=== PATIENT | female | born 1940 | race Caucasian/White ===

== ENCOUNTER → 2016-09-25 | Outpatient (CLI) | payer OTHER ==
[~2016-09-25] MED LIST: ACET-1256 PO; AMT50 PO; ASCO100061 PO; ASPEC81 PO; ATOR-24 PO; CHOL2000 PO; CPXI SC; CYAN10005 PO; GABA800T2 PO; HYDR-3983 PO; LINA1CAP PO; LISI-461 PO; MECL1TAB42 PO; NRN100 PO; PANT40TA PO; TERA5CAP PO
--- NOTE | 2016-09-25 17:03 | DIAGNOSTIC IMAGING REPORT ---
Venous Doppler left leg LEFT VENOUS DOPP LOWER EXT UNILAT CLINICAL HISTORY: M79.89 Leg swelling pain. Edema. TECHNIQUE: Venous Doppler COMPARISON STUDY: None FINDINGS: Normal study IMPRESSION: Normal study Electronically signed by: Richie Barcenas M.D. 09/25/2016 5:01 PM Dictated Date/Time: 09/25/2016 5:01 PM
--- NOTE | 2016-10-02 09:08 | CODING QUERY MEDICAL NECESSITY ---
SUPPORTING DIAGNOSIS NEEDED A supporting diagnosis is required for the test/procedure performed on this patient in order for us to be reimbursed by the patient's insurance. Please provide a supporting diagnosis for the following test/procedure listed below next to the test name along with your signature. *If there is no additional diagnosis for this patient that would support the following test/procedure please document that below next to the test/procedure. Test(s)/Procedure(s) that require a supporting diagnosis: * VENOUS DOPPLER LOWER EXTREMITY DIAGNOSIS: * DOS: 09/25/16 Provider Signature: Date: Thank you Gracie Gandhi Health Information Management Once completed, please kindly fax back to [phone] For questions please call [phone]
== END | disposition home or self-care (01) ==
LOC: C.ULTR 16:33
PROVIDERS: ATTEND Internal Medicine
DX: M79.89 Other specified soft tissue disorders (principal); R60.0 Localized edema

== ENCOUNTER → 2016-11-29 | Outpatient (CLI) | payer OTHER ==
[~2016-11-29] MED LIST changes: +ASPI-435 PO; +CLB/200 PO; +GABA1CAP4 PO; +LISI20TA3 PO
[2016-11-29 13:20] LABS: HEMATOCRIT 43.5 % (37-47); MEAN CELL VOLUME 96.5 fL (80-100); MEAN CORPUSCULAR HEMOGLOBIN 30.2 pg (25-34); MEAN CORPUSCULAR HGB CONC 31.3 g/dl (32-36); MEAN PLATELET VOLUME 10.7 fL (7.4-10.4); PLATELET COUNT 253 K/uL (130-400); RED BLOOD COUNT 4.51 M/uL (4.2-5.4); WHITE BLOOD COUNT 7.68 K/uL (4.8-10.8)
[2016-11-29 13:44] LABS: ESTIMATED AVERAGE GLUCOSE 120 mg/dl; HA1C FLAG Normal (Normal)
[2016-11-29 13:45] LABS: ALT/SGPT 21 U/L (12-78); AST/SGOT 18 U/L (15-37); BLOOD UREA NITROGEN 22 mg/dl (7-18); BUN/CREATININE RATIO 16.9 (10-20); CALCIUM 9.4 mg/dl (8.5-10.1); CARBON DIOXIDE 33 mmol/L (21-32); CHLORIDE 104 mmol/L (98-107); GLUCOSE 87 mg/dl (70-99); SODIUM 141 mmol/L (136-145)
[2016-11-29 13:56] LABS: ALKALINE PHOSPHATASE 158 U/L (45-117)
== END | disposition home or self-care (01) ==
LOC: C.LAB1850 12:22
PROVIDERS: ATTEND Internal Medicine
DX: R73.01 Impaired fasting glucose (principal); I10 Essential (primary) hypertension

== ENCOUNTER 2017-05-17 07:41 | Emergency (ER) | payer OTHER ==
[~2017-05-17] VITALS: Ht 175.3 cm; Wt 110.2 kg
[~2017-05-17 07:41] MED LIST changes: -ASPI-435 PO; -CLB/200 PO; -GABA1CAP4 PO; -LISI20TA3 PO
[2017-05-17 07:44] VITALS: TEMP 36.8; Ht 175.3 cm; Wt 110.2 kg
[2017-05-17] MEDS ORDERED: GABA1CAP4 PO (08:08)
[2017-05-17] MEDS ORDERED: CLB/200 PO (08:08)
[2017-05-17] MEDS ORDERED: ASPI-435 PO (08:08)
[2017-05-17] MEDS ORDERED: LISI20TA3 PO (08:08)
--- NOTE | 2017-05-17 08:17 | EMERGENCY ROOM VISIT NOTE ---
History Report prepared by Adry: Leana Daugherty Under the Supervision of: Dr. Jose Magana M.D. First contact with patient: 07:51 Chief Complaint: LACERATION/CUT (SUT/DERMABOND) Stated Complaint: FALL/LACERATION Nursing Triage Summary: pt has hx of MS and leg weakness, this am in [place] pt states " i just took a tumble" hit back of head on the wall" normally uses a walker. no loc History of Present Illness The patient is a 76 year old female who presents to the Emergency Room with complaints of an episode of a fall occurring this morning. The patient was in her bedroom. She typically ambulates with a walker due to her MS. This morning her legs felt weak which she states is typical of her MS. This caused her to fall. She denies LOC. She did hit her head and has a small laceration to the back of her head. The patient denies headache, changes in vision, changes in hearing, and neck pain. Her tetanus is up to date. She was brought to the ED by ambulance. Source of History: patient Onset: [employer] Position: other (global) Quality: other (fall) Timing: other (episode) Associated Symptoms: + weakness (legs) Note: Pt has small laceration to head Review of Systems All systems have been listed, reviewed, and are negative other than those previously mentioned. Please see Additional Medical History Sheet. 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 (15) Trigeminal neuralgia (16) Trigeminal neuralgia of left side of face (17) UTI, MS, weakness (18) UTI, MS, weakness Surgical Problems: (1) Hysterectomy Family History FH: HTN (hypertension) FH: cancer FH: diabetes mellitus FH: heart disease Social History Smoking Status: Former Smoker Alcohol Use: none Drug Use: none Marital Status: Housing Status: lives alone Occupation Status: retired Current/Historical Medications Scheduled Amitriptyline Hcl (Elavil), 50 MG PO HS Ascorbic Acid (Ascorbic Acid), 1,000 MG PO BID Aspirin (Aspirin 81), 81 MG PO DAILY Atorvastatin (Lipitor), 40 MG PO HS Celecoxib (CeleBREX), 200 MG PO BID Cholecalciferol (Vitamin D3), 2,000 INTER.UNIT PO DAILY Cyanocobalamin (Vitamin B-12), 1,000 MCG PO DAILY Gabapentin (Neurontin), 1,600 MG PO TID Gabapentin (Gabapentin), 300 MG PO TID Glatiramer Acetate (Copaxone), 20 MG SC DAILY Lisinopril (Prinivil), 20 MG PO DAILY Pantoprazole Sodium (Protonix), 40 MG PO DAILY Terazosin (Hytrin), 5 MG PO HS Scheduled PRN Acetaminophen (Tylenol), 500 MG PO for Pain Allergies Coded Allergies: No Known Allergies (Unverified , 12/18/15) Physical Exam Vital Signs Date Time Temp Pulse Resp B/P (MAP) Pulse Ox O2 Delivery O2 Flow Rate FiO2 05/17/17 08:53 80 18 108/51 93 Room Air 05/17/17 07:44 36.8 75 19 116/53 92 Room Air Physical Exam GENERAL: Patient awake, alert, oriented x 3. Patient follows commands. Patient does not appear toxic. Patient is adequately hydrated and well- nourished. SKIN: No erythema, pallor, cyanosis or rash HEENT: Normal head, 1.5 cm gaping laceration to the mid-occiput. Pupils equal, reactive to light and accommodation. Ears normal. Oral cavity and posterior pharynx appear normal. Neck: Without adenopathy, no neck vein distention. LUNGS: Clear to auscultation. No wheezes, no rales, no rhonchi. HEART: No murmurs. No gallops. No rubs NEUROLOGIC: Cranial nerves II-XII within normal limits. No gross motor sensory function deficits. Medical Decision & Procedures Procedure Location: Scalp Total length: 1.5 cm Complexity: Simple Copious irrigation was performed using NSS. The hair was cleared from the wound. Debridement was not performed. The wound edges were approximated using 2 surgical jeffrey in the standard fashion. Hemostasis and excellent approximation was achieved. Detailed wound care instructions and signs and symptoms of infection reviewed with the patient. No complications and the patient tolerated the procedure well. ED Course 0751: Past medical records reviewed. The patient was evaluated in room A3. A complete history and physical examination was performed. 0754: At this time I performed a laceration repair. Please see procedure note above for further details. 0800: I discussed the results and treatment plan with the patient. I answered all pertaining questions that she had. She expressed understanding and verbalized agreement. The patient will be discharged home. Medical Decision Nurses notes reviewed. Medical history sheet reviewed. Differential diagnosis includes but is not limited to: fall, scalp laceration, closed head injury, neck injury. 76-year-old female fell this morning which she attributes to her MS. The patient's had falls like this in the past there is no preceding syncope or dizziness. The patient has a small laceration over her occiput. She has no headache change in vision or hearing. The patient has no neck pain. The laceration was stapled.. I do not believe the patient requires any imaging or lab tests. The patient is safe to return home. Jeffrey should be removed in approximately one week. Medication Reconcilliation Current Medication List: was personally reviewed by me Blood Pressure Screening Patient's blood pressure: Normal blood pressure Impression Primary Impression: Laceration of scalp Additional Impression: Fall Scribe Attestation The scribe's documentation has been prepared under my direction and personally reviewed by me in its entirety. I confirm that the note above accurately reflects all work, treatment, procedures, and medical decision making performed by me. Departure Information Dispostion Home / Self-Care Referrals Naun Alvarez M.D. (PCP) Forms HOME CARE DOCUMENTATION FORM, IMPORTANT VISIT INFORMATION Patient Instructions ED Wound Care, [facility] Additional Instructions Watch for any signs of infection: Redness, swelling, pus. If you note any signs of infection return here immediately. Otherwise, return here for staple removal in approximately one week. Problem Qualifiers Primary Impression: Laceration of scalp Encounter type: initial encounter Qualified Codes: S01.01XA - Laceration without foreign body of scalp, initial encounter Additional Impression: Fall Encounter type: initial encounter Qualified Codes: W19.XXXA - Unspecified fall, initial encounter
[2017-05-17 08:53] VITALS: BP 108/51; PULSE 80; O2SAT 93
== END 2017-05-17 08:54 | disposition home or self-care (01) ==
LOC: EDBD 07:41 → C.EDA 07:42
DX: S01.01XA Laceration without foreign body of scalp, initial encounter (principal); W19.XXXA Unspecified fall, initial encounter; I10 Essential (primary) hypertension; E21.3 Hyperparathyroidism, unspecified; G35 Multiple sclerosis; N31.9 Neuromuscular dysfunction of bladder, unspecified; Z91.81 History of falling; Z87.11 Personal history of peptic ulcer disease; Z87.19 Personal history of other diseases of the digestive system; Z87.440 Personal history of urinary (tract) infections; Z87.891 Personal history of nicotine dependence; Z79.82 Long term (current) use of aspirin; Z79.899 Other long term (current) drug therapy; Z82.49 Family history of ischemic heart disease and other diseases of the circulatory system; Z80.9 Family history of malignant neoplasm, unspecified; Z83.3 Family history of diabetes mellitus

== ENCOUNTER → 2017-12-04 | Outpatient (CLI) | payer OTHER ==
[~2017-12-04] MED LIST changes: -ASPEC81 PO; +ASPI-435 PO; +CLB/200 PO; +GABA-1219 PO; -HYDR-3983 PO; -LINA1CAP PO; -LISI-461 PO; +LISI20TA3 PO; -MECL1TAB42 PO; -NRN100 PO
[2017-12-04 12:31] LABS: BASO % 0.5 %; BASO ABS # 0.04 K/uL (0-0.2); EOS % 5.4 %; EOS ABS # 0.44 K/uL (0-0.5); HEMATOCRIT 42.5 % (37-47); HEMOGLOBIN 13.5 g/dL (12.0-16.0); IG# 0.03 K/uL (0.00-0.02); LYMPH % 23.7 %; LYMPH ABS # 1.94 K/uL (1.2-3.4); MEAN CELL VOLUME 95.9 fL (80-100); MEAN CORPUSCULAR HEMOGLOBIN 30.5 pg (25-34); MEAN CORPUSCULAR HGB CONC 31.8 g/dl (32-36); MEAN PLATELET VOLUME 10.7 fL (7.4-10.4); MONO % 6.7 %; MONO ABS # 0.55 K/uL (0.11-0.59); NEUT % 63.3 %; NEUT ABS # 5.18 K/uL (1.4-6.5); PLATELET COUNT 277 K/uL (130-400); RED CELL DISTRIBUTION WIDTH CV 13.2 % (11.5-14.5); RED CELL DISTRIBUTION WIDTH SD 45.7 fL (36.4-46.3); WHITE BLOOD COUNT 8.18 K/uL (4.8-10.8)
[2017-12-04 13:00] LABS: HEMOGLOBIN A1C 5.7 % (4.5-5.6)
[2017-12-04 13:14] LABS: ALBUMIN 3.5 gm/dl (3.4-5.0); ALT/SGPT 17 U/L (12-78); AST/SGOT 18 U/L (15-37); BLOOD UREA NITROGEN 15 mg/dl (7-18); CALCIUM 9.2 mg/dl (8.5-10.1); CARBON DIOXIDE 30 mmol/L (21-32); CREATININE 0.83 mg/dl (0.60-1.20); GLUCOSE 97 mg/dl (70-99); SODIUM 141 mmol/L (136-145)
[2017-12-04 13:17] LABS: ALKALINE PHOSPHATASE 174 U/L (45-117); CHOLESTEROL 109 mg/dl (0-200); LDL CHOLESTEROL CALCULATED 32 mg/dl; TOTAL PROTEIN 7.3 gm/dl (6.4-8.2)
== END | disposition home or self-care (01) ==
LOC: C.LABBFT 11:00
PROVIDERS: ATTEND Internal Medicine
DX: R73.01 Impaired fasting glucose (principal); E78.5 Hyperlipidemia, unspecified; I10 Essential (primary) hypertension

== ENCOUNTER → 2017-12-12 | Outpatient (CLI) | payer OTHER | END | disposition home or self-care (01) | LOC: C.LABBFT 10:22 | PROVIDERS: ATTEND Internal Medicine | DX: Z00.00 Encounter for general adult medical examination without abnormal findings (principal) ==

== ENCOUNTER 2018-12-10 13:37 | Inpatient (IN) ==
[2018-12-10] MEDS ORDERED: FAMOTIDINE 20MG/5ML IV PUSH IV STA (14:37)
[2018-12-10 15:06] LABS: Basophils # (auto) 0.04 K/uL (0-0.2); Basophils % (auto) 0.3 %; Eosinophils # (auto) 0.19 K/uL (0-0.5); Eosinophils % (auto) 1.2 %; Hematocrit (blood only) 36.5 % (37-47); Hemoglobin 12.7 g/dL (12.0-16.0); Immature Granulocytes # (auto) 0.06 K/uL (0.00-0.02); Immature Granulocytes % (auto) 0.4 %; Lymphocytes # (auto) 1.38 K/uL (1.2-3.4); Mean Corpuscular Hgb Conc 34.8 g/dL (32-36); Mean Corpuscular Volume 91.5 fL (80-100); Mean Platelet Volume 9.5 fL (7.4-10.4); Monocytes # (auto) 1.06 K/uL (0.11-0.59); Monocytes % (auto) 6.9 %; Neutrophils # (auto) 12.67 K/uL (1.4-6.5); Neutrophils % (auto) 82.2 %; Platelet Count 368 K/uL (130-400); RDW Standard Deviation 43.9 fL (36.4-46.3); Red Blood Count 3.99 M/uL (4.2-5.4)
[2018-12-10 15:20] LABS: Partial Thromboplastin Ratio 0.9; Prothrombin Time 10.2 Seconds (9.0-12.0)
[2018-12-10 15:28] LABS: Alanine Aminotransferase 15 U/L (12-78); Albumin Level 3.3 gm/dl (3.4-5.0); Aspartate Aminotransferase 17 U/L (15-37); BUN Creatinine Ratio 20.5 (10-20); Blood Urea Nitrogen 20 mg/dl (7-18); Calcium 9.9 mg/dl (8.5-10.1); Carbon Dioxide 34 mmol/L (21-32); Chloride 96 mmol/L (98-107); Creatinine Clr Calc Pharmacy 56.4 ml/min; Est GFR (African American) 62.4; Est GFR (Non-African American) 53.8; Glucose 104 mg/dl (70-99); Potassium 5.1 mmol/L (3.5-5.1); Sodium 132 mmol/L (136-145)
[2018-12-10 15:33] LABS: Albumin Globulin Ratio 0.7 (0.9-2); Alkaline Phosphatase 121 U/L (45-117); Bilirubin,Total 0.3 mg/dl (0.2-1); Globulin 4.5 gm/dl (2.5-4.0); Total Protein 7.8 gm/dl (6.4-8.2); Troponin I < 0.015 ng/ml (0-0.045)
--- NOTE | 2018-12-10 15:50 | CT Scan Report ---
CT abd pelvis wo con CLINICAL HISTORY: 78 years-old Female presenting with upper abd pain, vomiting. TECHNIQUE: Multidetector CT of the abdomen and pelvis was performed without the use of intravenous co ntrast. IV contrast: None. One or more dose lowering techniques were used consistent with the princip les of ALARA (as low as reasonably achievable), including automatic exposure control, mA or kV adjust ment to individual patient size, and/or use of iterative reconstruction. COMPARISON: 05/27/2018. CT DOSE (mGy.cm): The estimated cumulative dose is 1580.18 mGy.cm. FINDINGS: [employer] topogram: Unremarkable. Lung bases: Top normal heart size. Coronary artery calcification. No pericardial or pleural effusion. Extensive bandlike opacities at the lung bases likely atelectasis or scarring. Mosaic attenuation ma y suggest small airways disease. Liver: Normal morphology. No liver lesion. Patent hepatic vasculature. Biliary: No gross biliary ductal dilatation allowing for noncontrast technique. Normal gallbladder. Pancreas: Moderate parenchymal atrophy. Spleen: Normal noncontrast appearance. Adrenal glands: Normal. Kidneys and ureters: Parenchymal atrophy suggested. Exophytic cyst likely present at the upper pole o f the left kidney. No hydronephrosis. No nephrolithiasis. Ureters nondistended. Bladder: A Gamboa catheter decompresses the urinary bladder. Pelvic organs: Uterus surgically absent. Left ovary may still be present unchanged in appearance from prior exam. The right ovary is not visualized. Bowel: Infiltration of the mesorectal fat in the presacral region is new from prior. No significant w all thickening of the rectum. Diverticulosis of the proximal to mid sigmoid colon. No wall thickening or pericolonic inflammatory change. A limited portion of the abdomen is nonocclusive within the fiel d-of-view on the far left lateral aspect due to the configuration of the pannus and patient positioni ng. Peritoneal cavity: No free fluid or intraperitoneal gas. Lymph nodes: No gross lymphadenopathy allowing for noncontrast technique. Vasculature: Atherosclerosis of the normal caliber abdominal aorta. Abdominal wall: Pannus not fully included within the [id number]. Low density subcutaneous nodule i ntimately associated with the overlying cutis measuring 2 cm in the precordial/epigastric region, lik clare epidermal inclusion cyst. Musculoskeletal: Degenerative changes of the spine. Osteopenia. Old left lateral ninth rib fractures suggested. Moderate compression fracture of L1 as on prior exam. IMPRESSION: 1. Allowing for noncontrast technique, no acute intra-abdominal pathology in the upper abdomen. Singh warren, new infiltrative change in the mesorectal fat along the posterior rectum without accompanying ch anges of the rectum. This is not specific and proctitis is not favored as the etiology for this findi ng. Consider rectal exam if appropriate. 2. Diverticulosis coli. No evidence of diverticulitis. 3. Chronic compression fracture of L1. Electronically signed by: Sanjeev Miller M.D. 12/10/2018 3:49 PM
--- NOTE | 2018-12-10 16:14 | XRay Report ---
XR chest 1V portable CLINICAL HISTORY: 78 years-old Female presenting with Chest Pain, weakness. TECHNIQUE: Portable upright AP view of the chest was obtained. COMPARISON: . FINDINGS: Atherosclerosis of the aortic arch. Cardiac silhouette borderline enlarged. Slight interval improved aeration of the lung bases with decrease in bibasilar vague opacity. No new focal opacity. No large e ffusion or pneumothorax. Degenerative changes of the thoracic spine. Upper abdomen normal. IMPRESSION: 1. Improved aeration of the lung bases since the prior exam. Minimal bibasilar atelectasis suspected . 2. Borderline cardiomegaly. Electronically signed by: Sanjeev Miller M.D. 12/10/2018 4:12 PM
[2018-12-10] MEDS ORDERED: PANTOprazole 80 MG in DEXTROSE 5% 100 ML IV ONE (16:30)
--- NOTE | 2018-12-10 17:24 | Emergency Department Note ---
ED Visit Note I, Gabi Mueller, PGY-2, saw and assisted in the care of this patient with Dr. Chiu. . Resident Activity Tracking Resident Involvement: Resident Care Provided Care Provided: Adult ED : Chest pain Qualifiers: Chest pain type: unspecified Qualified Code(s): R07.9 - Chest pain, unspecified
--- NOTE | 2018-12-10 17:57 | Emergency Department Note ---
Entered by Chuyita Toro acting as a scribe for ED Provider Note CHIEF COMPLAINT: Chest Pain HISTORY OF PRESENT ILLNESS: The patient is an 78 year old female who presents to the Emergency Room with complaints of chest pain occurring at 0300 this morning. She states that she woke up with heart burn from her throat to her chest. She states that she takes a daily Protonix. The patient states that she mixed baking soda and water that took away her symptoms completely. She did report that she vomited twice and states that her vomit looked like "coffee grounds." She states that she had a similar episode in 2011 when she had ulcerative esophagitis. The patient states that she takes a daily aspirin but is not on other blood thinners. She reports that she was placed on Prednisone on the . She also reports a history of MS, hysterectomy, and urinary retention. She states that she is a prior smoker and that she smoked from age [age]. She denies recent alcohol or drug use. Pt denies LOC, headache, fevers, chills, diaphoresis, visual changes, neck pain, breathing difficulties, abdominal pain, back pain, melena, hematochezia, urinary symptoms, numbness, weakness, lymphadenopathy, rash, or other complaints. REVIEW OF SYSTEMS: See HPI for pertinent positives and negatives. A total of ten systems were reviewed and were otherwise negative. PMHx/PSHx: SVT, HLD, HTN, UTI SOCIAL HISTORY: Patient lives at home. PHYSICAL EXAM: GENERAL: Awake, alert, uncomfortable-appearing, in no distress HENT: Normocephalic, atraumatic. Oropharynx unremarkable. EYES: PERRL. Normal conjunctiva. Sclera non-icteric. NECK: Inspection normal. Non-tender. Supple. No nuchal rigidity. FROM. No masses. RESPIRATORY: Clear to auscultation. No wheezes. No rales. Normal respiratory effort. CARDIAC: Normal rate. Normal rhythm. No murmurs. No rubs. Extremities warm and well perfused. Pulses equal. No JVD. GI: Soft, non-distended. Epigastric tenderness to palpation. No rebound or guarding. No masses. RECTAL: Deferred. MUSCULOSKELETAL: Atraumatic. Chest examination reveals no tenderness. The back is symmetrical on inspection without obvious abnormality. There is no CVA tenderness to palpation. No joint edema. LOWER EXTREMITIES: Calves are equal size bilaterally and non-tender. 2+ lower extremity edema. No discoloration. Paralysis to the lower extremities. NEURO: Normal sensorium. No sensory or motor deficits noted. SKIN: No rash or jaundice noted. EMERGENCY DEPARTMENT COURSE: 1402: The patient was evaluated by Dr. Mueller-Resident. 1501: Past medical records reviewed. The patient was evaluated in room C11B, and a complete history and physical examination were performed. 1528: The patient's hemoccult was negative. 1626: Dr. Mueller discussed the patient's case with Dr. Jeremy Simon who will evaluate the patient for further management. MEDICAL DECISION MAKING: Prior records/ancillary studies reviewed. Triage Nursing notes reviewed and agree them. Additional history obtained from the family. The patient's history was concerning for chest pain and vomiting. Differential diagnosis: Etiologies such as cardiac ischemia, aortic dissection, pulmonary embolism, pneumonia, pneumothorax, musculoskeletal, infections, pericarditis, myocarditis, esophageal rupture, gastrointestinal, as well as others were entertained. Physical examination: As above. Patient had epigastric tenderness. ER treatment provided: The patient was given IV Pepcid and IV Protonix Diagnostic interpretation by me: The electrocardiogram was negative for pathologic change. The labs revealed a mild leukocytosis on CBC. Chemistry panel cardiac markers negative. Hemoccult negative. Imaging studies: CT scan of the and pelvis revealed no findings to explain her upper abdominal tenderness or vomiting. She had no lower abdominal or pelvic complaints. Chest x-ray negative. Consultation: A consultation was placed with the hospitalist. The case was discussed and diagnostics were reviewed. The patient was evaluated in the ER for further treatment. The patient was seen and examined with , resident physician. We discussed the case and treatments ordered, reviewed the results, and determine the disposition. I have been directly involved with the management and disposition as well as independently evaluated the patient as documented in this note. I gave my usual and customary discussion regarding this issue. IMPRESSION: Upper GI bleed, chest pain PLAN: Being evaluated by hospitalist The scribe's documentation has been prepared under my direction and personally reviewed by me in its entirety. I confirm that the note above accurately reflects all work, treatment, procedures, and medical decision making performed by me. Impression & Plan Upper GI bleed, Chest pain Past Med/Surg History Medical History Urinary retention Constipation Fever Abnormal urinalysis SVT (supraventricular tachycardia) Paraplegia Lymphedema of left leg (Chronic) History of multiple sclerosis (Chronic) Multiple sclerosis Trigeminal neuralgia of left side of face (Resolved) Left-sided weakness (Acute) Family History Other Family history non-contributory Social History Preferred Language: Somali Communication Ability: Effective Beliefs That Will Affect Care: None Current Living Situation: Alone Current Living Situation Comment: Home Health Feels Safe at Home: Yes Smoking Status: Former smoker Second Hand Exposure: No Hx Alcohol Use: No Hx Substance Use: No Results & Data Vital Signs Vital Signs - 24 hr 12/10/18 13:57 12/10/18 14:37 12/10/18 15:27 Temperature 37.2 C Temperature Source Oral Sepsis Recent Fever Within 48 Hours No Sepsis New/Unexplained Change in Mental Status No Sepsis Action Taken by Nursing No Action Required Pulse Rate 88 Pulse Rate [Right Finger] 85 Respiratory Rate 20 20 Respiratory Effort / Characteristics Non-Labored Spontaneous Non-Labored Spontaneous Respiratory Depth Normal Normal Respiratory Pattern Regular Regular Blood Pressure 150/68 H Blood Pressure [Right Arm] 130/59 L Blood Pressure Mean 95 Blood Pressure Mean [Right Arm] 82 Blood Pressure Position Lying Blood Pressure Position [Right Arm] Lying Pulse Oximetry 97 95 96 Oxygen Delivery Method Room Air Room Air Room Air Home Medications Current Medication List: was personally reviewed by me Laboratory Data Attestation: I reviewed the patient's lab results. Result diagrams: 12/10/18 14:49 12/10/18 14:49 Lab Results 12/10/18 12/10/18 12/10/18 Range/Units 14:49 14:49 14:49 WBC 15.40 H (4.8-10.8) K/uL RBC 3.99 L (4.2-5.4) M/uL Hgb 12.7 (12.0-16.0) g/dL Hct 36.5 L (37-47) % MCV 91.5 (80-100) fL MCH 31.8 (25-34) pg MCHC 34.8 (32-36) g/dL RDW Std Deviation 43.9 (36.4-46.3) fL RDW Coeff of Aparna 13.0 (11.5-14.5) % Plt Count 368 (130-400) K/uL MPV 9.5 (7.4-10.4) fL Immature Gran % (Auto) 0.4 % Neut % (Auto) 82.2 % Lymph % (Auto) 9.0 % [place] % (Auto) 6.9 % Eos % (Auto) 1.2 % Baso % (Auto) 0.3 % Immature Gran # (Auto) 0.06 H (0.00-0.02) K/uL Neut # (Auto) 12.67 H (1.4-6.5) K/uL Lymph # (Auto) 1.38 (1.2-3.4) K/uL [place] # (Auto) 1.06 H (0.11-0.59) K/uL Eos # (Auto) 0.19 (0-0.5) K/uL Baso # (Auto) 0.04 (0-0.2) K/uL PT 10.2 (9.0-12.0) Seconds INR 1.0 (0.9-1.1) APTT 25.0 (21.0-31.0) Seconds PTT Ratio 0.9 Sodium 132 L (136-145) mmol/L Potassium 5.1 (3.5-5.1) mmol/L Chloride 96 L (98-107) mmol/L Carbon Dioxide 34 H (21-32) mmol/L Anion Gap 2.0 L (3-11) BUN 20 H (7-18) mg/dl Creatinine 0.99 (0.6-1.2) mg/dl Est Cr Clr Drug Dosing 56.4 ml/min Est GFR ( Amer) 62.4 Est GFR (Non-Af Amer) 53.8 BUN/Creatinine Ratio 20.5 H (10-20) Glucose 104 H (70-99) mg/dl Calcium 9.9 (8.5-10.1) mg/dl Total Bilirubin 0.3 (0.2-1) mg/dl AST 17 (15-37) U/L ALT 15 (12-78) U/L Alkaline Phosphatase 121 H (45-117) U/L Troponin I < 0.015 (0-0.045) ng/ml Total Protein 7.8 (6.4-8.2) gm/dl Albumin 3.3 L (3.4-5.0) gm/dl Globulin 4.5 H (2.5-4.0) gm/dl Albumin/Globulin Ratio 0.7 L (0.9-2) Lipase 186 (73-393) U/L Blood Type Antibody Screen 12/10/18 Range/Units 14:49 WBC (4.8-10.8) K/uL RBC (4.2-5.4) M/uL Hgb (12.0-16.0) g/dL Hct (37-47) % MCV (80-100) fL MCH (25-34) pg MCHC (32-36) g/dL RDW Std Deviation (36.4-46.3) fL RDW Coeff of Aparna (11.5-14.5) % Plt Count (130-400) K/uL MPV (7.4-10.4) fL Immature Gran % (Auto) % Neut % (Auto) % Lymph % (Auto) % [place] % (Auto) % Eos % (Auto) % Baso % (Auto) % Immature Gran # (Auto) (0.00-0.02) K/uL Neut # (Auto) (1.4-6.5) K/uL Lymph # (Auto) (1.2-3.4) K/uL [place] # (Auto) (0.11-0.59) K/uL Eos # (Auto) (0-0.5) K/uL Baso # (Auto) (0-0.2) K/uL PT (9.0-12.0) Seconds INR (0.9-1.1) APTT (21.0-31.0) Seconds PTT Ratio Sodium (136-145) mmol/L Potassium (3.5-5.1) mmol/L Chloride (98-107) mmol/L Carbon Dioxide (21-32) mmol/L Anion Gap (3-11) BUN (7-18) mg/dl Creatinine (0.6-1.2) mg/dl Est Cr Clr Drug Dosing ml/min Est GFR ( Amer) Est GFR (Non-Af Amer) BUN/Creatinine Ratio (10-20) Glucose (70-99) mg/dl Calcium (8.5-10.1) mg/dl Total Bilirubin (0.2-1) mg/dl AST (15-37) U/L ALT (12-78) U/L Alkaline Phosphatase (45-117) U/L Troponin I (0-0.045) ng/ml Total Protein (6.4-8.2) gm/dl Albumin (3.4-5.0) gm/dl Globulin (2.5-4.0) gm/dl Albumin/Globulin Ratio (0.9-2) Lipase (73-393) U/L Blood Type O Positive Antibody Screen NEGATIVE Administered Medications Discontinued Medications Famotidine (Pepcid 20mg Iv Push) 20 mg IV ONE STA Stop: 12/10/18 14:38 Last Admin: 12/10/18 15:09 Dose: 20 mg Documented by: [id number] Pantoprazole Sodium 80 mg/ (Dextrose) 120 mls @ 480 mls/hr IV NOW ONE Stop: 12/10/18 16:44 Last Infusion: 12/10/18 17:12 Dose: 0 mls/hr Documented by: [id number] Admin: 12/10/18 16:40 Dose: 480 mls/hr Documented by: [id number] Imaging Data Radiologist's Impression: Radiology results as stated below per my review and the radiologist's interpretation: CT abd pelvis wo con CLINICAL HISTORY: 78 years-old Female presenting with upper abd pain, vomiting. TECHNIQUE: Multidetector CT of the abdomen and pelvis was performed without the use of intravenous contrast. IV contrast: None. One or more dose lowering techniques were used consistent with the principles of ALARA (as low as re asonably achievable), including automatic exposure control, mA or kV adjustment to individual patient size, and/or use of iterative reconstruction. COMPARISON: 05/27/2018. CT DOSE (mGy.cm): The estimated cumulative dose is 1580.18 mGy.cm. FINDINGS: Roof Panel Hanger topogram: Unremarkable. Lung bases: Top normal heart size. Coronary artery calcification. No pericardial or pleural effusion. Extensive bandlike opacities at the lung bases likely atelectasis or scarring. Mosaic attenuation may suggest small airways disease. Liver: Normal morphology. No liver lesion. Patent hepatic vasculature. Biliary: No gross biliary ductal dilatation allowing for noncontrast technique. Normal gallbladder. Pancreas: Moderate parenchymal atrophy. Spleen: Normal noncontrast appearance. Adrenal glands: Normal. Kidneys and ureters: Parenchymal atrophy suggested. Exophytic cyst likely present at the upper pole of the left kidney. No hydronephrosis. No nephrolithiasis. Ureters nondistended. Bladder: A [place] catheter decompresses the urinary bladder. Pelvic organs: Uterus surgically absent. Left ovary may still be present unchanged in appearance from prior exam. The right ovary is not visualized. Bowel: Infiltration of the mesorectal fat in the presacral region is new from prior. No significant wall thickening of the rectum. Diverticulosis of the proximal to mid sigmoid colon. No wall thickening or pericolonic inflammatory change. A limited portion of the abdomen is nonocclusive within the field-of-v iew on the far left lateral aspect due to the configuration of the pannus and patient positioning. Peritoneal cavity: No free fluid or intraperitoneal gas. Lymph nodes: No gross lymphadenopathy allowing for noncontrast technique. Vasculature: Atherosclerosis of the normal caliber abdominal aorta. Abdominal wall: Pannus not fully included within the [id number]. Low density subcutaneous nodule intimately associated with the overlying cutis measuring 2 cm in the precordial/epigastric region, likely epidermal inclusion cyst. Musculoskeletal: Degenerative changes of the spine. Osteopenia. Old left lateral ninth rib fractures suggested. Moderate compression fracture of L1 as on prior exam. IMPRESSION: 1. Allowing for noncontrast technique, no acute intra-abdominal pathology in the upper abdomen. However, new infiltrative change in the mesorectal fat along the posterior rectum without accompanying changes of the rectum. This is not specific and proctitis is not favored as the etiology for this finding. Consider rectal exam if appropriate. 2. Diverticulosis coli. No evidence of diverticulitis. 3. Chronic compression fracture of L1. Electronically signed by: Sanjeev Miller M.D. 12/10/2018 3:49 PM XR chest 1V portable CLINICAL HISTORY: 78 years-old Female presenting with Chest Pain, weakness. TECHNIQUE: Portable upright AP view of the chest was obtained. COMPARISON: . FINDINGS: Atherosclerosis of the aortic arch. Cardiac silhouette borderline enlarged. Slight interval improved aeration of the lung bases with decrease in bibasilar vague opacity. No new focal opacity. No large effusion or pneumothorax. Dege nerative changes of the thoracic spine. Upper abdomen normal. IMPRESSION: 1. Improved aeration of the lung bases since the prior exam. Minimal bibasilar atelectasis suspected. 2. Borderline cardiomegaly. Electronically signed by: Sanjeev Miller M.D. 12/10/2018 4:12 PM ECG Data Attestation: I personally reviewed and interpreted this ECG as follows: Indication: chest pain Rate (beats per minute): 87 Rhythm: sinus rhythm (with bigemini) Findings: + other (poor R wave progression anteriorly ), + nonspecific-ST abn and + PAC Blood Pressure Blood Pressure Findings: Low blood pressure Blood Pressure Disposition: further management by hospitalist Discharge Plan Visit Data Chief Complaint: Illness ED Provider: Braden Chiu ED Midlevel Provider: Gabi Mueller Discharge Problem: Upper GI bleed, Chest pain Forms Stand Alone Forms: My [facility] Prescriptions Prescriptions: No Action ibuprofen [Advil] 200 mg Tablet 400 mg PO QID PRN (Reason: Pain) RF: 0 amitriptyline 50 mg Tablet 50 mg PO HS RF: 0 ascorbic acid (vitamin C) 1,000 mg Tablet Extended Release 1,000 mg PO BID RF: 0 aspirin 81 mg Tablet,Delayed Release (Dr/Ec) 81 mg PO QAM RF: 0 atorvastatin 40 mg Tablet 40 mg PO HS RF: 0 cholecalciferol (vitamin D3) [Vitamin D3] 2,000 unit Tablet 2,000 unit PO QAM RF: 0 cyanocobalamin (vitamin B-12) [Vitamin B-12] 1,000 mcg Tablet 1,000 mcg PO QAM RF: 0 gabapentin 600 mg Tablet Extended Release 24 Hr 1,900 mg PO BID RF: 0 glatiramer [Copaxone] 20 mg/mL Syringe 20 mg SUBCUT QAM RF: 0 lisinopril 20 mg Tablet 20 mg PO QAM RF: 0 pantoprazole 40 mg Tablet,Delayed Release (Dr/Ec) 40 mg PO QAM RF: 0 prednisone 20 mg tablet 20 mg PO UD RF: 0 Discharge Problem: Chest pain Qualifiers: Chest pain type: unspecified Qualified Code(s): R07.9 - Chest pain, unspecified The scribe's documentation has been prepared under my direction and personally reviewed by me in its entirety. I confirm that the note above accurately reflects all work, treatment, procedures, and medical decision making performed by me.
[2018-12-10] MEDS ORDERED: ONDANSETRON INJ 2 MG/ML 2 ML VIAL IV PRN (19:53)
[2018-12-10 20:43] LABS: Magnesium 2.2 mg/dl (1.8-2.4); Phosphorus 3.6 mg/dl (2.5-4.9)
--- NOTE | 2018-12-10 20:53 | History & Physical Report ---
Date of Service December 10, 2018 Assessment & Plan (1) Upper GI bleed: Patient with history of erosive esophagitis, has been taking ASA/Prednisone/NSAIDS. Acute worsening of reflux symptoms with possible coffee ground emesis. Patient hemodynamically stable, no nausea, exam benign, H/H stable near baseline values -Admit to medical floor -Place 2 PIVs -CBC q 12 hours, transfuse for active bleeding, symptomatic anemia or Hg < 7 -IV Protonix BID - discussed with Pharmacy -Hold ASA and antihypertensives -Advise against routine NSAID use -GI consultation - appreciate assistance with this case. Patient seen by Dr. Null in the past -NPO Present on Admission?: Yes (2) Chest pain: Patient describes substernal chest burning associated with bitter fluid in her mouth consistent with prior episodes of reflux. Troponin negative, EKG with some ST changes. Presently no chest discomfort -Continue to monitor for CP (3) HTN (hypertension): Blood pressure well controlled at present -Hold Lisinopril for now in setting of possible bleed -Continue to monitor Present on Admission?: Yes (4) HLD (hyperlipidemia): Chronic. Stable -Continue Atorvastatin Present on Admission?: Yes (5) Multiple sclerosis: Chronic. Stable -Continue Elavil -Continue Copaxone -Continue Gabapentin -Holding Prednisone for now, consider resuming after possible scope F/E/N - Heplock. Monitor electrolytes and replete as needed. NPO Ppx - low risk for DVT. IV protonix as above Code - DNR per discussion with patient Dispo - Admit to medical floor Present on Admission?: Yes History of Present Illness Chief Complaint: Reflux, CGE Primary Care Provider: Naun Alvarez MD Joan Mckenzie is a pleasant 78yo C female with history of MS, urinary retention with indwelling [place], ulcerative esophagitis presenting with re flux/nausea/vomiting/?coffee ground emesis. Patient states that this AM at 03:00 she woke with severe substernal burning and bitter tasting fluid in her mouth. She subsequently developed severe nausea with two episodes of vomiting dark brown liquid, possibly coffee ground material. She took Rolaids and Tums with minimal relief then drank some baking soda which resolved the symptoms. On arrival to the ER patient afebrile, hemodynamically stable, NAD. Heme negative stools. Symptoms have resolved. She feels well with no additional complaints. She takes ASA 81mg po daily, Prednisone 20mg po daily and occasional Advil - reports taking 3-4 doses of advil in the last few days. Does not drink EtOH. Overall, reflux symptoms have been well managed since the addition of Protonix ER Course: Pepcid IV, Protonix 80mg IV Allergies Allergy/AdvReac Type Severity Reaction Status Date / Time levofloxacin [From Levaquin] Allergy Unknown Unknown Unverified 12/10/18 14:03 Home Medications Home Medications Medication Instructions Recorded Confirmed Type amitriptyline 50 mg PO HS 06/14/18 12/10/18 History ascorbic acid (vitamin C) 1,000 mg PO BID 06/14/18 12/10/18 History aspirin 81 mg PO QAM 06/14/18 12/10/18 History atorvastatin 40 mg PO HS 06/14/18 12/10/18 History cholecalciferol (vitamin D3) 2,000 unit PO QAM 06/14/18 12/10/18 History [Vitamin D3] cyanocobalamin (vitamin B-12) 1,000 mcg PO QAM 06/14/18 12/10/18 History [Vitamin B-12] gabapentin 1,900 mg PO BID 06/14/18 12/10/18 History glatiramer [Copaxone] 20 mg SUBCUT QAM 06/14/18 12/10/18 History lisinopril 20 mg PO QAM 06/14/18 12/10/18 History pantoprazole 40 mg PO QAM 06/14/18 12/10/18 History ibuprofen [Advil] 400 mg PO QID PRN 07/01/18 12/10/18 History prednisone 20 mg PO UD 12/10/18 12/10/18 History Past Med/Surg History Medical History Urinary retention Constipation Fever Abnormal urinalysis SVT (supraventricular tachycardia) Paraplegia Lymphedema of left leg (Chronic) History of multiple sclerosis (Chronic) Multiple sclerosis Trigeminal neuralgia of left side of face (Resolved) Left-sided weakness (Acute) Family History Other Family history non-contributory Social History Preferred Language: Pashto Communication Ability: Effective Plate Preparer Required: No Beliefs That Will Affect Care: None Current Living Situation: Alone Current Living Situation Comment: Home Health Other Information That Helps Us Care for You: No Feels Safe at Home: Yes Safety Concerns: Feels Safe At This Time Smoking Status: Former smoker Smoking End Date: 2002 Second Hand Exposure: No Hx Alcohol Use: No Hx Substance Use: No Review of Systems Review of Systems: All systems reviewed & are unremarkable except as noted in HPI & below Physical Exam Physical Exam: General: patient resting comfortably, NAD, non-toxic in appearance, AA&O x 4 Skin: warm, dry, intact, no rashes or lesions HEENT: NC/AT, PERRL, EOMI, anicteric sclera, conjunctiva without injection, external ear normal to inspection and nontender, nares patent, moist mucus membranes, dentures in place, no oropharyngeal lesions, neck supple, trachea midline, no LAD, no thyromegaly, no JVD Heart: +S1/S2, regularly irregular with grouped beats, no m/r/g Lungs: equal air entry bilaterally, no rales/rhonchi/wheezes Abd: +BS, soft, NT/ND, no masses/organomegaly/ascites, no epigastric tenderness Ext: warm, 2+ pulses in UE/LE bilaterally, no clubbing/cyanosis, edema of le Results & Data Vital Signs (Past 12 Hours) Vital Signs Temp Pulse Pulse Resp BP BP Pulse Ox 12/10/18 19:18 80 18 117/62 95 12/10/18 17:56 80 22 119/54 L 95 12/10/18 15:27 85 20 130/59 L 96 12/10/18 14:37 95 12/10/18 13:57 37.2 C 88 20 150/68 H 97 Laboratory Results Lab Results 12/10/18 12/10/18 12/10/18 Range/Units 14:49 14:49 14:49 WBC 15.40 H (4.8-10.8) K/uL RBC 3.99 L (4.2-5.4) M/uL Hgb 12.7 (12.0-16.0) g/dL Hct 36.5 L (37-47) % MCV 91.5 (80-100) fL MCH 31.8 (25-34) pg MCHC 34.8 (32-36) g/dL RDW Std Deviation 43.9 (36.4-46.3) fL RDW Coeff of Aparna 13.0 (11.5-14.5) % Plt Count 368 (130-400) K/uL MPV 9.5 (7.4-10.4) fL Immature Gran % (Auto) 0.4 % Neut % (Auto) 82.2 % Lymph % (Auto) 9.0 % [place] % (Auto) 6.9 % Eos % (Auto) 1.2 % Baso % (Auto) 0.3 % Immature Gran # (Auto) 0.06 H (0.00-0.02) K/uL Neut # (Auto) 12.67 H (1.4-6.5) K/uL Lymph # (Auto) 1.38 (1.2-3.4) K/uL [place] # (Auto) 1.06 H (0.11-0.59) K/uL Eos # (Auto) 0.19 (0-0.5) K/uL Baso # (Auto) 0.04 (0-0.2) K/uL PT 10.2 (9.0-12.0) Seconds INR 1.0 (0.9-1.1) APTT 25.0 (21.0-31.0) Seconds PTT Ratio 0.9 Sodium 132 L (136-145) mmol/L Potassium 5.1 (3.5-5.1) mmol/L Chloride 96 L (98-107) mmol/L Carbon Dioxide 34 H (21-32) mmol/L Anion Gap 2.0 L (3-11) BUN 20 H (7-18) mg/dl Creatinine 0.99 (0.6-1.2) mg/dl Est Cr Clr Drug Dosing 56.4 ml/min Est GFR ( Amer) 62.4 Est GFR (Non-Af Amer) 53.8 BUN/Creatinine Ratio 20.5 H (10-20) Glucose 104 H (70-99) mg/dl Calcium 9.9 (8.5-10.1) mg/dl Total Bilirubin 0.3 (0.2-1) mg/dl AST 17 (15-37) U/L ALT 15 (12-78) U/L Alkaline Phosphatase 121 H (45-117) U/L Troponin I < 0.015 (0-0.045) ng/ml Total Protein 7.8 (6.4-8.2) gm/dl Albumin 3.3 L (3.4-5.0) gm/dl Globulin 4.5 H (2.5-4.0) gm/dl Albumin/Globulin Ratio 0.7 L (0.9-2) Lipase 186 (73-393) U/L Blood Type Antibody Screen 12/10/18 Range/Units 14:49 WBC (4.8-10.8) K/uL RBC (4.2-5.4) M/uL Hgb (12.0-16.0) g/dL Hct (37-47) % MCV (80-100) fL MCH (25-34) pg MCHC (32-36) g/dL RDW Std Deviation (36.4-46.3) fL RDW Coeff of Aparna (11.5-14.5) % Plt Count (130-400) K/uL MPV (7.4-10.4) fL Immature Gran % (Auto) % Neut % (Auto) % Lymph % (Auto) % [place] % (Auto) % Eos % (Auto) % Baso % (Auto) % Immature Gran # (Auto) (0.00-0.02) K/uL Neut # (Auto) (1.4-6.5) K/uL Lymph # (Auto) (1.2-3.4) K/uL [place] # (Auto) (0.11-0.59) K/uL Eos # (Auto) (0-0.5) K/uL Baso # (Auto) (0-0.2) K/uL PT (9.0-12.0) Seconds INR (0.9-1.1) APTT (21.0-31.0) Seconds PTT Ratio Sodium (136-145) mmol/L Potassium (3.5-5.1) mmol/L Chloride (98-107) mmol/L Carbon Dioxide (21-32) mmol/L Anion Gap (3-11) BUN (7-18) mg/dl Creatinine (0.6-1.2) mg/dl Est Cr Clr Drug Dosing ml/min Est GFR ( Amer) Est GFR (Non-Af Amer) BUN/Creatinine Ratio (10-20) Glucose (70-99) mg/dl Calcium (8.5-10.1) mg/dl Total Bilirubin (0.2-1) mg/dl AST (15-37) U/L ALT (12-78) U/L Alkaline Phosphatase (45-117) U/L Troponin I (0-0.045) ng/ml Total Protein (6.4-8.2) gm/dl Albumin (3.4-5.0) gm/dl Globulin (2.5-4.0) gm/dl Albumin/Globulin Ratio (0.9-2) Lipase (73-393) U/L Blood Type O Positive Antibody Screen NEGATIVE Diagnostic Findings XR chest 1V portable CLINICAL HISTORY: 78 years-old Female presenting with Chest Pain, weakness. TECHNIQUE: Portable upright AP view of the chest was obtained. COMPARISON: . FINDINGS: Atherosclerosis of the aortic arch. Cardiac silhouette borderline enlarged. Slight interval improved aeration of the lung bases with decrease in bibasilar vague opacity. No new focal opacity. No large effusion or pneumothorax. Degenerative changes of the thoracic spine. Upper abdomen normal. IMPRESSION: 1. Improved aeration of the lung bases since the prior exam. Minimal bibasilar atelectasis suspected. 2. Borderline cardiomegaly. Electronically signed by: Sanjeev Miller M.D. 12/10/2018 4:12 PM Dictated: 12/10/18 1611 Transcribed: 12/10/18 1611 --------- CT abd pelvis wo con CLINICAL HISTORY: 78 years-old Female presenting with upper abd pain, vomiting. TECHNIQUE: Multidetector CT of the abdomen and pelvis was performed without the use of intravenous contrast. IV contrast: None. One or more dose lowering techniques were used consistent with the principles of ALARA (as low as reasonably achievable), including automatic exposure control, mA or kV adjustment to individual patient size, and/or use of iterative reconstruction. COMPARISON: 05/27/2018. CT DOSE (mGy.cm): The estimated cumulative dose is 1580.18 mGy.cm. FINDINGS: Receiver Stocker topogram: Unremarkable. Lung bases: Top normal heart size. Coronary artery calcification. No pericardial or pleural effusion. Extensive bandlike opacities at the lung bases likely atelectasis or scarring. Mosaic attenuation may suggest small airways disease. Liver: Normal morphology. No liver lesion. Patent hepatic vasculature. Biliary: No gross biliary ductal dilatation allowing for noncontrast technique. Normal gallbladder. Pancreas: Moderate parenchymal atrophy. Spleen: Normal noncontrast appearance. Adrenal glands: Normal. Kidneys and ureters: Parenchymal atrophy suggested. Exophytic cyst likely present at the upper pole of the left kidney. No hydronephrosis. No nephrolithiasis. Ureters nondistended. Bladder: A [place] catheter decompresses the urinary bladder. Pelvic organs: Uterus surgically absent. Left ovary may still be present unchanged in appearance from prior exam. The right ovary is not visualized. Bowel: Infiltration of the mesorectal fat in the presacral region is new from prior. No significant wall thickening of the rectum. Diverticulosis of the proximal to mid sigmoid colon. No wall thickening or pericolonic inflammatory change. A limited portion of the abdomen is nonocclusive within the [id number] on the far left lateral aspect due to the configuration of the pannus and patient positioning. Peritoneal cavity: No free fluid or intraperitoneal gas. Lymph nodes: No gross lymphadenopathy allowing for noncontrast technique. Vasculature: Atherosclerosis of the normal caliber abdominal aorta. Abdominal wall: Pannus not fully included within the [id number]. Low density subcutaneous nodule intimately associated with the overlying cutis measuring 2 cm in the precordial/epigastric region, likely epidermal inclusion cyst. Musculoskeletal: Degenerative changes of the spine. Osteopenia. Old left lateral ninth rib fractures suggested. Moderate compression fracture of L1 as on prior exam. IMPRESSION: 1. Allowing for noncontrast technique, no acute intra-abdominal pathology in the upper abdomen. However, new infiltrative change in the mesorectal fat along the posterior rectum without accompanying changes of the rectum. This is not specific and proctitis is not favored as the etiology for this finding. Consider rectal exam if appropriate. 2. Diverticulosis coli. No evidence of diverticulitis. 3. Chronic compression fracture of L1. Electronically signed by: Sanjeev Miller M.D. 12/10/2018 3:49 PM Dictated: 12/10/18 1541 Transcribed: 12/10/18 1541 ECG Additional Comments: SR with PACs, rate=87, left axis Code Status & VTE Plan Code Status DNR (1) Chest pain Chest pain type: unspecified Qualified Code(s): R07.9 - Chest pain, unspecified (2) HTN (hypertension) Hypertension type: essential hypertension Qualified Code(s): I10 - Essential (primary) hypertension (3) HLD (hyperlipidemia) Hyperlipidemia type: unspecified Qualified Code(s): E78.5 - Hyperlipidemia, unspecified
[2018-12-10] MEDS: ATORVASTATIN 40 MG TAB PO SCH (21:03)
[2018-12-10] MEDS: AMITRIPTYLINE HCL 50 MG TAB PO SCH (21:03)
[2018-12-10] MEDS: GABAPENTIN 300 MG CAP PO SCH (21:47)
[2018-12-10] MEDS: GABAPENTIN 800 MG TAB PO SCH (21:47)
[2018-12-11 05:47] LABS: Basophils # (auto) 0.03 K/uL (0-0.2); Basophils % (auto) 0.3 %; Eosinophils # (auto) 0.03 K/uL (0-0.5); Eosinophils % (auto) 0.3 %; Hematocrit (blood only) 36.3 % (37-47); Hemoglobin 12.3 g/dL (12.0-16.0); Immature Granulocytes # (auto) 0.05 K/uL (0.00-0.02); Immature Granulocytes % (auto) 0.4 %; Lymphocytes # (auto) 1.51 K/uL (1.2-3.4); Lymphocytes % (auto) 13.5 %; Mean Corpuscular Hgb Conc 33.9 g/dL (32-36); Mean Corpuscular Volume 92.1 fL (80-100); Mean Platelet Volume 9.2 fL (7.4-10.4); Monocytes # (auto) 0.57 K/uL (0.11-0.59); Monocytes % (auto) 5.1 %; Neutrophils # (auto) 8.97 K/uL (1.4-6.5); Neutrophils % (auto) 80.4 %; Platelet Count 338 K/uL (130-400); RDW Coefficient of Variation 13.2 % (11.5-14.5); RDW Standard Deviation 44.7 fL (36.4-46.3); Red Blood Count 3.94 M/uL (4.2-5.4); White Blood Count 11.16 K/uL (4.8-10.8)
[2018-12-11 06:22] LABS: BUN Creatinine Ratio 22.3 (10-20); Calcium 9.9 mg/dl (8.5-10.1); Creatinine Clr Calc Pharmacy 54.3 ml/min; Est GFR (African American) 58.1; Est GFR (Non-African American) 50.1; Potassium 5.2 mmol/L (3.5-5.1)
[2018-12-11] MEDS: GABAPENTIN 800 MG TAB PO SCH ×2 (09:44→21:33)
[2018-12-11] MEDS: GABAPENTIN 300 MG CAP PO SCH ×2 (09:44→21:33)
[2018-12-11] MEDS: PANTOprazole 40 MG in SYRINGE 0 ML IV SCH ×2 (09:44→21:33)
--- NOTE | 2018-12-11 09:59 | Anesthesiology Consultation ---
Date of Service December 11, 2018 Assessment & Plan (1) Encounter for pre-operative examination: Chart Review Chart Review: Acceptable Risk for Surgery and Patient NOT seen in Pre Admission Testing Consults Requested none ASA ASA4 Proposed Anesthesia Anesthesia Type: MAC Risk / Benefits Reviewed With: PT / POA / Parent / Guardian, Accepts Plan and Informed Consent Obtained History Surgery Operation Date: 12/11/18 10:30 Proposed Procedures p Esophagogastroduodenoscopy Dr Null - Luis Cooley Case, DO Height/Weight Height: 5 ft 9 in Weight: 102.1 kg Allergies Allergy/AdvReac Type Severity Reaction Status Date / Time levofloxacin [From Levaquin] Allergy Unknown Unknown Unverified 12/10/18 14:03 Medications Home Medications Medication Instructions Recorded Confirmed Last Taken amitriptyline 50 mg PO HS 06/14/18 12/10/18 12/09/18 ascorbic acid (vitamin C) 1,000 mg PO BID 06/14/18 12/10/18 12/10/18 aspirin 81 mg PO QAM 06/14/18 12/10/18 12/10/18 atorvastatin 40 mg PO HS 06/14/18 12/10/18 12/09/18 cholecalciferol (vitamin D3) 2,000 unit PO QAM 06/14/18 12/10/18 12/10/18 [Vitamin D3] cyanocobalamin (vitamin B-12) 1,000 mcg PO QAM 06/14/18 12/10/18 12/10/18 [Vitamin B-12] gabapentin 1,900 mg PO BID 06/14/18 12/10/18 12/10/18 glatiramer [Copaxone] 20 mg SUBCUT QAM 06/14/18 12/10/18 12/09/18 lisinopril 20 mg PO QAM 06/14/18 12/10/18 12/10/18 pantoprazole 40 mg PO QAM 06/14/18 12/10/18 12/10/18 ibuprofen [Advil] 400 mg PO QID PRN 07/01/18 12/10/18 06/30/18 19:00 prednisone 20 mg PO UD 12/10/18 12/10/18 Unknown Active Medications Generic Name Dose Route Start Last Admin Trade Name Freq PRN Reason Stop Dose Admin Amitriptyline HCl 50 mg 12/10/18 21:00 12/10/18 21:03 Elavil PO 01/09/19 20:59 50 mg HS JAVID Administration Atorvastatin Calcium 40 mg 12/10/18 21:00 12/10/18 21:03 Lipitor PO 01/09/19 20:59 40 mg HS JAVID Administration Gabapentin 1,600 mg 12/10/18 21:00 12/11/18 09:44 Neurontin PO 01/09/19 20:59 1,600 mg BID JAVID Administration Gabapentin 300 mg 12/10/18 21:00 12/11/18 09:44 Neurontin PO 01/09/19 20:59 300 mg BID JAVID Administration Pantoprazole Sodium 40 mg/ 10 mls @ 5 mls/min 12/11/18 09:00 12/11/18 09:44 Syringe IV 01/10/19 08:59 5 mls/min BID@0900,2100 JAVID Administration Miscellaneous 1 ea 12/11/18 00:00 12/11/18 09:44 Order Awaiting Action N/A 01/10/19 00:00 Not Given QS JAVID Protocol Multi-Ingredient Cream 1 appln 12/11/18 09:00 12/11/18 12:19 Hydrocerin EXT 01/10/19 08:59 1 appln BID JAVID Administration Mupirocin 1 appln 12/11/18 14:00 12/11/18 15:09 Bactroban 2% EXT 01/10/19 13:59 1 appln TID JAVID Administration NPO Date Last Intake of Fluids: 12/11/18 Time Last Intake of Fluids: 08:00 Last Intake of Fluids Comment: Sip with meds Date Last Intake of Solids: 12/09/18 Time Last Intake of Solids: 15:00 Past Medical History Medical History Urinary retention Constipation Fever Abnormal urinalysis SVT (supraventricular tachycardia) Paraplegia Lymphedema of left leg (Chronic) History of multiple sclerosis (Chronic) Multiple sclerosis Trigeminal neuralgia of left side of face (Resolved) Left-sided weakness (Acute) Exercise / Class Metabolic Activity IV < 2 Limit ADL/Bedbound (Due to ms) Past Family History Family History Other Family history non-contributory Past Anesthesia History No Hx of Anesthesia Complications History of PONV No Hx of PONV and No Hx of Motion Sickness Social History Smoking Status: Former smoker Smoking End Date: 2002 Hx Alcohol Use: No Hx Substance Use: No Physical Exam Vital Signs Last Vital Signs Temp 37.1 C 12/11/18 15:35 Pulse 96 H 12/11/18 15:35 Resp 18 12/11/18 15:35 BP 116/53 L 12/11/18 15:35 Pulse Ox 96 12/11/18 15:35 Constitutional + obese ENMT Mouth: + edentulous; no TMJ abnormality and oral opening not small Thyromental Distance: > or= 3.5 Finger Breadths Mallampati Class: III Neck normal visual inspection, + short neck and + thick neck; neck extension not limited Respiratory normal respiratory effort Auscultation: lungs clear to auscultation bilaterally Cardiovascular Rate/Rhythm: regular rate and regular rhythm Heart Sounds: no murmur Neurologic + does not move all extremities (Cant move left leg, weak left arm - very little movement in right leg) Motor/Sensory: + sensory deficit Psychiatric Orientation: alert and oriented x 3 Testing Laboratory Results 12/11/18 05:35 12/11/18 05:35 12/10/18 12/10/18 14:49 14:49 PT 10.2 INR 1.0 APTT 25.0 Blood Type O Positive Antibody Screen NEGATIVE Electrocardiogram Date: 12/10/18 Findings: + NSR @ (87) Sinus rhythm with Premature atrial complexes in a pattern of bigeminy, Poor R wave progression, consider anterior NJ vs. lead placement vs. LVH, Abnormal ECG, When compared with ECG of 16-JUN-2018 07:03, Premature atrial complexes are now Present, AR interval has increased, Vent. rate has decreased BY 45 BPM, Nonspecific T wave abnormality no longer evident in Inferior leads Echocardiogram Date: 06/18/18 EF: 55-60% LV Function: normal Other Findings: + LVH (mild concentric) and + diastolic dysfunction (grade 1) mild right ventricular hypertrophy, RVSP elevated at 40-50 mmHg, inferior vena cava is mildy dilated, right ventricle is mildly dilated
--- NOTE | 2018-12-11 11:20 | Gastrointestinal Consultation ---
Date of Consultation December 11, 2018 Assessment & Plan (1) Coffee ground emesis: Patient is an 78 yo female with hematemesis. H/H is within normal limits. Patient has been using NSAIDs. 1) Continue IV Protonix 40 mg BID. 2) Keep NPO for EGD today. 3) Continue to monitor H/H. 4) Avoid NSAIDs. 5) Supportive care per primary team. Thank you for allowing us to participate in the care of this patient. If you should have any further questions, do not hesitate to contact us at [phone] or [phone]. Present on Admission?: Yes Supervising Physician Co-Signing Physician Notes Agree with BRANDON Denise as above Abd: Soft, NT, ND, +BS Continue current therapy Proceed with EGD today. History of Present Illness Reason for Consultation: Coffee ground emesis Attending Physician: Nay Ng DO History of Present Illness Patient is an 78 yo female with a PMH of esophagitis, HTN, HLD, constipation, SVT, & trigeminal neuralgia who is hospitalized for coffee-ground emesis. She r eports that 2 days ago, she developed epigastric abdominal pain that was a burning sensation. She likens it to heartburn and reflux. She reports that she took 1/2 roll of Tums and 1/2 roll of Rolaids. She denies relief from that. She takes a PPI daily due to a distant history of esophagitis in 2011. She reports that she has been taking NSAID therapies. She reports that she has had no further symptoms since her hospitalization. Her H/H is within normal limits. She denies melena. She denies diarrhea or constipation. She is presently on IV PPI therapy. She offers no further complaints. Allergies Allergy/AdvReac Type Severity Reaction Status Date / Time levofloxacin [From Levaquin] Allergy Unknown Unknown Unverified 12/10/18 14:03 Home Medications Home Medications Medication Instructions Recorded Confirmed Type amitriptyline 50 mg PO HS 06/14/18 12/10/18 History ascorbic acid (vitamin C) 1,000 mg PO BID 06/14/18 12/10/18 History aspirin 81 mg PO QAM 06/14/18 12/10/18 History atorvastatin 40 mg PO HS 06/14/18 12/10/18 History cholecalciferol (vitamin D3) 2,000 unit PO QAM 06/14/18 12/10/18 History [Vitamin D3] cyanocobalamin (vitamin B-12) 1,000 mcg PO QAM 06/14/18 12/10/18 History [Vitamin B-12] gabapentin 1,900 mg PO BID 06/14/18 12/10/18 History glatiramer [Copaxone] 20 mg SUBCUT QAM 06/14/18 12/10/18 History lisinopril 20 mg PO QAM 06/14/18 12/10/18 History pantoprazole 40 mg PO QAM 06/14/18 12/10/18 History ibuprofen [Advil] 400 mg PO QID PRN 07/01/18 12/10/18 History prednisone 20 mg PO UD 12/10/18 12/10/18 History Patient History Medical History Urinary retention Constipation Fever Abnormal urinalysis SVT (supraventricular tachycardia) Paraplegia Lymphedema of left leg (Chronic) History of multiple sclerosis (Chronic) Multiple sclerosis Trigeminal neuralgia of left side of face (Resolved) Left-sided weakness (Acute) Family History Other Family history non-contributory Social History Preferred Language: [place]an Communication Ability: Effective Social Work Specialist Required: No Beliefs That Will Affect Care: None Current Living Situation: Alone Current Living Situation Comment: Home Health Other Information That Helps Us Care for You: No Feels Safe at Home: Yes Safety Concerns: Feels Safe At This Time Smoking Status: Former smoker Smoking End Date: 2002 Second Hand Exposure: No Hx Alcohol Use: No Hx Substance Use: No Review of Systems Constitutional: no fever, no chills and no fatigue Eyes: no acute issues Ear, Nose, Mouth, Throat: no acute complaints Respiratory: no cough and no dyspnea Cardiovascular: no chest pain Gastrointestinal: + hematemesis; no abdominal pain, no bloating, no heartburn, no nausea and no vomiting Musculoskeletal: no acute complaints Integumentary: no rash Neurologic: no acute issues Psychiatric: no acute issues Endocrine: no fatigue Hematologic / Lymphatic: no easy bleeding Physical Exam Constitutional: WD/WN, vitals as above Eyes: PERRL, conjunctivae normal, anicteric sclerae ENMT: external ear and nose normal, oropharynx normal Neck: normal visual inspection Respiratory: normal respiratory effort, lungs clear to auscultation Cardiovascular: Rate/Rhythm: regular rate and regular rhythm Gastrointestinal (Abdomen): normal bowel sounds, soft, nontender, no hepatosplenomegaly Musculoskeletal: Head/Neck/Chest: normocephalic and head atraumatic Skin: no rashes, warm and dry Psychiatric: A+Ox3, euthymic affect Results & Data Vital Signs (Past 12 Hours) Vital Signs Temp Pulse Resp BP Pulse Ox 12/11/18 07:50 36.4 C L 53 L 18 117/66 97
[2018-12-11] MEDS: EUCERIN CR 120 GM JAR EXT SCH ×2 (12:19→21:33)
[2018-12-11] MEDS: MUPIROCIN 2% OINT 22 GM TUBE EXT SCH ×2 (15:09→21:33)
[2018-12-11] MEDS ORDERED: LIDOCAINE HCL 2% 2 ML VIAL/AMP(20MG/ML) INFIL ONE (16:28)
[2018-12-11] MEDS ORDERED: PROPOFOL IV EMULSION 10 MG/ML 20 ML VIAL IV ONE (16:28)
--- NOTE | 2018-12-11 16:59 | GI REPORT ---
Patient Name: Joan Mckenzie Procedure Date: 12/11/2018 4:36 PM Date of : 1940 Admit Type: Inpatient Age: 78 Gender: Female Attending MD: Luis Null DO Procedure: Upper GI endoscopy Providers: Luis Null DO Referring MD: Roni Daugherty Indications: Hematemesis Medicines: Monitored Anesthesia Care Complications: No immediate complications. Estimated Blood Loss: Estimated blood loss: none. Procedure: Pre-Anesthesia Assessment: - Prior to the procedure, a History and Physical was performed, and patient medications and allergies were reviewed. The patient's tolerance of previous anesthesia was also reviewed. The risks and benefits of the procedure and the sedation options and risks were discussed with the patient. All questions were answered, and informed consent was obtained. Prior Anticoagulants: The patient has taken aspirin, last dose was 1 day prior to procedure. ASA Grade Assessment: IV - A patient with severe systemic disease that is a constant threat to life. After reviewing the risks and benefits, the patient was deemed in satisfactory condition to undergo the procedure. After obtaining informed consent, the endoscope was passed under direct vision. Throughout the procedure, the patient's blood pressure, pulse, and oxygen saturations were monitored continuously. The Scope was introduced through the mouth, and advanced to the second part of duodenum. The upper GI endoscopy was accomplished without difficulty. The patient tolerated the procedure well. Findings: LA Grade C (one or more mucosal breaks continuous between tops of 2 or more mucosal folds, less than 75% circumference) esophagitis with no bleeding was found 38 cm from the incisors. A small hiatal hernia was present. The examined duodenum was normal. Impression: - LA Grade C reflux esophagitis. - Small hiatal hernia. - Normal examined duodenum. - No specimens collected. Recommendation: - Return patient to [facility] for [facility] care. - Advance diet as tolerated. - Use Protonix (pantoprazole) 40 mg PO BID. Luis Null DO 12/11/2018 4:59:12 PM This report has been signed electronically. Note Initiated On: 12/11/2018 4:36 PM Number of Addenda: 0 I attest to the content of the Intraoperative Record and orders documented therein, exceptions below {[id number]}
--- NOTE | 2018-12-11 17:27 | Anesthesiology Progress Note ---
Date of Service December 11, 2018 Anesthesia Post Procedure Vital Signs Vital Signs: Temp Pulse Pulse Resp BP BP BP 12/11/18 17:25 81 18 123/76 12/11/18 17:10 78 18 140/77 12/11/18 16:55 79 18 138/70 12/11/18 15:35 37.1 C 96 H 18 116/53 L 12/11/18 15:14 36.7 C 111 H 18 111/65 12/11/18 07:50 36.4 C L 53 L 18 117/66 12/10/18 22:46 36.6 C 75 18 134/86 12/10/18 19:18 80 18 117/62 12/10/18 17:56 80 22 119/54 L Pulse Ox 12/11/18 17:25 95 12/11/18 17:10 96 12/11/18 16:55 97 12/11/18 15:35 96 12/11/18 15:14 91 12/11/18 07:50 97 12/10/18 22:46 98 12/10/18 19:18 95 12/10/18 17:56 95 Transfer of Care Handoff Completed per policy Notes Mental Status: alert / awake / arousable Patient Amnestic to Procedure: Yes Nausea / Vomiting: adequately controlled Pain: adequately controlled Airway Patency, RR, SpO2: stable & adequate BP & HR: stable & adequate Hydration State: stable & adequate Anesthetic Complications: no major complications apparent
[2018-12-11 18:39] LABS: Basophils # (auto) 0.04 K/uL (0-0.2); Basophils % (auto) 0.4 %; Eosinophils # (auto) 0.31 K/uL (0-0.5); Eosinophils % (auto) 3.3 %; Hematocrit (blood only) 35.4 % (37-47); Hemoglobin 11.4 g/dL (12.0-16.0); Immature Granulocytes # (auto) 0.04 K/uL (0.00-0.02); Immature Granulocytes % (auto) 0.4 %; Lymphocytes # (auto) 2.41 K/uL (1.2-3.4); Lymphocytes % (auto) 25.5 %; Mean Corpuscular Hgb Conc 32.2 g/dL (32-36); Mean Corpuscular Volume 93.7 fL (80-100); Mean Platelet Volume 9.2 fL (7.4-10.4); Monocytes # (auto) 0.75 K/uL (0.11-0.59); Monocytes % (auto) 7.9 %; Neutrophils # (auto) 5.91 K/uL (1.4-6.5); Neutrophils % (auto) 62.5 %; Platelet Count 331 K/uL (130-400); RDW Coefficient of Variation 13.4 % (11.5-14.5); RDW Standard Deviation 45.8 fL (36.4-46.3); Red Blood Count 3.78 M/uL (4.2-5.4); White Blood Count 9.46 K/uL (4.8-10.8)
--- NOTE | 2018-12-11 19:46 | Hospitalist Progress Note ---
Date of Service December 11, 2018 Assessment & Plan (1) Esophagitis: as seen on EGD today. likely due to GERD and NSAID use. stop asa. stop motrin. increase protonix to 40mg BID. diet as tolerated. H/H stable. cbc in am. (2) Upper GI bleed: 2nd to esophagitis as seen on EGD today. H/H stable. CBC in am. Protonix BID now and at d/c. Stop NSAIDs and asa. (3) Chest pain: Likely due to esophagitis. Doubt cardiac. (4) HTN (hypertension): BPs acceptable at this time. (5) HLD (hyperlipidemia): continue Atorvastatin (6) Multiple sclerosis: Chronic. Stable. with resulting acquired paraplegia -Continue Elavil -Continue Copaxone -Continue Gabapentin (7) Paraplegia: due to MS PT,OT to ensure at baseline function (8) DVT prophylaxis: SCDs son updated by phone today d/c tomorrow if stable h/h Subjective saw the patient pre-EGD no further hematemesis no abd pain feeling good she is paraplegic due to MS has not walked in 6+ months has caregivers 12 hours/day Review of Systems Constitutional: no fever Respiratory: no cough and no dyspnea Cardiovascular: no chest pain Gastrointestinal: no abdominal pain, no belching, no heartburn, no nausea, no vomiting and no coffee ground emesis Physical Exam Constitutional: well developed and well nourished; no acute distress and not ill appearing ENMT: external ear and nose normal, oropharynx normal Respiratory: normal respiratory effort, lungs clear to auscultation Cardiovascular: Rate/Rhythm: regular rate and regular rhythm Heart Sounds: normal S1 and normal S2 Vessels: posterior tibial pulses present and dorsalis pedis pulses present; no JVD Gastrointestinal (Abdomen): normal bowel sounds, soft, nontender, no hepatosplenomegaly Psychiatric: A+Ox3, euthymic affect Results & Data Vital Signs (Past 12 Hours) Vital Signs Temp Pulse Resp BP BP Pulse Ox 12/11/18 17:39 36.6 C 79 18 146/61 H 92 12/11/18 17:25 81 18 123/76 95 12/11/18 17:10 78 18 140/77 96 12/11/18 16:55 79 18 138/70 97 12/11/18 15:35 37.1 C 96 H 18 116/53 L 96 12/11/18 15:14 36.7 C 111 H 18 111/65 91 12/11/18 07:50 36.4 C L 53 L 18 117/66 97 Laboratory Results Laboratory Results - last 24 hr 12/10/18 12/11/18 12/11/18 14:49 05:35 05:35 WBC 11.16 H RBC 3.94 L Hgb 12.3 Hct 36.3 L MCV 92.1 MCH 31.2 MCHC 33.9 RDW Std Deviation 44.7 RDW Coeff of Aparna 13.2 Plt Count 338 MPV 9.2 Immature Gran % (Auto) 0.4 Neut % (Auto) 80.4 Lymph % (Auto) 13.5 [place] % (Auto) 5.1 Eos % (Auto) 0.3 Baso % (Auto) 0.3 Immature Gran # (Auto) 0.05 H Neut # (Auto) 8.97 H Lymph # (Auto) 1.51 [place] # (Auto) 0.57 Eos # (Auto) 0.03 Baso # (Auto) 0.03 Sodium 133 L Potassium 5.2 H Chloride 100 Carbon Dioxide 27 Anion Gap 6.0 BUN 23 H Creatinine 1.05 Est Cr Clr Drug Dosing 54.3 Est GFR ( Amer) 58.1 Est GFR (Non-Af Amer) 50.1 BUN/Creatinine Ratio 22.3 H Glucose 116 H Calcium 9.9 Phosphorus 3.6 Magnesium 2.2 12/11/18 18:25 WBC 9.46 RBC 3.78 L Hgb 11.4 L Hct 35.4 L MCV 93.7 MCH 30.2 MCHC 32.2 RDW Std Deviation 45.8 RDW Coeff of Aparna 13.4 Plt Count 331 MPV 9.2 Immature Gran % (Auto) 0.4 Neut % (Auto) 62.5 Lymph % (Auto) 25.5 [place] % (Auto) 7.9 Eos % (Auto) 3.3 Baso % (Auto) 0.4 Immature Gran # (Auto) 0.04 H Neut # (Auto) 5.91 Lymph # (Auto) 2.41 [place] # (Auto) 0.75 H Eos # (Auto) 0.31 Baso # (Auto) 0.04 Sodium Potassium Chloride Carbon Dioxide Anion Gap BUN Creatinine Est Cr Clr Drug Dosing Est GFR ( Amer) Est GFR (Non-Af Amer) BUN/Creatinine Ratio Glucose Calcium Phosphorus Magnesium (1) HLD (hyperlipidemia) Hyperlipidemia type: unspecified Qualified Code(s): E78.5 - Hyperlipidemia, unspecified (2) Chest pain Chest pain type: unspecified Qualified Code(s): R07.9 - Chest pain, unspecified (3) HTN (hypertension) Hypertension type: essential hypertension Qualified Code(s): I10 - Essential (primary) hypertension
[2018-12-11] MEDS: ATORVASTATIN 40 MG TAB PO SCH (21:33)
[2018-12-11] MEDS: AMITRIPTYLINE HCL 50 MG TAB PO SCH (21:33)
[2018-12-12 08:12] LABS: Hematocrit (blood only) 34.3 % (37-47); Mean Corpuscular Hgb Conc 32.1 g/dL (32-36); Mean Corpuscular Volume 94.8 fL (80-100); Mean Platelet Volume 9.5 fL (7.4-10.4); Platelet Count 320 K/uL (130-400); RDW Coefficient of Variation 13.5 % (11.5-14.5); RDW Standard Deviation 46.8 fL (36.4-46.3); Red Blood Count 3.62 M/uL (4.2-5.4); White Blood Count 8.49 K/uL (4.8-10.8)
[2018-12-12 08:57] LABS: BUN Creatinine Ratio 23.5 (10-20); Calcium 10.2 mg/dl (8.5-10.1); Creatinine Clr Calc Pharmacy 52.8 ml/min; Est GFR (African American) 56.1; Est GFR (Non-African American) 48.4; Potassium 4.4 mmol/L (3.5-5.1)
[2018-12-12] MEDS: EUCERIN CR 120 GM JAR EXT SCH (09:36)
[2018-12-12] MEDS: MUPIROCIN 2% OINT 22 GM TUBE EXT SCH ×2 (09:36→13:00)
[2018-12-12] MEDS: PANTOprazole 40 MG in SYRINGE 0 ML IV SCH (09:36)
[2018-12-12] MEDS: GABAPENTIN 300 MG CAP PO SCH (09:37)
[2018-12-12] MEDS: GABAPENTIN 800 MG TAB PO SCH (09:37)
--- NOTE | 2018-12-12 09:51 | Gastroenterology Progress Note ---
Date of Service December 12, 2018 Assessment & Plan (1) Esophagitis: Patient is an 78 yo female with hematemesis found to have esophagitis on EGD on 12/11/2018. 1) Continue Protonix 40 mg BID. Okay to transition to po. 2) Avoid NSAIDs. 3) Supportive care per primary team. Thank you for allowing us to participate in the care of this patient. If you should have any further questions or concerns, do not hesitate to contact us at [phone] or [phone]. Present on Admission?: Yes Supervising Physician Co-Signing Physician Notes Agree with BRANDON Denise as above Continue current therapy Followup in our office as an outpatient if needed. Subjective Patient is an 78 yo female with hematemesis. She underwent an EGD on 12/11/2018 that indicated esophagitis. The patient denies further episodes of hematemesis. She denies epigastric pain, reflux, nausea, or vomiting. Her H/H is 11/34.3. Review of Systems Constitutional: no fever and no chills Respiratory: no cough and no dyspnea Cardiovascular: no chest pain Gastrointestinal: no abdominal pain, no heartburn, no coffee ground emesis and no dysphagia Physical Exam Constitutional: WD/WN, vitals as above Eyes: PERRL, conjunctivae normal, anicteric sclerae Respiratory: normal respiratory effort, lungs clear to auscultation Cardiovascular: Rate/Rhythm: regular rate Gastrointestinal (Abdomen): normal bowel sounds, soft, nontender, no hepatosplenomegaly Results & Data Vital Signs (Past 12 Hours) Vital Signs Temp Pulse Resp BP Pulse Ox 12/12/18 06:00 36.6 C 74 18 113/67 92 12/11/18 22:47 36.5 C 67 18 111/55 L 93
--- NOTE | 2018-12-12 15:52 | Ultrasound Report ---
US venous doppler LE LT CLINICAL HISTORY: lymphedema Left leg; eval DVT PAIN. EDEMA. COMPARISON STUDY: 06/14/2018 FINDINGS: Real-time and color flow Doppler imaging were performed. Flow was seen within the femoral, popliteal and calf veins with no intraluminal thrombus demonstrated. The saphenous vein is patent. IMPRESSION: No evidence of deep venous thrombosis. The above report was generated using voice recognition software. It may contain grammatical, syntax or spelling errors. Electronically signed by: Richie Barcenas M.D. 12/12/2018 3:50 PM
[2018-12-12] MEDS ORDERED: PANTOprazole 40 MG TAB PO STA (16:14)
--- NOTE | 2018-12-21 21:40 | Discharge Summary ---
Date of Service date of admission - December 10, 2018 date of discharge - December 12, 2018 Admission HPI Per Admitting Provider Joan Mckenzie is a pleasant 78yo C female with history of MS, urinary retention with indwelling [place], prior episode of esophagitis, and acquired paraplegia from her MS presenting with reflux/nausea/vomiting/?coffee ground emesis. Patient states that this AM at 03:00 she woke with severe substernal burning and bitter tasting fluid in her mouth. She subsequently developed severe nausea with two episodes of vomiting dark brown liquid, possibly coffee ground material. She took Rolaids and Tums with minimal relief then drank some baking soda which resolved the symptoms. On arrival to the ER patient afebrile, hemodynamically stable, NAD. Heme negative stools. Symptoms have resolved. She feels well with no additional complaints. She takes ASA 81mg po daily, Prednisone 20mg po daily and occasional Advil - reports taking 3-4 doses of advil in the last few days. Does not drink EtOH. Overall, reflux symptoms have been well managed since the addition of Protonix ER Course: Pepcid IV, Protonix 80mg IV Principal Diagnosis esophagitis Discharge Exam Constitutional well developed and well nourished; no acute distress and not ill appearing ENMT external ear and nose normal, oropharynx normal Respiratory normal respiratory effort, lungs clear to auscultation Cardiovascular Rate/Rhythm: regular rate and regular rhythm Heart Sounds: normal S1 and normal S2 Vessels: posterior tibial pulses present and dorsalis pedis pulses present; no JVD Extremities: + edema (left leg) Gastrointestinal (Abdomen) normal bowel sounds, soft, nontender, no hepatosplenomegaly Skin right great toe - distal tuft - minimal erythema Neurologic paraplegia b/l LEs Psychiatric A+Ox3, euthymic affect Discharge Data Allergies Allergy/AdvReac Type Severity Reaction Status Date / Time levofloxacin [From Levaquin] Allergy Unknown Unknown Unverified 12/10/18 14:03 Consultations gastroenterology - Luis Null DO PT, OT Procedures Performed Operation Date: 12/11/18 10:30 Actual Procedures Esophagogastroduodenoscopy - Luis Cooley Case, DO Impression: - LA Grade C reflux esophagitis. - Small hiatal hernia. - Normal examined duodenum. - No specimens collected. Ordered Studies 1 CT abd pelvis - IMPRESSION: 1. Allowing for noncontrast technique, no acute intra-abdominal pathology in the upper abdomen. However, new infiltrative change in the mesorectal fat along the posterior rectum without accompanying changes of the rectum. This is not specific and proctitis is not favored as the etiology for this finding. Consider rectal exam if appropriate. 2. Diverticulosis coli. No evidence of diverticulitis. 3. Chronic compression fracture of L1. 2. US venous doppler left leg - no DVT. Hospital Course (1) Esophagitis: as seen on EGD. Likely the cause of her coffee-ground emesis. Etiology likely due to GERD and NSAID use. stop asa. stop motrin. increased protonix to 40mg BID. diet as tolerated. H/H stable during the stay with discharge hemoglobin of 11. new prescription for 40mg of BID protonix given. (2) Upper GI bleed: 2nd to esophagitis as seen on EGD. H/H stable. Protonix BID. Stop NSAIDs and asa. Limit alcohol or abstain completely. Limit caffeine. Limit spicy foods, fried foods, etc. (3) Chest pain: Likely due to esophagitis. Doubt cardiac etiology. (4) HTN (hypertension): BPs acceptable during the stay. (5) HLD (hyperlipidemia): continue Atorvastatin (6) Multiple sclerosis: Chronic. Stable. with resulting acquired paraplegia. -Continue Elavil -Continue Copaxone -Continue Gabapentin -Continue prednisone (7) Paraplegia: due to MS PT, OT consults done -- patient at baseline while here Total Time Total Time Spent Total Time Spent (In Minutes): 40 Discharge Plan Discharge Items Patient Disposition: Home - Home Health Services Reason For Visit: COFFEE GROUND EMESIS (vomiting) Discharge Diagnosis: coffee ground vomiting due to severe esophagitis Discharge Goals: Diagnostic testing and Therapeutic intervention Activity: Resume your previous activity Non-emergency contact: Primary Care Provider Call non-emergency contact if: you have any medication questions, your symptoms worsen and your temperature is above 100.5 Follow-up/Referrals: Naun Alvarez III, MD [Primary Care Provider] - 12/16/18 2:15 pm (Please, follow up at Dr. Alvarez's office with Taya Campos on SaturdayDecember 16 at 2:15 pm. *If you need to change this appointment, call the office at [phone].) Diet: Regular Addtl Provider Instructions: From Roni Daugherty - hospitalist: You were admitted for "coffee-ground" vomiting. This is when you vomit dark material which is old blood. Fortunately your blood counts remained stable while hospitalized despite the bleeding. Dr Null performed an upper endoscopy (EGD) and found esophagitis. This is when your esophagus is irritated and inflamed. Common causes of this include severe heartburn/reflux disease, aspirin use, ibuprofen use, etc. At this time we recommend - 1. INCREASE your protonix (pantoprazole) to 40mg twice a day. New prescription sent to [facility] for you. 2. STOP your aspirin for now. 3. DO NOT TAKE any [id number] or prescription ibuprofen, motrin, alleve, naprosyn, etc. 4. Avoid large amounts of caffeinated beverages (coffee, tea, soda) and alcohol. 5. Avoid spicy foods, fried foods, fast foods. 6. Avoid orange juice, red sauces, tomatoes, grapefruit, etc for several weeks. 7. I would stop your vitamin C since it is acidic -- at least for a couple of weeks. Follow-up - see separate section. Please have Dr Alvarez repeat a CBC and BMP at the time of your follow-up visit. Return to [facility] if -- * you have recurrent "coffee-ground" vomiting * you have severe abdominal pain * you have bright red blood in your stools * any other concerns Prescriptions: New mupirocin 2 % Ointment 1 applic EXT BID Qty: 1 RF: 0 Continued amitriptyline 50 mg Tablet 50 mg PO HS RF: 0 atorvastatin 40 mg Tablet 40 mg PO HS RF: 0 cholecalciferol (vitamin D3) [Vitamin D3] 2,000 unit Tablet 2,000 unit PO QAM RF: 0 cyanocobalamin (vitamin B-12) [Vitamin B-12] 1,000 mcg Tablet 1,000 mcg PO QAM RF: 0 gabapentin 600 mg Tablet Extended Release 24 Hr 1,900 mg PO BID RF: 0 glatiramer [Copaxone] 20 mg/mL Syringe 20 mg SUBCUT QAM RF: 0 lisinopril 20 mg Tablet 20 mg PO QAM RF: 0 prednisone 20 mg tablet 20 mg PO UD RF: 0 Changed pantoprazole 40 mg Tablet,Delayed Release (Dr/Ec) 40 mg PO BID Qty: 60 RF: 2 Discontinued ibuprofen [Advil] 200 mg Tablet 400 mg PO QID PRN (Reason: Pain) RF: 0 ascorbic acid (vitamin C) 1,000 mg Tablet Extended Release 1,000 mg PO BID RF: 0 aspirin 81 mg Tablet,Delayed Release (Dr/Ec) 81 mg PO QAM RF: 0 Stand-Alone Forms: [facility] Discharge Orders: Discharge Order (Routine); Ordered 12/12/18 Ordered By: Roni Daugherty Admission Data Admit Date/Time: 12/10/18 17:47 Attending Provider: Roni Daugherty Admit Provider: Nay Ng Primary Care Provider: Naun Alvarez III Other Providers: Luis Null Service: Medical Other Interventions: Discharge Summary Assessment (RN) Last Done: 12/12/18 16:54 Pending Studies at Discharge: No DC Date/Time DO NOT enter until pt leaves facility: 12/12/18 19:24
== END 2018-12-12 19:24 | disposition home health service (06) | DRG 377 ==
LOC: ED 13:37 → SUATTDRO 17:47 → 4W 17:47
DX: L89.313 Pressure ulcer of right buttock, stage 3; R60.0 Localized edema; I10 Essential (primary) hypertension; R33.9 Retention of urine, unspecified; Z79.82 Long term (current) use of aspirin; Z66 Do not resuscitate; K92.2 Gastrointestinal hemorrhage, unspecified; Z79.52 Long term (current) use of systemic steroids; Z79.899 Other long term (current) drug therapy; E78.5 Hyperlipidemia, unspecified; G35 Multiple sclerosis; K21.0 Gastro-esophageal reflux disease with esophagitis

== ENCOUNTER 2018-12-31 03:03 | Inpatient (IN) ==
[2018-12-31] MEDS ORDERED: SODIUM CHLORIDE 0.9% 500 ML IV SCH (03:30)
[2018-12-31] MEDS ORDERED: SODIUM CHLORIDE 0.9% 1000ML 1,000 ML IV SCH (03:45)
--- NOTE | 2018-12-31 04:00 | Emergency Department Note ---
Entered by Tami Cueva acting as a scribe for Niesha Nevarez MD History of Present Illness General Chief complaint: Sore Throat Source: patient History of Present Illness Provider complaint: burningin throat Onset (ago): hour(s) less than 1 Location: head Pain Consistency: + intermittent Maximum Pain Intensity: 5 Quality: + burning Relieved By: + none Exacerbated By: + none Associated symptoms: + denies other symptoms; no nausea/vomiting The patient is an 78 y/o female who presents to the emergency department for evaluation of intermittent burning pain in her throat that began this evening prior to arrival. The patient states that she has had this pain in the past for which she had an upper endoscopy last week. The patient states that she has chronically low blood pressure as well. She notes she lives at home and has care givers during the day, but is alone at night despite being bed ridden due to her MS. The patient does have a Gamboa catheter in place as well. The patient states she has been eating and drinking normally. She denies any chest burning, vomiting, and any other symptoms. Home Medications Home Medications Medication Instructions Recorded Confirmed Type amitriptyline 50 mg PO HS 06/14/18 12/31/18 History atorvastatin 40 mg PO HS 06/14/18 12/31/18 History cholecalciferol (vitamin D3) 2,000 unit PO QAM 06/14/18 12/31/18 History [Vitamin D3] cyanocobalamin (vitamin B-12) 1,000 mcg PO QAM 06/14/18 12/31/18 History [Vitamin B-12] gabapentin 1,900 mg PO BID 06/14/18 12/31/18 History glatiramer [Copaxone] 20 mg SUBCUT QAM 06/14/18 12/31/18 History lisinopril 20 mg PO QAM 06/14/18 12/31/18 History pantoprazole 40 mg PO BID #60 tab 12/12/18 12/31/18 Rx tramadol 50 mg tablet 50 mg PO Q6H #30 tab 12/25/18 12/31/18 Rx Allergies Allergy/AdvReac Type Severity Reaction Status Date / Time levofloxacin [From Levaquin] Allergy Unknown Unknown Unverified 12/31/18 03:29 Past Med/Surg History Medical History Urinary retention Constipation Fever Abnormal urinalysis SVT (supraventricular tachycardia) Paraplegia Lymphedema of left leg (Chronic) History of multiple sclerosis (Chronic) Multiple sclerosis Trigeminal neuralgia of left side of face (Resolved) Left-sided weakness (Acute) Family History Other Family history non-contributory Social History Preferred Language: [place] Communication Ability: Effective Retrieval Specialist Required: No Beliefs That Will Affect Care: None Current Living Situation: Alone Current Living Situation Comment: Home Health Other Information That Helps Us Care for You: No Feels Safe at Home: Yes Safety Concerns: Feels Safe At This Time Smoking Status: Unknown if ever smoked Hx Alcohol Use: No Hx Substance Use: No Review of Systems See HPI for pertinent positives & negatives. and A total of 10 systems reviewed and were otherwise negative Physical Exam Vital Signs Vital Signs - 24 hr 12/31/18 03:08 12/31/18 03:11 12/31/18 03:14 Temperature 37.1 C Temperature Source Oral Sepsis Recent Fever Within 48 Hours No Sepsis New/Unexplained Change in Mental Status No Sepsis Action Taken by Nursing No Action Required Pulse Rate 134 H 100 H 91 H Pulse Rate from SpO2 Sensor 92 H 91 H Pulse Rhythm Regular Pulse Strength Normal Respiratory Rate 25 H 29 H 18 Respiratory Effort / Characteristics Non-Labored Respiratory Depth Normal Respiratory Pattern Regular Blood Pressure 81/36 L 81/36 L Blood Pressure Mean 51 51 Blood Pressure Position Sitting Pulse Oximetry 94 92 95 Oxygen Delivery Method Room Air 12/31/18 03:30 12/31/18 03:32 12/31/18 03:33 Temperature Temperature Source Sepsis Recent Fever Within 48 Hours Sepsis New/Unexplained Change in Mental Status Sepsis Action Taken by Nursing Pulse Rate 89 88 86 Pulse Rate from SpO2 Sensor Pulse Rhythm Pulse Strength Respiratory Rate 20 18 20 Respiratory Effort / Characteristics Respiratory Depth Respiratory Pattern Blood Pressure 87/57 L Blood Pressure Mean 101 67 Blood Pressure Position Pulse Oximetry Oxygen Delivery Method 12/31/18 04:00 12/31/18 04:02 12/31/18 04:23 Temperature Temperature Source Sepsis Recent Fever Within 48 Hours Sepsis New/Unexplained Change in Mental Status Sepsis Action Taken by Nursing Pulse Rate 106 H 93 H 90 Pulse Rate from SpO2 Sensor Pulse Rhythm Regular Pulse Strength Respiratory Rate 20 20 18 Respiratory Effort / Characteristics Respiratory Depth Respiratory Pattern Blood Pressure 93/30 L Blood Pressure Mean 51 Blood Pressure Position Pulse Oximetry 95 Oxygen Delivery Method Room Air 12/31/18 04:30 Temperature Temperature Source Sepsis Recent Fever Within 48 Hours Sepsis New/Unexplained Change in Mental Status Sepsis Action Taken by Nursing Pulse Rate 92 H Pulse Rate from SpO2 Sensor 92 H Pulse Rhythm Pulse Strength Respiratory Rate 12 Respiratory Effort / Characteristics Respiratory Depth Respiratory Pattern Blood Pressure Blood Pressure Mean Blood Pressure Position Pulse Oximetry 97 Oxygen Delivery Method Vital signs reviewed. General: Chronically ill appearing. Obese, in no distress. Known to be hypotensive HEENT: No scleral icterus, PERRLA, neck supple. Atraumatic. Moist mucous membrane, posterior oropharynx is clear. Cardiovascular: Regular rate and rhythm, no extra sounds. Pulmonary: Clear to auscultation bilaterally, normal work of breathing. Abdomen: Soft, nontender, nondistended, positive bowel sounds. Musculoskeletal: Atraumatic, no peripheral edema. Neurologic: Patient awake alert and answering questions appropriately. Equal movement of the bilateral upper extremities with paraplegia. Lower extremity: Chronic atrophy of bilateral lower extremity, with ecchymotic changes of the first and second toe on the left foot. Skin: Warm, dry, no rash Course 0329: The patient was evaluated in room A11B. A complete history and physical exam was performed. 0426: the patient is hypotensive and has a lactate of 3.4. 0429: I checked on the patient, she is resting. 0446: I spoke with Dr. Contreras- [facility] [place] [facility]. He will evaluate for further management. Administered Medications Discontinued Medications Ranitidine HCl 50 mg/ Dextrose 102 mls @ 200 mls/hr IV NOW STA Stop: 12/31/18 04:03 Last Infusion: 12/31/18 04:33 Dose: 0 mls/hr Documented by: [id number] Admin: 12/31/18 03:55 Dose: 200 mls/hr Documented by: [id number] Sodium Chloride (Nss) 500 mls @ 999 mls/hr IV .Q31M JAVID Stop: 12/31/18 04:00 Last Infusion: 12/31/18 04:32 Dose: 0 mls/hr Documented by: [id number] Admin: 12/31/18 03:55 Dose: 999 mls/hr Documented by: [id number] Sodium Chloride (Nss 1000ml) 1,000 mls @ 150 mls/hr IV .Q6H40M JAVID Stop: 01/30/19 03:44 Last Admin: 12/31/18 05:13 Dose: 150 mls/hr Documented by: [id number] Sodium Chloride (Nss 1000ml) 500 mls @ 999 mls/hr IV .Q31M ONE Stop: 12/31/18 04:56 Last Infusion: 12/31/18 05:04 Dose: 0 mls/hr Documented by: [id number] Admin: 12/31/18 04:32 Dose: 999 mls/hr Documented by: [id number] Piperacillin Sod/Tazobactam Sod (Zosyn) 4.5 gm in 120 mls @ 240 mls/hr IV NOW ONE Stop: 12/31/18 04:57 Last Infusion: 12/31/18 05:23 Dose: 0 mls/hr Documented by: [id number] Admin: 12/31/18 04:51 Dose: 240 mls/hr Documented by: [id number] Medical Decision Making Differential Diagnosis Differential diagnosis of this patient's presentation includes viral pharyngitis, GERD, tonsillitis, retropharyngeal abscess, allergic postnasal drip, strep pharyngitis. Medical Records Attestation: I reviewed the patient's medical records. Home Medications Current Medication List: was personally reviewed by me Laboratory Data Attestation: I reviewed the patient's lab results. Result diagrams: 12/31/18 03:51 12/31/18 03:51 Lab Results 12/31/18 12/31/18 12/31/18 Range/Units 03:51 03:51 03:51 WBC 15.23 H (4.8-10.8) K/uL RBC 4.26 (4.2-5.4) M/uL Hgb 13.1 (12.0-16.0) g/dL Hct 39.9 (37-47) % MCV 93.7 (80-100) fL MCH 30.8 (25-34) pg MCHC 32.8 (32-36) g/dL RDW Std Deviation 44.8 (36.4-46.3) fL RDW Coeff of Aparna 13.1 (11.5-14.5) % Plt Count 311 (130-400) K/uL MPV 9.9 (7.4-10.4) fL Immature Gran % (Auto) 0.4 % Neut % (Auto) 79.9 % Lymph % (Auto) 11.6 % [place] % (Auto) 4.8 % Eos % (Auto) 3.0 % Baso % (Auto) 0.3 % Immature Gran # (Auto) 0.06 H (0.00-0.02) K/uL Neut # (Auto) 12.17 H (1.4-6.5) K/uL Lymph # (Auto) 1.77 (1.2-3.4) K/uL [place] # (Auto) 0.73 H (0.11-0.59) K/uL Eos # (Auto) 0.46 (0-0.5) K/uL Baso # (Auto) 0.04 (0-0.2) K/uL Sodium 132 L (136-145) mmol/L Potassium 4.6 (3.5-5.1) mmol/L Chloride 96 L (98-107) mmol/L Carbon Dioxide 27 (21-32) mmol/L Anion Gap 9.0 (3-11) BUN 33 H (7-18) mg/dl Creatinine 1.44 H (0.6-1.2) mg/dl Est Cr Clr Drug Dosing 40.0 ml/min Est GFR ( Amer) 39.7 Est GFR (Non-Af Amer) 34.2 BUN/Creatinine Ratio 22.7 H (10-20) Glucose 158 H (70-99) mg/dl Lactate 3.4 H* (0.4-2.0) mmol/L Calcium 10.0 (8.5-10.1) mg/dl Magnesium 2.2 (1.8-2.4) mg/dl Total Bilirubin 0.3 (0.2-1) mg/dl AST 20 (15-37) U/L ALT 23 (12-78) U/L Alkaline Phosphatase 119 H (45-117) U/L Troponin I < 0.015 (0-0.045) ng/ml Total Protein 7.8 (6.4-8.2) gm/dl Albumin 3.7 (3.4-5.0) gm/dl Globulin 4.1 H (2.5-4.0) gm/dl Albumin/Globulin Ratio 0.9 (0.9-2) TSH 2.070 (0.300-4.500) uIu/ml Imaging Data Attestation: I personally reviewed and interpreted this imaging study as follows: My Impression: Chest x-ray showed a likely hiatal hernia, no focal lung consolidation and no lung failure. Blood Pressure Blood Pressure Findings: Low blood pressure Blood Pressure Disposition: further management by hospitalist MDM Narrative This patient was evaluated and appeared to be in no significant distress. IV access was obtained and laboratory work was drawn. Patient was placed on the satellite project site monitor found to be in a normal sinus rhythm. Patient is found to be hypotensive. Blood cultures and lactate were ordered. IV hydration 500 mL normal saline solution bolus x2 was administered. Patient was then continued at 150 mL's per hour. Patient's WBC is elevated as well as the lactate at 3.4. Patient has a chronic indwelling Gamboa catheter and a UA was sent. Based on previous urine culture results, IV Zosyn was administered. Patient's blood pressure has responded somewhat to the IV hydration. She has no complaints at this time. She was discussed with Dr. Serrano of the hospitalist service will evaluate the patient for further management. Patient is aware of the plan and agrees. Impression & Plan Sepsis, History of multiple sclerosis, UTI (urinary tract infection) Discharge Plan Visit Data *Final* Discharge Date/Time: 12/31/18 05:46 Chief Complaint: Sore Throat ED Provider: Niesha Nevarez Discharge Problem: Sepsis, History of multiple sclerosis, UTI (urinary tract infection) Patient Disposition: Admitted As Inpatient Discharge Instructions Interventions: ED Discharge Assessment Last Done: 12/31/18 05:46 The scribe's documentation has been prepared under my direction and personally reviewed by me in its entirety. I confirm that the note above accurately reflects all work, treatment, procedures, and medical decision making performed by me.
[2018-12-31 04:01] LABS: Basophils # (auto) 0.04 K/uL (0-0.2); Basophils % (auto) 0.3 %; Eosinophils # (auto) 0.46 K/uL (0-0.5); Hematocrit (blood only) 39.9 % (37-47); Hemoglobin 13.1 g/dL (12.0-16.0); Immature Granulocytes # (auto) 0.06 K/uL (0.00-0.02); Immature Granulocytes % (auto) 0.4 %; Lymphocytes # (auto) 1.77 K/uL (1.2-3.4); Lymphocytes % (auto) 11.6 %; Mean Corpuscular Hgb Conc 32.8 g/dL (32-36); Mean Corpuscular Volume 93.7 fL (80-100); Mean Platelet Volume 9.9 fL (7.4-10.4); Monocytes # (auto) 0.73 K/uL (0.11-0.59); Monocytes % (auto) 4.8 %; Neutrophils # (auto) 12.17 K/uL (1.4-6.5); Neutrophils % (auto) 79.9 %; Platelet Count 311 K/uL (130-400); RDW Coefficient of Variation 13.1 % (11.5-14.5); RDW Standard Deviation 44.8 fL (36.4-46.3); Red Blood Count 4.26 M/uL (4.2-5.4); White Blood Count 15.23 K/uL (4.8-10.8)
[2018-12-31 04:19] LABS: Alanine Aminotransferase 23 U/L (12-78); Albumin Level 3.7 gm/dl (3.4-5.0); Aspartate Aminotransferase 20 U/L (15-37); BUN Creatinine Ratio 22.7 (10-20); Blood Urea Nitrogen 33 mg/dl (7-18); Carbon Dioxide 27 mmol/L (21-32); Chloride 96 mmol/L (98-107); Est GFR (African American) 39.7; Est GFR (Non-African American) 34.2; Glucose 158 mg/dl (70-99); Magnesium 2.2 mg/dl (1.8-2.4); Potassium 4.6 mmol/L (3.5-5.1); Sodium 132 mmol/L (136-145)
[2018-12-31] MEDS ORDERED: SODIUM CHLORIDE 0.9% 1000ML 500 ML IV ONE (04:26)
[2018-12-31] MEDS ORDERED: PIPERACILL/TAZOBAC CONSULT ACTIVE PRN (04:28)
[2018-12-31] MEDS ORDERED: PIPERACILLIN/TAZOBACTAM 4.5 GM/120 ML BAG IV ONE (04:28)
[2018-12-31 04:30] LABS: Albumin Globulin Ratio 0.9 (0.9-2); Alkaline Phosphatase 119 U/L (45-117); Bilirubin,Total 0.3 mg/dl (0.2-1); Globulin 4.1 gm/dl (2.5-4.0); Total Protein 7.8 gm/dl (6.4-8.2); Troponin I < 0.015 ng/ml (0-0.045)
[2018-12-31] MEDS ORDERED: PANTOprazole 40 MG in SYRINGE 0 ML IV STA (05:33)
[2018-12-31] MEDS ORDERED: PANTOprazole 80 MG in DEXTROSE 5% 100 ML IV STA (05:36)
[2018-12-31 05:42] LABS: Appearance Urine Cloudy (Clear); Bacteria Urine Automated 4+ (Negative); Bilirubin Urine Negative (Negative); Blood Urine 2+ (Negative); Color Urine Yellow; Glucose Urine UA Negative (Negative); Ketones Urine Negative (Negative); Leukocyte Esterase Urine 3+ (Negative); Nitrite Urine Positive (Negative); RBC Urine Automated >30 /hpf (0-4); Specific Gravity Urine 1.015 (1.000-1.030); Urobilinogen Urine Negative (Negative); WBC Urine Automated >30 /hpf (0-5)
--- NOTE | 2018-12-31 05:45 | History & Physical Report ---
Date of Service December 31, 2018 Assessment & Plan (1) Hypotension: Blood pressure upon presentation was 81/36. She is responding somewhat to a fluid bolus, with increased to 87/57, then 93/30. Admits to the telemetry unit for close blood pressure monitoring. Continue with IV fluid rehydration. Hold antihypertensives. Follow H&H serially for potential development of anemia. Present on Admission?: Yes (2) [place] grade C esophagitis: Recurrent symptoms of severe midepigastric and substernal burning- NPO Receiving 1 L of normal saline in ED. Continue NSS at 150 mils per hour. Serial H&H's. Begin pantoprazole 40 mg IV in the ED, and continue daily. Famotidine 20 mg IV every 12 hours. Consult her farmer tree fruit and nut crops Dr. Null Present on Admission?: Yes (3) Multiple sclerosis: Multiple sclerosis/paraplegia- Continue Copaxone 20 mg subcu every morning Present on Admission?: Yes (4) Paraplegia: MS/paraplegia- Continue Copaxone 20 mg subcu every morning. Present on Admission?: Yes (5) HTN (hypertension): Hold lisinopril 20 mg every morning due to hypotension. Present on Admission?: Yes (6) HLD (hyperlipidemia): Hold atorvastatin n.p.o. state Present on Admission?: Yes (7) Vitamin B12 deficiency: Hold oral B12 supplement for now. Present on Admission?: Yes History of Present Illness Chief Complaint: The patient presents to the emergency department with complaint of the sudden onset of severe esophageal pain last evening, similar to her presentation when she was admitted from 12/10-12/13/2018. Primary Care Provider: Naun Alvarez MD The patient is a 78-year-old female most recently admitted from 12/10-12/13 for severe esophageal pain, and was diagnosed with grade C esophagitis secondary to NSAID use. NSAIDs were discontinued, and patient was discharged on pantoprazole 40 mg p.o. twice daily. She was also advised to limit alcohol, caffeine, spicy foods and fried foods. She reports that she has been compliant with taking her medications and diet, and has been doing well since her discharge on 12/13, until last evening, when her symptoms recurred similarly to before. Allergies Allergy/AdvReac Type Severity Reaction Status Date / Time levofloxacin [From Levaquin] Allergy Unknown Unknown Unverified 12/31/18 03:29 Home Medications Home Medications Medication Instructions Recorded Confirmed Type amitriptyline 50 mg PO HS 06/14/18 12/31/18 History atorvastatin 40 mg PO HS 06/14/18 12/31/18 History cholecalciferol (vitamin D3) 2,000 unit PO QAM 06/14/18 12/31/18 History [Vitamin D3] cyanocobalamin (vitamin B-12) 1,000 mcg PO QAM 06/14/18 12/31/18 History [Vitamin B-12] gabapentin 1,900 mg PO BID 06/14/18 12/31/18 History glatiramer [Copaxone] 20 mg SUBCUT QAM 06/14/18 12/31/18 History lisinopril 20 mg PO QAM 06/14/18 12/31/18 History pantoprazole 40 mg PO BID #60 tab 12/12/18 12/31/18 Rx tramadol 50 mg tablet 50 mg PO Q6H #30 tab 12/25/18 12/31/18 Rx Past Med/Surg History Medical History Urinary retention Constipation Fever Abnormal urinalysis SVT (supraventricular tachycardia) Paraplegia Lymphedema of left leg (Chronic) History of multiple sclerosis (Chronic) Multiple sclerosis Trigeminal neuralgia of left side of face (Resolved) Left-sided weakness (Acute) Family History Other Family history non-contributory Social History Preferred Language: Dutch Communication Ability: Effective Beliefs That Will Affect Care: None Current Living Situation: Alone Current Living Situation Comment: Home Health Feels Safe at Home: Yes Smoking Status: Unknown if ever smoked Hx Alcohol Use: No Hx Substance Use: No Review of Systems Review of Systems: The patient denies chest pain, palpitations, shortness of breath, dyspnea on exertion, cough, lower extremity swelling, sore throat, fevers, chills, sweats, weight change, vomiting, diarrhea , constipation, pelvic pain, blood in urine or stool, dysuria, urinary frequency or urgency, lightheadedness, dizziness, headache, memory loss, loss of consciousness, rash, imbalance, focal or generalized weakness, numbness or tingling in arms or legs, generalized arthralgias or myalgias, back or neck pain, or night sweats. The review of systems is otherwise negative other than for that already noted above, and at least 10 systems have been reviewed. Physical Exam Physical Exam: The patient is awake, alert and oriented 3, well developed and well nourished, normocephalic and atraumatic, lying in bed and in no acute distress. HEENT--PERRL, EOMI, mucous membranes and oropharynx normal. Neck--supple. No JVD. No bruits. Thyroid normal, trachea midline, no adenopathy. Heart--normal S1 and S2. No murmurs, rubs or gallops. Lungs--clear bilaterally, no respiratory distress, no accessory muscle use. Abdomen--normal bowel sounds and soft. Nontender. Nondistended. Obese. Extremities--no cyanosis or clubbing. No edema. There are good distal pulses b/l. Dermatologic--normal skin turgor, normal color, no abnormal lymph nodes, no rash. Neurologic--cranial nerves II through XII grossly intact. Rheumatologic--normal range of motion. Psychiatric--normal affect. Results & Data Vital Signs (Past 12 Hours) Vital Signs Temp Pulse Resp BP Pulse Ox 12/31/18 04:30 92 H 12 97 12/31/18 04:23 90 18 95 12/31/18 04:02 93 H 20 93/30 L 12/31/18 04:00 106 H 20 12/31/18 03:33 86 20 12/31/18 03:32 88 18 87/57 L 12/31/18 03:30 89 20 12/31/18 03:14 98.8 F 91 H 18 81/36 L 95 12/31/18 03:11 100 H 29 H 92 12/31/18 03:08 134 H 25 H 81/36 L 94 Laboratory Results Laboratory Results WBC 15.23 K/uL (4.8-10.8) H 12/31/18 03:51 RBC 4.26 M/uL (4.2-5.4) 12/31/18 03:51 Hgb 13.1 g/dL (12.0-16.0) 12/31/18 03:51 Hct 39.9 % (37-47) 12/31/18 03:51 MCV 93.7 fL (80-100) 12/31/18 03:51 MCH 30.8 pg (25-34) 12/31/18 03:51 MCHC 32.8 g/dL (32-36) 12/31/18 03:51 RDW Std Deviation 44.8 fL (36.4-46.3) 12/31/18 03:51 RDW Coeff of Aparna 13.1 % (11.5-14.5) 12/31/18 03:51 Plt Count 311 K/uL (130-400) 12/31/18 03:51 MPV 9.9 fL (7.4-10.4) 12/31/18 03:51 Immature Gran % (Auto) 0.4 % 12/31/18 03:51 Neut % (Auto) 79.9 % 12/31/18 03:51 Lymph % (Auto) 11.6 % 12/31/18 03:51 [place] % (Auto) 4.8 % 12/31/18 03:51 Eos % (Auto) 3.0 % 12/31/18 03:51 Baso % (Auto) 0.3 % 12/31/18 03:51 Immature Gran # (Auto) 0.06 K/uL (0.00-0.02) H 12/31/18 03:51 Neut # (Auto) 12.17 K/uL (1.4-6.5) H 12/31/18 03:51 Lymph # (Auto) 1.77 K/uL (1.2-3.4) 12/31/18 03:51 [place] # (Auto) 0.73 K/uL (0.11-0.59) H 12/31/18 03:51 Eos # (Auto) 0.46 K/uL (0-0.5) 12/31/18 03:51 Baso # (Auto) 0.04 K/uL (0-0.2) 12/31/18 03:51 Sodium 132 mmol/L (136-145) L 12/31/18 03:51 Potassium 4.6 mmol/L (3.5-5.1) 12/31/18 03:51 Chloride 96 mmol/L (98-107) L 12/31/18 03:51 Carbon Dioxide 27 mmol/L (21-32) 12/31/18 03:51 Anion Gap 9.0 (3-11) 12/31/18 03:51 BUN 33 mg/dl (7-18) H 12/31/18 03:51 Creatinine 1.44 mg/dl (0.6-1.2) H 12/31/18 03:51 Est Cr Clr Drug Dosing 40.0 ml/min 12/31/18 03:51 Est GFR ( Amer) 39.7 12/31/18 03:51 Est GFR (Non-Af Amer) 34.2 12/31/18 03:51 BUN/Creatinine Ratio 22.7 (10-20) H 12/31/18 03:51 Glucose 158 mg/dl (70-99) H 12/31/18 03:51 Lactate 3.4 mmol/L (0.4-2.0) H* 12/31/18 03:51 Calcium 10.0 mg/dl (8.5-10.1) 12/31/18 03:51 Magnesium 2.2 mg/dl (1.8-2.4) 12/31/18 03:51 Total Bilirubin 0.3 mg/dl (0.2-1) 12/31/18 03:51 AST 20 U/L (15-37) 12/31/18 03:51 ALT 23 U/L (12-78) 12/31/18 03:51 Alkaline Phosphatase 119 U/L (45-117) H 12/31/18 03:51 Troponin I < 0.015 ng/ml (0-0.045) 12/31/18 03:51 Total Protein 7.8 gm/dl (6.4-8.2) 12/31/18 03:51 Albumin 3.7 gm/dl (3.4-5.0) 12/31/18 03:51 Globulin 4.1 gm/dl (2.5-4.0) H 12/31/18 03:51 Albumin/Globulin Ratio 0.9 (0.9-2) 12/31/18 03:51 TSH 2.070 uIu/ml (0.300-4.500) 12/31/18 03:51 Code Status & VTE Plan Code Status Full code VTE Prophylaxis Plan VTE Prophylaxis will be ordered: Yes (1) HTN (hypertension) Hypertension type: essential hypertension Qualified Code(s): I10 - Essential (primary) hypertension (2) HLD (hyperlipidemia) Hyperlipidemia type: unspecified Qualified Code(s): E78.5 - Hyperlipidemia, unspecified
[2018-12-31 06:21] LABS: Protein Urine 1+ (Negative)
[2018-12-31] MEDS ORDERED: cefTRIAXone SODIUM 1,000 MG/50 ML BAG IV STA (06:21)
[2018-12-31] MEDS ORDERED: FAMOTIDINE 20 MG in SYRINGE 3 ML IV SCH (06:21)
[2018-12-31 06:43] LABS: Hematocrit (blood only) 36.7 % (37-47); Hemoglobin 12.1 g/dL (12.0-16.0)
--- NOTE | 2018-12-31 07:11 | XRay Report ---
XR chest 1V portable CLINICAL HISTORY: Weakness. COMPARISON STUDY: Chest radiograph December 10, 2018. FINDINGS: Patient is rotated. Cardiomediastinal silhouette is stable. Mild left basilar opacity favor s atelectasis. There is no pneumothorax or pleural effusion. There is no evidence for pulmonary edema . Mild cardiomegaly is unchanged. IMPRESSION: 1. No acute cardiopulmonary findings. 2. Low lung volumes. Mild left basilar opacity which favors atelectasis. Electronically signed by: Naga Genao M.D. 12/31/2018 7:09 AM
[2018-12-31] MEDS: cefTRIAXone SODIUM 2,000 MG in DEXTROSE 5% 50 ML IV SCH (07:48)
[2018-12-31] MEDS: FAMOTIDINE 20 MG in SYRINGE 3 ML IV SCH ×2 (07:48→17:44)
[2018-12-31] MEDS: SODIUM CHLORIDE 0.9% 1000ML 1,000 ML IV SCH ×3 (07:48→23:40)
[2018-12-31] MEDS: PANTOprazole 40 MG in DEXTROSE 5% 100 ML IV SCH ×4 (08:09→20:28)
--- NOTE | 2018-12-31 08:27 | Hospitalist Progress Note ---
Date of Service December 31, 2018 Assessment & Plan (1) Hypotension: sepsis on presentation responded to volume resusitation, suspect griffiths cath associated uti poa was given zosyn but continues on ceftriaxone, previous ESBL and enterococcus Hold antihypertensives. Follow H&H serially for potential development of anemia. (2) [place] grade C esophagitis: Recurrent symptoms of severe midepigastric and substernal burning- NPO Receiving 1 L of normal saline in ED. Continue NSS at 150 mils per hour. Serial H&H's. Begin pantoprazole 40 mg IV in the ED, and continue daily. Famotidine 20 mg IV every 12 hours. Consult her top stop attacher Dr. Null (3) Multiple sclerosis: Multiple sclerosis/paraplegia- Continue Copaxone 20 mg subcu every morning (4) Paraplegia: MS/paraplegia- Continue Copaxone 20 mg subcu every morning. (5) HTN (hypertension): Hold lisinopril 20 mg every morning due to hypotension. (6) HLD (hyperlipidemia): Hold atorvastatin n.p.o. state (7) Vitamin B12 deficiency: Hold oral B12 supplement for now. Subjective Is deftly feeling better when she presented. She had sepsis from urinary tract infection present on admission but some vomiting but gastrology feels we should stay the course and continue to treat her as prescribed with a PPI and H2 michelle and Carafate Review of Systems Review of Systems: ROS: Patient is chronically ill and weak and tired No double vision blurry vision No problems with speech or swallowing No palpitations, chest pain or pressure No Wheezing or breathing issues No abdominal pain nausea vomiting diarrhea only mild reflux symptoms Patient is a chronic indwelling Griffiths and she states her aids said the quality of her ureter changed last week No focal joint pain or muscle pain No skin rashes or oral lesions No unusual bruising or bleeding No focused back pain she is persistent loss of strength to her multiple sclerosis No changes in memory or confusion Physical Exam Physical Exam: The patient appeared chronically ill Vital signs as documented. Head exam is unremarkable. normocephalic, atraumatic Neck is without jugular venous distension, thyromegaly, or lymphademopathy Lungs are clear but diminished at the bases Cardiac exam reveals Rhythm is regular. Stock ejection murmurs present Abdominal exam reveals normal bowel sounds, no masses, no organomegaly Extremities are nonedematous and both pedal pulses are present Neurologic exam is A&Ox3, persistent deficits of weakness are seen bilaterally Psychologically seems depressed Results & Data Vital Signs (Past 12 Hours) Vital Signs Temp Pulse Pulse Resp BP BP Pulse Ox 12/31/18 07:32 36.8 C 84 18 113/74 95 12/31/18 06:22 37 C 81 18 98/65 L 95 12/31/18 05:46 85 18 157/77 H 96 12/31/18 04:30 92 H 12 97 12/31/18 04:23 90 18 95 12/31/18 04:02 93 H 20 93/30 L 12/31/18 04:00 106 H 20 12/31/18 03:33 86 20 12/31/18 03:32 88 18 87/57 L 12/31/18 03:30 89 20 12/31/18 03:14 37.1 C 91 H 18 81/36 L 95 12/31/18 03:11 100 H 29 H 92 12/31/18 03:08 134 H 25 H 81/36 L 94 (1) HLD (hyperlipidemia) Hyperlipidemia type: unspecified Qualified Code(s): E78.5 - Hyperlipidemia, unspecified (2) HTN (hypertension) Hypertension type: essential hypertension Qualified Code(s): I10 - Essential (primary) hypertension
--- NOTE | 2018-12-31 09:25 | Gastrointestinal Consultation ---
Date of Consultation December 31, 2018 Assessment & Plan (1) Esophagitis: Patient is an 78 yo female with UTI sepsis. GI has been consulted for [place] grade C esophagitis identified on recent EGD on 12/11. Symptoms of epigastric/esophageal burning returned after an episode of nausea & vomiting yesterday. 1) Protonix 40 mg BID. Take 30 minutes prior to breakfast and dinner. 2) Continue Famotidine 20 mg IV q 12. 3) Carafate 1 gm four times daily before meals and at bedtime x 10 days. 4) Avoid NSAIDs. 5) No indication for repeat endoscopic intervention at present. 6) Advance diet as tolerated. 7) Repeat lactic acid as this was elevated upon admission. 8) Supportive care and treatment of UTI sepsis per primary team. Supervising Physician Co-Signing Physician Notes Agree with BRANDON Denise as above Abd: Soft, NT, ND, +BS Continue current therapy (Twice daily PPI and H2RA) No plans for invasive testing at this time. Advance diet as tolerated History of Present Illness Attending Physician: John Dover MD History of Present Illness Patient is an 78 yo female with a past medical history of hypertension, MS, paraplegia, HLD, & vitamin B12 deficiency who presented to the hospital with hypotension & sepsis 2/2 UTI. She was recently admitted on 12/10-12/13 during which time she had an EGD that indicated [place] grade C esophagitis felt to be due to NSAID use. She was discharged on Protonix 40 mg BID. She reports compliance with her PPI since discharge. She reports she was feeling well until yesterday when she developed dizziness, nausea, & vomiting. After the vomiting, she noted that she had epigastric pain. Upon presentation to the ER her BP was noted to be 81/36. Her UA was grossly abnormal. Lactic acid was 3.4. Troponin was within normal limits. CXR indicated atelectasis. Blood & urine cultures are pending. BUN/Cr 33/1.44. H/H was within normal limits at 13.1/39.9. EKG indicated non- specific T wave abnormalities. She reports improvement of her symptoms since admission. For her esophagitis, she is currently taking Protonix 40 mg BID & Famotidine 20 mg IV BID. She denies hematemesis, melena, or other associated symptoms. Allergies Allergy/AdvReac Type Severity Reaction Status Date / Time levofloxacin [From Levaquin] Allergy Unknown Unknown Unverified 12/31/18 03:29 Home Medications Home Medications Medication Instructions Recorded Confirmed Type amitriptyline 50 mg PO HS 06/14/18 12/31/18 History atorvastatin 40 mg PO HS 06/14/18 12/31/18 History cholecalciferol (vitamin D3) 2,000 unit PO QAM 06/14/18 12/31/18 History [Vitamin D3] cyanocobalamin (vitamin B-12) 1,000 mcg PO QAM 06/14/18 12/31/18 History [Vitamin B-12] gabapentin 1,900 mg PO BID 06/14/18 12/31/18 History glatiramer [Copaxone] 20 mg SUBCUT QAM 06/14/18 12/31/18 History lisinopril 20 mg PO QAM 06/14/18 12/31/18 History pantoprazole 40 mg PO BID #60 tab 12/12/18 12/31/18 Rx tramadol 50 mg tablet 50 mg PO Q6H #30 tab 12/25/18 12/31/18 Rx Patient History Medical History Urinary retention Constipation Fever Abnormal urinalysis SVT (supraventricular tachycardia) Paraplegia Lymphedema of left leg (Chronic) History of multiple sclerosis (Chronic) Multiple sclerosis Trigeminal neuralgia of left side of face (Resolved) Left-sided weakness (Acute) Family History Other Family history non-contributory Social History Preferred Language: Nigerien Communication Ability: Effective Senior Energy Market Coordinator Required: No Beliefs That Will Affect Care: None Current Living Situation: Alone Current Living Situation Comment: Home Health Other Information That Helps Us Care for You: No Feels Safe at Home: Yes Safety Concerns: Feels Safe At This Time Smoking Status: Unknown if ever smoked Hx Alcohol Use: No Hx Substance Use: No Review of Systems Constitutional: no fever Eyes: no acute complaints Respiratory: no cough and no dyspnea Cardiovascular: no chest pain Gastrointestinal: no abdominal pain no further n/v Musculoskeletal: no back pain Integumentary: no rash Neurologic: paraplegia Psychiatric: no acute complaints Endocrine: + fatigue Physical Exam Constitutional: well developed and well nourished; no acute distress Eyes: PERRL, conjunctivae normal, anicteric sclerae ENMT: external ear and nose normal, oropharynx normal Neck: normal visual inspection Respiratory: normal respiratory effort, lungs clear to auscultation Cardiovascular: Rate/Rhythm: regular rate and regular rhythm Gastrointestinal (Abdomen): normal bowel sounds, soft, nontender, no hepatosplenomegaly Musculoskeletal: Extremities: + limited ROM of extremities Skin: no rashes, warm and dry Neurologic: + does not move all extremities Psychiatric: A+Ox3, euthymic affect Results & Data Vital Signs (Past 12 Hours) Vital Signs Temp Pulse Pulse Resp BP BP Pulse Ox 12/31/18 08:00 87 12/31/18 07:32 36.8 C 84 18 113/74 95 12/31/18 06:22 37 C 81 18 98/65 L 95 12/31/18 05:46 85 18 157/77 H 96 12/31/18 04:30 92 H 12 97 12/31/18 04:23 90 18 95 12/31/18 04:02 93 H 20 93/30 L 12/31/18 04:00 106 H 20 12/31/18 03:33 86 20 12/31/18 03:32 88 18 87/57 L 12/31/18 03:30 89 20 12/31/18 03:14 37.1 C 91 H 18 81/36 L 95 12/31/18 03:11 100 H 29 H 92 12/31/18 03:08 134 H 25 H 81/36 L 94
[2018-12-31] MEDS: NYSTATIN POWDER 15GM BTL EXT PRN (10:59)
[2018-12-31 12:37] LABS: Hematocrit (blood only) 34.4 % (37-47); Hemoglobin 11.4 g/dL (12.0-16.0)
[2018-12-31] MEDS ORDERED: SUCRALFATE 1 GM/10 ML UDC PO SCH (13:00)
[2018-12-31] MEDS: SUCRALFATE 1 GM/10 ML UDC PO SCH ×2 (16:31→20:28)
[2018-12-31] MEDS: TRAMADOL HCL 50 MG TABLET PO SCH ×2 (17:42→23:40)
[2018-12-31 18:45] LABS: Hematocrit (blood only) 33.7 % (37-47); Hemoglobin 11.1 g/dL (12.0-16.0)
[2018-12-31] MEDS: GABAPENTIN 600 MG TAB PO SCH (20:30)
[2018-12-31] MEDS: ATORVASTATIN 40 MG TAB PO SCH (21:28)
[2018-12-31] MEDS: AMITRIPTYLINE HCL 50 MG TAB PO SCH (23:39)
[2019-01-01 00:29] LABS: Hematocrit (blood only) 32.3 % (37-47); Hemoglobin 10.6 g/dL (12.0-16.0)
[2019-01-01 05:44] LABS: Basophils # (auto) 0.02 K/uL (0-0.2); Basophils % (auto) 0.3 %; Eosinophils # (auto) 0.45 K/uL (0-0.5); Eosinophils % (auto) 6.3 %; Hematocrit (blood only) 32.4 % (37-47); Hemoglobin 10.6 g/dL (12.0-16.0); Immature Granulocytes # (auto) 0.03 K/uL (0.00-0.02); Immature Granulocytes % (auto) 0.4 %; Lymphocytes # (auto) 1.93 K/uL (1.2-3.4); Lymphocytes % (auto) 26.9 %; Mean Corpuscular Hgb Conc 32.7 g/dL (32-36); Mean Corpuscular Volume 93.9 fL (80-100); Mean Platelet Volume 9.1 fL (7.4-10.4); Monocytes # (auto) 0.62 K/uL (0.11-0.59); Monocytes % (auto) 8.6 %; Neutrophils # (auto) 4.13 K/uL (1.4-6.5); Neutrophils % (auto) 57.5 %; Platelet Count 232 K/uL (130-400); RDW Coefficient of Variation 13.3 % (11.5-14.5); RDW Standard Deviation 45.4 fL (36.4-46.3); Red Blood Count 3.45 M/uL (4.2-5.4); White Blood Count 7.18 K/uL (4.8-10.8)
[2019-01-01] MEDS: TRAMADOL HCL 50 MG TABLET PO SCH ×4 (05:55→23:29)
[2019-01-01] MEDS: FAMOTIDINE 20 MG in SYRINGE 3 ML IV SCH ×2 (05:56→18:13)
[2019-01-01] MEDS: SUCRALFATE 1 GM/10 ML UDC PO SCH ×4 (05:57→20:01)
[2019-01-01 06:02] LABS: Partial Thromboplastin Ratio 0.9; Partial Thromboplastin Time 24.5 Seconds (21.0-31.0)
[2019-01-01 06:13] LABS: Albumin Level 2.8 gm/dl (3.4-5.0); BUN Creatinine Ratio 22.8 (10-20); Calcium 8.8 mg/dl (8.5-10.1); Creatinine Clr Calc Pharmacy 59.6 ml/min; Est GFR (African American) 63.9; Est GFR (Non-African American) 55.2; Potassium 4.4 mmol/L (3.5-5.1)
[2019-01-01 06:17] LABS: Albumin Globulin Ratio 0.8 (0.9-2); Bilirubin,Total 0.3 mg/dl (0.2-1); Globulin 3.4 gm/dl (2.5-4.0); Total Protein 6.2 gm/dl (6.4-8.2)
[2019-01-01] MEDS: PANTOprazole 40 MG in SYRINGE 0 ML IV SCH ×2 (08:09→20:02)
[2019-01-01] MEDS: SODIUM CHLORIDE 0.9% 1000ML 1,000 ML IV SCH ×2 (08:09→18:14)
[2019-01-01] MEDS: cefTRIAXone SODIUM 2,000 MG in DEXTROSE 5% 50 ML IV SCH (08:09)
[2019-01-01] MEDS: GABAPENTIN 600 MG TAB PO SCH ×2 (08:09→20:02)
[2019-01-01] MEDS: LISINOPRIL 20 MG TAB PO SCH (08:41)
--- NOTE | 2019-01-01 17:44 | Hospitalist Progress Note ---
Date of Service January 01, 2019 Assessment & Plan (1) Hypotension: sepsis on presentation responded to volume resuscitation, suspect [place] cath associated uti poa was given zosyn but continues on ceftriaxone, previous ESBL and enterococcus preliminary cultures show gram-negative bacteria Resume antihypertensives. Follow H&H serially for potential development of anemia. (2) [place] grade C esophagitis: Recurrent symptoms of severe midepigastric and substernal burning- NPO Receiving 1 L of normal saline in ED. Continue NSS at 150 mils per hour. Serial H&H's. Begin pantoprazole 40 mg IV in the ED, and continue daily. Famotidine 20 mg IV every 12 hours. Consult her technical services coordinator Dr. Null he feels no intervention is needed continuing on acid suppressive therapy (3) Multiple sclerosis: Multiple sclerosis/paraplegia- Continue Copaxone 20 mg subcu every morning (4) Paraplegia: MS/paraplegia-seems to be at her baseline Continue Copaxone 20 mg subcu every morning. (5) HTN (hypertension): Resume lisinopril (6) HLD (hyperlipidemia): atorvastatin n.p.o. state (7) Vitamin B12 deficiency: Hold oral B12 supplement for now. Subjective Patient feels much much better she is less dyspepsia and dysphasia her strength is improving Review of Systems Review of Systems: ROS: well nourished well developed she is baseline weakness from her multiple sclerosis. No double vision blurry vision No problems with speech or swallowing No palpitations, chest pain or pressure No Wheezing or breathing issues No abdominal pain nausea vomiting diarrhea changes in appetite or weight Chronic catheter with cloudy urine No focal joint pain or muscle pain No skin rashes or oral lesions No unusual bruising or bleeding No focused back pain or baseline weakness of strength due to her multiple sclerosis No changes in memory or confusion Physical Exam Physical Exam: The patient appeared well nourished and normally developed. Vital signs as documented. Head exam is unremarkable. normocephalic, atraumatic Neck is without jugular venous distension, thyromegaly, or lymphademopathy Lungs are clear but decreased at the bases Cardiac exam reveals Rhythm is regular. First and second heart sounds normal. Abdominal exam reveals normal bowel sounds, no masses, no organomegaly Extremities are nonedematous and both pedal pulses are present Neurologic exam is A&Ox3, lower extremity weakness 4/5 bilaterally sensation intact Psychologically seems neither anxious or depressed Skin is warm Dry Results & Data Vital Signs (Past 12 Hours) Vital Signs Temp Pulse Resp BP Pulse Ox 01/01/19 15:13 36.7 C 76 20 118/51 L 93 01/01/19 11:25 37 C 76 18 119/72 93 01/01/19 08:44 125/74 01/01/19 07:09 36.4 C L 67 18 112/66 96 PG Care Time/CCT Total # of Minutes Spent Total Time Spent with Patient: Total time spent is greater than 50% in coordination of care (as documented) at patient's floor/unit and/or counseling patient: (1) HLD (hyperlipidemia) Hyperlipidemia type: unspecified Qualified Code(s): E78.5 - Hyperlipidemia, unspecified (2) HTN (hypertension) Hypertension type: essential hypertension Qualified Code(s): I10 - Essential (primary) hypertension
[2019-01-01] MEDS: HEPARIN SOD 5,000 UNIT/0.5 ML VIAL SQ SCH (20:02)
[2019-01-01] MEDS: ATORVASTATIN 40 MG TAB PO SCH (20:02)
[2019-01-01] MEDS: AMITRIPTYLINE HCL 50 MG TAB PO SCH (20:02)
[2019-01-02] MEDS: SODIUM CHLORIDE 0.9% 1000ML 1,000 ML IV SCH ×2 (04:02→14:19)
[2019-01-02] MEDS: TRAMADOL HCL 50 MG TABLET PO SCH ×3 (05:01→18:16)
[2019-01-02 06:00] LABS: Basophils # (auto) 0.02 K/uL (0-0.2); Basophils % (auto) 0.3 %; Eosinophils # (auto) 0.44 K/uL (0-0.5); Eosinophils % (auto) 6.6 %; Hematocrit (blood only) 33.7 % (37-47); Hemoglobin 10.7 g/dL (12.0-16.0); Immature Granulocytes # (auto) 0.02 K/uL (0.00-0.02); Immature Granulocytes % (auto) 0.3 %; Lymphocytes # (auto) 1.81 K/uL (1.2-3.4); Lymphocytes % (auto) 27.1 %; Mean Corpuscular Hgb Conc 31.8 g/dL (32-36); Mean Platelet Volume 9.3 fL (7.4-10.4); Monocytes # (auto) 0.61 K/uL (0.11-0.59); Monocytes % (auto) 9.1 %; Neutrophils # (auto) 3.79 K/uL (1.4-6.5); Neutrophils % (auto) 56.6 %; Platelet Count 231 K/uL (130-400); RDW Coefficient of Variation 13.3 % (11.5-14.5); RDW Standard Deviation 46.4 fL (36.4-46.3); Red Blood Count 3.51 M/uL (4.2-5.4); White Blood Count 6.69 K/uL (4.8-10.8)
[2019-01-02] MEDS: SUCRALFATE 1 GM/10 ML UDC PO SCH ×4 (06:02→20:30)
[2019-01-02] MEDS: FAMOTIDINE 20 MG in SYRINGE 3 ML IV SCH (06:02)
[2019-01-02 06:42] LABS: Albumin Globulin Ratio 0.9 (0.9-2); Albumin Level 2.9 gm/dl (3.4-5.0); BUN Creatinine Ratio 15.5 (10-20); Bilirubin,Total 0.4 mg/dl (0.2-1); Est GFR (African American) 68.2; Est GFR (Non-African American) 58.8; Globulin 3.4 gm/dl (2.5-4.0); Magnesium 1.8 mg/dl (1.8-2.4); Potassium 4.3 mmol/L (3.5-5.1); Total Protein 6.3 gm/dl (6.4-8.2)
[2019-01-02] MEDS: LISINOPRIL 20 MG TAB PO SCH (07:23)
[2019-01-02] MEDS: HEPARIN SOD 5,000 UNIT/0.5 ML VIAL SQ SCH ×2 (07:23→20:30)
[2019-01-02] MEDS: GABAPENTIN 600 MG TAB PO SCH ×2 (07:24→20:31)
[2019-01-02] MEDS: PANTOprazole 40 MG in SYRINGE 0 ML IV SCH (07:28)
[2019-01-02] MEDS ORDERED: FUROSEMIDE 20 MG in SYRINGE 0 ML IV ONE (09:53)
[2019-01-02] MEDS: cefTRIAXone SODIUM 2,000 MG in DEXTROSE 5% 50 ML IV SCH (10:55)
[2019-01-02] MEDS: ACETAMINOPHEN 1000 MG/100 ML IV IV PRN (13:59)
--- NOTE | 2019-01-02 14:18 | Ultrasound Report ---
US venous doppler LE LT HISTORY: 78 years-old Female swelling acute pain and swelling of the left lower extremity COMPARISON: Duplex venous Doppler study 12/12/2018 TECHNIQUE: Multiple real-time sonographic images of the left lower extremity deep venous structures w ere obtained assessing grayscale appearance, color and spectral flow FINDINGS: Limited exam secondary to patient body habitus and subcutaneous edema. Linear nonocclusive thrombus a bout the common femoral and profunda femoris veins. And remaining the venous structures of the left l ower extremity. Unremarkable. Normal flow, compressibility, phasicity and augmentation. IMPRESSION: 1. Nonocclusive thrombus of the common femoral and profunda femoris veins, new from 12/12/2018. 2. No occlusive deep venous thrombi identified. The above report was generated using voice recognition software. It may contain grammatical, syntax o r spelling errors. Electronically signed by: Bird López M.D. 01/02/2019 2:17 PM
--- NOTE | 2019-01-02 14:52 | Hospitalist Progress Note ---
Date of Service January 02, 2019 Assessment & Plan (1) Hypotension: sepsis on presentation responded to volume resuscitation, suspect [place] cath associated uti poa, ESBL was given zosyn but continues on ceftriaxone, With ESBL will need at least 1 week of IV antibiotics. Patient lives home alone without caregivers her sister attempting to look into insurance coverage for home administration Resume antihypertensives. Anemia of chronic disease remains stable. (2) [place] grade C esophagitis: Recurrent symptoms of severe midepigastric and substernal burning-these have now resolved Resume diet Receiving 1 L of normal saline in ED. Continue NSS at 150 mils per hour. Serial H&H's. Begin pantoprazole 40 mg IV in the ED, and continue daily. Famotidine 20 mg IV every 12 hours. Consult her parts administrator Dr. Null he feels no intervention is needed continuing on acid suppressive therapy (3) Multiple sclerosis: Multiple sclerosis/paraplegia- Continue Copaxone 20 mg subcu every morning (4) Paraplegia: MS/paraplegia-seems to be at her baseline Continue Copaxone 20 mg subcu every morning. (5) HTN (hypertension): Controlled with lisinopril (6) HLD (hyperlipidemia): Remains on atorvastatin (7) Vitamin B12 deficiency: Hold oral B12 supplement for now. Subjective Patient seems to be markedly improved she is concerned about her left leg being slightly swollen more than baseline she says she typically takes a diuretic for this Review of Systems Review of Systems: ROS: well nourished well developed. No double vision blurry vision No problems with speech or swallowing No palpitations, chest pain or pressure No Wheezing or breathing issues No abdominal pain nausea vomiting diarrhea changes in appetite or weight She is a chronic catheter No focal joint pain increased left leg swelling No skin rashes or oral lesions No unusual bruising or bleeding No focused back pain no new numbness or loss of strength but baseline has weakness and loss of sensation or lower extremities No changes in memory or confusion Physical Exam Physical Exam: The patient appeared chronically ill but improving Vital signs as documented. Head exam is unremarkable. normocephalic, atraumatic Neck is without jugular venous distension, thyromegaly, or lymphademopathy Lungs are clear to auscultation but diminished at the bases Cardiac exam reveals Rhythm is regular. Slight systolic ejection murmur is pre sent Abdominal exam reveals normal bowel sounds, no masses, no organomegaly Extremities are left leg is more edematous than right both are mild to moderate and both pedal pulses are present Neurologic exam is A&Ox3, no focal loss but weakness and nonambulatory to her lower legs Psychologically seems neither anxious or depressed Skin is warm Dry Results & Data Vital Signs (Past 12 Hours) Vital Signs Temp Pulse Resp BP BP Pulse Ox 01/02/19 11:47 36.3 C L 90 18 148/69 H 93 01/02/19 07:19 36.7 C 70 18 143/78 H 92 01/02/19 03:24 36.7 C 78 20 129/73 94 PG Care Time/CCT Total # of Minutes Spent Total Time Spent with Patient: Total time spent is greater than 50% in coordination of care (as documented) at patient's floor/unit and/or counseling patient: (1) HLD (hyperlipidemia) Hyperlipidemia type: unspecified Qualified Code(s): E78.5 - Hyperlipidemia, unspecified (2) HTN (hypertension) Hypertension type: essential hypertension Qualified Code(s): I10 - Essential (primary) hypertension
[2019-01-02] MEDS: FAMOTIDINE 20 MG TAB PO SCH (18:16)
[2019-01-02] MEDS: ATORVASTATIN 40 MG TAB PO SCH (20:31)
[2019-01-02] MEDS: PANTOprazole 40 MG TAB PO SCH (20:31)
[2019-01-02] MEDS: AMITRIPTYLINE HCL 50 MG TAB PO SCH (20:31)
[2019-01-03] MEDS: TRAMADOL HCL 50 MG TABLET PO SCH ×5 (00:02→23:46)
[2019-01-03] MEDS: SODIUM CHLORIDE 0.9% 1000ML 1,000 ML IV SCH ×3 (00:11→21:13)
[2019-01-03] MEDS: FAMOTIDINE 20 MG TAB PO SCH ×2 (04:49→17:42)
[2019-01-03 06:06] LABS: Basophils # (auto) 0.02 K/uL (0-0.2); Basophils % (auto) 0.3 %; Eosinophils # (auto) 0.48 K/uL (0-0.5); Eosinophils % (auto) 8.4 %; Hematocrit (blood only) 32.1 % (37-47); Hemoglobin 10.4 g/dL (12.0-16.0); Immature Granulocytes # (auto) 0.02 K/uL (0.00-0.02); Immature Granulocytes % (auto) 0.3 %; Lymphocytes # (auto) 1.54 K/uL (1.2-3.4); Lymphocytes % (auto) 26.9 %; Mean Corpuscular Hgb Conc 32.4 g/dL (32-36); Mean Corpuscular Volume 94.4 fL (80-100); Mean Platelet Volume 9.4 fL (7.4-10.4); Monocytes # (auto) 0.42 K/uL (0.11-0.59); Monocytes % (auto) 7.3 %; Neutrophils # (auto) 3.24 K/uL (1.4-6.5); Neutrophils % (auto) 56.8 %; Platelet Count 244 K/uL (130-400); RDW Coefficient of Variation 13.1 % (11.5-14.5); RDW Standard Deviation 44.9 fL (36.4-46.3); White Blood Count 5.72 K/uL (4.8-10.8)
[2019-01-03 06:19] LABS: Prothrombin Time 10.2 Seconds (9.0-12.0)
[2019-01-03 06:41] LABS: Albumin Level 2.8 gm/dl (3.4-5.0); BUN Creatinine Ratio 12.8 (10-20); Creatinine Clr Calc Pharmacy 74.3 ml/min; Est GFR (African American) 83.2; Est GFR (Non-African American) 71.8; Magnesium 1.6 mg/dl (1.8-2.4); Potassium 3.9 mmol/L (3.5-5.1)
[2019-01-03 06:44] LABS: Albumin Globulin Ratio 0.9 (0.9-2); Bilirubin,Total 0.4 mg/dl (0.2-1); Globulin 3.2 gm/dl (2.5-4.0)
[2019-01-03] MEDS: SUCRALFATE 1 GM/10 ML UDC PO SCH ×4 (07:50→20:29)
[2019-01-03] MEDS: GABAPENTIN 600 MG TAB PO SCH ×2 (07:50→21:33)
[2019-01-03] MEDS: HEPARIN SOD 5,000 UNIT/0.5 ML VIAL SQ SCH (07:50)
[2019-01-03] MEDS: PANTOprazole 40 MG TAB PO SCH ×2 (07:50→21:33)
[2019-01-03] MEDS: LISINOPRIL 20 MG TAB PO SCH (07:51)
[2019-01-03] MEDS: cefTRIAXone SODIUM 2,000 MG in DEXTROSE 5% 50 ML IV SCH (07:52)
[2019-01-03] MEDS ORDERED: cefTRIAXone SODIUM 2,000 MG in DEXTROSE 5% 50 ML IV SCH (09:00)
--- NOTE | 2019-01-03 13:41 | Hospitalist Progress Note ---
Date of Service January 03, 2019 Assessment & Plan (1) Hypotension: sepsis on presentation responded to volume resuscitation, suspect [place] cath associated uti poa, ESBL was given zosyn but continues on ceftriaxone, With ESBL will need at least 1 week of IV antibiotics. Patient lives home alone without caregivers her sister attempting to look into insurance coverage for home administration Anemia of chronic disease remains stable. (2) [place] grade C esophagitis: Recurrent symptoms of severe midepigastric and substernal burning-these have now resolved Resume diet Receiving 1 L of normal saline in ED. Continue NSS at 150 mils per hour. Serial H&H's. Begin pantoprazole 40 mg IV in the ED, and continue daily. Famotidine 20 mg IV every 12 hours. Consult her supervisor loading Dr. Null he feels no intervention is needed continuing on acid suppressive therapy (3) Multiple sclerosis: Multiple sclerosis/paraplegia- Continue Copaxone 20 mg subcu every morning (4) Paraplegia: MS/paraplegia-seems to be at her baseline Continue Copaxone 20 mg subcu every morning. (5) HTN (hypertension): Controlled with lisinopril (6) HLD (hyperlipidemia): Remains on atorvastatin (7) Vitamin B12 deficiency: Hold oral B12 supplement for now. (8) DVT (deep venous thrombosis): Given the patient's nonocclusive thrombus of the common femoral profunda femoral veins new from 12/12/2018 starting subcutaneous Lovenox at full dose cautiously given her history of recent esophagitis Subjective this pt is doing well, she is almost at her baseline, still looking for a good way to complete iv antibiotics Review of Systems Review of Systems: ROS: pt states she is near her baseline No double vision blurry vision No problems with speech or swallowing No palpitations, chest pain or pressure No Wheezing or breathing issues No abdominal pain nausea vomiting diarrhea changes in appetite or weight No burning urine has chronic indwelling griffiths No focal joint pain or muscle pain No skin rashes or oral lesions No unusual bruising or bleeding No focused back pain has baseline numbness and weakness No changes in memory or confusion Physical Exam Physical Exam: The patient appeared chronically ill but in stable condition Vital signs as documented. Head exam is unremarkable. normocephalic, atraumatic Neck is without jugular venous distension, thyromegaly, or lymphademopathy Lungs are clear but decreased at the bases Cardiac exam reveals Rhythm is regular. Abdominal exam reveals normal bowel sounds, no masses, no organomegaly soft and nontender Extremities are mildly edematous and both pedal pulses are present Neurologic exam is A&Ox3, persistent lower extremity weakness Psychologically seems neither anxious or depressed Skin is warm Dry without bruises or lesions Results & Data Vital Signs (Past 12 Hours) Vital Signs Temp Pulse Pulse Resp BP Pulse Ox 01/03/19 10:57 36.7 C 91 H 18 139/75 93 01/03/19 08:00 80 01/03/19 07:02 36.7 C 77 18 158/77 H 92 01/03/19 02:59 36.5 C 88 18 153/85 H 93 PG Care Time/CCT Total # of Minutes Spent Total Time Spent with Patient: Total time spent is greater than 50% in coordination of care (as documented) at patient's floor/unit and/or counseling patient: (1) HTN (hypertension) Hypertension type: essential hypertension Qualified Code(s): I10 - Essential (primary) hypertension (2) HLD (hyperlipidemia) Hyperlipidemia type: unspecified Qualified Code(s): E78.5 - Hyperlipidemia, unspecified
[2019-01-03] MEDS: ENOXAPARIN 100 MG/1ML SYR SQ SCH (21:32)
[2019-01-03] MEDS: AMITRIPTYLINE HCL 50 MG TAB PO SCH (21:33)
[2019-01-03] MEDS: ATORVASTATIN 40 MG TAB PO SCH (21:33)
[2019-01-04] MEDS: FAMOTIDINE 20 MG TAB PO SCH ×2 (06:07→18:23)
[2019-01-04] MEDS: TRAMADOL HCL 50 MG TABLET PO SCH ×4 (06:08→23:16)
[2019-01-04] MEDS: SUCRALFATE 1 GM/10 ML UDC PO SCH ×4 (06:33→20:04)
[2019-01-04] MEDS: SODIUM CHLORIDE 0.9% 1000ML 1,000 ML IV SCH ×2 (07:16→18:24)
[2019-01-04] MEDS: ENOXAPARIN 100 MG/1ML SYR SQ SCH ×2 (09:08→18:24)
[2019-01-04] MEDS: MAGNESIUM SULFATE / D5W 1 GM/100 ML BAG IV SCH ×2 (09:12→11:08)
[2019-01-04] MEDS: GABAPENTIN 600 MG TAB PO SCH ×2 (09:16→21:05)
[2019-01-04] MEDS: PANTOprazole 40 MG TAB PO SCH ×2 (09:17→21:04)
[2019-01-04] MEDS: LISINOPRIL 20 MG TAB PO SCH (09:18)
[2019-01-04] MEDS: cefTRIAXone SODIUM 2,000 MG in DEXTROSE 5% 50 ML IV SCH (10:31)
[2019-01-04] MEDS: ACETAMINOPHEN 1000 MG/100 ML IV IV PRN (15:37)
--- NOTE | 2019-01-04 15:55 | Hospitalist Progress Note ---
Date of Service January 04, 2019 Assessment & Plan (1) Hypotension: sepsis on presentation resolved after it responded to volume resuscitation, suspect [place] cath associated uti poa, ESBL With ESBL will need at least 1 week of IV Rocephin antibiotics. Less that should be somewhere in and around January 07, patient lives home alone without caregivers Anemia of chronic disease remains stable. (2) [place] grade C esophagitis: Recurrent symptoms of severe midepigastric and substernal burning-these have now resolved Resume diet Symptoms have resolved H&H is been stable Begin pantoprazole 40 mg IV in the ED, and continue daily. Famotidine 20 mg IV every 12 hours. Consult her type inspector Dr. Null he feels no intervention is needed continuing on acid suppressive therapy (3) Multiple sclerosis: Multiple sclerosis/paraplegia- Continue Copaxone 20 mg subcu every morning (4) Paraplegia: MS/paraplegia-seems to be at her baseline Continue Copaxone 20 mg subcu every morning. (5) HTN (hypertension): Controlled with lisinopril (6) HLD (hyperlipidemia): Remains on atorvastatin (7) Vitamin B12 deficiency: Hold oral B12 supplement for now. (8) DVT (deep venous thrombosis): Given the patient's nonocclusive thrombus of the common femoral profunda femoral veins new from 12/12/2018 starting subcutaneous Lovenox at full dose cautiously given her history of recent esophagitis issues no reduction in her hemoglobin consideration of transition to attending inhibiting agent on discharge could be undertaken Subjective Has no new complaints or problems her left leg remains continually swollen she has no shortness of breath at this Pepcid Review of Systems Review of Systems: ROS: No significant distress No double vision blurry vision No problems with speech or swallowing No palpitations, chest pain or pressure No Wheezing or breathing issues No abdominal pain nausea vomiting diarrhea changes in appetite or weight No burning urine urine frequency or changes in color No focal joint pain or muscle pain No skin rashes or oral lesions No unusual bruising or bleeding No focused back pain persistent weakness and some swelling to LE No changes in memory or confusion Physical Exam Physical Exam: The patient appeared well nourished and normally developed. Vital signs as documented. Head exam is unremarkable. normocephalic, atraumatic Neck is without jugular venous distension, thyromegaly, or lymphademopathy Lungs are clear to auscultation and percussion. Cardiac exam reveals Rhythm is regular. First and second heart sounds normal. Abdominal exam reveals normal bowel sounds, no masses, no organomegaly Extremities are mildly edematous left greater than right Neurologically she is awake alert appropriate, she has persistent lower extrem ity weakness which is her chronic condition no focal deficits Psychologically seems neither anxious or depressed Skin is warm Dry without bruises or lesions Results & Data Vital Signs (Past 12 Hours) Vital Signs Temp Pulse Resp BP Pulse Ox 01/04/19 15:26 36.8 C 92 H 21 170/86 H 90 01/04/19 07:27 36.5 C 66 16 158/83 H 95 PG Care Time/CCT Total # of Minutes Spent Total Time Spent with Patient: Total time spent is greater than 50% in coordination of care (as documented) at patient's floor/unit and/or counseling patient: (1) HTN (hypertension) Hypertension type: essential hypertension Qualified Code(s): I10 - Essential (primary) hypertension (2) HLD (hyperlipidemia) Hyperlipidemia type: unspecified Qualified Code(s): E78.5 - Hyperlipidemia, unspecified
[2019-01-04] MEDS: AMITRIPTYLINE HCL 50 MG TAB PO SCH (21:05)
[2019-01-04] MEDS: ATORVASTATIN 40 MG TAB PO SCH (21:06)
[2019-01-05] MEDS: SODIUM CHLORIDE 0.9% 1000ML 1,000 ML IV SCH ×2 (03:35→17:02)
[2019-01-05] MEDS: TRAMADOL HCL 50 MG TABLET PO SCH ×4 (06:07→22:50)
[2019-01-05] MEDS: FAMOTIDINE 20 MG TAB PO SCH ×2 (06:09→17:04)
[2019-01-05] MEDS: SUCRALFATE 1 GM/10 ML UDC PO SCH ×4 (06:10→20:08)
[2019-01-05] MEDS: ENOXAPARIN 100 MG/1ML SYR SQ SCH ×2 (06:10→20:05)
[2019-01-05] MEDS: ACETAMINOPHEN 1000 MG/100 ML IV IV PRN (08:43)
[2019-01-05] MEDS: cefTRIAXone SODIUM 2,000 MG in DEXTROSE 5% 50 ML IV SCH (08:46)
[2019-01-05] MEDS: PANTOprazole 40 MG TAB PO SCH ×2 (08:46→20:09)
[2019-01-05] MEDS: GABAPENTIN 600 MG TAB PO SCH ×2 (08:46→20:09)
[2019-01-05] MEDS: LISINOPRIL 20 MG TAB PO SCH (08:46)
[2019-01-05] MEDS: NYSTATIN POWDER 15GM BTL EXT PRN (19:54)
[2019-01-05] MEDS: AMITRIPTYLINE HCL 50 MG TAB PO SCH (20:09)
[2019-01-05] MEDS: ATORVASTATIN 40 MG TAB PO SCH (20:09)
--- NOTE | 2019-01-05 22:56 | Hospitalist Progress Note ---
Date of Service January 05, 2019 Assessment & Plan (1) Hypotension: sepsis on presentation resolved after it responded to volume resuscitation, suspect [place] cath associated uti poa, ESBL With ESBL will need at least 1 week of IV Rocephin antibiotics. Less that should be somewhere in and around January 07, patient lives home alone without caregivers Anemia of chronic disease remains stable. (2) [place] grade C esophagitis: Recurrent symptoms of severe midepigastric and substernal burning-these have now resolved Resume diet Symptoms have resolved H&H is been stable Begin pantoprazole 40 mg IV in the ED, and continue daily. Famotidine 20 mg IV every 12 hours. Consult her electronics supervisor Dr. Null he feels no intervention is needed continuing on acid suppressive therapy (3) Multiple sclerosis: Multiple sclerosis/paraplegia- Continue Copaxone 20 mg subcu every morning (4) Paraplegia: MS/paraplegia-seems to be at her baseline Continue Copaxone 20 mg subcu every morning. (5) HTN (hypertension): Controlled with lisinopril (6) HLD (hyperlipidemia): Remains on atorvastatin (7) Vitamin B12 deficiency: Hold oral B12 supplement for now. (8) DVT (deep venous thrombosis): Given the patient's nonocclusive thrombus of the common femoral profunda femoral veins new from 12/12/2018 starting subcutaneous Lovenox at full dose cautiously given her history of recent esophagitis issues no reduction in her hemoglobin consideration of transition to attending inhibiting agent on discharge could be undertaken Will consider starting a NOAC given that her hemoglobin has been stable. Spent 36 minutes in management of patient. Subjective Patient has no new symptoms. Review of Systems Review of Systems: All systems reviewed & are unremarkable except as noted in HPI & below Physical Exam Physical Exam: The patient appeared well nourished and normally developed. Vital signs as documented. Head exam is unremarkable. normocephalic, atraumatic Neck is without jugular venous distension, thyromegaly, or lymphademopathy Lungs are clear to auscultation and percussion. Cardiac exam reveals Rhythm is regular. First and second heart sounds normal. Abdominal exam reveals normal bowel sounds, no masses, no organomegaly Extremities are mildly edematous left greater than right Neurologically she is awake alert appropriate, she has persistent lower extremity weakness which is her chronic condition no focal deficits Psychologically seems neither anxious or depressed Skin is warm Dry without bruises or lesions Results & Data Vital Signs (Past 12 Hours) Vital Signs Temp Pulse Resp BP Pulse Ox 01/05/19 15:38 36.6 C 71 20 157/91 H 95 PG Care Time/CCT Total # of Minutes Spent Total Time Spent with Patient: Total time spent is greater than 50% in coordination of care (as documented) at patient's floor/unit and/or counseling patient: (1) HLD (hyperlipidemia) Hyperlipidemia type: unspecified Qualified Code(s): E78.5 - Hyperlipidemia, unspecified (2) HTN (hypertension) Hypertension type: essential hypertension Qualified Code(s): I10 - Essential (primary) hypertension
[2019-01-06] MEDS: SODIUM CHLORIDE 0.9% 1000ML 1,000 ML IV SCH ×3 (02:56→22:41)
[2019-01-06] MEDS: TRAMADOL HCL 50 MG TABLET PO SCH ×4 (05:59→22:39)
[2019-01-06] MEDS: FAMOTIDINE 20 MG TAB PO SCH ×2 (06:00→17:13)
[2019-01-06] MEDS: SUCRALFATE 1 GM/10 ML UDC PO SCH ×4 (06:00→20:58)
[2019-01-06] MEDS: ENOXAPARIN 100 MG/1ML SYR SQ SCH ×2 (06:00→19:04)
[2019-01-06 07:51] LABS: Hematocrit (blood only) 32.2 % (37-47); Hemoglobin 10.4 g/dL (12.0-16.0); Mean Corpuscular Hgb Conc 32.3 g/dL (32-36); Mean Corpuscular Volume 94.4 fL (80-100); Mean Platelet Volume 9.6 fL (7.4-10.4); Platelet Count 245 K/uL (130-400); RDW Coefficient of Variation 13.3 % (11.5-14.5); RDW Standard Deviation 45.9 fL (36.4-46.3); Red Blood Count 3.41 M/uL (4.2-5.4); White Blood Count 5.53 K/uL (4.8-10.8)
[2019-01-06] MEDS: GABAPENTIN 600 MG TAB PO SCH ×2 (08:06→20:59)
[2019-01-06] MEDS: LISINOPRIL 20 MG TAB PO SCH (08:06)
[2019-01-06] MEDS: PANTOprazole 40 MG TAB PO SCH ×2 (08:07→21:00)
[2019-01-06] MEDS: cefTRIAXone SODIUM 2,000 MG in DEXTROSE 5% 50 ML IV SCH (08:07)
[2019-01-06 08:24] LABS: BUN Creatinine Ratio 8.2 (10-20); Calcium 8.9 mg/dl (8.5-10.1); Creatinine Clr Calc Pharmacy 90.6 ml/min; Est GFR (African American) 97.7; Est GFR (Non-African American) 84.3; Potassium 3.6 mmol/L (3.5-5.1)
[2019-01-06] MEDS: AMITRIPTYLINE HCL 50 MG TAB PO SCH (20:58)
[2019-01-06] MEDS: ATORVASTATIN 40 MG TAB PO SCH (20:59)
--- NOTE | 2019-01-06 22:59 | Hospitalist Progress Note ---
Date of Service January 06, 2019 Assessment & Plan (1) Hypotension: sepsis on presentation resolved after it responded to volume resuscitation, suspect [place] cath associated uti poa, ESBL With ESBL will need at least 1 week of IV Rocephin antibiotics. Less that should be somewhere in and around January 07, patient lives home alone without caregivers Anemia of chronic disease remains stable. Anticipate finishing antibiotics on 01/07. Patient may be able to go home. (2) Rosebud grade C esophagitis: Recurrent symptoms of severe midepigastric and substernal burning-these have now resolved Resume diet Symptoms have resolved H&H is been stable Begin pantoprazole 40 mg IV in the ED, and continue daily. Famotidine 20 mg IV every 12 hours. Consult her detective investigator Dr. Null he feels no intervention is needed continuing on acid suppressive therapy Medications have been switched to PO, will continue. (3) Multiple sclerosis: Multiple sclerosis/paraplegia- Continue Copaxone 20 mg subcu every morning (4) Paraplegia: MS/paraplegia-seems to be at her baseline Continue Copaxone 20 mg subcu every morning. (5) HTN (hypertension): Controlled with lisinopril (6) HLD (hyperlipidemia): Remains on atorvastatin (7) Vitamin B12 deficiency: Hold oral B12 supplement for now. (8) DVT (deep venous thrombosis): Given the patient's nonocclusive thrombus of the common femoral profunda femoral veins new from 12/12/2018 starting subcutaneous Lovenox at full dose cautiously given her history of recent esophagitis issues no reduction in her hemoglobin consideration of transition to attending inhibiting agent on discharge could be undertaken Will consider starting a NOAC given that her hemoglobin has been stable. As noted earlier, will conitnue lovenox. Patient will likely be discharged on eliquis. Spent 26 minutes in management of patient. Subjective 78 yo female reports feeling well. She anticipates being discharged tomorrow. Patient has no new complaints. Review of Systems Review of Systems: ROS: No significant distress No double vision blurry vision No problems with speech or swallowing No palpitations, chest pain or pressure No Wheezing or breathing issues No abdominal pain nausea vomiting diarrhea changes in appetite or weight No burning urine urine frequency or changes in color No focal joint pain or muscle pain No skin rashes or oral lesions No unusual bruising or bleeding No focused back pain persistent weakness and some swelling to LE No changes in memory or confusion Physical Exam Physical Exam: The patient appeared well nourished and normally developed. Vital signs as documented. Head exam is unremarkable. normocephalic, atraumatic Neck is without jugular venous distension, thyromegaly, or lymphademopathy Lungs are clear to auscultation and percussion. Cardiac exam reveals Rhythm is regular. First and second heart sounds normal. Abdominal exam reveals normal bowel sounds, no masses, no organomegaly Extremities are mildly edematous left greater than right Neurologically she is awake alert appropriate, she has persistent lower extremity weakness which is her chronic condition no focal deficits Psychologically seems neither anxious or depressed Skin is warm Dry without bruises or lesions PG Care Time/CCT Total # of Minutes Spent Total Time Spent with Patient: Total time spent is greater than 50% in coordination of care (as documented) at patient's floor/unit and/or counseling patient: (1) HLD (hyperlipidemia) Hyperlipidemia type: unspecified Qualified Code(s): E78.5 - Hyperlipidemia, unspecified (2) HTN (hypertension) Hypertension type: essential hypertension Qualified Code(s): I10 - Essential (primary) hypertension
[2019-01-07] MEDS ORDERED: LORazepam 0.5 MG/1 ML VIAL IV STA (00:09)
--- NOTE | 2019-01-07 05:18 | Progress Note ---
Date of Service January 07, 2019 Subjective HR elevated to 139 around midnight nurse called Pt was resting and comfortable EKG obtained rate 139 sinus tach with short MI - however concern for SVT based on my reading, pt also has noted hx of SVT Vagal maneuvers - ice not successful Pt transferred to PCU for treatment and cardiac monitoring Upon arrival to PCU pt's HR had improved to 80s without need for intervention No further calls received Results & Data Vital Signs (Past 12 Hours) Vital Signs Temp Pulse Pulse Resp BP BP Pulse Ox 01/07/19 04:13 36.5 C 83 18 131/77 93 01/07/19 02:00 37.2 C 86 18 149/88 H 93 01/07/19 01:45 73 01/07/19 00:30 138 H 138/83 01/06/19 23:00 36.7 C 139 H 18 139/81 91 PG Care Time/CCT Total # of Minutes Spent Total Time Spent with Patient: Total time spent is greater than 50% in coordination of care (as documented) at patient's floor/unit and/or counseling patient:
[2019-01-07] MEDS: SUCRALFATE 1 GM/10 ML UDC PO SCH ×4 (06:37→20:00)
[2019-01-07] MEDS: ENOXAPARIN 100 MG/1ML SYR SQ SCH ×2 (06:37→20:00)
[2019-01-07] MEDS: TRAMADOL HCL 50 MG TABLET PO SCH ×4 (06:41→23:28)
[2019-01-07 07:36] LABS: Basophils # (auto) 0.02 K/uL (0-0.2); Basophils % (auto) 0.4 %; Eosinophils # (auto) 0.47 K/uL (0-0.5); Eosinophils % (auto) 8.7 %; Hemoglobin 10.6 g/dL (12.0-16.0); Immature Granulocytes # (auto) 0.01 K/uL (0.00-0.02); Immature Granulocytes % (auto) 0.2 %; Lymphocytes % (auto) 29.6 %; Mean Corpuscular Hgb Conc 32.1 g/dL (32-36); Mean Corpuscular Volume 94.6 fL (80-100); Mean Platelet Volume 9.1 fL (7.4-10.4); Monocytes % (auto) 11.1 %; Platelet Count 230 K/uL (130-400); RDW Coefficient of Variation 13.5 % (11.5-14.5); RDW Standard Deviation 46.4 fL (36.4-46.3); Red Blood Count 3.49 M/uL (4.2-5.4)
[2019-01-07] MEDS: PANTOprazole 40 MG TAB PO SCH ×2 (07:44→20:12)
[2019-01-07] MEDS: GABAPENTIN 600 MG TAB PO SCH ×2 (07:44→20:12)
[2019-01-07] MEDS: FAMOTIDINE 20 MG TAB PO SCH ×2 (07:44→18:02)
[2019-01-07] MEDS: LISINOPRIL 20 MG TAB PO SCH ×2 (07:44→08:01)
[2019-01-07 07:52] LABS: BUN Creatinine Ratio 5.4 (10-20); Calcium 8.9 mg/dl (8.5-10.1); Creatinine Clr Calc Pharmacy 85.2 ml/min; Est GFR (African American) 95.8; Est GFR (Non-African American) 82.6; Magnesium 1.6 mg/dl (1.8-2.4); Potassium 3.6 mmol/L (3.5-5.1)
[2019-01-07] MEDS: cefTRIAXone SODIUM 2,000 MG in DEXTROSE 5% 50 ML IV SCH (08:01)
[2019-01-07] MEDS: SODIUM CHLORIDE 0.9% 1000ML 1,000 ML IV SCH ×2 (08:01→18:04)
[2019-01-07] MEDS ORDERED: METOPROLOL TARTRATE 1 MG/ML VIAL IV STA (08:12)
--- NOTE | 2019-01-07 16:42 | Cardiology Consultation ---
Date of Consultation January 07, 2019 Assessment & Plan (1) SVT (supraventricular tachycardia): The patient has history of SVT having been evaluated in May of 2018. Last night she had another episode of the identical rhythm. She was not symptomatic from the arrhythmia. She did have elevated heart rates. Given her comorbidities I think we can treat this conservatively. I would advocate initiation of metoprolol 25 milligrams twice daily to see if this reduces some of the episodes or heart rates. We will need to monitor blood pressure in any symptoms associated with addition of this medication. Additionally, the exact mechanism of her SVT cannot be known based on the EKGs. There is some concern that this represents an atrial flutter. She is known to have some right-sided heart disease which would predispose her to atrial flutter. Alternatively, this could be a simple reentrant SVT such as AVNRT. The main concern would be her risk for stroke with atrial flutter. She would benefit from systemic anticoagulation we felt this represented atrial flutter. It seems that she will be anticoagulated in any event for an actual DVT and I would advocate continued anticoagulation afterward. If there is some concern regarding continued anticoagulation more invasive studies could be performed in order to exclude supraventricular tachycardia. However, given the patient's comorbidities and absence of symptoms I think conservative approach would be best option. Present on Admission?: No History of Present Illness Reason for Consultation: Tachycardia Requesting Physician: Tracy Attending Physician: Michael Molina History of Present Illness The patient is an 78-year-old woman with a history of supraventricular tachycardia who overnight had some supraventricular tachycardia. Cardiology was consulted to evaluate her for supraventricular tachycardia. Patient was admitted for esophageal 80s. She recently been discharged after treatment of severe esophagitis but returned with similar symptoms. She is felt to have an improving clinical course and was tolerating a regular diet. It seems that last evening she was noted to have an elevated heart rate by the nursing staff. She was not on telemetry at that time. An EKG was obtained which suggested supraventricular tachycardia. The patient was asymptomatic. She is unaware of any palpitations. She has not report dizziness or lightheadedness. She has no symptoms of chest discomfort. She was transferred to the telemetry leach and was in a normal rhythm upon arrival. Over the course of the evening, however, she did develop another episode of SVT which appear to last for a couple of hours. Heart rate was fairly constant during that time. Again she was asymptomatic and unaware of any arrhythmia. In May of 2018 the patient had a similar evaluation. She was noted to have episodes of supraventricular tachycardia that were not symptomatic. The episodes were very brief in nature and conservative therapy was advised given her overall severe comorbidities. Allergies Allergy/AdvReac Type Severity Reaction Status Date / Time levofloxacin [From Levaquin] Allergy Unknown Unknown Unverified 12/31/18 03:29 Home Medications Home Medications Medication Instructions Recorded Confirmed Type amitriptyline 50 mg PO HS 06/14/18 12/31/18 History atorvastatin 40 mg PO HS 06/14/18 12/31/18 History cholecalciferol (vitamin D3) 2,000 unit PO QAM 06/14/18 12/31/18 History [Vitamin D3] cyanocobalamin (vitamin B-12) 1,000 mcg PO QAM 06/14/18 12/31/18 History [Vitamin B-12] gabapentin 1,900 mg PO BID 06/14/18 12/31/18 History glatiramer [Copaxone] 20 mg SUBCUT QAM 06/14/18 12/31/18 History lisinopril 20 mg PO QAM 06/14/18 12/31/18 History pantoprazole 40 mg PO BID #60 tab 12/12/18 12/31/18 Rx tramadol 50 mg tablet 50 mg PO Q6H #30 tab 12/25/18 12/31/18 Rx Patient History Medical History Urinary retention Constipation Fever Abnormal urinalysis SVT (supraventricular tachycardia) Paraplegia Lymphedema of left leg (Chronic) History of multiple sclerosis (Chronic) Multiple sclerosis Trigeminal neuralgia of left side of face (Resolved) Left-sided weakness (Acute) Family History Other Family history non-contributory Social History Preferred Language: Estonian Communication Ability: Effective Beliefs That Will Affect Care: None Current Living Situation: Alone Current Living Situation Comment: Home Health Feels Safe at Home: Yes Smoking Status: Unknown if ever smoked Hx Alcohol Use: No Hx Substance Use: No Review of Systems Review of Systems: All systems reviewed & are unremarkable except as noted in HPI & below She reports feeling well this morning. She has not been ambulatory for some time but occasion will set up in a chair at home. She has no pain currently. She is not experiencing shortness of breath. She denies any sense of palpitations. Her swelling is much improved. Physical Exam Physical Exam: She is alert and oriented x3. Mood affect appear normal. She answered all questions appropriately. HEENT: Sclerae are anicteric. Pupils are equal and reactive to light and accommodation. Extraocular movements were intact. Neuro: Cranial nerves intact Neck: Examination of the submandibular region did not reveal any significant lymphadenopathy. Carotids are palpable bilaterally and free of bruits on auscultation. There was no evidence of jugular venous distention. The thyroid was not enlarged. Lungs: Lungs are clear to auscultation bilaterally. There are no rales wheezes or rhonchi. She has normal respiratory effort without use of accessory muscles. There is normal pulmonary excursion. Cardiac: The rhythm was regular. S1 and S2 were normal. There are no murmurs on examination. The PMI was not markedly displaced on palpation. Abdomen: The abdomen was soft and nontender. Extremities: Patient has bilateral radial pulses that are equal in intensity. There is no evidence cyanosis or clubbing. She had significant edema in the left foot and leg which she reports is chronic. There is edema in the right leg as well Skin: There are no rashes noted on examination today. Results & Data Vital Signs (Past 12 Hours) Vital Signs Temp Pulse Pulse Resp BP BP Pulse Ox 01/07/19 16:00 74 01/07/19 15:50 36.7 C 89 20 150/85 H 97 01/07/19 10:52 36.6 C 67 20 139/80 98 01/07/19 08:25 145 H 110/82 01/07/19 08:00 67 01/07/19 07:37 37.1 C 138 H 20 156/103 H 94 Laboratory Results Abnormal Lab Results 01/07/19 01/07/19 01/07/19 07:21 07:21 07:22 WBC 5.40 RBC 3.49 L Hgb 10.6 L Hct 33.0 L MCV 94.6 MCH 30.4 MCHC 32.1 RDW Std Deviation 46.4 H RDW Coeff of Aparna 13.5 Plt Count 230 MPV 9.1 Immature Gran % (Auto) 0.2 Neut % (Auto) 50.0 Lymph % (Auto) 29.6 [place] % (Auto) 11.1 Eos % (Auto) 8.7 Baso % (Auto) 0.4 Immature Gran # (Auto) 0.01 Neut # (Auto) 2.70 Lymph # (Auto) 1.60 [place] # (Auto) 0.60 H Eos # (Auto) 0.47 Baso # (Auto) 0.02 Sodium Cancelled 145 Potassium Cancelled 3.6 Chloride Cancelled 114 H Carbon Dioxide Cancelled 25 Anion Gap Cancelled 6.0 BUN Cancelled 4 L Creatinine Cancelled 0.68 Est Cr Clr Drug Dosing Cancelled 85.2 Est GFR ( Amer) Cancelled 95.8 Est GFR (Non-Af Amer) Cancelled 82.6 BUN/Creatinine Ratio Cancelled 5.4 L Glucose Cancelled 95 Calcium Cancelled 8.9 Magnesium 1.6 L Troponin I 01/07/19 07:22 WBC RBC Hgb Hct MCV MCH MCHC RDW Std Deviation RDW Coeff of Aparna Plt Count MPV Immature Gran % (Auto) Neut % (Auto) Lymph % (Auto) [place] % (Auto) Eos % (Auto) Baso % (Auto) Immature Gran # (Auto) Neut # (Auto) Lymph # (Auto) [place] # (Auto) Eos # (Auto) Baso # (Auto) Sodium Potassium Chloride Carbon Dioxide Anion Gap BUN Creatinine Est Cr Clr Drug Dosing Est GFR ( Amer) Est GFR (Non-Af Amer) BUN/Creatinine Ratio Glucose Calcium Magnesium Troponin I 0.018 Diagnostic Findings Echocardiogram obtained in 05/2018 revealed mild LVH with preserved LV systolic function. She had mild RVH as well as some elevated pulmonary pressures. ECG Additional Comments: Baseline EKG demonstrates normal sinus rhythm and is essentially normal. EKG during tachycardia demonstrates SVT with nonspecific ST and T-wave changes.
[2019-01-07] MEDS: AMITRIPTYLINE HCL 50 MG TAB PO SCH (20:00)
[2019-01-07] MEDS: ATORVASTATIN 40 MG TAB PO SCH (20:11)
[2019-01-07] MEDS ORDERED: METOPROLOL TARTRATE 25 MG TAB PO SCH (21:00)
--- NOTE | 2019-01-07 22:27 | Hospitalist Progress Note ---
Date of Service January 07, 2019 Assessment & Plan (1) SVT (supraventricular tachycardia): Patient is having a new problem. Patient had been going in an out of SVT Will place on betablocker and will continue to monitor heart rate. consulted cardio. (2) Hypotension: sepsis on presentation resolved after it responded to volume resuscitation, suspect [place] cath associated uti poa, ESBL With ESBL will need at least 1 week of IV Rocephin antibiotics. Less that should be somewhere in and around January 07, patient lives home alone without caregivers Anemia of chronic disease remains stable. As patient remains in hospital, will continue antibiotics for a total of 10 days. (3) [place] grade C esophagitis: Recurrent symptoms of severe midepigastric and substernal burning-these have now resolved Resume diet Symptoms have resolved H&H is been stable Begin pantoprazole 40 mg IV in the ED, and continue daily. Famotidine 20 mg IV every 12 hours. Consult her cst Dr. Null he feels no intervention is needed continuing on acid suppressive therapy Medications have been switched to PO, will continue. (4) Multiple sclerosis: Multiple sclerosis/paraplegia- Continue Copaxone 20 mg subcu every morning (5) Paraplegia: MS/paraplegia-seems to be at her baseline Continue Copaxone 20 mg subcu every morning. (6) HTN (hypertension): Controlled with lisinopril (7) HLD (hyperlipidemia): Remains on atorvastatin (8) Vitamin B12 deficiency: Hold oral B12 supplement for now. (9) DVT (deep venous thrombosis): Given the patient's nonocclusive thrombus of the common femoral profunda femoral veins new from 12/12/2018 starting subcutaneous Lovenox at full dose cautiously given her history of recent esophagitis issues no reduction in her hemoglobin consideration of transition to attending inhibiting agent on discharge could be undertaken will continue lovenox. Spent 35 minutes in management of patient. Subjective Informed by nurse patient has been having intermittent SVT. Patient though denies any symptoms. Review of Systems Review of Systems: All systems reviewed & are unremarkable except as noted in HPI & below Physical Exam Physical Exam: The patient appeared well nourished and normally developed. Vital signs as documented. Head exam is unremarkable. normocephalic, atraumatic Neck is without jugular venous distension, thyromegaly, or lymphademopathy Lungs are clear to auscultation and percussion. Cardiac exam reveals Rhythm is regular. First and second heart sounds normal. Abdominal exam reveals normal bowel sounds, no masses, no organomegaly Extremities are mildly edematous left greater than right Neurologically she is awake alert appropriate, she has persistent lower extremity weakness which is her chronic condition no focal deficits Psychologically seems neither anxious or depressed Skin is warm Dry without bruises or lesions Results & Data Vital Signs (Past 12 Hours) Vital Signs Temp Pulse Pulse Resp BP Pulse Ox 01/07/19 19:10 36.7 C 94 H 16 162/84 H 95 01/07/19 16:00 74 01/07/19 15:50 36.7 C 89 20 150/85 H 97 01/07/19 10:52 36.6 C 67 20 139/80 98 PG Care Time/CCT Total # of Minutes Spent Total Time Spent with Patient: Total time spent is greater than 50% in coordination of care (as documented) at patient's floor/unit and/or counseling patient: (1) HLD (hyperlipidemia) Hyperlipidemia type: unspecified Qualified Code(s): E78.5 - Hyperlipidemia, unspecified (2) HTN (hypertension) Hypertension type: essential hypertension Qualified Code(s): I10 - Essential (primary) hypertension
[2019-01-08] MEDS: TRAMADOL HCL 50 MG TABLET PO SCH ×5 (01:18→23:36)
[2019-01-08] MEDS: SODIUM CHLORIDE 0.9% 1000ML 1,000 ML IV SCH ×2 (03:40→14:02)
[2019-01-08] MEDS: FAMOTIDINE 20 MG TAB PO SCH ×2 (05:18→17:51)
[2019-01-08] MEDS ORDERED: METOPROLOL TARTRATE 1 MG/ML VIAL IV STA (05:48)
[2019-01-08] MEDS ORDERED: METOPROLOL TARTRATE 1 MG/ML VIAL IV ONE (05:54)
[2019-01-08] MEDS: SUCRALFATE 1 GM/10 ML UDC PO SCH ×4 (07:58→20:54)
[2019-01-08] MEDS: ENOXAPARIN 100 MG/1ML SYR SQ SCH ×2 (07:58→20:55)
[2019-01-08] MEDS: PANTOprazole 40 MG TAB PO SCH ×2 (08:00→20:55)
[2019-01-08] MEDS: GABAPENTIN 600 MG TAB PO SCH ×2 (08:00→20:56)
[2019-01-08 08:02] LABS: Hematocrit (blood only) 32.2 % (37-47); Hemoglobin 10.3 g/dL (12.0-16.0); Mean Corpuscular Volume 93.9 fL (80-100); Platelet Count 242 K/uL (130-400); RDW Coefficient of Variation 13.6 % (11.5-14.5); RDW Standard Deviation 46.9 fL (36.4-46.3); Red Blood Count 3.43 M/uL (4.2-5.4); White Blood Count 5.07 K/uL (4.8-10.8)
[2019-01-08] MEDS: cefTRIAXone SODIUM 2,000 MG in DEXTROSE 5% 50 ML IV SCH (08:03)
[2019-01-08 08:33] LABS: BUN Creatinine Ratio 5.7 (10-20); Calcium 8.9 mg/dl (8.5-10.1); Creatinine Clr Calc Pharmacy 89.6 ml/min; Est GFR (African American) 96.7; Est GFR (Non-African American) 83.4; Potassium 3.4 mmol/L (3.5-5.1)
[2019-01-08] MEDS ORDERED: METOPROLOL TARTRATE 25 MG TAB PO SCH (09:00)
--- NOTE | 2019-01-08 17:01 | Cardiology Progress Note ---
Date of Service January 08, 2019 Assessment & Plan (1) SVT (supraventricular tachycardia): She continues to have episodes of asymptomatic SVT. She if cycles in and out of the SVT fairly rapidly. Again, the mechanism of this SVT is unknown. EKG would suggest more likely it is a flutter although it acts more like a micro reentrant SVT. I did discuss the option of adenosine with the patient today. I also discussed the option of catheter based therapy if we felt this was easily curable with ablation. However, she is skeptical as she has no notable symptoms and wished to defer any additional evaluation or treatment at this time. She wishes to Dr. her sons about options. I do believe she has been having these episodes at home. She was known to have this several months ago in the hospital and likely has episodes that are not documented when she has at home. This has not caused her any specific trouble. She is certainly not symptomatic. One could argue that no particular intervention is required in this situation although there may be a very small risk of tachycardia mediated cardiomyopathy or even thromboembolic events if this is atrial flutter. She had an element of bradycardia on metoprolol although again asymptomatic. I think we could try some diltiazem to see if this has a less profound effect on her resting heart rate. Subjective This afternoon the patient claims to be feeling well. She denies any sense of palpitations or tachycardia. She has not report any symptoms of dizziness or lightheadedness. No chest pain or breathing difficulty. Review of Systems Review of Systems: Per HPI Physical Exam Physical Exam: She is alert and oriented x3. Mood affect appear normal. She answered all questions appropriately. HEENT: Sclerae are anicteric. Pupils are equal and reactive to light and accommodation. Extraocular movements were intact. Neuro: Cranial nerves intact Lungs: Lungs are clear to auscultation bilaterally. There are no rales wheezes or rhonchi. She has normal respiratory effort without use of accessory muscles. There is normal pulmonary excursion. Cardiac: The rhythm was regular but rapid. S1 and S2 were normal. Skin: There are no rashes noted on examination today. Results & Data Vital Signs (Past 12 Hours) Vital Signs Temp Pulse Pulse Resp BP BP Pulse Ox 01/08/19 15:04 36.6 C 138 H 17 158/100 H 93 01/08/19 11:21 36.3 C L 65 20 149/79 H 94 01/08/19 08:00 36.6 C 72 18 150/81 H 97 01/08/19 07:40 121 H 01/08/19 05:59 128 H 145/89 H 01/08/19 05:58 128 H 145/89 H 01/08/19 05:26 127 H 139/92 Laboratory Results Abnormal Lab Results 01/08/19 01/08/19 07:13 07:13 WBC 5.07 RBC 3.43 L Hgb 10.3 L Hct 32.2 L MCV 93.9 MCH 30.0 MCHC 32.0 RDW Std Deviation 46.9 H RDW Coeff of Aparna 13.6 Plt Count 242 MPV 10.0 Sodium 146 H Potassium 3.4 L Chloride 115 H Carbon Dioxide 25 Anion Gap 6.0 BUN 4 L Creatinine 0.66 Est Cr Clr Drug Dosing 89.6 Est GFR ( Amer) 96.7 Est GFR (Non-Af Amer) 83.4 BUN/Creatinine Ratio 5.7 L Glucose 86 Calcium 8.9
[2019-01-08] MEDS: dilTIAZem HCL 30 MG TAB PO SCH ×2 (17:46→20:54)
[2019-01-08] MEDS: AMITRIPTYLINE HCL 50 MG TAB PO SCH (20:55)
[2019-01-08] MEDS: ATORVASTATIN 40 MG TAB PO SCH (20:56)
[2019-01-09] MEDS: TRAMADOL HCL 50 MG TABLET PO SCH ×4 (05:38→22:35)
[2019-01-09] MEDS: FAMOTIDINE 20 MG TAB PO SCH ×2 (05:39→16:35)
[2019-01-09 06:36] LABS: Basophils # (auto) 0.01 K/uL (0-0.2); Basophils % (auto) 0.2 %; Eosinophils # (auto) 0.51 K/uL (0-0.5); Eosinophils % (auto) 9.1 %; Hematocrit (blood only) 34.9 % (37-47); Hemoglobin 11.1 g/dL (12.0-16.0); Immature Granulocytes # (auto) 0.03 K/uL (0.00-0.02); Immature Granulocytes % (auto) 0.5 %; Lymphocytes # (auto) 1.73 K/uL (1.2-3.4); Mean Corpuscular Hgb Conc 31.8 g/dL (32-36); Mean Corpuscular Volume 94.8 fL (80-100); Mean Platelet Volume 9.7 fL (7.4-10.4); Monocytes % (auto) 10.8 %; Neutrophils % (auto) 48.4 %; Platelet Count 258 K/uL (130-400); RDW Coefficient of Variation 13.9 % (11.5-14.5); RDW Standard Deviation 48.1 fL (36.4-46.3); Red Blood Count 3.68 M/uL (4.2-5.4); White Blood Count 5.58 K/uL (4.8-10.8)
[2019-01-09 07:04] LABS: Est GFR (African American) 84.5; Est GFR (Non-African American) 72.9; Potassium 3.5 mmol/L (3.5-5.1)
[2019-01-09 07:05] LABS: BUN Creatinine Ratio 6.5 (10-20); Calcium 9.4 mg/dl (8.5-10.1); Creatinine Clr Calc Pharmacy 77.1 ml/min; Magnesium 1.7 mg/dl (1.8-2.4)
[2019-01-09] MEDS: ENOXAPARIN 100 MG/1ML SYR SQ SCH (08:16)
[2019-01-09] MEDS: SUCRALFATE 1 GM/10 ML UDC PO SCH ×4 (08:16→20:07)
[2019-01-09] MEDS: PANTOprazole 40 MG TAB PO SCH ×2 (08:18→20:05)
[2019-01-09] MEDS: LISINOPRIL 20 MG TAB PO SCH (08:18)
[2019-01-09] MEDS: dilTIAZem HCL 30 MG TAB PO SCH ×3 (08:18→16:33)
[2019-01-09] MEDS: GABAPENTIN 600 MG TAB PO SCH ×2 (08:19→20:06)
[2019-01-09] MEDS: cefTRIAXone SODIUM 2,000 MG in DEXTROSE 5% 50 ML IV SCH (08:30)
[2019-01-09] MEDS: MAGNESIUM SULFATE / D5W 1 GM/100 ML BAG IV SCH ×2 (11:13→12:52)
[2019-01-09] MEDS ORDERED: POTASSIUM CHLORIDE 10 MEQ TABCR PO ONE (11:15)
--- NOTE | 2019-01-09 17:58 | Cardiology Progress Note ---
Date of Service January 09, 2019 Assessment & Plan (1) SVT (supraventricular tachycardia): She did not have any episodes of her SVT during the course of today. She had some late last evening. She is not appear to have had any adverse effects from the diltiazem. I think we can increase the dose and monitor her pressures and heart rate. I did discuss other options with the patient regarding both diagnostic and therapeutic interventions. She seems relatively opposed to any aggressive treatment a problem which she does not appreciate or feel. I would recommend initiating her oral anticoagulation and continue her oral anticoagulation at discharge I would continue her diltiazem and switch her to a long-acting preparation at the time of discharge Will be away from the hospital for the next 2 days. If there are questions concerning this patient's care please contact the on-call bowling alley refinisher. Thank you Subjective Patient was feeling well today. She did not verbalize any specific complaints. No symptoms of dizziness, lightheadedness or palpitations. Review of Systems Review of Systems: Per HPI Physical Exam Physical Exam: She is alert and oriented x3. Mood affect appear normal. She answered all questions appropriately. HEENT: Sclerae are anicteric. Pupils are equal and reactive to light and accommodation. Extraocular movements were intact. Neuro: Cranial nerves intact Lungs: Lungs are clear to auscultation bilaterally. There are no rales wheezes or rhonchi. She has normal respiratory effort without use of accessory muscles. There is normal pulmonary excursion. Cardiac: The rhythm was regular. S1 and S2 were normal. There are no murmurs on examination. Results & Data Vital Signs (Past 12 Hours) Vital Signs Temp Pulse Pulse Resp BP Pulse Ox 01/09/19 15:21 36.7 C 80 17 153/82 H 92 01/09/19 11:58 36.5 C 62 18 158/74 H 92 01/09/19 09:00 81 01/09/19 07:00 36.6 C 74 18 157/75 H 94 Laboratory Results Abnormal Lab Results 01/09/19 01/09/19 06:07 06:07 WBC 5.58 RBC 3.68 L Hgb 11.1 L Hct 34.9 L MCV 94.8 MCH 30.2 MCHC 31.8 L RDW Std Deviation 48.1 H RDW Coeff of Aparna 13.9 Plt Count 258 MPV 9.7 Immature Gran % (Auto) 0.5 Neut % (Auto) 48.4 Lymph % (Auto) 31.0 [place] % (Auto) 10.8 Eos % (Auto) 9.1 Baso % (Auto) 0.2 Immature Gran # (Auto) 0.03 H Neut # (Auto) 2.70 Lymph # (Auto) 1.73 [place] # (Auto) 0.60 H Eos # (Auto) 0.51 H Baso # (Auto) 0.01 Sodium 146 H Potassium 3.5 Chloride 112 H Carbon Dioxide 27 Anion Gap 7.0 BUN 5 L Creatinine 0.77 Est Cr Clr Drug Dosing 77.1 Est GFR ( Amer) 84.5 Est GFR (Non-Af Amer) 72.9 BUN/Creatinine Ratio 6.5 L Glucose 92 Calcium 9.4 Magnesium 1.7 L ECG Additional Comments: Telemetry revealed only sinus rhythm today. SVT last evening for few hours.
[2019-01-09] MEDS: ACETAMINOPHEN 1000 MG/100 ML IV IV PRN (19:36)
[2019-01-09] MEDS: dilTIAZem HCl 60 MG TAB PO SCH (20:05)
[2019-01-09] MEDS: ATORVASTATIN 40 MG TAB PO SCH (20:07)
[2019-01-09] MEDS: AMITRIPTYLINE HCL 50 MG TAB PO SCH (20:07)
[2019-01-09] MEDS: APIXABAN 5 MG TABLET PO SCH (20:26)
--- NOTE | 2019-01-09 22:59 | Hospitalist Progress Note ---
Date of Service January 09, 2019 Assessment & Plan (1) SVT (supraventricular tachycardia): Patient is having a new problem. Patient had been going in an out of SVT Diltiazem will be increased to 60 mg PO TID Patient will be on Eliquis 10 mg PO BID for a week. First dose is tonight. Monitor has not shown continued SVT since 01/08 (2) Hypotension: sepsis on presentation resolved after it responded to volume resuscitation, suspect [place] cath associated uti poa, ESBL With ESBL will need at least 1 week of IV Rocephin antibiotics. Less that should be somewhere in and around January 07, patient lives home alone without caregivers Anemia of chronic disease remains stable. As patient remains in hospital, will continue antibiotics for a total of 10 days. (3) [place] grade C esophagitis: Recurrent symptoms of severe midepigastric and substernal burning-these have now resolved Resume diet Symptoms have resolved H&H is been stable Begin pantoprazole 40 mg IV in the ED, and continue daily. Famotidine 20 mg IV every 12 hours. Consult her continuous loft operator Dr. Null he feels no intervention is needed continuing on acid suppressive therapy Medications have been switched to PO, will continue. (4) Multiple sclerosis: Multiple sclerosis/paraplegia- Continue Copaxone 20 mg subcu every morning (5) Paraplegia: MS/paraplegia-seems to be at her baseline Continue Copaxone 20 mg subcu every morning. (6) HTN (hypertension): Controlled with lisinopril (7) HLD (hyperlipidemia): Remains on atorvastatin (8) Vitamin B12 deficiency: Hold oral B12 supplement for now. (9) DVT (deep venous thrombosis): Given the patient's nonocclusive thrombus of the common femoral profunda femoral veins new from 12/12/2018 starting subcutaneous Lovenox at full dose cautiously given her history of recent esophagitis issues no reduction in her hemoglobin consideration of transition to attending inhibiting agent on discharge could be undertaken Started eliquis. Spent 30 minutes in management of patient. Subjective Patient reports feeling well. Patient has no new complaints. Patient today is open to rehab. Review of Systems Review of Systems: All systems reviewed & are unremarkable except as noted in HPI & below Physical Exam Physical Exam: The patient appeared well nourished and normally developed. Vital signs as documented. Head exam is unremarkable. normocephalic, atraumatic Neck is without jugular venous distension, thyromegaly, or lymphademopathy Lungs are clear to auscultation and percussion. Cardiac exam reveals Rhythm is regular. First and second heart sounds normal. Abdominal exam reveals normal bowel sounds, no masses, no organomegaly Extremities are mildly edematous left greater than right Neurologically she is awake alert appropriate, she has persistent lower extremity weakness which is her chronic condition no focal deficits Psychologically seems neither anxious or depressed Skin is warm Dry without bruises or lesions Results & Data Vital Signs (Past 12 Hours) Vital Signs Temp Pulse Resp BP Pulse Ox 01/09/19 18:57 36.6 C 90 20 138/78 94 01/09/19 15:21 36.7 C 80 17 153/82 H 92 01/09/19 11:58 36.5 C 62 18 158/74 H 92 PG Care Time/CCT Total # of Minutes Spent Total Time Spent with Patient: Total time spent is greater than 50% in coordination of care (as documented) at patient's floor/unit and/or counseling patient: (1) HTN (hypertension) Hypertension type: essential hypertension Qualified Code(s): I10 - Essential (primary) hypertension (2) HLD (hyperlipidemia) Hyperlipidemia type: unspecified Qualified Code(s): E78.5 - Hyperlipidemia, unspecified
--- NOTE | 2019-01-09 22:59 | Hospitalist Progress Note ---
Date of Service January 08, 2019 Assessment & Plan (1) SVT (supraventricular tachycardia): Patient is having a new problem. Patient had been going in an out of SVT Diltiazem will be started at 30 mg PO TID to replace Beta blockerl as patient has been having episodes of bradycardia. Even in these episodes of bradycardia, patient has been asymptomatic. Monitor has not shown continued SVT since 01/08 (2) Hypotension: sepsis on presentation resolved after it responded to volume resuscitation, suspect [place] cath associated uti poa, ESBL With ESBL will need at least 1 week of IV Rocephin antibiotics. Less that should be somewhere in and around January 07, patient lives home alone without caregivers Anemia of chronic disease remains stable. As patient remains in hospital, will continue antibiotics for a total of 10 days. (3) [place] grade C esophagitis: Recurrent symptoms of severe midepigastric and substernal burning-these have now resolved Resume diet Symptoms have resolved H&H is been stable Begin pantoprazole 40 mg IV in the ED, and continue daily. Famotidine 20 mg IV every 12 hours. Consult her neuropathologist Dr. Null he feels no intervention is needed continuing on acid suppressive therapy Medications have been switched to PO, will continue. (4) Multiple sclerosis: Multiple sclerosis/paraplegia- Continue Copaxone 20 mg subcu every morning (5) Paraplegia: MS/paraplegia-seems to be at her baseline Continue Copaxone 20 mg subcu every morning. (6) HTN (hypertension): Controlled with lisinopril (7) HLD (hyperlipidemia): Remains on atorvastatin (8) Vitamin B12 deficiency: Hold oral B12 supplement for now. (9) DVT (deep venous thrombosis): Given the patient's nonocclusive thrombus of the common femoral profunda femoral veins new from 12/12/2018 starting subcutaneous Lovenox at full dose cautiously given her history of recent esophagitis issues no reduction in her hemoglobin consideration of transition to attending inhibiting agent on discharge could be undertaken will continue lovenox. Spent 35 minutes in management of patient. Subjective Despite having SVT shown on moniotr, patient is asymptomatic. Patient has no new complaints Review of Systems Review of Systems: All systems reviewed & are unremarkable except as noted in HPI & below Physical Exam Physical Exam: The patient appeared well nourished and normally developed. Vital signs as documented. Head exam is unremarkable. normocephalic, atraumatic Neck is without jugular venous distension, thyromegaly, or lymphademopathy Lungs are clear to auscultation and percussion. Cardiac exam reveals Rhythm is regular. First and second heart sounds normal. Abdominal exam reveals normal bowel sounds, no masses, no organomegaly Extremities are mildly edematous left greater than right Neurologically she is awake alert appropriate, she has persistent lower extremity weakness which is her chronic condition no focal deficits Psychologically seems neither anxious or depressed Skin is warm Dry without bruises or lesions Results & Data Vital Signs (Past 12 Hours) Vital Signs Temp Pulse Resp BP Pulse Ox 01/09/19 18:57 36.6 C 90 20 138/78 94 01/09/19 15:21 36.7 C 80 17 153/82 H 92 01/09/19 11:58 36.5 C 62 18 158/74 H 92 PG Care Time/CCT Total # of Minutes Spent Total Time Spent with Patient: Total time spent is greater than 50% in coordin ation of care (as documented) at patient's floor/unit and/or counseling patient: (1) HTN (hypertension) Hypertension type: essential hypertension Qualified Code(s): I10 - Essential (primary) hypertension (2) HLD (hyperlipidemia) Hyperlipidemia type: unspecified Qualified Code(s): E78.5 - Hyperlipidemia, unspecified
[2019-01-10] MEDS: TRAMADOL HCL 50 MG TABLET PO SCH ×4 (06:18→23:16)
[2019-01-10] MEDS: FAMOTIDINE 20 MG TAB PO SCH ×2 (06:33→16:31)
[2019-01-10] MEDS: GABAPENTIN 600 MG TAB PO SCH ×2 (07:18→20:13)
[2019-01-10] MEDS: LISINOPRIL 20 MG TAB PO SCH (07:19)
[2019-01-10] MEDS: APIXABAN 5 MG TABLET PO SCH ×2 (07:19→20:14)
[2019-01-10] MEDS: PANTOprazole 40 MG TAB PO SCH ×2 (07:19→20:14)
[2019-01-10] MEDS: dilTIAZem HCl 60 MG TAB PO SCH ×3 (07:20→20:15)
[2019-01-10] MEDS: SUCRALFATE 1 GM/10 ML UDC PO SCH ×4 (07:20→20:12)
[2019-01-10] MEDS: cefTRIAXone SODIUM 2,000 MG in DEXTROSE 5% 50 ML IV SCH (07:45)
[2019-01-10 08:13] LABS: Hematocrit (blood only) 35.3 % (37-47); Hemoglobin 11.2 g/dL (12.0-16.0); Mean Corpuscular Hgb Conc 31.7 g/dL (32-36); Mean Corpuscular Volume 94.9 fL (80-100); Mean Platelet Volume 9.8 fL (7.4-10.4); Platelet Count 262 K/uL (130-400); RDW Coefficient of Variation 13.9 % (11.5-14.5); RDW Standard Deviation 47.8 fL (36.4-46.3); Red Blood Count 3.72 M/uL (4.2-5.4); White Blood Count 6.33 K/uL (4.8-10.8)
[2019-01-10 08:39] LABS: BUN Creatinine Ratio 6.3 (10-20); Calcium 9.6 mg/dl (8.5-10.1); Creatinine Clr Calc Pharmacy 83.9 ml/min; Est GFR (African American) 93.2; Est GFR (Non-African American) 80.4; Potassium 3.6 mmol/L (3.5-5.1)
[2019-01-10] MEDS: AMITRIPTYLINE HCL 50 MG TAB PO SCH (20:12)
[2019-01-10] MEDS: ATORVASTATIN 40 MG TAB PO SCH (20:13)
--- NOTE | 2019-01-10 23:57 | Hospitalist Progress Note ---
Date of Service January 10, 2019 Assessment & Plan (1) SVT (supraventricular tachycardia): Patient is having a new problem. Patient had been going in an out of SVT Yesterday, diltiazem was increased to 60 mg PO TID will conitnue dose. Patient has been started on Eliquis 10 mg PO BID. Monitor has not shown continued SVT since 01/08 (2) Hypotension: sepsis on presentation resolved after it responded to volume resuscitation, suspect [place] cath associated uti poa, ESBL With ESBL will need at least 1 week of IV Rocephin antibiotics. Less that should be somewhere in and around January 07, patient lives home alone without caregivers Anemia of chronic disease remains stable. As patient remains in hospital, will continue antibiotics for a total of 10 days. (3) [place] grade C esophagitis: Recurrent symptoms of severe midepigastric and substernal burning-these have now resolved Resume diet Symptoms have resolved H&H is been stable Begin pantoprazole 40 mg IV in the ED, and continue daily. Famotidine 20 mg IV every 12 hours. Consult her kitchen food server Dr. Null he feels no intervention is needed continuing on acid suppressive therapy Medications have been switched to PO, will continue. (4) Multiple sclerosis: Multiple sclerosis/paraplegia- Continue Copaxone 20 mg subcu every morning (5) Paraplegia: MS/paraplegia-seems to be at her baseline Continue Copaxone 20 mg subcu every morning. (6) HTN (hypertension): Controlled with lisinopril (7) HLD (hyperlipidemia): Remains on atorvastatin (8) Vitamin B12 deficiency: Hold oral B12 supplement for now. (9) DVT (deep venous thrombosis): Given the patient's nonocclusive thrombus of the common femoral profunda femoral veins new from 12/12/2018 starting subcutaneous Lovenox at full dose cautiously given her history of recent esophagitis issues no reduction in her hemoglobin consideration of transition to attending inhibiting agent on discharge could be undertaken Started eliquis. Spent 26 minutes in management of patient. Subjective Patient reports feeling well. Patient has no new complaints today. Review of Systems Review of Systems: All systems reviewed & are unremarkable except as noted in HPI & below Physical Exam Physical Exam: The patient appeared well nourished and normally developed. Vital signs as documented. Head exam is unremarkable. normocephalic, atraumatic Neck is without jugular venous distension, thyromegaly, or lymphademopathy Lungs are clear to auscultation and percussion. Cardiac exam reveals Rhythm is regular. First and second heart sounds normal. Abdominal exam reveals normal bowel sounds, no masses, no organomegaly Extremities are mildly edematous left greater than right Neurologically she is awake alert appropriate, she has persistent lower extrem ity weakness which is her chronic condition no focal deficits Psychologically seems neither anxious or depressed Skin is warm Dry without bruises or lesions Results & Data Vital Signs (Past 12 Hours) Vital Signs Temp Pulse Resp BP Pulse Ox 01/10/19 18:42 36.7 C 88 18 121/82 93 01/10/19 15:52 77 133/77 01/10/19 15:07 36.8 C 88 18 171/77 H 93 PG Care Time/CCT Total # of Minutes Spent Total Time Spent with Patient: Total time spent is greater than 50% in coordination of care (as documented) at patient's floor/unit and/or counseling patient: (1) HLD (hyperlipidemia) Hyperlipidemia type: unspecified Qualified Code(s): E78.5 - Hyperlipidemia, unspecified (2) HTN (hypertension) Hypertension type: essential hypertension Qualified Code(s): I10 - Essential (primary) hypertension
[2019-01-11] MEDS: TRAMADOL HCL 50 MG TABLET PO SCH ×4 (05:44→19:32)
[2019-01-11] MEDS: FAMOTIDINE 20 MG TAB PO SCH ×2 (06:21→16:48)
[2019-01-11] MEDS: SUCRALFATE 1 GM/10 ML UDC PO SCH ×4 (08:01→19:32)
[2019-01-11] MEDS: dilTIAZem HCl 60 MG TAB PO SCH ×3 (08:03→21:02)
[2019-01-11] MEDS: APIXABAN 5 MG TABLET PO SCH ×2 (08:04→21:03)
[2019-01-11] MEDS: LISINOPRIL 20 MG TAB PO SCH (08:04)
[2019-01-11] MEDS: GABAPENTIN 600 MG TAB PO SCH ×2 (08:04→21:04)
[2019-01-11] MEDS: PANTOprazole 40 MG TAB PO SCH ×2 (08:05→21:04)
[2019-01-11] MEDS: cefTRIAXone SODIUM 2,000 MG in DEXTROSE 5% 50 ML IV SCH (08:08)
[2019-01-11] MEDS: ACETAMINOPHEN 1000 MG/100 ML IV IV PRN (09:05)
[2019-01-11] MEDS ORDERED: GABAPENTIN 300 MG CAP PO ONE (17:30)
[2019-01-11] MEDS ORDERED: GABAPENTIN 300 MG CAP PO SCH (21:00)
[2019-01-11] MEDS: ATORVASTATIN 40 MG TAB PO SCH (21:03)
[2019-01-11] MEDS: AMITRIPTYLINE HCL 50 MG TAB PO SCH (21:03)
--- NOTE | 2019-01-11 23:54 | Hospitalist Progress Note ---
Date of Service January 11, 2019 Assessment & Plan (1) SVT (supraventricular tachycardia): Patient is having a new problem. Patient had been going in an out of SVT Initally placed on beta michelle, but switched to diltiazem due to bradycardia. Patient is having short episodes of bradycardia on higher dose of diltiazem, but has not had any episodes of SVT. consulted cardio. Await further input on Saturday. (2) Hypotension: sepsis on presentation resolved after it responded to volume resuscitation, suspect [place] cath associated uti poa, ESBL With ESBL will need at least 1 week of IV Rocephin antibiotics. Less that should be somewhere in and around January 07, patient lives home alone without caregivers Anemia of chronic disease remains stable. As patient remains in hospital, will continue antibiotics for a total of 10 days. Complete on 01/11 (3) [place] grade C esophagitis: Recurrent symptoms of severe midepigastric and substernal burning-these have now resolved Resume diet Symptoms have resolved H&H is been stable Begin pantoprazole 40 mg IV in the ED, and continue daily. Famotidine 20 mg IV every 12 hours. Consult her fretted instrument maker hand Dr. Null he feels no intervention is needed continuing on acid suppressive therapy Medications have been switched to PO, will continue. (4) Multiple sclerosis: Multiple sclerosis/paraplegia- Continue Copaxone 20 mg subcu every morning (5) Paraplegia: MS/paraplegia-seems to be at her baseline Continue Copaxone 20 mg subcu every morning. (6) HTN (hypertension): Controlled with lisinopril (7) HLD (hyperlipidemia): Remains on atorvastatin (8) Vitamin B12 deficiency: Hold oral B12 supplement for now. (9) Trigeminal neuralgia of left side of face: will add additional dose of neurontin 300 mg PO TID to her 1200 mg po BID. Her lower in house dose is likely explaining her flair up. Anticipate this to improve in next 12 hours. (10) DVT (deep venous thrombosis): Given the patient's nonocclusive thrombus of the common femoral profunda femoral veins new from 12/12/2018 starting subcutaneous Lovenox at full dose cautiously given her history of recent esophagitis issues no reduction in her hemoglobin consideration of transition to attending inhibiting agent on discharge could be undertaken will continue lovenox. Spent 35 minutes in management of patient. Anticipate discharge Saturday or Saturday to rehab. Subjective Initially patient reports no new symptoms. On heart monitor, patient has had episodes of bradycardia. HR in high 40s and 50s. When this has occurred, patient has been asymptomatic however. At around 1700, patient began complaining of trigeminal neuralgia (sharp) pain on her left face. This is documented in her outpatient records: (takes higher dose of neurontin as outpatient) Review of Systems Review of Systems: ROS: No significant distress No double vision blurry vision No problems with speech or swallowing No palpitations, chest pain or pressure No Wheezing or breathing issues No abdominal pain nausea vomiting diarrhea changes in appetite or weight No burning urine urine frequency or changes in color No focal joint pain or muscle pain No skin rashes or oral lesions No unusual bruising or bleeding No focused back pain persistent weakness and some swelling to LE No changes in memory or confusion Physical Exam Physical Exam: The patient appeared well nourished and normally developed. Vital signs as documented. Head exam is unremarkable. normocephalic, atraumatic Neck is without jugular venous distension, thyromegaly, or lymphademopathy Lungs are clear to auscultation and percussion. Cardiac exam reveals Rhythm is regular. First and second heart sounds normal. Abdominal exam reveals normal bowel sounds, no masses, no organomegaly Extremities are mildly edematous left greater than right Neurologically she is awake alert appropriate, she has persistent lower extremity weakness which is her chronic condition no focal deficits Psychologically seems neither anxious or depressed Skin is warm Dry without bruises or lesions Results & Data Vital Signs (Past 12 Hours) Vital Signs Temp Pulse Resp BP Pulse Ox 01/11/19 23:00 36.9 C 72 17 127/72 91 01/11/19 18:37 36.7 C 77 18 165/83 H 93 01/11/19 15:00 36.5 C 74 18 138/62 95 PG Care Time/CCT Total # of Minutes Spent Total Time Spent with Patient: Total time spent is greater than 50% in coordination of care (as documented) at patient's floor/unit and/or counseling patient: (1) HLD (hyperlipidemia) Hyperlipidemia type: unspecified Qualified Code(s): E78.5 - Hyperlipidemia, unspecified (2) HTN (hypertension) Hypertension type: essential hypertension Qualified Code(s): I10 - Essential (primary) hypertension
[2019-01-12] MEDS: TRAMADOL HCL 50 MG TABLET PO SCH ×4 (05:49→23:26)
[2019-01-12] MEDS: FAMOTIDINE 20 MG TAB PO SCH ×2 (05:49→16:30)
[2019-01-12] MEDS: SUCRALFATE 1 GM/10 ML UDC PO SCH ×4 (05:50→20:22)
[2019-01-12] MEDS: dilTIAZem HCl 60 MG TAB PO SCH ×4 (08:06→20:22)
[2019-01-12] MEDS: cefTRIAXone SODIUM 2,000 MG in DEXTROSE 5% 50 ML IV SCH (08:06)
[2019-01-12] MEDS: GABAPENTIN 300 MG CAP PO SCH ×3 (08:07→20:23)
[2019-01-12] MEDS: LISINOPRIL 20 MG TAB PO SCH (08:07)
[2019-01-12] MEDS: APIXABAN 5 MG TABLET PO SCH ×2 (08:07→20:23)
[2019-01-12] MEDS: GABAPENTIN 600 MG TAB PO SCH ×2 (08:07→20:23)
[2019-01-12] MEDS: PANTOprazole 40 MG TAB PO SCH ×2 (08:08→20:23)
--- NOTE | 2019-01-12 13:48 | Hospitalist Progress Note ---
Date of Service January 12, 2019 Assessment & Plan (1) Confusion: On 01/12, she had some delusions (believing people were standing behind the bathroom door) and confusion (AAOx1-2). Per prior provider, this was new for her. - Ddx includes hospital delirium, infection, medications. - Will not retest urine unless we have fever, leukocytosis, or other signs of sepsis as she just finished antibiotics and her chronic [place] will always show colonization. - Will discuss with neurology re: glatiramer - Has not been on it since admission. Last seen by Dr. Reese in 2017. (2) SVT (supraventricular tachycardia): On 01/07, patient had episode of SVT. Then went into and out of it over the course of several days. - Initially placed on beta michelle, but switched to diltiazem due to bradycardia. - By 01/12, HR was stable in the 60-60 range. - Continue diltiazem 60mg PO TID - Will convert to diltiazem long-acting tomorrow AM (3) Hypotension: Due to sepsis on presentation which resolved after volume resuscitation. - Likely due to catheter-associated UTI. - Urine cx on 12/31 growing E. coli; finished course of ceftriaxone on 01/12 - Monitor BP (4) [place] grade C esophagitis: On presentation, she had recurrent symptoms of severe midepigastric and substernal burning. This has resolved while in the hospital. - Consulted her fisher weir Dr. Null he feels no intervention is needed continuing on acid suppressive therapy. - On PPI and H2 michelle PO; continue (5) Multiple sclerosis: Long-standing - Is on copaxone 20 mg subcu every morning; however, she has not been on it since admission as it is non-formulary and no one has brought it in. - Will discuss with neurology re: possible effects of missing her medication. (6) Paraplegia: Due to MS. Seems to be at her baseline. - See above (7) HTN (hypertension): BP has been high-normal while inpatient with BP up to 170/80. - Continue lisinopril - Monitor BP (8) HLD (hyperlipidemia): - Remains on atorvastatin (9) Vitamin B12 deficiency: No B12 levels that I can find in or outpatient. - Check B12 - B12 held on admission for unclear reason - Hold for now until level back. (10) Trigeminal neuralgia of left side of face: Per outpatient neurology notes from 2017, it reports she had gamma knife for her trigeminal neuralgia and hadn't had any issues since. - Had a flare in the hospital and additional dose of gabapentin 300 mg PO TID was adde to her home 1200 mg BID dosing. - By 01/12, did not report further neuralgia pain (11) DVT (deep venous thrombosis): LE Doppler on 01/02 showed non-occlusive DVTs in the left leg. Initially started on Lovenox; transitioned to apixaban on 01/09. - Continue apixaban at 10mg PO BID; transition to 5mg PO BID on 01/16 - Monitor hemoglobin Subjective Patient is somewhat confused and reports that she is being laughed at by people in the bathroom. She otherwise has no complaints. Review of Systems Review of Systems: All systems reviewed & are unremarkable except as noted in HPI & below Physical Exam Constitutional: WD/WN, vitals as above Eyes: EOM intact bilaterally; no conjunctival abnormality ENMT: external ear and nose normal, oropharynx normal Neck: trachea midline, no thyromegaly normal visual inspection Respiratory: normal respiratory effort, lungs clear to auscultation no respiratory distress Cardiovascular: RRR, no murmur, no edema Gastrointestinal (Abdomen): Inspection/Auscultation: abdomen normal to inspection; abdomen not distended Musculoskeletal: no cyanosis or clubbing, extremities motor strength 5/5 Skin: no rashes, warm and dry Neurologic: moves all extremities and awake Psychiatric: Orientation: alert, oriented to person and cooperative Affect: + irritable affect Mood: + irritable mood Results & Data Vital Signs (Past 12 Hours) Vital Signs Temp Pulse Resp BP Pulse Ox 01/12/19 11:28 36.7 C 66 19 165/78 H 90 01/12/19 07:40 36.7 C 84 20 151/84 H 91 01/12/19 04:00 36.6 C 72 20 150/79 H 99 PG Care Time/CCT Total # of Minutes Spent Total Time Spent with Patient: Total time spent is greater than 50% in coordinat ion of care (as documented) at patient's floor/unit and/or counseling patient: (1) HTN (hypertension) Hypertension type: essential hypertension Qualified Code(s): I10 - Essential (primary) hypertension (2) HLD (hyperlipidemia) Hyperlipidemia type: unspecified Qualified Code(s): E78.5 - Hyperlipidemia, unspecified
[2019-01-12 14:39] LABS: Basophils # (auto) 0.02 K/uL (0-0.2); Basophils % (auto) 0.3 %; Eosinophils # (auto) 0.41 K/uL (0-0.5); Eosinophils % (auto) 6.2 %; Hemoglobin 11.4 g/dL (12.0-16.0); Immature Granulocytes # (auto) 0.02 K/uL (0.00-0.02); Immature Granulocytes % (auto) 0.3 %; Lymphocytes # (auto) 1.97 K/uL (1.2-3.4); Lymphocytes % (auto) 29.8 %; Mean Corpuscular Hgb Conc 31.7 g/dL (32-36); Mean Corpuscular Volume 96.3 fL (80-100); Mean Platelet Volume 9.3 fL (7.4-10.4); Monocytes # (auto) 0.84 K/uL (0.11-0.59); Monocytes % (auto) 12.7 %; Neutrophils # (auto) 3.36 K/uL (1.4-6.5); Neutrophils % (auto) 50.7 %; Platelet Count 276 K/uL (130-400); RDW Coefficient of Variation 14.3 % (11.5-14.5); RDW Standard Deviation 49.8 fL (36.4-46.3); Red Blood Count 3.74 M/uL (4.2-5.4); White Blood Count 6.62 K/uL (4.8-10.8)
[2019-01-12 14:58] LABS: Albumin Level 2.9 gm/dl (3.4-5.0); BUN Creatinine Ratio 7.1 (10-20); Calcium 9.1 mg/dl (8.5-10.1); Creatinine Clr Calc Pharmacy 75.6 ml/min; Est GFR (African American) 81.9; Est GFR (Non-African American) 70.7; Magnesium 1.8 mg/dl (1.8-2.4); Potassium 3.3 mmol/L (3.5-5.1)
[2019-01-12 15:01] LABS: Albumin Globulin Ratio 0.8 (0.9-2); Bilirubin,Total 0.2 mg/dl (0.2-1); Globulin 3.6 gm/dl (2.5-4.0); Phosphorus 2.5 mg/dl (2.5-4.9); Total Protein 6.5 gm/dl (6.4-8.2)
--- NOTE | 2019-01-12 15:10 | XRay Report ---
XR chest 1V portable CLINICAL HISTORY: 78 years-old Female presenting with Low O2. TECHNIQUE: Portable upright AP view of the chest was obtained. COMPARISON: 12/31/2018. FINDINGS: Atherosclerosis of the aortic arch. Cardiac silhouette enlarged. Perihilar opacities in the right mid to lower lung. Elevation of the left hemidiaphragm. Asymmetric radiolucency of the left lung. This m ay in part relate to slight rotation of the patient. No large effusion or pneumothorax. Degenerative changes of the spine. External leads project over the left upper quadrant. IMPRESSION: 1. Vague opacity in the perihilar regions of the right mid to lower lung may represent vascular prom inence or a focal infiltrate, atelectasis not excluded. 2. Cardiac megaly. 3. Apparent asymmetric radiolucency of the left lung may relate to differing overlying soft tissues. The appearance is similar to prior. Electronically signed by: Sanjeev Miller M.D. 01/12/2019 3:08 PM
[2019-01-12] MEDS ORDERED: POTASSIUM CHLORIDE PWD 20 MEQ PACK PO STA (15:50)
[2019-01-12] MEDS: AMITRIPTYLINE HCL 50 MG TAB PO SCH (20:23)
[2019-01-12] MEDS: ATORVASTATIN 40 MG TAB PO SCH (20:23)
[2019-01-13] MEDS: FAMOTIDINE 20 MG TAB PO SCH (05:55)
[2019-01-13] MEDS: TRAMADOL HCL 50 MG TABLET PO SCH ×2 (05:55→09:59)
[2019-01-13] MEDS: SUCRALFATE 1 GM/10 ML UDC PO SCH ×2 (09:57→11:52)
[2019-01-13] MEDS: GABAPENTIN 600 MG TAB PO SCH (09:57)
[2019-01-13] MEDS: LISINOPRIL 20 MG TAB PO SCH (09:58)
[2019-01-13] MEDS: GABAPENTIN 300 MG CAP PO SCH ×2 (09:58→13:53)
[2019-01-13] MEDS: APIXABAN 5 MG TABLET PO SCH (09:58)
[2019-01-13] MEDS: dilTIAZem HCl 60 MG TAB PO SCH ×2 (09:59→13:17)
[2019-01-13] MEDS: PANTOprazole 40 MG TAB PO SCH (10:00)
[2019-01-13] MEDS ORDERED: dilTIAZem HCL 180 MG CAPCR PO STA (13:22)
--- NOTE | 2019-01-13 17:05 | Discharge Summary ---
Date of Service January 13, 2019 Admission HPI Per Admitting Provider The patient is a 78-year-old female most recently admitted from 12/10-12/13 for severe esophageal pain, and was diagnosed with grade C esophagitis secondary to NSAID use. NSAIDs were discontinued, and patient was discharged on pantoprazole 40 mg p.o. twice daily. She was also advised to limit alcohol, caffeine, spicy foods and fried foods. She reports that she has been compliant with taking her medications and diet, and has been doing well since her discharge on 12/13, until last evening, when her symptoms recurred similarly to before. Principal Diagnosis UTI Discharge Exam Constitutional WD/WN, vitals as above Eyes EOM intact bilaterally; no conjunctival abnormality ENMT external ear and nose normal, oropharynx normal Neck trachea midline, no thyromegaly normal visual inspection Respiratory normal respiratory effort, lungs clear to auscultation no respiratory distress Cardiovascular RRR, no murmur, no edema Gastrointestinal (Abdomen) Inspection/Auscultation: abdomen normal to inspection; abdomen not distended Musculoskeletal no cyanosis or clubbing, extremities motor strength 5/5 Skin no rashes, warm and dry Neurologic moves all extremities and awake Psychiatric Orientation: alert, oriented to person and cooperative Affect: + irritable affect Mood: + irritable mood Discharge Data Allergies Allergy/AdvReac Type Severity Reaction Status Date / Time levofloxacin [From Levaquin] Allergy Unknown Unknown Unverified 12/31/18 03:29 Consultations 12/31/18 06:21 Consult Gastroenterology Stat 01/07/19 08:16 Consult Cardiology Routine Ordered Studies 01/02/19 09:56 US venous doppler LE Routine Hospital Course (1) Confusion: On 01/12, she had some delusions (believing people were standing behind the bathroom door) and confusion (AAOx1-2). Per prior provider, this was new for her. - Ddx included hospital delirium, infection, medications. - All infectious work-up was negative (CXR, labs), labs normal. By 01/13, her mental status was much improved. Discharged with close follow up with her PCP at [facility]. (2) SVT (supraventricular tachycardia): On 01/07, patient had episode of SVT. Then went into and out of it over the course of several days. - Initially placed on beta michelle, but switched to diltiazem due to bradycardia. - By 01/12, HR was stable in the 60-80 range. - Converted to diltiazem CD 180mg on discharge (3) Hypotension: Due to sepsis on presentation which resolved after volume resuscitation. - Likely due to catheter-associated UTI. - Urine cx on 12/31 growing E. coli; finished course of ceftriaxone on 01/12 - Monitor BP - Stable on discharge. (4) [place] grade C esophagitis: On presentation, she had recurrent symptoms of severe midepigastric and substernal burning. This has resolved while in the hospital. 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 - On PPI and H2 michelle PO; continued on discharge. (5) Multiple sclerosis: Long-standing - Is on copaxone 20 mg subcu every morning; however, she has not been on it since admission as it is non-formulary and no one has brought it in. - Discussed with neurology re: possible effects of missing her medication -> No major side effects of stopping, but should restart as soon as able. (6) Paraplegia: Due to MS. Seems to be at her baseline. - See above (7) HTN (hypertension): BP has been high-normal while inpatient with BP up to 170/80. - Continue lisinopril - Monitor BP (8) HLD (hyperlipidemia): - Remains on atorvastatin (9) Vitamin B12 deficiency: No B12 levels that I can find in or outpatient. - B12 held on admission for unclear reason - Restarted on discharge. (10) Trigeminal neuralgia of left side of face: Per outpatient neurology notes from 2017, it reports she had gamma knife for her trigeminal neuralgia and hadn't had any issues since. - Had a flare in the hospital and additional dose of gabapentin 300 mg PO TID was adde to her home 1200 mg BID dosing. - By 01/12, did not report further neuralgia pain -> Discharged on normal dosing. (11) DVT (deep venous thrombosis): LE Doppler on 01/02 showed non-occlusive DVTs in the left leg. Initially started on Lovenox; transitioned to apixaban on 01/09. - Continue apixaban at 10mg PO BID; transition to 5mg PO BID on 01/16 - Monitor hemoglobin Total Time Total Time Spent Total Time Spent (In Minutes): 35 Discharge Plan Discharge Items Patient Disposition: Transfer [facility] Reason For Visit: GRADE C ESOPHAGITIS, HYPOTENSION Discharge Diagnosis: Catheter-associated UTI Discharge Goals: Diagnostic testing and Improve disease control Activity: Resume your previous activity Non-emergency contact: Primary Care Provider and Neurologist Call non-emergency contact if: your symptoms worsen and your pain is not controlled Follow-up/Referrals: Luis Null, [Physician] - (Please see Dr. Null in 2-4 weeks for follow up of your esophagitis.) Naun Alvarez III, MD [Primary Care Provider] - 01/20/19 11:00 am (There are no appointments available with Dr. Alvarez at this time. A follow up appointment was made with Taya Jiménez NP, in the same office, on SaturdayJanuary 20 at 11:00am. If you have any questions or need to rechedule, please call the office at [phone].) Sue Reese MD [Physician] - (Please see Dr. Reese for your MS follow up.) Diet: Regular Addtl Provider Instructions: Please continue the glatiramer for your MS. You should take your apixaban at 10mg until 01/16, then switch to 5mg PO BID. Prescriptions: New sucralfate 100 mg/mL Suspension 10 ml PO 0700,1100,1600,2000 Qty: 1 RF: 0 famotidine 20 mg Tablet 20 mg PO BID@0600,1800 Qty: 1 RF: 0 Eliquis 5 mg Tablet 10 mg PO BID Qty: 1 RF: 0 diltiazem HCl [DILT-XR] 180 mg capsule,ext.rel 24h degradable 180 mg PO DAILY Qty: 1 RF: 0 Continued tramadol 50 mg tablet 50 mg PO Q6H Qty: 30 RF: 0 amitriptyline 50 mg Tablet 50 mg PO HS RF: 0 atorvastatin 40 mg Tablet 40 mg PO HS RF: 0 cholecalciferol (vitamin D3) [Vitamin D3] 2,000 unit Tablet 2,000 unit PO QAM RF: 0 cyanocobalamin (vitamin B-12) [Vitamin B-12] 1,000 mcg Tablet 1,000 mcg PO QAM RF: 0 glatiramer [Copaxone] 20 mg/mL Syringe 20 mg SUBCUT QAM RF: 0 lisinopril 20 mg Tablet 20 mg PO QAM RF: 0 pantoprazole 40 mg Tablet,Delayed Release (Dr/Ec) 40 mg PO BID Qty: 60 RF: 2 Changed gabapentin 600 mg Tablet Extended Release 24 Hr 1,200 mg PO BID Qty: 0 RF: 0 Stand-Alone Forms: [facility] Discharge Orders: Discharge Order (Routine); Ordered 01/13/19 Ordered By: [facility] March Skilled Items Patient informed of condition?: Yes DNR: No Discharge Level of Care: Skilled Communicable Disease: No Discharge Prognosis: Stable Admission Data Admit Date/Time: 12/31/18 05:23 Attending Provider: [facility] Admit Provider: Stevo Macario Primary Care Provider: Naun Alvarez III Other Providers: Luis Null ; Jasvir Carvajal ; [facility] Service: Telemetry Other Interventions: Discharge Summary Assessment (RN) Last Done: 01/13/19 13:38 DC Date/Time DO NOT enter until pt leaves facility: 01/13/19 14:30
--- NOTE | 2019-01-13 17:21 | Hospitalist Progress Note ---
Date of Service this is billing note for 01/03/2019 January 13, 2019 Results & Data Vital Signs (Past 12 Hours) Vital Signs Temp Pulse Resp BP Pulse Ox 01/13/19 13:38 36.7 C 81 19 134/74 91 01/13/19 10:46 36.7 C 81 19 134/74 91 01/13/19 07:01 36.7 C 70 18 146/67 H 90 PG Care Time/CCT Total # of Minutes Spent Total Time Spent with Patient: Total time spent is greater than 50% in coordination of care (as documented) at patient's floor/unit and/or counseling patient:
[2019-01-16] MEDS ORDERED: APIXABAN 5 MG TABLET PO SCH (21:00)
== END 2019-01-13 14:30 | DRG 698 ==
LOC: ED 03:03 → SUATTDRO 05:23 → 2S 05:23 → 4E 01-03 10:54 → 2S 01-07 01:42
DX: G35 Multiple sclerosis; Z79.899 Other long term (current) drug therapy; A41.9 Sepsis, unspecified organism; R41.0 Disorientation, unspecified; E53.8 Deficiency of other specified B group vitamins; Y73.1 Therapeutic (nonsurgical) and rehabilitative gastroenterology and urology devices associated with adverse incidents; D63.8 Anemia in other chronic diseases classified elsewhere; G82.20 Paraplegia, unspecified; I47.1 Supraventricular tachycardia; I82.412 Acute embolism and thrombosis of left femoral vein; G50.0 Trigeminal neuralgia; K20.8 Other esophagitis; E78.5 Hyperlipidemia, unspecified; T83.511A Infection and inflammatory reaction due to indwelling urethral catheter, initial encounter; I10 Essential (primary) hypertension; Y84.6 Urinary catheterization as the cause of abnormal reaction of the patient, or of later complication, without mention of misadventure at the time of the procedure

== ENCOUNTER 2020-05-04 04:48 | Inpatient (IN) ==
[2020-05-04] MEDS ORDERED: PANTOprazole 80 MG in DEXTROSE 5% 100 ML IV STA (04:57)
--- NOTE | 2020-05-04 05:03 | Emergency Department Note ---
Impression & Plan Hematemesis, Altered mental status, Atrial flutter with rapid ventricular response, Complicated urinary tract infection ED Provider Note Name: CJ KEITA Age: 79 Sex: F Arrives Via: Ambulance Informant: EMS, Nursing notes ED Provider: Ryan Caputo MD Chief Complaint: Vomiting blood Impression: Hematemesis Altered Mental Status Atrial Flutter with Rapid Ventricular Response Complicated Urinary Tract Infection Medical Decision Makin yr old female with extensive PMH on anticoagulation, indwelling griffiths amongst host of other medical issues arrives for worsening mental status in setting of vomiting up coffee ground emesis. Mild hypoxia though lung exam with just some mild crackles, hypoxia may be mental status related as opposed to aspiration event. She has soft non-tender abdomen thus no emergent need for imaging indicated. Labs without significant anemia and otherwise stable for her with just mild wbc elevation. She was given IV protonix on arrival along with 500ml IV fluids. After about 2 hours in department patient developed tachycardia. EKG consistent with Flutter. Given 500mL IV fluid and 5mg IV lopressor and patient reverted to NSR. With upper gi bleed obvious no indication for further anticoagulation and she is already on eliquis. Will get cultures for possible sepsis causing tachyarrhythmia. Will treat with Cefepime for presumed urinary source of infection as indwelling griffiths with most recent UTI being Ecoli susceptible to cefepime. No reported covid exposure thus will defer testing. Prior Medical Record and Triage/Nursing Notes reviewed by Me Additional history obtained from chart Differentials:Infection, dehydration, metabolic abnormality, hypo/hyperglycemia, electrolyte disturbance, anemia, hypoxia, cardiac sources, intracerebral event, toxicologic, neurologic, as well as other pathologies. Vital Signs: reviewed and remarkable for HTN Interventions: saline lock, nss bolus 500ml x 2, lopressor 5mg IV, cefepime 2gm IV, protonix 80mg IV Labs:Reviewed and remarkable for mild wbc elevation from baseline Imaging:X ray results are stated below per my interpretation: Chest: 1 view: No infiltrate, no effusion, normal cardiac border. Poor inspiratory effort. EKG:Per My Interpretation: Indication AMS: NSR 70 bpm, qtc 447. No Ectopy. No Ischemia. Compared to EKG 01/08/19, no significant changes though poor baseline today. EKG #2: Per My Interpretation: Indication Rhythm change: Aflutter 135 bpm, qtc 573, acute change from ekg earlier in stay. Cardiac/Tele Monitoring: Cardiac Monitoring: An Order was placed for continuous cardiac monitoring. The monitor shows a rate of 60 with a normal sinus rhythm. Consults:Dr John ENGEL Hospitalist Plan: Disposition:Hospitalization. Referred to: PCP Condition: Fair Prescriptions:none PDMP: n/a History of Present Illness:79 yr old female with extensive PMH living at local retirement arrives for evaluation of upper GI bleed. 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 This occured several times. Associated with mildly worsening confusion, though apparently she is always somewhat confused. EMS was called and noted she was mildly hypoxic on RA 87-93%. Patient has had no reported falls nor injuries. She has history of UGI Bleed in past as well as she is on Eliquis for a DVT. Further information unavailable given patient's mental status/confusion ROS: Unable to obtain secondary to confusion/dementia of patient Past Medical History:See Below Past Surgical History:Unknown due to dementia Family History:Unknown due to dementia Social History:Lives in retirement, DNR per EMS report Home Medications:See Below Allergies:Levaquin Vitals:Blood Pressure: 160/72, Pulse 60, RR 18, T 37.7C, O2 100% on RA Physical Exam: GENERAL: Patient is chronically unwell appearing and in no distress. EYES: No scleral icterus, unremarkable pupils. ENT: Mucous membranes dry, no nasal congestion. Dried/coffee ground emesis in mouth NECK: No masses appreciated, nomeningismus, trachea is midline. RESPIRATORY: No dyspnea. Mild crackles thought, no wheeze CARDIOVASCULAR: Regular rate and rhythm.No murmurs, rubs, gallops appreciated. GASTROINTESTINAL: Abdomen soft, non-tender, no peritonitis.Bowel sounds positive.No masses appreciated. BACK: No midline tenderness, no CVA tenderness EXTREMITIES: Weak movement extremities, mild edema all 4, no cyanosis. NEUROLOGIC: Obtunded, responds weakly to loud stimuli SKIN: No rash, no jaundice, no diaphoresis. PSYCH: Appropriate GCS: 9 ED Course: Times/Reassessments: stable until developed aflutter with mild HTN, which res olved with IV fluids/lopressor. Still essentially obtunded Ryan Caputo MD Past Med/Surg History Medical History (Updated 05/04/20 @ 07:19 by Ryan Caputo MD) Abnormal urinalysis Constipation Fever History of multiple sclerosis Left-sided weakness Lymphedema of left leg Multiple sclerosis Paraplegia SVT (supraventricular tachycardia) Trigeminal neuralgia of left side of face Urinary retention Family History Other Family history non-contributory Social History Smoking Status: Unknown if ever smoked Second Hand Exposure: No; Hx Alcohol Use: No Hx Substance Use: No Preferred Language: Amharic Communication Ability: Effective Seaman Officer Required: No Beliefs That Will Affect Care: None Current Living Situation: Alone Current Living Situation Comment: Home Health Feels Safe at Home: Yes Assistive Devices: Glasses Allergies Allergies Allergy/AdvReac Type Severity Reaction Status Date / Time levofloxacin [From Levaquin] Allergy Unknown Unknown Unverified 12/01/19 14:37 Home Meds Home Medications Medication Instructions Recorded Confirmed cholecalciferol (vitamin D3) 2,000 unit PO QAM 06/14/18 12/01/19 [Vitamin D3] cyanocobalamin (vitamin B-12) 1,000 mcg PO QAM 06/14/18 12/01/19 [Vitamin B-12] glatiramer [Copaxone] 20 mg SUBCUT QAM 06/14/18 12/01/19 apixaban [Eliquis] 5 mg PO BID 12/01/19 12/01/19 citalopram 10 mg PO DAILY 12/01/19 12/01/19 diltiazem HCl 120 mg PO DAILY 12/01/19 12/01/19 famotidine 20 mg PO BID 12/01/19 12/01/19 gabapentin 1,200 mg PO BID 12/01/19 12/01/19 lidocaine 1 patch TOPICAL QAM 12/01/19 12/01/19 multivitamin with minerals 1 tab PO DAILY 12/01/19 12/01/19 potassium chloride [Klor-Con M10] 20 meq PO DAILY 12/01/19 12/01/19 sucralfate 10 ml PO QID 12/01/19 12/01/19 Previous Rx's Medication Instructions Recorded tramadol 50 mg tablet 50 mg PO Q6H #30 tab 12/25/18 Results & Data (ED) Vital Signs Vital Signs - 24 hr 05/04/20 04:58 05/04/20 05:39 05/04/20 06:59 Temperature 37.7 C H Temperature Source Oral Pulse Rate 77 137 H Pulse Rate [Right Finger] 68 Respiratory Rate 18 18 Respiratory Depth Normal Normal Blood Pressure 141/80 H Blood Pressure [Right Arm] 160/72 H Blood Pressure Mean 100 Blood Pressure Mean [Right Arm] 101 Blood Pressure Position Lying Blood Pressure Position [Right Arm] Lying Pulse Oximetry 93 100 Oxygen Delivery Method Room Air Room Air Sepsis Recent Fever Within 48 Hours Yes Sepsis New/Unexplained Change in Mental Status Yes Sepsis Action Taken by Nursing No Action Required Laboratory Data Result diagrams: 05/04/20 05:13 05/04/20 05:13 Lab Results 05/04/20 05/04/20 05/04/20 Range/Units 05:13 05:13 05:13 WBC 12.92 H (4.8-10.8) K/uL RBC 4.63 (4.2-5.4) M/uL Hgb 13.3 (12.0-16.0) g/dL Hct 42.8 (37-47) % MCV 92.4 (80-100) fL MCH 28.7 (25-34) pg MCHC 31.1 L (32-36) g/dL RDW Std Deviation 50.2 H (36.4-46.3) fL RDW Coeff of Aparna 14.8 H (11.5-14.5) % Plt Count 526 H (130-400) K/uL MPV 10.0 (7.4-10.4) fL Immature Gran % (Auto) 0.2 % Neut % (Auto) 84.1 % Lymph % (Auto) 11.5 % [place] % (Auto) 4.0 % Eos % (Auto) 0.0 % Baso % (Auto) 0.2 % Neut # (Auto) 10.88 H (1.4-6.5) K/uL Lymph # (Auto) 1.48 (1.2-3.4) K/uL [place] # (Auto) 0.52 (0.11-0.59) K/uL Eos # (Auto) 0.00 (0-0.5) K/uL Baso # (Auto) 0.02 (0-0.2) K/uL Immature Gran # (Auto) 0.02 (0.00-0.02) K/uL PT 10.9 (9.0-12.0) Seconds INR 1.0 (0.9-1.1) APTT 29.1 (21.0-31.0) Seconds PTT Ratio 1.0 Sodium (136-145) mmol/L Potassium (3.5-5.1) mmol/L Chloride (98-107) mmol/L Carbon Dioxide (21-32) mmol/L Anion Gap (3-11) BUN (7-18) mg/dl Creatinine (0.6-1.2) mg/dl Est Cr Clr Drug Dosing ml/min Est GFR ( Amer) Est GFR (Non-Af Amer) BUN/Creatinine Ratio (10-20) Glucose (70-99) mg/dl Calcium (8.5-10.1) mg/dl Magnesium (1.8-2.4) mg/dl Total Bilirubin (0.2-1) mg/dl Direct Bilirubin (0-0.2) mg/dl AST (15-37) U/L ALT (12-78) U/L Alkaline Phosphatase (45-117) U/L Troponin I (0-0.045) ng/ml Total Protein (6.4-8.2) gm/dl Albumin (3.4-5.0) gm/dl Lipase (73-393) U/L Blood Type O Positive Antibody Screen NEGATIVE 05/04/20 Range/Units 05:13 WBC (4.8-10.8) K/uL RBC (4.2-5.4) M/uL Hgb (12.0-16.0) g/dL Hct (37-47) % MCV (80-100) fL MCH (25-34) pg MCHC (32-36) g/dL RDW Std Deviation (36.4-46.3) fL RDW Coeff of Aparna (11.5-14.5) % Plt Count (130-400) K/uL MPV (7.4-10.4) fL Immature Gran % (Auto) % Neut % (Auto) % Lymph % (Auto) % [place] % (Auto) % Eos % (Auto) % Baso % (Auto) % Neut # (Auto) (1.4-6.5) K/uL Lymph # (Auto) (1.2-3.4) K/uL [place] # (Auto) (0.11-0.59) K/uL Eos # (Auto) (0-0.5) K/uL Baso # (Auto) (0-0.2) K/uL Immature Gran # (Auto) (0.00-0.02) K/uL PT (9.0-12.0) Seconds INR (0.9-1.1) APTT (21.0-31.0) Seconds PTT Ratio Sodium 140 (136-145) mmol/L Potassium 4.1 (3.5-5.1) mmol/L Chloride 103 (98-107) mmol/L Carbon Dioxide 33 H (21-32) mmol/L Anion Gap 4.0 (3-11) BUN 22 H (7-18) mg/dl Creatinine 1.14 (0.6-1.2) mg/dl Est Cr Clr Drug Dosing 41.5 ml/min Est GFR ( Amer) 52.2 Est GFR (Non-Af Amer) 45.1 BUN/Creatinine Ratio 18.9 (10-20) Glucose 150 H (70-99) mg/dl Calcium 9.5 (8.5-10.1) mg/dl Magnesium 2.4 (1.8-2.4) mg/dl Total Bilirubin 0.4 (0.2-1) mg/dl Direct Bilirubin < 0.1 (0-0.2) mg/dl AST 15 (15-37) U/L ALT 12 (12-78) U/L Alkaline Phosphatase 130 H (45-117) U/L Troponin I < 0.015 (0-0.045) ng/ml Total Protein 7.6 (6.4-8.2) gm/dl Albumin 3.1 L (3.4-5.0) gm/dl Lipase 77 (73-393) U/L Blood Type Antibody Screen Administered Medications Sodium Chloride (Nss 1000ml) 500 mls @ 999 mls/hr IV .Q31M ONE Stop: 05/04/20 07:14 Last Admin: 05/04/20 07:05 Dose: 999 mls/hr Documented by: [id number] Discontinued Medications Pantoprazole Sodium 80 mg/ (Dextrose) 100 mls @ 400 mls/hr IV ONE STA Stop: 05/04/20 05:11 Last Admin: 05/04/20 05:42 Dose: 400 mls/hr Documented by: [id number] Sodium Chloride (Nss 1000ml) 500 mls @ 999 mls/hr IV .Q31M ONE Stop: 05/04/20 06:00 Last Admin: 05/04/20 05:42 Dose: 999 mls/hr Documented by: [id number] Metoprolol Tartrate (Metoprolol Tartrate 1 Mg/Ml Vial) 5 mg IV NOW STA Stop: 05/04/20 06:50 Last Admin: 05/04/20 06:59 Dose: 5 mg Documented by: [id number] Discharge Plan Visit Data Chief Complaint: GI Bleed Stated Complaint: GI BLEED/ALTERED MENTAL STATUS ED Provider: Ryan Caputo Discharge Problem: Hematemesis, Altered mental status, Atrial flutter with rapid ventricular response, Complicated urinary tract infection Forms Stand Alone Forms: [facility] Prescriptions Prescriptions: No Action tramadol 50 mg tablet 50 mg PO Q6H Qty: 30 RF: 0 cholecalciferol (vitamin D3) [Vitamin D3] 2,000 unit Tablet 2,000 unit PO QAM RF: 0 cyanocobalamin (vitamin B-12) [Vitamin B-12] 1,000 mcg Tablet 1,000 mcg PO QAM RF: 0 glatiramer [Copaxone] 20 mg/mL Syringe 20 mg SUBCUT QAM RF: 0 gabapentin 600 mg Tablet 1,200 mg PO BID RF: 0 citalopram 10 mg Tablet 10 mg PO DAILY RF: 0 diltiazem HCl 120 mg Capsule,Extended Release 24 Hr 120 mg PO DAILY RF: 0 lidocaine 5 % Adhesive Patch,Medicated 1 patch TOPICAL QAM RF: 0 multivitamin with minerals Tablet 1 tab PO DAILY RF: 0 potassium chloride [Klor-Con M10] 10 mEq Tablet,Er Particles/Crystals 20 meq PO DAILY RF: 0 sucralfate 100 mg/mL suspension 10 ml PO QID RF: 0 famotidine 20 mg tablet 20 mg PO BID RF: 0 Eliquis 5 mg tablet 5 mg PO BID RF: 0 Discharge Problem: Hematemesis Qualifiers: Nausea presence: unspecified Qualified Code(s): K92.0 - Hematemesis Altered mental status Qualifiers: Altered mental status type: somnolence Qualified Code(s): R40.0 - Somnolence
[2020-05-04] MEDS ORDERED: SODIUM CHLORIDE 0.9% 1000ML 500 ML IV ONE ×2 (05:30→06:44)
[2020-05-04 05:36] LABS: Basophils # (auto) 0.02 K/uL (0-0.2); Basophils % (auto) 0.2 %; Hematocrit (blood only) 42.8 % (37-47); Hemoglobin 13.3 g/dL (12.0-16.0); Immature Granulocytes # (auto) 0.02 K/uL (0.00-0.02); Immature Granulocytes % (auto) 0.2 %; Lymphocytes # (auto) 1.48 K/uL (1.2-3.4); Lymphocytes % (auto) 11.5 %; Mean Corpuscular Hemoglobin 28.7 pg (25-34); Mean Corpuscular Hgb Conc 31.1 g/dL (32-36); Mean Corpuscular Volume 92.4 fL (80-100); Monocytes # (auto) 0.52 K/uL (0.11-0.59); Neutrophils # (auto) 10.88 K/uL (1.4-6.5); Neutrophils % (auto) 84.1 %; Platelet Count 526 K/uL (130-400); RDW Coefficient of Variation 14.8 % (11.5-14.5); RDW Standard Deviation 50.2 fL (36.4-46.3); Red Blood Count 4.63 M/uL (4.2-5.4); White Blood Count 12.92 K/uL (4.8-10.8)
[2020-05-04 05:46] LABS: Partial Thromboplastin Time 29.1 Seconds (21.0-31.0); Prothrombin Time 10.9 Seconds (9.0-12.0)
[2020-05-04 06:09] LABS: Alanine Aminotransferase 12 U/L (12-78); Albumin Level 3.1 gm/dl (3.4-5.0); Aspartate Aminotransferase 15 U/L (15-37); BUN Creatinine Ratio 18.9 (10-20); Bilirubin Direct < 0.1 mg/dl (0-0.2); Blood Urea Nitrogen 22 mg/dl (7-18); Calcium 9.5 mg/dl (8.5-10.1); Carbon Dioxide 33 mmol/L (21-32); Chloride 103 mmol/L (98-107); Creatinine Clr Calc Pharmacy 41.5 ml/min; Est GFR (African American) 52.2; Est GFR (Non-African American) 45.1; Glucose 150 mg/dl (70-99); Lipase 77 U/L (73-393); Magnesium 2.4 mg/dl (1.8-2.4); Potassium 4.1 mmol/L (3.5-5.1); Sodium 140 mmol/L (136-145)
[2020-05-04 06:14] LABS: Alkaline Phosphatase 130 U/L (45-117); Bilirubin,Total 0.4 mg/dl (0.2-1); Total Protein 7.6 gm/dl (6.4-8.2); Troponin I < 0.015 ng/ml (0-0.045)
[2020-05-04] MEDS ORDERED: METOPROLOL TARTRATE 1 MG/ML VIAL IV STA ×2 (06:49→14:05)
[2020-05-04] MEDS ORDERED: CEFEPIME 2,000 MG/20 ML VIAL IV STA (07:09)
--- NOTE | 2020-05-04 07:10 | XRay Report ---
SINGLE VIEW CHEST CLINICAL HISTORY: Change in mental status. Vomiting. FINDINGS: An AP, portable, upright chest radiograph is compared to study dated 01/12/2019. Correlation is made with chest CT dated 04/13/2012. The examination is degraded by portable technique and patient rotation. The heart is top normal for projection noting atherosclerotic calcification of the thorac ic aorta. The pulmonary vasculature is noncongested. Emphysema and chronic interstitial thickening ar e similar to previous. There is bibasilar scarring/atelectasis. No airspace consolidation or large pl eural effusion is identified. No pneumothorax is seen. The skeletal structures are osteopenic. The [facility] thorax is grossly intact. IMPRESSION: Emphysematous change with no acute cardiopulmonary abnormality. ACT 112: Negative or not required by law. Electronically signed by: Issac Rebolledo M.D. 05/04/2020 7:09 AM
[2020-05-04 07:18] LABS: Appearance Urine Turbid (Clear); Bacteria Urine Automated 4+ (Negative); Bilirubin Urine Negative (Negative); Blood Urine Trace (Negative); Color Urine Yellow; Glucose Urine UA Negative (Negative); Ketones Urine Negative (Negative); Leukocyte Esterase Urine 2+ (Negative); Nitrite Urine Negative (Negative); Specific Gravity Urine 1.022 (1.000-1.030); Urobilinogen Urine Negative (Negative); WBC Urine Automated >30 /hpf (0-5); pH Urine 7.5 (4.5-7.5)
--- NOTE | 2020-05-04 07:21 | CT Scan Report ---
CT SCAN OF THE BRAIN WITHOUT IV CONTRAST CLINICAL HISTORY: Change in mental status. COMPARISON STUDY: CT of the brain dated 12/01/2019. TECHNIQUE: Unenhanced axial CT scan of the brain is performed from the vertex to the skull base. A do se lowering technique was utilized adhering to the principles of ALARA. CT DOSE: 614.27 mGy.cm FINDINGS: Brain parenchyma: There are age-related involutional changes noting moderate confluent subcortical a nd periventricular microangiopathic change. There is no hemorrhage, mass effect, or evidence of acute territorial ischemia by CT criteria. Light-white matter differentiation is preserved. No extra-axial fluid collection is seen. Ventricles, sulci, cisterns: Prominent secondary to involutional change. Intracranial vasculature: There is atherosclerotic calcification of the cavernous carotid and vertebr al arteries. Calvarium: There is postoperative change from left occiput craniotomy. No destructive calvarial lesio n is identified. Sinuses and mastoids: Trace mucosal thickening is noted in the sphenoid sinuses with frothy secretion s on the left. The remaining visualized paranasal sinuses are clear. The mastoid air cells are well p neumatized. Orbits: The bony orbits are grossly intact. There are bilateral ocular lens implants. IMPRESSION: There is no hemorrhage, mass effect, or evidence of acute territorial ischemia by CT nany noriega. ACT 112: Negative or not required by law. Electronically signed by: Issac Rebolledo M.D. 05/04/2020 7:19 AM
[2020-05-04 07:29] LABS: Protein Urine Negative (Negative); Sulfosalicylic Acid Urine Negative (Negative)
[2020-05-04 07:31] LABS: Triple Phosphate Crystal Urine Present (None Prsent)
--- NOTE | 2020-05-04 08:51 | History & Physical Report ---
Date of Service May 04, 2020 Assessment & Plan (1) Sepsis: likely due to catheter associated UTI Lactic acid 3.4, will repeat in less than 6 hours BP stable, no signs of shock, NSS at 100cc/hr h/o E coli ESBL, will order Ertapenem 1000mg IV daily, follow up urine and blood cultures admit to PCU/tele (2) Catheter-associated urinary tract infection: history of such, past cultures grew out E coli, E coli that was ESBL, proteus will cover with Ertapenem follow up cultures exchange griffiths catheter today (3) Hematemesis: reported coffee ground emesis, unsure if this was accurate h/o esophagitis but no ulcers will keep NPO, Protonix 40mg IV BID consult [facility] gastro[facility]ology, they have seen her before repeat H/H at noon (4) [place] grade C esophagitis: as above, history of this use Protonix 40mg IV BID (5) DVT (deep venous thrombosis): h/o this diagnosis, hold anticoagulation with possible GI bleed SCD for DVT prophylaxis (6) Paraplegia: chronic issue, due to MS, resides at SNF (7) HTN (hypertension): BP stable, hold diltiazem due to sepsis (8) SVT (supraventricular tachycardia): h/o paroxysmal SVT went into SVT in the ED with HR in the 130's resolved with fluid bolus and Lopressor 5mg IV monitor on tele History of Present Illness Chief Complaint: I was throwing up Primary Care Provider: [facility] 79 yo female with history of MS, she is bedbound at a SNF with chronic griffiths catheter and a history of UTI, ESBL E coli in the past, also a history of esophagitis with admissions for possible bleeding and anemia, she presents with vomiting at her SNF. Per report it looked like coffee grounds but the patient cannot confirm this. She has not vomited in the ED so we have not tested the emesis for blood. She c/o some nausea at this time, no abdominal pain, no diarrhea or constipation, she says these symptoms started abruptly last evening into this morning. She admits to a fever and some sweats. No chest pain, no dyspnea, no cough. She denies any severe pain. Reviewed prior admissions this year for catheter associated UTI and sepsis as well as vomiting and epigastric pain attributed to esophagitis treated with PPI and Carafate. In the ED she was given Protonix IV. She had a temperature of 37.7 and romeo herron went into SVT with HR in the 130's. Of note, she has a history of paroxysmal SVT, this resolved with a dose of Lopressor 5mg IV in the ED as well as a fluid bolus. Lactic acid was mildly elevated at 3.4. Cr stable, mild leukocytosis, Hb noted to be 13. We are asked to admit for the possible coffee ground emesis and catheter associated UTI with signs of sepsis. discussed code status directly with patient at the time of admission. She quickly stated that she would not want heroic measures if her heart would stop, she would not want intubated. Allergies Allergy/AdvReac Type Severity Reaction Status Date / Time levofloxacin [From Levaquin] Allergy Unknown Unknown Unverified 05/04/20 07:57 Home Medications Home Medications Medication Instructions Recorded Confirmed Type cholecalciferol (vitamin D3) 2,000 unit PO QAM 06/14/18 05/04/20 History [Vitamin D3] cyanocobalamin (vitamin B-12) 1,000 mcg PO QAM 06/14/18 05/04/20 History [Vitamin B-12] glatiramer [Copaxone] 20 mg SUBCUT QAM 06/14/18 05/04/20 History tramadol 50 mg tablet 50 mg PO Q6H #30 tab 12/25/18 05/04/20 Rx apixaban [Eliquis] 5 mg PO BID 12/01/19 05/04/20 History citalopram 10 mg PO DAILY 12/01/19 05/04/20 History diltiazem HCl 120 mg PO DAILY 12/01/19 05/04/20 History famotidine 20 mg PO BID 12/01/19 05/04/20 History gabapentin 1,200 mg PO BID 12/01/19 05/04/20 History lidocaine 1 patch TOPICAL QAM 12/01/19 05/04/20 History multivitamin with minerals 1 tab PO DAILY 12/01/19 05/04/20 History potassium chloride [Klor-Con M10] 20 meq PO DAILY 12/01/19 05/04/20 History sucralfate 10 ml PO QID 12/01/19 05/04/20 History acetaminophen 325 mg PO QID PRN 05/04/20 05/04/20 History atorvastatin 40 mg PO HS 05/04/20 05/04/20 History loperamide [Imodium] 2 mg PO Q6H PRN 05/04/20 05/04/20 History Past Med/Surg History Medical History Abnormal urinalysis Constipation Fever History of multiple sclerosis Left-sided weakness Lymphedema of left leg Multiple sclerosis Paraplegia SVT (supraventricular tachycardia) Trigeminal neuralgia of left side of face Urinary retention Family History Other Family history non-contributory Social History Smoking Status: Former smoker Second Hand Exposure: No; Hx Alcohol Use: No Hx Substance Use: No Preferred Language: Faroese Communication Ability: Effective Bundles Hanger Required: No Beliefs That Will Affect Care: None Current Living Situation: Jail Current Living Situation Comment: Home Health Other Information That Helps Us Care for You: No Feels Safe at Home: Yes Safety Concerns: Feels Safe At This Time Assistive Devices: Denture - Upper and Glasses Review of Systems Review of Systems: All systems reviewed & are unremarkable except as noted in Subjective Constitutional: + fever, + sweats, + fatigue and + weakness; no chills and no weight loss Respiratory: no cough, no dyspnea and no wheezing Cardiovascular: no chest pain, no palpitations, no syncope and no edema Gastrointestinal: + nausea, + vomiting and + hematemesis (possible, patient could not confirm); no abdominal pain, no constipation and no diarrhea/loose stools Genitourinary: chronic griffiths catheter Musculoskeletal: + muscle weakness (generalized, chronic condition with MS) Physical Exam Constitutional: well developed, + ill appearing and + diaphoretic; no acute distress Eyes: PERRL, conjunctivae normal, anicteric sclerae ENMT: external ear and nose normal, oropharynx normal Neck: trachea midline, no thyromegaly Respiratory: normal respiratory effort, lungs clear to auscultation Auscultation: + diminished lung sounds (bases) Cardiovascular: Rate/Rhythm: regular rate and regular rhythm Heart Sounds: normal S1 and normal S2; no murmur Vessels: no JVD Extremities: normal capillary refill; no edema Gastrointestinal (Abdomen): normal bowel sounds, soft, nontender, no hepatosplenomegaly Musculoskeletal: Head/Neck/Chest: normocephalic, head atraumatic and neck supple Extremities: extremities normal to inspection and + abnormal strength (weakness of lower extremities bilaterally) Skin: no rashes, warm and dry Neurologic: patellar DTR's 2+ bilat, sensation intact and PERRL, EOMI, accommodation nl, no face palsy, no dysarthria Psychiatric: A+Ox3, euthymic affect Lymphatic: no cervical or axillary lymphadenopathy Results & Data Results & Data ([facility]) Vital Signs (Past 12 Hours) Vital Signs Temp Pulse Pulse Resp BP BP Pulse Ox 05/04/20 07:47 67 20 139/68 98 05/04/20 06:59 137 H 05/04/20 05:39 68 18 160/72 H 100 05/04/20 04:58 37.7 C H 77 18 141/80 H 93 Laboratory Results Laboratory Results - last 24 hr 05/04/20 05/04/20 05/04/20 05:13 05:13 05:13 WBC 12.92 H RBC 4.63 Hgb 13.3 Hct 42.8 MCV 92.4 MCH 28.7 MCHC 31.1 L RDW Std Deviation 50.2 H RDW Coeff of Aparna 14.8 H Plt Count 526 H MPV 10.0 Immature Gran % (Auto) 0.2 Neut % (Auto) 84.1 Lymph % (Auto) 11.5 [place] % (Auto) 4.0 Eos % (Auto) 0.0 Baso % (Auto) 0.2 Neut # (Auto) 10.88 H Lymph # (Auto) 1.48 [place] # (Auto) 0.52 Eos # (Auto) 0.00 Baso # (Auto) 0.02 Immature Gran # (Auto) 0.02 PT 10.9 INR 1.0 APTT 29.1 PTT Ratio 1.0 Sodium Potassium Chloride Carbon Dioxide Anion Gap BUN Creatinine Est Cr Clr Drug Dosing Est GFR ( Amer) Est GFR (Non-Af Amer) BUN/Creatinine Ratio Glucose Lactate Calcium Magnesium Total Bilirubin Direct Bilirubin AST ALT Alkaline Phosphatase Troponin I Total Protein Albumin Lipase Urine Color Urine Appearance Urine pH Ur Specific [place] Urine Protein Urine Glucose (UA) Urine Ketones Urine Blood Urine Nitrite Urine Bilirubin Urine Urobilinogen Ur Leukocyte Esterase Urine WBC (Auto) Urine RBC (Auto) U Hyaline Cast (Auto) U Epithel Cells (Auto) Urine Bacteria (Auto) Triple Phos Crystals Urine Yeast Blood Type O Positive Antibody Screen NEGATIVE 05/04/20 05/04/20 05/04/20 05:13 07:00 07:08 WBC RBC Hgb Hct MCV MCH MCHC RDW Std Deviation RDW Coeff of Aparna Plt Count MPV Immature Gran % (Auto) Neut % (Auto) Lymph % (Auto) [place] % (Auto) Eos % (Auto) Baso % (Auto) Neut # (Auto) Lymph # (Auto) [place] # (Auto) Eos # (Auto) Baso # (Auto) Immature Gran # (Auto) PT INR APTT PTT Ratio Sodium 140 Potassium 4.1 Chloride 103 Carbon Dioxide 33 H Anion Gap 4.0 BUN 22 H Creatinine 1.14 Est Cr Clr Drug Dosing 41.5 Est GFR ( Amer) 52.2 Est GFR (Non-Af Amer) 45.1 BUN/Creatinine Ratio 18.9 Glucose 150 H Lactate 3.6 H* Calcium 9.5 Magnesium 2.4 Total Bilirubin 0.4 Direct Bilirubin < 0.1 AST 15 ALT 12 Alkaline Phosphatase 130 H Troponin I < 0.015 Total Protein 7.6 Albumin 3.1 L Lipase 77 Urine Color Yellow Urine Appearance Turbid A Urine pH 7.5 Ur Specific [place] 1.022 Urine Protein Negative Urine Glucose (UA) Negative Urine Ketones Negative Urine Blood Trace H Urine Nitrite Negative Urine Bilirubin Negative Urine Urobilinogen Negative Ur Leukocyte Esterase 2+ H Urine WBC (Auto) >30 H Urine RBC (Auto) 5-10 H U Hyaline Cast (Auto) 10-30 H U Epithel Cells (Auto) 5-10 H Urine Bacteria (Auto) 4+ H Triple Phos Crystals Present A Urine Yeast Not Reportable Blood Type Antibody Screen 05/04/20 07:08 WBC RBC Hgb 12.4 Hct MCV MCH MCHC RDW Std Deviation RDW Coeff of Aparna Plt Count MPV Immature Gran % (Auto) Neut % (Auto) Lymph % (Auto) [place] % (Auto) Eos % (Auto) Baso % (Auto) Neut # (Auto) Lymph # (Auto) [place] # (Auto) Eos # (Auto) Baso # (Auto) Immature Gran # (Auto) PT INR APTT PTT Ratio Sodium Potassium Chloride Carbon Dioxide Anion Gap BUN Creatinine Est Cr Clr Drug Dosing Est GFR ( Amer) Est GFR (Non-Af Amer) BUN/Creatinine Ratio Glucose Lactate Calcium Magnesium Total Bilirubin Direct Bilirubin AST ALT Alkaline Phosphatase Troponin I Total Protein Albumin Lipase Urine Color Urine Appearance Urine pH Ur Specific [place] Urine Protein Urine Glucose (UA) Urine Ketones Urine Blood Urine Nitrite Urine Bilirubin Urine Urobilinogen Ur Leukocyte Esterase Urine WBC (Auto) Urine RBC (Auto) U Hyaline Cast (Auto) U Epithel Cells (Auto) Urine Bacteria (Auto) Triple Phos Crystals Urine Yeast Blood Type Antibody Screen Diagnostic Findings SINGLE VIEW CHEST IMPRESSION: Emphysematous change with no acute cardiopulmonary abnormality. CT head: negative for acute changes Code Status & VTE Plan Code Status DNR - discussed with patient VTE Prophylaxis Plan VTE Prophylaxis will be ordered: Yes PG Care Time/CCT Total # of Minutes Spent Total Time Spent with Patient: Total time spent is greater than 50% in coordination of care (as documented) at patient's floor/unit and/or counseling patient: Coding Level of Care Code 96011 Initial Inpt Care Lvl 3 Diagnoses Sepsis A41.9 Catheter-associated urinary tract infection T83.511A; N39.0 Hematemesis K92.0 Nausea presence: unspecified [place] grade C esophagitis K20.8 DVT (deep venous thrombosis) I82.409 Paraplegia G82.20 HTN (hypertension) I10 Hypertension type: essential hypertension SVT (supraventricular tachycardia) I47.1 (1) Hematemesis Nausea presence: unspecified Qualified Code(s): K92.0 - Hematemesis (2) HTN (hypertension) Hypertension type: essential hypertension Qualified Code(s): I10 - Essential (primary) hypertension
[2020-05-04] MEDS ORDERED: ONDANSETRON INJ 2 MG/ML 2 ML VIAL IV PRN (12:43)
[2020-05-04 13:02] LABS: Hematocrit (blood only) 39.5 % (37-47); Hemoglobin 12.2 g/dL (12.0-16.0)
--- NOTE | 2020-05-04 13:16 | Electrocardiogram Report ---
Test Reason : Blood Pressure : / mmHG Vent. Rate : 070 BPM Atrial Rate : 070 BPM P-R Int : 152 ms QRS Dur : 074 ms QT Int : 414 ms P-R-T Axes : 024 097 -37 degrees QTc Int : 447 ms Poor data quality, interpretation may be adversely affected Normal sinus rhythm Rightward axis Possible Anterior infarct (cited on or before 08-JAN-2019) Abnormal ECG When compared with ECG of 08-JAN-2019 06:38, Vent. rate has decreased BY 52 BPM QRS axis Shifted right Inverted T waves have replaced nonspecific T wave abnormality in Inferior leads Confirmed by David Espinosa ([id number]) on 05/04/2020 1:16:01 PM Referred By: [facility] Confirmed By:David Espinosa
--- NOTE | 2020-05-04 13:17 | Electrocardiogram Report ---
Test Reason : Blood Pressure : / mmHG Vent. Rate : 135 BPM Atrial Rate : 270 BPM P-R Int : 000 ms QRS Dur : 070 ms QT Int : 382 ms P-R-T Axes : -68 -45 240 degrees QTc Int : 573 ms Atrial flutter with 2:1 A-V conduction Left axis deviation T wave abnormality, consider inferior ischemia T wave abnormality, consider anterolateral ischemia Abnormal ECG When compared with ECG of 04-MAY-2020 05:25, (unconfirmed) Significant changes have occurred Confirmed by David Espinosa ([id number]) on 05/04/2020 1:17:18 PM Referred By: [facility] Confirmed By:David Espinosa
[2020-05-04] MEDS: ERTAPENEM SODIUM 1,000 MG in SODIUM CHLORIDE 0.9% 50 ML IV SCH (13:18)
[2020-05-04] MEDS: PANTOprazole 40 MG in SYRINGE 0 ML IV SCH ×2 (13:18→21:54)
[2020-05-04] MEDS: SODIUM CHLORIDE 0.9% 1000ML 1,000 ML IV SCH ×2 (13:19→23:31)
--- NOTE | 2020-05-04 15:48 | Gastrointestinal Consultation ---
Date of Consultation May 04, 2020 Assessment & Plan (1) Hematemesis: (2) Esophagitis: likely 2/2 esophagitis; currently stable with normal hgb. Recs: --start protonix 40 mg IV BID while hospitalized, then PO BID as outpatient --trend H/H, transfuse prn hgb <7 --if further episodes/symptoms or worsening anemia will consider repeat EGD, for now will monitor --clear liquid diet for now rest as per primary team Thank you for allowing me to participate in the care of this patient History of Present Illness Attending Physician: Ted Lopez, DO 79 yo female with hx MS, bedbound at SNF with chronic griffiths catheter, hx UTI and esophagitis here with coffee ground emesis. Facility reported patient had episode of coffee ground emesis today, no further vomiting here in the hospital. Noted to have some nausea, fevers, and sweats, but otherwise no significant issues. She had prior EGD in 2019 which showed [place] grade C esophagitis. Hgb currently normal at 12.2., VSS. BUN is elevated at 22. labs reviewed. Allergies Allergy/AdvReac Type Severity Reaction Status Date / Time levofloxacin [From Levaquin] Allergy Unknown Unknown Unverified 05/04/20 07:57 Home Medications Home Medications Medication Instructions Recorded Confirmed Type cholecalciferol (vitamin D3) 2,000 unit PO QAM 06/14/18 05/04/20 History [Vitamin D3] cyanocobalamin (vitamin B-12) 1,000 mcg PO QAM 06/14/18 05/04/20 History [Vitamin B-12] glatiramer [Copaxone] 20 mg SUBCUT QAM 06/14/18 05/04/20 History tramadol 50 mg tablet 50 mg PO Q6H #30 tab 12/25/18 05/04/20 Rx apixaban [Eliquis] 5 mg PO BID 12/01/19 05/04/20 History citalopram 10 mg PO DAILY 12/01/19 05/04/20 History diltiazem HCl 120 mg PO DAILY 12/01/19 05/04/20 History famotidine 20 mg PO BID 12/01/19 05/04/20 History gabapentin 1,200 mg PO BID 12/01/19 05/04/20 History lidocaine 1 patch TOPICAL QAM 12/01/19 05/04/20 History multivitamin with minerals 1 tab PO DAILY 12/01/19 05/04/20 History potassium chloride [Klor-Con M10] 20 meq PO DAILY 12/01/19 05/04/20 History sucralfate 10 ml PO QID 12/01/19 05/04/20 History acetaminophen 325 mg PO QID PRN 05/04/20 05/04/20 History atorvastatin 40 mg PO HS 05/04/20 05/04/20 History loperamide [Imodium] 2 mg PO Q6H PRN 05/04/20 05/04/20 History Patient History Medical History Abnormal urinalysis Constipation Fever History of multiple sclerosis Left-sided weakness Lymphedema of left leg Multiple sclerosis Paraplegia SVT (supraventricular tachycardia) Trigeminal neuralgia of left side of face Urinary retention Family History Other Family history non-contributory Social History Smoking Status: Former smoker Second Hand Exposure: No; Hx Alcohol Use: No Hx Substance Use: No Preferred Language: Colombian Communication Ability: Effective Therapist Phys Required: No Beliefs That Will Affect Care: None Current Living Situation: Longterm Current Living Situation Comment: Home Health Feels Safe at Home: Yes Assistive Devices: Denture - Upper and Glasses Review of Systems Constitutional: no fever, no chills and no weight loss Eyes: as per Subjective / HPI Ear, Nose, Mouth, Throat: as per Subjective / HPI Respiratory: no dyspnea and no dyspnea on exertion Cardiovascular: no chest pain and no palpitations Gastrointestinal: as per Subjective / HPI Musculoskeletal: no joint pain and no swelling Integumentary: no rash and no lesions Neurologic: no numbness and no paresthesia Psychiatric: no depression and no anxiety Endocrine: no fatigue Hematologic / Lymphatic: no easy bleeding and no easy bruising Physical Exam Constitutional: WD/WN, vitals as above Eyes: EOM intact bilaterally Neck: normal visual inspection Respiratory: normal respiratory effort, lungs clear to auscultation Cardiovascular: RRR, no murmur, no edema Gastrointestinal (Abdomen): Inspection/Auscultation: abdomen normal to inspection; abdomen not distended Percussion/Palpation: abdomen soft; abdomen nontender and no hepatosplenomegaly Musculoskeletal: Extremities: no cyanosis Gait: normal gait Skin: no rashes, warm and dry Neurologic: moves all extremities Psychiatric: A+Ox3, euthymic affect Results & Data ([facility]) Vital Signs (Past 12 Hours) Vital Signs Temp Pulse Pulse Resp BP BP Pulse Ox 05/04/20 15:05 36.9 C 66 20 122/71 98 05/04/20 14:11 139 H 161/83 H 05/04/20 12:43 37.7 C H 76 20 161/83 H 91 05/04/20 11:40 72 20 158/72 H 99 05/04/20 11:00 61 20 160/68 H 99 05/04/20 09:00 67 20 132/79 98 05/04/20 07:47 67 20 139/68 98 05/04/20 06:59 137 H 05/04/20 05:39 68 18 160/72 H 100 05/04/20 04:58 37.7 C H 77 18 141/80 H 93 PG Care Time/CCT Total # of Minutes Spent Total Time Spent with Patient: Total time spent is greater than 50% in coordination of care (as documented) at patient's floor/unit and/or counseling patient: Coding Level of Care Code 81067 Initial Inpt Care Lvl 3 Diagnoses Hematemesis K92.0 Nausea presence: unspecified Esophagitis K20.9 (1) Hematemesis Nausea presence: unspecified Qualified Code(s): K92.0 - Hematemesis
[2020-05-04] MEDS ORDERED: METOPROLOL TARTRATE 1 MG/ML VIAL IV PRN (16:35)
--- NOTE | 2020-05-05 05:43 | Communication Note ---
Date of Service: May 05, 2020 Joan Mckenzie is an 79 year old woman with a history of MS who is here for sepsis who had an acute change in mental status per nursing staff. She says that she is slurring her words and talking some nonsense in a "Word salad" manner. When I got to see patient and she is acutely altered oriented to person only. Though her speech is clear. Probably due to delirium from her infection but given nursing's concern for acute change and my lack on knowledge of patient's baseline I will get a head CT to assess for acute process. CN II-XII intact. Patient with left sided unequal to right but per nursing this is chronic.
[2020-05-05 06:23] LABS: Basophils # (auto) 0.04 K/uL (0-0.2); Basophils % (auto) 0.4 %; Eosinophils # (auto) 0.44 K/uL (0-0.5); Eosinophils % (auto) 4.5 %; Hematocrit (blood only) 35.4 % (37-47); Hemoglobin 10.5 g/dL (12.0-16.0); Immature Granulocytes # (auto) 0.03 K/uL (0.00-0.02); Immature Granulocytes % (auto) 0.3 %; Lymphocytes # (auto) 2.84 K/uL (1.2-3.4); Lymphocytes % (auto) 28.9 %; Mean Corpuscular Hemoglobin 27.8 pg (25-34); Mean Corpuscular Hgb Conc 29.7 g/dL (32-36); Mean Corpuscular Volume 93.7 fL (80-100); Mean Platelet Volume 10.1 fL (7.4-10.4); Monocytes # (auto) 1.06 K/uL (0.11-0.59); Monocytes % (auto) 10.8 %; Neutrophils # (auto) 5.43 K/uL (1.4-6.5); Neutrophils % (auto) 55.1 %; Platelet Count 464 K/uL (130-400); RDW Coefficient of Variation 15.2 % (11.5-14.5); RDW Standard Deviation 51.5 fL (36.4-46.3); Red Blood Count 3.78 M/uL (4.2-5.4); White Blood Count 9.84 K/uL (4.8-10.8)
--- NOTE | 2020-05-05 06:41 | CT Scan Report ---
CT OF THE HEAD WITHOUT CONTRAST CLINICAL HISTORY: Acute change in mental status. COMPARISON STUDY: Head CT May 04, 2020 and December 01, 2019. CT DOSE: 614.27 mGy.cm TECHNIQUE: Helical axial images of the head were obtained without IV contrast. Automated exposure con trol was utilized for the study. A dose lowering technique was utilized adhering to the principles o f ALARA. FINDINGS: No acute intracranial hemorrhage, midline shift or mass effect is present. The ventricular system is stable. White matter hypodensity suggests small vessel disease. The basilar cisterns are pa tent. No extra-axial collections are present. There are no findings to suggest acute dural sinus thro mbosis or acute territorial infarct. No significant calvarial abnormalities are present. There are mi ld secretions within the sphenoid sinus. A left occipital craniotomy is noted. IMPRESSION: No acute intracranial findings. No change in appearance of the brain. ACT 112: Negative or not required by law. Electronically signed by: Naga Genao M.D. 05/05/2020 6:39 AM
[2020-05-05 06:52] LABS: BUN Creatinine Ratio 26.7 (10-20); Calcium 9.5 mg/dl (8.5-10.1); Creatinine Clr Calc Pharmacy 52.7 ml/min; Est GFR (African American) 69.5; Potassium 3.2 mmol/L (3.5-5.1)
[2020-05-05] MEDS: PANTOprazole 40 MG in SYRINGE 0 ML IV SCH ×2 (08:42→19:55)
[2020-05-05] MEDS: SODIUM CHLORIDE 0.9% 1000ML 1,000 ML IV SCH ×2 (08:46→10:04)
--- NOTE | 2020-05-05 09:09 | Hospitalist Progress Note ---
Date of Service May 05, 2020 Assessment & Plan (1) Sepsis: likely due to catheter associated UTI Lactic acid 3.4, trended up to 3.8 but BP stable BP stable, no signs of shock, NSS at 100cc/hr initially, will decrease to 70cc/hr and give liquid diet h/o E coli ESBL, continue Ertapenem 1000mg IV daily, follow up urine and blood cultures, no growth thus far no fever, WBC normal (2) Catheter-associated urinary tract infection: history of such, past cultures grew out E coli, E coli that was ESBL, proteus will cover with Ertapenem follow up cultures, no growth thus far exchange griffiths catheter while here (3) Hematemesis: reported coffee ground emesis, unsure if this was accurate h/o esophagitis but no ulcers full liquid diet, Protonix 40mg IV BID, add Carafate consult [facility] gastroenterology, they have seen her before no plans for EGD, no evidence of acute bleeding repeat H/H today is 10.2 but this is her baseline value suspect she had some hemoconcentration on admission (4) Streator grade C esophagitis: as above, history of this use Protonix 40mg IV BID Carafate QID (5) DVT (deep venous thrombosis): h/o this diagnosis, hold anticoagulation with possible GI bleed SCD for DVT prophylaxis if Hb stable tomorrow will add back Apixaban (6) Paraplegia: (7) HTN (hypertension): BP elevated today, resume Diltiazem 120mg qAM this morning (8) SVT (supraventricular tachycardia): h/o paroxysmal SVT, today in afib with RVR, rates 130-140's resume Diltiazem 120mg qAM Lopressor 5mg IV q4 for HR > 130 (9) Hypokalemia: low at 3.2 Potassium 20mg BID Admission and Anticipated Discharge Date Admission Date: May 04, 2020 Subjective patient is alert and conversive this morning she is oriented to person, does not remember coming to the hospital she remembers that her son came to visit last night, she knows the names of her sons HR 130-140's this morning, afib on monitor, h/o paroxysmal SVT, now that she is conversive and awake will give her liquid diet, needs to take Diltiazem PO reviewed labs, Hb down to 10 but actually that is her baseline, likely some hemoconcentration on admission Cr is stable, K a little low discussed with Dr. Jackson, no plans for EGD unless she has clear evidence of bleeding, there is none at this time Review of Systems Review of Systems: All systems reviewed & are unremarkable except as noted in Subjective Constitutional: + fatigue and + weakness; no fever Respiratory: no cough and no dyspnea Cardiovascular: no chest pain Gastrointestinal: no abdominal pain, no nausea, no vomiting, no constipation and no diarrhea/loose stools Physical Exam Constitutional: well developed, cooperative and comfortable; no acute distress Eyes: PERRL, conjunctivae normal, anicteric sclerae ENMT: external ear and nose normal, oropharynx normal Neck: trachea midline, no thyromegaly Respiratory: normal respiratory effort, lungs clear to auscultation Auscultation: + diminished lung sounds (bases) Cardiovascular: Rate/Rhythm: + tachycardic and + irregularly irregular Heart Sounds: normal S1 and normal S2; no murmur Vessels: no JVD Extremities: normal capillary refill; no edema Gastrointestinal (Abdomen): normal bowel sounds, soft, nontender, no hepatosplenomegaly Musculoskeletal: Head/Neck/Chest: normocephalic, head atraumatic and neck supple Extremities: extremities normal to inspection and + abnormal strength (weakness of lower extremities bilaterally) Skin: no rashes, warm and dry Neurologic: patellar DTR's 2+ bilat, sensation intact and PERRL, EOMI, accommodation nl, no face palsy, no dysarthria Psychiatric: A+Ox3, euthymic affect Lymphatic: no cervical or axillary lymphadenopathy Results & Data [facility] Vital Signs (Past 12 Hours) Vital Signs Temp Pulse Pulse Resp BP Pulse Ox 05/05/20 08:35 143 H 05/05/20 08:06 36.9 C 67 18 152/79 H 91 05/05/20 04:04 36.6 C 66 18 136/69 99 05/05/20 00:00 62 05/04/20 23:36 36.5 C 68 18 125/69 93 Laboratory Results Laboratory Results - last 24 hr 05/04/20 05/04/20 05/04/20 09:13 12:49 12:49 WBC RBC Hgb 12.2 Hct 39.5 MCV MCH MCHC RDW Std Deviation RDW Coeff of Aparna Plt Count MPV Immature Gran % (Auto) Neut % (Auto) Lymph % (Auto) [place] % (Auto) Eos % (Auto) Baso % (Auto) Neut # (Auto) Lymph # (Auto) [place] # (Auto) Eos # (Auto) Baso # (Auto) Immature Gran # (Auto) Sodium Potassium Chloride Carbon Dioxide Anion Gap BUN Creatinine Est Cr Clr Drug Dosing Est GFR ( Amer) Est GFR (Non-Af Amer) BUN/Creatinine Ratio Glucose POC Glucose Lactate 3.9 H* 3.8 H* Calcium 05/05/20 05/05/20 05/05/20 05:34 05:34 07:58 WBC 9.84 RBC 3.78 L Hgb 10.5 L Hct 35.4 L MCV 93.7 MCH 27.8 MCHC 29.7 L RDW Std Deviation 51.5 H RDW Coeff of Aparna 15.2 H Plt Count 464 H MPV 10.1 Immature Gran % (Auto) 0.3 Neut % (Auto) 55.1 Lymph % (Auto) 28.9 [place] % (Auto) 10.8 Eos % (Auto) 4.5 Baso % (Auto) 0.4 Neut # (Auto) 5.43 Lymph # (Auto) 2.84 [place] # (Auto) 1.06 H Eos # (Auto) 0.44 Baso # (Auto) 0.04 Immature Gran # (Auto) 0.03 H Sodium 144 Potassium 3.2 L D Chloride 110 H Carbon Dioxide 30 Anion Gap 4.0 BUN 24 H Creatinine 0.90 Est Cr Clr Drug Dosing 52.7 Est GFR ( Amer) 69.5 Est GFR (Non-Af Amer) 60.0 BUN/Creatinine Ratio 26.7 H Glucose 97 POC Glucose 89 Lactate Calcium 9.5 Medications Administered Current Inpatient Medications Atorvastatin Calcium (Atorvastatin 40 Mg Tab) 40 mg PO HS JAVID Stop: 06/04/20 20:59 Diltiazem HCl (Diltiazem Er 120 Mg Capcr) 120 mg PO DAILY JAVID Stop: 06/04/20 08:59 Gabapentin (Gabapentin 600 Mg Tab) 1,200 mg PO BID JAVID Stop: 06/04/20 08:59 Sodium Chloride (Nss 1000ml) 1,000 mls @ 70 mls/hr IV .[id number] JAVID Stop: 06/03/20 12:42 Last Admin: 05/05/20 08:46 Dose: 100 mls/hr Documented by: Pantoprazole Sodium 40 mg/ (Syringe) 10 mls @ 5 mls/min IV BID JAVID Stop: 06/03/20 12:59 Last Admin: 05/05/20 08:42 Dose: 5 mls/min Documented by: Ertapenem 1,000 mg/ Sodium (Chloride) 60 mls @ 100 mls/hr IV Q24H [facility]; Protocol Stop: 05/14/20 12:59 Last Infusion: 05/04/20 13:51 Dose: Infused Documented by: Metoprolol Tartrate (Metoprolol Tartrate 1 Mg/Ml Vial) 5 mg IV Q4H PRN PRN Reason: tachycardia Stop: 06/03/20 16:34 Last Admin: 05/05/20 08:35 Dose: 5 mg Documented by: Miscellaneous (Glatiramer [Copaxone] 20 Mg - Order Awaiting Action) 1 ea N/A QS JAVID Stop: 06/03/20 15:59 Last Admin: 05/05/20 01:04 Dose: Not Given Documented by: Non-Formulary Medication (Citalopram) 10 mg PO DAILY [facility] Stop: 06/04/20 08:59 Ondansetron HCl (Ondansetron Inj 2 Mg/Ml 2 Ml Vial) 4 mg IV Q6H PRN PRN Reason: Nausea Stop: 06/03/20 12:42 Potassium Chloride (Potassium Chloride 20 Meq Tabcr) 20 meq PO BID [facility] Stop: 06/04/20 08:59 Sucralfate (Sucralfate 1 Gm/10 Ml Udc) gm PO QID [facility] Stop: 06/04/20 08:59 PG Care Time/CCT Total # of Minutes Spent Total Time Spent with Patient: Total time spent is greater than 50% in coordination of care (as documented) at patient's floor/unit and/or counseling patient: Coding Level of Care Code 07074 Subseq Hosp Care Lvl 3 Diagnoses Sepsis A41.9 Catheter-associated urinary tract infection T83.511A; N39.0 Hematemesis K92.0 Nausea presence: unspecified Streator grade C esophagitis K20.8 DVT (deep venous thrombosis) I82.409 Paraplegia G82.20 HTN (hypertension) I10 Hypertension type: essential hypertension SVT (supraventricular tachycardia) I47.1 Hypokalemia E87.6 (1) Hematemesis Nausea presence: unspecified Qualified Code(s): K92.0 - Hematemesis (2) HTN (hypertension) Hypertension type: essential hypertension Qualified Code(s): I10 - Essential (primary) hypertension
[2020-05-05] MEDS: dilTIAZem ER 120 MG CAPCR PO SCH (10:02)
[2020-05-05] MEDS: GABAPENTIN 600 MG TAB PO SCH ×2 (10:03→19:56)
--- NOTE | 2020-05-05 10:18 | Gastroenterology Progress Note ---
Date of Service May 05, 2020 Assessment & Plan (1) Hematemesis: (2) Esophagitis: 1. Continue Protonix 40 mg BID. 2. Clear liquid diet with advancement as tolerated. 3. Continue supportive care. 4. No plan for invasive GI work up at this time. Admission and Anticipated Discharge Date Admission Date: May 04, 2020 Supervising Physician Co-Signing Physician Notes I personally evaluated the patient and agree with the findings as documented by QING Felix Exam: abd: soft, nt, nd continue PPI, emesis likely from esophagitis. diet as tolerated. Subjective Patient reports no further vomiting or hematemesis. Tolerating a clear liquid diet. Remains on PPI therapy due to known history of esophagitis. Review of Systems Constitutional: no problem reported Gastrointestinal: as per Subjective / HPI Physical Exam Constitutional: WD/WN, vitals as above well developed and well nourished Eyes: EOM intact bilaterally Neck: normal visual inspection Gastrointestinal (Abdomen): normal bowel sounds, soft, nontender, no hepatosplenomegaly Psychiatric: A+Ox3, euthymic affect Results & Data Results & Data ([facility]) Vital Signs (Past 12 Hours) Vital Signs Temp Pulse Pulse Resp BP Pulse Ox 05/05/20 08:35 143 H 05/05/20 08:06 36.9 C 67 18 152/79 H 91 05/05/20 04:04 36.6 C 66 18 136/69 99 05/05/20 00:00 62 05/04/20 23:36 36.5 C 68 18 125/69 93 Laboratory Results Abnormal lab results 05/04/20 05/05/20 05/05/20 Range/Units 12:49 05:34 05:34 RBC 3.78 L (4.2-5.4) M/uL Hgb 10.5 L (12.0-16.0) g/dL Hct 35.4 L (37-47) % MCHC 29.7 L (32-36) g/dL RDW Std Deviation 51.5 H (36.4-46.3) fL RDW Coeff of Aparna 15.2 H (11.5-14.5) % Plt Count 464 H (130-400) K/uL [place] # (Auto) 1.06 H (0.11-0.59) K/uL Immature Gran # (Auto) 0.03 H (0.00-0.02) K/uL Potassium 3.2 L D (3.5-5.1) mmol/L Chloride 110 H (98-107) mmol/L BUN 24 H (7-18) mg/dl BUN/Creatinine Ratio 26.7 H (10-20) Lactate 3.8 H* (0.4-2.0) mmol/L PG Care Time/CCT Total # of Minutes Spent Total Time Spent with Patient: Total time spent is greater than 50% in coordination of care (as documented) at patient's floor/unit and/or counseling patient: Coding Level of Care Code 49303 Subseq Hosp Care Lvl 3 Diagnoses Hematemesis K92.0 Nausea presence: unspecified Esophagitis K20.9 (1) Hematemesis Nausea presence: unspecified Qualified Code(s): K92.0 - Hematemesis
[2020-05-05] MEDS: POTASSIUM CHLORIDE CRTAB 20 MEQ TABCR PO SCH ×2 (10:21→19:56)
[2020-05-05] MEDS: SUCRALFATE 1 GM/10 ML UDC PO SCH ×4 (10:22→19:56)
[2020-05-05] MEDS: ERTAPENEM SODIUM 1,000 MG in SODIUM CHLORIDE 0.9% 50 ML IV SCH ×2 (14:39→14:44)
[2020-05-05] MEDS: ATORVASTATIN 40 MG TAB PO SCH (19:56)
[2020-05-06 07:23] LABS: Basophils # (auto) 0.02 K/uL (0-0.2); Basophils % (auto) 0.2 %; Eosinophils # (auto) 0.64 K/uL (0-0.5); Eosinophils % (auto) 7.1 %; Hemoglobin 10.2 g/dL (12.0-16.0); Immature Granulocytes # (auto) 0.03 K/uL (0.00-0.02); Immature Granulocytes % (auto) 0.3 %; Lymphocytes # (auto) 2.25 K/uL (1.2-3.4); Lymphocytes % (auto) 24.9 %; Mean Corpuscular Hemoglobin 28.7 pg (25-34); Mean Corpuscular Hgb Conc 30.9 g/dL (32-36); Mean Platelet Volume 9.6 fL (7.4-10.4); Monocytes # (auto) 0.73 K/uL (0.11-0.59); Monocytes % (auto) 8.1 %; Neutrophils # (auto) 5.35 K/uL (1.4-6.5); Neutrophils % (auto) 59.4 %; Platelet Count 419 K/uL (130-400); RDW Coefficient of Variation 15.1 % (11.5-14.5); RDW Standard Deviation 51.3 fL (36.4-46.3); Red Blood Count 3.55 M/uL (4.2-5.4); White Blood Count 9.02 K/uL (4.8-10.8)
[2020-05-06 07:46] LABS: BUN Creatinine Ratio 22.8 (10-20); Calcium 9.1 mg/dl (8.5-10.1); Creatinine Clr Calc Pharmacy 60.6 ml/min; Est GFR (African American) 82.6; Est GFR (Non-African American) 71.3; Potassium 3.4 mmol/L (3.5-5.1)
[2020-05-06] MEDS: CITALOPRAM 20 MG TAB PO SCH (08:25)
[2020-05-06] MEDS: POTASSIUM CHLORIDE CRTAB 20 MEQ TABCR PO SCH ×2 (08:25→20:34)
[2020-05-06] MEDS: SUCRALFATE 1 GM/10 ML UDC PO SCH ×4 (08:25→20:34)
[2020-05-06] MEDS: GABAPENTIN 600 MG TAB PO SCH ×2 (08:25→20:34)
[2020-05-06] MEDS: dilTIAZem ER 120 MG CAPCR PO SCH (08:26)
[2020-05-06] MEDS: cefTRIAXone SODIUM 2,000 MG in DEXTROSE 5% 50 ML IV SCH (08:26)
--- NOTE | 2020-05-06 09:41 | Hospitalist Progress Note ---
Date of Service May 06, 2020 Assessment & Plan (1) Sepsis: likely due to catheter associated UTI Lactic acid 3.4, trended up to 3.8 but BP stable BP stable, no signs of shock, stop fluids today h/o E coli ESBL, initially on Ertapenem 1000mg IV daily urine culture with E coli and Proteus, sensitive, change to Rocephin 2gm IV daily and then change to PO on discharge (2) Catheter-associated urinary tract infection: history of such, past cultures grew out E coli, E coli that was ESBL, proteus covered with Ertapenem initially change to Rocephin no growth on blood cultures (3) Hematemesis: reported coffee ground emesis, unsure if this was accurate h/o esophagitis but no ulcers full liquid diet, Protonix 40mg IV BID, add Carafate consult [facility] gastroenterology, they have seen her before no plans for EGD, no evidence of acute bleeding repeat H/H today is still 10.2 advance diet today (4) [place] grade C esophagitis: as above, history of this use Protonix 40mg IV BID Carafate QID (5) DVT (deep venous thrombosis): h/o this diagnosis, hold anticoagulation with possible GI bleed SCD for DVT prophylaxis resume Apixaban today (6) Paraplegia: chronic issue, due to MS, resides at SNF (7) HTN (hypertension): BP elevated today, resume Diltiazem 120mg qAM this morning (8) SVT (supraventricular tachycardia): h/o paroxysmal SVT, today in afib with RVR, rates 130-140's resume Diltiazem 120mg qAM no SVT since Diltiazem resumed, downgrade to medical floor (9) Hypokalemia: low at 3.4 Potassium 20mg BID Admission and Anticipated Discharge Date Admission Date: May 04, 2020 Subjective patient is calm now but she was yelling most of the night urine culture with E coli and Proteus, no evidence of ESBL change to Rocephin no SVT on monitor now that she is back on her Diltiazem PO since yesterday tolerating liquid diet, will advance to regular will downgrade to medical floor Review of Systems Review of Systems: All systems reviewed & are unremarkable except as noted in Subjective Musculoskeletal: + muscle weakness Neurologic: + confusion Physical Exam Constitutional: well developed, cooperative and comfortable; no acute distress Eyes: PERRL, conjunctivae normal, anicteric sclerae ENMT: external ear and nose normal, oropharynx normal Neck: trachea midline, no thyromegaly Respiratory: normal respiratory effort, lungs clear to auscultation Auscultation: + diminished lung sounds (bases) Cardiovascular: Rate/Rhythm: + tachycardic and + irregularly irregular Heart Sounds: normal S1 and normal S2; no murmur Vessels: no JVD Extremities: normal capillary refill; no edema Gastrointestinal (Abdomen): normal bowel sounds, soft, nontender, no hepatosplenomegaly Musculoskeletal: Head/Neck/Chest: normocephalic, head atraumatic and neck supple Extremities: extremities normal to inspection and + abnormal strength (weakness of lower extremities bilaterally) Skin: no rashes, warm and dry Neurologic: patellar DTR's 2+ bilat, sensation intact and PERRL, EOMI, accommodation nl, no face palsy, no dysarthria Psychiatric: Orientation: alert and oriented to person; + not oriented to place and + not oriented to time Lymphatic: no cervical or axillary lymphadenopathy Results & Data Results & Data ([facility]) Vital Signs (Past 12 Hours) Vital Signs Temp Pulse Resp BP Pulse Ox 05/06/20 08:07 36.8 C 66 20 144/78 H 92 05/06/20 03:19 36.8 C 73 17 144/71 H 93 05/05/20 23:37 37.0 C 61 19 129/70 93 Laboratory Results Laboratory Results - last 24 hr 05/06/20 05/06/20 06:51 06:51 WBC 9.02 RBC 3.55 L Hgb 10.2 L Hct 33.0 L MCV 93.0 MCH 28.7 MCHC 30.9 L RDW Std Deviation 51.3 H RDW Coeff of Aparna 15.1 H Plt Count 419 H MPV 9.6 Immature Gran % (Auto) 0.3 Neut % (Auto) 59.4 Lymph % (Auto) 24.9 [place] % (Auto) 8.1 Eos % (Auto) 7.1 Baso % (Auto) 0.2 Neut # (Auto) 5.35 Lymph # (Auto) 2.25 [place] # (Auto) 0.73 H Eos # (Auto) 0.64 H Baso # (Auto) 0.02 Immature Gran # (Auto) 0.03 H Sodium 145 Potassium 3.4 L Chloride 113 H Carbon Dioxide 29 Anion Gap 3.0 BUN 18 Creatinine 0.78 Est Cr Clr Drug Dosing 60.6 Est GFR ( Amer) 82.6 Est GFR (Non-Af Amer) 71.3 BUN/Creatinine Ratio 22.8 H Glucose 93 Calcium 9.1 Medications Administered Current Inpatient Medications Atorvastatin Calcium (Atorvastatin 40 Mg Tab) 40 mg PO HS JAVID Stop: 06/04/20 20:59 Last Admin: 05/05/20 19:56 Dose: 40 mg Documented by: Citalopram Hydrobromide (Citalopram 20 Mg Tab) 10 mg PO DAILY JAVID Stop: 06/05/20 08:59 Last Admin: 05/06/20 08:25 Dose: 10 mg Documented by: Diltiazem HCl (Diltiazem Er 120 Mg Capcr) 120 mg PO DAILY J[facility]ID Stop: 06/04/20 08:59 Last Admin: 05/06/20 08:26 Dose: 120 mg Documented by: Gabapentin (Gabapentin 600 Mg Tab) 1,200 mg PO BID JAVID Stop: 06/04/20 08:59 Last Admin: 05/06/20 08:25 Dose: 1,200 mg Documented by: Glatiramer Acetate (Glatiramer Acetate 20 Mg) 1 ea SQ TODAY@1000 [facility] Stop: 05/06/20 10:01 Sodium Chloride (Nss 1000ml) 1,000 mls @ 70 mls/hr IV .[id number] JAVID Stop: 06/03/20 12:42 Last Infusion: 05/05/20 22:18 Dose: Infused Documented by: Pantoprazole Sodium 40 mg/ (Syringe) 10 mls @ 5 mls/min IV BID JAVID Stop: 06/03/20 12:59 Last Admin: 05/05/20 19:55 Dose: 5 mls/min Documented by: Ceftriaxone Sodium 2,000 mg/ (Dextrose) 70 mls @ 100 mls/hr IV DAILY [facility]; Protocol Stop: 05/14/20 08:59 Last Admin: 05/06/20 08:26 Dose: 100 mls/hr Documented by: Metoprolol Tartrate (Metoprolol Tartrate 1 Mg/Ml Vial) 5 mg IV Q4H PRN PRN Reason: tachycardia Stop: 06/03/20 16:34 Last Admin: 05/05/20 08:35 Dose: 5 mg Documented by: Miscellaneous (Glatiramer [Copaxone] 20 Mg - Order Awaiting Action) 1 ea N/A QS [facility] Stop: 06/03/20 15:59 Last Admin: 05/06/20 08:23 Dose: Not Given Documented by: Ondansetron HCl (Ondansetron Inj 2 Mg/Ml 2 Ml Vial) 4 mg IV Q6H PRN PRN Reason: Nausea Stop: 06/03/20 12:42 Potassium Chloride (Potassium Chloride 20 Meq Tabcr) 20 meq PO BID [facility] Stop: 06/04/20 08:59 Last Admin: 05/06/20 08:25 Dose: 20 meq Documented by: Sucralfate (Sucralfate 1 Gm/10 Ml Udc) 1 gm PO QID [facility] Stop: 06/04/20 08:59 Last Admin: 05/06/20 08:25 Dose: 1 gm Documented by: PG Care Time/CCT Total # of Minutes Spent Total Time Spent with Patient: Total time spent is greater than 50% in coordination of care (as documented) at patient's floor/unit and/or counseling patient: Coding Level of Care Code 34115 Subseq Hosp Care Lvl 3 Diagnoses Sepsis A41.9 Catheter-associated urinary tract infection T83.511A; N39.0 Hematemesis K92.0 Nausea presence: unspecified [place] grade C esophagitis K20.8 DVT (deep venous thrombosis) I82.409 Paraplegia G82.20 HTN (hypertension) I10 Hypertension type: essential hypertension SVT (supraventricular tachycardia) I47.1 Hypokalemia E87.6 (1) Hematemesis Nausea presence: unspecified Qualified Code(s): K92.0 - Hematemesis (2) HTN (hypertension) Hypertension type: essential hypertension Qualified Code(s): I10 - Essential (primary) hypertension
[2020-05-06] MEDS ORDERED: GLATIRAMER ACETATE 20 MG SQ SCH (10:00)
[2020-05-06] MEDS: PANTOprazole 40 MG in SYRINGE 0 ML IV SCH ×2 (10:29→20:34)
[2020-05-06] MEDS: SODIUM CHLORIDE 0.9% 1000ML 1,000 ML IV SCH (10:43)
[2020-05-06] MEDS ORDERED: METOPROLOL TARTRATE 25 MG TAB PO ONE (11:30)
[2020-05-06] MEDS: APIXABAN 5 MG TABLET PO SCH ×2 (12:01→20:34)
[2020-05-06] MEDS: ATORVASTATIN 40 MG TAB PO SCH (20:34)
[2020-05-07 07:29] LABS: Basophils # (auto) 0.03 K/uL (0-0.2); Basophils % (auto) 0.3 %; Eosinophils # (auto) 0.47 K/uL (0-0.5); Eosinophils % (auto) 5.4 %; Hemoglobin 11.1 g/dL (12.0-16.0); Immature Granulocytes # (auto) 0.02 K/uL (0.00-0.02); Immature Granulocytes % (auto) 0.2 %; Lymphocytes # (auto) 2.34 K/uL (1.2-3.4); Mean Corpuscular Hemoglobin 28.4 pg (25-34); Mean Corpuscular Hgb Conc 30.8 g/dL (32-36); Mean Corpuscular Volume 92.1 fL (80-100); Mean Platelet Volume 10.1 fL (7.4-10.4); Monocytes # (auto) 0.69 K/uL (0.11-0.59); Neutrophils # (auto) 5.11 K/uL (1.4-6.5); Neutrophils % (auto) 59.1 %; Platelet Count 461 K/uL (130-400); RDW Coefficient of Variation 15.2 % (11.5-14.5); RDW Standard Deviation 51.1 fL (36.4-46.3); Red Blood Count 3.91 M/uL (4.2-5.4); White Blood Count 8.66 K/uL (4.8-10.8)
[2020-05-07 08:11] LABS: BUN Creatinine Ratio 16.8 (10-20); Calcium 9.9 mg/dl (8.5-10.1); Creatinine Clr Calc Pharmacy 62.1 ml/min; Est GFR (African American) 82.6; Est GFR (Non-African American) 71.3; Potassium 3.6 mmol/L (3.5-5.1)
--- NOTE | 2020-05-07 09:11 | Hospitalist Progress Note ---
Date of Service May 07, 2020 Assessment & Plan (1) Sepsis: likely due to catheter associated UTI Lactic acid 3.4, trended up to 3.8 but BP stable BP stable, no signs of shock, stop fluids 05/05 h/o E coli ESBL, initially on Ertapenem 1000mg IV daily urine culture with E coli and Proteus, sensitive, change to Rocephin 2gm IV daily and then change to PO on discharge, likely Saturday (2) Catheter-associated urinary tract infection: history of such, past cultures grew out E coli, E coli that was ESBL, proteus covered with Ertapenem initially changed to Rocephin 05/06 no growth on blood cultures thus far (3) Hematemesis: reported coffee ground emesis, unsure if this was accurate h/o esophagitis but no ulcers Protonix 40mg IV BID, add Carafate consult [facility] gastroenterology, they have seen her before no plans for EGD, no evidence of acute bleeding repeat H/H today is stable advance diet 05/06 (4) Slaughters grade C esophagitis: as above, history of this use Protonix 40mg IV BID Carafate QID (5) DVT (deep venous thrombosis): h/o this diagnosis, hold anticoagulation with possible GI bleed SCD for DVT prophylaxis resume Apixaban 05/06 (6) Paraplegia: chronic issue, due to MS, resides at SNF (7) HTN (hypertension): BP elevated today, resume Diltiazem 120mg qAM this morning (8) SVT (supraventricular tachycardia): h/o paroxysmal SVT, today in afib with RVR, rates 130-140's resume Diltiazem 120mg qAM no SVT since Diltiazem resumed, downgrade to medical floor has SVT yesterday, resolved with Lopressor 25mg PO x 1 (9) Hypokalemia: improved to 3.6 continue Potassium 20mg BID Admission and Anticipated Discharge Date Admission Date: May 04, 2020 Subjective patient pleasantly confused her vitals are stable, encourage her to eat Hb is stable, no vomiting WBC normal, Cr normal, K is 3.6 continue Rocephin over the weekend likely to [place] Saturday Review of Systems Review of Systems: Unobtainable due to cognitive status Physical Exam Constitutional: well developed, cooperative and comfortable; no acute distress Neck: trachea midline, no thyromegaly Respiratory: normal respiratory effort, lungs clear to auscultation Auscultation: + diminished lung sounds (bases) Cardiovascular: Rate/Rhythm: regular rate and regular rhythm Heart Sounds: normal S1 and normal S2; no murmur Vessels: no JVD Extremities: normal capillary refill; no edema Gastrointestinal (Abdomen): normal bowel sounds, soft, nontender, no hepatosplenomegaly Musculoskeletal: Head/Neck/Chest: normocephalic, head atraumatic and neck supple Extremities: extremities normal to inspection and + abnormal strength (weakness of lower extremities bilaterally) Skin: no rashes, warm and dry Neurologic: patellar DTR's 2+ bilat, sensation intact and PERRL, EOMI, accommodation nl, no face palsy, no dysarthria Psychiatric: Orientation: alert and oriented to person; + not oriented to place and + not oriented to time Lymphatic: no cervical or axillary lymphadenopathy Results & Data Results & Data ([facility]) Vital Signs (Past 12 Hours) Vital Signs Temp Pulse Resp BP Pulse Ox 05/07/20 06:19 36.4 C L 68 17 138/80 96 05/07/20 03:59 69 93 05/07/20 00:17 36.8 C 63 14 136/68 95 Laboratory Results Laboratory Results - last 24 hr 05/07/20 05/07/20 05/07/20 05:15 06:36 06:36 WBC 8.66 RBC 3.91 L Hgb 11.1 L Hct 36.0 L MCV 92.1 MCH 28.4 MCHC 30.8 L RDW Std Deviation 51.1 H RDW Coeff of Aparna 15.2 H Plt Count 461 H MPV 10.1 Immature Gran % (Auto) 0.2 Neut % (Auto) 59.1 Lymph % (Auto) 27.0 [place] % (Auto) 8.0 Eos % (Auto) 5.4 Baso % (Auto) 0.3 Neut # (Auto) 5.11 Lymph # (Auto) 2.34 [place] # (Auto) 0.69 H Eos # (Auto) 0.47 Baso # (Auto) 0.03 Immature Gran # (Auto) 0.02 Sodium 145 Potassium 3.6 Chloride 110 H Carbon Dioxide 30 Anion Gap 4.0 BUN 13 Creatinine 0.78 Est Cr Clr Drug Dosing 62.1 Est GFR ( Amer) 82.6 Est GFR (Non-Af Amer) 71.3 BUN/Creatinine Ratio 16.8 Glucose 93 Calcium 9.9 Specimen Hemolysis Nasal Screen MRSA (PCR) Negative Medications Administered Current Inpatient Medications Apixaban (Apixaban 5 Mg Tablet) 5 mg PO BID [facility] Stop: 06/05/20 10:59 Last Admin: 05/06/20 20:34 Dose: 5 mg Documented by: Atorvastatin Calcium (Atorvastatin 40 Mg Tab) 40 mg PO HS JAVID Stop: 06/04/20 20:59 Last Admin: 05/06/20 20:34 Dose: 40 mg Documented by: Citalopram Hydrobromide (Citalopram 20 Mg Tab) 10 mg PO DAILY [facility] Stop: 06/05/20 08:59 Last Admin: 05/06/20 08:25 Dose: 10 mg Documented by: Diltiazem HCl (Diltiazem Er 120 Mg Capcr) 120 mg PO DAILY [facility] Stop: 06/04/20 08:59 Last Admin: 05/06/20 08:26 Dose: 120 mg Documented by: Gabapentin (Gabapentin 600 Mg Tab) 1,200 mg PO BID [facility] Stop: 06/04/20 08:59 Last Admin: 05/06/20 20:34 Dose: 1,200 mg Documented by: Glatiramer Acetate (Glatiramer Acetate 20 Mg) 1 ea SQ DAILY [facility] Stop: 06/06/20 08:59 Pantoprazole Sodium 40 mg/ (Syringe) 10 mls @ 5 mls/min IV BID [facility]ID Stop: 06/03/20 12:59 Last Admin: 05/06/20 20:34 Dose: 5 mls/min Documented by: Ceftriaxone Sodium 2,000 mg/ (Dextrose) 70 mls @ 100 mls/hr IV DAILY [facility]; Protocol Stop: 05/14/20 08:59 Last Infusion: 05/06/20 10:30 Dose: Infused Documented by: Ondansetron HCl (Ondansetron Inj 2 Mg/Ml 2 Ml Vial) 4 mg IV Q6H PRN PRN Reason: Nausea Stop: 06/03/20 12:42 Potassium Chloride (Potassium Chloride 20 Meq Tabcr) 20 meq PO BID [facility] Stop: 06/04/20 08:59 Last Admin: 05/06/20 20:34 Dose: 20 meq Documented by: Sucralfate (Sucralfate 1 Gm/10 Ml Udc) 1 gm PO QID [facility] Stop: 06/04/20 08:59 Last Admin: 05/06/20 20:34 Dose: 1 gm Documented by: PG Care Time/CCT Total # of Minutes Spent Total Time Spent with Patient: Total time spent is greater than 50% in coordination of care (as documented) at patient's floor/unit and/or counseling patient: Coding Level of Care Code 85156 Subseq Hosp Care Lvl 3 Diagnoses Sepsis A41.9 Catheter-associated urinary tract infection T83.511A; N39.0 Hematemesis K92.0 Nausea presence: unspecified [place]aughters grade C esophagitis K20.8 DVT (deep venous thrombosis) I82.409 Paraplegia G82.20 HTN (hypertension) I10 Hypertension type: essential hypertension SVT (supraventricular tachycardia) I47.1 Hypokalemia E87.6 (1) Hematemesis Nausea presence: unspecified Qualified Code(s): K92.0 - Hematemesis (2) HTN (hypertension) Hypertension type: essential hypertension Qualified Code(s): I10 - Essential (primary) hypertension
[2020-05-07] MEDS: SUCRALFATE 1 GM/10 ML UDC PO SCH ×4 (09:44→20:31)
[2020-05-07] MEDS: CITALOPRAM 20 MG TAB PO SCH (09:45)
[2020-05-07] MEDS: APIXABAN 5 MG TABLET PO SCH ×2 (09:45→20:31)
[2020-05-07] MEDS: GABAPENTIN 600 MG TAB PO SCH ×2 (09:46→20:33)
[2020-05-07] MEDS: dilTIAZem ER 120 MG CAPCR PO SCH (09:46)
[2020-05-07] MEDS: PANTOprazole 40 MG in SYRINGE 0 ML IV SCH ×2 (09:47→20:33)
[2020-05-07] MEDS: GLATIRAMER ACETATE 20 MG SQ SCH (09:47)
[2020-05-07] MEDS: POTASSIUM CHLORIDE CRTAB 20 MEQ TABCR PO SCH ×2 (09:47→20:32)
[2020-05-07] MEDS: cefTRIAXone SODIUM 2,000 MG in DEXTROSE 5% 50 ML IV SCH (11:19)
[2020-05-07] MEDS: ATORVASTATIN 40 MG TAB PO SCH (20:32)
[2020-05-08] MEDS: SUCRALFATE 1 GM/10 ML UDC PO SCH ×2 (07:11→13:19)
[2020-05-08] MEDS: CITALOPRAM 20 MG TAB PO SCH (07:12)
[2020-05-08] MEDS: dilTIAZem ER 120 MG CAPCR PO SCH (07:13)
[2020-05-08] MEDS: POTASSIUM CHLORIDE CRTAB 20 MEQ TABCR PO SCH (07:14)
[2020-05-08] MEDS: GABAPENTIN 600 MG TAB PO SCH (07:14)
[2020-05-08] MEDS: APIXABAN 5 MG TABLET PO SCH (07:16)
[2020-05-08] MEDS: PANTOprazole 40 MG in SYRINGE 0 ML IV SCH (07:34)
[2020-05-08] MEDS: cefTRIAXone SODIUM 2,000 MG in DEXTROSE 5% 50 ML IV SCH (07:34)
[2020-05-08] MEDS: GLATIRAMER ACETATE 20 MG SQ SCH (07:35)
--- NOTE | 2020-05-08 11:57 | Discharge Summary ---
Date of Service May 08, 2020 Admission HPI Per Admitting Provider 79 yo female with history of MS, she is bedbound at a SNF with chronic griffiths catheter and a history of UTI, ESBL E coli in the past, also a history of esophagitis with admissions for possible bleeding and anemia, she presents with vomiting at her SNF. Per report it looked like coffee grounds but the patient cannot confirm this. She has not vomited in the ED so we have not tested the emesis for blood. She c/o some nausea at this time, no abdominal pain, no diarrhea or constipation, she says these symptoms started abruptly last evening into this morning. She admits to a fever and some sweats. No chest pain, no dyspnea, no cough. She denies any severe pain. Reviewed prior admissions this year for catheter associated UTI and sepsis as well as vomiting and epigastric pain attributed to esophagitis treated with PPI and Carafate. In the ED she was given Protonix IV. She had a temperature of 37.7 and momentarily went into SVT with HR in the 130's. Of note, she has a history of paroxysmal SVT, this resolved with a dose of Lopressor 5mg IV in the ED as well as a fluid bolus. Lactic acid was mildly elevated at 3.4. Cr stable, mild leukocytosis, Hb noted to be 13. We are asked to admit for the possible coffee ground emesis and catheter associated UTI with signs of sepsis. discussed code status directly with patient at the time of admission. She quickly stated that she would not want heroic measures if her heart would stop, she would not want intubated. Principal Diagnosis Catheter associated UTI, E coli and Proteus, causing sepsis Discharge Exam Constitutional well developed, cooperative and comfortable; no acute distress Neck trachea midline, no thyromegaly Respiratory normal respiratory effort, lungs clear to auscultation Auscultation: + diminished lung sounds (bases) Cardiovascular Rate/Rhythm: regular rate and regular rhythm Heart Sounds: normal S1 and normal S2; no murmur Vessels: no JVD Extremities: normal capillary refill; no edema Gastrointestinal (Abdomen) normal bowel sounds, soft, nontender, no hepatosplenomegaly Musculoskeletal Head/Neck/Chest: normocephalic, head atraumatic and neck supple Extremities: extremities normal to inspection and + abnormal strength (weakness of lower extremities bilaterally) Skin no rashes, warm and dry Neurologic patellar DTR's 2+ bilat, sensation intact and PERRL, EOMI, accommodation nl, no face palsy, no dysarthria Psychiatric Orientation: alert, oriented to person and oriented to place; + not oriented to time Lymphatic no cervical or axillary lymphadenopathy Discharge Data Allergies Allergy/AdvReac Type Severity Reaction Status Date / Time levofloxacin [From Levaquin] Allergy Unknown Unknown Unverified 05/04/20 07:57 Consultations 05/04/20 07:20 ED Decision to Admit Stat 05/04/20 12:43 Consult Case Management - Discharge Planning Routine Consult Gastroenterology Routine Ordered Studies 05/04/20 04:57 CT head/brain wo con Urgent 05/05/20 05:34 CT head/brain wo con Urgent Hospital Course (1) Sepsis: due to catheter associated UTI BP stable, no signs of shock, stop fluids 05/05 h/o E coli ESBL, initially on Ertapenem 1000mg IV daily urine culture with E coli and Proteus, sensitive, changed to Rocephin 2gm IV daily doing great, awake and oriented, baseline mental status discharge on Keflex 500mg BID x 7 more days of note, the griffiths was exchanged this admission (2) Catheter-associated urinary tract infection: history of such, past cultures grew out E coli, E coli that was ESBL, proteus covered with Ertapenem initially changed to Rocephin 05/06 no growth on blood cultures discharge on keflex (3) Hematemesis: reported coffee ground emesis, unsure if this was accurate h/o esophagitis but no ulcers Protonix 40mg IV BID, add Carafate consult [facility] gastroenterology, they have seen her before no plans for EGD, no evidence of acute bleeding repeat hemoglobin counts have remained stable advance diet 05/06, tolerated well continue Protonix PO on discharge (4) [place] grade C esophagitis: as above, history of this used Protonix 40mg IV BID Carafate QID (5) DVT (deep venous thrombosis): h/o this diagnosis, hold anticoagulation with possible GI bleed SCD for DVT prophylaxis resume Apixaban 05/06 (6) Paraplegia: chronic issue, due to MS, resides at SNF (7) HTN (hypertension): BP elevated today, resume Diltiazem 120mg qAM this morning (8) SVT (supraventricular tachycardia): h/o paroxysmal SVT, had a few episodes while admitted continue Diltiazem 120mg qAM no SVT since Diltiazem resumed, downgrade to medical floor (9) Hypokalemia: improved to 3.6 continue Potassium 20mg BID Total Time Total Time Spent Total Time Spent (In Minutes): 33 minutes Total Time Includes: Examination of the Patient, Discharge Planning, Medication Reconciliation and Other (spoke with both of her sons over the phone) Discharge Plan Discharge Items Patient Disposition: Transfer [facility] Reason For Visit: UTI,SEPSIS,VOMITING Discharge Diagnosis: Catheter associated UTI, Proteus and E coli Sepsis Nausea/vomiting, history of esphagitis Condition on Discharge: Good Activity: Resume your previous activity Non-emergency contact: Primary Care Provider Call non-emergency contact if: you have any medication questions and your symptoms worsen Follow-up/Referrals: [facility] [Primary Care Provider] - (this week) Diet: Regular Addtl Attending Provider Instructions: Medications: prior medications can continue - KEFLEX: 500mg twice a day for 7 more days, received 5 days of IV antibiotics - PROTONIX: 40mg daily for esophagitis Sepsis due to catheter associated UTI urine culture grew out E coli and Proteus initially treated with Ertapenem due to ESBL history but these strains are not ESBL so changed to Rocephin no fever, WBC normal, mental status at baseline will transfer to [facility], complete course of Keflex of note, her catheter was exchanged on 05/05 Vomiting on admission, possible hematemesis per report never vomited again, Hb stable for days, no melena no clinical reason to suspect GI bleed, no EGD performed treated with Protonix IV continue Protonix 40mg PO daily, Pepcid, Carafate Pending Studies at Discharge: No Stand-Alone Forms: [facility] Skilled Items Patient informed of condition?: Yes DNR: Yes Discharge Level of Care: Skilled Communicable Disease: No Discharge Prognosis: Stable Lines: None Urinary Catheter: Yes (chronic, was exchanged on 05/05) Medications and DC Order Prescriptions: New pantoprazole 40 mg Tablet,Delayed Release (Dr/Ec) 40 mg PO DAILY 30 Days Qty: 30 RF: 0 cephalexin [Keflex] 500 mg capsule 500 mg PO BID 7 Days Qty: 14 RF: 0 Continued tramadol 50 mg tablet 50 mg PO Q6H Qty: 30 RF: 0 cholecalciferol (vitamin D3) [Vitamin D3] 2,000 unit Tablet 2,000 unit PO QAM RF: 0 cyanocobalamin (vitamin B-12) [Vitamin B-12] 1,000 mcg Tablet 1,000 mcg PO QAM RF: 0 glatiramer [Copaxone] 20 mg/mL Syringe 20 mg SUBCUT QAM RF: 0 gabapentin 600 mg Tablet 1,200 mg PO BID RF: 0 citalopram 10 mg Tablet 10 mg PO DAILY RF: 0 diltiazem HCl 120 mg Capsule,Extended Release 24 Hr 120 mg PO DAILY RF: 0 lidocaine 5 % Adhesive Patch,Medicated 1 patch TOPICAL QAM RF: 0 multivitamin with minerals Tablet 1 tab PO DAILY RF: 0 potassium chloride [Klor-Con M10] 10 mEq Tablet,Er Particles/Crystals 20 meq PO DAILY RF: 0 sucralfate 100 mg/mL suspension 10 ml PO QID RF: 0 famotidine 20 mg tablet 20 mg PO BID RF: 0 Eliquis 5 mg tablet 5 mg PO BID RF: 0 atorvastatin 40 mg Tablet 40 mg PO HS RF: 0 acetaminophen 325 mg Tablet 325 mg PO QID PRN (Reason: Pain) RF: 0 loperamide 2 mg Capsule 2 mg PO Q6H PRN (Reason: Diarrhea) RF: 0 Discharge Orders: Discharge Order (Routine); Ordered 05/08/20 Ordered By: Ted Lopez Admission Data Admit Date/Time: 05/04/20 07:15 Attending Provider: Ted Lopez Admit Provider: Ted Lopez Primary Care Provider: Connie Cuenca Other Providers: Ted Lopez ; Luis Null Other Interventions: Discharge Summary Assessment (RN) Last Done: 05/08/20 13:33 Coding Level of Care Code D/C Day Management >30 mins Diagnoses Sepsis A41.9 Catheter-associated urinary tract infection T83.511A; N39.0 Hematemesis K92.0 Nausea presence: unspecified [place] grade C esophagitis K20.8 DVT (deep venous thrombosis) I82.409 Paraplegia G82.20 HTN (hypertension) I10 Hypertension type: essential hypertension SVT (supraventricular tachycardia) I47.1 Hypokalemia E87.6
[2020-05-08] MEDS ORDERED: PANTOprazole 40 MG TAB PO SCH (21:00)
== END 2020-05-08 14:16 | DRG 698 ==
LOC: ED 04:48 → 2S 07:15 → 3N 05-06 09:34

== ENCOUNTER 2022-01-17 11:43 | Inpatient (IN) ==
[2022-01-17] MEDS ORDERED: MEROPENEM 1,000 MG in SYRINGE 0 ML IV STA (12:11)
[2022-01-17] MEDS ORDERED: ACETAMINOPHEN 1,000 MG/100 ML VIAL IV STA (12:11)
[2022-01-17 12:12] LABS: Basophils # (auto) 0.03 K/uL (0-0.2); Basophils % (auto) 0.1 %; Eosinophils # (auto) 0.04 K/uL (0-0.5); Eosinophils % (auto) 0.2 %; Hematocrit (blood only) 35.3 % (37-47); Hemoglobin 11.1 g/dL (12.0-16.0); Immature Granulocytes # (auto) 0.06 K/uL (0.00-0.02); Immature Granulocytes % (auto) 0.3 %; Lymphocytes # (auto) 1.31 K/uL (1.2-3.4); Lymphocytes % (auto) 6.5 %; Mean Corpuscular Hemoglobin 28.4 pg (25-34); Mean Corpuscular Hgb Conc 31.4 g/dL (32-36); Mean Corpuscular Volume 90.3 fL (80-100); Mean Platelet Volume 9.8 fL (7.4-10.4); Monocytes # (auto) 1.12 K/uL (0.11-0.59); Monocytes % (auto) 5.5 %; Neutrophils # (auto) 17.74 K/uL (1.4-6.5); Neutrophils % (auto) 87.4 %; Platelet Count 414 K/uL (130-400); RDW Coefficient of Variation 15.3 % (11.5-14.5); RDW Standard Deviation 50.7 fL (36.4-46.3); Red Blood Count 3.91 M/uL (4.2-5.4)
[2022-01-17] MEDS ORDERED: SODIUM CHLORIDE 0.9% 1000ML 2,000 ML IV ONE (12:15)
[2022-01-17] MEDS ORDERED: VANCOMYCIN HCL 2,500 MG in SODIUM CHLORIDE 0.9% 500 ML IV ONE (12:15)
[2022-01-17] MEDS ORDERED: VANCOMYCIN CONSULT ACTIVE PRN (12:15)
--- NOTE | 2022-01-17 12:23 | Emergency Department Note ---
Impression & Plan Sepsis, Abscess or cellulitis of chest wall, History of multiple sclerosis, Leukocytosis ED Provider Note NAME: CJ KEITA AGE: 81 SEX: F ARRIVES VIA: Ambulance INFORMANT: Patient, EMS ED PROVIDER(S): Nicola Tracey MD CHIEF COMPLAINT: Abscess, fever, referred PLAN: Disposition: Admit MEDICAL DECISION MAKING: The patient is a pleasant 80-year-old woman with a past medical history of MS, ESBL E. coli UTI, paraplegia as emerged department from her intermediate facility at [facility] for evaluation of a "cyst" that was noticed today and was draining pus with patient having fevers. Blood work was performed this morning and demonstrated a leukocytosis of 17K. The patient is a poor historian. The patient is acute on chronically ill-appearing, febrile to 38.2 with heart rate in the 100s and vital signs otherwise stable. She has large area of induration, erythema warmth and tenderness underneath the left breast that extends to the midline where there is an area of fluctuance with a punctate wound that is actively draining purulent discharge that is foul-smelling. This was cultured. No crepitus. This provider expressed significant amounts of purulent drainage decompressing the area of fluctuance underneath the punctate wound. Treatment for sepsis initiated. Given the patient has a history of ESBL E. coli UTI which has at times been intermediate to Zosyn treatment was initiated with meropenem with the addition of vancomycin. EKG without overt acute ischemia. Chest x-ray with question of aspiration pneumonitis however may be related to patient rotation. WBC 20K with neutrophil predominant increased from this morning. H/H similar to prior range of values. Platelets 414K similar to prior. Chemistry without m etabolic acidosis. Lactic acid 1.6, within normal limits. LFTs are unremarkable. Procalcitonin is 0.4, not significantly elevated. UA from the patient's [place] catheter is positive for nitrates and leukoesterase. CT of the chest and abdomen pelvis was performed and demonstrates extensive cellulitis of the left chest wall and breast with subcutaneous emphysema which may represent associated fasciitis. No fluid collection to suggest abscess however given that the indurated/fluctuant areas were expressed and decompressed prior to CT imaging this likely explains absence of fluid collection. N onspecific findings of the sigmoid noted however the unrelated to patient's presentation. Case was d/w Dr. Jolley [facility] [place] who will evaluate the patient for admission. Case was additionally discussed with Lauren Villaseñor, general surgery PAC with Dr. Mcknight general surgery on-call. Triage Nursing notes reviewed and agree them. Prior medical records reviewed Vital Signs: reviewed and remarkable for fever, tachycardia. Differential diagnosis: Sepsis, UTI, pneumonia, metabolic, electrolyte abnormalities, cardiac sources, intracerebral event, toxicologic, neurologic, as well as other pathologies. ER treatment provided: See below. Diagnostics interpreted by me: ECG: Normal sinus rhythm, 72 bpm, PACs, no overt ST elevation or depression, QTC 435, QRS 76. Cardiac Monitoring: An order for continuous cardiac monitoring was placed and demonstrated normal sinus rhythm, 72 bpm, PACs. Laboratory studies: See below Imaging studies: See below Consultation(s): Case was d/w Dr. Jolley [facility] hospitalist who will evaluate the patient for admission. Case was additionally discussed with Lauren Villaseñor, general surgery PAC with Dr. Mcknight general surgery on-call. HPI: The patient is a pleasant 80-year-old woman with a past medical history of MS, ESBL E. coli UTI, paraplegia as emerged department from her intermediate facility at [facility] for evaluation of a "cyst" that was noticed today and was draining pus with patient having fevers. Blood work was performed this morning and demonstrated a leukocytosis of 17K. The patient is a poor historian. ROS: See above HPI for pertinent positives & negatives. A total of 10 systems reviewed and were otherwise negative. VITALS:See Below PHYSICAL EXAMINATION: GENERAL: Awake, alert, acute on chronically ill-appearing, in no distress, Morbidly obese HENT: Normocephalic, atraumatic. Oropharynx with dry mucous membranes and otherwise unremarkable. EYES: Normal conjunctiva. Sclera non-icteric. NECK: Supple. No nuchal rigidity. FROM. No JVD. RESPIRATORY: Clear to auscultation. CARDIAC: Regular rate, normal rhythm. Extremities warm and well perfused. Pulses equal. ABDOMEN: Soft, non-distended. No tenderness to palpation. No rebound or guarding. No masses. RECTAL: Deferred. MUSCULOSKELETAL: The back is symmetrical on inspection without obvious abnormality. There is no CVA tenderness to palpation. No joint edema. LOWER EXTREMITIES: Calves are equal size bilaterally and non-tender. No edema. No discoloration. NEURO: Alert to self. Pleasantly confused. At baseline paraplegia. SKIN: Large area of induration, erythema warmth and tenderness underneath the left breast that extends to the midline where there is an area of fluctuance with a punctate wound that is actively draining purulent discharge that is foul- smelling. This was cultured. Copious amounts of purulent drainage was additionally expressed. No crepitus. No jaundice noted. ED COURSE: Critical Care: I have personally spent greater than 95 minutes of critical care time in the di rect management of this patient. This includes bedside care, interpretation of diagnostic studies, and testing, discussion with consultants, patient, and family members, and other required patient management activities. This 95 minutes is in excess of all separately billable procedures. Nicola Tracey MD Past Med/Surg History Medical History (Updated 01/17/22 @ 23:17 by Nicola Tracey MD) Abnormal urinalysis Altered mental status Atrial flutter with rapid ventricular response Constipation Fever History of multiple sclerosis Left-sided weakness Lymphedema of left leg Multiple sclerosis Paraplegia SVT (supraventricular tachycardia) Trigeminal neuralgia of left side of face Urinary retention Family History Other Family history non-contributory Social History Smoking Status: Unknown if ever smoked Years Smoked: 52; Second Hand Exposure: No; Do You Dip or Chew Tobacco: No; Hx Alcohol Use: No Hx Substance Use: No Preferred Language: Northern Irish Communication Ability: Effective Careers Counsellor Required: No Beliefs That Will Affect Care: None Current Living Situation: Detention Current Living Situation Comment: Home Health Other Information That Helps Us Care for You: No Feels Safe at Home: Declines to Answer Assistive Devices: Oxygen - Continuous Allergies Allergies Allergy/AdvReac Type Severity Reaction Status Date / Time levofloxacin [From Levaquin] Allergy Unknown Unknown Unverified 01/17/22 13:00 Home Meds Home Medications Medication Instructions Recorded Confirmed cholecalciferol (vitamin D3) 50 2,000 unit PO QAM 06/14/18 01/17/22 mcg (2,000 unit) tablet (Vitamin D3) cyanocobalamin (vitamin B-12) 1,000 mcg PO QAM 06/14/18 01/17/22 1,000 mcg tablet (Vitamin B-12) glatiramer 20 mg/mL subcutaneous 20 mg SUBCUT QAM 06/14/18 01/17/22 syringe (Copaxone) citalopram 10 mg tablet 10 mg PO DAILY 12/01/19 01/17/22 gabapentin 600 mg tablet 1,200 mg PO BID 12/01/19 01/17/22 multivitamin with minerals 1 tab PO DAILY 12/01/19 01/17/22 potassium chloride 10 mEq 20 meq PO DAILY 12/01/19 01/17/22 tablet,extended release(part/cryst) (Klor-Con M) acetaminophen 325 mg tablet 650 mg PO Q6 PRN 05/04/20 01/17/22 loperamide 2 mg capsule 2 mg PO Q6H PRN 05/04/20 01/17/22 Saccharomyces boulardii 250 mg 10,000 mmu cells PO BID 01/17/22 01/17/22 capsule (Florastor) ascorbic acid (vitamin C) 1,000 mg 1 g PO BID 01/17/22 01/17/22 tablet (Vitamin C) cephalexin 500 mg capsule 500 mg PO TID 01/17/22 01/17/22 dextran 70-hypromellose eye drops 2 drp OPHTHALMIC (EYE) Q8 PRN 01/17/22 01/17/22 in a dropperette (Artificial Tears (PF)) diltiazem HCl 120 mg 120 mg PO DAILY 01/17/22 01/17/22 capsule,extended release 24 hr, controlled (DILT-XR) food supplemt, lactose-reduced 1 ea PO .EVERY AFTERNOON 01/17/22 01/17/22 (Protein Nutritional Shake) lip protective (padimate o) 1 ea TOPICAL QPM 01/17/22 01/17/22 methenamine hippurate 1 gram tablet 1 g PO BID 01/17/22 01/17/22 pantoprazole 40 mg tablet,delayed 40 mg PO BID 01/17/22 01/17/22 release sulfamethoxazole 800 1 tab PO Q12 01/17/22 01/17/22 mg-trimethoprim 160 mg tablet tramadol 50 mg tablet 100 mg PO TID 01/17/22 01/17/22 warfarin 5 mg tablet 5 mg PO HS 01/17/22 01/17/22 Results & Data (ED) Vital Signs Vital Signs - 24 hr 01/17/22 11:33 01/17/22 11:53 01/17/22 13:00 Temperature 38.2 C H Temperature Source Oral Pulse Rate 81 81 75 Pulse Rate [Apical] Pulse Rate from SpO2 Sensor Pulse Rhythm Regular Regular Pulse Rhythm [Apical] Pulse Strength Normal Pulse Strength [Apical] Respiratory Rate 20 20 17 Respiratory Effort / Characteristics Non-Labored Non-Labored Respiratory Depth Normal Respiratory Pattern Regular Blood Pressure 119/57 L 107/48 L Blood Pressure [Left Arm] Blood Pressure Mean 77 67 Blood Pressure Mean [Left Arm] Blood Pressure Position Lying Blood Pressure Position [Left Arm] Pulse Oximetry 99 99 99 Oxygen Delivery Method Nasal Cannula Nasal Cannula Oxygen Flow Rate 4 4 Sepsis Recent Fever Within 48 Hours Yes Sepsis New/Unexplained Change in Mental Status No Sepsis Action Taken by Nursing No Action Required 01/17/22 13:10 01/17/22 13:20 01/17/22 13:43 Temperature Temperature Source Pulse Rate 73 68 Pulse Rate [Apical] Pulse Rate from SpO2 Sensor 73 68 76 Pulse Rhythm Pulse Rhythm [Apical] Pulse Strength Pulse Strength [Apical] Respiratory Rate 20 22 Respiratory Effort / Characteristics Respiratory Depth Respiratory Pattern Blood Pressure Blood Pressure [Left Arm] Blood Pressure Mean Blood Pressure Mean [Left Arm] Blood Pressure Position Blood Pressure Position [Left Arm] Pulse Oximetry 99 99 98 Oxygen Delivery Method Oxygen Flow Rate Sepsis Recent Fever Within 48 Hours Sepsis New/Unexplained Change in Mental Status Sepsis Action Taken by Nursing 01/17/22 13:50 01/17/22 14:00 01/17/22 14:10 Temperature Temperature Source Pulse Rate Pulse Rate [Apical] Pulse Rate from SpO2 Sensor 64 66 68 Pulse Rhythm Pulse Rhythm [Apical] Pulse Strength Pulse Strength [Apical] Respiratory Rate Respiratory Effort / Characteristics Respiratory Depth Respiratory Pattern Blood Pressure 115/44 L Blood Pressure [Left Arm] Blood Pressure Mean 67 Blood Pressure Mean [Left Arm] Blood Pressure Position Blood Pressure Position [Left Arm] Pulse Oximetry 98 98 99 Oxygen Delivery Method Oxygen Flow Rate Sepsis Recent Fever Within 48 Hours Sepsis New/Unexplained Change in Mental Status Sepsis Action Taken by Nursing 01/17/22 14:20 01/17/22 14:30 01/17/22 14:40 Temperature Temperature Source Pulse Rate Pulse Rate [Apical] 63 Pulse Rate from SpO2 Sensor 61 61 Pulse Rhythm Pulse Rhythm [Apical] Regular Pulse Strength Pulse Strength [Apical] Normal Respiratory Rate 18 Respiratory Effort / Characteristics Non-Labored Respiratory Depth Normal Respiratory Pattern Regular Blood Pressure 101/37 L Blood Pressure [Left Arm] 98/52 L Blood Pressure Mean 58 Blood Pressure Mean [Left Arm] 67 Blood Pressure Position Blood Pressure Position [Left Arm] Lying Pulse Oximetry 100 99 99 Oxygen Delivery Method Nasal Cannula Nasal Cannula Oxygen Flow Rate 4 4 Sepsis Recent Fever Within 48 Hours Sepsis New/Unexplained Change in Mental Status Sepsis Action Taken by Nursing 01/17/22 15:00 Temperature Temperature Source Pulse Rate Pulse Rate [Apical] Pulse Rate from SpO2 Sensor 62 Pulse Rhythm Pulse Rhythm [Apical] Pulse Strength Pulse Strength [Apical] Respiratory Rate Respiratory Effort / Characteristics Respiratory Depth Respiratory Pattern Blood Pressure 104/43 L Blood Pressure [Left Arm] Blood Pressure Mean 63 Blood Pressure Mean [Left Arm] Blood Pressure Position Blood Pressure Position [Left Arm] Pulse Oximetry 99 Oxygen Delivery Method Nasal Cannula Oxygen Flow Rate 4 Sepsis Recent Fever Within 48 Hours Sepsis New/Unexplained Change in Mental Status Sepsis Action Taken by Nursing Laboratory Data Attestation: I reviewed the patient's lab results. Result diagrams: 01/17/22 21:56 01/17/22 21:56 Lab Results 01/17/22 01/17/22 01/17/22 Range/Units 11:55 11:55 11:55 WBC 20.30 H (4.8-10.8) K/uL RBC 3.91 L (4.2-5.4) M/uL Hgb 11.1 L (12.0-16.0) g/dL Hct 35.3 L (37-47) % MCV 90.3 (80-100) fL MCH 28.4 (25-34) pg MCHC 31.4 L (32-36) g/dL RDW Std Deviation 50.7 H (36.4-46.3) fL RDW Coeff of Aparna 15.3 H (11.5-14.5) % Plt Count 414 H (130-400) K/uL MPV 9.8 (7.4-10.4) fL Immature Gran % (Auto) 0.3 % Neut % (Auto) 87.4 % Lymph % (Auto) 6.5 % [place] % (Auto) 5.5 % Eos % (Auto) 0.2 % Baso % (Auto) 0.1 % Neut # (Auto) 17.74 H (1.4-6.5) K/uL Lymph # (Auto) 1.31 (1.2-3.4) K/uL [place] # (Auto) 1.12 H (0.11-0.59) K/uL Eos # (Auto) 0.04 (0-0.5) K/uL Baso # (Auto) 0.03 (0-0.2) K/uL Immature Gran # (Auto) 0.06 H (0.00-0.02) K/uL PT Cancelled INR Cancelled APTT Cancelled PTT Ratio Cancelled Fibrinogen (184-400) mg/dl Sodium 136 (136-145) mmol/L Potassium 3.9 (3.5-5.1) mmol/L Chloride 101 (98-107) mmol/L Carbon Dioxide 28 (21-32) mmol/L Anion Gap 7 (3-11) BUN 21 (6-23) mg/dl Creatinine 0.88 (0.6-1.2) mg/dl Est Cr Clr Drug Dosing 55.7 ml/min Est GFR ( Amer) 70.4 ml/min Est GFR (Non-Af Amer) 60.8 ml/min BUN/Creatinine Ratio 23.9 H (10-20) Glucose 126 H (70-99(Fasting)) mg/dl Lactate (0.4-2.0) mmol/L Calcium 8.9 (8.5-10.1) mg/dl Phosphorus 2.7 (2.5-4.9) mg/dl Magnesium 2.0 (1.7-2.4) mg/dl Total Bilirubin 0.3 (0.2-1.0) mg/dl AST 16 (13-39) U/L ALT 13 (7-52) U/L Alkaline Phosphatase 100 (34-104) U/L Total Creatine Kinase (26-192) U/L C-Reactive Protein (0-0.5) mg/dl Total Protein 6.8 (6.0-8.3) gm/dl Albumin 3.1 L (3.4-5.0) gm/dl Globulin 3.7 (2.5-4.0) gm/dl Albumin/Globulin Ratio 0.8 L (0.9-2) Procalcitonin Urine Color Urine Appearance (Clear) Urine pH (4.5-7.5) Ur Specific [place] (1.000-1.030) Urine Protein (Negative) Urine Glucose (UA) (Negative) Urine Ketones (Negative) Urine Blood (Negative) Urine Nitrite (Negative) Urine Bilirubin (Negative) Urine Urobilinogen (Negative) Ur Leukocyte Esterase (Negative) Urine RBC (0-4) /hpf Urine WBC (0-5) /hpf Ur Epithelial Cells (0-5) /lpf Urine Bacteria (Negative) SARS-CoV-2 (PCR) (Negative) Influenza Type A (PCR) (Neg) Influenza Type B (PCR) (Neg) RSV (RT-PCR) (Neg) 01/17/22 01/17/22 01/17/22 Range/Units 11:55 11:55 12:52 WBC (4.8-10.8) K/uL RBC (4.2-5.4) M/uL Hgb (12.0-16.0) g/dL Hct (37-47) % MCV (80-100) fL MCH (25-34) pg MCHC (32-36) g/dL RDW Std Deviation (36.4-46.3) fL RDW Coeff of Aparna (11.5-14.5) % Plt Count (130-400) K/uL MPV (7.4-10.4) fL Immature Gran % (Auto) % Neut % (Auto) % Lymph % (Auto) % [place] % (Auto) % Eos % (Auto) % Baso % (Auto) % Neut # (Auto) (1.4-6.5) K/uL Lymph # (Auto) (1.2-3.4) K/uL [place] # (Auto) (0.11-0.59) K/uL Eos # (Auto) (0-0.5) K/uL Baso # (Auto) (0-0.2) K/uL Immature Gran # (Auto) (0.00-0.02) K/uL PT INR APTT PTT Ratio Fibrinogen (184-400) mg/dl Sodium (136-145) mmol/L Potassium (3.5-5.1) mmol/L Chloride (98-107) mmol/L Carbon Dioxide (21-32) mmol/L Anion Gap (3-11) BUN (6-23) mg/dl Creatinine (0.6-1.2) mg/dl Est Cr Clr Drug Dosing ml/min Est GFR ( Amer) ml/min Est GFR (Non-Af Amer) ml/min BUN/Creatinine Ratio (10-20) Glucose (70-99(Fasting)) mg/dl Lactate 1.6 (0.4-2.0) mmol/L Calcium (8.5-10.1) mg/dl Phosphorus (2.5-4.9) mg/dl Magnesium (1.7-2.4) mg/dl Total Bilirubin (0.2-1.0) mg/dl AST (13-39) U/L ALT (7-52) U/L Alkaline Phosphatase (34-104) U/L Total Creatine Kinase (26-192) U/L C-Reactive Protein (0-0.5) mg/dl Total Protein (6.0-8.3) gm/dl Albumin (3.4-5.0) gm/dl Globulin (2.5-4.0) gm/dl Albumin/Globulin Ratio (0.9-2) Procalcitonin Cancelled 0.40 Urine Color Urine Appearance (Clear) Urine pH (4.5-7.5) Ur Specific [place] (1.000-1.030) Urine Protein (Negative) Urine Glucose (UA) (Negative) Urine Ketones (Negative) Urine Blood (Negative) Urine Nitrite (Negative) Urine Bilirubin (Negative) Urine Urobilinogen (Negative) Ur Leukocyte Esterase (Negative) Urine RBC (0-4) /hpf Urine WBC (0-5) /hpf Ur Epithelial Cells (0-5) /lpf Urine Bacteria (Negative) SARS-CoV-2 (PCR) (Negative) Influenza Type A (PCR) (Neg) Influenza Type B (PCR) (Neg) RSV (RT-PCR) (Neg) 01/17/22 01/17/22 01/17/22 Range/Units 12:52 12:58 12:58 WBC (4.8-10.8) K/uL RBC (4.2-5.4) M/uL Hgb (12.0-16.0) g/dL Hct (37-47) % MCV (80-100) fL MCH (25-34) pg MCHC (32-36) g/dL RDW Std Deviation (36.4-46.3) fL RDW Coeff of Aparna (11.5-14.5) % Plt Count (130-400) K/uL MPV (7.4-10.4) fL Immature Gran % (Auto) % Neut % (Auto) % Lymph % (Auto) % [place] % (Auto) % Eos % (Auto) % Baso % (Auto) % Neut # (Auto) (1.4-6.5) K/uL Lymph # (Auto) (1.2-3.4) K/uL [place] # (Auto) (0.11-0.59) K/uL Eos # (Auto) (0-0.5) K/uL Baso # (Auto) (0-0.2) K/uL Immature Gran # (Auto) (0.00-0.02) K/uL PT 31.6 H INR 3.2 H APTT 50.7 H* PTT Ratio 1.8 Fibrinogen (184-400) mg/dl Sodium (136-145) mmol/L Potassium (3.5-5.1) mmol/L Chloride (98-107) mmol/L Carbon Dioxide (21-32) mmol/L Anion Gap (3-11) BUN (6-23) mg/dl Creatinine (0.6-1.2) mg/dl Est Cr Clr Drug Dosing ml/min Est GFR ( Amer) ml/min Est GFR (Non-Af Amer) ml/min BUN/Creatinine Ratio (10-20) Glucose (70-99(Fasting)) mg/dl Lactate (0.4-2.0) mmol/L Calcium (8.5-10.1) mg/dl Phosphorus (2.5-4.9) mg/dl Magnesium (1.7-2.4) mg/dl Total Bilirubin (0.2-1.0) mg/dl AST (13-39) U/L ALT (7-52) U/L Alkaline Phosphatase (34-104) U/L Total Creatine Kinase (26-192) U/L C-Reactive Protein (0-0.5) mg/dl Total Protein (6.0-8.3) gm/dl Albumin (3.4-5.0) gm/dl Globulin (2.5-4.0) gm/dl Albumin/Globulin Ratio (0.9-2) Procalcitonin Urine Color Yellow Urine Appearance Slightly Cloudy (Clear) Urine pH 6.0 (4.5-7.5) Ur Specific [place] >= 1.030 (1.000-1.030) Urine Protein 1+ H (Negative) Urine Glucose (UA) Negative (Negative) Urine Ketones Negative (Negative) Urine Blood Trace-intact H (Negative) Urine Nitrite Positive A (Negative) Urine Bilirubin Negative (Negative) Urine Urobilinogen Negative (Negative) Ur Leukocyte Esterase 1+ H (Negative) Urine RBC 5-10 H (0-4) /hpf Urine WBC >30 H (0-5) /hpf Ur Epithelial Cells 5-10 H (0-5) /lpf Urine Bacteria 3+ H (Negative) SARS-CoV-2 (PCR) NEGATIVE (Negative) Influenza Type A (PCR) Negative (Neg) Influenza Type B (PCR) Negative (Neg) RSV (RT-PCR) Negative (Neg) 01/17/22 01/17/22 Range/Units 14:56 14:56 WBC (4.8-10.8) K/uL RBC (4.2-5.4) M/uL Hgb (12.0-16.0) g/dL Hct (37-47) % MCV (80-100) fL MCH (25-34) pg MCHC (32-36) g/dL RDW Std Deviation (36.4-46.3) fL RDW Coeff of Aparna (11.5-14.5) % Plt Count (130-400) K/uL MPV (7.4-10.4) fL Immature Gran % (Auto) % Neut % (Auto) % Lymph % (Auto) % [place] % (Auto) % Eos % (Auto) % Baso % (Auto) % Neut # (Auto) (1.4-6.5) K/uL Lymph # (Auto) (1.2-3.4) K/uL [place] # (Auto) (0.11-0.59) K/uL Eos # (Auto) (0-0.5) K/uL Baso # (Auto) (0-0.2) K/uL Immature Gran # (Auto) (0.00-0.02) K/uL PT INR APTT PTT Ratio Fibrinogen 640 H (184-400) mg/dl Sodium (136-145) mmol/L Potassium (3.5-5.1) mmol/L Chloride (98-107) mmol/L Carbon Dioxide (21-32) mmol/L Anion Gap (3-11) BUN (6-23) mg/dl Creatinine (0.6-1.2) mg/dl Est Cr Clr Drug Dosing ml/min Est GFR ( Amer) ml/min Est GFR (Non-Af Amer) ml/min BUN/Creatinine Ratio (10-20) Glucose (70-99(Fasting)) mg/dl Lactate (0.4-2.0) mmol/L Calcium (8.5-10.1) mg/dl Phosphorus (2.5-4.9) mg/dl Magnesium (1.7-2.4) mg/dl Total Bilirubin (0.2-1.0) mg/dl AST (13-39) U/L ALT (7-52) U/L Alkaline Phosphatase (34-104) U/L Total Creatine Kinase 14 L (26-192) U/L C-Reactive Protein 19.02 H (0-0.5) mg/dl Total Protein (6.0-8.3) gm/dl Albumin (3.4-5.0) gm/dl Globulin (2.5-4.0) gm/dl Albumin/Globulin Ratio (0.9-2) Procalcitonin Urine Color Urine Appearance (Clear) Urine pH (4.5-7.5) Ur Specific [place] (1.000-1.030) Urine Protein (Negative) Urine Glucose (UA) (Negative) Urine Ketones (Negative) Urine Blood (Negative) Urine Nitrite (Negative) Urine Bilirubin (Negative) Urine Urobilinogen (Negative) Ur Leukocyte Esterase (Negative) Urine RBC (0-4) /hpf Urine WBC (0-5) /hpf Ur Epithelial Cells (0-5) /lpf Urine Bacteria (Negative) SARS-CoV-2 (PCR) (Negative) Influenza Type A (PCR) (Neg) Influenza Type B (PCR) (Neg) RSV (RT-PCR) (Neg) Administered Medications Lactated Ringer's (Lr) 1,000 mls @ 110 mls/hr IV .Q9H6M COUNT INCLUDES THE [facility] Stop: 02/16/22 16:35 Last Admin: 01/17/22 17:11 Dose: 110 mls/hr Documented by: [id number] Acetaminophen (Ofirmev) 1,000 mg in 100 mls @ 400 mls/hr IV Q8H JAVID Stop: 01/20/22 21:59 Last Infusion: 01/17/22 21:25 Dose: 0 mls/hr Documented by: [id number] Admin: 01/17/22 21:10 Dose: 400 mls/hr Documented by: [id number] Famotidine 20 mg/ Syringe 5 mls @ 2.5 mls/min IV BID JAVID Stop: 02/16/22 20:59 Last Admin: 01/17/22 21:10 Dose: 2.5 mls/min Documented by: [id number] Fentanyl Citrate (Fentanyl Citrate) 2,500 mcg in 250 mls @ 2.5 mls/hr IV .Q96H COUNT INCLUDES THE [facility]; Protocol Stop: 01/31/22 20:59 Last Admin: 01/17/22 21:11 Dose: 25 mcg/hr, 2.5 mls/hr Documented by: [id number] Cosigned by: [id number] Propofol (Diprivan) 1,000 mg in 100 mls @ 12.42 mls/hr IV .Q8H4M JAVID; Protocol Stop: 01/20/22 20:59 Last Admin: 01/17/22 21:12 Dose: 20 mcg/kg/min, 12.4 mls/hr Documented by: [id number] Cosigned by: [id number] Propofol (Propofol Bolus From Bag) 20 mg IV Q5M PRN PRN Reason: Sedation Stop: 01/20/22 20:50 Last Admin: 01/17/22 21:13 Dose: 20 mg Documented by: [id number] Cosigned by: [id number] Discontinued Medications Fentanyl Citrate (Fentanyl Citrate 2,500 Mcg/250 Ml Bag) Confirm Administered Dose 2,500 mcg IV .STK-MED ONE Stop: 01/17/22 20:57 Last Admin: 01/17/22 21:11 Dose: Not Given Documented by: [id number] Acetaminophen (Ofirmev) 1,000 mg in 100 mls @ 400 mls/hr IV NOW STA Stop: 01/17/22 12:25 Last Infusion: 01/17/22 13:08 Dose: 0 mls/hr Documented by: [id number] Admin: 01/17/22 12:53 Dose: 400 mls/hr Documented by: [id number] Meropenem 1,000 mg/ Syringe 20 mls @ 2 mls/min IV NOW STA; Protocol Stop: 01/17/22 12:20 Last Admin: 01/17/22 13:11 Dose: 2 mls/min Documented by: [id number] Vancomycin HCl 2,500 mg/ (Sodium Chloride) 550 mls @ 200 mls/hr IV NOW ONE Stop: 01/17/22 14:59 Last Infusion: 01/17/22 17:39 Dose: 0 mls/hr Documented by: [id number] Admin: 01/17/22 13:12 Dose: 200 mls/hr Documented by: [id number] Sodium Chloride (Nss 1000ml) 2,000 mls @ 999 mls/hr IV .Q2H1M ONE Stop: 01/17/22 14:15 Last Infusion: 01/17/22 15:31 Dose: 0 mls/hr Documented by: [id number] Admin: 01/17/22 12:51 Dose: 999 mls/hr Documented by: [id number] Phytonadione 10 mg/ Dextrose 51 mls @ 102 mls/hr IV ONE ONE Stop: 01/17/22 15:59 Last Infusion: 01/17/22 17:26 Dose: 0 mls/hr Documented by: [id number] Admin: 01/17/22 17:00 Dose: 102 mls/hr Documented by: [id number] Linezolid (Zyvox) 600 mg in 300 mls @ 300 mls/hr IV ONE STA Stop: 01/17/22 16:30 Last Infusion: 01/17/22 18:36 Dose: 0 mls/hr Documented by: [id number] Admin: 01/17/22 17:36 Dose: 300 mls/hr Documented by: [id number] Clindamycin Phosphate (Cleocin/D5w) 900 mg in 50 mls @ 100 mls/hr IV NOW STA Stop: 01/17/22 15:57 Last Infusion: 01/17/22 17:26 Dose: 0 mls/hr Documented by: [id number] Admin: 01/17/22 17:00 Dose: 100 mls/hr Documented by: [id number] Piperacillin Sod/Tazobactam (Sod 3.375 gm/ Dextrose) 115 mls @ 230 mls/hr IV NOW ONE; Protocol Stop: 06/29/22 17:29 Last Infusion: 01/17/22 18:06 Dose: 0 mls/hr Documented by: [id number] Admin: 01/17/22 17:36 Dose: 230 mls/hr Documented by: [id number] Prothrombin Complex Concent ( (Human) 2,500 units/ Syringe) 100 mls @ 10 mls/min IV TODAY@1715 COUNT INCLUDES THE [facility]; Protocol Stop: 01/17/22 18:15 Last Admin: 01/17/22 17:40 Dose: 10 mls/min Documented by: [id number] Ioversol (Optiray 320 100ml) 95 ml IV ONCE ONE Stop: 01/17/22 13:46 Last Admin: 01/17/22 13:36 Dose: 95 ml Documented by: [id number] Propofol (Propofol Iv Emulsion 10 Mg/Ml 100 Ml Vial) Confirm Administered Dose 1,000 mg IV .STK-MED ONE Stop: 01/17/22 20:53 Last Admin: 01/17/22 21:11 Dose: Not Given Documented by: [id number] Imaging Data Radiologist's Impression: Chest X-Ray 01/17/22 11:53 XR chest 1V portable CLINICAL HISTORY: SEPSIS TECHNIQUE: Single frontal radiograph of the chest was obtained. Comparison: Comparison is made to chest radiograph 05/04/2020 FINDINGS: Exam is limited by patient rotation. The cardiomediastinal silhouette is normal. Airspace opacity is seen in the right lower lung, new from prior exam. Prominence of the pulmonary vasculature is seen. No evidence of pleural effusion or pneumothorax. IMPRESSION: 1. Right lower lung airspace opacity which may represent atelectasis, pneumonia, and/or aspiration. 2. Mild pulmonary edema is seen. ACT 112: Negative or not required by law. Electronically signed by: Ted Armstrong M.D. 01/17/2022 12:[address] 01/17/22 12:18 CT CHEST WITH IV CONTRAST; ABDOMEN AND PELVIS CT WITH IV CONTRAST HISTORY: Acute left chest wall soft tissue infection sepsis, chest wall abscess/cellulitis TECHNIQUE: Multiaxial CT images of the chest, abdomen and pelvis were performed following the IV administration of 95 cc of Optiray, A dose lowering technique was utilized adhering to the principles of ALARA. COMPARISON STUDY: Chest radiograph of same day, CT abdomen and pelvis 12/10/2018 FINDINGS: CT CHEST: There are a few subcentimeter hypodensities of the left thyroid lobe measuring up to 4 mm. There is no lymphadenopathy. Left axillary chain lymph nodes measure up to 9 mm are likely reactive. Moderate cardiomegaly with extensive coronary artery calcifications. Atherosclerosis of the thoracic aorta without aneurysm or dissection. The opacified pulmonary artery appears unremarkable. Left hemidiaphragmatic elevation. There is suggestion of mild pulmonary emphysema. No pneumothorax, large pleural effusion or overt pulmonary edema. Linear subsegmental left greater than right bibasilar opacities suggest atelectasis versus scarring. There is a subsegmental cluster of solid nodules in the anterior left upper lobe measuring up to 3 mm which are likely infectious or inflammatory. There is minimal left basilar mucous plugging. There is moderate subcutaneous edema with skin thickening and subcutaneous emphysema of the left chest wall/left breast. The left breast is partially outside the [id number]. There is no drainable fluid collection. Degenerative changes of the shoulders and spine. There is no acute fracture or destructive bone lesion identified. Mild wedge deformities of the upper thoracic spine are age-indeterminate however are favored to be chronic. Chronic moderate L1 compression deformity, stable from 2019. Mild inflammatory changes involve the anterior costochondral junctions of the left fourth through sixth ribs. CT ABDOMEN/PELVIS: No pneumatosis or pneumoperitoneum. Limited exam secondary to positioning and respiratory motion artifact. Unremarkable spleen, moderately atrophic pancreas and adrenal glands. Distended gallbladder without CT evidence of acute cholecystitis. Unremarkable liver. There is patency of the hepatic and portal veins. Cortical thinning of the bilateral kidneys. Exophytic 2.3 cm cyst of the superior pole left kidney. Additional subcentimeter hypodensities of the kidneys are too small to characterize. Decompressed urinary bladder with Gamboa catheter in place. Hysterectomy. Atherosclerosis of the aorta and branch vessels without aneurysm. There is no lymphadenopathy identified. Tiny hiatal hernia. There is no small bowel obstruction. Hyperdense stool is noted within the rectum. There is wall thickening of the distal sigmoid and rectum with mild perirectal inflammatory stranding and luminal narrowing. There is upstream gaseous distention of the sigmoid measuring up to 6.3 cm. Colonic diverticulosis. Moderate fecal retention. Noninflamed appendix. Degenerative changes of the spine, pelvis and hips severe right and moderate left degeneration of the hips. Lumbar levoscoliosis. Chronic L1 compression deformity. IMPRESSION: 1. Extensive cellulitis of the left chest wall and breast with subcutaneous emphysema which may represent associated fasciitis. No fluid collection to suggest abscess. 2. Associated inflammatory changes are noted surrounding the anterior costochondral junctions of the left fourth through sixth ribs. No cortical destruction to suggest osteomyelitis at this time. 3. Luminal narrowing with circumferential wall thickening of the distal sigmoid and rectum is noted with mild perirectal inflammatory stranding. Additionally, there is mild upstream gaseous distention of the proximal to mid sigmoid colon. Findings may secondary to partial distention, however a stricture or less likely a mucosal lesion could appear similarly. Correlation with colonoscopy recommende d. 4. No bowel obstruction. 5. Additional findings as above. ACT 112: Negative or not required by law. The above report was generated using voice recognition software. It may contain grammatical, syntax or spelling errors. Electronically signed by: Devaughn López M.D. 01/17/2022 2:20 PM Abdomen/Pelvis CT 01/17/22 12:32 CT CHEST WITH IV CONTRAST; ABDOMEN AND PELVIS CT WITH IV CONTRAST HISTORY: Acute left chest wall soft tissue infection sepsis, chest wall abscess/cellulitis TECHNIQUE: Multiaxial CT images of the chest, abdomen and pelvis were performed following the IV administration of 95 cc of Optiray, A dose lowering technique was utilized adhering to the principles of ALARA. COMPARISON STUDY: Chest radiograph of same day, CT abdomen and pelvis 12/10/2018 FINDINGS: CT CHEST: There are a few subcentimeter hypodensities of the left thyroid lobe measuring up to 4 mm. There is no lymphadenopathy. Left axillary chain lymph nodes measure up to 9 mm are likely reactive. Moderate cardiomegaly with extensive coronary artery calcifications. Atherosclerosis of the thoracic aorta without aneurysm or dissection. The opacified pulmonary artery appears unremarkable. Left hemidiaphragmatic elevation. There is suggestion of mild pulmonary emphysema. No pneumothorax, large pleural effusion or overt pulmonary edema. Linear subsegmental left greater than right bibasilar opacities suggest atelectasis versus scarring. There is a subsegmental cluster of solid nodules in the anterior left upper lobe measuring up to 3 mm which are likely infectious or inflammatory. There is minimal left basilar mucous plugging. There is moderate subcutaneous edema with skin thickening and subcutaneous emphysema of the left chest wall/left breast. The left breast is partially outside the [id number]. There is no drainable fluid collection. Degenerative changes of the shoulders and spine. There is no acute fracture or destructive bone lesion identified. Mild wedge deformities of the upper thoracic spine are age-indeterminate however are favored to be chronic. Chronic moderate L1 compression deformity, stable from 2019. Mild inflammatory changes involve the anterior costochondral junctions of the left fourth through sixth ribs. CT ABDOMEN/PELVIS: No pneumatosis or pneumoperitoneum. Limited exam secondary to positioning and respiratory motion artifact. Unremarkable spleen, moderately atrophic pancreas and adrenal glands. Distended gallbladder without CT evidence of acute cholecystitis. Unremarkable liver. There is patency of the hepatic and portal veins. Cortical thinning of the bilateral kidneys. Exophytic 2.3 cm cyst of the superior pole left kidney. Additional subcentimeter hypodensities of the kidneys are too small to characterize. Decompressed urinary bladder with Gamboa catheter in place. Hysterectomy. Atherosclerosis of the aorta and branch vessels without aneurysm. There is no lymphadenopathy identified. Tiny hiatal hernia. There is no small bowel obstruction. Hyperdense stool is noted within the rectum. There is wall thickening of the distal sigmoid and rectum with mild perirectal inflammatory stranding and luminal narrowing. There is upstream gaseous distention of the sigmoid measuring up to 6.3 cm. Colonic diverticulosis. Moderate fecal retention. Noninflamed appendix. Degenerative changes of the spine, pelvis and hips severe right and moderate left degeneration of the hips. Lumbar levoscoliosis. Chronic L1 compression deformi ty. IMPRESSION: 1. Extensive cellulitis of the left chest wall and breast with subcutaneous emphysema which may represent associated fasciitis. No fluid collection to suggest abscess. 2. Associated inflammatory changes are noted surrounding the anterior costochondral junctions of the left fourth through sixth ribs. No cortical destruction to suggest osteomyelitis at this time. 3. Luminal narrowing with circumferential wall thickening of the distal sigmoid and rectum is noted with mild perirectal inflammatory stranding. Additionally, there is mild upstream gaseous distention of the proximal to mid sigmoid colon. Findings may secondary to partial distention, however a stricture or less likely a mucosal lesion could appear similarly. Correlation with colonoscopy recommended. 4. No bowel obstruction. 5. Additional findings as above. ACT 112: Negative or not required by law. The above report was generated using voice recognition software. It may contain grammatical, syntax or spelling errors. Electronically signed by: Devaughn López M.D. 01/17/2022 2:20 PM Discharge Plan Visit Data Chief Complaint: Infection, Wound Stated Complaint: CYST ON L CHEST ED Provider: Nicola Tracey Discharge Problem: Sepsis, Abscess or cellulitis of chest wall, History of multiple sclerosis, Leukocytosis Patient Disposition: Admitted As Inpatient Discharge Instructions Interventions: ED Discharge Assessment Last Done: 01/17/22 16:00 Discharge Problem: Sepsis Qualifiers: Sepsis type: sepsis due to unspecified organism Sepsis acute organ dysfunction status: unspecified Qualified Code(s): A41.9 - Sepsis, unspecified organism Leukocytosis Qualifiers: Leukocytosis type: unspecified Qualified Code(s): D72.829 - Elevated white b lood cell count, unspecified
--- NOTE | 2022-01-17 12:34 | XRay Report ---
XR chest 1V portable CLINICAL HISTORY: SEPSIS TECHNIQUE: Single frontal radiograph of the chest was obtained. Comparison: Comparison is made to chest radiograph 05/04/2020 FINDINGS: Exam is limited by patient rotation. The cardiomediastinal silhouette is normal. Airspace opacity is seen in the right lower lung, new from prior exam. Prominence of the pulmonary vasculature is seen. N o evidence of pleural effusion or pneumothorax. IMPRESSION: 1. Right lower lung airspace opacity which may represent atelectasis, pneumonia, and/or aspiration. 2. Mild pulmonary edema is seen. ACT 112: Negative or not required by law. Electronically signed by: Ted Armstrong M.D. 01/17/2022 12:33 PM
[2022-01-17 12:35] LABS: Albumin Globulin Ratio 0.8 (0.9-2); Albumin Level 3.1 gm/dl (3.4-5.0); BUN Creatinine Ratio 23.9 (10-20); Bilirubin,Total 0.3 mg/dl (0.2-1.0); Calcium 8.9 mg/dl (8.5-10.1); Creatinine Clr Calc Pharmacy 55.7 ml/min; Est GFR (African American) 70.4 ml/min; Est GFR (Non-African American) 60.8 ml/min; Globulin 3.7 gm/dl (2.5-4.0); Phosphorus 2.7 mg/dl (2.5-4.9); Potassium 3.9 mmol/L (3.5-5.1); Total Protein 6.8 gm/dl (6.0-8.3)
[2022-01-17 13:44] LABS: Appearance Urine Slightly Cloudy (Clear); Bilirubin Urine Negative (Negative); Blood Urine Trace-intact (Negative); Color Urine Yellow; Glucose Urine UA Negative (Negative); Ketones Urine Negative (Negative); Leukocyte Esterase Urine 1+ (Negative); Nitrite Urine Positive (Negative); Protein Urine 1+ (Negative); Specific Gravity Urine >= 1.030 (1.000-1.030); Urobilinogen Urine Negative (Negative)
[2022-01-17] MEDS ORDERED: OPTIRAY 320 100ml IV ONE (13:45)
[2022-01-17 13:47] LABS: INR 3.2 (0.9-1.1); Partial Thromboplastin Ratio 1.8; Prothrombin Time 31.6 Seconds (9.0-12.0)
[2022-01-17 13:50] LABS: Partial Thromboplastin Time 50.7 Seconds (21.0-31.0)
[2022-01-17 13:55] LABS: Bacteria Urine 3+ (Negative); WBC Urine >30 /hpf (0-5)
[2022-01-17 14:04] LABS: Influenza A virus by PCR Negative (Neg); Influenza B virus by PCR Negative (Neg); RSV by PCR Negative (Neg); SARS CoV2 RNA(COVID-19) InHosp NEGATIVE (Negative)
--- NOTE | 2022-01-17 14:21 | CT Scan Report ---
CT CHEST WITH IV CONTRAST; ABDOMEN AND PELVIS CT WITH IV CONTRAST HISTORY: Acute left chest wall soft tissue infection sepsis, chest wall abscess/cellulitis TECHNIQUE: Multiaxial CT images of the chest, abdomen and pelvis were performed following the IV admi nistration of 95 cc of Optiray, A dose lowering technique was utilized adhering to the principles of ALARA. COMPARISON STUDY: Chest radiograph of same day, CT abdomen and pelvis 12/10/2018 FINDINGS: CT CHEST: There are a few subcentimeter hypodensities of the left thyroid lobe measuring up to 4 mm. There is no lymphadenopathy. Left axillary chain lymph nodes measure up to 9 mm are likely reactive. Moderate cardiomegaly with extensive coronary artery calcifications. Atherosclerosis of the thoracic aorta wit hout aneurysm or dissection. The opacified pulmonary artery appears unremarkable. Left hemidiaphragmatic elevation. There is suggestion of mild pulmonary emphysema. No pneumothorax, l arge pleural effusion or overt pulmonary edema. Linear subsegmental left greater than right bibasilar opacities suggest atelectasis versus scarring. There is a subsegmental cluster of solid nodules in t he anterior left upper lobe measuring up to 3 mm which are likely infectious or inflammatory. There i s minimal left basilar mucous plugging. There is moderate subcutaneous edema with skin thickening and subcutaneous emphysema of the left ches t wall/left breast. The left breast is partially outside the [id number]. There is no drainable flu id collection. Degenerative changes of the shoulders and spine. There is no acute fracture or destruc tive bone lesion identified. Mild wedge deformities of the upper thoracic spine are age-indeterminate however are favored to be chronic. Chronic moderate L1 compression deformity, stable from 2019. Mild inflammatory changes involve the anterior costochondral junctions of the left fourth through sixth r ibs. CT ABDOMEN/PELVIS: No pneumatosis or pneumoperitoneum. Limited exam secondary to positioning and respiratory motion jamel fact. Unremarkable spleen, moderately atrophic pancreas and adrenal glands. Distended gallbladder wit hout CT evidence of acute cholecystitis. Unremarkable liver. There is patency of the hepatic and port al veins. Cortical thinning of the bilateral kidneys. Exophytic 2.3 cm cyst of the superior pole left kidney. A dditional subcentimeter hypodensities of the kidneys are too small to characterize. Decompressed urin victor m bladder with Gamboa catheter in place. Hysterectomy. Atherosclerosis of the aorta and branch vesse ls without aneurysm. There is no lymphadenopathy identified. Tiny hiatal hernia. There is no small bowel obstruction. Hyperdense stool is noted within the rectum. There is wall thickening of the distal sigmoid and rectum with mild perirectal inflammatory strandin g and luminal narrowing. There is upstream gaseous distention of the sigmoid measuring up to 6.3 cm. Colonic diverticulosis. Moderate fecal retention. Noninflamed appendix. Degenerative changes of the s pine, pelvis and hips severe right and moderate left degeneration of the hips. Lumbar levoscoliosis. Chronic L1 compression deformity. IMPRESSION: 1. Extensive cellulitis of the left chest wall and breast with subcutaneous emphysema which may repre sent associated fasciitis. No fluid collection to suggest abscess. 2. Associated inflammatory changes are noted surrounding the anterior costochondral junctions of the left fourth through sixth ribs. No cortical destruction to suggest osteomyelitis at this time. 3. Luminal narrowing with circumferential wall thickening of the distal sigmoid and rectum is noted w ith mild perirectal inflammatory stranding. Additionally, there is mild upstream gaseous distention o f the proximal to mid sigmoid colon. Findings may secondary to partial distention, however a strictur e or less likely a mucosal lesion could appear similarly. Correlation with colonoscopy recommended. 4. No bowel obstruction. 5. Additional findings as above. ACT 112: Negative or not required by law. The above report was generated using voice recognition software. It may contain grammatical, syntax o r spelling errors. Electronically signed by: Devaughn López M.D. 01/17/2022 2:20 PM
--- NOTE | 2022-01-17 14:37 | Electrocardiogram Report ---
Test Reason : Blood Pressure : / mmHG Vent. Rate : 072 BPM Atrial Rate : 072 BPM P-R Int : 168 ms QRS Dur : 076 ms QT Int : 398 ms P-R-T Axes : 048 -27 028 degrees QTc Int : 435 ms Poor data quality, interpretation may be adversely affected Normal sinus rhythm with occasional Premature atrial complexes Normal ECG When compared with ECG of 04-MAY-2020 06:46, Sinus rhythm has replaced Atrial flutter Vent. rate has decreased BY 63 BPM Nonspecific T wave abnormality no longer present Confirmed by Cj Paredes ([id number]) on 01/17/2022 2:37:10 PM Referred By: Confirmed By:Cj Paredes
--- NOTE | 2022-01-17 14:38 | Surgery Consultation ---
Date of Consultation January 17, 2022 Assessment & Plan (1) Abscess or cellulitis of chest wall: INR 3.2, will need correction prior to I&D will plan for OR tomorrow Supervising Physician Co-Signing Physician Notes Patient seen and examined, labs and imaging reviewed, agree with above except as differs below. 81-year-old female with a history of MS on amino modulator therapy presents with left chest wall cellulitis. Started his what was thought to be an infected hair 2 days ago and is rapidly progressed. She presented with fever to 38 Celsius, other vital signs stable. On Coumadin for history of DVT. On exam she is not oriented to place or person. Somewhat combative. On her left chest wall there is extensive erythema with some crepitus with a pinhole opening medially. This extends along the inferior portion of the breast and lower chest wall laterally to the axilla. There is some crepitus on exam and she has dirty dishwater appearing fluid expressible. WBC 20. CT scan was performed and showed subcu emphysema with no drainable fluid collection and concern for NSTI. Left chest wall cellulitis with concern for abscess versus necrotizing soft tissue infection. I had a lengthy discussion with her son Victoriano that she is unable to make informed decision at this time. She is currently DNR/DNI, they are willing to have her undergo a surgical procedure with the understanding that she may requ faiza short-term postoperative ventilation and possible pressor support. They do not want CPR per her wishes. If prolonged intubation becomes an issue, they would elect to move to comfort measures. They understand that if this is a necrotizing soft tissue infection she will have a prolonged hospital stay, likely prolonged ICU stay, and prolonged wound healing along with possibility for multiple debridements. Victoriano Mckenzie gave his verbal consent. Plan for incision and drainage, debridement chest wall infection Risk discussed to include but not limited to bleeding, infection, prolonged wound healing, ICU stay, need for future surgery Kcentra to be given preoperatively ICU postop Broad-spectrum antibiotic therapy This case was discussed with the hospitalist team [facility]. History of Present Illness History of Present Illness 81 y/o female resident of [facility] was noted to have fevers and drainage from left chest today and brought to ED. She is somnolent, does not offer any history. On coumadin for h/o DVT and also h/o of MS related paraplegia. Allergies Allergy/AdvReac Type Severity Reaction Status Date / Time levofloxacin [From Levaquin] Allergy Unknown Unknown Unverified 01/17/22 13:00 Home Medications Medication Instructions Recorded Confirmed Type cholecalciferol (vitamin D3) 50 2,000 unit PO QAM 06/14/18 01/17/22 History mcg (2,000 unit) tablet (Vitamin D3) cyanocobalamin (vitamin B-12) 1,000 mcg PO QAM 06/14/18 01/17/22 History 1,000 mcg tablet (Vitamin B-12) glatiramer 20 mg/mL subcutaneous 20 mg SUBCUT QAM 06/14/18 01/17/22 History syringe (Copaxone) citalopram 10 mg tablet 10 mg PO DAILY 12/01/19 01/17/22 History gabapentin 600 mg tablet 1,200 mg PO BID 12/01/19 01/17/22 History multivitamin with minerals 1 tab PO DAILY 12/01/19 01/17/22 History potassium chloride 10 mEq 20 meq PO DAILY 12/01/19 01/17/22 History tablet,extended release(part/cryst) (Klor-Con M) acetaminophen 325 mg tablet 650 mg PO Q6 PRN 05/04/20 01/17/22 History loperamide 2 mg capsule 2 mg PO Q6H PRN 05/04/20 01/17/22 History Saccharomyces boulardii 250 mg 10,000 mmu cells PO BID 01/17/22 01/17/22 History capsule (Florastor) ascorbic acid (vitamin C) 1,000 mg 1 g PO BID 01/17/22 01/17/22 History tablet (Vitamin C) cephalexin 500 mg capsule 500 mg PO TID 01/17/22 01/17/22 History dextran 70-hypromellose eye drops 2 drp OPHTHALMIC (EYE) Q8 PRN 01/17/22 01/17/22 History in a dropperette (Artificial Tears (PF)) diltiazem HCl 120 mg 120 mg PO DAILY 01/17/22 01/17/22 History capsule,extended release 24 hr, controlled (DILT-XR) food supplemt, lactose-reduced 1 ea PO .EVERY AFTERNOON 01/17/22 01/17/22 History (Protein Nutritional Shake) lip protective (padimate o) 1 ea TOPICAL QPM 01/17/22 01/17/22 History methenamine hippurate 1 gram tablet 1 g PO BID 01/17/22 01/17/22 History pantoprazole 40 mg tablet,delayed 40 mg PO BID 01/17/22 01/17/22 History release sulfamethoxazole 800 1 tab PO Q12 01/17/22 01/17/22 History mg-trimethoprim 160 mg tablet tramadol 50 mg tablet 100 mg PO TID 01/17/22 01/17/22 History warfarin 5 mg tablet 5 mg PO HS 01/17/22 01/17/22 History Patient History Medical History (Updated 01/17/22 @ 17:17 by Leandro Durham DO) Abnormal urinalysis Altered mental status Atrial flutter with rapid ventricular response Constipation Fever History of multiple sclerosis Left-sided weakness Lymphedema of left leg Multiple sclerosis Paraplegia SVT (supraventricular tachycardia) Trigeminal neuralgia of left side of face Urinary retention Family History Other Family history non-contributory Social History Smoking Status: Unknown if ever smoked Years Smoked: 52; Second Hand Exposure: No; Do You Dip or Chew Tobacco: No; Hx Alcohol Use: No Hx Substance Use: No Preferred Language: Turkish Communication Ability: Effective 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 Beliefs That Will Affect Care: None Current Living Situation: Intermediate Current Living Situation Comment: Home Health Other Information That Helps Us Care for You: No Feels Safe at Home: Declines to Answer Assistive Devices: Oxygen - Continuous Review of Systems Review of Systems: Unobtainable due to cognitive status Physical Exam Constitutional: WD/WN, vitals as above + obese Respiratory: normal respiratory effort, lungs clear to auscultation Cardiovascular: Rate/Rhythm: regular rate Chest (Breasts): Additional Comments: erythema, induration of lower left breast and chest with pinpoint opening at left sternal margin draining pus Results & Data ([facility]) Vital Signs (Past 12 Hours) Vital Signs Temp Pulse Resp BP Pulse Ox 01/17/22 11:53 81 20 99 01/17/22 11:33 38.2 C H 81 20 119/57 L 99 PG Care Time/CCT Total # of Minutes Spent Total Time Spent with Patient: Total time spent is greater than 50% in coordination of care (as documented) at patient's floor/unit and/or counseling patient: Coding Level of Care Code 98196 Initial Inpt Care Lvl 1 Diagnoses Abscess or cellulitis of chest wall
[2022-01-17 15:27] LABS: Fibrinogen 640 mg/dl (184-400)
[2022-01-17] MEDS ORDERED: CLINDAMYCIN/D5W 900 MG/50 ML BAG IV STA (15:28)
[2022-01-17] MEDS ORDERED: PHYTONADIONE 10 MG in DEXTROSE 5% 50 ML IV ONE ×2 (15:30→16:36)
[2022-01-17] MEDS ORDERED: LINEZOLID 600 MG/300 ML BAG IV STA (15:31)
[2022-01-17 15:47] LABS: C Reactive Protein 19.02 mg/dl (0-0.5)
--- NOTE | 2022-01-17 16:01 | History & Physical Report ---
Date of Service January 17, 2022 Assessment & Plan (1) Abscess or cellulitis of chest wall: Plan: Cellulitis of epigastrium with extension to the left breast and chest wall - rapid progression with reported infected hair 2 days ago - Concern for NEC FASC- Surgical evaluation appreciated and completed - Clindamycin, Linezolid, Zosyn for coverage - Blood culture, urine culture, wound culture are pending - Will reverse her INR with Vitamin K 10mg IV now- - If emergent plan to OR tonight consider 4 factor PCC - NPO after midnight - no further evidence of organ dysfunction - CRP elevated, CK 14, Fibrinogen 640 - LRINEC score 5 Patient's son updated over phone. Patient is DNR/DNI but would want supportive care in the form of Vasopressors or lines associated with hemodynamic monitoring or infusion if this would help stabilize her. (2) Necrotizing fasciitis: (3) Sepsis: Plan: Sepsis from chest wall soft tissue infection and urine source with possible GI - WBC 20, T>38, source, CRP 19 - PCT 0.4, lactate 1.6 - Source control debridement per surgical services - ABX therapy as above - pending cultures - Maintain MAPS >65 - UO <30 (4) Catheter-associated urinary tract infection: Plan: Catheter change out - in past grew E. Coli ESBL sensavite to Zosyn- as above transition to Zosyn - ABX as above (5) Esophagitis: Plan: Chronic continue PPI - NPO (6) Paraplegia: Plan: Chronic condition from her MS as per HPI resident of [facility] for this reason (7) HLD (hyperlipidemia): Plan: Continue statin when able (8) HTN (hypertension): Plan: Hold Diltiazem at this time until hemodynamics proven stable (9) Multiple sclerosis: Plan: Hold Copaxone - not on formulary History of Present Illness Primary Care Provider: [facility] 81 YOF with medical history of: MS ([facility] resident), UTI chronic, DVT (2/ on Warfarin), SVT, Esophagitis, HLD, Depression. Patient was transferred from [facility] today for complaints of chest wall abscess with extension to left breast. This apparently started two days ago, she was placed on Keflex and Bactrim at that time. Her son reports that it possibly started as an infected hair. In the EMD the patient had routine labs performed to include blood and urine culture, wound culture. CBC, INR, BMP. Lactate was negative. The wound is located at epigastrium that was expressed at bedside by [facility] Physician. She had a CT scan of the chest completed to evaluate the extension of this fluctuance and cellulitis. CT of chest was noted with subcutaneous emphysema without fluid collection. CT scan of abdomen and pelvis was done as well which revealed luminal narrowing and thickening of the distal sigmoid and partial stricture. General Surgery was consulted for surgical evaluation for source control and impression of Nec Fasc. Patient was originally placed on Meropenem and Vancomycin in [facility]. She was given 2Liters of Crystalloid infusion. Her WBC count is 20.3, INR 3.2 and UA is 3+ bacteria. Patient will be admitted to PCU, will place patient on Linezolid, Clindamycin, and Zosyn. Continue with Crystalloids. She is DNR/DNI. If she would decompensate from sepsis, would transfer to ICU for vasopressor support if needed. IV ABX as above, Vitamin K 10mg IV now, INR in AM. NPO after midnight. COVID test on admission is: NEGATIVE Allergies Allergy/AdvReac Type Severity Reaction Status Date / Time levofloxacin [From Levaquin] Allergy Unknown Unknown Unverified 01/17/22 13:00 Home Medications Medication Instructions Recorded Confirmed Type cholecalciferol (vitamin D3) 50 2,000 unit PO QAM 06/14/18 01/17/22 History mcg (2,000 unit) tablet (Vitamin D3) cyanocobalamin (vitamin B-12) 1,000 mcg PO QAM 06/14/18 01/17/22 History 1,000 mcg tablet (Vitamin B-12) glatiramer 20 mg/mL subcutaneous 20 mg SUBCUT QAM 06/14/18 01/17/22 History syringe (Copaxone) citalopram 10 mg tablet 10 mg PO DAILY 12/01/19 01/17/22 History gabapentin 600 mg tablet 1,200 mg PO BID 12/01/19 01/17/22 History multivitamin with minerals 1 tab PO DAILY 12/01/19 01/17/22 History potassium chloride 10 mEq 20 meq PO DAILY 12/01/19 01/17/22 History tablet,extended release(part/cryst) (Klor-Con M) acetaminophen 325 mg tablet 650 mg PO Q6 PRN 05/04/20 01/17/22 History loperamide 2 mg capsule 2 mg PO Q6H PRN 05/04/20 01/17/22 History Saccharomyces boulardii 250 mg 10,000 mmu cells PO BID 01/17/22 01/17/22 History capsule (Florastor) ascorbic acid (vitamin C) 1,000 mg 1 g PO BID 01/17/22 01/17/22 History tablet (Vitamin C) cephalexin 500 mg capsule 500 mg PO TID 01/17/22 01/17/22 History dextran 70-hypromellose eye drops 2 drp OPHTHALMIC (EYE) Q8 PRN 01/17/22 01/17/22 History in a dropperette (Artificial Tears (PF)) diltiazem HCl 120 mg 120 mg PO DAILY 01/17/22 01/17/22 History capsule,extended release 24 hr, controlled (DILT-XR) food supplemt, lactose-reduced 1 ea PO .EVERY AFTERNOON 01/17/22 01/17/22 History (Protein Nutritional Shake) lip protective (padimate o) 1 ea TOPICAL QPM 01/17/22 01/17/22 History methenamine hippurate 1 gram tablet 1 g PO BID 01/17/22 01/17/22 History pantoprazole 40 mg tablet,delayed 40 mg PO BID 01/17/22 01/17/22 History release sulfamethoxazole 800 1 tab PO Q12 01/17/22 01/17/22 History mg-trimethoprim 160 mg tablet tramadol 50 mg tablet 100 mg PO TID 01/17/22 01/17/22 History warfarin 5 mg tablet 5 mg PO HS 01/17/22 01/17/22 History Past Med/Surg History Medical History (Updated 01/18/22 @ 07:08 by Roni Jolley MD) Abnormal urinalysis Altered mental status Atrial flutter with rapid ventricular response Constipation Fever History of multiple sclerosis Left-sided weakness Lymphedema of left leg Multiple sclerosis Paraplegia SVT (supraventricular tachycardia) Trigeminal neuralgia of left side of face Urinary retention Family History Other Family history non-contributory Social History Smoking Status: Unknown if ever smoked Years Smoked: 52; Second Hand Exposure: No; Do You Dip or Chew Tobacco: No; Hx Alcohol Use: No Hx Substance Use: No Preferred Language: Serbian Communication Ability: Effective Academic Advisor Required: No Beliefs That Will Affect Care: None Current Living Situation: Senior Living Current Living Situation Comment: Home Health Other Information That Helps Us Care for You: No Feels Safe at Home: Declines to Answer Assistive Devices: Oxygen - Continuous Review of Systems Review of Systems: REVIEW OF SYSTEMS: Patient is baseline somnolent but arousable and able to communicate most times Currently she is able to say her chest and breast hurt, and "why wouldn't they" Physical Exam Physical Exam: PHYSICAL EXAM: General: awakens to stimulus, oriented to person only Head: Normocephalic, atraumatic ENT: PERRLA, EOMI, no pharyngeal exudate, mucous membranes dry Neuro: AAO x 1, speech clear but in-appropriate, strength intact bilaterally 5/5, sensation intact and equal all extremities and dermatomes, no pronator drift Chest: equal rise and fall of the chest, no accessory muscle use, decreased in the bases Cardiac: Regular rate and rhythm, telemetry reviewed- NSR, skin warm dry, cap refill <3 seconds, peripheral pulses +2 no JVD, no murmur, no edema GI: NABS x 4 quadrants, soft, nontender to palpation, no rebound, guarding or tenderness : Gamboa exchanged, draining amanda color urine Extremities: Normal inspection, no peripheral edema or erythema, calfs nontender to palpation\\ Skin: epigastric site with punctate area that is open and draining brown, foul smelling drainage- continues to express with pressure to site. Errythema extends on all sides- to the right stop at clavicle, left extends under and around to the left breast and chest wall. Some subq air is felt tracking to the left. Results & Data Results & Data ([facility]) Vital Signs (Past 12 Hours) Vital Signs Temp Pulse Pulse Resp BP BP Pulse Ox 01/17/22 14:40 63 18 98/52 L 99 01/17/22 14:30 101/37 L 99 01/17/22 14:20 100 01/17/22 14:10 99 01/17/22 14:00 115/44 L 98 01/17/22 13:50 98 01/17/22 13:43 98 01/17/22 13:20 68 22 99 01/17/22 13:10 73 20 99 01/17/22 13:00 75 17 107/48 L 99 01/17/22 11:53 81 20 99 01/17/22 11:33 38.2 C H 81 20 119/57 L 99 Laboratory Results Abnormal lab results 01/17/22 01/17/22 01/17/22 Range/Units 11:55 11:55 12:52 WBC 20.30 H (4.8-10.8) K/uL RBC 3.91 L (4.2-5.4) M/uL Hgb 11.1 L (12.0-16.0) g/dL Hct 35.3 L (37-47) % MCHC 31.4 L (32-36) g/dL RDW Std Deviation 50.7 H (36.4-46.3) fL RDW Coeff of Aparna 15.3 H (11.5-14.5) % Plt Count 414 H (130-400) K/uL Neut # (Auto) 17.74 H (1.4-6.5) K/uL [place] # (Auto) 1.12 H (0.11-0.59) K/uL Immature Gran # (Auto) 0.06 H (0.00-0.02) K/uL PT 31.6 H (9.0-12.0) Seconds INR 3.2 H (0.9-1.1) APTT 50.7 H* (21.0-31.0) Seconds Fibrinogen (184-400) mg/dl BUN/Creatinine Ratio 23.9 H (10-20) Glucose 126 H (70-99(Fasting)) mg/dl Albumin 3.1 L (3.4-5.0) gm/dl Albumin/Globulin Ratio 0.8 L (0.9-2) Urine Protein (Negative) Urine Blood (Negative) Urine Nitrite (Negative) Ur Leukocyte Esterase (Negative) Urine RBC (0-4) /hpf Urine WBC (0-5) /hpf Ur Epithelial Cells (0-5) /lpf Urine Bacteria (Negative) 01/17/22 01/17/22 Range/Units 12:58 14:56 WBC (4.8-10.8) K/uL RBC (4.2-5.4) M/uL Hgb (12.0-16.0) g/dL Hct (37-47) % MCHC (32-36) g/dL RDW Std Deviation (36.4-46.3) fL RDW Coeff of Aparna (11.5-14.5) % Plt Count (130-400) K/uL Neut # (Auto) (1.4-6.5) K/uL [place] # (Auto) (0.11-0.59) K/uL Immature Gran # (Auto) (0.00-0.02) K/uL PT (9.0-12.0) Seconds INR (0.9-1.1) APTT (21.0-31.0) Seconds Fibrinogen 640 H (184-400) mg/dl BUN/Creatinine Ratio (10-20) Glucose (70-99(Fasting)) mg/dl Albumin (3.4-5.0) gm/dl Albumin/Globulin Ratio (0.9-2) Urine Protein 1+ H (Negative) Urine Blood Trace-intact H (Negative) Urine Nitrite Positive A (Negative) Ur Leukocyte Esterase 1+ H (Negative) Urine RBC 5-10 H (0-4) /hpf Urine WBC >30 H (0-5) /hpf Ur Epithelial Cells 5-10 H (0-5) /lpf Urine Bacteria 3+ H (Negative) Diagnostic Findings Chest X-Ray 01/17/22 11:53 XR chest 1V portable CLINICAL HISTORY: SEPSIS TECHNIQUE: Single frontal radiograph of the chest was obtained. Comparison: Comparison is made to chest radiograph 05/04/2020 FINDINGS: Exam is limited by patient rotation. The cardiomediastinal silhouette is normal. Airspace opacity is seen in the right lower lung, new from prior exam. Prominence of the pulmonary vasculature is seen. No evidence of pleural effusion or pneumothorax. IMPRESSION: 1. Right lower lung airspace opacity which may represent atelectasis, pneumonia, and/or aspiration. 2. Mild pulmonary edema is seen. ACT 112: Negative or not required by law. Electronically signed by: Ted Armstrong M.D. 01/17/2022 12:[address] 01/17/22 12:18 CT CHEST WITH IV CONTRAST; ABDOMEN AND PELVIS CT WITH IV CONTRAST HISTORY: Acute left chest wall soft tissue infection sepsis, chest wall abscess/cellulitis TECHNIQUE: Multiaxial CT images of the chest, abdomen and pelvis were performed following the IV administration of 95 cc of Optiray, A dose lowering technique was utilized adhering to the principles of ALARA. COMPARISON STUDY: Chest radiograph of same day, CT abdomen and pelvis 12/10/2018 FINDINGS: CT CHEST: There are a few subcentimeter hypodensities of the left thyroid lobe measuring up to 4 mm. There is no lymphadenopathy. Left axillary chain lymph nodes measure up to 9 mm are likely reactive. Moderate cardiomegaly with extensive coronary artery calcifications. Atherosclerosis of the thoracic aorta without aneurysm or dissection. The opacified pulmonary artery appears unremarkable. Left hemidiaphragmatic elevation. There is suggestion of mild pulmonary emphysema. No pneumothorax, large pleural effusion or overt pulmonary edema. Linear subsegmental left greater than right bibasilar opacities suggest atelectasis versus scarring. There is a subsegmental cluster of solid nodules in the anterior left upper lobe measuring up to 3 mm which are likely infectious or inflammatory. There is minimal left basilar mucous plugging. There is moderate subcutaneous edema with skin thickening and subcutaneous emphysema of the left chest wall/left breast. The left breast is partially outside the [id number]. There is no drainable fluid collection. Degenerative changes of the shoulders and spine. There is no acute fracture or destructive bone lesion identified. Mild wedge deformities of the upper thoracic spine are age-indeterminate however are favored to be chronic. Chronic moderate L1 compression deformity, stable from 2019. Mild inflammatory changes involve the anterior costochondral junctions of the left fourth through sixth ribs. CT ABDOMEN/PELVIS: No pneumatosis or pneumoperitoneum. Limited exam secondary to positioning and respiratory motion artifact. Unremarkable spleen, moderately atrophic pancreas and adrenal glands. Distended gallbladder without CT evidence of acute cholecystitis. Unremarkable liver. There is patency of the hepatic and portal veins. Cortical thinning of the bilateral kidneys. Exophytic 2.3 cm cyst of the superior pole left kidney. Additional subcentimeter hypodensities of the kidneys are too small to characterize. Decompressed urinary bladder with Gamboa catheter in place. Hysterectomy. Atherosclerosis of the aorta and branch vessels without aneurysm. There is no lymphadenopathy identified. Tiny hiatal hernia. There is no small bowel obstruction. Hyperdense stool is noted within the rectum. There is wall thickening of the distal sigmoid and rectum with mild perirectal inflammatory stranding and luminal narrowing. There is upstream gaseous distention of the sigmoid measuring up to 6.3 cm. Colonic diverticulosis. Moderate fecal retention. Noninflamed appendix. Degenerative changes of the spine, pelvis and hips severe right and moderate left degeneration of the hips. Lumbar levoscoliosis. Chronic L1 compression deformity. IMPRESSION: 1. Extensive cellulitis of the left chest wall and breast with subcutaneous emphysema which may represent associated fasciitis. No fluid collection to suggest abscess. 2. Associated inflammatory changes are noted surrounding the anterior costochondral junctions of the left fourth through sixth ribs. No cortical destruction to suggest osteomyelitis at this time. 3. Luminal narrowing with circumferential wall thickening of the distal sigmoid and rectum is noted with mild perirectal inflammatory stranding. Additionally, there is mild upstream gaseous distention of the proximal to mid sigmoid colon. Findings may secondary to partial distention, however a stricture or less likely a mucosal lesion could appear similarly. Correlation with colonoscopy recommended. 4. No bowel obstruction. 5. Additional findings as above. ACT 112: Negative or not required by law. The above report was generated using voice recognition software. It may contain grammatical, syntax or spelling errors. Electronically signed by: Devaughn López M.D. 01/17/2022 2:20 PM Abdomen/Pelvis CT 01/17/22 12:32 CT CHEST WITH IV CONTRAST; ABDOMEN AND PELVIS CT WITH IV CONTRAST HISTORY: Acute left chest wall soft tissue infection sepsis, chest wall abscess/cellulitis TECHNIQUE: Multiaxial CT images of the chest, abdomen and pelvis were performed following the IV administration of 95 cc of Optiray, A dose lowering technique was utilized adhering to the principles of ALARA. COMPARISON STUDY: Chest radiograph of same day, CT abdomen and pelvis 12/10/2018 FINDINGS: CT CHEST: There are a few subcentimeter hypodensities of the left thyroid lobe measuring up to 4 mm. There is no lymphadenopathy. Left axillary chain lymph nodes measure up to 9 mm are likely reactive. Moderate cardiomegaly with extensive coronary artery calcifications. Atherosclerosis of the thoracic aorta without aneurysm or dissection. The opacified pulmonary artery appears unremarkable. Left hemidiaphragmatic elevation. There is suggestion of mild pulmonary emphysema. No pneumothorax, large pleural effusion or overt pulmonary edema. Linear subsegmental left greater than right bibasilar opacities suggest atelectasis versus scarring. There is a subsegmental cluster of solid nodules in the anterior left upper lobe measuring up to 3 mm which are likely infectious or inflammatory. There is minimal left basilar mucous plugging. There is moderate subcutaneous edema with skin thickening and subcutaneous emphysema of the left chest wall/left breast. The left breast is partially outside the [id number]. There is no drainable fluid collection. Degenerative changes of the shoulders and spine. There is no acute fracture or destructive bone lesion identified. Mild wedge deformities of the upper thoracic spine are age-indeterminate however are favored to be chronic. Chronic moderate L1 compression deformity, stable from 2019. Mild inflammatory changes involve the anterior costochondral junctions of the left fourth through sixth ribs. CT ABDOMEN/PELVIS: No pneumatosis or pneumoperitoneum. Limited exam secondary to positioning and respiratory motion artifact. Unremarkable spleen, moderately atrophic pancreas and adrenal glands. Distended gallbladder without CT evidence of acute cholecystitis. Unremarkable liver. There is patency of the hepatic and portal veins. Cortical thinning of the bilateral kidneys. Exophytic 2.3 cm cyst of the superior pole left kidney. Additional subcentimeter hypodensities of the kidneys are too small to characterize. Decompressed urinary bladder with Gamboa catheter in place. Hysterectomy. Atherosclerosis of the aorta and branch vessels without aneurysm. There is no lymphadenopathy identified. Tiny hiatal hernia. There is no small bowel obstruction. Hyperdense stool is noted within the rectum. There is wall thickening of the distal sigmoid and rectum with mild perirectal inflammatory stranding and luminal narrowing. There is upstream gaseous distention of the sigmoid measuring up to 6.3 cm. Colonic diverticulosis. Moderate fecal retention. Noninflamed appendix. Degenerative changes of the spine, pelvis and hips severe right and moderate left degeneration of the hips. Lumbar levoscoliosis. Chronic L1 compression d eformity. IMPRESSION: 1. Extensive cellulitis of the left chest wall and breast with subcutaneous emphysema which may represent associated fasciitis. No fluid collection to suggest abscess. 2. Associated inflammatory changes are noted surrounding the anterior costochondral junctions of the left fourth through sixth ribs. No cortical destruction to suggest osteomyelitis at this time. 3. Luminal narrowing with circumferential wall thickening of the distal sigmoid and rectum is noted with mild perirectal inflammatory stranding. Additionally, there is mild upstream gaseous distention of the proximal to mid sigmoid colon. Findings may secondary to partial distention, however a stricture or less likely a mucosal lesion could appear similarly. Correlation with colonoscopy recommended. 4. No bowel obstruction. 5. Additional findings as above. ACT 112: Negative or not required by law. The above report was generated using voice recognition software. It may contain grammatical, syntax or spelling errors. Electronically signed by: Devaughn López M.D. 01/17/2022 2:20 PM Medications Administered Home Medications cholecalciferol (vitamin D3) 50 mcg (2,000 unit) tablet (Vitamin D3) 2,000 unit PO QAM 06/14/18 [History Confirmed 01/17/22] cyanocobalamin (vitamin B-12) 1,000 mcg tablet (Vitamin B-12) 1,000 mcg PO QAM 06/14/18 [History Confirmed 01/17/22] glatiramer 20 mg/mL subcutaneous syringe (Copaxone) 20 mg SUBCUT QAM 06/14/18 [History Confirmed 01/17/22] citalopram 10 mg tablet 10 mg PO DAILY 12/01/19 [History Confirmed 01/17/22] gabapentin 600 mg tablet 1,200 mg PO BID 12/01/19 [History Confirmed 01/17/22] multivitamin with minerals 1 tab PO DAILY 12/01/19 [History Confirmed 01/17/22] potassium chloride 10 mEq tablet,extended release(part/cryst) (Klor-Con M) 20 meq PO DAILY 12/01/19 [History Confirmed 01/17/22] acetaminophen 325 mg tablet 650 mg PO Q6 PRN 05/04/20 [History Confirmed 01/17/22] loperamide 2 mg capsule 2 mg PO Q6H PRN 05/04/20 [History Confirmed 01/17/22] Saccharomyces boulardii 250 mg capsule (Florastor) 10,000 mmu cells PO BID 01/17/22 [History Confirmed 01/17/22] ascorbic acid (vitamin C) 1,000 mg tablet (Vitamin C) 1 g PO BID 01/17/22 [History Confirmed 01/17/22] cephalexin 500 mg capsule 500 mg PO TID 01/17/22 [History Confirmed 01/17/22] dextran 70-hypromellose eye drops in a dropperette (Artificial Tears (PF)) 2 drp OPHTHALMIC (EYE) Q8 PRN 01/17/22 [History Confirmed 01/17/22] diltiazem HCl 120 mg capsule,extended release 24 hr, controlled (DILT-XR) 120 mg PO DAILY 01/17/22 [History Confirmed 01/17/22] food supplemt, lactose-reduced (Protein Nutritional Shake) 1 ea PO .EVERY AFTERNOON 01/17/22 [History Confirmed 01/17/22] lip protective (padimate o) 1 ea TOPICAL QPM 01/17/22 [History Confirmed 01/17/22] methenamine hippurate 1 gram tablet 1 g PO BID 01/17/22 [History Confirmed 01/17/22] pantoprazole 40 mg tablet,delayed release 40 mg PO BID 01/17/22 [History Confirmed 01/17/22] sulfamethoxazole 800 mg-trimethoprim 160 mg tablet 1 tab PO Q12 01/17/22 [History Confirmed 01/17/22] tramadol 50 mg tablet 100 mg PO TID 01/17/22 [History Confirmed 01/17/22] warfarin 5 mg tablet 5 mg PO HS 01/17/22 [History Confirmed 01/17/22] Active Medications Phytonadione 10 mg/ Dextrose 51 mls @ 102 mls/hr IV ONE ONE Stop: 01/17/22 15:59 Linezolid (Zyvox) 600 mg in 300 mls @ 300 mls/hr IV ONE STA Stop: 01/17/22 16:30 Clindamycin Phosphate (Cleocin/D5w) 900 mg in 50 mls @ 100 mls/hr IV NOW STA Stop: 01/17/22 15:57 Miscellaneous Information (Vancomycin Consult Active) 1 ea N/A UD PRN PRN Reason: Consult Stop: 02/16/22 12:14 Discontinued Medications Acetaminophen (Ofirmev) 1,000 mg in 100 mls @ 400 mls/hr IV NOW STA Stop: 01/17/22 12:25 Last Infusion: 01/17/22 13:08 Dose: 0 mls/hr Documented by: [id number] Admin: 01/17/22 12:53 Dose: 400 mls/hr Documented by: [id number] Meropenem 1,000 mg/ Syringe 20 mls @ 2 mls/min IV NOW STA; Protocol Stop: 01/17/22 12:20 Last Admin: 01/17/22 13:11 Dose: 2 mls/min Documented by: [id number] Vancomycin HCl 2,500 mg/ (Sodium Chloride) 550 mls @ 200 mls/hr IV NOW ONE Stop: 01/17/22 14:59 Last Admin: 01/17/22 13:12 Dose: 200 mls/hr Documented by: [id number] Sodium Chloride (Nss 1000ml) 2,000 mls @ 999 mls/hr IV .Q2H1M ONE Stop: 01/17/22 14:15 Last Infusion: 01/17/22 15:31 Dose: 0 mls/hr Documented by: [id number] Admin: 01/17/22 12:51 Dose: 999 mls/hr Documented by: [id number] Ioversol (Optiray 320 100ml) 95 ml IV ONCE ONE Stop: 01/17/22 13:46 Last Admin: 01/17/22 13:36 Dose: 95 ml Documented by: [id number] ECG Additional Comments: Vent. Rate : 072 BPM Atrial Rate : 072 BPM P-R Int : 168 ms QRS Dur : 076 ms QT Int : 398 ms P-R-T Axes : 048 -27 028 degrees QTc Int : 435 ms Poor data quality, interpretation may be adversely affected Normal sinus rhythm with occasional Premature atrial complexes Normal ECG When compared with ECG of 04-MAY-2020 06:46, Sinus rhythm has replaced Atrial flutter Vent. rate has decreased BY 63 BPM Nonspecific T wave abnormality no longer present Code Status & VTE Plan Code Status CODE: DNR/DNI VTE: SCDS, chemoprophylaxis following surgical debridement VTE Prophylaxis Plan VTE Prophylaxis will be ordered: Yes Supervising Physician Co-Signing Physician Notes I personally saw and examined the patient. 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 Febrile in the ER. Discussed with [facility] and patient is bed bound with samantha lift for transfers at baseline, drowsy most of the day normally, follows commands but orientated to self only. Son (Victoriano) is her decision and care was discussed with him by QING. O/E Patient is somnolent but wakes easily when breast is touched. Asks what I am doing but is otherwise non verbal, complete left breast is erythematous radiating to left axilla with pus from anterior chest wall, subcutaneous surgical emphysema felt up to superior breast tissue A/P This is clinically necrotizing fasciitis with subcutaneous surgical emphysema significantly separate from abscess. Discussed with surgical team Lauren Villaseñor as I feel this patient needed surgical debridement tonight rather than waiting for INR to decrease. 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 Antibiotics with Linezolid and clindamycin to help with toxin effect and Zosyn for more typical coverage. 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 PG Care Time/CCT Total # of Minutes Spent Total Time Spent with Patient: Total time spent is greater than 50% in coordination of care (as documented) at patient's floor/unit and/or counseling patient: Coding Level of Care Code 00609 Initial Inpt Care Lvl 3 Diagnoses Sepsis A41.9 Sepsis acute organ dysfunction status: unspecified Sepsis type: sepsis due to unspecified organism Abscess or cellulitis of chest wall Catheter-associated urinary tract infection T83.511A; N39.0 Esophagitis K20.9 Paraplegia G82.20 HLD (hyperlipidemia) E78.5 Hyperlipidemia type: unspecified HTN (hypertension) I10 Hypertension type: essential hypertension Multiple sclerosis G35 Necrotizing fasciitis M72.6 (1) HLD (hyperlipidemia) Hyperlipidemia type: unspecified Qualified Code(s): E78.5 - Hyperlipidemia, unspecified (2) Sepsis Sepsis acute organ dysfunction status: unspecified Sepsis type: sepsis due to unspecified organism Qualified Code(s): A41.9 - Sepsis, unspecified organism (3) HTN (hypertension) Hypertension type: essential hypertension Qualified Code(s): I10 - Essential (primary) hypertension
[2022-01-17] MEDS ORDERED: GLUCAGON FOR INJ 1 MG VIAL SQ PRN (16:36)
[2022-01-17] MEDS ORDERED: ACETAMINOPHEN 325 MG TAB PO PRN ×2 (16:36)
[2022-01-17] MEDS ORDERED: GLUCOSE 40% GEL 15 GM TUBE PO PRN (16:36)
[2022-01-17] MEDS ORDERED: CARBOHYDRATES FOR HYPOGLYCEMIA PO PRN (16:36)
[2022-01-17] MEDS ORDERED: GLUCOSE 10 TAB/TUBE PO PRN (16:36)
[2022-01-17] MEDS ORDERED: PIPERACILLIN/TAZOBACTAM 3.375 GM in DEXTROSE 5% 100 ML IV ONE (17:00)
[2022-01-17] MEDS: LACTATED RINGER'S 1,000 ML IV SCH (17:11)
[2022-01-17] MEDS ORDERED: PROTHROMBIN COMP CONC- KCENTRA 2,500 UNITS in SYRINGE 0 ML IV SCH (17:15)
--- NOTE | 2022-01-17 17:17 | Anesthesiology Consultation ---
Date of Service January 17, 2022 Assessment & Plan (1) Encounter for pre-operative examination: Chart Review Chart Review: Acceptable Risk for Surgery and Patient NOT seen in Pre Admission Testing Consults Requested none History Surgery Operation Date: 01/17/22 14:25 Proposed Procedures p Left Breast Incision and Drainage - Hair Mcknight DO, FACS Operation Date: 01/18/22 08:00 Proposed Procedures p Left Breast Incision and Drainage - Hair Mcknight DO, FACS Height/Weight Height: 5 ft 3 in Weight: 103.5 kg Allergies Allergy/AdvReac Type Severity Reaction Status Date / Time levofloxacin [From Levaquin] Allergy Unknown Unknown Unverified 01/17/22 13:00 Medications Home Medications Medication Instructions Recorded Confirmed Last Taken cholecalciferol (vitamin D3) 50 2,000 unit PO QAM 06/14/18 01/17/22 01/17/22 mcg (2,000 unit) tablet (Vitamin D3) cyanocobalamin (vitamin B-12) 1,000 mcg PO QAM 06/14/18 01/17/22 01/17/22 1,000 mcg tablet (Vitamin B-12) glatiramer 20 mg/mL subcutaneous 20 mg SUBCUT QAM 06/14/18 01/17/22 01/17/22 syringe (Copaxone) citalopram 10 mg tablet 10 mg PO DAILY 12/01/19 01/17/22 01/17/22 gabapentin 600 mg tablet 1,200 mg PO BID 12/01/19 01/17/22 01/17/22 08:30 multivitamin with minerals 1 tab PO DAILY 12/01/19 01/17/22 01/17/22 potassium chloride 10 mEq 20 meq PO DAILY 12/01/19 01/17/22 01/17/22 tablet,extended release(part/cryst) (Klor-Con M) acetaminophen 325 mg tablet 650 mg PO Q6 PRN 05/04/20 01/17/22 01/17/22 00:05 loperamide 2 mg capsule 2 mg PO Q6H PRN 05/04/20 01/17/22 01/02/22 Saccharomyces boulardii 250 mg 10,000 mmu cells PO BID 01/17/22 01/17/22 01/16/22 08:30 capsule (Florastor) ascorbic acid (vitamin C) 1,000 mg 1 g PO BID 01/17/22 01/17/22 01/17/22 08:30 tablet (Vitamin C) cephalexin 500 mg capsule 500 mg PO TID 01/17/22 01/17/22 01/17/22 08:30 dextran 70-hypromellose eye drops 2 drp OPHTHALMIC (EYE) Q8 PRN 01/17/22 01/17/22 Unknown in a dropperette (Artificial Tears (PF)) diltiazem HCl 120 mg 120 mg PO DAILY 01/17/22 01/17/22 01/17/22 capsule,extended release 24 hr, controlled (DILT-XR) food supplemt, lactose-reduced 1 ea PO .EVERY AFTERNOON 01/17/22 01/17/22 01/16/22 13:00 (Protein Nutritional Shake) lip protective (padimate o) 1 ea TOPICAL QPM 01/17/22 01/17/22 Unknown methenamine hippurate 1 gram tablet 1 g PO BID 01/17/22 01/17/22 01/17/22 08:30 pantoprazole 40 mg tablet,delayed 40 mg PO BID 01/17/22 01/17/22 01/17/22 06:30 release sulfamethoxazole 800 1 tab PO Q12 01/17/22 01/17/22 01/17/22 08:30 mg-trimethoprim 160 mg tablet tramadol 50 mg tablet 100 mg PO TID 01/17/22 01/17/22 01/17/22 08:30 warfarin 5 mg tablet 5 mg PO HS 01/17/22 01/17/22 01/16/22 Active Medications Generic Name Dose Route Start Last Admin Trade Name Calli PRN Reason Stop Dose Admin Lactated Ringer's 1,000 mls @ 110 mls/hr 01/17/22 16:36 01/17/22 17:11 Lr IV 02/16/22 16:35 110 mls/hr .Q9H6M JAVID Administration Past Medical History Medical History (Updated 01/17/22 @ 17:17 by Leandro Durham, ) Abnormal urinalysis Altered mental status Atrial flutter with rapid ventricular response Constipation Fever History of multiple sclerosis Left-sided weakness Lymphedema of left leg Multiple sclerosis Paraplegia SVT (supraventricular tachycardia) Trigeminal neuralgia of left side of face Urinary retention Past Family History Family History Other Family history non-contributory Social History Smoking Status: Unknown if ever smoked Hx Alcohol Use: No Hx Substance Use: No substance use type: does not use Physical Exam Vital Signs Last Vital Signs Temp 100.8 F H 01/17/22 11:33 Pulse 63 01/17/22 14:40 Resp 18 01/17/22 14:40 BP 93/52 L 01/17/22 15:30 Pulse Ox 100 01/17/22 15:30 Testing Laboratory Results 01/17/22 11:55 01/17/22 11:55 PT 31.6 Seconds (9.0-12.0) H 01/17/22 12:52 INR 3.2 (0.9-1.1) H 01/17/22 12:52 APTT 50.7 Seconds (21.0-31.0) H* 01/17/22 12:52 Urine Color Yellow 01/17/22 12:58 Urine Appearance Slightly Cloudy (Clear) 01/17/22 12:58 Urine pH 6.0 (4.5-7.5) 01/17/22 12:58 Ur Specific [place] >= 1.030 (1.000-1.030) 01/17/22 12:58 Urine Protein 1+ (Negative) H 01/17/22 12:58 Urine Glucose (UA) Negative (Negative) 01/17/22 12:58 Urine Ketones Negative (Negative) 01/17/22 12:58 Urine Nitrite Positive (Negative) A 01/17/22 12:58 Ur Leukocyte Esterase 1+ (Negative) H 01/17/22 12:58 Urine RBC 5-10 /hpf (0-4) H 01/17/22 12:58 Urine WBC >30 /hpf (0-5) H 01/17/22 12:58 Ur Epithelial Cells 5-10 /lpf (0-5) H 01/17/22 12:58 Electrocardiogram Date: 01/17/22 Findings: + NSR @ (with pacs) Chest X-Ray Date: 01/17/22 IMPRESSION: 1. Right lower lung airspace opacity which may represent atelectasis, pneumonia, and/or aspiration. 2. Mild pulmonary edema is seen.
[2022-01-17] MEDS ORDERED: LIDOCAINE 2% 2 ML VIAL/AMP(20MG/ML) INFIL ONE (17:42)
[2022-01-17] MEDS ORDERED: PROPOFOL IV EMULSION 10 MG/ML 20 ML VIAL IV ONE (17:42)
[2022-01-17] MEDS ORDERED: fentaNYL citrate 100 MCG/2 ML VIAL ONE (17:43)
[2022-01-17] MEDS ORDERED: ONDANSETRON INJ 2 MG/ML 2 ML VIAL IV PRN (18:09)
[2022-01-17] MEDS ORDERED: ATROPINE SULFATE 0.1 MG/ML 10ML SYR IV PRN (18:09)
[2022-01-17] MEDS ORDERED: fentaNYL citrate 100 MCG/2 ML VIAL IV PRN (18:09)
[2022-01-17] MEDS ORDERED: ePHEDrine sulfate 50 MG/ML AMP IV PRN (18:09)
[2022-01-17] MEDS ORDERED: SUGAMMADEX SODIUM 200 MG/2 ML VIAL IV ONE (19:23)
[2022-01-17] MEDS ORDERED: DEXAMETHASONE SOD INJ 4 MG/ML VIAL ONE (19:26)
[2022-01-17] MEDS ORDERED: ONDANSETRON INJ 2 MG/ML 2 ML VIAL ONE (19:26)
--- NOTE | 2022-01-17 20:15 | Operative Report ---
PG Post Operative Report Pre & Post Diagnosis Operation Date: 01/17/22 14:25 Pre-Op Diagnosis: (1) Abscess of chest wall Post-Op Diagnosis: (1) Abscess of chest wall, necrotizing soft tissue infection I identified the patient and participated in the time-out.: Yes Procedure Operation Date: 01/17/22 14:25 Actual Procedures p Left Breast and Chest Wall Incision Drainage and Debridement including soft tissue including muscle greater than 50cm squared(Left) - Hair Mcknight DO, FACS Surgeon Hair Mcknight DO, FACS Neurology Director Fransisco Tate Estimated Blood Loss 50 Findings Consistent with Post-Op Diagnosis Dark, joshua turbid fluid. Culture sent. Incision and drainage performed. Necrotic fat and muscle debrided. Portion of tissue sent for culture. Remainder of tissue sent for biopsy. Wound approximately 20 cm x 15 cm with tunneling medially. Debridement greater than 50 cm. Specimens Chest wall abscess for culture Left chest wall tissue for culture Left chest wall abscess for pathology Drains None Anesthesia Type General Complications none Disposition Accompanied Patient To Recovery: No Disposition: Recovery Room Indications 81-year-old female on immunosuppressive therapy for MS presented with rapidly spreading chest wall infection involving her left breast. CT scan showed no drainable fluid collection but subcutaneous emphysema. Physical exam showed crepitus in the breast and chest wall along with drainage of dirty dishwater appearing fluid. High concern for necrotizing soft tissue infection. After discussion with her son, plan for incision and drainage, debridement of chest wall infection. The risks of the procedure were discussed, all questions were answered, and the patient agreed to proceed with surgery as planned. Description of Procedure The patient was properly identified, consented, and taken to the operating room where she was placed in the supine position. General endotracheal anesthesia was induced. SCDs, Gamboa catheter, and a safety belt were placed. Antibiotics had been administered in the emergency department. The patient also received Kcentra due to her elevated INR from Coumadin therapy. The patient's chest and left breast was prepped and draped in the standard sterile fashion. Surgical timeout was performed and all parties were in agreement that this was the correct patient and procedure to be performed and we continued as planned. Dark, turbid fluid was easily expressed from the small punctate wound on the middle of her chest. This fluid was sent for culture. An elliptical incision was performed over the small opening at the medial portion of the chest. Once this was removed the turbid fluid was suctioned. There was significant tunneling for about 10 to 15 cm medially. The tissue easily spread along the fascial planes with blunt dissection. The incision was extended laterally toward the nipple. The fat appeared to be necrotic and did not have good blood flow. This was debrided. The debridement continued down to the chest wall and portions of the pectoralis and serratus muscle were debrided the did not have good muscle twitch and were not bleeding. All the tissue was debrided back to healthy, bleeding tissue and the muscle had at least some twitch. Hemostasis was obtained and the wound was copiously irrigated. Hemostasis was again confirmed. The wound was packed with 3 Kerlix gauze rolls. ABDs were applied and tape was placed. A portion of the debrided necrotic tissue was sent for culture, and the remainder was sent for pathology. The overall approximate wound size was 20 x 15 cm. Medially it was about 2 cm deep, laterally it was approximately 10 cm deep near the nipple. There was some mild tunneling medially for another 2 to 3 cm. The patient was taken to the ICU for recovery and close monitoring. All sponge, instrument and needle counts were correct at the conclusion of the procedure. The patient tolerated the procedure well. The physician's dermatology physician assistant was present and scrubbed for the entirety of the case. He was critical in positioning the patient, prepping and draping, retraction and exposure, debridement of the tissue, placement of the dressings. I attest to the content of the Intraoperative Record and any orders documented therein. Any exceptions are noted below.
[2022-01-17] MEDS ORDERED: STAT IV Infusion **Titration per Protocol STA (20:51)
[2022-01-17] MEDS ORDERED: PROPOFOL IV EMULSION 10 MG/ML 100 ML VIAL IV ONE (20:52)
[2022-01-17] MEDS ORDERED: fentaNYL citrate 2,500 MCG/250 ML BAG IV ONE (20:56)
--- NOTE | 2022-01-17 20:56 | Critical Care Consultation ---
Date of Consultation January 17, 2022 Assessment & Plan (1) Admitted to intensive care unit: Reason Critically Ill: 81-year-old female status post debridement of area of necrotizing soft tissue injury to the LEFT-sided chest wall he remains intubated status post surgical intervention. NEURO - * CAM ICU: Unable to assess * Sedation: Propofol * Pain: Fentanyl CARDIAC/VASCULAR - * Hypertension, hyperlipidemia: * Hold oral antihypertensives while intubated and sedated. * Continue p.o. home medications when clinically appropriate. * Monitor on telemetry. RESPIRATORY - * Remained endotracheally intubated: * Status post surgical intervention. * Titrate down ventilator settings as tolerated. GI/NUTRITION - * N.p.o. overnight RENAL/LYTES - * No significant electrolyte derangements - * Gamboa in place - Strict I&Os. ENDO - * No h/o DM or THyroid Dz * BSGs per unit protocol. ISS --> gtt per unit policy. HEME - * Anticoagulated on Warfarin: * Required reversal w/ Vitamin K/F4-PCC preop ID - * Necrotizing soft tissue infection of the LEFT sided chest: * Source control s/o OR debridement. * Currently covered w/ Linezolid, Zosyn, Clindamycin. * Wound cultures pending. LINES/IV ACCESS - * PIVs x3 * ETT * Gamboa DVT PROPHYLAXIS - * Hold as patient recently on coumadin. * SCDs I have personally spent 35 minutes of critical care time in the direct management of this patient. This is a life/limb threatening event. This includes time spent evaluating patient, direct bedside care, chart review, placing orders, interpretation of diagnostic studies, discussion with consultants, patient, and family members, as well as other required patient management activities. This time is exclusive of all separately billable procedures, and teaching time and separate from and in addition to any other critical care service time. Thank you for allowing us to participate in the care of this patient. Please refer to my attending physician's documentation for any further recommendations. (2) Abscess or cellulitis of chest wall: (3) Endotracheally intubated: History of Present Illness Attending Physician: Roni Jolley MD History of Present Illness Patient is an 81-year-old female with a past medical history significant for paraplegia, multiple sclerosis, prior CVA, SVT, urinary retention, hypertension, hyperlipidemia, history of GI bleed, and history of recurrent urinary tract infections. Patient presented to the emergency department today with a soft tissue infection of the LEFT-sided chest. She had been treated with Keflex in the outpatient setting. She received aggressive antibiotic doses and there was concern for necrotizing fasciitis. The patient was taken to the OR where she underwent debridement of the wound. She presents to the ICU intubated and sedated with potential return for OR tomorrow. Patient unable to contribute to HPI. Allergies Allergy/AdvReac Type Severity Reaction Status Date / Time levofloxacin [From Levaquin] Allergy Unknown Unknown Unverified 01/17/22 13:00 Home Medications Medication Instructions Recorded Confirmed Type cholecalciferol (vitamin D3) 50 2,000 unit PO QAM 06/14/18 01/17/22 History mcg (2,000 unit) tablet (Vitamin D3) cyanocobalamin (vitamin B-12) 1,000 mcg PO QAM 06/14/18 01/17/22 History 1,000 mcg tablet (Vitamin B-12) glatiramer 20 mg/mL subcutaneous 20 mg SUBCUT QAM 06/14/18 01/17/22 History syringe (Copaxone) citalopram 10 mg tablet 10 mg PO DAILY 12/01/19 01/17/22 History gabapentin 600 mg tablet 1,200 mg PO BID 12/01/19 01/17/22 History multivitamin with minerals 1 tab PO DAILY 12/01/19 01/17/22 History potassium chloride 10 mEq 20 meq PO DAILY 12/01/19 01/17/22 History tablet,extended release(part/cryst) (Klor-Con M) acetaminophen 325 mg tablet 650 mg PO Q6 PRN 05/04/20 01/17/22 History loperamide 2 mg capsule 2 mg PO Q6H PRN 05/04/20 01/17/22 History Saccharomyces boulardii 250 mg 10,000 mmu cells PO BID 01/17/22 01/17/22 History capsule (Florastor) ascorbic acid (vitamin C) 1,000 mg 1 g PO BID 01/17/22 01/17/22 History tablet (Vitamin C) cephalexin 500 mg capsule 500 mg PO TID 01/17/22 01/17/22 History dextran 70-hypromellose eye drops 2 drp OPHTHALMIC (EYE) Q8 PRN 01/17/22 0 01/17/22 History in a dropperette (Artificial Tears (PF)) diltiazem HCl 120 mg 120 mg PO DAILY 01/17/22 01/17/22 History capsule,extended release 24 hr, controlled (DILT-XR) food supplemt, lactose-reduced 1 ea PO .EVERY AFTERNOON 01/17/22 01/17/22 History (Protein Nutritional Shake) lip protective (padimate o) 1 ea TOPICAL QPM 01/17/22 01/17/22 History methenamine hippurate 1 gram tablet 1 g PO BID 01/17/22 01/17/22 History pantoprazole 40 mg tablet,delayed 40 mg PO BID 01/17/22 01/17/22 History release sulfamethoxazole 800 1 tab PO Q12 01/17/22 01/17/22 History mg-trimethoprim 160 mg tablet tramadol 50 mg tablet 100 mg PO TID 01/17/22 01/17/22 History warfarin 5 mg tablet 5 mg PO HS 01/17/22 01/17/22 History Patient History Medical History (Updated 01/18/22 @ 07:08 by Roni Jolley MD) Abnormal urinalysis Altered mental status Atrial flutter with rapid ventricular response Constipation Fever History of multiple sclerosis Left-sided weakness Lymphedema of left leg Multiple sclerosis Paraplegia SVT (supraventricular tachycardia) Trigeminal neuralgia of left side of face Urinary retention Family History Other Family history non-contributory Social History Smoking Status: Unknown if ever smoked Years Smoked: 52; Second Hand Exposure: No; Do You Dip or Chew Tobacco: No; Hx Alcohol Use: No Hx Substance Use: No Preferred Language: Ecuadorean Communication Ability: Effective Rn Travel Required: No Beliefs That Will Affect Care: None Current Living Situation: Assisted Current Living Situation Comment: Home Health Other Information That Helps Us Care for You: No Feels Safe at Home: Declines to Answer Assistive Devices: Oxygen - Continuous Review of Systems Review of Systems: Unobtainable due to endotracheal tube and Unobtainable due to reduced consciousness Physical Exam Physical Exam: VITAL SIGNS - Vital signs and nursing notes were reviewed. GENERAL - 81-year-old female appearing her stated age who is in no acute distress. Intubated and sedated. SKIN - Large dressing to the LEFT sided chest clean, dry, and intact. HEAD - NC/AT. EYES - PERRL with EOMI bilaterally. Sclera anicteric. EARS - No deformities of external structures noted on gross examination bilaterally. NOSE - Midline and without cyanosis. No epistaxis or purulent drainage noted. MOUTH/OROPHARYNX - ETT in place. Without perioral cyanosis. NECK - Neck with FROM. Supple to palpation. No lymphadenopathy noted. No nuchal rigidity. LUNGS - Dressing to the LEFT sided chest as above. Chest wall symmetric without accessory muscle use, intercostals retractions, or central cyanosis. Normal vesicular breath sounds CTA B/L. No wheezes, rales, or rhonchi appreciated. CARDIAC - RRR with S1/S2. No murmur, rubs, or gallops appreciated. ABDOMEN - Abdominal contour obese without pulsations or visible masses. BS normoactive all four quadrants. No tenderness, palpable masses, hepatosplenomegaly, or ascites noted. EXTREMITIES - No clubbing or peripheral cyanosis. No pretibial edema present. +3/5 radial pulses palpated throughout. +5/5 strength noted in UE bilaterally. NEUROLOGIC - No focal neurological deficits noted. Limited exam secondary sedation. Results & Data Results & Data ([facility]) Vital Signs (Past 12 Hours) Vital Signs Temp Pulse Pulse Resp BP BP Pulse Ox 01/17/22 18:11 52 L 20 105/36 L 100 01/17/22 17:44 36.2 C L 54 L 16 107/50 L 100 01/17/22 16:25 36.7 C 61 20 124/66 95 01/17/22 15:30 93/52 L 100 01/17/22 15:00 104/43 L 99 01/17/22 14:40 63 18 98/52 L 99 01/17/22 14:30 101/37 L 99 01/17/22 14:20 100 01/17/22 14:10 99 01/17/22 14:00 115/44 L 98 01/17/22 13:50 98 01/17/22 13:43 98 01/17/22 13:20 68 22 99 01/17/22 13:10 73 20 99 01/17/22 13:00 75 17 107/48 L 99 01/17/22 11:53 81 20 99 01/17/22 11:33 38.2 C H 81 20 119/57 L 99 Coding Level of Care Code Critical Care 1st 30-74 mins Diagnoses Admitted to intensive care unit Z78.9 Abscess or cellulitis of chest wall Endotracheally intubated Z97.8 Time Spent (min) 35
[2022-01-17] MEDS ORDERED: PANTOprazole 40 MG TAB PO SCH (21:00)
[2022-01-17] MEDS: ACETAMINOPHEN 1,000 MG/100 ML VIAL IV SCH (21:10)
[2022-01-17] MEDS: FAMOTIDINE 20 MG in SYRINGE 3 ML IV SCH (21:10)
[2022-01-17] MEDS: fentaNYL citrate 2,500 MCG/250 ML BAG IV SCH (21:11)
[2022-01-17] MEDS: propofoL 1,000 MG/100 ML VIAL IV SCH (21:12)
[2022-01-17] MEDS: PROPOFOL BOLUS FROM BAG IV PRN (21:13)
[2022-01-17 21:57] LABS: iSTAT Art Bld Gas pCO2 Correct 41 mmHg (35-46); iSTAT Art Bld Gas pH Corrected 7.354 (7.35-7.45); iSTAT Arterial Blood Gas HCO3 23 meg/L (19-24); iSTAT Arterial Blood Gas pCO2 42 mmHg (35-46); iSTAT Arterial Blood Gas pH 7.35 (7.35-7.45); iSTAT Arterial Blood Gas pO2 96 mmHg (80-95); iSTAT Arterial Blood Gas pO2 C 93; iSTAT Carbon Dioxide 24 mmol/L (24-31); iSTAT FiO2 40 %; iSTAT Hematocrit 29 % (37-47); iSTAT Hemoglobin 9.9 g/dl (12.0-16.0); iSTAT Potassium 3.1 mmol/L (3.3-5.0); iSTAT Site R Radial; iSTAT Sodium 135 mmol/L (135-144)
--- NOTE | 2022-01-17 21:59 | Anesthesiology Progress Note ---
Date of Service January 17, 2022 Anesthesia Post Procedure Vital Signs Vital Signs: Temp Pulse Pulse Resp BP BP Pulse Ox 01/17/22 20:55 97.9 F 68 20 137/61 98 01/17/22 20:45 68 18 131/59 L 98 01/17/22 20:35 97.7 F 66 18 137/61 95 01/17/22 20:30 58 L 18 98 01/17/22 18:11 52 L 20 105/36 L 100 01/17/22 17:44 97.2 F L 54 L 16 107/50 L 100 01/17/22 16:25 98.1 F 61 20 124/66 95 01/17/22 15:30 93/52 L 100 01/17/22 15:00 104/43 L 99 01/17/22 14:40 63 18 98/52 L 99 01/17/22 14:30 101/37 L 99 01/17/22 14:20 100 01/17/22 14:10 99 01/17/22 14:00 115/44 L 98 01/17/22 13:50 98 01/17/22 13:43 98 01/17/22 13:20 68 22 99 01/17/22 13:10 73 20 99 01/17/22 13:00 75 17 107/48 L 99 01/17/22 11:53 81 20 99 01/17/22 11:33 100.8 F H 81 20 119/57 L 99 Transfer of Care Handoff Completed per policy Notes Mental Status: see notes below (Intubated and sedated in ICU) Nausea / Vomiting: adequately controlled Pain: adequately controlled Airway Patency, RR, SpO2: stable & adequate (ETT in place) BP & HR: stable & adequate Hydration State: stable & adequate Anesthetic Complications: no major complications apparent
[2022-01-17 22:10] LABS: Hematocrit (blood only) 30.7 % (37-47); Hemoglobin 9.6 g/dL (12.0-16.0)
[2022-01-17 22:40] LABS: BUN Creatinine Ratio 22.7 (10-20); Calcium 7.9 mg/dl (8.5-10.1); Creatinine Clr Calc Pharmacy 65.4 ml/min; Est GFR (African American) 85.4 ml/min; Est GFR (Non-African American) 73.7 ml/min; Potassium 3.8 mmol/L (3.5-5.1)
[2022-01-17] MEDS: PIPERACILLIN/TAZOBACTAM 4.5 GM in DEXTROSE 5% 100 ML IV SCH (23:38)
[2022-01-18] MEDS: CLINDAMYCIN/D5W 900 MG/50 ML BAG IV SCH ×4 (00:30→23:57)
[2022-01-18] MEDS: LACTATED RINGER'S 1,000 ML IV SCH ×2 (03:20→15:50)
[2022-01-18] MEDS: propofoL 1,000 MG/100 ML VIAL IV SCH ×3 (03:21→16:54)
[2022-01-18] MEDS: LINEZOLID 600 MG/300 ML BAG IV SCH ×2 (03:21→16:54)
[2022-01-18] MEDS ORDERED: LINEZOLID 600 MG/300 ML D5W IV SCH (04:00)
[2022-01-18] MEDS: ACETAMINOPHEN 1,000 MG/100 ML VIAL IV SCH ×3 (05:09→22:35)
[2022-01-18] MEDS: PIPERACILLIN/TAZOBACTAM 4.5 GM in DEXTROSE 5% 100 ML IV SCH ×3 (05:10→18:36)
[2022-01-18 05:56] LABS: Mean Corpuscular Hgb Conc 30.8 g/dL (32-36); Nucleated RBC # (auto) 0.02 K/uL (0-0); Nucleated RBC % (auto) 0.1 %; Platelet Count 370 K/uL (130-400)
[2022-01-18 05:57] LABS: Hematocrit (blood only) 29.5 % (37-47); Hemoglobin 9.1 g/dL (12.0-16.0); Mean Corpuscular Hemoglobin 27.5 pg (25-34); Mean Corpuscular Volume 89.1 fL (80-100); RDW Coefficient of Variation 15.2 % (11.5-14.5); RDW Standard Deviation 50.1 fL (36.4-46.3); Red Blood Count 3.31 M/uL (4.2-5.4); White Blood Count 13.07 K/uL (4.8-10.8)
[2022-01-18 06:08] LABS: INR 1.1 (0.9-1.1); Prothrombin Time 11.3 Seconds (9.0-12.0)
[2022-01-18 06:15] LABS: Basophils # (auto) 0.01 K/uL (0-0.2); Basophils % (auto) 0.1 %; Echinocytes 1+; Immature Granulocytes # (auto) 0.05 K/uL (0.00-0.02); Immature Granulocytes % (auto) 0.4 %; Lymphocytes # (auto) 0.65 K/uL (1.2-3.4); Monocytes % (auto) 2.3 %; Neutrophils # (auto) 12.06 K/uL (1.4-6.5); Neutrophils % (auto) 92.2 %
[2022-01-18 06:26] LABS: Anion Gap 7 (3-11); BUN Creatinine Ratio 19.5 (10-20); Blood Urea Nitrogen 16 mg/dl (6-23); Carbon Dioxide 23 mmol/L (21-32); Chloride 103 mmol/L (98-107); Est GFR (African American) 76.7 ml/min; Est GFR (Non-African American) 66.2 ml/min; Glucose 208 mg/dl (70-99(Fasting)); Magnesium 1.9 mg/dl (1.7-2.4); Phosphorus 3.3 mg/dl (2.5-4.9); Sodium 133 mmol/L (136-145)
--- NOTE | 2022-01-18 07:11 | XRay Report ---
SINGLE VIEW CHEST CLINICAL HISTORY: Respiratory failure. FINDINGS: An AP, portable, upright chest radiograph is compared to chest x-ray and chest CT performed earlier the same day 01/17/2022. An endotracheal tube has been placed. The tip is not well visualized and projects over the thoracic inlet approximately 8 cm above the mich The heart is enlarged notin g atherosclerotic calcification of the thoracic aorta. The pulmonary vasculature is noncongested. The re is volume loss in the right lung with elevation of the right hemidiaphragm. Scarring/atelectasis i s noted at the lung bases. No large pleural effusion or pneumothorax is seen. The skeletal structures are osteopenic. The bony thorax is grossly intact. Soft tissue gas projects over the left chest wall . IMPRESSION: 1. An endotracheal tube has been placed. The tip is not well visualized and projects over the thoraci c inlet approximately 8 cm above the mich. 2. Cardiomegaly without radiographic evidence of congestive failure. 3. Soft tissue gas projects over the left chest wall. ACT 112: Negative or not required by law. Electronically signed by: Issac Rebolledo M.D. 01/18/2022 7:10 AM
--- NOTE | 2022-01-18 07:24 | Hospitalist Progress Note ---
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 Patient is DNR/DNI but would want supportive care also some full thickness skin irritation to buttock (2) Sepsis: Plan: Sepsis from chest wall soft tissue infection and possible urine source - Source control debridement per surgical services - ABX therapy as above - pending cultures - Maintain MAPS >65 (3) Catheter-associated urinary tract infection: Plan: Catheter change out - in past grew E. Coli ESBL sensavite to Zosyn- as above transition to Zosyn - ABX as above (4) Esophagitis: Plan: Chronic continue PPI - NPO (5) Paraplegia: Plan: Chronic condition from her MS as per HPI resident of [facility] for this reason (6) HLD (hyperlipidemia): Plan: Continue statin when able (7) HTN (hypertension): Plan: Hold Diltiazem at this time until hemodynamics proven stable (8) Multiple sclerosis: Plan: Hold Copaxone - not on formulary Plan: surveillance for DVT chemo prophylaxis in the next few days, DVT commented december 2018 was innitially on apixiban Admission and Anticipated Discharge Date Admission Date: January 17, 2022 Subjective Pt is sedated and ventilated, she is on Fentanyl and propafol, plans for wound vacc 01/19/22 Review of Systems Review of Systems: Unobtainable due to cognitive status and Unobtainable due to endotracheal tube Physical Exam Physical Exam: The patient appeared stable, supported and sedated Vital signs as documented. Lungs are clear to auscultation and appear unlabored Cardiac exam, Rhythm is regular.. Abdominal exam reveals normal bowel sounds, soft Extremities are nonedematous and both pedal pulses are normal. Skin exam with large full thickness defect where emergent debridement was undertaken under suspicion of necrotizing fascitiis also with buttock decubitus as documented in wound care assessment as full t hickness with structure Results & Data Results & Data ([facility]) Vital Signs (Past 12 Hours) Vital Signs Temp Pulse Pulse Resp BP BP Pulse Ox 01/18/22 06:00 96.4 F L 46 L 18 101/54 L 96 01/18/22 05:50 96.4 F L 49 L 18 107/53 L 98 01/18/22 05:00 98.1 F 56 L 18 99/54 L 97 01/18/22 04:30 96.4 F L 65 19 127/64 96 01/18/22 04:00 97.3 F L 52 L 18 105/52 L 98 01/18/22 03:44 65 18 100 01/18/22 03:30 96.1 F L 54 L 18 111/58 L 98 01/18/22 03:04 97.7 F 72 18 95/58 L 93 01/18/22 03:00 96.1 F L 48 L 18 84/45 L 97 01/18/22 02:45 96.3 F L 49 L 18 86/44 L 98 01/18/22 02:30 96.3 F L 54 L 18 84/48 L 97 01/18/22 02:15 96.3 F L 49 L 18 88/46 L 98 01/18/22 02:00 96.4 F L 50 L 18 88/52 L 98 01/18/22 01:45 96.4 F L 55 L 18 88/46 L 99 01/18/22 01:30 96.3 F L 53 L 18 107/55 L 100 01/18/22 01:15 96.3 F L 50 L 18 91/51 L 98 01/18/22 01:00 96.3 F L 50 L 18 97/50 L 99 01/18/22 00:45 96.3 F L 59 L 18 122/66 99 01/18/22 00:41 96.4 F L 64 16 102/60 96 01/18/22 00:30 96.4 F L 48 L 18 86/50 L 98 01/18/22 00:18 51 L 01/18/22 00:15 96.6 F L 50 L 18 90/49 L 98 01/18/22 00:00 96.6 F L 47 L 18 90/48 L 98 01/17/22 23:45 96.8 F L 50 L 18 90/49 L 99 01/17/22 23:30 96.6 F L 50 L 18 98/53 L 100 01/17/22 23:15 96.8 F L 57 L 18 109/55 L 99 01/17/22 23:00 96.8 F L 58 L 18 95/49 L 100 01/17/22 22:51 54 L 18 100 01/17/22 22:45 96.8 F L 50 L 18 106/51 L 100 01/17/22 22:30 96.6 F L 53 L 16 124/57 L 100 01/17/22 22:16 16 130/66 01/17/22 22:01 52 L 18 127/58 L 86 L 01/17/22 22:00 51 L 16 94 01/17/22 21:35 63 18 122/58 L 96 01/17/22 21:30 53 L 16 125/55 L 99 01/17/22 21:25 54 L 18 130/59 L 98 01/17/22 21:20 56 L 18 132/57 L 98 01/17/22 21:15 55 L 16 130/64 98 01/17/22 21:10 66 18 125/58 L 98 01/17/22 21:05 62 18 127/53 L 97 01/17/22 21:00 60 16 134/59 L 96 01/17/22 20:55 97.9 F 68 20 137/61 98 01/17/22 20:45 68 18 131/59 L 98 01/17/22 20:35 97.7 F 66 18 137/61 95 01/17/22 20:30 58 L 18 98 PG Care Time/CCT Total # of Minutes Spent Total Time Spent with Patient: Total time spent is greater than 50% in coordination of care (as documented) at patient's floor/unit and/or counseling patient: Coding Level of Care Code 19007 Subseq Hosp Care Lvl 2 Diagnoses Abscess or cellulitis of chest wall Sepsis A41.9 Sepsis acute organ dysfunction status: unspecified Sepsis type: sepsis due to unspecified organism Catheter-associated urinary tract infection T83.511A; N39.0 Esophagitis K20.9 Paraplegia G82.20 HLD (hyperlipidemia) E78.5 Hyperlipidemia type: unspecified HTN (hypertension) I10 Hypertension type: essential hypertension Multiple sclerosis G35 (1) HLD (hyperlipidemia) Hyperlipidemia type: unspecified Qualified Code(s): E78.5 - Hyperlipidemia, unspecified (2) Sepsis Sepsis acute organ dysfunction status: unspecified Sepsis type: sepsis due to unspecified organism Qualified Code(s): A41.9 - Sepsis, unspecified organism (3) HTN (hypertension) Hypertension type: essential hypertension Qualified Code(s): I10 - Essential (primary) hypertension
[2022-01-18] MEDS: FAMOTIDINE 20 MG in SYRINGE 3 ML IV SCH ×2 (08:39→20:53)
[2022-01-18] MEDS ORDERED: CITALOPRAM 10 MG PO SCH (09:00)
--- NOTE | 2022-01-18 09:27 | Critical Care Progress Note ---
Date of Service January 18, 2022 Assessment & Plan (1) Admitted to intensive care unit: Plan: Reason Critically Ill: 81-year-old female status post debridement of area of necrotizing soft tissue injury to the LEFT-sided chest wall he remains intubated status post surgical intervention. NEURO - * CAM ICU: Unable to assess * Sedation: Propofol * Pain: Fentanyl CARDIAC/VASCULAR - * Hypertension, hyperlipidemia: * Hold oral antihypertensives while intubated and sedated. * Continue p.o. home medications when clinically appropriate. * Monitor on telemetry. RESPIRATORY - * On minimal vent settings we will proceed with extubation after wound VAC placement today GI/NUTRITION - * N.p.o. overnight RENAL/LYTES - * No significant electrolyte derangements - * Gamboa in place - Strict I&Os. ENDO - * No h/o DM or THyroid Dz * BSGs per unit protocol. ISS --> gtt per unit policy. 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 * Currently covered w/ Linezolid, Zosyn, Clindamycin * -Continue broad-spectrum at this time awaiting culture data prior to de- escalation * Wound cultures pending. LINES/IV ACCESS - * PIVs x3 * ETT * Gamboa DVT PROPHYLAXIS - * Hold as patient recently on coumadin. * SCDs Patient was discussed in multidisciplinary rounds I have personally spent 40 minutes of critical care time in the direct management of this patient. This is a life/limb threatening event. This includes time spent evaluating patient, direct bedside care, chart review, placing orders, interpretation of diagnostic studies, discussion with consultants, patient, and family members, as well as other required patient management activities. This time is exclusive of all separately billable procedures, and teaching time and separate from and in addition to any other critical care service time. (2) Abscess or cellulitis of chest wall: (3) Endotracheally intubated: Admission and Anticipated Discharge Date Admission Date: January 17, 2022 Subjective Remained intubated for possible return to the operating room. Discussed with general surgery no indication for repeat exploration. Wound team consulted for wound VAC placement. Will wait till wound VAC placed before proceeding with extubation Review of Systems Review of Systems: Unobtainable due to endotracheal tube Physical Exam Physical Exam: General: Sedated. nontoxic. Skin: Warm, dry, Head: Atraumatic Ears, nose, mouth and throat: airway obscured by endotracheal tube Cardiovascular: Normal peripheral perfusion Chest: Surgical dressing in place, no shadowing Respiratory: Ventilator settings reviewed Gastrointestinal: Non distended Musculoskeletal: No deformity Results & Data Results & Data ([facility]) Vital Signs (Past 12 Hours) Vital Signs Temp Pulse Resp BP Pulse Ox 01/18/22 07:15 48 L 20 98 01/18/22 06:00 35.8 C L 46 L 18 101/54 L 96 01/18/22 05:50 35.8 C L 49 L 18 107/53 L 98 01/18/22 05:00 36.7 C 56 L 18 99/54 L 97 01/18/22 04:30 35.8 C L 65 19 127/64 96 01/18/22 04:00 36.3 C L 52 L 18 105/52 L 98 01/18/22 03:44 65 18 100 01/18/22 03:30 35.6 C L 54 L 18 111/58 L 98 01/18/22 03:04 36.5 C 72 18 95/58 L 93 01/18/22 03:00 35.6 C L 48 L 18 84/45 L 97 01/18/22 02:45 35.7 C L 49 L 18 86/44 L 98 01/18/22 02:30 35.7 C L 54 L 18 84/48 L 97 01/18/22 02:15 35.7 C L 49 L 18 88/46 L 98 01/18/22 02:00 35.8 C L 50 L 18 88/52 L 98 01/18/22 01:45 35.8 C L 55 L 18 88/46 L 99 01/18/22 01:30 35.7 C L 53 L 18 107/55 L 100 01/18/22 01:15 35.7 C L 50 L 18 91/51 L 98 01/18/22 01:00 35.7 C L 50 L 18 97/50 L 99 01/18/22 00:45 35.7 C L 59 L 18 122/66 99 01/18/22 00:41 35.8 C L 64 16 102/60 96 01/18/22 00:30 35.8 C L 48 L 18 86/50 L 98 01/18/22 00:18 51 L 01/18/22 00:15 35.9 C L 50 L 18 90/49 L 98 01/18/22 00:00 35.9 C L 47 L 18 90/48 L 98 01/17/22 23:45 36.0 C L 50 L 18 90/49 L 99 01/17/22 23:30 35.9 C L 50 L 18 98/53 L 100 01/17/22 23:15 36.0 C L 57 L 18 109/55 L 99 01/17/22 23:00 36.0 C L 58 L 18 95/49 L 100 01/17/22 22:51 54 L 18 100 01/17/22 22:45 36.0 C L 50 L 18 106/51 L 100 01/17/22 22:30 35.9 C L 53 L 16 124/57 L 100 01/17/22 22:16 16 130/66 01/17/22 22:01 52 L 18 127/58 L 86 L 01/17/22 22:00 51 L 16 94 01/17/22 21:35 63 18 122/58 L 96 01/17/22 21:30 53 L 16 125/55 L 99 Critical Care Results & Data Vital Signs (Past 12 Hours) Vital Signs Temp Pulse Resp BP Pulse Ox 01/18/22 07:15 48 L 20 98 01/18/22 06:00 35.8 C L 46 L 18 101/54 L 96 01/18/22 05:50 35.8 C L 49 L 18 107/53 L 98 01/18/22 05:00 36.7 C 56 L 18 99/54 L 97 01/18/22 04:30 35.8 C L 65 19 127/64 96 01/18/22 04:00 36.3 C L 52 L 18 105/52 L 98 01/18/22 03:44 65 18 100 01/18/22 03:30 35.6 C L 54 L 18 111/58 L 98 01/18/22 03:04 36.5 C 72 18 95/58 L 93 01/18/22 03:00 35.6 C L 48 L 18 84/45 L 97 01/18/22 02:45 35.7 C L 49 L 18 86/44 L 98 01/18/22 02:30 35.7 C L 54 L 18 84/48 L 97 01/18/22 02:15 35.7 C L 49 L 18 88/46 L 98 01/18/22 02:00 35.8 C L 50 L 18 88/52 L 98 01/18/22 01:45 35.8 C L 55 L 18 88/46 L 99 01/18/22 01:30 35.7 C L 53 L 18 107/55 L 100 01/18/22 01:15 35.7 C L 50 L 18 91/51 L 98 01/18/22 01:00 35.7 C L 50 L 18 97/50 L 99 01/18/22 00:45 35.7 C L 59 L 18 122/66 99 01/18/22 00:41 35.8 C L 64 16 102/60 96 01/18/22 00:30 35.8 C L 48 L 18 86/50 L 98 01/18/22 00:18 51 L 01/18/22 00:15 35.9 C L 50 L 18 90/49 L 98 01/18/22 00:00 35.9 C L 47 L 18 90/48 L 98 01/17/22 23:45 36.0 C L 50 L 18 90/49 L 99 01/17/22 23:30 35.9 C L 50 L 18 98/53 L 100 01/17/22 23:15 36.0 C L 57 L 18 109/55 L 99 01/17/22 23:00 36.0 C L 58 L 18 95/49 L 100 01/17/22 22:51 54 L 18 100 01/17/22 22:45 36.0 C L 50 L 18 106/51 L 100 01/17/22 22:30 35.9 C L 53 L 16 124/57 L 100 01/17/22 22:16 16 130/66 01/17/22 22:01 52 L 18 127/58 L 86 L 01/17/22 22:00 51 L 16 94 01/17/22 21:35 63 18 122/58 L 96 01/17/22 21:30 53 L 16 125/55 L 99 Lab & Micro Results (Past 24 Hours) RBC 3.31 M/uL (4.2-5.4) L 01/18/22 WBC 13.07 K/uL (4.8-10.8) H 01/18/22 Hgb 9.1 g/dL (12.0-16.0) L 01/18/22 Hct 29.5 % (37-47) L 01/18/22 MCV 89.1 fL (80-100) 01/18/22 MCH 27.5 pg (25-34) 01/18/22 MCHC 30.8 g/dL (32-36) L 01/18/22 RDW Standard Deviation 50.1 fL (36.4-46.3) H 01/18/22 RDW Coefficient of Variation 15.2 % (11.5-14.5) H 01/18/22 Plt Count 370 K/uL (130-400) 01/18/22 MPV 10.0 fL (7.4-10.4) 01/18/22 Nucleated Red Blood Cells % (auto) 0.1 % 01/18/22 Nucleated RBC Absolute Count (auto) 0.02 K/uL (0-0) H 01/18/22 Neutrophils (%) (Auto) 92.2 % 01/18/22 Lymphocytes (%) (Auto) 5.0 % 01/18/22 Monocytes # (Auto) 0.30 K/uL (0.11-0.59) 01/18/22 Eosinophils # (Auto) 0.00 K/uL (0-0.5) 01/18/22 Immature Granulocyte % (Auto) 0.4 % 01/18/22 Neutrophils # (Auto) 12.06 K/uL (1.4-6.5) H 01/18/22 Lymphocytes # (Auto) 0.65 K/uL (1.2-3.4) L 01/18/22 Monocytes # (Auto) 0.30 K/uL (0.11-0.59) 01/18/22 Eosinophils # (Auto) 0.00 K/uL (0-0.5) 01/18/22 Basophils # (Auto) 0.01 K/uL (0-0.2) 01/18/22 Immature Granulocyte # (Auto) 0.05 K/uL (0.00-0.02) H 01/18/22 Echinocytes 1+ 01/18/22 Na 133 mmol/L (136-145) L 01/18/22 K 3.3 mmol/L (3.5-5.1) L 01/18/22 Cl 103 mmol/L (98-107) 01/18/22 CO2 23 mmol/L (21-32) 01/18/22 Anion Gap 7 (3-11) 01/18/22 BUN 16 mg/dl (6-23) 01/18/22 Creatinine 0.82 mg/dl (0.6-1.2) 01/18/22 Estimated GFR ( Amer) 76.7 ml/min 01/18/22 Estimated GFR (Non-Af Amer) 66.2 ml/min 01/18/22 BUN/Creatinine Ratio 19.5 (10-20) 01/18/22 Glu 208 mg/dl (70-99(Fasting)) H 01/18/22 Ca 8.0 mg/dl (8.5-10.1) L 01/18/22 Phosphorus Level 3.3 mg/dl (2.5-4.9) 01/18/22 Total Bilirubin 0.3 mg/dl (0.2-1.0) 01/17/22 AST 16 U/L (13-39) 01/17/22 ALT 13 U/L (7-52) 01/17/22 Alkaline Phosphatase 100 U/L (34-104) 01/17/22 TP 6.8 gm/dl (6.0-8.3) 01/17/22 Albumin 3.1 gm/dl (3.4-5.0) L 01/17/22 Globulin 3.7 gm/dl (2.5-4.0) 01/17/22 Albumin/Globulin Ratio 0.8 (0.9-2) L 01/17/22 Mg 1.9 mg/dl (1.7-2.4) 01/18/22 05:33 01/18/22 Calcium Level 8.0 mg/dl (8.5-10.1) L 01/18/22 05:33 01/18/22 Prothromb Time International Ratio 1.1 (0.9-1.1) 01/18/22 05:33 01/18/22 Khari Test NA 01/17/22 21:40 01/17/22 Microbiology 01/17/22 12:58 Urine Culture - Final Urine,Straight Cath More than three types of organisms present, all high counts. Repeat collection recommended. No further identifications or sensitivities to follow. 01/17/22 11:59 Gram Stain - Final Chest 01/17/22 Unknown Gram Stain - Final Chest Diagnostic Findings (Past 24 Hours) Chest X-Ray 01/17/22 11:53 XR chest 1V portable CLINICAL HISTORY: SEPSIS TECHNIQUE: Single frontal radiograph of the chest was obtained. Comparison: Comparison is made to chest radiograph 05/04/2020 FINDINGS: Exam is limited by patient rotation. The cardiomediastinal silhouette is normal. Airspace opacity is seen in the right lower lung, new from prior exam. Prominence of the pulmonary vasculature is seen. No evidence of pleural effusion or pneumothorax. IMPRESSION: 1. Right lower lung airspace opacity which may represent atelectasis, pneumonia, and/or aspiration. 2. Mild pulmonary edema is seen. ACT 112: Negative or not required by law. Electronically signed by: Ted Armstrong M.D. 01/17/2022 12:[address] 01/17/22 12:18 CT CHEST WITH IV CONTRAST; ABDOMEN AND PELVIS CT WITH IV CONTRAST HISTORY: Acute left chest wall soft tissue infection sepsis, chest wall abscess/cellulitis TECHNIQUE: Multiaxial CT images of the chest, abdomen and pelvis were performed following the IV administration of 95 cc of Optiray, A dose lowering technique was utilized adhering to the principles of ALARA. COMPARISON STUDY: Chest radiograph of same day, CT abdomen and pelvis 12/10/2018 FINDINGS: CT CHEST: There are a few subcentimeter hypodensities of the left thyroid lobe measuring up to 4 mm. There is no lymphadenopathy. Left axillary chain lymph nodes measure up to 9 mm are likely reactive. Moderate cardiomegaly with extensive coronary artery calcifications. Atherosclerosis of the thoracic aorta without aneurysm or dissection. The opacified pulmonary artery appears unremarkable. Left hemidiaphragmatic elevation. There is suggestion of mild pulmonary emphysema. No pneumothorax, large pleural effusion or overt pulmonary edema. Linear subsegmental left greater than right bibasilar opacities suggest atelectasis versus scarring. There is a subsegmental cluster of solid nodules in the anterior left upper lobe measuring up to 3 mm which are likely infectious or inflammatory. There is minimal left basilar mucous plugging. There is moderate subcutaneous edema with skin thickening and subcutaneous emphysema of the left chest wall/left breast. The left breast is partially outside the [id number]. There is no drainable fluid collection. Degenerative changes of the shoulders and spine. There is no acute fracture or destructive bone lesion identified. Mild wedge deformities of the upper thoracic spine are age-indeterminate however are favored to be chronic. Chronic moderate L1 compression deformity, stable from 2019. Mild inflammatory changes involve the anterior costochondral junctions of the left fourth through sixth ribs. CT ABDOMEN/PELVIS: No pneumatosis or pneumoperitoneum. Limited exam secondary to positioning and respiratory motion artifact. Unremarkable spleen, moderately atrophic pancreas and adrenal glands. Distended gallbladder without CT evidence of acute cholecystitis. Unremarkable liver. There is patency of the hepatic and portal veins. Cortical thinning of the bilateral kidneys. Exophytic 2.3 cm cyst of the superior pole left kidney. Additional subcentimeter hypodensities of the kidneys are too small to characterize. Decompressed urinary bladder with Gamboa catheter in place. Hysterectomy. Atherosclerosis of the aorta and branch vessels without aneurysm. There is no lymphadenopathy identified. Tiny hiatal hernia. There is no small bowel obstruction. Hyperdense stool is noted within the rectum. There is wall thickening of the distal sigmoid and rectum with mild perirectal inflammatory stranding and luminal narrowing. There is upstream gaseous distention of the sigmoid measuring up to 6.3 cm. Colonic diverticulosis. Moderate fecal retention. Noninflamed appendix. Degenerative changes of the spine, pelvis and hips severe right and moderate left degeneration of the hips. Lumbar levoscoliosis. Chronic L1 compression deformity. IMPRESSION: 1. Extensive cellulitis of the left chest wall and breast with subcutaneous emphysema which may represent associated fasciitis. No fluid collection to suggest abscess. 2. Associated inflammatory changes are noted surrounding the anterior costochondral junctions of the left fourth through sixth ribs. No cortical destruction to suggest osteomyelitis at this time. 3. Luminal narrowing with circumferential wall thickening of the distal sigmoid and rectum is noted with mild perirectal inflammatory stranding. Additionally, there is mild upstream gaseous distention of the proximal to mid sigmoid colon. Findings may secondary to partial distention, however a stricture or less likely a mucosal lesion could appear similarly. Correlation with colonoscopy recommended. 4. No bowel obstruction. 5. Additional findings as above. ACT 112: Negative or not required by law. The above report was generated using voice recognition software. It may contain grammatical, syntax or spelling errors. Electronically signed by: Devaughn López M.D. 01/17/2022 2:20 PM Abdomen/Pelvis CT 01/17/22 12:32 CT CHEST WITH IV CONTRAST; ABDOMEN AND PELVIS CT WITH IV CONTRAST HISTORY: Acute left chest wall soft tissue infection sepsis, chest wall abscess/cellulitis TECHNIQUE: Multiaxial CT images of the chest, abdomen and pelvis were performed following the IV administration of 95 cc of Optiray, A dose lowering technique was utilized adhering to the principles of ALARA. COMPARISON STUDY: Chest radiograph of same day, CT abdomen and pelvis 12/10/2018 FINDINGS: CT CHEST: There are a few subcentimeter hypodensities of the left thyroid lobe measuring up to 4 mm. There is no lymphadenopathy. Left axillary chain lymph nodes measure up to 9 mm are likely reactive. Moderate cardiomegaly with extensive coronary artery calcifications. Atherosclerosis of the thoracic aorta without aneurysm or dissection. The opacified pulmonary artery appears unremarkable. Left hemidiaphragmatic elevation. There is suggestion of mild pulmonary emphysema. No pneumothorax, large pleural effusion or overt pulmonary edema. Linear subsegmental left greater than right bibasilar opacities suggest atelectasis versus scarring. There is a subsegmental cluster of solid nodules in the anterior left upper lobe measuring up to 3 mm which are likely infectious or inflammatory. There is minimal left basilar mucous plugging. There is moderate subcutaneous edema with skin thickening and subcutaneous emphysema of the left chest wall/left breast. The left breast is partially outside the [id number]. There is no drainable fluid collection. Degenerative changes of the shoulders and spine. There is no acute fracture or destructive bone lesion identified. Mild wedge deformities of the upper thoracic spine are age-indeterminate however are favored to be chronic. Chronic moderate L1 compression deformity, stable from 2019. Mild inflammatory changes involve the anterior costochondral junctions of the left fourth through sixth ribs. CT ABDOMEN/PELVIS: No pneumatosis or pneumoperitoneum. Limited exam secondary to positioning and respiratory motion artifact. Unremarkable spleen, moderately atrophic pancreas and adrenal glands. Distended gallbladder without CT evidence of acute cholecystitis. Unremarkable liver. There is patency of the hepatic and portal veins. Cortical thinning of the bilateral kidneys. Exophytic 2.3 cm cyst of the superio r pole left kidney. Additional subcentimeter hypodensities of the kidneys are too small to characterize. Decompressed urinary bladder with Gamboa catheter in place. Hysterectomy. Atherosclerosis of the aorta and branch vessels without aneurysm. There is no lymphadenopathy identified. Tiny hiatal hernia. There is no small bowel obstruction. Hyperdense stool is noted within the rectum. There is wall thickening of the distal sigmoid and rectum with mild perirectal inflammatory stranding and luminal narrowing. There is upstream gaseous distention of the sigmoid measuring up to 6.3 cm. Colonic diverticulosis. Moderate fecal retention. Noninflamed appendix. Degenerative changes of the spine, pelvis and hips severe right and moderate left degeneration of the hips. Lumbar levoscoliosis. Chronic L1 compression deformity. IMPRESSION: 1. Extensive cellulitis of the left chest wall and breast with subcutaneous emphysema which may represent associated fasciitis. No fluid collection to suggest abscess. 2. Associated inflammatory changes are noted surrounding the anterior costochondral junctions of the left fourth through sixth ribs. No cortical destruction to suggest osteomyelitis at this time. 3. Luminal narrowing with circumferential wall thickening of the distal sigmoid and rectum is noted with mild perirectal inflammatory stranding. Additionally, there is mild upstream gaseous distention of the proximal to mid sigmoid colon. Findings may secondary to partial distention, however a stricture or less likely a mucosal lesion could appear similarly. Correlation with colonoscopy recommended. 4. No bowel obstruction. 5. Additional findings as above. ACT 112: Negative or not required by law. The above report was generated using voice recognition software. It may contain grammatical, syntax or spelling errors. Electronically signed by: Devaughn López M.D. 01/17/2022 2:20 PM Chest X-Ray 01/17/22 21:25 SINGLE VIEW CHEST CLINICAL HISTORY: Respiratory failure. FINDINGS: An AP, portable, upright chest radiograph is compared to chest x-ray and chest CT performed earlier the same day 01/17/2022. An endotracheal tube has been placed. The tip is not well visualized and projects over the thoracic inlet approximately 8 cm above the mich The heart is enlarged noting atherosclerotic calcification of the thoracic aorta. The pulmonary vasculature is noncongested. There is volume loss in the right lung with elevation of the right hemidiaphragm. Scarring/atelectasis is noted at the lung bases. No large pleural effusion or pneumothorax is seen. The skeletal structures are osteopenic. The bony thorax is grossly intact. Soft tissue gas projects over the left chest wall. IMPRESSION: 1. An endotracheal tube has been placed. The tip is not well visualized and projects over the thoracic inlet approximately 8 cm above the mich. 2. Cardiomegaly without radiographic evidence of congestive failure. 3. Soft tissue gas projects over the left chest wall. ACT 112: Negative or not required by law. Electronically signed by: Issac Rebolledo M.D. 01/18/2022 7:10 AM I & O Totals 24 Hours 01/17/22 01/18/22 01/19/22 06:59 06:59 06:59 Intake Total 5034.58 / 5034.58 48.767 / 48.767 Output Total 475 / 475 Balance 4559.58 / 4559.58 48.767 / 48.767 Cumulative 01/17/22 11:33 thru 01/18/22 09:12 Intake Total 5083.347 Output Total 475 Balance 4608.347 RT Ventilator Mngmt (Last Documented) Ventilator Ordered Settings Ventilator Support Mode Assist Control 01/18/22 07:15 Respiratory Rate 20 01/18/22 07:15 Ventilator Tidal Volume 350 01/18/22 07:15 Setting Minute Ventilation 6.9 01/18/22 07:15 Positive End Expiratory 5 01/18/22 07:15 Pressure Fraction of Inspired Oxygen 30 01/18/22 07:15 Machine Comment Titrated down to 30% 01/17/22 22:51 Ventilator - PT Measurements Respiratory Rate 20 Exhaled Tidal Volume 346 Minute Ventilation 6.9 Peak Inspiratory Airway 12 Pressure Plateau Pressure 12.8 Respiratory Cycle Inspiratory: 1:2.3 Expiratory Ratio Inspiratory Phase Time 1.0 End-Tidal CO2 33 Static Lung Compliance 44.36 Dynamic Lung Compliance 49.43 Normal Static Lung Compliance 48.00 Patient Measurements Comment Received patient from OR Coding Level of Care Code Critical Care 1st 30-74 mins Diagnoses Admitted to intensive care unit Z78.9 Abscess or cellulitis of chest wall Endotracheally intubated Z97.8
--- NOTE | 2022-01-18 09:50 | Surgery Progress Note ---
Date of Service January 18, 2022 Assessment & Plan (1) Necrotizing fasciitis: Plan: POD#1 Left Breast and Chest Wall Incision/Drainage and Debridement WBC 13 (20). Vitals are stable and patient not requiring pressors for BP support Continue IV abx. Wound cultures pending Dressing changed this AM, Wound bed is clean with viable appearing tissue, serosangeneous drainage on kerlex. Was repacked w/ wet/dry kerlex No plans for further surgical intervention at this time. Will consult wound care for evaluation and possible consideration of vac Appreciate ICU and hospitalists assistance with patient. Likely plan on extubating today Admission and Anticipated Discharge Date Admission Date: January 17, 2022 Supervising Physician Co-Signing Physician Notes Patient seen and examined, labs and imaging reviewed, agree with above. 81-year-old female POD #1 radical debridement of severe abscess versus necrotizing soft tissue infection. She did well overnight and is not requiring any pressor support. On exam she is afebrile stable vitals. The wound was inspected and there is no extension of cellulitis. The tissue at the bed of the wound appears viable and healthy. Does not appear to require further debridement. White blood cell count 13. Gram stains showing polymicrobial infection. Cultures pending. No plan for surgical intervention today, will reassess tomorrow. Continue broad-spectrum antibiotic therapy, if wound looks good tomorrow we will likely put on wound VAC. Surgery will continue to follow. Subjective Patient on ventilator, unable to obtain subjective history. Opens eyes during dressing change. Review of Systems Review of Systems: intubated, able to open eyes Physical Exam Chest (Breasts): Additional Comments: L chest erythema much improved, wound packing removed, serosang drainage noted, wound bed clean without evidence of ongoing necrotic tissue Results & Data ([facility]) Vital Signs (Past 12 Hours) Vital Signs Temp Pulse Resp BP Pulse Ox 01/18/22 07:15 48 L 20 98 01/18/22 06:00 35.8 C L 46 L 18 101/54 L 96 01/18/22 05:50 35.8 C L 49 L 18 107/53 L 98 01/18/22 05:00 36.7 C 56 L 18 99/54 L 97 01/18/22 04:30 35.8 C L 65 19 127/64 96 01/18/22 04:00 36.3 C L 52 L 18 105/52 L 98 01/18/22 03:44 65 18 100 01/18/22 03:30 35.6 C L 54 L 18 111/58 L 98 01/18/22 03:04 36.5 C 72 18 95/58 L 93 01/18/22 03:00 35.6 C L 48 L 18 84/45 L 97 01/18/22 02:45 35.7 C L 49 L 18 86/44 L 98 01/18/22 02:30 35.7 C L 54 L 18 84/48 L 97 01/18/22 02:15 35.7 C L 49 L 18 88/46 L 98 01/18/22 02:00 35.8 C L 50 L 18 88/52 L 98 01/18/22 01:45 35.8 C L 55 L 18 88/46 L 99 01/18/22 01:30 35.7 C L 53 L 18 107/55 L 100 01/18/22 01:15 35.7 C L 50 L 18 91/51 L 98 01/18/22 01:00 35.7 C L 50 L 18 97/50 L 99 01/18/22 00:45 35.7 C L 59 L 18 122/66 99 01/18/22 00:41 35.8 C L 64 16 102/60 96 01/18/22 00:30 35.8 C L 48 L 18 86/50 L 98 01/18/22 00:18 51 L 01/18/22 00:15 35.9 C L 50 L 18 90/49 L 98 01/18/22 00:00 35.9 C L 47 L 18 90/48 L 98 01/17/22 23:45 36.0 C L 50 L 18 90/49 L 99 01/17/22 23:30 35.9 C L 50 L 18 98/53 L 100 01/17/22 23:15 36.0 C L 57 L 18 109/55 L 99 01/17/22 23:00 36.0 C L 58 L 18 95/49 L 100 01/17/22 22:51 54 L 18 100 01/17/22 22:45 36.0 C L 50 L 18 106/51 L 100 01/17/22 22:30 35.9 C L 53 L 16 124/57 L 100 01/17/22 22:16 16 130/66 01/17/22 22:01 52 L 18 127/58 L 86 L 01/17/22 22:00 51 L 16 94 PG Care Time/CCT Total # of Minutes Spent Total Time Spent with Patient: Total time spent is greater than 50% in coordination of care (as documented) at patient's floor/unit and/or counseling patient: Coding Level of Care Code None Diagnoses Necrotizing fasciitis M72.6
[2022-01-18] MEDS: INSULIN ASPART PER UNIT SC SCH ×2 (12:17→18:36)
[2022-01-18 15:57] LABS: Adenovirus F 40/41 PCR Not Detected (NotDetected); Astrovirus PCR Not Detected (NotDetected); Campylobacter PCR Not Detected (NotDetected); Clostridium diff Toxin A/B PCR Not Detected (NotDetected); Cryptosporidium PCR Not Detected (NotDetected); Cyclospora cayetanensis PCR Not Detected (NotDetected); Entamoeba histolytica PCR Not Detected (NotDetected); Enteroaggregative E.coli(EAEC) Not Detected (NotDetected); Enteropathogenic E.coli (EPEC) Not Detected (NotDetected); Enterotoxigenic E.coli (ETEC) Not Detected (NotDetected); Giardia lamblia PCR Not Detected (NotDetected); Norovirus GI/GII PCR Not Detected (NotDetected); Plesiomonas shigelloides PCR Not Detected (NotDetected); Rotavirus A PCR Not Detected (NotDetected); Salmonella PCR Not Detected (NotDetected); Sapovirus PCR Not Detected (NotDetected); Shiga-like Toxin E.coli (STEC) Not Detected (NotDetected); Shigella/Enteroinvasive E.coli Not Detected (NotDetected); Vibrio cholerae PCR Not Detected (NotDetected); Vibrio species PCR Not Detected (NotDetected); Yersinia enterocolitica PCR Not Detected (NotDetected)
--- NOTE | 2022-01-18 19:01 | XRay Report ---
XR chest 1V portable CLINICAL HISTORY: hypoxia TECHNIQUE: Single frontal radiograph of the chest was obtained. Comparison: Comparison is made to chest radiograph 01/17/2022 FINDINGS: Lines and tubes are stable. Calcified aortic knob is seen. The lungs are clear. No evidence of pleura l effusion or pneumothorax. IMPRESSION: No acute chest disease. ACT 112: Negative or not required by law. Electronically signed by: Ted Armstrong M.D. 01/18/2022 7:00 PM
[2022-01-18] MEDS ORDERED: WARFARIN SOD 5 MG TAB PO ONE (19:30)
--- NOTE | 2022-01-18 20:20 | XRay Report ---
XR KUB/Abdomen 1 view CLINICAL HISTORY: og tube TECHNIQUE: 1 view of the abdomen was obtained. Comparison: None available at the time of this dictation. FINDINGS: Enteric tube side-port and tip lies below the diaphragm, projecting over the gastric bubble. Degenera tive changes and scoliosis are noted. The bowel gas pattern is nonobstructive. A moderate amount of s tool is noted within the large bowel. IMPRESSION: Satisfactory position of enteric tube. ACT 112: Negative or not required by law. Electronically signed by: Ted Armstrong M.D. 01/18/2022 8:19 PM
[2022-01-18 21:27] LABS: A calco-baum cmplx NotReported Not Detected (NotDetected); Bact fragilis Not Reported Not Detected (NotDetected); C auris Not Reported Not Detected (NotDetected); Calbicans Not Reported Not Detected (NotDetected); Candida glabrata Not Reported Not Detected (NotDetected); Candida krusei Not Reported Not Detected (NotDetected); Cneoformans/gatti Not Reported Not Detected (NotDetected); Cparapsilosis Not Reported Not Detected (NotDetected); Ctropicalis Not Reported Not Detected (NotDetected); E cloacae compx Not Reported Not Detected (NotDetected); Efaecalis Not Reported Not Detected (NotDetected); Efaecium Not Reported Not Detected (NotDetected); Enterobacterales Not Reported Not Detected (NotDetected); Escherichia coli Not Reported Not Detected (NotDetected); H influenzae Not Reported Not Detected (NotDetected); K aerogenes Not Reported Not Detected (NotDetected); Koxytoca Not Reported Not Detected (NotDetected); Kpneumoniae grp Not Reported Not Detected (NotDetected); Lmonocyt Not Reported Not Detected (NotDetected); N meningitidis Not Reported Not Detected (NotDetected); P aeruginosa Not Reported Not Detected (NotDetected); Proteus spp Not Reported Not Detected (NotDetected); Salmonella spp Not Reported Not Detected (NotDetected); Smarcescens Not Reported Not Detected (NotDetected); Staph lugdunensis Not Reported Not Detected (NotDetected); Staph spp. Not Reported DETECTED (NotDetected); Staphaureus Not Reported Not Detected (NotDetected); Staphepi Not Reported DETECTED (NotDetected); Staphylococcus spp. DETECTED (NotDetected); Stenmaltophilia Not Reported Not Detected (NotDetected); Strep agal(GrpB) Not Reported Not Detected (NotDetected); Strep pneum Not Reported Not Detected (NotDetected); Strep pyog (GrpA) Not Reported Not Detected (NotDetected); Strep spp Not Reported Not Detected (NotDetected); mecAC Resistant Gene DETECTED (NotDetected)
[2022-01-18 21:43] LABS: Staphylococcus epidermidis DETECTED (NotDetected)
[2022-01-19] MEDS: INSULIN ASPART PER UNIT SC SCH ×4 (01:15→18:26)
[2022-01-19] MEDS: LACTATED RINGER'S 1,000 ML IV SCH ×4 (02:10→22:01)
[2022-01-19] MEDS: LINEZOLID 600 MG/300 ML BAG IV SCH (02:13)
[2022-01-19] MEDS: PIPERACILLIN/TAZOBACTAM 4.5 GM in DEXTROSE 5% 100 ML IV SCH ×3 (03:50→18:26)
[2022-01-19] MEDS: propofoL 1,000 MG/100 ML VIAL IV SCH ×3 (04:05→16:02)
[2022-01-19 04:58] LABS: iSTAT Allen Test Pass; iSTAT Art Bld Gas pCO2 Correct 40 mmHg (35-46); iSTAT Arterial Blood Gas HCO3 25 meg/L (19-24); iSTAT Arterial Blood Gas pCO2 41 mmHg (35-46); iSTAT Arterial Blood Gas pH 7.39 (7.35-7.45); iSTAT Arterial Blood Gas pO2 119 mmHg (80-95); iSTAT Arterial Blood Gas pO2 C 116; iSTAT Carbon Dioxide 26 mmol/L (24-31); iSTAT FiO2 30 %; iSTAT Hematocrit 27 % (37-47); iSTAT Hemoglobin 9.2 g/dl (12.0-16.0); iSTAT Potassium 2.7 mmol/L (3.3-5.0); iSTAT Site R Radial; iSTAT Sodium 137 mmol/L (135-144)
[2022-01-19] MEDS: ACETAMINOPHEN 1,000 MG/100 ML VIAL IV SCH ×3 (06:24→22:17)
[2022-01-19 07:26] LABS: Basophils # (auto) 0.03 K/uL (0-0.2); Basophils % (auto) 0.3 %; Eosinophils # (auto) 0.24 K/uL (0-0.5); Eosinophils % (auto) 2.2 %; Hematocrit (blood only) 28.5 % (37-47); Hemoglobin 9.1 g/dL (12.0-16.0); Immature Granulocytes # (auto) 0.08 K/uL (0.00-0.02); Immature Granulocytes % (auto) 0.7 %; Lymphocytes # (auto) 1.67 K/uL (1.2-3.4); Lymphocytes % (auto) 15.4 %; Mean Corpuscular Hemoglobin 27.6 pg (25-34); Mean Corpuscular Hgb Conc 31.9 g/dL (32-36); Mean Corpuscular Volume 86.4 fL (80-100); Mean Platelet Volume 9.5 fL (7.4-10.4); Monocytes # (auto) 0.86 K/uL (0.11-0.59); Monocytes % (auto) 7.9 %; Neutrophils # (auto) 7.96 K/uL (1.4-6.5); Neutrophils % (auto) 73.5 %; Platelet Count 429 K/uL (130-400); RDW Coefficient of Variation 15.4 % (11.5-14.5); RDW Standard Deviation 49.5 fL (36.4-46.3); White Blood Count 10.84 K/uL (4.8-10.8)
[2022-01-19 07:32] LABS: INR 1.1 (0.9-1.1); Prothrombin Time 11.8 Seconds (9.0-12.0)
[2022-01-19 07:41] LABS: BUN Creatinine Ratio 20.7 (10-20); Creatinine Clr Calc Pharmacy 50.1 ml/min; Est GFR (African American) 66.7 ml/min; Est GFR (Non-African American) 57.6 ml/min; Magnesium 1.7 mg/dl (1.7-2.4); Potassium 2.9 mmol/L (3.5-5.1)
[2022-01-19] MEDS: FAMOTIDINE 20 MG in SYRINGE 3 ML IV SCH ×2 (08:30→20:02)
[2022-01-19] MEDS: CLINDAMYCIN/D5W 900 MG/50 ML BAG IV SCH (08:30)
--- NOTE | 2022-01-19 09:16 | Electrocardiogram Report ---
Test Reason : Blood Pressure : / mmHG Vent. Rate : 046 BPM Atrial Rate : 046 BPM P-R Int : 170 ms QRS Dur : 086 ms QT Int : 510 ms P-R-T Axes : 075 -24 012 degrees QTc Int : 446 ms Sinus bradycardia with sinus arrhythmia Low voltage QRS Poor R wave progression, consider anterior AK vs. lead placement vs. LVH Abnormal ECG When compared with ECG of 17-JAN-2022 13:05, Premature atrial complexes are no longer Present Vent. rate has decreased BY 26 BPM Confirmed by Cj Paredes ([id number]) on 01/19/2022 9:15:28 AM Referred By: [facility] Confirmed By:Cj Paredes
--- NOTE | 2022-01-19 09:41 | Surgery Progress Note ---
Date of Service January 19, 2022 Assessment & Plan (1) Necrotizing fasciitis: Plan: POD#2 Left Breast and Chest Wall Incision/Drainage and Debridement WBC 10 (13). Pt noted to have some bradycardia. Not on pressors for BP support Continue IV abx. Wound is polymicrobial, cultures pending Evaluated wound alongside wound care. no further progression of infection noted. it is okay to place irrigating wound vac Appreciate ICU and hospitalists assistance with patient. Likely plan on extubating today after vac placement [facility] surgery covering the holiday weekend Admission and Anticipated Discharge Date Admission Date: January 17, 2022 Supervising Physician Co-Signing Physician Notes Patient seen and examined, labs and imaging reviewed, agree with above. 81-year-old female POD #2 radical debridement of severe abscess versus necrotizing soft tissue infection. Overall doing well, still intubated. On exam she is afebrile stable vitals. The wound was inspected and there is no extension of cellulitis. The tissue at the bed of the wound appears viable and healthy. Does not appear to require further debridement. White blood cell count 10 (13). Gram stains showing polymicrobial infection. Cultures pending. No plan for further surgical intervention for now. Continue broad-spectrum antibiotic therapy, wound VAC toay. Surgery will continue to follow. Dr. March covering over weekend Subjective Patient on vent, unable to obtain subjective history Physical Exam Physical Exam: on ventilator, opens eyes and turns head towards you Chest (Breasts): Additional Comments: L chest erythema improved. viable tissue in wound bed Results & Data ([facility]) Vital Signs (Past 12 Hours) Vital Signs Temp Pulse Resp BP Pulse Ox 01/19/22 07:14 39 L 19 96 01/19/22 06:01 0 L 16 116/55 L 91 01/19/22 06:00 0 L 18 91 01/19/22 05:00 41 L 18 89/45 L 96 01/19/22 04:35 49 L 18 99 01/19/22 04:30 36.6 C 41 L 18 106/51 L 98 01/19/22 04:21 36.6 C 01/19/22 04:00 18 120/54 L 99 01/19/22 03:30 64 18 121/62 99 01/19/22 03:00 39 L 18 130/61 99 01/19/22 02:30 49 L 18 120/55 L 99 01/19/22 02:00 50 L 18 129/55 L 99 01/19/22 01:33 42 L 01/19/22 01:30 30 L 18 114/55 L 100 01/19/22 01:08 45 L 16 115/54 L 99 01/19/22 01:00 49 L 18 119/56 L 100 01/19/22 00:30 51 L 16 98/55 L 100 01/19/22 00:00 42 L 18 104/48 L 98 01/18/22 23:43 51 L 19 100 01/18/22 23:30 43 L 18 111/57 L 100 01/18/22 23:00 43 L 27 H 111/52 L 99 01/18/22 22:30 45 L 18 117/51 L 100 01/18/22 22:00 49 L 18 108/50 L 100 01/18/22 21:40 36.7 C PG Care Time/CCT Total # of Minutes Spent Total Time Spent with Patient: Total time spent is greater than 50% in coordination of care (as documented) at patient's floor/unit and/or counseling patient: Coding Level of Care Code None Diagnoses Necrotizing fasciitis M72.6
[2022-01-19] MEDS ORDERED: POTASSIUM CHLORIDE CRTAB 20 MEQ TABCR PO STA (09:46)
--- NOTE | 2022-01-19 09:48 | Critical Care Progress Note ---
Date of Service January 19, 2022 Assessment & Plan (1) Admitted to intensive care unit: Plan: Reason Critically Ill: 81-year-old female status post debridement of area of necrotizing soft tissue injury to the LEFT-sided chest wall he remains intubated status post surgical intervention. NEURO - * CAM ICU: Unable to assess * Sedation: Propofol * Pain: Fentanyl * Restart citalopram * Ultram to be restarted at half dose * Restart gabapentin CARDIAC/VASCULAR - * Hypertension, hyperlipidemia: * Hold oral antihypertensives while intubated and sedated. * Continue p.o. home medications when clinically appropriate. * Monitor on telemetry. RESPIRATORY - * On minimal vent settings we will proceed with extubation after wound VAC placement today GI/NUTRITION - * N.p.o. overnight RENAL/LYTES - * No significant electrolyte derangements * Hypokalemia: 40 meq POx1 * Hypomagnesemia: 4 grams - * [place] in place - Strict I&Os. ENDO - * No h/o DM or THyroid Dz * BSGs per unit protocol. ISS --> gtt per unit policy. 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 * Currently covered w/ Linezolid, Zosyn, Clindamycin - D/C clindamycin: does not appear septic -Discontinue Zyvox and transition to vancomycin for less drug-drug interaction * Awaiting culture data prior to de-escalation * Wound cultures pending. LINES/IV ACCESS - * PIVs x3 * ETT * [place] DVT PROPHYLAXIS - * start lovenox prophylaxis * SCDs Patient was discussed in multidisciplinary rounds I have personally spent 40 minutes of critical care time in the direct management of this patient. This is a life/limb threatening event. This includes time spent evaluating patient, direct bedside care, chart review, placing orders, interpretation of diagnostic studies, discussion with consultants, patient, and family members, as well as other required patient management activ ities. This time is exclusive of all separately billable procedures, and teaching time and separate from and in addition to any other critical care service time. (2) Abscess or cellulitis of chest wall: (3) Endotracheally intubated: Admission and Anticipated Discharge Date Admission Date: January 17, 2022 Subjective Wound Vac to be placed today. This was the reason to keep intubated overnight for patient comfort with vac placement and ability to give additional sedatives and analgesics. Physical Exam Physical Exam: General: Sedated. nontoxic. Skin: Warm, dry, Head: Atraumatic Ears, nose, mouth and throat: airway obscured by endotracheal tube Cardiovascular: Normal peripheral perfusion Respiratory: Ventilator settings reviewed Gastrointestinal: Non distended Musculoskeletal: No deformity Results & Data Results & Data ([facility]) Vital Signs (Past 12 Hours) Vital Signs Temp Pulse Resp BP Pulse Ox 01/19/22 07:14 39 L 19 96 01/19/22 06:01 0 L 16 116/55 L 91 01/19/22 06:00 0 L 18 91 01/19/22 05:00 41 L 18 89/45 L 96 01/19/22 04:35 49 L 18 99 01/19/22 04:30 36.6 C 41 L 18 106/51 L 98 01/19/22 04:21 36.6 C 01/19/22 04:00 18 120/54 L 99 01/19/22 03:30 64 18 121/62 99 01/19/22 03:00 39 L 18 130/61 99 01/19/22 02:30 49 L 18 120/55 L 99 01/19/22 02:00 50 L 18 129/55 L 99 01/19/22 01:33 42 L 01/19/22 01:30 30 L 18 114/55 L 100 01/19/22 01:08 45 L 16 115/54 L 99 01/19/22 01:00 49 L 18 119/56 L 100 01/19/22 00:30 51 L 16 98/55 L 100 01/19/22 00:00 42 L 18 104/48 L 98 01/18/22 23:43 51 L 19 100 01/18/22 23:30 43 L 18 111/57 L 100 01/18/22 23:00 43 L 27 H 111/52 L 99 01/18/22 22:30 45 L 18 117/51 L 100 01/18/22 22:00 49 L 18 108/50 L 100 Critical Care Results & Data Vital Signs (Past 12 Hours) Vital Signs Temp Pulse Resp BP Pulse Ox 01/19/22 07:14 39 L 19 96 01/19/22 06:01 0 L 16 116/55 L 91 01/19/22 06:00 0 L 18 91 01/19/22 05:00 41 L 18 89/45 L 96 01/19/22 04:35 49 L 18 99 01/19/22 04:30 36.6 C 41 L 18 106/51 L 98 01/19/22 04:21 36.6 C 01/19/22 04:00 18 120/54 L 99 01/19/22 03:30 64 18 121/62 99 01/19/22 03:00 39 L 18 130/61 99 01/19/22 02:30 49 L 18 120/55 L 99 01/19/22 02:00 50 L 18 129/55 L 99 01/19/22 01:33 42 L 01/19/22 01:30 30 L 18 114/55 L 100 01/19/22 01:08 45 L 16 115/54 L 99 01/19/22 01:00 49 L 18 119/56 L 100 01/19/22 00:30 51 L 16 98/55 L 100 01/19/22 00:00 42 L 18 104/48 L 98 01/18/22 23:43 51 L 19 100 01/18/22 23:30 43 L 18 111/57 L 100 01/18/22 23:00 43 L 27 H 111/52 L 99 01/18/22 22:30 45 L 18 117/51 L 100 01/18/22 22:00 49 L 18 108/50 L 100 Lab & Micro Results (Past 24 Hours) RBC 3.55 M/uL (4.2-5.4) L 01/20/22 WBC 9.25 K/uL (4.8-10.8) 01/20/22 Hgb 9.9 g/dL (12.0-16.0) L 01/20/22 Hct 30.8 % (37-47) L 01/20/22 MCV 86.8 fL (80-100) 01/20/22 MCH 27.9 pg (25-34) 01/20/22 MCHC 32.1 g/dL (32-36) 01/20/22 RDW Standard Deviation 50.0 fL (36.4-46.3) H 01/20/22 RDW Coefficient of Variation 15.6 % (11.5-14.5) H 01/20/22 Plt Count 508 K/uL (130-400) H 01/20/22 MPV 9.8 fL (7.4-10.4) 01/20/22 Neutrophils (%) (Auto) 64.4 % 01/20/22 Lymphocytes (%) (Auto) 21.1 % 01/20/22 Monocytes # (Auto) 0.84 K/uL (0.11-0.59) H 01/20/22 Eosinophils # (Auto) 0.37 K/uL (0-0.5) 01/20/22 Immature Granulocyte % (Auto) 0.9 % 01/20/22 Neutrophils # (Auto) 5.96 K/uL (1.4-6.5) 01/20/22 Lymphocytes # (Auto) 1.95 K/uL (1.2-3.4) 01/20/22 Monocytes # (Auto) 0.84 K/uL (0.11-0.59) H 01/20/22 Eosinophils # (Auto) 0.37 K/uL (0-0.5) 01/20/22 Basophils # (Auto) 0.05 K/uL (0-0.2) 01/20/22 Immature Granulocyte # (Auto) 0.08 K/uL (0.00-0.02) H 01/20/22 Na 140 mmol/L (136-145) 01/20/22 K 3.1 mmol/L (3.5-5.1) L 01/20/22 Cl 108 mmol/L (98-107) H 01/20/22 CO2 24 mmol/L (21-32) 01/20/22 Anion Gap 8 (3-11) 01/20/22 BUN 17 mg/dl (6-23) 01/20/22 Creatinine 0.85 mg/dl (0.6-1.2) 01/20/22 Estimated GFR ( Amer) 73.4 ml/min 01/20/22 Estimated GFR (Non-Af Amer) 63.4 ml/min 01/20/22 BUN/Creatinine Ratio 20.0 (10-20) 01/20/22 Glu 86 mg/dl (70-99(Fasting)) 01/20/22 Ca 7.9 mg/dl (8.5-10.1) L 01/20/22 Mg 2.3 mg/dl (1.7-2.4) 01/20/22 07:29 01/20/22 Calcium Level 7.9 mg/dl (8.5-10.1) L 01/20/22 07:29 01/20/22 Prothromb Time International Ratio 1.2 (0.9-1.1) H 01/20/22 07:29 01/20/22 Microbiology 01/17/22 11:55 Aerobic Blood Culture - Preliminary Blood Coag neg staph not lugdunensis Anaerobic Blood Culture - Preliminary Gram positive cocci clusters 01/17/22 Unknown Gram Stain - Final Chest Aerobic and Anaerobic Culture - Preliminary No growth to date. 01/17/22 11:55 Aerobic Blood Culture - Preliminary Blood No growth in Aerobic bottle after 24 hours. Anaerobic Blood Culture - Preliminary No growth in Anaerobic bottle after 24 hours. 01/17/22 11:59 Gram Stain - Final Chest Deep Wound Culture - Preliminary Pin-point growth present, reincubating. 01/17/22 12:58 Urine Culture - Final Urine,Straight Cath More than three types of organisms present, all high counts. Repeat collection recommended. No further identifications or sensitivities to follow. Diagnostic Findings (Past 24 Hours) Chest X-Ray 01/18/22 18:49 XR chest 1V portable CLINICAL HISTORY: hypoxia TECHNIQUE: Single frontal radiograph of the chest was obtained. Comparison: Comparison is made to chest radiograph 01/17/2022 FINDINGS: Lines and tubes are stable. Calcified aortic knob is seen. The lungs are clear. No evidence of pleural effusion or pneumothorax. IMPRESSION: No acute chest disease. ACT 112: Negative or not required by law. Electronically signed by: Ted Armstrong M.D. 01/18/2022 7:00 PM KUB X-Ray 01/18/22 19:44 XR KUB/Abdomen 1 view CLINICAL HISTORY: og tube TECHNIQUE: 1 view of the abdomen was obtained. Comparison: None available at the time of this dictation. FINDINGS: Enteric tube side-port and tip lies below the diaphragm, projecting over the gastric bubble. Degenerative changes and scoliosis are noted. The bowel gas pattern is nonobstructive. A moderate amount of stool is noted within the large bowel. IMPRESSION: Satisfactory position of enteric tube. ACT 112: Negative or not required by law. Electronically signed by: Ted Armstrong M.D. 01/18/2022 8:19 PM I & O Totals 24 Hours 01/18/22 01/19/22 01/20/22 06:59 06:59 06:59 Intake Total 5034.58 / 5034.58 3557.660 / 3557.660 Output Total 475 / 475 2281 / 2281 300 / 300 Balance 4559.58 / 4559.58 1276.660 / 1276.660 -300 / -300 Cumulative 01/17/22 11:33 thru 01/19/22 08:00 Intake Total 8592.240 Output Total 3056 Balance 5536.240 RT Ventilator Mngmt (Last Documented) Ventilator Ordered Settings Ventilator Support Mode Assist Control 01/19/22 07:14 Respiratory Rate 19 01/19/22 07:14 Ventilator Tidal Volume 350 01/19/22 07:14 Setting Minute Ventilation 6.1 01/19/22 07:14 Positive End Expiratory 5 01/19/22 07:14 Pressure Fraction of Inspired Oxygen 21 01/19/22 07:14 Peak Inspiratory Flow 28 01/19/22 07:14 Machine Comment Titrated down to 30% 01/17/22 22:51 Ventilator - PT Measurements Respiratory Rate 19 Exhaled Tidal Volume 350 Minute Ventilation 6.1 Peak Inspiratory Airway 17 Pressure Plateau Pressure 13.5 Respiratory Cycle Inspiratory: 1:2.3 Expiratory Ratio Inspiratory Phase Time 1.0 End-Tidal CO2 30 Static Lung Compliance 41.18 Dynamic Lung Compliance 29.17 Normal Static Lung Compliance 47.00 Patient Measurements Comment FiO2 turned to 21% per ABG results, Rn made aware. Coding Level of Care Code Critical Care 1st 30-74 mins Diagnoses Admitted to intensive care unit Z78.9 Abscess or cellulitis of chest wall Endotracheally intubated Z97.8
[2022-01-19] MEDS: MAGNESIUM SULFATE / D5W 1 GM/100 ML BAG IV SCH ×4 (10:15→15:49)
[2022-01-19] MEDS: PROPOFOL BOLUS FROM BAG IV PRN ×3 (10:15→11:15)
[2022-01-19] MEDS ORDERED: POTASSIUM CHLORIDE 20 MEQ/15 ML UDC GT STA (10:34)
[2022-01-19] MEDS ORDERED: fentaNYL citrate 100 MCG/2 ML VIAL IV STA (10:45)
[2022-01-19] MEDS ORDERED: VANCOMYCIN CONSULT ACTIVE PRN (10:46)
[2022-01-19] MEDS: ENOXAPARIN INJ 40 MG/0.4 ML SYR SQ SCH (11:39)
[2022-01-19] MEDS ORDERED: GABAPENTIN 250 MG/5 ML 470 ML BTL PO ONE (12:00)
[2022-01-19] MEDS ORDERED: VANCOMYCIN HCL 1,750 MG in SODIUM CHLORIDE 0.9% 500 ML IV ONE (12:45)
--- NOTE | 2022-01-19 13:30 | Hospitalist Progress Note ---
Date of Service January 19, 2022 Assessment & Plan (1) Abscess or cellulitis of chest wall: Plan: Cellulitis of epigastrium with extension to the left breast and chest wall - rapid progression over 2 days [employer] - Concern for NEC FASC- Surgical debridement 01/18/22 - no defined culture results, stop clindamyicin as not septic, continue linezolid and Zosyn, keeping eye on strep epi in cultures, - Blood culture, urine culture, wound culture are pending - Did reverse her INR with Vitamin K 10mg IV now- On admission Patient's son updated over phone. Patient is DNR/DNI but would want supportive care also some full thickness skin irritation to buttock being followed by wound care (2) Sepsis: Plan: Sepsis from chest wall soft tissue infection and possible urine source -> resolved - Source control debridement per surgical services - ABX therapy as above - pending final cultures (3) Catheter-associated urinary tract infection: Plan: Catheter change out - in past grew E. Coli ESBL sensavite to Zosyn- as above transition to Zosyn - ABX as above (4) Esophagitis: Plan: Chronic continue PPI - NPO, will eval swallowing once extubated (5) Paraplegia: Plan: Chronic condition from her MS as per HPI resident of [facility] for this reason, does place skin at risk (6) HLD (hyperlipidemia): Plan: Continue statin when able (7) HTN (hypertension): Plan: Hold Diltiazem at this time (8) Multiple sclerosis: Plan: Hold Copaxone - not on formulary Plan: on lovenox for dvt prevention,previous DVT treatment commented december 2018 was innitially on apixiban Admission and Anticipated Discharge Date Admission Date: January 17, 2022 Subjective Wound Vac to be placed 01/19/22, hopeful for extubation, care to keep from pulling at dressings with baseline mentation Review of Systems Review of Systems: Unobtainable due to cognitive status and Unobtainable due to endotracheal tube Physical Exam Physical Exam: The patient appeared stable, supported and sedated Vital signs as documented. Lungs are clear to auscultation and appear unlabored Cardiac exam, Rhythm is regular.. Abdominal exam reveals normal bowel sounds, soft Extremities are nonedematous and both pedal pulses are normal. Skin exam with large full thickness defect where emergent debridement was undertaken under suspicion of necrotizing fascitiis also with buttock decubitus as documented in wound care assessment as full thickness with structure Results & Data Results & [facility] ([facility]) Vital Signs (Past 12 Hours) Vital Signs Temp Pulse Resp BP Pulse Ox 01/19/22 11:33 53 L 18 91 01/19/22 07:14 39 L 19 96 01/19/22 06:01 0 L 16 116/55 L 91 01/19/22 06:00 0 L 18 91 01/19/22 05:00 41 L 18 89/45 L 96 01/19/22 04:35 49 L 18 99 01/19/22 04:30 97.9 F 41 L 18 106/51 L 98 01/19/22 04:21 97.9 F 01/19/22 04:00 18 120/54 L 99 01/19/22 03:30 64 18 121/62 99 01/19/22 03:00 39 L 18 130/61 99 01/19/22 02:30 49 L 18 120/55 L 99 01/19/22 02:00 50 L 18 129/55 L 99 01/19/22 01:33 42 L 01/19/22 01:30 30 L 18 114/55 L 100 PG Care Time/CCT Total # of Minutes Spent Total Time Spent with Patient: Total time spent is greater than 50% in coordination of care (as documented) at patient's floor/unit and/or counseling patient: Coding Level of Care Code 41396 Subseq Hosp Care Lvl 2 Diagnoses Abscess or cellulitis of chest wall Sepsis A41.9 Sepsis acute organ dysfunction status: unspecified Sepsis type: sepsis due to unspecified organism Catheter-associated urinary tract infection T83.511A; N39.0 Esophagitis K20.9 Paraplegia G82.20 HLD (hyperlipidemia) E78.5 Hyperlipidemia type: unspecified HTN (hypertension) I10 Hypertension type: essential hypertension Multiple sclerosis G35 (1) Sepsis Sepsis acute organ dysfunction status: unspecified Sepsis type: sepsis due to unspecified organism Qualified Code(s): A41.9 - Sepsis, unspecified organism (2) HLD (hyperlipidemia) Hyperlipidemia type: unspecified Qualified Code(s): E78.5 - Hyperlipidemia, unspecified (3) HTN (hypertension) Hypertension type: essential hypertension Qualified Code(s): I10 - Essential (primary) hypertension
--- NOTE | 2022-01-19 13:35 | Pharmacy Report ---
Pharmacy Vanc AUC Short Note - Date of Service January 19, 2022 - Assessment & Plan Assessment * 81 year old F receiving VANCOMYCIN + ZOSYN for treatment of necrotizing chest wall SSTI. Patient is s/p wound debridement. Wound vac applied today. Patient remains intubated. * Pertinent microbiologic data includes: wound cx gram stain showing GPC, GNR and GPR. pin-point growth noted in wound cx. 1 set of BLCXs growing CoN staph (likely MRSE per [employer]). 2nd set of BLCXs no growth to date. * Today will be day #1 VANCOMYCIN, following 1 day of linezolid therapy. Linezolid d/c'd due to possible bacteremia (vs contaminant) and desire to resume home meds with serotoninergic activity. Plan Vancomycin * AUC/PRIYA is the preferred PK/PD target for vancomycin * AUC guided dosing is effective and associated with decreased risk of nephrotoxicity compared to traditional trough targets * Will reload with vancomycin as it has been > 24 hrs since loading dose given on 01/17. Load = 1750mg x 1 (~20mg/kg) * Maint dose: 750mg IV Q 12 hrs is predicted to achieve target AUC/PRIYA of 400- 600 mg/L.hr and may be associated with a 13 % risk of nephrotoxicity * Trough or level ordered for: 01/21/22 (prior to 4th maint dose) Pharmacy will continue to follow and will adjust dose/frequency as necessary. Thank you.
[2022-01-19] MEDS: WARFARIN SOD 5 MG TAB PO SCH (16:00)
[2022-01-19] MEDS: fentaNYL citrate 2,500 MCG/250 ML BAG IV SCH (19:55)
[2022-01-19] MEDS: traMADol HCL 50 MG TABLET PO SCH (20:01)
[2022-01-19] MEDS: GABAPENTIN 250 MG/5 ML 470 ML BTL PO SCH (20:02)
[2022-01-20] MEDS: VANCOMYCIN HCL 750 MG in SODIUM CHLORIDE 0.9% 250 ML IV SCH ×3 (00:40→23:38)
[2022-01-20] MEDS: INSULIN ASPART PER UNIT SC SCH ×4 (00:50→17:26)
[2022-01-20] MEDS: PIPERACILLIN/TAZOBACTAM 4.5 GM in DEXTROSE 5% 100 ML IV SCH ×3 (02:16→17:28)
[2022-01-20] MEDS ORDERED: fentaNYL citrate 100 MCG/2 ML VIAL IV STA (04:37)
[2022-01-20] MEDS ORDERED: fentaNYL citrate 100 MCG/2 ML VIAL ONE (04:43)
[2022-01-20] MEDS: ACETAMINOPHEN 1,000 MG/100 ML VIAL IV SCH ×2 (06:00→13:29)
[2022-01-20] MEDS: LACTATED RINGER'S 1,000 ML IV SCH (06:27)
[2022-01-20 07:48] LABS: INR 1.2 (0.9-1.1); Prothrombin Time 12.2 Seconds (9.0-12.0)
[2022-01-20 07:51] LABS: Basophils # (auto) 0.05 K/uL (0-0.2); Basophils % (auto) 0.5 %; Eosinophils # (auto) 0.37 K/uL (0-0.5); Hematocrit (blood only) 30.8 % (37-47); Hemoglobin 9.9 g/dL (12.0-16.0); Immature Granulocytes # (auto) 0.08 K/uL (0.00-0.02); Immature Granulocytes % (auto) 0.9 %; Lymphocytes # (auto) 1.95 K/uL (1.2-3.4); Lymphocytes % (auto) 21.1 %; Mean Corpuscular Hemoglobin 27.9 pg (25-34); Mean Corpuscular Hgb Conc 32.1 g/dL (32-36); Mean Corpuscular Volume 86.8 fL (80-100); Mean Platelet Volume 9.8 fL (7.4-10.4); Monocytes # (auto) 0.84 K/uL (0.11-0.59); Monocytes % (auto) 9.1 %; Neutrophils # (auto) 5.96 K/uL (1.4-6.5); Neutrophils % (auto) 64.4 %; Platelet Count 508 K/uL (130-400); RDW Coefficient of Variation 15.6 % (11.5-14.5); Red Blood Count 3.55 M/uL (4.2-5.4); White Blood Count 9.25 K/uL (4.8-10.8)
[2022-01-20 07:53] LABS: Calcium 7.9 mg/dl (8.5-10.1); Creatinine Clr Calc Pharmacy 54.8 ml/min; Est GFR (African American) 73.4 ml/min; Est GFR (Non-African American) 63.4 ml/min; Magnesium 2.3 mg/dl (1.7-2.4); Potassium 3.1 mmol/L (3.5-5.1)
[2022-01-20] MEDS: CITALOPRAM 20 MG TAB PO SCH (09:10)
[2022-01-20] MEDS: traMADol HCL 50 MG TABLET PO SCH ×3 (09:10→20:07)
[2022-01-20] MEDS: ENOXAPARIN INJ 40 MG/0.4 ML SYR SQ SCH (09:11)
[2022-01-20] MEDS: FAMOTIDINE 20 MG in SYRINGE 3 ML IV SCH ×2 (09:11→20:05)
[2022-01-20] MEDS: GABAPENTIN 250 MG/5 ML 470 ML BTL PO SCH ×2 (09:11→21:22)
[2022-01-20] MEDS ORDERED: oxyCODONE HCL IR 5 MG TAB (IMMEDIATE RELEASE) PO PRN (09:40)
[2022-01-20] MEDS ORDERED: HYDROmorphone INJ 0.5 MG/0.5 ML SYR IV STA (09:40)
[2022-01-20] MEDS ORDERED: DILTIAZEM HCL 120 MG PO SCH (09:45)
[2022-01-20] MEDS ORDERED: EXT REL PO SCH (09:45)
[2022-01-20] MEDS ORDERED: [UNRECOGNIZED DRUG - OTHER] PO SCH (09:45)
--- NOTE | 2022-01-20 09:49 | Critical Care Progress Note ---
Date of Service January 20, 2022 Assessment & Plan (1) Admitted to intensive care unit: Plan: Reason Critically Ill: 81-year-old female status post debridement of area of necrotizing soft tissue injury to the LEFT-sided chest wall he remains intubated status post surgical intervention. NEURO - * Sedation: Discontinue * Pain: Dilaudid x1 starting oxycodone 10 mg every 6 hours scheduled for 3 days * Ultram at half dose CARDIAC/VASCULAR - * Hypertension, hyperlipidemia: * Restart Cardizem XR * Monitor on telemetry. RESPIRATORY - * Extubated yesterday GI/NUTRITION - * Restart diet: Minced and moist secondary to lack of dentures RENAL/LYTES - * Hypokalemia: Receiving replacement * Hypomagnesemia: Resolved - * [place] in place -discontinue per nursing protocol ENDO - * No h/o DM or THyroid Dz * BSGs per unit protocol. ISS --> per unit policy. 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 * Repeat blood culture ordered today * Culture data of mixed utility -Chest wound growing multiple organisms -Urine culture growing mixed cece: Repeat collection however I suspect this will be a sterile specimen -History of ESBL in urine -Will empirically treat for 10 days with vancomycin and Zosyn unless culture data provides more insight into sensitivities * Currently covered w/ vancomycin, Zosyn, LINES/IV ACCESS - * PIVs x3 * [place] DVT PROPHYLAXIS - * lovenox prophylaxis * Restarting warfarin * SCDs Patient is stable for downgrade out of ICU (2) Abscess or cellulitis of chest wall: (3) Endotracheally intubated: Admission and Anticipated Discharge Date Admission Date: January 17, 2022 Subjective Complains of 8 out of 10 pain at surgical site/wound VAC. Disoriented to place and time oriented to self Physical Exam Physical Exam: General: Alert, oriented to self only nontoxic. Skin: Warm, dry, Head: Atraumatic Ears, nose, mouth and throat: airway patent Cardiovascular: Normal peripheral perfusion Chest: Wound VAC in place appears to be functioning appropriately Respiratory: No respiratory distress, speaks in sentences Gastrointestinal: Non distended Musculoskeletal: No deformity Results & Data Results & Data ([facility]) Vital Signs (Past 12 Hours) Vital Signs Temp Pulse Resp BP Pulse Ox 07/02/22 06:30 48 L 15 118/56 L 95 01/20/22 06:01 66 17 150/69 H 98 01/20/22 06:00 63 18 99 01/20/22 05:30 52 L 17 116/59 L 99 01/20/22 05:00 57 L 15 120/59 L 97 01/20/22 04:30 70 14 143/59 H 88 L 01/20/22 04:00 63 14 120/59 L 98 01/20/22 03:30 50 L 17 120/55 L 98 01/20/22 03:00 45 L 14 99/56 L 98 01/20/22 02:30 53 L 16 114/47 L 97 01/20/22 02:01 59 L 22 123/48 L 97 01/20/22 02:00 62 17 98 01/20/22 01:30 55 L 17 88/73 L 98 01/20/22 01:00 48 L 15 91/60 L 98 01/20/22 00:30 53 L 13 95/47 L 98 01/20/22 00:00 52 L 16 92/44 L 98 01/19/22 23:30 57 L 15 113/45 L 98 01/19/22 23:00 36.9 C 63 20 120/51 L 99 01/19/22 22:41 51 L 01/19/22 22:30 58 L 14 112/48 L 99 01/19/22 22:00 62 23 123/58 L 96 Critical Care Results & Data Vital Signs (Past 12 Hours) Vital Signs Temp Pulse Resp BP Pulse Ox 01/20/22 06:30 48 L 15 118/56 L 95 01/20/22 06:01 66 17 150/69 H 98 01/20/22 06:00 63 18 99 01/20/22 05:30 52 L 17 116/59 L 99 01/20/22 05:00 57 L 15 120/59 L 97 01/20/22 04:30 70 14 143/59 H 88 L 01/20/22 04:00 63 14 120/59 L 98 01/20/22 03:30 50 L 17 120/55 L 98 01/20/22 03:00 45 L 14 99/56 L 98 01/20/22 02:30 53 L 16 114/47 L 97 01/20/22 02:01 59 L 22 123/48 L 97 01/20/22 02:00 62 17 98 01/20/22 01:30 55 L 17 88/73 L 98 01/20/22 01:00 48 L 15 91/60 L 98 01/20/22 00:30 53 L 13 95/47 L 98 01/20/22 00:00 52 L 16 92/44 L 98 01/19/22 23:30 57 L 15 113/45 L 98 01/19/22 23:00 36.9 C 63 20 120/51 L 99 01/19/22 22:41 51 L 01/19/22 22:30 58 L 14 112/48 L 99 01/19/22 22:00 62 23 123/58 L 96 Lab & Micro Results (Past 24 Hours) RBC 3.55 M/uL (4.2-5.4) L 01/20/22 WBC 9.25 K/uL (4.8-10.8) 01/20/22 Hgb 9.9 g/dL (12.0-16.0) L 01/20/22 Hct 30.8 % (37-47) L 01/20/22 MCV 86.8 fL (80-100) 01/20/22 MCH 27.9 pg (25-34) 01/20/22 MCHC 32.1 g/dL (32-36) 01/20/22 RDW Standard Deviation 50.0 fL (36.4-46.3) H 01/20/22 RDW Coefficient of Variation 15.6 % (11.5-14.5) H 01/20/22 Plt Count 508 K/uL (130-400) H 01/20/22 MPV 9.8 fL (7.4-10.4) 01/20/22 Neutrophils (%) (Auto) 64.4 % 01/20/22 Lymphocytes (%) (Auto) 21.1 % 01/20/22 Monocytes # (Auto) 0.84 K/uL (0.11-0.59) H 01/20/22 Eosinophils # (Auto) 0.37 K/uL (0-0.5) 01/20/22 Immature Granulocyte % (Auto) 0.9 % 01/20/22 Neutrophils # (Auto) 5.96 K/uL (1.4-6.5) 01/20/22 Lymphocytes # (Auto) 1.95 K/uL (1.2-3.4) 01/20/22 Monocytes # (Auto) 0.84 K/uL (0.11-0.59) H 01/20/22 Eosinophils # (Auto) 0.37 K/uL (0-0.5) 01/20/22 Basophils # (Auto) 0.05 K/uL (0-0.2) 01/20/22 Immature Granulocyte # (Auto) 0.08 K/uL (0.00-0.02) H 01/20/22 Na 140 mmol/L (136-145) 01/20/22 K 3.1 mmol/L (3.5-5.1) L 01/20/22 Cl 108 mmol/L (98-107) H 01/20/22 CO2 24 mmol/L (21-32) 01/20/22 Anion Gap 8 (3-11) 01/20/22 BUN 17 mg/dl (6-23) 01/20/22 Creatinine 0.85 mg/dl (0.6-1.2) 01/20/22 Estimated GFR ( Amer) 73.4 ml/min 01/20/22 Estimated GFR (Non-Af Amer) 63.4 ml/min 01/20/22 BUN/Creatinine Ratio 20.0 (10-20) 01/20/22 Glu 86 mg/dl (70-99(Fasting)) 01/20/22 Ca 7.9 mg/dl (8.5-10.1) L 01/20/22 Mg 2.3 mg/dl (1.7-2.4) 01/20/22 07:29 01/20/22 Calcium Level 7.9 mg/dl (8.5-10.1) L 01/20/22 07:29 01/20/22 Prothromb Time International Ratio 1.2 (0.9-1.1) H 01/20/22 07:29 01/20/22 Microbiology 01/17/22 11:55 Aerobic Blood Culture - Preliminary Blood No growth in Aerobic bottle after 48 hours. Anaerobic Blood Culture - Preliminary No growth in Anaerobic bottle after 48 hours. 01/17/22 11:55 Aerobic Blood Culture - Preliminary Blood Coag neg staph not lugdunensis Anaerobic Blood Culture - Preliminary Gram positive cocci clusters I & O Totals 24 Hours 01/19/22 01/20/22 01/21/22 06:59 06:59 06:59 Intake Total 3557.660 / 3605.035 5154.989 / 5154.989 Output Total 2281 / 2281 4101 / 4101 Balance 1276.660 / 6547.492 8823.989 / 1053.989 Cumulative 01/17/22 11:33 thru 01/20/22 09:35 Intake Total 58133.229 Output Total 6857 Balance 6890.229 RT Ventilator Mngmt (Last Documented) Ventilator Ordered Settings Ventilator Support Mode CPAP 01/19/22 14:50 Respiratory Rate 15 01/20/22 06:30 Ventilator Tidal Volume 350 01/19/22 14:45 Setting Minute Ventilation 8.3 01/19/22 14:50 Ventilator Positive Pressure 5 01/19/22 14:50 Support Setting Positive End Expiratory 5 01/19/22 14:50 Pressure Fraction of Inspired Oxygen 21 01/19/22 14:50 Peak Inspiratory Flow 28 01/19/22 14:45 Machine Comment Titrated down to 30% 01/17/22 22:51 Ventilator - PT Measurements Respiratory Rate 15 Exhaled Tidal Volume 509 Minute Ventilation 8.3 Peak Inspiratory Airway 10 Pressure Plateau Pressure 16 Respiratory Cycle Inspiratory: 1:2.3 Expiratory Ratio Inspiratory Phase Time 1.56 End-Tidal CO2 35 Static Lung Compliance 56.82 Dynamic Lung Compliance 101.80 Normal Static Lung Compliance 50.00 Patient Measurements Comment vent in room in case patient requires NIV HS, patient remains on 2L NC sats 98%. Coding Level of Care Code 60514 Subseq Hosp Care Lvl 3 Diagnoses Admitted to intensive care unit Z78.9 Abscess or cellulitis of chest wall Endotracheally intubated Z97.8
[2022-01-20] MEDS: POTASSIUM CHLORIDE CRTAB 20 MEQ TABCR PO SCH ×2 (11:37→20:07)
--- NOTE | 2022-01-20 12:13 | Surgery Progress Note ---
Date of Service January 20, 2022 Assessment & Plan (1) Necrotizing fasciitis: Plan: Wound VAC in place. Doing well. No signs of spreading infection. We will continue to follow. Admission and Anticipated Discharge Date Admission Date: January 17, 2022 Subjective Does not appear to be in pain Physical Exam Physical Exam: Wound VAC in place on left chest wall, no further erythema/drainage Results & Data ([facility]) Vital Signs (Past 12 Hours) Vital Signs Temp Pulse Resp BP Pulse Ox 01/20/22 11:35 48 L 01/20/22 11:30 36.9 C 44 L 15 127/52 L 100 01/20/22 11:00 56 L 26 H 142/59 H 100 01/20/22 10:30 51 L 17 135/57 L 98 01/20/22 10:00 52 L 14 143/65 H 93 01/20/22 09:30 46 L 16 143/64 H 94 01/20/22 09:01 49 L 18 148/54 H 92 01/20/22 09:00 54 L 17 93 01/20/22 08:30 57 L 17 135/52 L 92 01/20/22 08:01 61 17 142/62 H 94 01/20/22 08:00 65 19 94 01/20/22 07:30 51 L 18 122/58 L 91 01/20/22 07:00 49 L 16 132/55 L 93 01/20/22 06:45 56 L 15 94 01/20/22 06:30 48 L 15 118/56 L 95 01/20/22 06:01 66 17 150/69 H 98 01/20/22 06:00 63 18 99 01/20/22 05:30 52 L 17 116/59 L 99 01/20/22 05:00 57 L 15 120/59 L 97 01/20/22 04:30 70 14 143/59 H 88 L 01/20/22 04:00 63 14 120/59 L 98 01/20/22 03:30 50 L 17 120/55 L 98 01/20/22 03:00 45 L 14 99/56 L 98 01/20/22 02:30 53 L 16 114/47 L 97 01/20/22 02:01 59 L 22 123/48 L 97 01/20/22 02:00 62 17 98 01/20/22 01:30 55 L 17 88/73 L 98 0702/22 01:00 48 L 15 91/60 L 98 01/20/22 00:30 53 L 13 95/47 L 98
--- NOTE | 2022-01-20 12:37 | Hospitalist Progress Note ---
Date of Service January 20, 2022 Assessment & Plan (1) Abscess or cellulitis of chest wall: Plan: Cellulitis of epigastrium with extension to the left breast and chest wall - rapid progression over 2 days ICT DEVELOPER - Concern for NEC FASC- Surgical debridement 01/18/22 - no defined culture results, stop clindamycin as not septic, now on vancomycin and Zosyn final culture results and sensitivity are pending On admission Patient's son updated over phone. Patient is DNR/DNI but would want supportive care also some full thickness skin irritation to buttock being followed by wound care (2) Sepsis: Plan: Sepsis from chest wall soft tissue infection and possible urine source -> resolved - Source control debridement per surgical services - ABX therapy as above - pending final cultures (3) Catheter-associated urinary tract infection: Plan: Catheter change out - in past grew E. Coli ESBL sensavite to Zosyn- as above transition to Zosyn - ABX as above (4) Esophagitis: Plan: Chronic continue PPI - pt able to janeen po per speech (5) Paraplegia: Plan: Chronic condition from her MS as per HPI resident [facility] for this reason, does place skin at risk (6) HLD (hyperlipidemia): Plan: Continue statin as recovers (7) HTN (hypertension): Plan: Holding Diltiazem at this time (8) Multiple sclerosis: Plan: Hold Copaxone - not on formulary Plan: on lovenox for dvt prevention,previous DVT treatment commented december 2018 was innitially on apixiban, was on coumadin and will return to such Admission and Anticipated Discharge Date Admission Date: January 17, 2022 Subjective Does not appear to be in pain, but upon questioning does have some pain, pt is able to answer in short answers, can move right arm to commands Review of Systems Review of Systems: Mild distress and fatigue does not objectively appear in pain no headache, no visual changes no speech or swallowing issues no chest pressure or palpitations no shortness of breath, cough or wheezes no abdominal pain, nausea or vomiting, diarrhea or constipation no dysuria, hematuria or frequency no focal joint pain or swelling no back pain, CVA tenderness or radicular pain Physical Exam Physical Exam: The patient appeared stable, supported and sedated Vital signs as documented. Lungs are clear to auscultation and appear unlabored Cardiac exam, Rhythm is regular.. Abdominal exam reveals normal bowel sounds, soft Extremities are nonedematous and both pedal pulses are normal. Skin exam with wound VAC placed on the left chest wall, large full thickness defect where emergent debridement was undertaken for significant abscess and fascitiis also with buttock decubitus as documented in wound care assessment as full thickness with structure Results & Data Results & Data ([facility]) Vital Signs (Past 12 Hours) Vital Signs Temp Pulse Resp BP Pulse Ox 01/20/22 11:35 48 L 01/20/22 11:30 98.4 F 44 L 15 127/52 L 100 01/20/22 11:00 56 L 26 H 142/59 H 100 01/20/22 10:30 51 L 17 135/57 L 98 01/20/22 10:00 52 L 14 143/65 H 93 01/20/22 09:30 46 L 16 143/64 H 94 01/20/22 09:01 49 L 18 148/54 H 92 01/20/22 09:00 54 L 17 93 01/20/22 08:30 57 L 17 135/52 L 92 01/20/22 08:01 61 17 142/62 H 94 01/20/22 08:00 65 19 94 01/20/22 07:30 51 L 18 122/58 L 91 01/20/22 07:00 49 L 16 132/55 L 93 01/20/22 06:45 56 L 15 94 01/20/22 06:30 48 L 15 118/56 L 95 01/20/22 06:01 66 17 150/69 H 98 01/20/22 06:00 63 18 99 01/20/22 05:30 52 L 17 116/59 L 99 01/20/22 05:00 57 L 15 120/59 L 97 01/20/22 04:30 70 14 143/59 H 88 L 01/20/22 04:00 63 14 120/59 L 98 01/20/22 03:30 50 L 17 120/55 L 98 01/20/22 03:00 45 L 14 99/56 L 98 01/20/22 02:30 53 L 16 114/47 L 97 01/20/22 02:01 59 L 22 123/48 L 97 01/20/22 02:00 62 17 98 01/20/22 01:30 55 L 17 88/73 L 98 01/20/22 01:00 48 L 15 91/60 L 98 PG Care Time/CCT Total # of Minutes Spent Total Time Spent with Patient: Total time spent is greater than 50% in coordination of care (as documented) at patient's floor/unit and/or counseling patient: Coding Level of Care Code 97899 Subseq Hosp Care Lvl 2 Diagnoses Abscess or cellulitis of chest wall Sepsis A41.9 Sepsis acute organ dysfunction status: unspecified Sepsis type: sepsis due to unspecified organism Catheter-associated urinary tract infection T83.511A; N39.0 Esophagitis K20.9 Paraplegia G82.20 HLD (hyperlipidemia) E78.5 Hyperlipidemia type: unspecified HTN (hypertension) I10 Hypertension type: essential hypertension Multiple sclerosis G35 (1) Sepsis Sepsis acute organ dysfunction status: unspecified Sepsis type: sepsis due to unspecified organism Qualified Code(s): A41.9 - Sepsis, unspecified organism (2) HLD (hyperlipidemia) Hyperlipidemia type: unspecified Qualified Code(s): E78.5 - Hyperlipidemia, unspecified (3) HTN (hypertension) Hypertension type: essential hypertension Qualified Code(s): I10 - Essential (primary) hypertension
[2022-01-20] MEDS: WARFARIN SOD 5 MG TAB PO SCH ×2 (16:06→16:36)
[2022-01-20] MEDS: DEXTROSE 50% 50 ML SYRINGE IV PRN (17:20)
[2022-01-21] MEDS: INSULIN ASPART PER UNIT SC SCH ×4 (01:23→18:58)
[2022-01-21] MEDS: PIPERACILLIN/TAZOBACTAM 4.5 GM in DEXTROSE 5% 100 ML IV SCH ×3 (03:00→17:24)
[2022-01-21 08:31] LABS: INR 1.1 (0.9-1.1)
[2022-01-21] MEDS: FAMOTIDINE 20 MG in SYRINGE 3 ML IV SCH ×2 (08:44→20:23)
[2022-01-21] MEDS: CITALOPRAM 20 MG TAB PO SCH (08:45)
[2022-01-21] MEDS: POTASSIUM CHLORIDE CRTAB 20 MEQ TABCR PO SCH (08:45)
[2022-01-21] MEDS: traMADol HCL 50 MG TABLET PO SCH ×3 (08:52→20:24)
[2022-01-21] MEDS ORDERED: Nursing to Pharmacy Communication SCH (09:00)
--- NOTE | 2022-01-21 09:33 | Pharmacy Report ---
Pharmacy Vanc AUC Short Note - Date of Service January 21, 2022 - Assessment & Plan Assessment 81 year old F receiving VANCOMYCIN + ZOSYN for treatment of necrotizing chest wall SSTI. Patient is s/p wound debridement. * Pertinent microbiologic data includes: Blood cultures (+) MRSE (2/4) and gustavo erobic GPC in 1/. Chest culture (+) anaerobic GPC. * Renal function stable. Day # 3 vancomycin therapy Plan Vancomycin * Random steady state level this AM (~8hr level) was 22.6mcg/mL. Predicted trough - 18.7mcg/mL and AUC 534 mg/L.hr, which is therapeutic. * Continue dose of 750 mg IV every 12 hours. Monitor renal function closely (SCr ordered) with prolonged therapy with zosyn. * Will repeat a level in ~48hr or sooner if clinically indicated. Pharmacy will continue to follow and will adjust dose/frequency as necessary. Thank you. Pharmacy has transitioned to AUC/PRIYA guided dosing for vancomycin. AUC guided dosing is associated with decreased risk of nephrotoxicity compared to traditional trough targets.
[2022-01-21 09:46] LABS: Creatinine Clr Calc Pharmacy 64.5 ml/min; Est GFR (African American) 86.8 ml/min; Est GFR (Non-African American) 74.9 ml/min
[2022-01-21] MEDS: ENOXAPARIN INJ 40 MG/0.4 ML SYR SQ SCH (11:02)
[2022-01-21] MEDS: GABAPENTIN 600 MG TAB PO SCH ×2 (11:02→20:24)
[2022-01-21] MEDS ORDERED: VANCOMYCIN LEVEL ONE (11:30)
[2022-01-21] MEDS: VANCOMYCIN HCL 750 MG in SODIUM CHLORIDE 0.9% 250 ML IV SCH (11:45)
--- NOTE | 2022-01-21 12:50 | Hospitalist Progress Note ---
Date of Service January 21, 2022 Assessment & Plan (1) Abscess or cellulitis of chest wall: Plan: Cellulitis of epigastrium with extension to the left breast and chest wall - rapid progression over 2 days PROCESS [employer] - Concern for NEC FASC- Surgical debridement 01/18/22 - no defined culture results, stop clindamycin as not septic, now on vancomycin and Zosyn final culture results and sensitivity are pending On admission Patient's son confirms DNR/DNI but would want supportive care also some full thickness skin irritation to buttock being followed by wound care pt may need some better pain control with scheduled meds (2) Sepsis: Plan: Sepsis from chest wall soft tissue infection and possible urine source -> resolved - Source control debridement per surgical services - ABX therapy as above - pending final cultures (3) Catheter-associated urinary tract infection: Plan: Catheter change out - in past grew E. Coli ESBL sensavite to Zosyn- as above transition to Zosyn - ABX as above (4) Esophagitis: Plan: Chronic continue PPI - pt able to janeen po per speech (5) Paraplegia: Plan: Chronic condition from her MS as per HPI resident of [facility] for this reason, does place skin at risk (6) HLD (hyperlipidemia): Plan: Continue statin as recovers (7) HTN (hypertension): Plan: Holding Diltiazem at this time (8) Multiple sclerosis: Plan: Hold Copaxone - not on formulary Plan: on lovenox for dvt prevention,previous DVT treatment commented december 2018 was innitially on apixiban, was on coumadin and will return to such Admission and Anticipated Discharge Date Admission Date: January 17, 2022 Subjective Pt is pleasantly confused but does not like to be repositioned,states does have some chest wall pain, poor po intake but will take boost supplements Review of Systems Review of Systems: Mild distress and fatigue no headache, no visual changes no speech or swallowing issues no chest pressure or palpitations no shortness of breath, cough or wheezes no abdominal pain, nausea or vomiting, diarrhea or constipation no dysuria, hematuria or frequency no focal joint pain or swelling no back pain, CVA tenderness or radicular pain Physical Exam Physical Exam: The patient appeared stable, supported and sedated Vital signs as documented. Lungs are clear to auscultation and appear unlabored Cardiac exam, Rhythm is regular.. Abdominal exam reveals normal bowel sounds, soft Extremities are nonedematous and both pedal pulses are normal. Skin exam with wound VAC placed on the left chest wall, large full thickness defect where emergent debridement was undertaken for significant abscess and fascitiis also with buttock decubitus as documented in wound care assessment as full thickness with structure Results & Data Results & Data ([facility]) Vital Signs (Past 12 Hours) Vital Signs Temp Pulse Pulse Resp BP Pulse Ox 01/21/22 11:39 98.8 F 56 L 18 157/69 H 100 01/21/22 07:40 46 L 01/21/22 07:29 98.1 F 59 L 19 147/69 H 94 01/21/22 03:00 98.4 F 51 L 16 135/76 99 PG Care Time/CCT Total # of Minutes Spent Total Time Spent with Patient: Total time spent is greater than 50% in coordination of care (as documented) at patient's floor/unit and/or counseling patient: Coding Level of Care Code 33718 Subseq Hosp Care Lvl 2 Diagnoses Abscess or cellulitis of chest wall Sepsis A41.9 Sepsis acute organ dysfunction status: unspecified Sepsis type: sepsis due to unspecified organism Catheter-associated urinary tract infection T83.511A; N39.0 Esophagitis K20.9 Paraplegia G82.20 HLD (hyperlipidemia) E78.5 Hyperlipidemia type: unspecified HTN (hypertension) I10 Hypertension type: essential hypertension Multiple sclerosis G35 (1) Sepsis Sepsis acute organ dysfunction status: unspecified Sepsis type: sepsis due to unspecified organism Qualified Code(s): A41.9 - Sepsis, unspecified organism (2) HLD (hyperlipidemia) Hyperlipidemia type: unspecified Qualified Code(s): E78.5 - Hyperlipidemia, unspecified (3) HTN (hypertension) Hypertension type: essential hypertension Qualified Code(s): I10 - Essential (primary) hypertension
[2022-01-22] MEDS: VANCOMYCIN HCL 750 MG in SODIUM CHLORIDE 0.9% 250 ML IV SCH ×3 (00:50→23:31)
[2022-01-22] MEDS: INSULIN ASPART PER UNIT SC SCH ×3 (00:50→12:15)
[2022-01-22] MEDS: PIPERACILLIN/TAZOBACTAM 4.5 GM in DEXTROSE 5% 100 ML IV SCH ×3 (02:02→17:54)
[2022-01-22 07:52] LABS: INR 1.1 (0.9-1.1); Prothrombin Time 11.9 Seconds (9.0-12.0)
[2022-01-22 08:11] LABS: Creatinine Clr Calc Pharmacy 72.5 ml/min; Est GFR (African American) 94.7 ml/min; Est GFR (Non-African American) 81.7 ml/min
[2022-01-22] MEDS: traMADol HCL 50 MG TABLET PO SCH ×3 (10:45→20:08)
[2022-01-22] MEDS: FAMOTIDINE 20 MG in SYRINGE 3 ML IV SCH ×2 (10:45→20:07)
[2022-01-22] MEDS: GABAPENTIN 600 MG TAB PO SCH ×2 (10:45→20:50)
[2022-01-22] MEDS: CITALOPRAM 20 MG TAB PO SCH (10:45)
[2022-01-22] MEDS: ENOXAPARIN INJ 40 MG/0.4 ML SYR SQ SCH (10:46)
--- NOTE | 2022-01-22 11:10 | Surgery Progress Note ---
Date of Service January 22, 2022 Assessment & Plan (1) Necrotizing fasciitis: Plan: Wound VAC in place. Doing well. No signs of spreading infection. We will continue to follow. Admission and Anticipated Discharge Date Admission Date: January 17, 2022 Supervising Physician Co-Signing Physician Notes Patient seen and examined, labs and imaging reviewed, agree with above. 81-year-old female POD #2 radical debridement of severe abscess versus necrotizing soft tissue infection. Overall doing well, still intubated. On exam she is afebrile stable vitals. The wound was inspected and there is no extension of cellulitis. The tissue at the bed of the wound appears viable and healthy. Does not appear to require further debridement. White blood cell count 10 (13). Gram stains showing polymicrobial infection. Cultures pending. No plan for further surgical intervention for now. Continue broad-spectrum antibiotic therapy, wound VAC toay. Surgery will continue to follow. Dr. March covering over weekend Subjective Pt is pleasantly confused but does not like to be repositioned,states does have some chest wall pain, poor po intake but will take boost supplements 01/22/2022 11:09AM, Dr. Turner F/u S/P Left Breast Incision and Drainage. Wound VAC in place. Doing well. No signs of spreading infection.no fever, Physical Exam Constitutional: awake Eyes: PERRL, conjunctivae normal, anicteric sclerae Neck: trachea midline, no thyromegaly Respiratory: normal respiratory effort, lungs clear to auscultation Cardiovascular: RRR, no murmur, no edema Chest (Breasts): Additional Comments: Wound VAC in place. Doing well. No signs of spreading infection. Results & Data ([facility]) Vital Signs (Past 12 Hours) Vital Signs Temp Pulse Pulse Resp BP Pulse Ox 01/22/22 08:03 37.0 C 90 18 106/65 95 01/22/22 03:44 36.7 C 67 15 150/82 H 96 01/22/22 00:41 64 01/22/22 00:40 37 C 59 L 20 136/75 99
[2022-01-22] MEDS ORDERED: CARBOHYDRATES FOR HYPOGLYCEMIA PO PRN (12:15)
[2022-01-22] MEDS: DEXTROSE 50% 50 ML SYRINGE IV PRN ×2 (12:24→17:06)
--- NOTE | 2022-01-22 15:17 | Hospitalist Progress Note ---
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 NEC FASC- Surgical debridement 01/18/22 - Peptoniphilius asaccharolyticus, disucssed with pharmacy, now on vancomycin and Zosyn On admission Patient's son confirms DNR/DNI but would want supportive care also some full thickness skin irritation to buttock being followed by wound care pt may need some better pain control with scheduled meds (2) Sepsis: Plan: Sepsis from chest wall soft tissue infection and possible urine source -> resolved - Source control debridement per surgical services - ABX therapy as above - pending final cultures (3) Catheter-associated urinary tract infection: Plan: Catheter change out - in past grew E. Coli ESBL sensavite to Zosyn- as above transition to Zosyn - ABX as above (4) Hypoglycemia: Plan: pt with recurrent hypoglycemia, will check A1C and stop insulin ssi, if low will send out reference labs and CT abdomen and pelvis 01/17 has moderately atrophic pancrease (5) Esophagitis: Plan: Chronic continue PPI - pt able to take po per speech (6) Paraplegia: Plan: Chronic condition from her MS as per HPI [facility] for this reason, does place skin at risk (7) HLD (hyperlipidemia): Plan: Continue statin as recovers (8) HTN (hypertension): Plan: Holding Diltiazem at this time (9) Multiple sclerosis: Plan: Hold Copaxone - not on formulary Plan: on lovenox for dvt prevention,previous DVT treatment commented december 2018 was innitially on apixiban, was on coumadin but pt refuses to take Admission and Anticipated Discharge Date Admission Date: January 17, 2022 Subjective Pt is pleasantly confused but does not like to be repositioned,states does have some chest wall pain, poor po intake but will take boost supplements has recurrent hypoglycemia rescued by glucose, will check A1c, hypoglycemic work up is reference will send if A1C is low, stop all insulin Review of Systems Review of Systems: Mild distress and fatigue no headache, no visual changes no speech or swallowing issues no chest pressure or palpitations no shortness of breath, cough or wheezes no abdominal pain, nausea or vomiting, diarrhea or constipation no dysuria, hematuria or frequency no focal joint pain or swelling no back pain, CVA tenderness or radicular pain Physical Exam Physical Exam: The patient appeared stable, supported and sedated Vital signs as documented. Lungs are clear to auscultation and appear unlabored Cardiac exam, Rhythm is regular.. Abdominal exam reveals normal bowel sounds, soft Extremities are nonedematous and both pedal pulses are normal. Skin exam with wound VAC placed on the left chest wall, large full thickness defect where emergent debridement was undertaken for significant abscess and fascitiis also with buttock decubitus as documented in wound care assessment as full thickness with structure Results & Data Results & Data ([facility]) Vital Signs (Past 12 Hours) Vital Signs Temp Pulse Resp BP Pulse Ox 01/22/22 12:39 98.2 F 99 H 18 168/78 H 96 01/22/22 08:03 98.6 F 90 18 106/65 95 01/22/22 03:44 98.1 F 67 15 150/82 H 96 PG Care Time/CCT Total # of Minutes Spent Total Time Spent with Patient: Total time spent is greater than 50% in coordination of care (as documented) at patient's floor/unit and/or counseling patient: Coding Level of Care Code 34169 Subseq Hosp Care Lvl 3 Diagnoses Abscess or cellulitis of chest wall Sepsis A41.9 Sepsis acute organ dysfunction status: unspecified Sepsis type: sepsis due to unspecified organism Catheter-associated urinary tract infection T83.511A; N39.0 Esophagitis K20.9 Paraplegia G82.20 HLD (hyperlipidemia) E78.5 Hyperlipidemia type: unspecified HTN (hypertension) I10 Hypertension type: essential hypertension Multiple sclerosis G35 Hypoglycemia E16.2 (1) Sepsis Sepsis acute organ dysfunction status: unspecified Sepsis type: sepsis due to unspecified organism Qualified Code(s): A41.9 - Sepsis, unspecified organism (2) HLD (hyperlipidemia) Hyperlipidemia type: unspecified Qualified Code(s): E78.5 - Hyperlipidemia, unspecified (3) HTN (hypertension) Hypertension type: essential hypertension Qualified Code(s): I10 - Essential (primary) hypertension
[2022-01-22] MEDS: DEXTROSE 5% 1,000 ML IV SCH (17:13)
[2022-01-23] MEDS: PIPERACILLIN/TAZOBACTAM 4.5 GM in DEXTROSE 5% 100 ML IV SCH ×3 (02:26→18:14)
[2022-01-23 06:46] LABS: Estimated Average Glucose 128 mg/dl; Hemoglobin A1C 6.1 % (4.5-5.6)
[2022-01-23 07:06] LABS: Creatinine Clr Calc Pharmacy 66.4 ml/min; Est GFR (African American) 89.8 ml/min; Est GFR (Non-African American) 77.4 ml/min
[2022-01-23] MEDS: traMADol HCL 50 MG TABLET PO SCH ×3 (08:17→20:34)
[2022-01-23] MEDS: GABAPENTIN 600 MG TAB PO SCH ×2 (08:17→20:34)
[2022-01-23] MEDS: CITALOPRAM 20 MG TAB PO SCH (08:26)
[2022-01-23] MEDS: FAMOTIDINE 20 MG in SYRINGE 3 ML IV SCH ×2 (09:16→20:34)
--- NOTE | 2022-01-23 11:26 | Surgery Progress Note ---
Date of Service January 23, 2022 Assessment & Plan (1) Necrotizing fasciitis: Plan: POD#6 Left Breast and Chest Wall Incision/Drainage and Debridement remains on Zosyn/Vanc continue to monitor until next vac change Admission and Anticipated Discharge Date Admission Date: January 17, 2022 Subjective present for removal of wound vac, no new issues over the weekend Physical Exam Chest (Breasts): Additional Comments: wound clean, all tissue appears viable, serosang drainage in canister Results & Data ([facility]) Vital Signs (Past 12 Hours) Vital Signs Temp Pulse Pulse Resp BP Pulse Ox 01/23/22 07:51 59 L 01/23/22 07:45 36.8 C 65 19 149/65 H 100 01/23/22 02:49 37 C 65 18 150/72 H 97 PG Care Time/CCT Total # of Minutes Spent Total Time Spent with Patient: Total time spent is greater than 50% in coordination of care (as documented) at patient's floor/unit and/or counseling patient: Coding Level of Care Code None Diagnoses Necrotizing fasciitis M72.6
[2022-01-23] MEDS: ENOXAPARIN INJ 40 MG/0.4 ML SYR SQ SCH (11:49)
[2022-01-23] MEDS: VANCOMYCIN HCL 750 MG in SODIUM CHLORIDE 0.9% 250 ML IV SCH (14:12)
[2022-01-23] MEDS: DEXTROSE 5% 1,000 ML IV SCH (14:12)
[2022-01-23] MEDS ORDERED: Nursing to Pharmacy Communication SCH (16:15)
[2022-01-24] MEDS: VANCOMYCIN HCL 750 MG in SODIUM CHLORIDE 0.9% 250 ML IV SCH ×3 (00:34→23:54)
[2022-01-24] MEDS: DEXTROSE 5% 1,000 ML IV SCH ×2 (01:47→14:17)
[2022-01-24] MEDS: PIPERACILLIN/TAZOBACTAM 4.5 GM in DEXTROSE 5% 100 ML IV SCH ×3 (01:47→17:35)
[2022-01-24] MEDS: CITALOPRAM 20 MG TAB PO SCH (08:50)
[2022-01-24] MEDS: traMADol HCL 50 MG TABLET PO SCH ×3 (08:50→21:49)
[2022-01-24] MEDS: GABAPENTIN 600 MG TAB PO SCH ×2 (08:50→21:48)
[2022-01-24] MEDS: FAMOTIDINE 20 MG in SYRINGE 3 ML IV SCH ×2 (08:50→22:17)
[2022-01-24 08:58] LABS: Creatinine Clr Calc Pharmacy 68.5 ml/min; Est GFR (African American) 91.3 ml/min; Est GFR (Non-African American) 78.8 ml/min
[2022-01-24] MEDS: ENOXAPARIN INJ 40 MG/0.4 ML SYR SQ SCH (11:40)
--- NOTE | 2022-01-24 12:52 | Surgery Progress Note ---
Date of Service January 24, 2022 Assessment & Plan (1) Necrotizing fasciitis: Plan: s/p radical debridement left chest NSTI. path showed severe abscess with necrosis, cultures polymicrobial. continue wound vac, care per wound care nurse continue abx surgery will sign off, call with questions or concerns f/u in wound care clinic as outpatient Admission and Anticipated Discharge Date Admission Date: January 17, 2022 Subjective 81 y/o female status post radical debridement NSTI left chest. Doing well, cultures polymicrobial. Wound vac change yesterday. Physical Exam Constitutional: WD/WN, vitals as above Skin: no rashes, warm and dry + wound (vac in place) Results & Data ([facility]) Vital Signs (Past 12 Hours) Vital Signs Temp Pulse Resp BP Pulse Ox 01/24/22 11:19 36.8 C 102 H 17 162/88 H 93 01/24/22 07:41 36.7 C 71 18 163/77 H 90 PG Care Time/CCT Total # of Minutes Spent Total Time Spent with Patient: Total time spent is greater than 50% in coordination of care (as documented) at patient's floor/unit and/or counseling patient: Coding Level of Care Code None Diagnoses Necrotizing fasciitis M72.6
--- NOTE | 2022-01-24 13:07 | Pharmacy Report ---
Pharmacy PK ABX Note - Date of Service January 24, 2022 - Assessment and Plan Assessment 81 year old F receiving VANCOMYCIN + ZOSYN for treatment of necrotizing chest wall SSTI. Patient is s/p wound debridement. * Pertinent microbiologic data includes: 01/17 Blood cultures (+) MRSE (2/4) and Peptoniphilus asaccharolyticus, chest cultures growing Peptoniphilus asaccharolyticus, Finegoldia magna, and Bacteroides uniformis. Zosyn likely to cover organisms growing in chest cultures. * Renal function remains stable Day #7 of antibiotics Plan Vancomycin * Current regimen: 750 mg IV every 12 hours * Random level obtained 01/24/22 resulted as 18.9 mcg/mL. This is predicted to achieve target AUC/PRIYA of 400-600 mg/L.hr * Predicted AUC at steady state: 455 mg/L.hr * Continue 750 mg IV q12h * Will repeat level in the next 48-72 hours if therapy is continued and/or change in patient clinical status * Low threshold to consider more aggressive vancomycin regimen if patient condition were to worsen Zosyn * 4.5 g IV q8h - appropriate Pharmacy will continue to follow and will adjust dose/frequency as necessary. Thank you. Pharmacy has transitioned to AUC monitoring for vancomycin. AUC/PRIYA is the preferred PK/PD target and is associated with decreased risk of nephrotoxicity compared to traditional trough targets.
--- NOTE | 2022-01-24 16:16 | Hospitalist Progress Note ---
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 Continue Vanco for JOB DEVELOPMENT SPECIALIST (epidermidis w/ Methicillin resistance), ID consulted for antibiotic narrowing options Anticipate 14-day course of treatment Initial Blood cultures + JOB DEVELOPMENT SPECIALIST. No murmur. No persistent fever/+BC, -Repeat blood cultures 01/20 NGTD - On admission Patient's son confirms DNR/DNI but would want supportive care -also some full thickness skin irritation to buttock being followed by wound care - Pain adequately controlled 01/24 Continue wound VAC, will have follow-up in wound care as outpatient, surgery signed off (2) Sepsis: Plan: Sepsis from chest wall soft tissue infection and possible urine source -> resolved - Source control debridement per surgical services - ABX therapy as above (3) Catheter-associated urinary tract infection: Plan: Catheter change out - in past grew E. Coli ESBL sensavite to Zosyn, on zosyn as above - UC here multiple growth 01/17, repeat 01/20 ng - ABX as above (4) Hypoglycemia: Plan: pt with recurrent hypoglycemia, will check A1C and stop insulin ssi, if low will send out reference labs and CT abdomen and pelvis 01/17 has moderately atrophic pancrease (5) Esophagitis: Plan: Chronic continue PPI - pt able to take po per speech (6) Paraplegia: Plan: Chronic condition from her MS as per HPI resident of [facility] for this reason, does place skin at risk (7) HLD (hyperlipidemia): Plan: Continue statin as recovers (8) HTN (hypertension): Plan: Holding Diltiazem at this time (9) Multiple sclerosis: Plan: Hold Copaxone - not on formulary Plan: on lovenox for dvt prevention,previous DVT treatment commented december 2018 was innitially on apixiban, was on coumadin but pt refuses to take Admission and Anticipated Discharge Date Admission Date: January 17, 2022 Subjective Seen at bedside, somnolent but awakens easily before going back to sleep. Denies pain including on abdomen. Denies chest pain, chest pressure, lightheadedness, dizziness, fever, chills. Is oriented to hospital and name, unsure of the year. Review of Systems Review of Systems: All systems reviewed & are unremarkable except as noted in Subjective Physical Exam Physical Exam: General: A&O to building in name. Somnolent. NAD. Cooperative. Skin: Lower chest wall with wound VAC in place, no surrounding erythema, no airleak. Decubitus ulcer present, see wound photo HEENT: Atraumatic, normocephalic. Pulm: Moderate air movement, no overt wheezes/rales symmetrical chest rise. No increase in work of breathing. No respiratory distress. Cardiac: RRR, -mrg. Radial pulses intact and symmetrical. Abdominal: Nontender, nondistended, soft. BS present. Extremities: paraplegic at baseline 2/2 MS Results & Data Results & Data ([facility]) Vital Signs (Past 12 Hours) Vital Signs Temp Pulse Resp BP BP Pulse Ox 01/24/22 15:47 36.8 C 69 16 169/74 H 93 01/24/22 11:19 36.8 C 102 H 17 162/88 H 93 01/24/22 07:41 36.7 C 71 18 163/77 H 90 PG Care Time/CCT Total # of Minutes Spent Total Time Spent with Patient: Total time spent is greater than 50% in coordination of care (as documented) at patient's floor/unit and/or counseling patient: Coding Level of Care Code 71921 Subseq Hosp Care Lvl 3 Diagnoses Abscess or cellulitis of chest wall Sepsis A41.9 Sepsis acute organ dysfunction status: unspecified Sepsis type: sepsis due to unspecified organism Catheter-associated urinary tract infection T83.511A; N39.0 Hypoglycemia E16.2 Esophagitis K20.9 Paraplegia G82.20 HLD (hyperlipidemia) E78.5 Hyperlipidemia type: unspecified HTN (hypertension) I10 Hypertension type: essential hypertension Multiple sclerosis G35 (1) Sepsis Sepsis acute organ dysfunction status: unspecified Sepsis type: sepsis due to unspecified organism Qualified Code(s): A41.9 - Sepsis, unspecified organism (2) HLD (hyperlipidemia) Hyperlipidemia type: unspecified Qualified Code(s): E78.5 - Hyperlipidemia, unspecified (3) HTN (hypertension) Hypertension type: essential hypertension Qualified Code(s): I10 - Essential (primary) hypertension
[2022-01-24] MEDS ORDERED: VANCOMYCIN HCL 1,000 MG in SODIUM CHLORIDE 0.9% 250 ML IV SCH (21:00)
[2022-01-25] MEDS: DEXTROSE 5% 1,000 ML IV SCH ×2 (03:48→15:52)
[2022-01-25] MEDS: GABAPENTIN 600 MG TAB PO SCH ×3 (08:00→20:41)
[2022-01-25] MEDS: FAMOTIDINE 20 MG in SYRINGE 3 ML IV SCH (08:03)
[2022-01-25] MEDS: traMADol HCL 50 MG TABLET PO SCH ×4 (08:03→20:38)
[2022-01-25] MEDS: CITALOPRAM 20 MG TAB PO SCH (08:03)
[2022-01-25 08:20] LABS: BUN Creatinine Ratio 10.6 (10-20); Calcium 8.6 mg/dl (8.5-10.1); Creatinine Clr Calc Pharmacy 74.1 ml/min; Est GFR (African American) 94.7 ml/min; Est GFR (Non-African American) 81.7 ml/min; Potassium 3.4 mmol/L (3.5-5.1)
[2022-01-25] MEDS: PIPERACILLIN/TAZOBACTAM 4.5 GM in DEXTROSE 5% 100 ML IV SCH ×2 (08:26→16:47)
[2022-01-25] MEDS: POTASSIUM CHLORIDE CRTAB 20 MEQ TABCR PO SCH ×4 (08:47→20:41)
[2022-01-25 08:48] LABS: Hematocrit (blood only) 34.6 % (34.1-44.9); Hemoglobin 10.3 g/dl (12.0-16.0); Mean Corpuscular Hemoglobin 27.5 pg (25.0-34.0); Mean Corpuscular Hgb Conc 29.8 g/dL (32.0-36.0); Mean Corpuscular Volume 92.5 fL (80.0-100.0); Mean Platelet Volume 9.8 fL (9.4-12.3); Platelet Count 482 K/uL (130-400); RDW Coefficient of Variation 16.2 % (11.5-14.5); RDW Standard Deviation 51.5 fL (36.4-46.3); Red Blood Count 3.74 M/uL (3.93-5.22)
[2022-01-25 08:49] LABS: Basophils # (auto) 0.06 K/uL (0-0.2); Basophils % (auto) 0.6 %; Eosinophils # (auto) 0.63 K/uL (0-0.50); Eosinophils % (auto) 5.9 %; Immature Granulocytes # (auto) 0.26 K/uL (0.00-0.02); Immature Granulocytes % (auto) 2.5 %; Lymphocytes # (auto) 2.54 K/uL (1.2-3.4); Monocytes # (auto) 0.86 K/uL (0.24-0.82); Monocytes % (auto) 8.1 %; Neutrophils # (auto) 6.25 K/uL (1.4-6.5); Neutrophils % (auto) 58.9 %
[2022-01-25] MEDS: VANCOMYCIN HCL 750 MG in SODIUM CHLORIDE 0.9% 250 ML IV SCH (11:33)
[2022-01-25] MEDS: ENOXAPARIN INJ 40 MG/0.4 ML SYR SQ SCH (11:33)
--- NOTE | 2022-01-25 14:40 | Hospitalist Progress Note ---
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 Appreciate recommendations. Initial Blood cultures + SOLE CONFORMING MACHINE OPERATOR +Anaerobe. No murmur. No persistent fever /negative surveillance BC - Repeat blood cultures 01/20 NG, final -also some full thickness skin irritation to buttock being followed by wound care - Pain adequately controlled 01/24-01/25 Continue wound VAC, will have follow-up in wound care as outpatient, surgery signed off 01/24 - Abx narrowed 01/25 to Unasyn. Abx 6 week course with Unasyn 3g q6h. (Stop date 02/28/22). CBC/CMP weekly, CRP biweekly. - Hemodynamically stable with negative surveillance cx and improved labs. If remains afebrile and stable with abx narrowing may progress to outpt tx to complete course Continued wound care and wound VAC management (2) Sepsis: Plan: Sepsis from chest wall soft tissue infection and possible urine source -> r esolved - s/p debridgement for source control - ABX therapy as above (3) Catheter-associated urinary tract infection: Plan: Catheter change out - in past grew E. Coli ESBL sensavite to Zosyn, on zosyn as above - UC here multiple growth 01/17, repeat 01/20 ng - ABX as above (4) Hypoglycemia: Plan: pt with recurrent hypoglycemia CT abdomen and pelvis 01/17 has moderately atrophic pancrease A1C 6.1% BSG low 100s, adequate since d/c SSI, continue to follow (5) Esophagitis: Plan: Chronic continue PPI - pt able to take po per speech (6) Paraplegia: Plan: Chronic condition from her MS as per HPI resident of [facility] for this reason, does place skin at risk (7) HLD (hyperlipidemia): Plan: Continue statin as recovers (8) HTN (hypertension): Plan: Holding Diltiazem at this time (9) Multiple sclerosis: Plan: Hold Copaxone - not on formulary Plan: on lovenox for dvt prevention,previous DVT treatment commented december 2018 was innitially on apixiban, was on coumadin but pt refuses to take - On admission Patient's son confirms DNR/DNI but would want supportive care Admission and Anticipated Discharge Date Admission Date: January 17, 2022 Subjective Seen at bedside, somnolent but arouses easily. Endorses some discomfort around her wound VAC. Denies other symptoms. Has not yet seen ID at time of bedside visit. No chest pain, chest pressure, lightheadedness, dizziness, new symptoms. Denies fever overnight. Review of Systems Review of Systems: All systems reviewed & are unremarkable except as noted in Subjective Physical Exam Physical Exam: General: A&O to building in name. Somnolent. NAD. Cooperative. Skin: Lower chest wall with wound VAC in place, no surrounding erythema, no airleak. Decubitus ulcer present HEENT: Atraumatic, normocephalic. Pulm: Moderate air movement, no overt wheezes/rales symmetrical chest rise. No increase in work of breathing. No respiratory distress. Cardiac: RRR, -mrg. Radial pulses intact and symmetrical. Abdominal: Nontender, nondistended, soft. BS present. Extremities: paraplegic at baseline 2/2 MS Results & Data Results & Data ([facility]) Vital Signs (Past 12 Hours) Vital Signs Temp Pulse Pulse Resp BP Pulse Ox 01/25/22 11:00 36.7 C 66 22 137/66 92 01/25/22 09:00 60 01/25/22 07:03 36.8 C 64 17 167/74 H 98 01/25/22 03:06 36.5 C 75 17 160/77 H 98 PG Care Time/CCT Total # of Minutes Spent Total Time Spent with Patient: Total time spent is greater than 50% in coordination of care (as documented) at patient's floor/unit and/or counseling patient: Coding Level of Care Code 14866 Subseq Hosp Care Lvl 2 Diagnoses Abscess or cellulitis of chest wall Sepsis A41.9 Sepsis acute organ dysfunction status: unspecified Sepsis type: sepsis due to unspecified organism Catheter-associated urinary tract infection T83.511A; N39.0 Hypoglycemia E16.2 Esophagitis K20.9 Paraplegia G82.20 HLD (hyperlipidemia) E78.5 Hyperlipidemia type: unspecified HTN (hypertension) I10 Hypertension type: essential hypertension Multiple sclerosis G35 (1) HLD (hyperlipidemia) Hyperlipidemia type: unspecified Qualified Code(s): E78.5 - Hyperlipidemia, unspecified (2) Sepsis Sepsis acute organ dysfunction status: unspecified Sepsis type: sepsis due to unspecified organism Qualified Code(s): A41.9 - Sepsis, unspecified organism (3) HTN (hypertension) Hypertension type: essential hypertension Qualified Code(s): I10 - Essential (primary) hypertension
[2022-01-25] MEDS: AMPICILLIN/SULBACTAM SOD 3,000 MG in 0.9 % SODIUM CHLORIDE 100 ML IV SCH ×2 (17:38→22:42)
[2022-01-25] MEDS: PANTOprazole 40 MG TAB PO SCH ×2 (20:32→20:41)
[2022-01-26] MEDS: AMPICILLIN/SULBACTAM SOD 3,000 MG in 0.9 % SODIUM CHLORIDE 100 ML IV SCH ×2 (05:12→11:38)
[2022-01-26 06:10] LABS: Basophils # (auto) 0.08 K/uL (0-0.2); Basophils % (auto) 0.8 %; Eosinophils # (auto) 0.61 K/uL (0-0.50); Eosinophils % (auto) 6.3 %; Hematocrit (blood only) 29.9 % (34.1-44.9); Hemoglobin 9.1 g/dl (12.0-16.0); Immature Granulocytes # (auto) 0.14 K/uL (0.00-0.02); Immature Granulocytes % (auto) 1.4 %; Lymphocytes # (auto) 2.43 K/uL (1.2-3.4); Mean Corpuscular Hemoglobin 27.2 pg (25.0-34.0); Mean Corpuscular Hgb Conc 30.4 g/dL (32.0-36.0); Mean Corpuscular Volume 89.5 fL (80.0-100.0); Mean Platelet Volume 9.4 fL (9.4-12.3); Monocytes % (auto) 7.2 %; Neutrophils # (auto) 5.75 K/uL (1.4-6.5); Neutrophils % (auto) 59.3 %; Platelet Count 519 K/uL (130-400); RDW Coefficient of Variation 16.2 % (11.5-14.5); RDW Standard Deviation 50.4 fL (36.4-46.3); Red Blood Count 3.34 M/uL (3.93-5.22); White Blood Count 9.71 K/ul (4.8-10.8)
[2022-01-26 06:34] LABS: BUN Creatinine Ratio 13.9 (10-20); C Reactive Protein 1.84 mg/dl (0-0.5); Calcium 8.3 mg/dl (8.5-10.1); Est GFR (African American) 89.8 ml/min; Est GFR (Non-African American) 77.4 ml/min; Potassium 3.3 mmol/L (3.5-5.1)
[2022-01-26] MEDS ORDERED: POTASSIUM CHLORIDE CRTAB 20 MEQ TABCR PO SCH (09:00)
[2022-01-26] MEDS: traMADol HCL 50 MG TABLET PO SCH (10:17)
[2022-01-26] MEDS: PANTOprazole 40 MG TAB PO SCH (10:17)
[2022-01-26] MEDS: CITALOPRAM 20 MG TAB PO SCH (10:18)
[2022-01-26] MEDS: GABAPENTIN 600 MG TAB PO SCH (10:18)
[2022-01-26] MEDS: ENOXAPARIN INJ 40 MG/0.4 ML SYR SQ SCH (11:40)
--- NOTE | 2022-01-26 12:34 | Discharge Summary ---
Date of Service January 26, 2022 Principal Diagnosis Necrotizing fasciitis Discharge Exam General: A&O to building and name. Sitting up in bed. NAD. Cooperative. Skin: Lower chest wall with wound VAC in place, no surrounding erythema, no airleak. Decubitus ulcer present HEENT: Atraumatic, normocephalic. Pulm: Moderate air movement, no overt wheezes/rales symmetrical chest rise. No increase in work of breathing. No respiratory distress. Cardiac: RRR, -mrg. Radial pulses intact and symmetrical. Abdominal: Nontender, nondistended, soft. BS present. Extremities: paraplegic at baseline 2/2 MS Discharge Data Allergies Allergy/AdvReac Type Severity Reaction Status Date / Time levofloxacin [From Levaquin] Allergy Unknown Unknown Unverified 01/17/22 13:00 Consultations 01/17/22 14:04 ED Decision to Admit Stat 01/17/22 16:55 Consult General Surgery Stat 01/17/22 20:40 Consult Casing Splitter Routine 01/24/22 16:21 Consult Infectious Diseases Routine Procedures Performed Operation Date: 01/17/22 14:25 Actual Procedures p Left Breast and Chest Wall Incision Drainage and Debridement including soft tissue including muscle greater than 50cm squared(Left) - Hair Mcknight DO, FACS Operation Date: 01/18/22 08:00 <No data on this case meets the specified criteria> Ordered Studies 01/17/22 12:18 CT chest diagnostic w con Stat 01/17/22 12:32 CT abd pelvis IV con only Stat Hospital Course (1) Abscess or cellulitis of chest wall: Joan is an 81-year-old female with a history of paraplegia 2/2 MS who presented with concern for cellulitis with rapid expansion to necrotizing fasciitis with polymicrobial anaerobes on wound cultures. She clinically improved and stabilized following surgical debridement and treatment with vancomycin and Zosyn. Infectious disease was consulted, recommended 6 weeks of IV treatment with Unasyn to be complete 02/28/2022. Patient had refused warfarin, agreed to take this after discharge. Due to concern for bleeding risk was placed on prophylactic dosing of Lovenox, with a low-dose bridge back to warfarin as outpatient on discharge. To do as outpatient: 1. Complete course of IV Unasyn for necrotizing fasciitis 3 g every 6 hours until 02/28/2022 2. Weekly CBC/BMP until antibiotics complete. Biweekly CRP 3. Low-dose Lovenox bridge until warfarin dosing near therapeutic 4. Continued wound VAC and wound care 5. Outpatient follow-up to surgery and PCP 6. Copaxone held in the setting of active infection, reasonable to continue this after 1 to 2 weeks on shared decision making with outpatient neurology follow-up. Cellulitis of epigastrium with extension to the left breast and chest wall - rapid progression over 2 days MANAGER UNION - Concern for NEC FASC- Surgical debridement 01/18/22 - Wound culture + Peptoniphilius asaccharolyticus, discussed with pharmacy, now on vancomycin and Zosyn - Multiple anaerobic organisms on culture from a chest wall micro (Finegoldia anaerobe, bacteroides, peptoniphilus, prevotella) no sensitivities available as all would be sent out. has been on vanco for HOOP MAKER (epidermidis w/ Methicillin resistance). Completed 5 days of ABX for this. - Recommended for 6 weeks of IV abx treatment given poor blood supply and potential for underlying OM involvement although no cortical destruction on CT. Appreciate recommendations. Initial Blood cultures + HOOP MAKER +Anaerobe. No murmur. No persistent fever/negative surveillance BC - Repeat blood cultures / NG, final -also some full thickness skin irritation to buttock being followed by wound care - Pain adequately controlled 01/24-01/25 Continue wound VAC, will have follow-up in wound care as outpatient, surgery signed off 01/24 - Abx narrowed 01/25 to Unasyn. Abx 6 week course with Unasyn 3g q6h. (Stop date 02/28/22). CBC/CMP weekly, CRP biweekly. - Hemodynamically stable with negative surveillance cx and improved labs. Afebrile hemodynamically stable, progressed to complete course as outpatient Continued wound care and wound VAC management (2) Sepsis: Sepsis from chest wall soft tissue infection and possible urine source -> resolved - s/p debridgement for source control - ABX therapy as above (3) Catheter-associated urinary tract infection: Catheter change out - in past grew E. Coli ESBL sensavite to Zosyn, on zosyn as above - UC here multiple growth 01/17, repeat 01/20 ng - ABX as above (4) Hypoglycemia: pt with recurrent hypoglycemia CT abdomen and pelvis 06/29 has moderately atrophic pancrease A1C 6.1% BSG low 100s, adequate since d/c SSI, continue to follow (5) Esophagitis: Chronic continue PPI - pt able to take po per speech (6) Paraplegia: Chronic condition from her MS as per HPI resident of [facility] for this reason (7) HLD (hyperlipidemia): Continue statin as recovers (8) HTN (hypertension): Holding Diltiazem at this time (9) Multiple sclerosis: Hold Copaxone - not on formulary on lovenox for dvt prevention,previous DVT treatment commented december 2018 was innitially on apixiban, was on coumadin but pt refuses to take. On revisit would agree to take this once back at [facility], patient continued on low-dose prophylactic bridge with home warfarin dose to be resumed and INR check as outpatient. Total Time Total Time Spent Total Time Spent (In Minutes): Time spend day of discharge 45 minutes including direct patient care, documentation, review of labs and images, and coordination of care. Discharge Plan Discharge Items Patient Disposition: Transfer [facility] Reason For Visit: CHEST WALL ABSCESS Discharge Diagnosis: Necrotizing fasciitis Activity: Per Instructions section Non-emergency contact: Primary Care Provider and Surgeon Call non-emergency contact if: you have any medication questions, your symptoms worsen, your pain is not controlled and your pain is worsening Follow-up/Referrals: [facility] [Primary Care Provider] - Diet: Carb Consistent or DM2 Addtl Attending Provider Instructions: You were seen in the hospital for a severe infection called necrotizing fasciitis. You are treated with surgical debridement, and clinically improved following surgical intervention and antibiotic care. You have had a wound VAC placed which will require ongoing care and you should heal over several weeks. You have been prescribed a total 6-week course of antibiotics which will be complete 02/28/2022 as noted below. You did not wish to take warfarin during hospitalization, you were amenable to DVT prophylaxis with Lovenox. 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 You gaited you are okay resuming warfarin once he returned back to [facility], a low-dose bridge of Lovenox 40 was prescribed for 1 week until your INR resumes near therapeutic levels. You have been prescribed an antibiotic, Unasyn. Please continue Unasyn 3 g IV every 6 hours until 02/28/2022 to complete 6 weeks of total treatment. Your case was reviewed with infectious disease. While the typical course for necrotizing fasciitis is 14 weeks, due to concern for poor healing and near bone involvement it was recommended to complete 6 weeks of IV treatment. You have had a ultrasound-guided peripheral IV placed to facilitate antibiotic treatment. Your Copaxone has been temporarily held while undergoing treatment for active infection. It is reasonable to resume this in approximately 1-2 weeks, please follow-up with your neurologist regarding resuming this medication. If you develop any new or worsening symptoms including fever, chills, sweats, chest pain, chest pressure, difficulty breathing, uncontrolled nausea/vomiting, rash, wheezing, passing out or nearly passing out, bleeding, black/bloody bowel movements, or other new or concerning symptoms please call your primary care physician, or call 911 for re-evaluation in the emergency department if you are very concerned. Pending Studies at Discharge: No Stand-Alone Forms: My [facility] Skilled Items Patient informed of condition?: Yes DNR: Yes Discharge Level of Care: Skilled Communicable Disease: No Discharge Prognosis: Stable Lines: None Urinary Catheter: No Medications and DC Order Prescriptions: New enoxaparin [Lovenox] 40 mg/0.4 mL Syringe 40 mg subcut Q24H 7 Days Qty: 2.8 RF: 0 ampicillin-sulbactam [Unasyn] 3 gram recon soln 3 g IV Q6H 34 Days Qty: 136 RF: 0 Continued cholecalciferol (vitamin D3) [Vitamin D3] 2,000 unit Tablet 2,000 unit PO QAM RF: 0 cyanocobalamin (vitamin B-12) [Vitamin B-12] 1,000 mcg Tablet 1,000 mcg PO QAM RF: 0 glatiramer [Copaxone] 20 mg/mL Syringe 20 mg SUBCUT QAM RF: 0 gabapentin 600 mg Tablet 1,200 mg PO BID RF: 0 citalopram 10 mg Tablet 10 mg PO DAILY RF: 0 multivitamin with minerals Tablet 1 tab PO DAILY RF: 0 potassium chloride [Klor-Con M10] 10 mEq Tablet,Er Particles/Crystals 20 meq PO DAILY RF: 0 acetaminophen 325 mg Tablet 650 mg PO Q6 PRN (Reason: Fever Or Pain) RF: 0 loperamide 2 mg Capsule 2 mg PO Q6H PRN (Reason: Diarrhea) RF: 0 diltiazem HCl [DILT-XR] 120 mg capsule,ext.rel 24h degradable 120 mg PO DAILY RF: 0 lip protective (padimate o) Stick 1 ea TOPICAL QPM RF: 0 warfarin 5 mg tablet 5 mg PO HS RF: 0 methenamine hippurate 1 gram tablet 1 g PO BID RF: 0 pantoprazole 40 mg tablet,delayed release (DR/EC) 40 mg PO BID RF: 0 Saccharomyces boulardii [Florastor] 250 mg Capsule 10,000 mmu cells PO BID RF: 0 ascorbic acid (vitamin C) [Vitamin C] 1,000 mg Tablet 1 g PO BID RF: 0 tramadol 50 mg tablet 100 mg PO TID RF: 0 Protein Nutritional Shake Liquid 1 ea PO .EVERY AFTERNOON RF: 0 Artificial Tears (PF) Dropperette 2 drp OPHTHALMIC (EYE) Q8 PRN (Reason: Dry Eyes) RF: 0 Discontinued cephalexin 500 mg capsule 500 mg PO TID RF: 0 sulfamethoxazole-trimethoprim 800-160 mg tablet 1 tab PO Q12 RF: 0 Discharge Orders: Discharge Order (Routine); Ordered 01/26/22 Ordered By: Sanjeev Arcos/Other Patient Handouts: A1C Admission Data Admit Date/Time: 01/17/22 15:16 Attending Provider: Sanjeev Balbuena Admit Provider: Roni Jolley [facility] Other Providers: [facility] ; Roni Jolley ; Hair Mcknight ; Dangelo Hagen ; Derrick Aragon ; Ashley Faria ; Yimi Ng I. ; Vadim Hammond II ; Maranda Spencer ; Richie Segal ; Jr Carrillo Other Interventions: Discharge Summary Assessment (RN) Last Done: 01/26/22 12:06 Coding Level of Care Code D/C DAY MANAGEMENT >30 MINS Diagnoses Abscess or cellulitis of chest wall Sepsis A41.9 Sepsis acute organ dysfunction status: unspecified Sepsis type: sepsis due to unspecified organism Catheter-associated urinary tract infection T83.511A; N39.0 Hypoglycemia E16.2 Esophagitis K20.9 Paraplegia G82.20 HLD (hyperlipidemia) E78.5 Hyperlipidemia type: unspecified HTN (hypertension) I10 Hypertension type: essential hypertension Multiple sclerosis G35
== END 2022-01-26 13:03 | DRG 853 ==
LOC: ED 11:43 → SUATTDRO 15:16 → 2S 15:16 → 1E 20:35 → 2S 01-20 12:46

== ENCOUNTER 2023-11-15 12:52 | Inpatient (IN) ==
--- NOTE | 2023-11-15 13:09 | Emergency Department Note ---
Impression & Plan Complicated urinary tract infection, Weakness, Hypokalemia, Encephalopathy, Acute dehydration ED Provider Note NAME: CJ KEITA AGE: 83 SEX: F : 1940 ARRIVES VIA: Ambulance INFORMANT: Patient, initial triage nursing note ED PROVIDER(S): Ben Larson MD CHIEF COMPLAINT: Cognitive decline, UTI MEDICAL DECISION MAKING: [Patient presents due to concern for worsening cognitive decline in the setting of recent treatment for UTI. IV was established blood work is obtained along with blood cultures procalcitonin and lactate. I did speak with ED pharmacy as the patient does have prior history of ESBL. Prior culture reviewed she will E. coli is sensitive to cephalosporins. Will broaden coverage starting ertapenem. Patient was ordered IV fluids. Patient with a white count of 11 with a normal H&H and platelet count. The patient's kidney function unremarkable. The patient does have low potassium at 2.7. Patient was ordered replete meant 4 separate bags of 10 mEq of potassium IV. Patient's sodium is elevated at 149. Patient's LFTs are unremarkable urinalysis does show concern for possible infection. Patient did have a CT of the head chest x-ray completed. CT head does not show any change from prior. Cardiomegaly noted on chest x-ray without obvious pneumonia. Given the patient's mental status change concern for complicated UTI did speak the on-call hospitalist service Michael Lucia PA-C and Dr. Balbuena. Patient was admitted to the medicine service.Patient's lactate and procalcitonin were negative. The patient did receive 1500 cc of IV fluids and was never hypotensive. Discussion w/ other healthcare providers: Michael Lucia PA-C and Dr. Balbuena Prior /Outside records reviewed: I reviewed a prior discharge summary from May 16, [address] Ruth. Patient had due to concern for emesis and increased confusion at that time. Had been on Augmentin for ESBL UTI. This was switched to ertapenem during the time of her inpatient stay. Differential diagnosis: Infection, dehydration, metabolic abnormality, hypo/hyperglycemia, electrolyte imbalance, anemia, UTI, pneumonia, thyroid dysfunction among others were considered. Diagnostics, as interpreted by me: ECG: Normal sinus rhythm, rate of 80, normal intervals, left axis deviation no ST elevations. Significant motion artifact noted. Cardiac monitoring: An order was placed for continuous cardiac monitoring. The monitor shows a rate of 88 with sinus rhythm. Patient was placed on pulse oximetry Medical decision rules: None Imaging studies: I informally interpreted the patient's chest x-ray which does not show obvious pneumonia or pneumothorax with formal report to follow. HPI: Patient presents from [facility] due to concern for worsening mental status changes and not being at her baseline. The patient did have a recent UTI treated with Rocephin at [facility] but has had worsening clinical decline not is alert or responsive to questioning. No reported falls or trauma. Patient does have a prior history of ESBL treated last year but did have a recent urine culture that noted E. coli that was sensitive to Rocephin. Patient does not respond to questions at this time but is awake alert and will follow some basic commands like breathing in. Patient does have a history of MS and is bedbound at baseline. The patient is also on chronic 2 L nasal cannula PAST MEDICAL HISTORY: See Below PAST SURGICAL HISTORY: See Below SOCIAL HISTORY: See Below HOME MEDICATIONS: See Below ALLERGIES: See Below VITALS: See Below PHYSICAL EXAMINATION: GENERAL: NAD, non-toxic. EYE EXAM: Normal conjunctiva. PERRL, no anisocoria and EOM's grossly intact w/o pain. OROPHARYNX: Moist mucus membranes, grossly normal dentition. NECK: Trachea midline, no stridor. Supple, no nuchal rigidity, no adenopathy, non-tender. No signs of meningismus. FROM of the neck with good chin to chest and neck extension. LUNGS: Crackles noted to the right chest. Normal chest wall mechanics. HEART: NSR, no MRG. ABDOMEN: Abdomen soft, non-tender, no masses, no rebound or guarding. BACK: No CVA TTP. SKIN: No rashes and no bruising. : No obvious erythema to the external vagina and groin area. UPPER EXTREMITIES: Upper extremities are grossly normal. LOWER EXTREMITIES: Grossly normal, no edema. NEURO EXAM: Awake and alert will follow some basic commands. Currently nonverbal. Past Med/Surg History Medical History Hypokalemia Depression Neurogenic bladder disorder Esophageal reflux History of depression Hx of decubitus ulcer History of closed head injury Hypoglycemia Necrotizing fasciitis Leukocytosis Endotracheally intubated Admitted to intensive care unit Encounter for pre-operative examination Abscess or cellulitis of chest wall Sepsis Catheter-associated urinary tract infection Sepsis Atrial flutter with rapid ventricular response Altered mental status DVT (deep venous thrombosis) [place] grade C esophagitis Esophagitis Thank you for allowing us to participate in the care of this patient. If you should have any further questions or concerns, don't hesitate to contact us at extension [phone] or [phone]. Esophagitis Urinary retention Constipation Fever Abnormal urinalysis SVT (supraventricular tachycardia) Paraplegia Lymphedema of left leg History of multiple sclerosis Multiple sclerosis Left-sided weakness Trigeminal neuralgia of left side of face Surgical History History of craniotomy History of incision and drainage (01/19/22) Left Breast and Chest Wall Incision Drainage and Debridement including soft tissue including muscle greater than 50cm squared(Left) - Hair Mcknight DO, FACS Family History Other Family history non-contributory Social History Smoking Status: Never smoker Second Hand Exposure: No; Do You Dip or Chew Tobacco: No; Hx Alcohol Use: No Hx Substance Use: No Preferred Language: Lao Communication Ability: Impaired Communication Ability Comment: patient was able to answer yes or no questions Cigar Bander Hand Required: No Beliefs That Will Affect Care: None marital status: Current Living Situation: Care Home Current Living Situation Comment: Home Health Feels Safe at Home: Yes Assistive Devices: Wheelchair Allergies Allergies Allergy/AdvReac Type Severity Reaction Status Date / Time levofloxacin [From Levaquin] Allergy Unknown Unknown Verified 11/15/23 16:33 promethazine Allergy Unknown Verified 11/15/23 16:33 Home Meds Home Medications Medication Instructions Recorded Confirmed House Shakes 1 ea PO DAILY 11/15/23 11/15/23 Saccharomyces boulardii 250 mg 250 mg PO BID 11/15/23 11/15/23 capsule (Florastor) acetaminophen 325 mg tablet 650 mg PO Q6 PRN Fever Or Pain 11/15/23 11/15/23 (Tylenol) ascorbic acid (vitamin C) 1,000 mg 1 g PO AMHS 11/15/23 11/15/23 tablet (Vitamin C) bisacodyl 10 mg rectal suppository 10 mg MO HS 11/15/23 11/15/23 ceftriaxone 1 gram solution for 1 g IM QAM 11/15/23 11/15/23 injection cholecalciferol (vitamin D3) 50 50 mcg PO DAILY 11/15/23 11/15/23 mcg (2,000 unit) tablet (Vitamin D3) citalopram 10 mg tablet 10 mg PO DAILY 11/15/23 11/15/23 cyanocobalamin (vitamin B-12) 1,000 mcg PO DAILY 11/15/23 11/15/23 1,000 mcg tablet (Vitamin B-12) eucalyptus oil-menthol 7 mg 1 frankie PO .Q1HR PRN Sore Throat 11/15/23 11/15/23 lozenges (Cough Drops (with eucalyptus)) gabapentin 600 mg tablet 600 mg PO TID 11/15/23 11/15/23 glatiramer 20 mg/mL subcutaneous 20 mg subcut M 11/15/23 11/15/23 syringe (Copaxone) lidocaine HCl 10 mg/mL (1 %) 2.1 ml IM QAM 11/15/23 11/15/23 injection solution lip protective (padimate o) 1 ea topical QPM 11/15/23 11/15/23 lorazepam 0.5 mg tablet 0.5 mg PO Q6 PRN Anxiety 11/15/23 11/15/23 menthol 0.44 %-zinc oxide 20.6 % 1 applic topical QS 11/15/23 11/15/23 topical ointment (Calmoseptine) methenamine hippurate 1 gram tablet 1 g PO BID 11/15/23 11/15/23 metoprolol tartrate 25 mg tablet 25 mg PO AMHS 11/15/23 11/15/23 multivitamin 1 tab PO DAILY 11/15/23 11/15/23 ondansetron 4 mg disintegrating 4 mg PO Q6 PRN Nausea 11/15/23 11/15/23 tablet pantoprazole 40 mg tablet,delayed 40 mg PO QAM 11/15/23 11/15/23 release potassium chloride 10 mEq 20 meq PO TID 11/15/23 11/15/23 tablet,extended release sennosides 8.6 mg-docusate sodium 1 tab-cap PO AMHS 11/15/23 11/15/23 50 mg tablet (Senokot-S) tramadol 50 mg tablet 100 mg PO .TID 1 MONTH 11/15/23 11/15/23 warfarin 5 mg tablet 5 mg PO QPM 11/15/23 11/15/23 Results & Data (ED) Vital Signs Vital Signs - 24 hr 11/15/23 13:01 11/15/23 13:03 11/15/23 14:02 Temperature 36.9 C Temperature Source Oral Pulse Rate 67 66 Pulse Rate [Apical] 66 Pulse Rhythm Regular Pulse Rhythm [Apical] Regular Pulse Strength Normal Pulse Strength [Apical] Normal Respiratory Rate 19 18 Respiratory Effort / Characteristics Non-Labored Spontaneous Non-Labored Spontaneous Respiratory Depth Normal Normal Respiratory Pattern Regular Regular Blood Pressure 181/91 H Blood Pressure [Right Arm] 181/97 H Blood Pressure Mean 121 Blood Pressure Mean [Right Arm] 125 Pulse Oximetry 97 99 Oxygen Delivery Method Nasal Cannula Nasal Cannula Oxygen Flow Rate 2 Sepsis Recent Fever Within 48 Hours No Sepsis New/Unexplained Change in Mental Status Yes Sepsis Action Taken by Nursing No Action Required 11/15/23 14:02 11/15/23 14:47 11/15/23 15:30 Temperature 36.5 C Temperature Source Oral Pulse Rate Pulse Rate [Apical] 63 79 Pulse Rhythm Pulse Rhythm [Apical] Regular Regular Pulse Strength Pulse Strength [Apical] Normal Normal Respiratory Rate 19 19 Respiratory Effort / Characteristics Non-Labored Spontaneous Non-Labored Spontaneous Respiratory Depth Normal Normal Respiratory Pattern Regular Regular Blood Pressure Blood Pressure [Right Arm] 174/91 H 175/92 H Blood Pressure Mean Blood Pressure Mean [Right Arm] 118 119 Pulse Oximetry 99 96 94 Oxygen Delivery Method Nasal Cannula Nasal Cannula Nasal Cannula Oxygen Flow Rate 2 2 2 Sepsis Recent Fever Within 48 Hours Sepsis New/Unexplained Change in Mental Status Sepsis Action Taken by Nursing 11/15/23 16:39 11/15/23 17:07 Temperature Temperature Source Pulse Rate 70 Pulse Rate [Apical] 65 Pulse Rhythm Pulse Rhythm [Apical] Pulse Strength Pulse Strength [Apical] Respiratory Rate 19 Respiratory Effort / Characteristics Non-Labored Spontaneous Respiratory Depth Normal Respiratory Pattern Regular Blood Pressure Blood Pressure [Right Arm] 173/85 H Blood Pressure Mean Blood Pressure Mean [Right Arm] 114 Pulse Oximetry 99 Oxygen Delivery Method Nasal Cannula Oxygen Flow Rate Sepsis Recent Fever Within 48 Hours Sepsis New/Unexplained Change in Mental Status Sepsis Action Taken by Care Home Medications Current Medication List: was personally reviewed by me Laboratory Data Attestation: I reviewed the patient's lab results. 11/15/23 13:29 11/15/23 13:29 Lab Results 11/15/23 11/15/23 Range/Units 13:29 Unknown WBC 11.71 H (4.8-10.8) K/ul RBC 5.03 (4.20-5.40) M/uL Hgb 14.0 (12.0-16.0) g/dl Hct 46.6 (37.0-47.0) % MCV 92.6 (80.0-100.0) fL MCH 27.8 (25.0-34.0) pg MCHC 30.0 L (32.0-36.0) g/dL RDW Std Deviation 48.3 H (36.4-46.3) fL RDW Coeff of Aparna 14.2 (11.5-14.5) % Plt Count 312 (130-400) K/uL MPV 10.1 (9.4-12.4) fL Immature Gran % (Auto) 1.0 % Neut % (Auto) 71.6 % Lymph % (Auto) 19.5 % [place] % (Auto) 7.3 % Eos % (Auto) 0.3 % Baso % (Auto) 0.3 % Neut # (Auto) 8.39 H (1.40-6.50) K/uL Lymph # (Auto) 2.28 (1.20-3.40) K/uL Newberry # (Auto) 0.85 H (0.11-0.59) K/uL Eos # (Auto) 0.03 (0.00-0.50) K/uL Baso # (Auto) 0.04 (0.00-0.20) K/uL Immature Gran # (Auto) 0.12 (0.01-0.20) K/uL PT 24.5 H (9.0-12.0) Seconds INR 2.4 H (0.9-1.1) APTT 36 H (21-31) Seconds PTT Ratio 1.3 Sodium 149 H (136-145) mmol/L Potassium 2.7 L D (3.5-5.1) mmol/L Chloride 110 H (98-107) mmol/L Carbon Dioxide 31 (21-32) mmol/L Anion Gap 8 (3-11) BUN 27 H (6-23) mg/dl Creatinine 0.70 (0.6-1.2) mg/dl Est Cr Clr Drug Dosing 60.3 ml/min Est GFR ( Amer) 91.6 ml/min Est GFR (Non-Af Amer) 79.0 ml/min BUN/Creatinine Ratio 38.6 H (10-20) Glucose 118 H (70-99(Fasting)) mg/dl Osmolality 312 H (280-300) mOsm/kg Lactate 1.2 (0.4-2.0) mmol/L Calcium 8.9 (8.6-10.3) mg/dl Phosphorus 2.7 (2.5-4.9) mg/dl Magnesium 2.1 (1.7-2.4) mg/dl Total Bilirubin 0.4 (0.2-1.0) mg/dl AST 39 (13-39) U/L ALT 49 (7-52) U/L Alkaline Phosphatase 103 (34-104) U/L Total Protein 6.9 (6.0-8.3) gm/dl Albumin 3.8 (3.4-5.0) gm/dl Globulin 3.1 (2.5-4.0) gm/dl Albumin/Globulin Ratio 1.2 (0.9-2) Procalcitonin 0.11 (0-0.5) ng/ml TSH 0.461 (0.300-4.500) uIu/ml Urine Color Yellow Urine Appearance Cloudy A (Clear) Urine pH 5.5 (4.5-7.5) Ur Specific [place] 1.021 (1.000-1.030) Urine Protein Trace H (Negative) Urine Glucose (UA) Negative (Negative) Urine Ketones Negative (Negative) Urine Blood Negative (Negative) Urine Nitrite Negative (Negative) Urine Bilirubin Negative (Negative) Urine Urobilinogen Negative (Negative) Ur Leukocyte Esterase 1+ H (Negative) Urine WBC (Auto) 0-5 (0-5) /hpf Urine RBC (Auto) 3-5 H (0-2) /hpf U Hyaline Cast (Auto) 3-5 H (0-2) /lpf U Epithel Cells (Auto) 11-20 H (0-2) /hpf Urine Bacteria (Auto) 1+ H (None Seen) Urine Mucus Present A (None Prsent) Administered Medications Potassium Chloride (K Joe / Wtr) 10 meq in 100 mls @ 100 mls/hr IV Q1H JAVID Stop: 11/15/23 18:59 Last Admin: 11/15/23 16:49 Dose: 100 mls/hr Documented By: Infusion: 11/15/23 16:49 Dose: Infused Documented By: Admin: 11/15/23 15:49 Dose: 100 mls/hr Documented By: Infusion: 11/15/23 15:49 Dose: Infused Documented By: Admin: 11/15/23 15:00 Dose: 100 mls/hr Documented By: JACOBO Discontinued Medications Sodium Chloride (Nss) 1,000 mls @ 999 mls/hr IV .Q1H1M JAVID Stop: 11/15/23 14:30 Last Admin: 11/15/23 14:50 Dose: Not Given Documented By: JACOBO Ertapenem (Invanz) 10 mls @ 2 mls/min IV NOW STA Stop: 11/15/23 13:22 Last Admin: 11/15/23 14:05 Dose: 2 mls/min Documented By: JACOBO Sodium Chloride (Nss) 1,000 mls @ 999 mls/hr IV .Q1H1M ONE Stop: 11/15/23 14:18 Last Infusion: 11/15/23 15:34 Dose: Infused Documented By: Admin: 11/15/23 14:03 Dose: 999 mls/hr Documented By: JACOBO Sodium Chloride (Nss) 500 mls @ 999 mls/hr IV .Q31M ONE Stop: 11/15/23 15:21 Last Admin: 11/15/23 15:02 Dose: 999 mls/hr Documented By: JACOBO Imaging Data Radiologist's Impression: Chest X-Ray 11/15/23 13:18 XR chest 1V portable HISTORY: weakness COMPARISON: Chest 05/11/2023. FINDINGS: There are low lung volumes. No pneumothorax. No pleural effusions. The heart remains mildly enlarged. There is mild central pulmonary vascular congestion without overt edema. No acute fractures. Left basilar linear densities persist. This favors subsegmental atelectasis or scarring. No new focal lung consolidations. IMPRESSION: 1. Cardiomegaly and mild congestive change. 2. Left basilar linear densities again noted. This is nonspecific but favors subsegmental atelectasis or scarring. ACT 112: Negative or not required by law. Electronically signed by: Michael Smith M.D. 11/15/2023 2:[address] 11/15/23 13:30 CT OF THE HEAD WITHOUT CONTRAST CLINICAL HISTORY: Confusion. COMPARISON STUDY: Head CT T May 11, 2023. CT DOSE: 1406.31 mGy.cm TECHNIQUE: Helical axial images of the head were obtained without IV contrast. Automated exposure control was utilized for the study. A dose lowering technique was utilized adhering to the principles of ALARA. FINDINGS: This exam is mildly compromised given motion artifact. No acute intracranial hemorrhage, midline shift or mass effect is present. The ventricular system is unremarkable. White matter hypodensities are unchanged and favor small vessel disease. The basal cisterns are patent. No extra-axial collections are present. There are no findings to suggest acute dural sinus thrombosis or acute territorial infarct. No significant calvarial abnormalities are present. Visualized portions of the sinuses and mastoid air cells are clear. Left retromastoid craniotomy is noted. IMPRESSION: No acute intracranial findings. No change in appearance of the brain. ACT 112: Negative or not required by law. Electronically signed by: Naga Genao M.D. 11/15/2023 1:58 PM Discharge Plan Visit Data Chief Complaint: Urinary Symptoms Stated Complaint: UTI ED Provider: Ben Larson Discharge Problem: Complicated urinary tract infection, Weakness, Hypokalemia, Encephalopathy, Acute dehydration Forms Stand Alone Forms: My [facility] Prescriptions Prescriptions: No Action multivitamin Tablet 1 tab PO DAILY lidocaine HCl 10 mg/mL (1 %) solution 2.1 ml IM QAM Rx Instructions: for 10 days, use to dilute rocephin ascorbic acid (vitamin C) [Vitamin C] 1,000 mg Tablet 1 g PO AMHS acetaminophen [Tylenol] 325 mg Tablet 650 mg PO Q6 PRN (Reason: Fever Or Pain) gabapentin 600 mg tablet 600 mg PO TID citalopram 10 mg tablet 10 mg PO DAILY sennosides-docusate sodium [Senokot-S] 8.6-50 mg Tablet 1 tab-cap PO AMHS cyanocobalamin (vitamin B-12) [Vitamin B-12] 1,000 mcg Tablet 1,000 mcg PO DAILY potassium chloride 10 mEq tablet extended release 20 meq PO TID tramadol 50 mg tablet 100 mg PO .TID 1 MONTH Rx Instructions: stop @ 1630 ceftriaxone 1 gram recon soln 1 g IM QAM Rx Instructions: 1st dose given 11/13/23, give for 10 days, use lidocaine to dilute methenamine hippurate 1 gram tablet 1 g PO BID lorazepam 0.5 mg tablet 0.5 mg PO Q6 PRN (Reason: Anxiety) bisacodyl 10 mg Suppository 10 mg MO HS pantoprazole 40 mg tablet,delayed release (DR/EC) 40 mg PO QAM warfarin [Coumadin] 5 mg Tablet 5 mg PO QPM ondansetron 4 mg tablet,disintegrating 4 mg PO Q6 PRN (Reason: Nausea) Rx Instructions: For 1 week, start 11/11/23 Saccharomyces boulardii [Florastor] 250 mg Capsule 250 mg PO BID metoprolol tartrate 25 mg tablet 25 mg PO AMHS Cough Drops (with eucalyptus) 7 mg Lozenge 1 frankie PO .Q1HR PRN (Reason: Sore Throat) cholecalciferol (vitamin D3) [Vitamin D3] 50 mcg (2,000 unit) Tablet 50 mcg PO DAILY menthol-zinc oxide [Calmoseptine] 0.44-20.6 % Ointment 1 applic TOPICAL QS Rx Instructions: Applt to buttocks, left posterior thigh Chapstick Lip Thatcher Stick 1 ea TOPICAL QPM glatiramer [Copaxone] 20 mg/mL Syringe 20 mg SUBCUT QAM House Shakes 1 ea PO DAILY Rx Instructions: chocolate Referrals Referrals: [facility] [Primary Care Provider] -
[2023-11-15 13:48] LABS: Basophils # (auto) 0.04 K/uL (0.00-0.20); Basophils % (auto) 0.3 %; Eosinophils # (auto) 0.03 K/uL (0.00-0.50); Eosinophils % (auto) 0.3 %; Hematocrit (blood only) 46.6 % (37.0-47.0); Immature Granulocytes # (auto) 0.12 K/uL (0.01-0.20); Lymphocytes # (auto) 2.28 K/uL (1.20-3.40); Lymphocytes % (auto) 19.5 %; Mean Corpuscular Hemoglobin 27.8 pg (25.0-34.0); Mean Corpuscular Volume 92.6 fL (80.0-100.0); Mean Platelet Volume 10.1 fL (9.4-12.4); Monocytes # (auto) 0.85 K/uL (0.11-0.59); Monocytes % (auto) 7.3 %; Neutrophils # (auto) 8.39 K/uL (1.40-6.50); Neutrophils % (auto) 71.6 %; Platelet Count 312 K/uL (130-400); RDW Coefficient of Variation 14.2 % (11.5-14.5); RDW Standard Deviation 48.3 fL (36.4-46.3); Red Blood Count 5.03 M/uL (4.20-5.40); White Blood Count 11.71 K/ul (4.8-10.8)
--- NOTE | 2023-11-15 13:59 | CT Scan Report ---
CT OF THE HEAD WITHOUT CONTRAST CLINICAL HISTORY: Confusion. COMPARISON STUDY: Head CT T May 11, 2023. CT DOSE: 1406.31 mGy.cm TECHNIQUE: Helical axial images of the head were obtained without IV contrast. Automated exposure con trol was utilized for the study. A dose lowering technique was utilized adhering to the principles o f ALARA. FINDINGS: This exam is mildly compromised given motion artifact. No acute intracranial hemorrhage, mi dline shift or mass effect is present. The ventricular system is unremarkable. White matter hypodensi ties are unchanged and favor small vessel disease. The basal cisterns are patent. No extra-axial arabella ections are present. There are no findings to suggest acute dural sinus thrombosis or acute territori al infarct. No significant calvarial abnormalities are present. Visualized portions of the sinuses an d mastoid air cells are clear. Left retromastoid craniotomy is noted. IMPRESSION: No acute intracranial findings. No change in appearance of the brain. ACT 112: Negative or not required by law. Electronically signed by: Naga Genao M.D. 11/15/2023 1:58 PM
[2023-11-15] MEDS: SODIUM CHLORIDE 0.9% 1,000 ML IV ONE (14:03)
[2023-11-15] MEDS: ERTAPENEM SODIUM 10 ML IV STA (14:05)
[2023-11-15 14:12] LABS: Albumin Globulin Ratio 1.2 (0.9-2); Albumin Level 3.8 gm/dl (3.4-5.0); BUN Creatinine Ratio 38.6 (10-20); Bilirubin,Total 0.4 mg/dl (0.2-1.0); Calcium 8.9 mg/dl (8.6-10.3); Creatinine Clr Calc Pharmacy 60.3 ml/min; Est GFR (African American) 91.6 ml/min; Globulin 3.1 gm/dl (2.5-4.0); Magnesium 2.1 mg/dl (1.7-2.4); Potassium 2.7 mmol/L (3.5-5.1); Total Protein 6.9 gm/dl (6.0-8.3)
[2023-11-15 14:22] LABS: Appearance Urine Cloudy (Clear); Bilirubin Urine Negative (Negative); Blood Urine Negative (Negative); Color Urine Yellow; Glucose Urine UA Negative (Negative); Ketones Urine Negative (Negative); Leukocyte Esterase Urine 1+ (Negative); Nitrite Urine Negative (Negative); Protein Urine Trace (Negative); Specific Gravity Urine 1.021 (1.000-1.030); Urobilinogen Urine Negative (Negative); WBC Urine Automated 0-5 /hpf (0-5); pH Urine 5.5 (4.5-7.5)
[2023-11-15 14:37] LABS: Bacteria Urine Automated 1+ (None Seen)
--- NOTE | 2023-11-15 14:37 | XRay Report ---
XR chest 1V portable HISTORY: weakness COMPARISON: Chest 05/11/2023. FINDINGS: There are low lung volumes. No pneumothorax. No pleural effusions. The heart remains mildly enlarged. There is mild central pulmonary vascular congestion without overt edema. No acute fracture s. Left basilar linear densities persist. This favors subsegmental atelectasis or scarring. No new fo melba lung consolidations. IMPRESSION: 1. Cardiomegaly and mild congestive change. 2. Left basilar linear densities again noted. This is nonspecific but favors subsegmental atelectasis or scarring. ACT 112: Negative or not required by law. Electronically signed by: Michael Smtih M.D. 11/15/2023 2:36 PM
[2023-11-15 14:39] LABS: Mucus Urine Present (None Prsent)
[2023-11-15] MEDS: SODIUM CHLORIDE 0.9% 1,000 ML IV SCH (14:50)
--- NOTE | 2023-11-15 14:59 | Electrocardiogram Report ---
Test Reason : Blood Pressure : / mmHG Vent. Rate : 080 BPM Atrial Rate : 080 BPM P-R Int : 136 ms QRS Dur : 082 ms QT Int : 370 ms P-R-T Axes : 035 -39 022 degrees QTc Int : 426 ms Poor data quality, interpretation may be adversely affected Normal sinus rhythm Left axis deviation Moderate voltage criteria for LVH, may be normal variant ( R in aVL ) Abnormal ECG When compared with ECG of 11-MAY-2023 14:20, No significant change was found Confirmed by David Espinosa ([id number]) on 11/15/2023 2:58:48 PM Referred By: [facility] Confirmed By:Dvaid Espinosa
--- NOTE | 2023-11-15 14:59 | History & Physical Report ---
Date of Service November 15, 2023 Assessment & Plan (1) UTI (urinary tract infection): Plan: Increased lethargy and unresponsiveness x 2 days leading up to 11/14 Patient was being treated for UTI outpatient with Rocephin x 2 days Leukocytosis at 11.71 with neutrophil predominance; afebrile Lactate and procalcitonin WNL Urine culture on 11/12/2023 without E. coli resistant to ampicillin; sensitive to ertapenem HX of UTI with ESBL producing E.coli Ertapenem 1000mg IV given in the ED Will continue ertapenem 1000 mg IV q24h for now Follow blood/urine cx Acetaminophen IV as needed for pain/fever A.m. CBC, BMP, PT/INR, Mag (2) Altered mental status: Plan: Patient became nonverbal and glassy eyed shortly after an allergic reaction/angioedema to Phenergan 25 mg IM injection on 11/10 Per discussion with patient's son, this is an acute change in cognitive baseline for her; she does become confused with UTIs, but not like this Head CT revealed no acute intercranial abnormalities Phosphorous ordered, pending DDx: AMS secondary to electrolyte imbalances; drug-induced hypokinesis, mutism, or psychosis; infection; MS flare Plan is to correct electrolyte imbalances and treat UTI, then reassess If no improvement, will obtain Brain MRI w/wo contrast to assess for stroke / progression of MS (3) Hypokalemia: Plan: Severe; K 2.7 Likely secondary to poor p.o. intake K-riders 10meq x 4 given Trend BMP (4) Hypernatremia: Plan: Na 149 on arrival Trend BMP q4h x 3 Close monitoring for overcorrection; DO NOT correct by >10mmol/L in 24h Serum Osm mildly elevated at 312 Urine Osm WNL Urine Sodium WNL (5) Recurrent deep vein thrombosis (DVT): Plan: On warfarin INR therapeutic at 2.4 on arrival Hold warfarin while NPO; if patient's INR < 2.0 consider bridge to Lovenox Trend daily PT/INR (6) Dehydration: Plan: IVF resuscitation with NSS 1500mL in the ED Continue IVF (as above) (7) History of multiple sclerosis: Plan: Baseline L-sided weakness, paraplegia; bedbound at baseline Continue Copaxone 20mg SQ daily Non-formulary medication Discussed with son, and will attempt to have it brought over from [facility] PT/OT consulted to prevent deconditioning (8) Nonverbal: Plan: Newly nonverbal Hold all p.o. medications for now Aspiration precautions Speech therapy consulted (9) HTN (hypertension): Plan: Patient normally takes metoprolol tartrate 25 mg BID Will switch to metoprolol tartrate 5mg IV q6h while NPO (10) Esophageal reflux: Plan: Protonix 40mg p.o. --> 40mg IV daily Plan Disposition: Admit to PCU telemetry DNR/DNI Keep n.p.o. for now VTE PPx: On warfarin History of Present Illness Chief Complaint: Lethargy, unresponsiveness, urinary symptoms Primary Care Provider: Connie Franco is an 83-year-old female with PMH of left-sided paraplegia, MS, trigeminal neuralgia, SVT, sepsis, upper GI bleed, HLD, HTN, and recurrent DVTs. She presented via EMS from [facility] for lethargy, unresponsiveness, and glossed over her eyes on 11/14. Patient is nonverbal on arrival. Per review of EMS notes, she is normally alert, but today she was "not herself"; eyes glazed over and not responding to questioning. Patient has been on Rocephin 1000 mg IM x 3 days (started on 11/12) for a UTI. It was also noted that she had angioedema secondary to Phenergan 2 days ago. Patient is bedbound at baseline; history of MS. She is hypertensive at 174/91 with SpO2 96% on 2L NC. ED course: NSS 2500 mL IV K rider 10mEq IV Ertapenem 10 mL IV Unable to obtain ROS at time of admission. Spoke on the phone with patient's son (Victoriano) to provide update regarding admission. Patient's son reports that there has been an acute change in cognitive baseline that started shortly after the patient was given Phenergan for an upset stomach this week. He notes that he is disabled, but normally has video calls with his mother. While his mother is normally confused at times (will occasionally forget things like month/year), she has never been non-verbal before. This is not her normal response to UTIs that she has had in the past. Patient's son reports that she was complaining of an upset stomach last week, and nursing staff that she kept "jamming her fingers down her throat" to induce vomiting. He believes that an antinausea medication was given (Phenergan) which led to an allergic reaction and angioedema followed by unresponsiveness. He had a video call with her on Sunday 11/12, and she had a " stare" in her eyes and was unresponsive to questioning. Per review of patient's med list, she received Phenergan 25 mg IM injection on Friday 11/10 at 0500, and Zofran 4 mg ODT on Saturday 11/11. Per nursing staff, she was able to give her name to nursing staff earlier on arrival. Allergies Allergy/AdvReac Type Severity Reaction Status Date / Time levofloxacin [From [facility]] Allergy Unknown Unknown Verified 11/15/23 16:33 promethazine Allergy Unknown Verified 11/15/23 16:33 Home Medications Medication Instructions Recorded Confirmed Type House Shakes 1 ea PO DAILY 11/15/23 11/15/23 History Saccharomyces boulardii 250 mg 250 mg PO BID 11/15/23 11/15/23 History capsule (Florastor) acetaminophen 325 mg tablet 650 mg PO Q6 PRN Fever Or Pain 11/15/23 11/15/23 History (Tylenol) ascorbic acid (vitamin C) 1,000 mg 1 g PO AMHS 11/15/23 11/15/23 History tablet (Vitamin C) bisacodyl 10 mg rectal suppository 10 mg FL HS 11/15/23 11/15/23 History ceftriaxone 1 gram solution for 1 g IM QAM 11/15/23 11/15/23 History injection cholecalciferol (vitamin D3) 50 50 mcg PO DAILY 11/15/23 11/15/23 History mcg (2,000 unit) tablet (Vitamin D3) citalopram 10 mg tablet 10 mg PO DAILY 11/15/23 11/15/23 History cyanocobalamin (vitamin B-12) 1,000 mcg PO DAILY 11/15/23 11/15/23 History 1,000 mcg tablet (Vitamin B-12) eucalyptus oil-menthol 7 mg 1 frankie PO .Q1HR PRN Sore Throat 11/15/23 11/15/23 History lozenges (Cough Drops (with eucalyptus)) gabapentin 600 mg tablet 600 mg PO TID 11/15/23 11/15/23 History glatiramer 20 mg/mL subcutaneous 20 mg subcut QAM 11/15/23 11/15/23 History syringe (Copaxone) lidocaine HCl 10 mg/mL (1 %) 2.1 ml IM QAM 11/15/23 11/15/23 History injection solution lip protective (padimate o) 1 ea topical QPM 11/15/23 11/15/23 History lorazepam 0.5 mg tablet 0.5 mg PO Q6 PRN Anxiety 11/15/23 11/15/23 History menthol 0.44 %-zinc oxide 20.6 % 1 applic topical QS 11/15/23 11/15/23 History topical ointment (Calmoseptine) methenamine hippurate 1 gram tablet 1 g PO BID 11/15/23 11/15/23 History metoprolol tartrate 25 mg tablet 25 mg PO AMHS 11/15/23 11/15/23 History multivitamin 1 tab PO DAILY 11/15/23 11/15/23 History ondansetron 4 mg disintegrating 4 mg PO Q6 PRN Nausea 11/15/23 11/15/23 History tablet pantoprazole 40 mg tablet,delayed 40 mg PO QAM 11/15/23 11/15/23 History release potassium chloride 10 mEq 20 meq PO TID 11/15/23 11/15/23 History tablet,extended release sennosides 8.6 mg-docusate sodium 1 tab-cap PO AMHS 11/15/23 11/15/23 History 50 mg tablet (Senokot-S) tramadol 50 mg tablet 100 mg PO .TID 1 MONTH 11/15/23 11/15/23 History warfarin 5 mg tablet 5 mg PO QPM 11/15/23 11/15/23 History Past Med/Surg History Medical History Hypokalemia Depression Neurogenic bladder disorder Esophageal reflux History of depression Hx of decubitus ulcer History of closed head injury Hypoglycemia Necrotizing fasciitis Leukocytosis Endotracheally intubated Admitted to intensive care unit Encounter for pre-operative examination Abscess or cellulitis of chest wall Sepsis Catheter-associated urinary tract infection Sepsis Atrial flutter with rapid ventricular response Altered mental status DVT (deep venous thrombosis) [place] grade C esophagitis Esophagitis Thank you for allowing us to participate in the care of this patient. If you should have any further questions or concerns, don't hesitate to contact us at extension [phone] or [phone]. Esophagitis Urinary retention Constipation Fever Abnormal urinalysis SVT (supraventricular tachycardia) Paraplegia Lymphedema of left leg History of multiple sclerosis Multiple sclerosis Left-sided weakness Trigeminal neuralgia of left side of face Surgical History History of craniotomy History of incision and drainage (01/19/22) Left Breast and Chest Wall Incision Drainage and Debridement including soft tissue including muscle greater than 50cm squared(Left) - Hair Mcknight DO, FACS Family History Other Family history non-contributory Social History Smoking Status: Never smoker Second Hand Exposure: No; Do You Dip or Chew Tobacco: No; Hx Alcohol Use: No Hx Substance Use: No Preferred Language: [place] Communication Ability: Impaired Communication Ability Comment: patient was able to answer yes or no questions Associate Art Director Required: No Beliefs That Will Affect Care: None marital status: Current Living Situation: [facility] Current Living Situation Comment: Home Health Feels Safe at Home: Yes Assistive Devices: Wheelchair Review of Systems Review of Systems: See HPI above Physical Exam Physical Exam: General: Nonverbal; eyes glazed over; lethargic; is able to "blink twice" when asked if she understands what is being said to her; non-toxic appearing; well- nourished; cooperative; SpO2 96% on 2L NC HEENT: normocephalic, atraumatic; glossy eyes; PERRLA, unable to assess EOMs; patient does not open mouth on command; unable to assess patient hearing Neck: supple; no lymphadenopathy; trachea midline Skin: dry without signs of tenting; no cyanosis; no rashes, lesions, or erythema noted; bruising on the upper left chest wall besides the upper sternum CV: chest wall NTP; RRR; S1/S2 normal; no murmurs/rubs/gallops; pulses intact and symmetric at radial, DP, and PT Lungs: no acute respiratory distress; symmetrical chest wall expansion; clear breath sounds across all lung doll w/o adventitious sounds; no wheezing ABD: Soft, NTP; unclear if suprapubic tenderness to palpation; BS present; no r ebound/guarding; no distention MSK: no tics or fasciculations; no edema noted in the LEs b/l, nonerythematous; patient demonstrates the ability to squeeze her right hand with 4/5 strength, but is unable to do so in the left hand Neuro: Unable to assess for alertness and orientation; nonverbal, she does wiggle her right toes on command, unable to wiggle left toes; hyporeflexia in the LUE, LLE, and RLE; normal reflexes in the RUE; negative for cogwheeling in the RUE; unable to assess sensation Results & Data Results & Data Vital Signs (Past 12 Hours) Vital Signs Temp Pulse Pulse Resp BP BP Pulse Ox 11/15/23 14:47 63 19 174/91 H 96 11/15/23 14:02 99 11/15/23 14:02 66 18 181/97 H 99 11/15/23 13:03 66 11/15/23 13:01 36.9 C 67 19 181/91 H 97 O2 Del Method O2 Flow Rate 11/15/23 14:47 Nasal Cannula 2 11/15/23 14:02 Nasal Cannula 2 11/15/23 14:02 Nasal Cannula 2 11/15/23 13:03 11/15/23 13:01 Nasal Cannula Laboratory Results Abnormal lab results 11/15/23 11/15/23 Range/Units 13:29 Unknown WBC 11.71 H (4.8-10.8) K/ul MCHC 30.0 L (32.0-36.0) g/dL RDW Std Deviation 48.3 H (36.4-46.3) fL Neut # (Auto) 8.39 H (1.40-6.50) K/uL [place] # (Auto) 0.85 H (0.11-0.59) K/uL Sodium 149 H (136-145) mmol/L Potassium 2.7 L D (3.5-5.1) mmol/L Chloride 110 H (98-107) mmol/L BUN 27 H (6-23) mg/dl BUN/Creatinine Ratio 38.6 H (10-20) Glucose 118 H (70-99(Fasting)) mg/dl Urine Appearance Cloudy A (Clear) Urine Protein Trace H (Negative) Ur Leukocyte Esterase 1+ H (Negative) Urine RBC (Auto) 3-5 H (0-2) /hpf U Hyaline Cast (Auto) 3-5 H (0-2) /lpf U Epithel Cells (Auto) 11-20 H (0-2) /hpf Urine Bacteria (Auto) 1+ H (None Seen) Urine Mucus Present A (None Prsent) Diagnostic Findings Chest X-Ray 11/15/23 13:18 XR chest 1V portable HISTORY: weakness COMPARISON: Chest 05/11/2023. FINDINGS: There are low lung volumes. No pneumothorax. No pleural effusions. The heart remains mildly enlarged. There is mild central pulmonary vascular congestion without overt edema. No acute fractures. Left basilar linear densities persist. This favors subsegmental atelectasis or scarring. No new focal lung consolidations. IMPRESSION: 1. Cardiomegaly and mild congestive change. 2. Left basilar linear densities again noted. This is nonspecific but favors subsegmental atelectasis or scarring. ACT 112: Negative or not required by law. Electronically signed by: Michael Smith M.D. 11/15/2023 2:[address] 11/15/23 13:30 CT OF THE HEAD WITHOUT CONTRAST CLINICAL HISTORY: Confusion. COMPARISON STUDY: Head CT T May 11, 2023. CT DOSE: 1406.31 mGy.cm TECHNIQUE: Helical axial images of the head were obtained without IV contrast. Automated exposure control was utilized for the study. A dose lowering technique was utilized adhering to the principles of ALARA. FINDINGS: This exam is mildly compromised given motion artifact. No acute intracranial hemorrhage, midline shift or mass effect is present. The ventricular system is unremarkable. White matter hypodensities are unchanged and favor small vessel disease. The basal cisterns are patent. No extra-axial collections are present. There are no findings to suggest acute dural sinus thrombosis or acute territorial infarct. No significant calvarial abnormalities are present. Visualized portions of the sinuses and mastoid air cells are clear. Left retromastoid craniotomy is noted. IMPRESSION: No acute intracranial findings. No change in appearance of the brain. ACT 112: Negative or not required by law. Electronically signed by: Naga Genao M.D. 11/15/2023 1:58 PM ECG Additional Comments: ECG on arrival revealed normal sinus rhythm at 80 bpm; QTc 426 Code Status & VTE Plan Code Status DNR/DNI VTE Prophylaxis Plan VTE Prophylaxis will be ordered: Yes Supervising Physician Co-Signing Physician Notes Patient seen and examined, chart reviewed, case discussed with Michael Lucia and I agree with the assessment and plan as above except as otherwise noted Labs and images reviewed Joan is an 83-year-old female with a past history of MS with residual left- sided weakness/hemiparesis on Copaxone/gabapentin, DVT on warfarin with therapeutic INR of 2.4 on admission, hypertension, severe hypokalemia from poor p.o. intake, ESBL UTIs, past overflow diarrhea who [facility]ally 1 week of worsening mentation changes, decreased responses to questions/commands, and concern for UTI. On ER evaluation she is hypokalemic at 2.7, has a contaminated versus infected UA, is with a normal CThead, and with a leukocytosis of 11.71 with neutrophilic predominance, no granulocyte expansion, and NLR of 3.36/normoral-moderate increased stress response. Per report patient's symptoms seem to worsen after she received antiemetics including Phenergan and while patient does follow one-step commands her mutism is new in the last week and has diminished responsiveness to questions. Patient is bedbound at baseline due to MS. Was on Augmentin for ESBL UTI at baseline,swi tched to ertapenem on admission. Last ESBL E. coli infection confirmed in urine 04/2023 was resistant to amp/sulbactam although technically sensitive to amox- clav, resistant to cece quinolones and Bactrim, sensitive to ertapenem/Zosyn. At time of bedside assessment patient has increased altered mental status, lethargy more than baseline, and new mutism. She is able to follow some commands weakly wiggles toes of her right feet, but does not answer questions which is not her baseline per family. She blinks her eyes twice to indicate that she understands was being said to her, but struggles to use speech. Is very slowly able to protrude her tongue midline on command. Falls back asleep easily. Per family symptoms did seem to worsen after she was administered nausea/anticholinergic medications; she also has evidence of a potential UTI and severe metabolic derangements including hyponatremia of 149 and hypokalemia at 2.7. Labor Relations Analyst strength is intact on the right, does not activate geothermal plant manager on left or move left ankle. No R ankle movement on command on provider assessment. Diminished R/L patellar/achilles reflex, intact R biceps 2+, L biceps difficult to assess due to increased tone, ~1-2+ and does not cross the joint line. Tx potential UTI with ertapenem on follow urine cultures. She does not appear toxic/septic, does not have a significantly elevated NLR although has a chronic mild leukocytosis she does not have a left shift currently, is afebrile, with a negative procalcitonin. On admission she is volume contracted, hypernatremic, and hypokalemic. Potassium repletion has been ordered. Trend sodium with BMP every 4 hours. Phosphorus added. Serum osmolality is concentrated, urine osmolality is appropriately highly concentrated with high sodium level consistent with volume contraction and does not indicate any central/vasopressin dysregulation. will administer 1/2NSS+KCL maintenance at 100 cc/h. Do not exceed 10meq sodium change per 24 hours. If drops more than 6-8 mEq over the next 12-16 hours discontinue fluids Patient has increased neurologic deficitsand new mutism. She does have history of MS, and additionally is at risk for demyelination due to hypernatremia. There are alternative explanations for this at this time including hyponatremia, metabolic encephalopathy with infection, and electrolyte abnormalities contributing to weakness including hypokalemia ? Hypophosphatemia however she does appear to have increased right-sided weakness, new focal deficit at speech and her left eye is externally rotated confirm with some that thinks this is int ermittent at baseline and not new. --> if not progressing +MRI-B/Cspine to r/o demyelinated disease/acute MS flare/CVA. Patient's symptoms have been present for several days. PG Care Time/CCT Total # of Minutes Spent Total Time Spent with Patient: Total time spent is greater than 50% in coordination of care (as documented) at patient's floor/unit and/or counseling patient: C[place] [address] INT INP/OBS CARE 3/75MIN Patient Type Established Medical Decision Making High Complexity Diagnoses UTI (urinary tract infection) N39.0 Hematuria presence: without hematuria Urinary tract infection type: site unspecified Altered mental status R40.0 Altered mental status type: somnolence Hypokalemia E87.6 Hypernatremia E87.0 Recurrent deep vein thrombosis (DVT) I82.409 Dehydration E86.0 History of multiple sclerosis Z86.69 Nonverbal R47.01 Essential hypertension I10 Hypertension type: essential hypertension Esophageal reflux K21.9 (1) UTI (urinary tract infection) Hematuria presence: without hematuria Urinary tract infection type: site unspecified Qualified Code(s): N39.0 - Urinary tract infection, site not specified (2) Altered mental status Altered mental status type: somnolence Qualified Code(s): R40.0 - Somnolence (9) HTN (hypertension) Hypertension type: essential hypertension Qualified Code(s): I10 - Essential (primary) hypertension
[2023-11-15] MEDS: POTASSIUM CHLORIDE / WTR 10 MEQ/100 ML PLCT IV SCH (15:00)
[2023-11-15] MEDS: SODIUM CHLORIDE 0.9% 500 ML IV ONE (15:02)
[2023-11-15 15:39] LABS: INR 2.4 (0.9-1.1); Partial Thromboplastin Ratio 1.3; Partial Thromboplastin Time 36 Seconds (21-31); Prothrombin Time 24.5 Seconds (9.0-12.0)
[2023-11-15 16:08] LABS: Thyroid Stimulating Hormone 0.461 uIu/ml (0.300-4.500)
[2023-11-15 16:46] LABS: Phosphorus 2.7 mg/dl (2.5-4.9)
[2023-11-15] MEDS ORDERED: NON-FORMULARY MEDICATION SCH (17:15)
[2023-11-15 17:21] LABS: BUN Creatinine Ratio 35.7 (10-20); Calcium 8.8 mg/dl (8.6-10.3); Creatinine Clr Calc Pharmacy 60.3 ml/min; Est GFR (African American) 91.6 ml/min; Potassium 2.8 mmol/L (3.5-5.1)
[2023-11-15] MEDS ORDERED: ACETAMINOPHEN 1,000 MG/100 ML VIAL IV PRN (17:35)
[2023-11-15] MEDS: METOPROLOL TARTRATE 1 MG/ML VIAL IV SCH (17:52)
[2023-11-15] MEDS: POTASSIUM CHLORIDE 30 MEQ in SODIUM CHLORIDE 0.45 % 1,000 ML IV SCH (17:53)
[2023-11-15 21:06] LABS: BUN Creatinine Ratio 35.8 (10-20); Calcium 8.9 mg/dl (8.6-10.3); Est GFR (African American) 92.9 ml/min; Est GFR (Non-African American) 80.2 ml/min
[2023-11-15] MEDS: bisacodyL 10 MG SUPP PR SCH (22:17)
[2023-11-16] MEDS: MENTHOL-ZINC OXIDE 360 APPLN/120 GM TUBE EXT SCH (01:27)
[2023-11-16 01:29] LABS: BUN Creatinine Ratio 34.8 (10-20); Calcium 8.8 mg/dl (8.6-10.3); Est GFR (African American) 93.4 ml/min; Est GFR (Non-African American) 80.6 ml/min; Potassium 3.2 mmol/L (3.5-5.1)
[2023-11-16 07:07] LABS: INR 2.2 (0.9-1.1)
[2023-11-16 07:20] LABS: Basophils # (auto) 0.04 K/uL (0.00-0.20); Basophils % (auto) 0.3 %; Eosinophils # (auto) 0.21 K/uL (0.00-0.50); Eosinophils % (auto) 1.7 %; Hematocrit (blood only) 44.1 % (37.0-47.0); Hemoglobin 13.4 g/dl (12.0-16.0); Immature Granulocytes # (auto) 0.12 K/uL (0.01-0.20); Lymphocytes % (auto) 19.1 %; Mean Corpuscular Hemoglobin 28.5 pg (25.0-34.0); Mean Corpuscular Hgb Conc 30.4 g/dL (32.0-36.0); Mean Corpuscular Volume 93.8 fL (80.0-100.0); Mean Platelet Volume 10.5 fL (9.4-12.4); Monocytes # (auto) 0.89 K/uL (0.11-0.59); Monocytes % (auto) 7.1 %; Neutrophils # (auto) 8.88 K/uL (1.40-6.50); Neutrophils % (auto) 70.8 %; Platelet Count 266 K/uL (130-400); RDW Coefficient of Variation 13.9 % (11.5-14.5); RDW Standard Deviation 48.3 fL (36.4-46.3); White Blood Count 12.54 K/ul (4.8-10.8)
[2023-11-16 07:22] LABS: BUN Creatinine Ratio 36.1 (10-20); Calcium 8.4 mg/dl (8.6-10.3); Creatinine Clr Calc Pharmacy 69.2 ml/min; Est GFR (African American) 95.8 ml/min; Est GFR (Non-African American) 82.7 ml/min; Magnesium 1.8 mg/dl (1.7-2.4); Potassium 3.2 mmol/L (3.5-5.1)
[2023-11-16 07:25] LABS: BUN Creatinine Ratio 33.3 (10-20); Calcium 8.4 mg/dl (8.6-10.3); Est GFR (African American) 94.8 ml/min; Est GFR (Non-African American) 81.8 ml/min; Potassium 3.3 mmol/L (3.5-5.1)
--- NOTE | 2023-11-16 10:56 | Hospitalist Progress Note ---
Date of Service November 16, 2023 Assessment & Plan (1) Altered mental status: Plan: Patient became nonverbal and glassy eyed shortly after an allergic reaction/angioedema to Phenergan 25 mg IM injection on 11/10 Per discussion with patient's son, this is an acute change in cognitive baseline for her; she does become confused with UTIs but this is highly atypical presentation Head CT negative AMS likely multifactorial- most likely metabolic encephalopathy from electrolyte imbalances + UTI, possible history of dementia/MCI, lower suspicion for MS flare If no improvement tomorrow AM, will obtain brain MRI for further evaluation (2) UTI (urinary tract infection): Plan: Increased lethargy and unresponsiveness x 2 days leading up to 11/14 admission Questionable outpatient treatment failure with Rocephin- 2x days of IM Rocephin Pt not meeting SIRS criteria on admission- also negative lactate, PCT, afebrile, mild leukocytosis UCx from 11/12/23 showing E coli resistant to ampicillin, Unasyn, Bactrim. Noted hx of UTI with ESBL producing E.coli Ertapenem started on admission- upon review of previous UCx noting Rocephin- sensitive E coli, will switch back to Rocephin UCx, BCx pending Monitor CBC, BMP (3) Nonverbal: Plan: Newly nonverbal, may represent neurologic injury but more likely metabolic encephalopathy/hypoactive delirium Hold all chronic PO home medications for now, following remain held w/o option to convert to IV -Warfarin -Gabapentin -Celexa Aspiration precautions Speech therapy consulted Head CT negative for acute process (4) Hypokalemia: Plan: K 2.7 on admission Likely secondary to poor PO intake Repletion ongoing, improved to 3.3 Monitor BMP (5) Hypernatremia: Plan: Na 149 on arrival, attributed to volume contraction Serum osmolality mildly elevated at 312 Urine osmolality WNL Urine sodium WNL Fluid repletion started Stable at 147 Close monitoring for overcorrection; do not correct by >10mmol/L in 24h Monitor BMP (6) Recurrent deep vein thrombosis (DVT): Plan: On warfarin INR therapeutic at 2.4 on arrival Hold warfarin while NPO; if patient's INR < 2.0, may switch VTE ppx to Lovenox until pt can tolerate PO safely Trend daily PT/INR (7) Dehydration: Plan: IVF resuscitation with NSS 1500mL in the ED Continue IVF as above (8) History of multiple sclerosis: Plan: Baseline L-sided weakness, paraplegia; bedbound at baseline Continue Copaxone 20mg SQ daily Non-formulary medication Discussed with son, and will attempt to have it brought over [facility] PT/OT consulted to prevent deconditioning Less likely to be acute flare (9) HTN (hypertension): Plan: Patient normally takes metoprolol tartrate 25 mg BID Switched to metoprolol tartrate 5mg IV q6h on admission due to NPO Will discontinue scheduled Lopressor due to stable hemodynamics (10) Esophageal reflux: Plan: Protonix 40mg p.o. --> 40mg IV daily Plan Disposition: PCU DNR/DNI Keep NPO for now VTE PPx: On warfarin, held due to NPO and monitoring INR Admission and Anticipated Discharge Date Admission Date: November 15, 2023 Supervising Physician Co-Signing Physician Notes I personally examined the patient and verified all rider points of history and exam, discussed case, and agree with decision making with Dr Valdez No meaningful HPI review of systems. Makes eye contact some, but unreliably. Vitals noted, in general she is awake makes eye contact some but not reliably, stares blankly some. Does not appear to be in any distress. HEENT normocephalic atraumatic mucous membranes mostly moist. Cardio is regular without rubs murmurs gallops, lungs clear to auscultation bilaterally moderate spontaneous effort but no rales rhonchi or wheezes no accessory muscle use. Skin without rashes pallor or icterus. Altered mental statusthe most likely differential would be delirium (brought on by UTI, dehydration/hypernatremia, possible Phenergan side effect, probably elements of all of the above), and treating the underlying causes along with a lot of time for the delirium to clear as the current course of action. Certainly with her background history of MS, if things seem to factor in an atypical direction we will have a low threshold to get an MRI brain, but given that that does not seem to be the case yet, and given that testing (particularly testing such as MRI) can provoke delirium to a degree just because of the atypical/invasive environment it entails, we will hold off on that testi ngespecially given that MS related findings or completely unforeseen (such as stroke) would not at all be time sensitive given her initial HPI on admission. Updated son, Victoriano, who notes that he (due to his own disabilities) is not likely to be able to make it to the hospital and greatly appreciates daily updates. Subjective Acute events overnight- none. Pt examined at bedside. Unable to engage in interview due to mutism, does not respond to any commands but awake. Review of Systems Review of Systems: Per HPI/Subjective Physical Exam Physical Exam: General: Nonverbal; eyes glazed over; lethargic; does not follow commands but awake and tracks HEENT: normocephalic, atraumatic; glossy eyes; PERRLA, unable to assess EOMs; patient does not open mouth on command; unable to assess patient hearing Neck: supple; trachea midline Skin: dry without signs of tenting; no cyanosis; no rashes, lesions, or erythema noted CV: RRR; S1/S2 normal; no murmurs/rubs/gallops Lungs: no acute respiratory distress; symmetrical chest wall expansion; clear breath sounds across all lung doll w/o adventitious sounds; no wheezing ABD: Soft, NTP; pt does not react to palpation of abdomen; no rebound/guarding; no distention MSK: no tics or fasciculations; no edema noted in the LEs b/l, nonerythematous Neuro: Unable to assess for orientation; nonverbal, watches examiner but unable to respond to commands; weak distal reflexes LE b/l; negative for cogwheeling in the RUE; unable to assess sensation Results & Data Results & Data Vital Signs (Past 12 Hours) Vital Signs Temp Pulse Pulse Resp BP BP BP 11/16/23 08:01 62 166/81 H 11/16/23 07:50 36.5 C 61 17 163/78 H 11/16/23 07:46 61 163/78 H 11/16/23 03:59 62 11/16/23 03:39 161/83 H 11/16/23 02:52 36.6 C 67 20 170/87 H 11/16/23 01:52 162/81 H 11/16/23 01:34 59 L 11/16/23 01:14 69 166/85 H 11/15/23 23:23 11/15/23 23:06 36.7 C 61 18 173/91 H 11/15/23 23:05 36.8 C 72 18 165/83 H Pulse Ox O2 Del Method O2 Flow Rate 11/16/23 08:01 11/16/23 07:50 100 Nasal Cannula 2 11/16/23 07:46 11/16/23 03:59 11/16/23 03:39 11/16/23 02:52 99 Nasal Cannula 2 11/16/23 01:52 11/16/23 01:34 11/16/23 01:14 11/15/23 23:23 Nasal Cannula 2 11/15/23 23:06 99 Nasal Cannula 2 11/15/23 23:05 96 Nasal Cannula 2 (1) Altered mental status Altered mental status type: somnolence Qualified Code(s): R40.0 - Somnolence (2) UTI (urinary tract infection) Hematuria presence: without hematuria Urinary tract infection type: site unspecified Qualified Code(s): N39.0 - Urinary tract infection, site not specified (9) HTN (hypertension) Hypertension type: essential hypertension Qualified Code(s): I10 - Essential (primary) hypertension
[2023-11-16] MEDS: POTASSIUM CHLORIDE / WTR 10 MEQ/100 ML PLCT IV SCH (12:00)
[2023-11-16] MEDS: PANTOprazole 40 MG in SYRINGE 0 ML IV SCH (12:38)
[2023-11-16] MEDS: cefTRIAXone SODIUM 2,000 MG/50 ML BAG IV SCH (12:39)
[2023-11-16] MEDS ORDERED: ERTAPENEM SODIUM 1,000 MG in SYRINGE 0 ML IV SCH (14:00)
--- NOTE | 2023-11-16 15:23 | Billing Data ---
Date of Service November 16, 2023 Coding Level of Care Code 19756 SUB INP/OBS CARE
[2023-11-17 07:19] LABS: Basophils # (auto) 0.04 K/uL (0.00-0.20); Basophils % (auto) 0.4 %; Eosinophils # (auto) 0.35 K/uL (0.00-0.50); Eosinophils % (auto) 3.2 %; Hematocrit (blood only) 40.5 % (37.0-47.0); Hemoglobin 12.1 g/dl (12.0-16.0); Immature Granulocytes # (auto) 0.07 K/uL (0.01-0.20); Immature Granulocytes % (auto) 0.6 %; Lymphocytes # (auto) 2.23 K/uL (1.20-3.40); Lymphocytes % (auto) 20.7 %; Mean Corpuscular Hemoglobin 28.1 pg (25.0-34.0); Mean Corpuscular Hgb Conc 29.9 g/dL (32.0-36.0); Mean Corpuscular Volume 94.2 fL (80.0-100.0); Mean Platelet Volume 10.6 fL (9.4-12.4); Monocytes # (auto) 0.73 K/uL (0.11-0.59); Monocytes % (auto) 6.8 %; Neutrophils # (auto) 7.35 K/uL (1.40-6.50); Neutrophils % (auto) 68.3 %; Platelet Count 217 K/uL (130-400); RDW Coefficient of Variation 13.9 % (11.5-14.5); RDW Standard Deviation 47.6 fL (36.4-46.3); White Blood Count 10.77 K/ul (4.8-10.8)
[2023-11-17 07:42] LABS: BUN Creatinine Ratio 33.3 (10-20); Calcium 8.3 mg/dl (8.6-10.3); Creatinine Clr Calc Pharmacy 78.7 ml/min; Est GFR (African American) 99.7 ml/min; Magnesium 1.7 mg/dl (1.7-2.4); Potassium 3.7 mmol/L (3.5-5.1)
[2023-11-17 07:54] LABS: Prothrombin Time 20.9 Seconds (9.0-12.0)
[2023-11-17 08:37] LABS: A calco-baum cmplx NotReported Not Detected (NotDetected); Bact fragilis Not Reported Not Detected (NotDetected); Blood Culture Id Panel See PCR Comment (NotDetected); C auris Not Reported Not Detected (NotDetected); Calbicans Not Reported Not Detected (NotDetected); Candida glabrata Not Reported Not Detected (NotDetected); Candida krusei Not Reported Not Detected (NotDetected); Cneoformans/gatti Not Reported Not Detected (NotDetected); Cparapsilosis Not Reported Not Detected (NotDetected); E cloacae compx Not Reported Not Detected (NotDetected); Efaecalis Not Reported Not Detected (NotDetected); Efaecium Not Reported Not Detected (NotDetected); Enterobacterales Not Reported Not Detected (NotDetected); Escherichia coli Not Reported Not Detected (NotDetected); H influenzae Not Reported Not Detected (NotDetected); K aerogenes Not Reported Not Detected (NotDetected); Koxytoca Not Reported Not Detected (NotDetected); Kpneumoniae grp Not Reported Not Detected (NotDetected); Lmonocyt Not Reported Not Detected (NotDetected); N meningitidis Not Reported Not Detected (NotDetected); P aeruginosa Not Reported Not Detected (NotDetected); Proteus spp Not Reported Not Detected (NotDetected); Salmonella spp Not Reported Not Detected (NotDetected); Smarcescens Not Reported Not Detected (NotDetected); Staph lugdunensis Not Reported Not Detected (NotDetected); Staph spp. Not Reported DETECTED (NotDetected); Staphaureus Not Reported Not Detected (NotDetected); Staphepi Not Reported Not Detected (NotDetected); Stenmaltophilia Not Reported Not Detected (NotDetected); Strep agal(GrpB) Not Reported Not Detected (NotDetected); Strep pneum Not Reported Not Detected (NotDetected); Strep pyog (GrpA) Not Reported Not Detected (NotDetected); Strep spp Not Reported Not Detected (NotDetected)
[2023-11-17 08:40] LABS: Staphylococcus spp. DETECTED (NotDetected)
--- NOTE | 2023-11-17 08:51 | Hospitalist Progress Note ---
Date of Service November 17, 2023 Assessment & Plan (1) Altered mental status: Plan: Patient became nonverbal and glassy eyed shortly after an allergic reaction/angioedema to Phenergan 25 mg IM injection on 11/10 Per discussion with patient's son, this is an acute change in cognitive baseline for her; she does become confused with UTIs but this is highly atypical presentation Head CT negative AMS likely multifactorial- most likely metabolic encephalopathy/hypoactive delirium from electrolyte imbalances + UTI, possible history of dementia/MCI, lower suspicion for MS flare Does appear to be improving today (2) UTI (urinary tract infection): Plan: Increased lethargy and unresponsiveness x 2 days leading up to 11/14 admission Questionable outpatient treatment failure with Rocephin- 2x days of IM Rocephin Pt not meeting SIRS criteria on admission- also negative lactate, PCT, afebrile, mild leukocytosis UCx from 11/12/23 showing E coli resistant to ampicillin, Unasyn, Bactrim. Noted hx of UTI with ESBL producing E.coli Ertapenem started on admission- upon review of previous UCx noting Rocephin- sensitive E coli, switched back to Rocephin on 11/15 UCx growing E Coli BCx growing gram positive cocci in clusters in 1/4 bottles, +staphylococcus speciation PCR- likely contaminant -Deferring TTE for now given some overall clinical improvement Monitor CBC, BMP (3) Nonverbal: Plan: Newly nonverbal, may represent neurologic injury but more likely metabolic encephalopathy/hypoactive delirium Hold all chronic PO home medications for now, following remain held w/o option to convert to IV -Warfarin -Gabapentin -Celexa Aspiration precautions Speech therapy consulted Head CT negative for acute process Appears to be improving as pt did vocalize last night per nursing staff (4) Hypokalemia: Plan: K 2.7 on admission Likely secondary to poor PO intake Repletion ongoing, improved to 3.7 Monitor BMP (5) Hypernatremia: Plan: Na 149 on arrival, attributed to volume contraction Serum osmolality mildly elevated at 312 Urine osmolality WNL Urine sodium WNL Fluid repletion started, continue NSS Stable at 143 Close monitoring for overcorrection; do not correct by >10mmol/L in 24h Monitor BMP (6) Recurrent deep vein thrombosis (DVT): Plan: On warfarin INR therapeutic at 2.4 on arrival Hold warfarin while NPO; if patient's INR < 2.0, may switch VTE ppx to Lovenox until pt can tolerate PO safely Trend daily PT/INR (7) Dehydration: Plan: IVF resuscitation with NSS 1500mL in the ED Continue IVF as above (8) History of multiple sclerosis: Plan: Baseline L-sided weakness, paraplegia; bedbound at baseline Continue Copaxone 20mg SQ daily Non-formulary medication Discussed with son, and will attempt to have it brought over [facility] PT/OT consulted to prevent deconditioning Less likely to be acute flare, deferring MRI (9) HTN (hypertension): Plan: Patient normally takes metoprolol tartrate 25 mg BID Switched to metoprolol tartrate 5mg IV q6h on admission due to NPO Discontinue scheduled Lopressor on 11/15 due to stable hemodynamics (10) Esophageal reflux: Plan: Protonix 40mg p.o. --> 40mg IV daily Plan Disposition: PCU DNR/DNI Keep NPO for now VTE PPx: On warfarin, held due to NPO and monitoring INR Admission and Anticipated Discharge Date Admission Date: November 15, 2023 Supervising Physician Co-Signing Physician Notes I personally examined the patient and verified all rider points of history and exam, discussed case, and agree with decision making with Dr Vadlez Still not really meaningful HPI review of systems obtainable, but does make eye contact and tries to vocalize a little. Vitals noted, in general she awakens to physical stimuli, and then makes eye contact tries to vocalize a little but cannot really express anything meaningful. Breathing unlabored no accessory muscle use good effort. Skin without rashes pallor or icterus. Neuro shows symmetric fairly high resting tone that is may be slightly higher on the left than the right but overall a slightly higher degree of resting rigidity than in a normal person but basically equal again may be left slightly tighter than right no clonus. Altered mental statusthe most likely differential would be delirium (brought on by UTI, dehydration/hypernatremia, possible Phenergan side effect, probably elements of all of the above), and treating the underlying causes along with a lot of time for the delirium to clear as the current course of action. Certainly with her background history of MS, if things seem to vector in an atypical direction we will have a low threshold to get an MRI brain, but given that that does not seem to be the case yet, and given that testing (particularly testing such as MRI) can provoke delirium to a degree just because of the atypical/invasive environment it entails, we will hold off on that testingespecially given that MS related findings or completely unforeseen (such as stroke) would not at all be time sensitive given her initial HPI on admission. Would probably have her remain inpatient until she is able to eat and drink better, and then would [facility] Again updated son, Victoriano, who notes that he (due to his own disabilities) is not likely to be able to make it to the hospital and greatly appreciates daily updates. Subjective Acute events overnight- none. Pt examined at bedside. Unable to engage in interview due to mutism, but more interactive and alert today. Per nursing report, she was able to vocalize last night. Review of Systems Review of Systems: Per HPI/Subjective Physical Exam Physical Exam: General: Nonverbal; more alert; follows some commands HEENT: normocephalic, atraumatic; eyes no longer glossy; PERRLA, EOMs intact; patient does not open mouth on command; unable to assess patient hearing Neck: supple; trachea midline Skin: dry without signs of tenting; no cyanosis; no rashes, lesions, or erythema noted CV: RRR; S1/S2 normal; no murmurs/rubs/gallops Lungs: no acute respiratory distress; symmetrical chest wall expansion; clear breath sounds across all lung doll w/o adventitious sounds; no wheezing ABD: Soft, NTP; pt does not react to palpation of abdomen; no rebound/guarding; no distention MSK: no tics or fasciculations; no edema noted in the LEs b/l, nonerythematous Neuro: Unable to assess for orientation; nonverbal, watches examiner and responds to some commands; weak distal reflexes LE b/l; negative for cogwheeling in the RUE; unable to assess sensation Results & Data Results & Data Vital Signs (Past 12 Hours) Vital Signs Temp Pulse Pulse Resp BP BP Pulse Ox 11/17/23 07:20 36.8 C 61 20 171/85 H 100 11/17/23 03:18 36.5 C 68 22 161/84 H 98 11/17/23 02:38 71 22 98 11/17/23 00:30 67 11/17/23 00:26 68 23 97 11/16/23 23:32 36.7 C 66 19 166/89 H 99 11/16/23 21:46 68 19 97 O2 Del Method O2 Flow Rate 11/17/23 07:20 CPAP 11/17/23 03:18 CPAP 11/17/23 02:38 2 11/17/23 00:30 11/17/23 00:26 2 11/16/23 23:32 CPAP 11/16/23 21:46 2 (1) Altered mental status Altered mental status type: somnolence Qualified Code(s): R40.0 - Somnolence (2) UTI (urinary tract infection) Hematuria presence: without hematuria Urinary tract infection type: site unspecified Qualified Code(s): N39.0 - Urinary tract infection, site not s pecified (9) HTN (hypertension) Hypertension type: essential hypertension Qualified Code(s): I10 - Essential (primary) hypertension
[2023-11-17] MEDS: SODIUM CHLORIDE 0.9% 1,000 ML IV SCH (11:46)
--- NOTE | 2023-11-17 16:30 | Billing Data ---
Date of Service November 17, 2023 Coding Level of Care Code 64050 SUB INP/OBS CARE
--- NOTE | 2023-11-18 06:54 | Hospitalist Progress Note ---
"Date of Service November 18, 2023 Assessment & Plan (1) Altered mental status: Plan: Joan is an 83F w/ PMH of MS, GERD, depression, recurrent DVTs, HTN, HLD, UGIB, paraplegia, urinary retention, constipation, SVT, and lymphedema who presents for acute concern of altered mental status. AMS | Rxn to Phenergan vs UTI vs Electrolyte Abnormalities vs Dehydration - Patient presented for becoming non-verbal/glassy eyed after receiving a dose of Phenergan IM and having an allergic reaction Patient w/ hx of confusion w/ UTIs but this presentation is atypical for her (per family) - CT Head unremarkable - Ddx includes metabolic encephalopathy vs hypoactive delirium from electrolyte imbalance vs UTI Potential hx of dementia/MCI, predisposes patient to episodes of acute delirium Presentation less consistent with MS Flare - Ongoing improvement, patient now verbal, remains AO x 1 - Aspiration precautions ongoing - Speech evaluation completed - PO Medications on hold: Gabapentin, Celexa Restarted home Warfarin 11/17 given INR 2.6 and improved mental status UTI | Hx of ESBL - Hx of UTI w/ ESBL producing E. Coli - UCx 11/11 indicating E. Coli resistant to Ampicillin, Unasyn, and Bactrim Prior sensitivities to Rocephin, switched from Ertapenem to Rocephin 11/16/23 UCx 11/14 w/o bacteria growth BCx 11/14 w/ contaminant, KIRIT deferred given overall clinical improvement - Leukocytosis resolved - IVF discontinue 11/17 Recurrent DVTs | Therapeutic INR on Arrival - Anticoagulation held on presentation, therapeutic on arrival - Patient mentation improving, now able to tolerate PO medications - INR 1.6 on 11/17, restarted home Warfarin 5 mg PO QPM - Continue to follow INR Electrolyte Abnormalities | Hypokalemia, Hypernatremia - K 2.7 on admission, improved post supplementation to 3.7 K 3.0 on 11/17, K rider provided - Na 149 on admission, likely secondary to volume contraction Now stable at 140, IVF held 11/17 - Recheck BMP Chronic Conditions - MS: L sided weakness and paraplegia, bedbound at baseline, continue Capaxone, PT/OT consulted - HTN: Metoprolol use as outpatient, Lopressor used inpatient while NPO, held on 11/15 for stable hemodynamics - GERD: Continue Protonix Disposition: PCU Code: DNR/DNI FENGI: Speech eval complete, Regular pureed diet ongoing VTE PPx: Restart home Warfarin 11/17 (2) UTI (urinary tract infection): (3) Nonverbal: (4) Hypokalemia: (5) Hypernatremia: (6) Recurrent deep vein thrombosis (DVT): (7) Dehydration: (8) History of multiple sclerosis: (9) HTN (hypertension): (10) Esophageal reflux: Admission and Anticipated Discharge Date Admission Date: November 15, 2023 Supervising Physician Co-Signing Physician Notes Attending Physician Supervision Note: I independently interviewed and examined the patient and verified the rider history and physical, reviewed labs and image studies and agree with findings and care plan noted above. Metabolic encephalopathy - multifactorial - medication, infection, electrolyte abnormality. -Mentation has cleared. -now on regular diet UTI - E coli - rocephin. resume home meds anticipate [facility] to [facility] am. Subjective 11/18/23: Patient sleeping comfortably in bed upon arrival, aroused quickly to voice. Smiled upon awakening. Patient AO x 1 but appropriately responsive to questions. She notes no pain or discomfort. She denies any chest pain, dyspnea, nausea, emesis, headaches, visual disturbance, or bowel/bladder changes. Additional history limited by patient's mental status, though largely more alert to conversation. Physical Exam Physical Exam: Gen: NAD, AO x 1, verbal/pleasant, follows simple commands HEENT: NCAT, supple, no LAD, no thyromegaly, no JVD Resp:Non-labored, no wheezing/rhonchi/rales, CTAB CV:RRR, normal S1/S2, no M/R/G Abd: Soft, non-distended, no TTP, normoactive bowels, no masses Extr: 2+ dp bilaterally, no edema Skin: No rashes lesions or erythema Results & Data Results & Data Vital Signs (Past 12 Hours) Vital Signs Temp Pulse Pulse Resp BP Pulse Ox O2 Del Method 11/18/23 02:44 36.9 C 67 20 160/78 H 100 BiPAP 11/18/23 02:20 65 15 96 11/17/23 23:41 83 11/17/23 22:33 37.1 C 78 20 97 BiPAP 11/17/23 22:00 150/85 H 11/17/23 21:59 24 96 11/17/23 20:36 Nasal Cannula 11/17/23 19:32 36.9 C 89 25 H 136/108 H 95 Room Air O2 Flow Rate 11/18/23 02:44 11/18/23 02:20 2 11/17/23 23:41 11/17/23 22:33 11/17/23 22:00 11/17/23 21:59 2 11/17/23 20:36 2 11/17/23 19:32 Resident Activity Tracking Resident Involvement: Resident Care Provided Care Provided: Adult Hospital Medicine (1) Altered mental status Altered mental status type: somnolence Qualified Code(s): R40.0 - Somnolence (2) UTI (urinary tract infection) Hematuria presence: without hematuria Urinary tract infection type: site unspecified Qualified Code(s): N39.0 - Urinary tract infection, site not specified (9) HTN (hypertension) Hypertension type: essential hypertension Qualified Code(s): I10 - Essential (primary) hypertension"
[2023-11-18 07:37] LABS: Basophils # (auto) 0.04 K/uL (0.00-0.20); Basophils % (auto) 0.4 %; Eosinophils # (auto) 0.26 K/uL (0.00-0.50); Eosinophils % (auto) 2.5 %; Hematocrit (blood only) 39.7 % (37.0-47.0); Hemoglobin 12.5 g/dl (12.0-16.0); Immature Granulocytes # (auto) 0.11 K/uL (0.01-0.20); Immature Granulocytes % (auto) 1.1 %; Lymphocytes # (auto) 2.04 K/uL (1.20-3.40); Lymphocytes % (auto) 19.9 %; Mean Corpuscular Hgb Conc 31.5 g/dL (32.0-36.0); Mean Corpuscular Volume 92.1 fL (80.0-100.0); Mean Platelet Volume 10.8 fL (9.4-12.4); Monocytes # (auto) 0.66 K/uL (0.11-0.59); Monocytes % (auto) 6.4 %; Neutrophils # (auto) 7.16 K/uL (1.40-6.50); Neutrophils % (auto) 69.7 %; Platelet Count 201 K/uL (130-400); RDW Coefficient of Variation 13.5 % (11.5-14.5); RDW Standard Deviation 46.4 fL (36.4-46.3); Red Blood Count 4.31 M/uL (4.20-5.40); White Blood Count 10.27 K/ul (4.8-10.8)
[2023-11-18 07:58] LABS: BUN Creatinine Ratio 26.4 (10-20); Creatinine Clr Calc Pharmacy 80.5 ml/min; Est GFR (African American) 100.3 ml/min; Est GFR (Non-African American) 86.6 ml/min
[2023-11-18 08:03] LABS: INR 1.6 (0.9-1.1); Prothrombin Time 16.7 Seconds (9.0-12.0)
[2023-11-18] MEDS ORDERED: ENOXAPARIN 1 MG/KG SQ SCH (08:30)
[2023-11-18] MEDS: POTASSIUM CHLORIDE / WTR 10 MEQ/100 ML PLCT IV SCH ×2 (10:31→19:58)
[2023-11-18] MEDS: ENOXAPARIN 100 MG/1ML SYR SQ SCH (10:32)
[2023-11-18 14:52] LABS: BUN Creatinine Ratio 23.6 (10-20); Calcium 8.3 mg/dl (8.6-10.3); Creatinine Clr Calc Pharmacy 77.6 ml/min; Est GFR (African American) 99.1 ml/min; Est GFR (Non-African American) 85.5 ml/min; Potassium 3.2 mmol/L (3.5-5.1)
[2023-11-18] MEDS: WARFARIN SOD 5 MG TAB PO SCH (16:50)
[2023-11-18 22:22] LABS: BUN Creatinine Ratio 25.4 (10-20); Calcium 8.5 mg/dl (8.6-10.3); Creatinine Clr Calc Pharmacy 72.3 ml/min; Est GFR (African American) 96.9 ml/min; Est GFR (Non-African American) 83.6 ml/min; Potassium 3.3 mmol/L (3.5-5.1)
[2023-11-19 02:36] LABS: Cdiff Toxin B Gene (2yr or >) Positive Cdiff Gene (Neg)
[2023-11-19 02:37] LABS: Cdiff Antigen Positive; Cdiff Toxin A+B Negative Cdiff Toxin (Negative)
[2023-11-19 06:31] LABS: Hematocrit (blood only) 38.6 % (37.0-47.0); Hemoglobin 12.4 g/dl (12.0-16.0); Mean Corpuscular Hgb Conc 32.1 g/dL (32.0-36.0); Mean Corpuscular Volume 90.2 fL (80.0-100.0); Mean Platelet Volume 11.3 fL (9.4-12.4); Platelet Count 218 K/uL (130-400); RDW Coefficient of Variation 13.9 % (11.5-14.5); RDW Standard Deviation 45.1 fL (36.4-46.3); Red Blood Count 4.28 M/uL (4.20-5.40)
[2023-11-19 07:01] LABS: INR 1.3 (0.9-1.1); Prothrombin Time 13.6 Seconds (9.0-12.0)
[2023-11-19 07:09] LABS: BUN Creatinine Ratio 24.5 (10-20); Calcium 8.2 mg/dl (8.6-10.3); Creatinine Clr Calc Pharmacy 80.1 ml/min; Est GFR (African American) 100.3 ml/min; Est GFR (Non-African American) 86.6 ml/min; Potassium 3.4 mmol/L (3.5-5.1)
--- NOTE | 2023-11-19 07:51 | Hospitalist Progress Note ---
"Date of Service November 19, 2023 Assessment & Plan (1) Altered mental status: Plan: Joan is an 83F w/ PMH of MS, GERD, depression, recurrent DVTs, HTN, HLD, UGIB, paraplegia, urinary retention, constipation, SVT, and lymphedema who presents for acute concern of altered mental status. AMS | Rxn to Phenergan vs UTI vs Electrolyte Abnormalities vs Dehydration - Patient presented for becoming non-verbal/glassy eyed after receiving a dose of Phenergan IM and having an allergic reaction Patient w/ hx of confusion w/ UTIs but this presentation is atypical for her (per family) - CT Head unremarkable - Ddx includes metabolic encephalopathy vs hypoactive delirium from electrolyte imbalance vs UTI Potential hx of dementia/MCI, predisposes patient to episodes of acute delirium Presentation less consistent with MS Flare - Ongoing improvement, patient now verbal, remains AO x 1 - Aspiration precautions ongoing - Speech evaluation completed - PO Medications on hold: Gabapentin, Celexa Restarted home Warfarin 11/17 given INR 2.6 and improved mental status - Patient's mental status continues to wax-wane, potentially patient's baseline +/- superimposed delirium Obtaining collateral from patient's family No evidence of infection or provoking factors for change in mental status today UTI | Hx of ESBL - Hx of UTI w/ ESBL producing E. Coli - UCx 11/11 indicating E. Coli resistant to Ampicillin, Unasyn, and Bactrim Prior sensitivities to Rocephin, switched from Ertapenem to Rocephin 11/16/23 UCx 11/14 w/o bacteria growth BCx 11/14 w/ contaminant, KIRIT deferred given overall clinical improvement - Antibiotics ongoing, no leukocytosis, hemodynamically stable Recurrent DVTs | Therapeutic INR on Arrival - Anticoagulation held on presentation, therapeutic on arrival - INR 1.3 on 11/18, continue home Warfarin 5 mg PO QPM Adjust dose to therapeutic INR if remaining low - Continue to follow INR Electrolyte Abnormalities | Hypokalemia, Hypernatremia - K 2.7 on admission, ongoing supplementation K 3.4 on 11/18, K rider provided - Na 149 on admission, likely secondary to volume contraction Now stable at 140, IVF held 11/17 - Follow BMP Chronic Conditions - MS: L sided weakness and paraplegia, bedbound at baseline, continue Capaxone, PT/OT consulted - HTN: Metoprolol use as outpatient, Lopressor used inpatient while NPO, held on 11/15 for stable hemodynamics - GERD: Continue Protonix Disposition: PCU Code: DNR/DNI FENGI: Speech eval complete, Regular pureed diet ongoing VTE PPx: Restart home Warfarin 11/17 (2) UTI (urinary tract infection): (3) Nonverbal: (4) Hypokalemia: (5) Hypernatremia: (6) Recurrent deep vein thrombosis (DVT): (7) Dehydration: (8) History of multiple sclerosis: (9) HTN (hypertension): (10) Esophageal reflux: Admission and Anticipated Discharge Date Admission Date: November 15, 2023 Supervising Physician Co-Signing Physician Notes Attending Physician Supervision Note: I independently interviewed and examined the patient and verified the rider history and physical, reviewed labs and image studies and agree with findings and care plan noted above. less responsive this am but comfortable in bed. No distress. CTA anterior lung field. Metabolic encephalopathy - multifactorial - medication, infection, electrolyte abnormality. -Mentation waxing and waning. suspect this as baseline leading to poor PO intake and related complication. -will follow and consider discussing goal of care with family. UTI - E coli - rocephin (start 11/15) resumed home meds Subjective 11/19/23: Patient sleeping comfortably in bed upon arrival, minimally arousable to voice. Response to questions with soft moans. Minimal HPI obtained due to change in mental status. Physical Exam Physical Exam: Gen: NAD, AO x ?, non-verbal, unable to follow commands HEENT: NCAT, supple, no LAD, no thyromegaly, no JVD Resp:Non-labored, no wheezing/rhonchi/rales, CTAB CV:RRR, normal S1/S2, no M/R/G Abd: Soft, non-distended, no TTP, normoactive bowels, no masses Extr: 2+ dp bilaterally, no edema Skin: No rashes lesions or erythema Results & Data Results & Data Vital Signs (Past 12 Hours) Vital Signs Temp Pulse Pulse Resp BP Pulse Ox O2 Del Method 11/19/23 03:51 36.8 C 74 18 154/82 H 95 Room Air 11/19/23 00:07 75 21 97 11/18/23 23:24 87 11/18/23 23:17 37.4 C 79 20 154/81 H 95 Room Air 11/18/23 20:00 Nasal Cannula O2 Flow Rate 11/19/23 03:51 11/19/23 00:07 2 11/18/23 23:24 11/18/23 23:17 11/18/23 20:00 2 Resident Activity Tracking Resident Involvement: Resident Care Provided Care Provided: Adult Hospital Medicine (1) Altered mental status Altered mental status type: somnolence Qualified Code(s): R40.0 - Somnolence (2) UTI (urinary tract infection) Hematuria presence: without hematuria Urinary tract infection type: site unspecified Qualified Code(s): N39.0 - Urinary tract infection, site not specified (9) HTN (hypertension) Hypertension type: essential hypertension Qualified Code(s): I10 - Essential (primary) hypertension"
[2023-11-19] MEDS: POTASSIUM CHLORIDE / WTR 10 MEQ/100 ML PLCT IV ONE (11:49)
[2023-11-19] MEDS: GLATIRAMER ACETATE SQ SCH (15:50)
[2023-11-20 06:43] LABS: Hematocrit (blood only) 39.5 % (37.0-47.0); Hemoglobin 12.7 g/dl (12.0-16.0); Mean Corpuscular Hemoglobin 28.6 pg (25.0-34.0); Mean Corpuscular Hgb Conc 32.2 g/dL (32.0-36.0); Mean Platelet Volume 11.6 fL (9.4-12.4); Platelet Count 211 K/uL (130-400); Red Blood Count 4.44 M/uL (4.20-5.40); White Blood Count 11.19 K/ul (4.8-10.8)
[2023-11-20 07:00] LABS: BUN Creatinine Ratio 20.4 (10-20); Calcium 8.6 mg/dl (8.6-10.3); Creatinine Clr Calc Pharmacy 79.4 ml/min; Est GFR (African American) 99.7 ml/min; Potassium 3.4 mmol/L (3.5-5.1)
--- NOTE | 2023-11-20 07:15 | Hospitalist Progress Note ---
"Date of Service November 20, 2023 Assessment & Plan (1) Altered mental status: Plan: Joan is an 83F w/ PMH of MS, GERD, depression, recurrent DVTs, HTN, HLD, UGIB, paraplegia, urinary retention, constipation, SVT, and lymphedema who presents for acute concern of altered mental status. AMS | Rxn to Phenergan vs UTI vs Electrolyte Abnormalities vs Dehydration - Patient presented for becoming non-verbal/glassy eyed after receiving a dose of Phenergan IM and having an allergic reaction Patient w/ hx of confusion w/ UTIs but this presentation is atypical for her (per family) - CT Head unremarkable - Ddx includes metabolic encephalopathy vs hypoactive delirium from electrolyte imbalance vs UTI Potential hx of dementia/MCI, predisposes patient to episodes of acute delirium Presentation less consistent with MS Flare - Ongoing improvement, patient now verbal, remains AO x 1 - Aspiration precautions ongoing - Speech evaluation completed - PO Medications on hold: Gabapentin, Celexa Restarted home Warfarin 11/17 given INR 2.6 and improved mental status - Patient's mental status continues to wax-wane, potentially patient's baseline +/- superimposed delirium Obtaining collateral from patient's family who notes this is significantly different from baseline No evidence of infection or provoking factors for change in mental status Patient approaching medical stability for discharge back to nursing facility UTI | Hx of ESBL - Hx of UTI w/ ESBL producing E. Coli - UCx 11/11 indicating E. Coli resistant to Ampicillin, Unasyn, and Bactrim Prior sensitivities to Rocephin, switched from Ertapenem to Rocephin 11/16/23 UCx 11/14 w/o bacteria growth BCx 11/14 w/ contaminant, KIRIT deferred given overall clinical improvement - Antibiotics ongoing, no leukocytosis, hemodynamically stable Recurrent DVTs | Therapeutic INR on Arrival - Anticoagulation held on presentation, therapeutic on arrival - INR 1.4 on 11/19, continue home Warfarin 5 mg PO QPM Adjust dose to therapeutic INR if remaining low - Continue to follow INR Electrolyte Abnormalities | Hypokalemia, Hypernatremia, Hypomagnesemia - K 2.7 on admission, ongoing supplementation K 3.4 on 11/19, K rider provided - Na 149 on admission, likely secondary to volume contraction Now stable at 140, IVF held 11/17 - Mg 1.6 on 5/1, repleted - Follow BMP Chronic Conditions - MS: L sided weakness and paraplegia, bedbound at baseline, continue Capaxone, PT/OT consulted - HTN: Metoprolol use as outpatient, Lopressor used inpatient while NPO, held on 11/15 for stable hemodynamics - GERD: Continue Protonix Disposition: PCU Code: DNR/DNI FENGI: Speech eval complete, Regular pureed diet ongoing VTE PPx: Restart home Warfarin 11/17 (2) UTI (urinary tract infection): (3) Nonverbal: (4) Hypokalemia: (5) Hypernatremia: (6) Recurrent deep vein thrombosis (DVT): (7) Dehydration: (8) History of multiple sclerosis: (9) HTN (hypertension): (10) Esophageal reflux: Admission and Anticipated Discharge Date Admission Date: November 15, 2023 Supervising Physician Co-Signing Physician Notes Attending Physician Supervision Note: I independently interviewed and examined the patient and verified the rider history and physical, reviewed labs and image studies and agree with findings and care plan noted above. Per nursing - more alert later in the day. Metabolic encephalopathy - multifactorial - medication, infection, electrolyte abnormality. -Mentation improving and almost at baseline. -To consider goal of care discussion on discharge. UTI - E coli - rocephin (start 11/15) resumed home meds Anticipate d/c in am. Subjective 11/20/23: Patient resting in bed comfortably upon arrival. Arousable to voice. occasional words. Excitement when talking about her son. Otherwise, no meaningful HPI. Responding to simple commands. Physical Exam Physical Exam: Gen: NAD, AO x ?, non-verbal, will squeeze hand on command HEENT: NCAT, supple, no LAD, no thyromegaly, no JVD Resp:Non-labored, no wheezing/rhonchi/rales, CTAB CV:RRR, normal S1/S2, no M/R/G Abd: Soft, non-distended, no TTP, normoactive bowels, no masses Extr: 2+ dp bilaterally, no edema Skin: No rashes lesions or erythema Results & Data Results & Data Vital Signs (Past 12 Hours) Vital Signs Temp Pulse Pulse Resp BP BP Pulse Ox 11/20/23 07:07 36.8 C 80 18 163/91 H 93 11/20/23 03:00 36.4 C L 62 21 139/62 95 11/20/23 00:00 83 11/19/23 23:00 37.1 C 77 26 H 138/65 93 11/19/23 20:00 O2 Del Method 11/20/23 07:07 Room Air 11/20/23 03:00 Room Air 11/20/23 00:00 11/19/23 23:00 Room Air 11/19/23 20:00 Room Air Resident Activity Tracking Resident Involvement: Resident Care Provided Care Provided: Adult Hospital Medicine (1) Altered mental status Altered mental status type: somnolence Qualified Code(s): R40.0 - Somnolence (2) UTI (urinary tract infection) Hematuria presence: without hematuria Urinary tract infection type: site unspecified Qualified Code(s): N39.0 - Urinary tract infection, site not specified (9) HTN (hypertension) Hypertension type: essential hypertension Qualified Code(s): I10 - Essential (primary) hypertension"
[2023-11-20 07:17] LABS: INR 1.4 (0.9-1.1); Prothrombin Time 15.1 Seconds (9.0-12.0)
[2023-11-20 08:28] LABS: Magnesium 1.6 mg/dl (1.7-2.4)
[2023-11-20] MEDS: POTASSIUM CHLORIDE / WTR 10 MEQ/100 ML PLCT IV SCH (09:38)
[2023-11-20] MEDS: MAGNESIUM SULFATE / D5W 1 GM/100 ML BAG IV SCH (10:49)
[2023-11-20] MEDS: ACETAMINOPHEN 1,000 MG/100 ML VIAL IV STA (21:22)
[2023-11-21 06:42] LABS: Hemoglobin 12.8 g/dl (12.0-16.0); Mean Corpuscular Hemoglobin 28.8 pg (25.0-34.0); Mean Corpuscular Volume 89.9 fL (80.0-100.0); Mean Platelet Volume 11.4 fL (9.4-12.4); Platelet Count 199 K/uL (130-400); RDW Coefficient of Variation 14.3 % (11.5-14.5); RDW Standard Deviation 46.9 fL (36.4-46.3); Red Blood Count 4.45 M/uL (4.20-5.40); White Blood Count 8.08 K/ul (4.8-10.8)
[2023-11-21 06:53] LABS: INR 1.5 (0.9-1.1); Prothrombin Time 15.8 Seconds (9.0-12.0)
--- NOTE | 2023-11-21 06:53 | Discharge Summary ---
Date of Service November 21, 2023 Admission HPI Per Admitting Provider Joan is an 83-year-old female with PMH of left-sided paraplegia, MS, trigeminal neuralgia, SVT, sepsis, upper GI bleed, HLD, HTN, and recurrent DVTs. She presented via EMS from [facility] for lethargy, unresponsiveness, and glossed over her eyes on 11/14. Patient is nonverbal on arrival. Per review of EMS notes, she is normally alert, but today she was "not herself"; eyes glazed over and not responding to questioning. Patient has been on Rocephin 1000 mg IM x 3 days (started on 11/12) for a UTI. It was also noted that she had angioedema secondary to Phenergan 2 days ago. Patient is bedbound at baseline; history of MS. She is hypertensive at 174/91 with SpO2 96% on 2L NC. ED course: NSS 2500 mL IV K rider 10mEq IV Ertapenem 10 mL IV Unable to obtain ROS at time of admission. Spoke on the phone with patient's son (Victoriano) to provide update regarding admission. Patient's son reports that there has been an acute change in cognitive baseline that started shortly after the patient was given Phenergan for an upset stomach this week. He notes that he is disabled, but normally has video calls with his mother. While his mother is normally confused at times (will occasionally forget things like month/year), she has never been non-verbal before. This is not her normal response to UTIs that she has had in the past. Patient's son reports that she was complaining of an upset stomach last week, and nursing staff that she kept "jamming her fingers down her throat" to induce vomiting. He believes that an antinausea medication was given (Phenergan) which led to an allergic reaction and angioedema followed by unresponsiveness. He had a video call with her on Sunday 11/12, and she had a " stare" in her eyes and was unresponsive to questioning. Per review of patient's med list, she received Phenergan 25 mg IM injection on Friday 11/10 at 0500, and Zofran 4 mg ODT on Saturday 11/11. Per nursing staff, she was able to give her name to nursing staff earlier on arrival. Admission Exam Per Admitting Provider General: Nonverbal; eyes glazed over; lethargic; is able to "blink twice" when asked if she understands what is being said to her; non-toxic appearing; well- nourished; cooperative; SpO2 96% on 2L NC HEENT: normocephalic, atraumatic; glossy eyes; PERRLA, unable to assess EOMs; patient does not open mouth on command; unable to assess patient hearing Neck: supple; no lymphadenopathy; trachea midline Skin: dry without signs of tenting; no cyanosis; no rashes, lesions, or erythema noted; bruising on the upper left chest wall besides the upper sternum CV: chest wall NTP; RRR; S1/S2 normal; no murmurs/rubs/gallops; pulses intact and symmetric at radial, DP, and PT Lungs: no acute respiratory distress; symmetrical chest wall expansion; clear breath sounds across all lung doll w/o adventitious sounds; no wheezing ABD: Soft, NTP; unclear if suprapubic tenderness to palpation; BS present; no rebound/guarding; no distention MSK: no tics or fasciculations; no edema noted in the LEs b/l, nonerythematous; patient demonstrates the ability to squeeze her right hand with 4/5 strength, but is unable to do so in the left hand Neuro: Unable to assess for alertness and orientation; nonverbal, she does wiggle her right toes on command, unable to wiggle left toes; hyporeflexia in the LUE, LLE, and RLE; normal reflexes in the RUE; negative for cogwheeling in the RUE; unable to assess sensation Principal Diagnosis Altered Mental Status Discharge Exam Gen: NAD, AO x ?, verbal, will squeeze hand on command HEENT: NCAT, supple, no LAD, no thyromegaly, no JVD Resp:Non-labored, no wheezing/rhonchi/rales, CTAB CV:RRR, normal S1/S2, no M/R/G Abd: Soft, non-distended, no TTP, normoactive bowels, no masses Extr: 2+ dp bilaterally, no edema Skin: No rashes lesions or erythema Discharge Data Allergies Allergy/AdvReac Type Severity Reaction Status Date / Time levofloxacin [From Levaquin] Allergy Unknown Unknown Verified 11/15/23 16:33 promethazine Allergy Unknown Verified 11/15/23 16:33 Consultations 11/15/23 14:50 ED Decision to Admit Stat Ordered Studies 11/15/23 13:30 CT head/brain wo con Stat Hospital Course (1) Altered mental status: Joan is an 83F w/ PMH of MS, GERD, depression, recurrent DVTs, HTN, HLD, UGIB, paraplegia, urinary retention, constipation, SVT, and lymphedema who presents for acute concern of altered mental status. AMS | Rxn to Phenergan vs UTI vs Electrolyte Abnormalities vs Dehydration - Patient presented for becoming non-verbal/glassy eyed after receiving a dose of Phenergan IM and having an allergic reaction Patient w/ hx of confusion w/ UTIs but this presentation is atypical for her (per family) - CT Head unremarkable - Ddx includes metabolic encephalopathy vs hypoactive delirium from electrolyte imbalance vs UTI Potential hx of dementia/MCI, predisposes patient to episodes of acute delirium Presentation less consistent with MS Flare - Ongoing improvement, patient now verbal, remains AO x 1 - Aspiration precautions ongoing - Speech evaluation completed - PO Medications on hold: Gabapentin, Celexa Restarted home Warfarin 11/17 given INR 2.6 and improved mental status - Patient's mental status continues to wax-wane, potentially patient's baseline +/- superimposed delirium Obtaining collateral from patient's family who notes this is significantly different from baseline No evidence of infection or provoking factors for change in mental status Patient approaching medical stability for discharge back to nursing facility UTI | Hx of ESBL - Hx of UTI w/ ESBL producing E. Coli - UCx 11/11 indicating E. Coli resistant to Ampicillin, Unasyn, and Bactrim Prior sensitivities to Rocephin, switched from Ertapenem to Rocephin 11/16/23 UCx 11/14 w/o bacteria growth BCx 11/14 w/ contaminant, KIRIT deferred given overall clinical improvement - Completed Abx course, no leukocytosis, hemodynamically stable Recurrent DVTs | Therapeutic INR on Arrival - Anticoagulation held on presentation, therapeutic on arrival - INR 1.5 on 11/20, continue home Warfarin 5 mg PO QPM - Continue to follow INR Electrolyte Abnormalities | Hypokalemia, Hypernatremia, Hypomagnesemia - K 2.7 on admission, ongoing supplementation K 3.3 on 11/20, K rider provided - Na 149 on admission, likely secondary to volume contraction Now stable at 140, IVF held 11/17 - Mg 1.6 on 11/19, repleted - Follow BMP as outpatient, replete as indicated Chronic Conditions - MS: L sided weakness and paraplegia, bedbound at baseline, continue Capaxone, PT/OT consulted - HTN: Metoprolol use as outpatient, Lopressor used inpatient while NPO, held on 11/15 for stable hemodynamics - GERD: Continue Protonix Disposition: PCU Code: DNR/DNI FENGI: Speech eval complete, Regular pureed diet ongoing VTE PPx: Restart home Warfarin 11/17 (2) UTI (urinary tract infection): (3) Nonverbal: (4) Hypokalemia: (5) Hypernatremia: (6) Recurrent deep vein thrombosis (DVT): (7) Dehydration: (8) History of multiple sclerosis: (9) HTN (hypertension): (10) Esophageal reflux: Total Time Total Time Spent Total Time Spent (In Minutes): <30 Discharge Plan Discharge Items Patient Disposition: Transfer Assisted Fac Reason For Visit: GLOSSY EYES, LETHARGY, NON-VERBAL, UTI Discharge Diagnosis: Altered Mental Status Activity: Per Instructions section Non-emergency contact: Primary Care Provider Call non-emergency contact if: you have any medication questions and your symptoms worsen Follow-up/Referrals: [facility] [Primary Care Provider] - Diet: Heart Healthy Addtl Attending Provider Instructions: Joan is an 83F w/ PMH of MS, GERD, depression, recurrent DVTs, HTN, HLD, UGIB, paraplegia, urinary retention, constipation, SVT, and lymphedema who presents for acute concern of altered mental status. AMS | Rxn to Phenergan vs UTI vs Electrolyte Abnormalities vs Dehydration - Patient presented for becoming non-verbal/glassy eyed after receiving a dose of Phenergan IM and having an allergic reaction Patient w/ hx of confusion w/ UTIs but this presentation is atypical for her (per family) - CT Head unremarkable - Ddx includes metabolic encephalopathy vs hypoactive delirium from electrolyte imbalance vs UTI Potential hx of dementia/MCI, predisposes patient to episodes of acute delirium Presentation less consistent with MS Flare - Ongoing improvement, patient now verbal, remains AO x 1 - Aspiration precautions ongoing - Speech evaluation completed - PO Medications on hold: Gabapentin, Celexa Restarted home Warfarin 11/17 given INR 2.6 and improved mental status - Patient's mental status continues to wax-wane, potentially patient's baseline +/- superimposed delirium Obtaining collateral from patient's family who notes this is significantly different from baseline No evidence of infection or provoking factors for change in mental status Patient approaching medical stability for discharge back to nursing facility UTI | Hx of ESBL - Hx of UTI w/ ESBL producing E. Coli - UCx 11/11 indicating E. Coli resistant to Ampicillin, Unasyn, and Bactrim Prior sensitivities to Rocephin, switched from Ertapenem to Rocephin 11/16/23 UCx 11/14 w/o bacteria growth BCx 11/14 w/ contaminant, KIRIT deferred given overall clinical improvement - Completed Abx course, no leukocytosis, hemodynamically stable Recurrent DVTs | Therapeutic INR on Arrival - Anticoagulation held on presentation, therapeutic on arrival - INR 1.5 on 11/20, continue home Warfarin 5 mg PO QPM - Continue to follow INR Electrolyte Abnormalities | Hypokalemia, Hypernatremia, Hypomagnesemia - K 2.7 on admission, ongoing supplementation K 3.3 on 11/20, K rider provided - Na 149 on admission, likely secondary to volume contraction Now stable at 140, IVF held 11/17 - Mg 1.6 on 11/19, repleted - Follow BMP as outpatient, replete as indicated Chronic Conditions - MS: L sided weakness and paraplegia, bedbound at baseline, continue Capaxone, PT/OT consulted - HTN: Metoprolol use as outpatient, Lopressor used inpatient while NPO, held on 11/15 for stable hemodynamics - GERD: Continue Protonix Disposition: PCU Code: DNR/DNI FENGI: Speech eval complete, Regular pureed diet ongoing VTE PPx: Restart home Warfarin 11/17 Pending Studies at Discharge: No Stand-Alone Forms: My [employer] Skilled Items Patient informed of condition?: Yes DNR: Yes Discharge Level of Care: Skilled Communicable Disease: No Discharge Prognosis: Stable Lines: None Urinary Catheter: Yes Medications and DC Order Prescriptions: Continued multivitamin Tablet 1 tab PO DAILY lidocaine HCl 10 mg/mL (1 %) solution 2.1 ml IM QAM Rx Instructions: for 10 days, use to dilute rocephin ascorbic acid (vitamin C) [Vitamin C] 1,000 mg Tablet 1 g PO AMHS acetaminophen [Tylenol] 325 mg Tablet 650 mg PO Q6 PRN (Reason: Fever Or Pain) gabapentin 600 mg tablet 600 mg PO TID citalopram 10 mg tablet 10 mg PO DAILY sennosides-docusate sodium [Senokot-S] 8.6-50 mg Tablet 1 tab-cap PO AMHS cyanocobalamin (vitamin B-12) [Vitamin B-12] 1,000 mcg Tablet 1,000 mcg PO DAILY potassium chloride 10 mEq tablet extended release 20 meq PO TID tramadol 50 mg tablet 100 mg PO .TID 1 MONTH Rx Instructions: stop @ 1630 ceftriaxone 1 gram recon soln 1 g IM QAM Rx Instructions: 1st dose given 11/13/23, give for 10 days, use lidocaine to dilute methenamine hippurate 1 gram tablet 1 g PO BID lorazepam 0.5 mg tablet 0.5 mg PO Q6 PRN (Reason: Anxiety) bisacodyl 10 mg Suppository 10 mg NH HS pantoprazole 40 mg tablet,delayed release (DR/EC) 40 mg PO QAM warfarin 5 mg Tablet 5 mg PO QPM ondansetron 4 mg tablet,disintegrating 4 mg PO Q6 PRN (Reason: Nausea) Rx Instructions: For 1 week, start 11/11/23 Saccharomyces boulardii [Florastor] 250 mg Capsule 250 mg PO BID metoprolol tartrate 25 mg tablet 25 mg PO AMHS Cough Drops (with eucalyptus) 7 mg Lozenge 1 frankie PO .Q1HR PRN (Reason: Sore Throat) cholecalciferol (vitamin D3) [Vitamin D3] 50 mcg (2,000 unit) Tablet 50 mcg PO DAILY menthol-zinc oxide [Calmoseptine] 0.44-20.6 % Ointment 1 applic TOPICAL QS Rx Instructions: Applt to buttocks, left posterior thigh lip protective (padimate o) Stick 1 ea TOPICAL QPM glatiramer [Copaxone] 20 mg/mL Syringe 20 mg SUBCUT QAM House Shakes 1 ea PO DAILY Rx Instructions: chocolate Discharge Orders: Discharge Order (Routine); Ordered 11/21/23 Ordered By: Renuka Colin Admission Data Admit Date/Time: 11/15/23 15:37 Attending Provider: Charleen Parra Admit Provider: Sanjeev Balbuena Primary Care Provider: Nila Cuenca Other Providers: Sanjeev Balbuena Other Interventions: Discharge Summary Assessment (RN) Last Done: 11/21/23 10:14 Supervising Physician Co-Signing Physician Notes Attending Physician Supervision Note: I independently interviewed and examined the patient and verified the rider history and physical, reviewed labs and image studies and agree with findings and care plan noted above. Metabolic encephalopathy - multifactorial - medication, infection, electrolyte abnormality. -Home meds were held and kept NPO and on IVF. Once alert and cleared by speech therapy - diet advanced and home meds resumed. -Mentation improved and back to baseline. -Considering overall poor health and comorbidities - to consider goals of care discussion at SNF UTI - E coli - rocephin - finished course. Resident Activity Tracking Resident Involvement: Resident Care Provided Care Provided: Adult Hospital Medicine
[2023-11-21 07:51] LABS: Calcium 8.6 mg/dl (8.6-10.3); Creatinine Clr Calc Pharmacy 80.7 ml/min; Est GFR (African American) 100.3 ml/min; Est GFR (Non-African American) 86.6 ml/min; Potassium 3.3 mmol/L (3.5-5.1)
[2023-11-21 08:08] VITALS: RESP 20
[2023-11-21] MEDS: POTASSIUM CHLORIDE / WTR 10 MEQ/100 ML PLCT IV SCH (09:39)
[2023-11-21 12:21] VITALS: BP 118/67; PULSE 87; TEMP 98.2; O2SAT 93
== END 2023-11-21 13:32 | DRG 689 ==
LOC: ED 12:52 → SUATTDRO 15:37 → EDINP 15:37 → 2E 17:35
DX: G93.41 Metabolic encephalopathy; K21.9 Gastro-esophageal reflux disease without esophagitis; E87.0 Hyperosmolality and hypernatremia; Z86.718 Personal history of other venous thrombosis and embolism; Z11.52 Encounter for screening for COVID-19; F32.A Depression, unspecified; Z74.01 Bed confinement status; E87.6 Hypokalemia; Z66 Do not resuscitate; Z79.01 Long term (current) use of anticoagulants; F05 Delirium due to known physiological condition; G82.20 Paraplegia, unspecified; E86.0 Dehydration; I10 Essential (primary) hypertension; N31.9 Neuromuscular dysfunction of bladder, unspecified; Z88.1 Allergy status to other antibiotic agents; Z88.8 Allergy status to other drugs, medicaments and biological substances; E83.42 Hypomagnesemia; N39.0 Urinary tract infection, site not specified; G35 Multiple sclerosis; Z79.899 Other long term (current) drug therapy

== ENCOUNTER 2024-02-22 21:17 | Inpatient (IN) ==
--- NOTE | 2024-02-22 22:03 | Emergency Department Note ---
Impression & Plan Fever, Vomiting, Altered mental status ED Provider Note CHIEF COMPLAINT: Vomiting HISTORY OF PRESENTING ILLNESS: This 83-year-old female patient presents to the emergency department via EMS from [facility] for evaluation of vomiting. Apparently the patient started vomiting yesterday evening. The patient has a history of small bowel obstructions and pseudoobstruction's. Per [facility] staff, the vomiting was dark brown, but not coffee-ground's. She did have a bowel movement today. The patient was treated with Solu-Medrol and Benadryl for an allergic reaction that caused lip swelling from her promethazine yesterday. The patient is nonverbal and mostly flaccid and altered at baseline. The patient was hypoxic on room air at 87% upon arrival and 2 L of oxygen by nasal cannula were applied. The patient is also febrile at 37.9 C. REVIEW OF SYSTEMS: See HPI for pertinent positives and pertinent negatives. ALLERGIES: Levaquin, promethazine MEDICATIONS: See below PAST MEDICAL HISTORY: See below PHYSICAL EXAM: VITALS: Vitals are noted on the nurse's note and reviewed by myself. GENERAL: The patient is nonverbal, altered, chronically ill in appearance, and with signs of wasting and poor muscle tone. However, non toxic, no acute distress, non-diaphoretic. SKIN: Capillary refill <2 sec. EYES: PERRLA. EOMI. Conjunctivae without injection, sclerae without icterus. NOSE: Patent without discharge. MOUTH: Mucous membranes somewhat dry. Uvula midline. Airway patent. NECK: Supple without nuchal rigidity. HEART: Regular rate and rhythm without murmurs gallops or rubs. LUNGS: Clear to auscultation bilaterally without wheezes, rales or rhonchi. No retractions or accessory muscle use. ABDOMEN: Positive bowel sounds x 4. Normal tympanic percussion. Soft, nontender. No masses or organomegaly. Eller sign negative. No guarding or rebound tenderness. No focal RLQ or LLQ tenderness. MUSCULOSKELETAL: Extremity wasting and poor muscle tone with contractures and position deformities of her legs. NEURO: The patient was sleeping during my exam. She did respond to touch, but did not respond to voice or answer any my questions. DIFFERENTIAL DIAGNOSIS: Differential diagnosis includes Influenza, RSV, COVID, viral syndrome, otitis media, otitis externa, pharyngitis, strep throat, pneumonia, meningitis, urinary tract infection, cellulitis, abscess, sepsis, bacteremia, HI, PE, pneumonia, aspiration pneumonia, small bowel obstruction, acute intra-abdominal infection, acute intracranial abnormality, as well as other pathologies. ED COURSE AND MEDICAL DECISION MAKING: HISTORY FROM INDEPENDENT HISTORIAN: All history was obtained from EMS and [facility] staff due to the patient's altered mental status. MEDICATIONS GIVEN: A total of 1.5 L normal saline solution bolus. Tylenol 1000 mg IV. Zosyn 4.5 g IV. MONITOR: Continuous residential monitor: Order was placed for continuous residential monitor. Patient was placed on the residential monitor and continuous pulse ox. Patient was noted to be in normal sinus rhythm at an initial rate of 76 bpm per my interpretation. EKG: EKG was interpreted by myself as A-fib without acute ST or T wave changes. EKG rate was listed as 144, but the patient was only in the 70s on the monitor and her rhythm on the monitor was normal sinus rhythm. INTERPRETATION OF LABS: I interpreted the labs with full lab results as below in the lab section of this note. Pertinent lab results discussed in the MDM section below. INTERPRETATION OF IMAGING: Imaging studies were interpreted by myself and read by radiology as per the imaging section of this note. CT scan of the head without contrast was negative for acute intracranial abnormalities, but did show mucus in the left sphenoid sinus concerning for acute sinusitis. CTA of the chest with IV contrast showed interseptal thickening which could be related to atelectasis and/or pulmonary edema. There is thickening of the wall of the esophagus which is nonspecific. Emphysema is noted. CT scan of the abdomen pelvis with IV contrast showed marked thickening of the wall of the sigmoid colon which is definitively redundant. This could be infectious or inflammatory, but malignancy is considered less likely. The stomach is mildly distended with fluid, however, there is no evidence of obstruction. Small hiatal hernia with thickening of the esophageal wall which is nonspecific. Diverticulosis. Age-indeterminate mild L1 compression fracture. Trace right pleural effusion. CHRONIC MEDICAL/SOCIAL CONDITIONS AFFECTING CARE: Paraplegia CONSULTATIONS: On-call hospitalist [facility] SUMMARY: I examined the patient. The patient presents from the [facility] for evaluation of vomiting with a history of bowel obstruction. The patient is nonverbal and unable to answer any of my questions. An IV lock was placed and labs were drawn. The patient was initially given 500 mL normal saline solution bolus and Tylenol 1000 mg IV. Her lactate came back elevated at 2.2. White blood cell count elevated at 16.55. The patient's temperature was initially 37.9 C. Initially there was concern for fluid overload from high-volume IV fluids, but the patient did become hypotensive and she was given an additional 1 L normal saline solution bolus for a total of 1.5 L which is close to the patient's 1977 mL ideal body weight bolus. Will hold on additional IV fluids in the ER due to concern for fluid overload. The patient's lactate did improve to 2.1. The patient's fever resolved with the IV Tylenol. Her blood pressures returned to normal after the IV fluids. The patient was never tachycardic. Due to the nationwide backorder of blood cultures, only 1 blood culture was obtained. The patient was given IV Zosyn 4.5 g IV. The remainder of the labs showed a hemoglobin of 15.6 and platelet count of 400. INR 1.9, PT 19.1, APTT 32. Anion gap 12, BUN 30, glucose 155, and alk phos 105. Remainder of the CMP was without acute abnormalities. Magnesium normal at 2.2. High-sensitivity troponin was elevated at 18.3, but improved to 16.7. Lipase was normal. Procalcitonin normal. Urinalysis questionable for infection versus contamination with culture pending. Respiratory bio fire was negative. CT scan of the head without contrast was negative for acute intracranial abnormalities, but did show mucus in the left sphenoid sinus concerning for acute sinusitis. CTA of the chest with IV contrast showed interseptal thickening which could be related to atelectasis and/or pulmonary edema. There is thickening of the wall of the esophagus which is nonspecific. Emphysema is noted. CT scan of the abdomen pelvis with IV contrast showed marked thickening of the wall of the sigmoid colon which is definitively redundant. This could be infectious or inflammatory, but malignancy is considered less likely. The stomach is mildly distended with fluid, however, there is no evidence of obstruction. Small hiatal hernia with thickening of the esophageal wall which is nonspecific. Diverticulosis. Age-indeterminate mild L1 compression fracture. Trace right pleural effusion. There is concern for sepsis due to the patient's fever, hypotension, elevated white blood cell count, and elevated lactate level. Source may possibly be secondary to early aspiration pneumonia versus UTI versus other etiology. Due to concern for fluid overload the patient was only given 1.5 L of normal saline solution bolus. She was given Zosyn 4.5 g IV. 1 blood culture is pending. Urine culture is pending. I had a meaningful discussion about this patient with Dr. Tan who agrees with my assessment and the treatment plan. The patient will require admission for further evaluation and treatment. I spoke with the on-call hospitalist who agreed to admit the patient for further management. Please refer to their dictation for further details. The patient's care was transferred in stable condition. DIAGNOSIS: Fever with concern for possible sepsis Vomiting Past Med/Surg History Problem List (Updated 02/23/24 @ 05:58 by Sada Abebe PA-C) Vomiting (Acute) Fever (Acute) Vomiting Hypokalemia (Acute) Weakness (Acute) Esophageal reflux Altered mental status (Acute) Dehydration Hypernatremia Depression Hypomagnesemia Recurrent deep vein thrombosis (DVT) UTI due to extended-spectrum beta lactamase (ESBL) producing Escherichia coli (Acute) Pseudomonas infection Surgical wound, non healing (Acute) Generalized weakness (Acute) Head injury (Acute) Right hip pain (Acute) Scalp hematoma (Acute) Skin breakdown (Acute) Weakness (Acute) Cellulitis of left leg (Acute) Febrile illness (Acute) Headache (Acute) Meningitis (Acute) Weakness (Acute) HTN (hypertension) HLD (hyperlipidemia) Upper GI bleed (Acute) Chest pain (Acute) Encounter for pre-operative examination Coffee ground emesis Paraplegia DVT prophylaxis Sepsis (Acute) Vitamin B12 deficiency Hypotension UTI (urinary tract infection) (Acute) Confusion Complicated urinary tract infection (Acute) Cellulitis Abscess or cellulitis of chest wall Urinary retention Constipation Fever Abnormal urinalysis SVT (supraventricular tachycardia) Paraplegia Lymphedema of left leg (Chronic) History of multiple sclerosis (Chronic) Multiple sclerosis Left-sided weakness (Acute) Medical History Hypokalemia Depression Neurogenic bladder disorder Esophageal reflux History of depression Hx of decubitus ulcer History of closed head injury Hypoglycemia Necrotizing fasciitis Leukocytosis Endotracheally intubated Admitted to intensive care unit Encounter for pre-operative examination Abscess or cellulitis of chest wall Sepsis Catheter-associated urinary tract infection Sepsis Atrial flutter with rapid ventricular response Altered mental status DVT (deep venous thrombosis) [place] grade C esophagitis Esophagitis Thank you for allowing us to participate in the care of this patient. If you should have any further questions or concerns, don't hesitate to contact us at extension [phone] or [phone]. Esophagitis Urinary retention Constipation Fever Abnormal urinalysis SVT (supraventricular tachycardia) Paraplegia Lymphedema of left leg History of multiple sclerosis Multiple sclerosis Left-sided weakness Trigeminal neuralgia of left side of face Surgical History History of craniotomy History of incision and drainage (01/19/22) Left Breast and Chest Wall Incision Drainage and Debridement including soft tissue including muscle greater than 50cm squared(Left) - Hair Mcknight DO, FACS Family History Other Family history non-contributory Social History Smoking Status: Unknown if ever smoked Preferred Language: [place] Communication Ability: Unable Communication Ability Comment: patient was able to answer yes or no questions Manager Local Required: Yes Beliefs That Will Affect Care: None marital status: Current Living Situation: Intermediate Current Living Situation Comment: Home Health Feels Safe at Home: Yes Assistive Devices: Wheelchair Allergies Allergies Allergy/AdvReac Type Severity Reaction Status Date / Time levofloxacin [From Levaquin] Allergy Unknown Unknown Verified 02/23/24 02:49 promethazine Allergy Unknown Verified 02/23/24 02:49 Home Meds Home Medications Medication Instructions Recorded Confirmed Saccharomyces boulardii 250 mg 250 mg PO BID 02/23/24 02/23/24 capsule (Florastor) acetaminophen 325 mg tablet 650 mg PO Q6 PRN Fever Or Pain 02/23/24 02/23/24 (Tylenol) ascorbic acid (vitamin C) 1,000 mg 1 g PO AMHS 02/23/24 02/23/24 tablet (Vitamin C) bisacodyl 10 mg rectal suppository 10 mg VA HS 02/23/24 02/23/24 cholecalciferol (vitamin D3) 25 25 mcg PO QAM 02/23/24 02/23/24 mcg (1,000 unit) tablet (Vitamin D3) citalopram 10 mg tablet 10 mg PO DAILY 02/23/24 02/23/24 cyanocobalamin (vitamin B-12) 1,000 mcg PO QAM 02/23/24 02/23/24 1,000 mcg tablet (Vitamin B-12) diphenhydramine HCl 25 mg tablet 25 mg PO Q6 PRN face swelling 02/23/24 02/23/24 (Benadryl Allergy) eucalyptus-menthol oral mucosal 1 frankie mucous membrane .Q1HR PRN 02/23/24 02/23/24 lozenge Sore Throat gabapentin 600 mg tablet 600 mg PO TID 02/23/24 02/23/24 glatiramer 20 mg/mL subcutaneous 20 mg subcut QAM 02/23/24 02/23/24 syringe ([place]) lip protective (padimate o) 1 ea topical QPM 02/23/24 02/23/24 methenamine hippurate 1 gram tablet 1 g PO BID 02/23/24 02/23/24 metoprolol tartrate 25 mg tablet 25 mg PO BID 02/23/24 02/23/24 multivitamin 1 tab PO QAM 02/23/24 02/23/24 ondansetron HCl 4 mg tablet 4 mg PO Q8 PRN Nausea 02/23/24 02/23/24 pantoprazole 40 mg tablet,delayed 40 mg PO QAM 02/23/24 02/23/24 release polyethylene glycol 3350 17 gram 17 g PO QAM 02/23/24 02/23/24 oral powder packet (Miralax) potassium chloride 10 mEq 20 meq PO TID 02/23/24 02/23/24 tablet,extended release sennosides 8.6 mg-docusate sodium 1 tab-cap PO AMHS 02/23/24 02/23/24 50 mg tablet (Senokot-S) tramadol 50 mg tablet 100 mg PO TID 02/23/24 02/23/24 warfarin 5 mg tablet 5 mg PO QPM 02/23/24 02/23/24 Results & Data (ED) Vital Signs Vital Signs - 24 hr 02/22/24 21:39 02/22/24 21:51 02/22/24 21:57 Temperature 37.9 C H Temperature Source Oral Pulse Rate 75 82 80 Pulse Rate [Apical] Pulse Rate from SpO2 Sensor 81 Pulse Rhythm [Apical] Pulse Strength [Apical] Respiratory Rate 19 19 Respiratory Effort / Characteristics Non-Labored Spontaneous Respiratory Depth Normal Respiratory Pattern Blood Pressure 139/76 124/76 Blood Pressure [Right Arm] Blood Pressure Mean 97 92 Blood Pressure Mean [Right Arm] Blood Pressure Position [Right Arm] Pulse Oximetry 94 95 Oxygen Delivery Method Nasal Cannula Oxygen Flow Rate 2 Sepsis Recent Fever Within 48 Hours Yes Sepsis New/Unexplained Change in Mental Status N/A Sepsis Action Taken by Nursing No Action Required Oxygen Flow Rate - Titration Pulse Oximetry Post Tiitration 02/22/24 22:06 02/22/24 22:30 02/22/24 22:30 Temperature Temperature Source Pulse Rate 67 66 Pulse Rate [Apical] Pulse Rate from SpO2 Sensor 68 66 Pulse Rhythm [Apical] Pulse Strength [Apical] Respiratory Rate 15 14 Respiratory Effort / Characteristics Respiratory Depth Respiratory Pattern Blood Pressure 123/68 135/72 Blood Pressure [Right Arm] Blood Pressure Mean 86 93 Blood Pressure Mean [Right Arm] Blood Pressure Position [Right Arm] Pulse Oximetry 95 97 88 L Oxygen Delivery Method Room Air Oxygen Flow Rate Sepsis Recent Fever Within 48 Hours Sepsis New/Unexplained Change in Mental Status Sepsis Action Taken by Nursing Oxygen Flow Rate - Titration 2 Pulse Oximetry Post Tiitration 99 02/22/24 22:51 02/22/24 22:59 02/22/24 23:00 Temperature Temperature Source Pulse Rate 84 Pulse Rate [Apical] Pulse Rate from SpO2 Sensor 86 Pulse Rhythm [Apical] Pulse Strength [Apical] Respiratory Rate 24 Respiratory Effort / Characteristics Respiratory Depth Respiratory Pattern Blood Pressure 141/62 H Blood Pressure [Right Arm] Blood Pressure Mean 106 Blood Pressure Mean [Right Arm] Blood Pressure Position [Right Arm] Pulse Oximetry 92 97 Oxygen Delivery Method Room Air Oxygen Flow Rate Sepsis Recent Fever Within 48 Hours Sepsis New/Unexplained Change in Mental Status Sepsis Action Taken by Nursing Oxygen Flow Rate - Titration Pulse Oximetry Post Tiitration 02/22/24 23:00 02/22/24 23:00 02/22/24 23:03 Temperature Temperature Source Pulse Rate 75 Pulse Rate [Apical] Pulse Rate from SpO2 Sensor 75 Pulse Rhythm [Apical] Pulse Strength [Apical] Respiratory Rate 16 Respiratory Effort / Characteristics Respiratory Depth Respiratory Pattern Blood Pressure 141/62 H 141/62 H Blood Pressure [Right Arm] Blood Pressure Mean 106 106 Blood Pressure Mean [Right Arm] Blood Pressure Position [Right Arm] Pulse Oximetry 96 Oxygen Delivery Method Oxygen Flow Rate Sepsis Recent Fever Within 48 Hours Sepsis New/Unexplained Change in Mental Status Sepsis Action Taken by Nursing Oxygen Flow Rate - Titration Pulse Oximetry Post Tiitration 02/22/24 23:57 02/23/24 00:00 02/23/24 00:05 Temperature 37.2 C Temperature Source Oral Pulse Rate Pulse Rate [Apical] 76 Pulse Rate from SpO2 Sensor 78 Pulse Rhythm [Apical] Regular Pulse Strength [Apical] Normal Respiratory Rate 14 Respiratory Effort / Characteristics Non-Labored Respiratory Depth Normal Respiratory Pattern Regular Blood Pressure 98/72 L Blood Pressure [Right Arm] 98/72 L Blood Pressure Mean 77 Blood Pressure Mean [Right Arm] 80 Blood Pressure Position [Right Arm] Lying Pulse Oximetry 100 98 Oxygen Delivery Method Room Air Oxygen Flow Rate Sepsis Recent Fever Within 48 Hours Sepsis New/Unexplained Change in Mental Status Sepsis Action Taken by Nursing Oxygen Flow Rate - Titration Pulse Oximetry Post Tiitration 02/23/24 00:05 02/23/24 00:05 02/23/24 00:05 Temperature Temperature Source Pulse Rate Pulse Rate [Apical] Pulse Rate from SpO2 Sensor Pulse Rhythm [Apical] Pulse Strength [Apical] Respiratory Rate Respiratory Effort / Characteristics Respiratory Depth Respiratory Pattern Blood Pressure 98/72 L 98/72 L 98/72 L Blood Pressure [Right Arm] Blood Pressure Mean 77 77 77 Blood Pressure Mean [Right Arm] Blood Pressure Position [Right Arm] Pulse Oximetry Oxygen Delivery Method Oxygen Flow Rate Sepsis Recent Fever Within 48 Hours Sepsis New/Unexplained Change in Mental Status Sepsis Action Taken by Nursing Oxygen Flow Rate - Titration Pulse Oximetry Post Tiitration 02/23/24 00:06 02/23/24 00:30 02/23/24 00:32 Temperature Temperature Source Pulse Rate 69 72 Pulse Rate [Apical] Pulse Rate from SpO2 Sensor 69 73 Pulse Rhythm [Apical] Pulse Strength [Apical] Respiratory Rate 15 19 Respiratory Effort / Characteristics Respiratory Depth Respiratory Pattern Blood Pressure 134/49 L Blood Pressure [Right Arm] Blood Pressure Mean 78 Blood Pressure Mean [Right Arm] Blood Pressure Position [Right Arm] Pulse Oximetry 91 90 Oxygen Delivery Method Oxygen Flow Rate Sepsis Recent Fever Within 48 Hours Sepsis New/Unexplained Change in Mental Status Sepsis Action Taken by Nursing Oxygen Flow Rate - Titration Pulse Oximetry Post Tiitration 02/23/24 00:32 02/23/24 00:32 02/23/24 00:32 Temperature Temperature Source Pulse Rate Pulse Rate [Apical] Pulse Rate from SpO2 Sensor Pulse Rhythm [Apical] Pulse Strength [Apical] Respiratory Rate Respiratory Effort / Characteristics Respiratory Depth Respiratory Pattern Blood Pressure 134/49 L 134/49 L 134/49 L Blood Pressure [Right Arm] Blood Pressure Mean 78 78 78 Blood Pressure Mean [Right Arm] Blood Pressure Position [Right Arm] Pulse Oximetry Oxygen Delivery Method Oxygen Flow Rate Sepsis Recent Fever Within 48 Hours Sepsis New/Unexplained Change in Mental Status Sepsis Action Taken by Nursing Oxygen Flow Rate - Titration Pulse Oximetry Post Tiitration 02/23/24 00:57 02/23/24 01:00 02/23/24 01:00 Temperature Temperature Source Pulse Rate 76 Pulse Rate [Apical] Pulse Rate from SpO2 Sensor 83 Pulse Rhythm [Apical] Pulse Strength [Apical] Respiratory Rate 14 Respiratory Effort / Characteristics Respiratory Depth Respiratory Pattern Blood Pressure 159/74 H 159/74 H Blood Pressure [Right Arm] Blood Pressure Mean 105 105 Blood Pressure Mean [Right Arm] Blood Pressure Position [Right Arm] Pulse Oximetry 98 Oxygen Delivery Method Room Air Oxygen Flow Rate Sepsis Recent Fever Within 48 Hours Sepsis New/Unexplained Change in Mental Status Sepsis Action Taken by Nursing Oxygen Flow Rate - Titration Pulse Oximetry Post Tiitration 02/23/24 01:03 02/23/24 01:59 02/23/24 02:00 Temperature Temperature Source Pulse Rate 63 63 Pulse Rate [Apical] Pulse Rate from SpO2 Sensor 63 62 Pulse Rhythm [Apical] Pulse Strength [Apical] Respiratory Rate 14 14 Respiratory Effort / Characteristics Respiratory Depth Respiratory Pattern Blood Pressure 142/72 H Blood Pressure [Right Arm] Blood Pressure Mean 87 Blood Pressure Mean [Right Arm] Blood Pressure Position [Right Arm] Pulse Oximetry 100 96 Oxygen Delivery Method Oxygen Flow Rate Sepsis Recent Fever Within 48 Hours Sepsis New/Unexplained Change in Mental Status Sepsis Action Taken by Nursing Oxygen Flow Rate - Titration Pulse Oximetry Post Tiitration 02/23/24 02:00 02/23/24 02:00 02/23/24 02:03 Temperature Temperature Source Pulse Rate 61 Pulse Rate [Apical] Pulse Rate from SpO2 Sensor 62 Pulse Rhythm [Apical] Pulse Strength [Apical] Respiratory Rate 16 Respiratory Effort / Characteristics Respiratory Depth Respiratory Pattern Blood Pressure 142/72 H 142/72 H Blood Pressure [Right Arm] Blood Pressure Mean 87 87 Blood Pressure Mean [Right Arm] Blood Pressure Position [Right Arm] Pulse Oximetry 97 Oxygen Delivery Method Oxygen Flow Rate Sepsis Recent Fever Within 48 Hours Sepsis New/Unexplained Change in Mental Status Sepsis Action Taken by Nursing Oxygen Flow Rate - Titration Pulse Oximetry Post Tiitration Laboratory Data 02/22/24 21:42 02/23/24 03:58 Lab Results 02/22/24 02/22/24 02/22/24 Range/Units 21:42 23:18 Unknown WBC 16.55 H (4.8-10.8) K/ul RBC 5.49 H (4.20-5.40) M/uL Hgb 15.6 (12.0-16.0) g/dl Hct 50.2 H (37.0-47.0) % MCV 91.4 (80.0-100.0) fL MCH 28.4 (25.0-34.0) pg MCHC 31.1 L (32.0-36.0) g/dL RDW Std Deviation 48.9 H (36.4-46.3) fL RDW Coeff of Aparna 14.6 H (11.5-14.5) % Plt Count 400 (130-400) K/uL MPV 11.1 (9.4-12.4) fL Immature Gran % (Auto) 0.6 % Neut % (Auto) 77.7 % Lymph % (Auto) 12.7 % [place] % (Auto) 8.8 % Eos % (Auto) 0.0 % Baso % (Auto) 0.2 % Neut # (Auto) 12.86 H (1.40-6.50) K/uL Lymph # (Auto) 2.11 (1.20-3.40) K/uL [place] # (Auto) 1.45 H (0.11-0.59) K/uL Eos # (Auto) 0.00 (0.00-0.50) K/uL Baso # (Auto) 0.03 (0.00-0.20) K/uL Immature Gran # (Auto) 0.10 (0.01-0.20) K/uL PT 19.1 H (9.0-12.0) Seconds INR 1.9 H (0.9-1.1) APTT 32 H (21-31) Seconds PTT Ratio 1.2 Sodium 145 (136-145) mmol/L Potassium 3.9 (3.5-5.1) mmol/L Chloride 99 (98-107) mmol/L Carbon Dioxide 34 H (21-32) mmol/L Anion Gap 12 H (3-11) BUN 30 H (6-23) mg/dl Creatinine 1.11 (0.6-1.2) mg/dl Est Cr Clr Drug Dosing 42.9 ml/min Est GFR ( Amer) 52.4 ml/min Est GFR (Non-Af Amer) 45.2 ml/min BUN/Creatinine Ratio 27.0 H (10-20) Glucose 155 H (70-99(Fasting)) mg/dl Lactate 2.2 H* (0.4-2.0) mmol/L Calcium 10.4 H (8.6-10.3) mg/dl Magnesium 2.2 (1.7-2.4) mg/dl Total Bilirubin 0.4 (0.2-1.0) mg/dl AST 20 (13-39) U/L ALT 11 (7-52) U/L Alkaline Phosphatase 105 H (34-104) U/L Troponin I High Sens 18.3 H (0-14) pg/ml Total Protein 7.8 (6.0-8.3) gm/dl Albumin 4.2 (3.4-5.0) gm/dl Globulin 3.6 (2.5-4.0) gm/dl Albumin/Globulin Ratio 1.2 (0.9-2) Lipase 13 (11-82) U/L Procalcitonin 0.13 (0-0.5) ng/ml Adenovirus (PCR) Not Detected (NotDetected) B. pertussis DNA (PCR) Not Detected (NotDetected) B.parapertussis DNA PCR Not Detected (NotDetected) C. pneumoniae DNA (PCR) Not Detected (NotDetected) Coronavirus OC43 (PCR) Not Detected (NotDetected) Coronavirus HKU1 (PCR) Not Detected (NotDetected) Coronavirus 229E (PCR) Not Detected (NotDetected) SARS-CoV-2 (PCR) Not Detected (NotDetected) Coronavirus NL63 (PCR) Not Detected (NotDetected) Human Metapneumovir PCR Not Detected (NotDetected) Influenza Type A (PCR) Not Detected (NotDetected) Influenza Type B (PCR) Not Detected (NotDetected) M. pneumoniae (PCR) Not Detected (NotDetected) Parainfluenza 1 (PCR) Not Detected (NotDetected) Parainfluenza 2 (PCR) Not Detected (NotDetected) Parainfluenza 3 (PCR) Not Detected (NotDetected) Parainfluenza 4 (PCR) Not Detected (NotDetected) RSV (PCR) Not Detected (NotDetected) Entero/Rhino (PCR) Not Detected (NotDetected) 02/23/24 Range/Units 01:16 WBC (4.8-10.8) K/ul RBC (4.20-5.40) M/uL Hgb (12.0-16.0) g/dl Hct (37.0-47.0) % MCV (80.0-100.0) fL MCH (25.0-34.0) pg MCHC (32.0-36.0) g/dL RDW Std Deviation (36.4-46.3) fL RDW Coeff of Aparna (11.5-14.5) % Plt Count (130-400) K/uL MPV (9.4-12.4) fL Immature Gran % (Auto) % Neut % (Auto) % Lymph % (Auto) % [place] % (Auto) % Eos % (Auto) % Baso % (Auto) % Neut # (Auto) (1.40-6.50) K/uL Lymph # (Auto) (1.20-3.40) K/uL [place] # (Auto) (0.11-0.59) K/uL Eos # (Auto) (0.00-0.50) K/uL Baso # (Auto) (0.00-0.20) K/uL Immature Gran # (Auto) (0.01-0.20) K/uL PT (9.0-12.0) Seconds INR (0.9-1.1) APTT (21-31) Seconds PTT Ratio Sodium (136-145) mmol/L Potassium (3.5-5.1) mmol/L Chloride (98-107) mmol/L Carbon Dioxide (21-32) mmol/L Anion Gap (3-11) BUN (6-23) mg/dl Creatinine (0.6-1.2) mg/dl Est Cr Clr Drug Dosing ml/min Est GFR ( Amer) ml/min Est GFR (Non-Af Amer) ml/min BUN/Creatinine Ratio (10-20) Glucose (70-99(Fasting)) mg/dl Lactate 2.1 H* (0.4-2.0) mmol/L Calcium (8.6-10.3) mg/dl Magnesium (1.7-2.4) mg/dl Total Bilirubin (0.2-1.0) mg/dl AST (13-39) U/L ALT (7-52) U/L Alkaline Phosphatase (34-104) U/L Troponin I High Sens (0-14) pg/ml Total Protein (6.0-8.3) gm/dl Albumin (3.4-5.0) gm/dl Globulin (2.5-4.0) gm/dl Albumin/Globulin Ratio (0.9-2) Lipase (11-82) U/L Procalcitonin (0-0.5) ng/ml Adenovirus (PCR) (NotDetected) B. pertussis DNA (PCR) (NotDetected) B.parapertussis DNA PCR (NotDetected) C. pneumoniae DNA (PCR) (NotDetected) Coronavirus OC43 (PCR) (NotDetected) Coronavirus HKU1 (PCR) (NotDetected) Coronavirus 229E (PCR) (NotDetected) SARS-CoV-2 (PCR) (NotDetected) Coronavirus NL63 (PCR) (NotDetected) Human Metapneumovir PCR (NotDetected) Influenza Type A (PCR) (NotDetected) Influenza Type B (PCR) (NotDetected) M. pneumoniae (PCR) (NotDetected) Parainfluenza 1 (PCR) (NotDetected) Parainfluenza 2 (PCR) (NotDetected) Parainfluenza 3 (PCR) (NotDetected) Parainfluenza 4 (PCR) (NotDetected) RSV (PCR) (NotDetected) Entero/Rhino (PCR) (NotDetected) Administered Medications Lactated Ringer's (Lr) 1,000 mls @ 80 mls/hr IV .[id number] JAVID Stop: 03/24/24 03:29 Last Admin: 02/23/24 03:50 Dose: 80 mls/hr Documented By: SHARLA Discontinued Medications Sodium Chloride (Nss) 500 mls @ 999 mls/hr IV .Q31M STA Stop: 02/22/24 22:37 Last Infusion: 02/22/24 23:26 Dose: Infused Documented By: Admin: 02/22/24 22:42 Dose: 999 mls/hr Documented By: SHARLA Acetaminophen (Ofirmev) 1,000 mg in 100 mls @ 400 mls/hr IV NOW STA Stop: 02/22/24 22:21 Last Infusion: 02/22/24 23:04 Dose: Infused Documented By: Admin: 02/22/24 22:42 Dose: 400 mls/hr Documented By: SHARLA Sodium Chloride (Nss) 1,000 mls @ 999 mls/hr IV .Q1H1M ONE Stop: 02/23/24 00:36 Last Infusion: 02/23/24 01:01 Dose: Infused Documented By: Admin: 02/22/24 23:54 Dose: 999 mls/hr Documented By: SHARLA Piperacillin Sod/Tazobactam Sod (Zosyn) 4.5 gm in 100 mls @ 200 mls/hr IV NOW ONE Stop: 02/23/24 01:53 Last Infusion: 02/23/24 03:14 Dose: Infused Documented By: Admin: 02/23/24 02:29 Dose: 200 mls/hr Documented By: SHARLA Ioversol (Optiray 320 125ml) 120 ml IV ONCE ONE Stop: 02/22/24 23:45 Last Admin: 02/22/24 23:45 Dose: 120 ml Documented By: [employer] Data Radiologist's Impression: Chest CTA 02/22/24 22:07 Exam(s): CTA CHEST IV Amt: 119 cc opit 320 EXAM: CT Angiography Chest With Intravenous Contrast CLINICAL HISTORY: Shortness of breath. TECHNIQUE: Axial computed tomographic angiography images of the chest with intravenous contrast. MIPS images were created and reviewed. CTDI is 35. 79 mGy and DLP is 3001.52 mGy-cm. Automated exposure control was utilized for the study. A dose lowering technique was utilized adhering to the principles of ALARA. MIP reconstructed images were created and reviewed. COMPARISON: CT chest 01/17/2022 and chest radiograph 11/15/2023 FINDINGS: Pulmonary arteries: Unremarkable. No pulmonary embolism. Aorta: Mild atherosclerotic disease. No thoracic aortic aneurysm. Lungs: Emphysema is noted. Interseptal thickening could relate to atelectasis and/or pulmonary edema. Bibasilar atelectasis. No definitive consolidation. Pleural space: Unremarkable. No significant effusion. No pneumothorax. Heart: Coronary artery calcifications are present. No cardiomegaly. No significant pericardial effusion. No evidence of RV dysfunction. Mediastinum: There is thickening of the wall the esophagus which is nonspecific. Bones/joints: No acute fracture. No dislocation. Soft tissues: Unremarkable. Lymph nodes: Unremarkable. No enlarged lymph nodes. IMPRESSION: 1. Interseptal thickening could relate to atelectasis and/or pulmonary edema. 2. There is thickening of the wall the esophagus which is nonspecific. 3. Emphysema is noted. Emphysema is an independent risk factor for lung cancer. Recommend evaluation for low dose lung cancer screening protocol. Electronically signed by: Meggan Finch MD 02/23/24 01:[address] 02/22/24 22:07 Exam(s): CT HEAD Without Contrast EXAM: CT Head Without Intravenous Contrast CLINICAL HISTORY: Fever and vomiting. TECHNIQUE: Axial computed tomography images of the head/brain without intravenous contrast. CTDI is 35.79 mGy and DLP is 3001.52 mGy-cm. Automated exposure control was utilized for the study. A dose lowering technique was utilized adhering to the principles of ALARA. COMPARISON: CT head 11/15/2023 FINDINGS: Brain: No intracranial hemorrhage, mass-effect or midline shift. No abnormal extra axial fluid. No evidence of acute infarct. Moderate periventricular white matter hypodensities are most consistent with chronic microangiopathy. Ventricles: Unremarkable. No ventriculomegaly. Bones/joints: There are surgical changes of a left occipital craniotomy. No acute fracture. Soft tissues: Unremarkable. Sinuses: There is mucus in the left sphenoid sinus concerning for acute sinusitis. Mastoid air cells: Unremarkable as visualized. No mastoid effusion. IMPRESSION: 1. There is mucus in the left sphenoid sinus concerning for acute sinusitis. 2. No acute intracranial finding. Electronically signed by: Meggan Finch MD 02/23/24 00:58 AM Abdomen/Pelvis CT 02/22/24 22:08 Exam(s): CT ABDOMEN + PELVIS With Contrast IV Amt: 119 cc opit 320 EXAM: CT Abdomen and Pelvis With Intravenous Contrast CLINICAL HISTORY: Vomiting and fever. TECHNIQUE: Axial computed tomography images of the abdomen and pelvis with intravenous contrast. CTDI is 35.79 mGy and DLP is 3001.52 mGy-cm. Automated exposure control was utilized for the study. A dose lowering technique was utilized adhering to the principles of ALARA. CONTRAST: Patient received 119 cc opit 320 of IV contrast COMPARISON: CT abdomen and pelvis 05/11/2023 FINDINGS: Lung bases: Unremarkable. No mass. No consolidation. Pleural space: Trace right pleural effusion. Mediastinum: Small hiatal hernia. There is thickening of the esophageal wall which is nonspecific. ABDOMEN: Liver: Unremarkable. No mass. Gallbladder and bile ducts: Unremarkable. No calcified stones. No ductal dilation. Pancreas: Unremarkable. No mass. No ductal dilation. Spleen: Unremarkable. No splenomegaly. Adrenals: Unremarkable. No mass. Kidneys and ureters: Simple appearing bilateral renal cysts are present, no follow up is needed. The kidneys are otherwise unremarkable. No hydronephrosis. Stomach and bowel: There is marked thickening of the wall of the sigmoid colon which is markedly redundant. The stomach is mildly distended with fluid however there is no evidence of obstruction. Diverticulosis. PELVIS: Appendix: No findings to suggest acute appendicitis. Bladder: Unremarkable. No mass. Reproductive: Unremarkable as visualized. ABDOMEN and PELVIS: Intraperitoneal space: Unremarkable. No free air. No significant fluid collection. Bones/joints: There are degenerative changes of the spine. Age indeterminant mild L1 compression fracture. No dislocation. Soft tissues: Unremarkable. Vasculature: Mild atherosclerotic disease. No abdominal aortic aneurysm. Lymph nodes: Unremarkable. No enlarged lymph nodes. IMPRESSION: 1. There is marked thickening of the wall of the sigmoid colon which is definitively redundant. This could be infectious or inflammatory, malignancy is considered less likely. 2. The stomach is mildly distended with fluid however there is no evidence of obstruction. 3. Small hiatal hernia. There is thickening of the esophageal wall which is nonspecific. 4. Diverticulosis. 5. Age indeterminant mild L1 compression fracture. 6. Trace right pleural effusion. Electronically signed by: Meggan Finch MD 02/23/24 01:07 AM Discharge Plan Visit Data Chief Complaint: Vomiting Stated Complaint: Vomiting, Dark Brown Emesis ED Provider: Rosemarie Tan ED Midlevel Provider: Sada Abebe Discharge Problem: Fever, Vomiting, Altered mental status Patient Disposition: Admitted As Inpatient Condition: Good Discharge Instructions Interventions: ED Discharge Assessment Last Done: 02/23/24 03:35 Discharge Problem: Fever Qualifiers: Encounter type: initial encounter Vomiting Qualifiers: Vomiting type: unspecified Nausea presence: with nausea Qualified Code(s): R 11.2 - Nausea with vomiting, unspecified Altered mental status Qualifiers: Altered mental status type: unspecified Qualified Code(s): R41.82 - Altered mental status, unspecified
[2024-02-22 22:24] LABS: Basophils # (auto) 0.03 K/uL (0.00-0.20); Basophils % (auto) 0.2 %; Hematocrit (blood only) 50.2 % (37.0-47.0); Hemoglobin 15.6 g/dl (12.0-16.0); Immature Granulocytes % (auto) 0.6 %; Lymphocytes # (auto) 2.11 K/uL (1.20-3.40); Lymphocytes % (auto) 12.7 %; Mean Corpuscular Hemoglobin 28.4 pg (25.0-34.0); Mean Corpuscular Hgb Conc 31.1 g/dL (32.0-36.0); Mean Corpuscular Volume 91.4 fL (80.0-100.0); Mean Platelet Volume 11.1 fL (9.4-12.4); Monocytes # (auto) 1.45 K/uL (0.11-0.59); Monocytes % (auto) 8.8 %; Neutrophils # (auto) 12.86 K/uL (1.40-6.50); Neutrophils % (auto) 77.7 %; Platelet Count 400 K/uL (130-400); RDW Coefficient of Variation 14.6 % (11.5-14.5); RDW Standard Deviation 48.9 fL (36.4-46.3); Red Blood Count 5.49 M/uL (4.20-5.40); White Blood Count 16.55 K/ul (4.8-10.8)
[2024-02-22 22:35] LABS: INR 1.9 (0.9-1.1); Partial Thromboplastin Ratio 1.2; Partial Thromboplastin Time 32 Seconds (21-31); Prothrombin Time 19.1 Seconds (9.0-12.0)
[2024-02-22] MEDS: ACETAMINOPHEN 1,000 MG/100 ML VIAL IV STA (22:42)
[2024-02-22] MEDS: SODIUM CHLORIDE 0.9% 500 ML IV STA (22:42)
[2024-02-22 22:56] LABS: Albumin Globulin Ratio 1.2 (0.9-2); Albumin Level 4.2 gm/dl (3.4-5.0); Bilirubin,Total 0.4 mg/dl (0.2-1.0); Calcium 10.4 mg/dl (8.6-10.3); Creatinine Clr Calc Pharmacy 42.9 ml/min; Est GFR (African American) 52.4 ml/min; Est GFR (Non-African American) 45.2 ml/min; Globulin 3.6 gm/dl (2.5-4.0); Magnesium 2.2 mg/dl (1.7-2.4); Potassium 3.9 mmol/L (3.5-5.1); Total Protein 7.8 gm/dl (6.0-8.3)
[2024-02-22 23:02] LABS: Troponin I High Sensitivity 18.3 pg/ml (0-14)
[2024-02-22 23:36] LABS: Adenovirus PCR Not Detected (NotDetected); Bordetella parapertussis PCR Not Detected (NotDetected); Bordetella pertussis PCR Not Detected (NotDetected); Chlamydia pneumoniae PCR Not Detected (NotDetected); Coronavirus 229E PCR Not Detected (NotDetected); Coronavirus CoV-2 (COVID19)PCR Not Detected (NotDetected); Coronavirus HKU1 PCR Not Detected (NotDetected); Coronavirus NL63 PCR Not Detected (NotDetected); Coronavirus OC43PCR Not Detected (NotDetected); Human Metapneumovirus PCR Not Detected (NotDetected); Influenza A PCR Not Detected (NotDetected); Influenza B PCR Not Detected (NotDetected); Mycoplasma pneumoniae PCR Not Detected (NotDetected); Parainfluenza Virus 1 PCR Not Detected (NotDetected); Parainfluenza Virus 2 PCR Not Detected (NotDetected); Parainfluenza Virus 3 PCR Not Detected (NotDetected); Parainfluenza Virus 4 PCR Not Detected (NotDetected); Respiratory Syncytial VirusPCR Not Detected (NotDetected); Rhinovirus/Enterovirus PCR Not Detected (NotDetected)
[2024-02-22] MEDS: OPTIRAY 320 125ml IV ONE (23:45)
[2024-02-22] MEDS: SODIUM CHLORIDE 0.9% 1,000 ML IV ONE (23:54)
--- NOTE | 2024-02-23 00:59 | CT Scan Report ---
Exam(s): CT HEAD Without Contrast EXAM: CT Head Without Intravenous Contrast CLINICAL HISTORY: Fever and vomiting. TECHNIQUE: Axial computed tomography images of the head/brain without intravenous contrast. CTDI is 35.79 mGy and DLP is 3001.52 mGy-cm. Automated exposure control was utilized for the study. A dose lowering technique was utilized adhering to the principles of ALARA. COMPARISON: CT head 11/15/2023 FINDINGS: Brain: No intracranial hemorrhage, mass-effect or midline shift. No abnormal extra axial fluid. No evidence of acute infarct. Moderate periventricular white matter hypodensities are most consistent with chronic microangiopathy. Ventricles: Unremarkable. No ventriculomegaly. Bones/joints: There are surgical changes of a left occipital craniotomy. No acute fracture. Soft tissues: Unremarkable. Sinuses: There is mucus in the left sphenoid sinus concerning for acute sinusitis. Mastoid air cells: Unremarkable as visualized. No mastoid effusion. IMPRESSION: 1. There is mucus in the left sphenoid sinus concerning for acute sinusitis. 2. No acute intracranial finding. Electronically signed by: Meggan Finch MD 02/23/24 00:58 AM
--- NOTE | 2024-02-23 01:01 | CT Scan Report ---
Exam(s): CTA CHEST IV Amt: 119 cc opit 320 EXAM: CT Angiography Chest With Intravenous Contrast CLINICAL HISTORY: Shortness of breath. TECHNIQUE: Axial computed tomographic angiography images of the chest with intravenous contrast. MIPS images were created and reviewed. CTDI is 35. 79 mGy and DLP is 3001.52 mGy-cm. Automated exposure control was utilized for the study. A dose lowering technique was utilized adhering to the principles of ALARA. MIP reconstructed images were created and reviewed. COMPARISON: CT chest 01/17/2022 and chest radiograph 11/15/2023 FINDINGS: Pulmonary arteries: Unremarkable. No pulmonary embolism. Aorta: Mild atherosclerotic disease. No thoracic aortic aneurysm. Lungs: Emphysema is noted. Interseptal thickening could relate to atelectasis and/or pulmonary edema. Bibasilar atelectasis. No definitive consolidation. Pleural space: Unremarkable. No significant effusion. No pneumothorax. Heart: Coronary artery calcifications are present. No cardiomegaly. No significant pericardial effusion. No evidence of RV dysfunction. Mediastinum: There is thickening of the wall the esophagus which is nonspecific. Bones/joints: No acute fracture. No dislocation. Soft tissues: Unremarkable. Lymph nodes: Unremarkable. No enlarged lymph nodes. IMPRESSION: 1. Interseptal thickening could relate to atelectasis and/or pulmonary edema. 2. There is thickening of the wall the esophagus which is nonspecific. 3. Emphysema is noted. Emphysema is an independent risk factor for lung cancer. Recommend evaluation for low dose lung cancer screening protocol. Electronically signed by: Meggan Finch MD 02/23/24 01:00 AM
--- NOTE | 2024-02-23 01:08 | CT Scan Report ---
Exam(s): CT ABDOMEN + PELVIS With Contrast IV Amt: 119 cc opit 320 EXAM: CT Abdomen and Pelvis With Intravenous Contrast CLINICAL HISTORY: Vomiting and fever. TECHNIQUE: Axial computed tomography images of the abdomen and pelvis with intravenous contrast. CTDI is 35.79 mGy and DLP is 3001.52 mGy-cm. Automated exposure control was utilized for the study. A dose lowering technique was utilized adhering to the principles of ALARA. CONTRAST: Patient received 119 cc opit 320 of IV contrast COMPARISON: CT abdomen and pelvis 05/11/2023 FINDINGS: Lung bases: Unremarkable. No mass. No consolidation. Pleural space: Trace right pleural effusion. Mediastinum: Small hiatal hernia. There is thickening of the esophageal wall which is nonspecific. ABDOMEN: Liver: Unremarkable. No mass. Gallbladder and bile ducts: Unremarkable. No calcified stones. No ductal dilation. Pancreas: Unremarkable. No mass. No ductal dilation. Spleen: Unremarkable. No splenomegaly. Adrenals: Unremarkable. No mass. Kidneys and ureters: Simple appearing bilateral renal cysts are present, no follow up is needed. The kidneys are otherwise unremarkable. No hydronephrosis. Stomach and bowel: There is marked thickening of the wall of the sigmoid colon which is markedly redundant. The stomach is mildly distended with fluid however there is no evidence of obstruction. Diverticulosis. PELVIS: Appendix: No findings to suggest acute appendicitis. Bladder: Unremarkable. No mass. Reproductive: Unremarkable as visualized. ABDOMEN and PELVIS: Intraperitoneal space: Unremarkable. No free air. No significant fluid collection. Bones/joints: There are degenerative changes of the spine. Age indeterminant mild L1 compression fracture. No dislocation. Soft tissues: Unremarkable. Vasculature: Mild atherosclerotic disease. No abdominal aortic aneurysm. Lymph nodes: Unremarkable. No enlarged lymph nodes. IMPRESSION: 1. There is marked thickening of the wall of the sigmoid colon which is definitively redundant. This could be infectious or inflammatory, malignancy is considered less likely. 2. The stomach is mildly distended with fluid however there is no evidence of obstruction. 3. Small hiatal hernia. There is thickening of the esophageal wall which is nonspecific. 4. Diverticulosis. 5. Age indeterminant mild L1 compression fracture. 6. Trace right pleural effusion. Electronically signed by: Meggan Finch MD 02/23/24 01:07 AM
--- NOTE | 2024-02-23 01:44 | Emergency Department Note ---
ED Visit Note I was consulted by the Advanced Practice Provider. I personally made/approved the management plan and take responsibility for the patient management. I performed a substantive portion of the visit. This includes the aspects of: -History/Physical and Personally seeing the patient -MDM for sepsis and septic shock. The patient is receiving IV antibiotics for possible aspiration and will be admitted to the hospital. .
--- NOTE | 2024-02-23 02:17 | History & Physical Report ---
Date of Service February 23, 2024 Assessment & Plan (1) Altered mental status: Plan: Nonverbal, altered (at baseline) 83 F with PMH of MS, esophageal reflux, HLD, depression, atrial flutter w/RVR, history of DVTs, who [facility] for evaluation of vomiting x 1 day. Now admitted for further evaluation, management of vomiting, confusion. Confusion/Vomiting/AMS -[facility]. Borderline febrile, hypoxic to the low 80s on initial presentation. -WBC-16.55, lactate 2.2 (repeat 2.1, consider resolved). CT A/P: marked sigmoidal wall thickening. -Pertinent negatives: CT head, respiratory bio fire, procalcitonin, electrolytes -Nonverbal, confused at baseline, so unclear if this is new condition or simply at baseline. -As she has been vomiting, presentation concerning for aspiration, delirium 2/2 dehydration, or UTI, given her UA on arrival (also has history of recurrent UTI). -Low suspicion for intracranial process at this time (negative CT head). Elevated troponin likely demand ischemia awaiting a.m. labs -S/p empiric Zosyn, IV NS bolus x 1.5 L total in the ER. Blood, urine cultures also collected pending. * Admit to [facility] telemetry. Made n.p.o. (including all home meds) pending speech eval * Empiric IV abx: IV ceftriaxone 2 g every 24 hours + IV azithromycin 500 mg every 24 hours * IV Zofran 4 mg every 4 hours as needed for nausea/vomiting * Maintenance IVF: LR@80 mL/h * Fall, aspiration precautions. Straight cath as needed Esophageal Reflux * Held home p.o. pantoprazole * IV pantoprazole 40 mg push daily Atrial Flutter with RVR * Home metoprolol tartrate 25 mg twice daily. * Held home warfarin on admission. May restart in the a.m. * Holding p.o. metoprolol until after conclusion of speech/swallow evaluation * Trend PT/INR daily on a.m. labs Multiple Sclerosis * Home Copaxone 20 mg SQ every morning Constipation * Continue home MiraLAX every morning * Continue home Senokot a.m. at bedtime Frequent UTIs * Held methenamine. Now on IV CTX 2 g every 24 hours + IV azithromycin 500 mg daily * Await urine cultures, sensitivities Code: DNR/DNI Dispo: Med-Surg telemetry FEN/GI: NPO. LR @maintenance rate. DVT Prophylaxis: Warfarin 5 mg (held on admission) PT/OT: No Consults: None Case Management: (2) Confusion: (3) Vomiting: (4) Esophageal reflux: (5) Depression: (6) HLD (hyperlipidemia): (7) HTN (hypertension): (8) Multiple sclerosis: (9) Constipation: History of Present Illness Primary Care Provider: Connie Franco is an 83-year-old woman with a past medical history of SBO, pseudoobstruction, depression, ESBL-UTI, hypertension, hyperlipidemia, upper GI bleed, multiple sclerosis, who presented to the ER from [facility] with a complaint of vomiting since the evening of 02/20. Per [facility]itentiary staff, patient's emesis was dark brown, and she had had a bowel movement the day of arrival. She was last treated with Solu-Medrol and Benadryl following a reaction (lip swelling) to promethazine. The patient herself is unable to provide much HPI, she is nonverbal, flaccid, and confused at baseline. On her vital in the ER, she was found to be hypoxic on room air 87% improved to 94-95% on 2 L NC and borderline febrile at 37.9 C. Labs were notable for WBC-16.55, lactate-2.2 (2.1 on repeat), rj-bwakxmdi-74.3, Ca-10.4, PT/INR- 19.1/1.9. UA was notable for 1+ proteinuria, 2+ hematuria, 1+ bilirubinuria, trace leuk esterase, 3+ bacteriuria. Respiratory bio fire was negative, as was procalcitonin. CT A/P noted "marked thickening of the wall of the sigmoid colon." CTA chest noted interseptal thickening, esophageal wall thickening, emphysema. CT head was negative for acute intracranial findings. She received IV NS boluses x 1.5 L total, IV Tylenol 1000 mg x 1, as well as IV Zosyn 4.5 g x 1 dose hospitalist service was then consulted for admission. Allergies Allergy/AdvReac Type Severity Reaction Status Date / Time levofloxacin [From Levaquin] Allergy Unknown Unknown Verified 02/23/24 02:49 promethazine Allergy Unknown Verified 02/23/24 02:49 Home Medications Medication Instructions Recorded Confirmed Type Saccharomyces boulardii 250 mg 250 mg PO BID 02/23/24 02/23/24 History capsule (Florastor) acetaminophen 325 mg tablet 650 mg PO Q6 PRN Fever Or Pain 02/23/24 02/23/24 History (Tylenol) ascorbic acid (vitamin C) 1,000 mg 1 g PO AMHS 02/23/24 02/23/24 History tablet (Vitamin C) bisacodyl 10 mg rectal suppository 10 mg [place] HS 02/23/24 02/23/24 History cholecalciferol (vitamin D3) 25 25 mcg PO QAM 02/23/24 02/23/24 History mcg (1,000 unit) tablet (Vitamin D3) citalopram 10 mg tablet 10 mg PO DAILY 02/23/24 02/23/24 History cyanocobalamin (vitamin B-12) 1,000 mcg PO QAM 02/23/24 02/23/24 History 1,000 mcg tablet (Vitamin B-12) diphenhydramine HCl 25 mg tablet 25 mg PO Q6 PRN face swelling 02/23/24 02/23/24 History (Benadryl Allergy) eucalyptus-menthol oral mucosal 1 frankie mucous membrane .Q1HR PRN 02/23/24 02/23/24 History lozenge Sore Throat gabapentin 600 mg tablet 600 mg PO TID 02/23/24 02/23/24 History glatiramer 20 mg/mL subcutaneous 20 mg subcut QAM 02/23/24 02/23/24 History syringe (Copaxone) lip protective (padimate o) 1 ea topical QPM 02/23/24 02/23/24 History methenamine hippurate 1 gram tablet 1 g PO BID 02/23/24 02/23/24 History metoprolol tartrate 25 mg tablet 25 mg PO BID 02/23/24 02/23/24 History multivitamin 1 tab PO QAM 02/23/24 02/23/24 History ondansetron HCl 4 mg tablet 4 mg PO Q8 PRN Nausea 02/23/24 02/23/24 History pantoprazole 40 mg tablet,delayed 40 mg PO QAM 02/23/24 02/23/24 History release polyethylene glycol 3350 17 gram 17 g PO QAM 02/23/24 02/23/24 History oral powder packet (Miralax) potassium chloride 10 mEq 20 meq PO TID 02/23/24 02/23/24 History tablet,extended release sennosides 8.6 mg-docusate sodium 1 tab-cap PO AMHS 02/23/24 02/23/24 History 50 mg tablet (Senokot-S) tramadol 50 mg tablet 100 mg PO TID 02/23/24 02/23/24 History warfarin 5 mg tablet 5 mg PO QPM 02/23/24 02/23/24 History Past Med/Surg History Problem List (Updated 02/23/24 @ 05:58 by Sada Abebe PA-C) Vomiting (Acute) Fever (Acute) Vomiting Hypokalemia (Acute) Weakness (Acute) Esophageal reflux Altered mental status (Acute) Dehydration Hypernatremia Depression Hypomagnesemia Recurrent deep vein thrombosis (DVT) UTI due to extended-spectrum beta lactamase (ESBL) producing Escherichia coli (Acute) Pseudomonas infection Surgical wound, non healing (Acute) Generalized weakness (Acute) Head injury (Acute) Right hip pain (Acute) Scalp hematoma (Acute) Skin breakdown (Acute) Weakness (Acute) Cellulitis of left leg (Acute) Febrile illness (Acute) Headache (Acute) Meningitis (Acute) Weakness (Acute) HTN (hypertension) HLD (hyperlipidemia) Upper GI bleed (Acute) Chest pain (Acute) Encounter for pre-operative examination Coffee ground emesis Paraplegia DVT prophylaxis Sepsis (Acute) Vitamin B12 deficiency Hypotension UTI (urinary tract infection) (Acute) Confusion Complicated urinary tract infection (Acute) Cellulitis Abscess or cellulitis of chest wall Urinary retention Constipation Fever Abnormal urinalysis SVT (supraventricular tachycardia) Paraplegia Lymphedema of left leg (Chronic) History of multiple sclerosis (Chronic) Multiple sclerosis Left-sided weakness (Acute) Medical History Hypokalemia Depression Neurogenic bladder disorder Esophageal reflux History of depression Hx of decubitus ulcer History of closed head injury Hypoglycemia Necrotizing fasciitis Leukocytosis Endotracheally intubated Admitted to intensive care unit Encounter for pre-operative examination Abscess or cellulitis of chest wall Sepsis Catheter-associated urinary tract infection Sepsis Atrial flutter with rapid ventricular response Altered mental status DVT (deep venous thrombosis) [place] grade C esophagitis Esophagitis Thank you for allowing us to participate in the care of this patient. If you should have any further questions or concerns, don't hesitate to contact us at extension [phone] or [phone]. Esophagitis Urinary retention Constipation Fever Abnormal urinalysis SVT (supraventricular tachycardia) Paraplegia Lymphedema of left leg History of multiple sclerosis Multiple sclerosis Left-sided weakness Trigeminal neuralgia of left side of face Surgical History History of craniotomy History of incision and drainage (01/19/22) Left Breast and Chest Wall Incision Drainage and Debridement including soft tissue including muscle greater than 50cm squared(Left) - Hair Mcknight, DO, FACS Family History Other Family history non-contributory Social History Smoking Status: Unknown if ever smoked Preferred Language: [place]yr[place] Communication Ability: Unable Communication Ability Comment: patient was able to answer yes or no questions Belt Splicer Required: Yes Beliefs That Will Affect Care: None marital status: Current Living Situation: [facility]itentiary Current Living Situation Comment: Home Health Feels Safe at Home: Yes Assistive Devices: Wheelchair Review of Systems Review of Systems: All systems reviewed & are unremarkable except as noted in HPI & below Physical Exam Physical Exam: General: resting comfortably, in no acute distress Resp: good inspiratory effort, no labored breathing HEENT: No swelling noted face or lips Skin: skin appears dry, normal coloration, no rash visible on exposed skin areas Results & Data Results & Data Vital Signs (Past 12 Hours) Vital Signs Temp Pulse Pulse Resp BP BP Pulse Ox 02/23/24 01:03 63 14 100 02/23/24 01:00 159/74 H 02/23/24 01:00 159/74 H 02/23/24 00:57 76 14 98 02/23/24 00:32 134/49 L 02/23/24 00:32 134/49 L 02/23/24 00:32 134/49 L 02/23/24 00:32 134/49 L 02/23/24 00:30 72 19 90 02/23/24 00:06 69 15 91 02/23/24 00:05 98/72 L 02/23/24 00:05 98/72 L 02/23/24 00:05 98/72 L 02/23/24 00:05 98/72 L 02/23/24 00:00 37.2 C 76 14 98/72 L 98 02/22/24 23:57 100 02/22/24 23:03 75 16 96 02/22/24 23:00 141/62 H 02/22/24 23:00 141/62 H 02/22/24 23:00 141/62 H 02/22/24 22:59 97 02/22/24 22:51 84 24 92 02/22/24 22:30 66 14 135/72 97 02/22/24 22:06 67 15 123/68 95 02/22/24 21:57 80 02/22/24 21:51 37.9 C H 82 19 124/76 95 02/22/24 21:39 75 19 139/76 94 O2 Del Method O2 Flow Rate 02/23/24 01:03 02/23/24 01:00 02/23/24 01:00 02/23/24 00:57 Room Air 02/23/24 00:32 02/23/24 00:32 02/23/24 00:32 02/23/24 00:32 02/23/24 00:30 02/23/24 00:06 02/23/24 00:05 02/23/24 00:05 02/23/24 00:05 02/23/24 00:05 02/23/24 00:00 Room Air 02/22/24 23:57 02/22/24 23:03 02/22/24 23:00 02/22/24 23:00 02/22/24 23:00 02/22/24 22:59 Room Air 02/22/24 22:51 02/22/24 22:30 02/22/24 22:06 02/22/24 21:57 02/22/24 21:51 Nasal Cannula 2 02/22/24 21:39 Supervising Physician Co-Signing Physician Notes Patient seen and examined, chart reviewed, case discussed with Dr. Flaherty and I agree with the assessment and plan as above Resident Activity Tracking Resident Involvement: Resident Care Provided Care Provided: Adult Hospital Medicine (1) Altered mental status Altered mental status type: somnolence Qualified Code(s): R40.0 - Somnolence (6) HLD (hyperlipidemia) Hyperlipidemia type: unspecified Qualified Code(s): E78.5 - Hyperlipidemia, unspecified (7) HTN (hypertension) Hypertension type: essential hypertension Qualified Code(s): I10 - Essential (primary) hypertension
[2024-02-23 02:26] LABS: Appearance Urine Turbid (Clear); Bilirubin Urine 1+ (Negative); Blood Urine 2+ (Negative); Color Urine Dark Yellow; Glucose Urine UA Negative (Negative); Ketones Urine Negative (Negative); Leukocyte Esterase Urine Trace (Negative); Nitrite Urine Negative (Negative); Protein Urine 1+ (Negative); Specific Gravity Urine > 1.045 (1.000-1.030); Urobilinogen Urine Negative (Negative); pH Urine 5.5 (4.5-7.5)
[2024-02-23] MEDS: PIPERACILLIN/TAZOBACTAM 4.5 GM/100 ML BAG IV ONE (02:29)
[2024-02-23 02:44] LABS: Amorphous Sediment Urine Present (None Prsent); Bacteria Urine Automated 3+ (None Seen); Calcium Oxalate Crystals Urine Present (None Prsent)
[2024-02-23] MEDS ORDERED: ONDANSETRON INJ 2 MG/ML 2 ML VIAL IV PRN (03:36)
[2024-02-23] MEDS ORDERED: ACETAMINOPHEN 1,000 MG/100 ML VIAL IV PRN (03:37)
[2024-02-23] MEDS: LACTATED RINGER'S 1,000 ML IV SCH (03:50)
[2024-02-23 04:32] LABS: BUN Creatinine Ratio 30.7 (10-20); Creatinine Clr Calc Pharmacy 47.2 ml/min; Est GFR (African American) 58.8 ml/min; Est GFR (Non-African American) 50.7 ml/min; Potassium 3.2 mmol/L (3.5-5.1)
[2024-02-23 04:39] LABS: Troponin I High Sensitivity 16.7 pg/ml (0-14)
[2024-02-23 05:02] LABS: Prothrombin Time 20.8 Seconds (9.0-12.0)
--- NOTE | 2024-02-23 06:37 | Billing Data ---
Date of Service February 23, 2024 Coding Level of Care Code 02184 INT INP/OBS CARE
--- NOTE | 2024-02-23 07:01 | Electrocardiogram Report ---
Test Reason : Blood Pressure : / mmHG Vent. Rate : 141 BPM Atrial Rate : 000 BPM P-R Int : 000 ms QRS Dur : 066 ms QT Int : 320 ms P-R-T Axes : 000 -34 040 degrees QTc Int : 490 ms Poor data quality, interpretation may be adversely affected sinus rhythm Left axis deviation Minimal voltage criteria for LVH, may be normal variant Nonspecific ST abnormality Abnormal ECG When compared with ECG of 15-NOV-2023 14:11, Vent. rate has increased BY 61 BPM Confirmed by Issac Carvajal ([id number]) on 02/23/2024 7:01:01 AM Referred By: [facility] Confirmed By:Gamaliel Carvajal
[2024-02-23] MEDS: cefTRIAXone SODIUM 2,000 MG/50 ML BAG IV SCH (07:58)
--- NOTE | 2024-02-23 07:59 | XRay Report ---
XR chest 1V portable HISTORY: possible aspiration COMPARISON: Chest 11/15/2023. Chest CTA 02/22/2024. FINDINGS: No pneumothorax. No pleural effusions. The cardiac silhouette is top normal in size. No lauro dence for pulmonary edema. Bibasilar densities persist. This favors subsegmental atelectasis or scarr ing. No new focal lung consolidations identified. Calcifications within the aortic knob. Degenerative changes within the shoulders. IMPRESSION: 1. No significant change in the bibasilar linear densities which favors subsegmental atelectasis or s carring. 2. No new focal lung consolidations to suggest a pneumonia. ACT 112: Negative or not required by law. Electronically signed by: Michael Smith M.D. 02/23/2024 7:56 AM
[2024-02-23] MEDS: AZITHROMYCIN 500 MG in DEXTROSE 5% 250 ML IV SCH (10:23)
[2024-02-23] MEDS ORDERED: PANTOprazole 40 MG in SYRINGE 0 ML IV SCH (11:00)
[2024-02-23] MEDS: CITALOPRAM 20 MG TAB PO SCH (11:41)
[2024-02-23] MEDS: DOCUSATE SODIUM/SENNA 50/8.6MG TAB PO SCH (11:42)
[2024-02-23] MEDS: CYANOCOBALAMIN (B-12) 500 MCG TABLET PO SCH (11:42)
[2024-02-23] MEDS: METOPROLOL TARTRATE 25 MG TAB PO SCH (11:42)
[2024-02-23] MEDS: GABAPENTIN 600 MG TAB PO SCH (11:42)
[2024-02-23] MEDS: POTASSIUM CHLORIDE CRTAB 20 MEQ TABCR PO SCH (11:43)
[2024-02-23] MEDS: SACCHAROMYCES BOULARDII 250 MG CAP PO SCH (11:43)
[2024-02-23] MEDS: POLYETHYLENE (MIRALAX) 17 GM PACK PO SCH (11:43)
[2024-02-23] MEDS: PANTOprazole 40 MG TAB PO SCH (11:43)
[2024-02-23] MEDS ORDERED: methylPREDNISolone 10 mg/mL (For Ped Dose < 7mg) IV SCH (13:15)
[2024-02-23] MEDS: methylPREDNISolone 40 MG in SYRINGE 0 ML IV SCH (14:15)
--- NOTE | 2024-02-23 15:47 | Hospitalist Progress Note ---
Date of Service February 23, 2024 Assessment & Plan (1) Altered mental status: Plan: Suspect acute metabolic encephalopathy on admission. Supportive care. Nonverbal, altered (at baseline) 83 F with PMH of MS, esophageal reflux, HLD, depression, atrial flutter w/RVR, history of DVTs, who presented from long-term for evaluation of vomiting x 1 day. Now admitted for further evaluation, management of vomiting, confusion. (2) Acute respiratory failure with hypoxia: Plan: Supplemental oxygen to maintain saturation greater than 90%. Wean off as tolerated (3) Aspiration into lower respiratory tract: Plan: Suspected. Speech therapy evaluation. Supportive care. Parenteral steroid therapy for now. (4) Esophageal reflux: Plan: Stable. Continue PPI therapy (5) Depression: Plan: Stable. Continue current medical management (6) HLD (hyperlipidemia): Plan: Stable. Continue current medical management (7) HTN (hypertension): Plan: Stable. Continue current medical management (8) Multiple sclerosis: Plan: Stable. Continue current medical management Plan Hopeful return to previous living arrangements within the next day or 2 Admission and Anticipated Discharge Date Admission Date: February 23, 2024 Subjective Awake but nonverbal. She has severe baseline dementia. DNR/DNI status. There is some concern of aspiration. Portable chest x-ray is most consistent with atelectasis. However, she is not able to participate with incentive spirometry. She is now on parenteral steroid therapy. IV fluids have been tapered down. INR is therapeutic at 2.0. Oxygen saturation is 99% on 2 L oxygen. Review of Systems 2 Review of Systems: The patient is nonverbal and unable to answer any questions regarding review of systems at this time Physical Exam 2 Physical Exam: General-awake but nonverbal. No apparent distress. No fever HEENT-head atraumatic and normocephalic, pupils equal and reactive to light, extraocular muscles intact Neck-no lymphadenopathy or thyromegaly, trachea midline Chest-diminished breath sounds bilaterally from anterior approach. No wheezing. Cardiac-regular rate and rhythm, normal S1 and S2 Abdomen-normal bowel sounds, no hepatosplenomegaly Extremities-no cyanosis, clubbing, or edema Neuro-cranial nerves II through XII intact, she does not voluntarily move any extremity. Psych-severe baseline dementia. Nonverbal. Cannot assess Results & Data Results & Data Vital Signs (Past 12 Hours) Vital Signs Pulse Pulse Resp BP BP Pulse Ox O2 Del Method 02/23/24 15:25 77 02/23/24 15:16 73 16 145/75 H 95 Nasal Cannula 02/23/24 13:24 59 L 16 114/60 96 Nasal Cannula 02/23/24 12:00 68 17 127/67 94 Nasal Cannula 02/23/24 11:34 Nasal Cannula 02/23/24 11:33 60 18 136/71 93 Nasal Cannula 02/23/24 08:00 58 L 17 140/72 96 Nasal Cannula 02/23/24 07:20 58 L 02/23/24 05:30 165/75 H 02/23/24 05:30 165/75 H 02/23/24 05:30 165/75 H 02/23/24 05:20 66 19 99 02/23/24 05:05 66 17 99 02/23/24 04:30 138/72 02/23/24 04:30 138/72 02/23/24 04:29 61 14 99 Nasal Cannula 02/23/24 04:18 89 L Room Air 02/23/24 04:07 93 Room Air 02/23/24 04:02 58 L 15 99 02/23/24 04:00 124/63 02/23/24 04:00 124/63 02/23/24 04:00 124/63 02/23/24 03:56 58 L 15 97 O2 Flow Rate 02/23/24 15:25 02/23/24 15:16 02/23/24 13:24 2 02/23/24 12:00 2 02/23/24 11:34 2 02/23/24 11:33 2 02/23/24 08:00 2 02/23/24 07:20 02/23/24 05:30 02/23/24 05:30 02/23/24 05:30 02/23/24 05:20 02/23/24 05:05 02/23/24 04:30 02/23/24 04:30 02/23/24 04:29 2 02/23/24 04:18 02/23/24 04:07 02/23/24 04:02 02/23/24 04:00 02/23/24 04:00 02/23/24 04:00 02/23/24 03:56 Laboratory Results 02/22/24 21:42 02/23/24 03:58 PG Care Time/CCT Total # of Minutes Spent Total Time Spent with Patient: Total time spent is greater than 50% in coordination of care (as documented) at patient's floor/unit and/or counseling patient: Coding Level of Care Code 51198 SUB INP/OBS CARE 3/50MIN Diagnoses Altered mental status R41.82 Altered mental status type: unspecified Acute respiratory failure with hypoxia J96.01 Aspiration into lower respiratory tract T17.800A Esophageal reflux K21.9 Depression F32.A Hyperlipidemia, unspecified hyperlipidemia type E78.5 Hyperlipidemia type: unspecified Essential hypertension I10 Hypertension type: essential hypertension Multiple sclerosis G35 (1) Altered mental status Altered mental status type: unspecified Qualified Code(s): R41.82 - Altered mental status, unspecified (6) HLD (hyperlipidemia) Hyperlipidemia type: unspecified Qualified Code(s): E78.5 - Hyperlipidemia, unspecified (7) HTN (hypertension) Hypertension type: essential hypertension Qualified Code(s): I10 - Essential (primary) hypertension
[2024-02-23] MEDS: bisacodyL 10 MG SUPP PR SCH (20:58)
[2024-02-24 07:39] LABS: Hematocrit (blood only) 40.1 % (37.0-47.0); Hemoglobin 12.1 g/dl (12.0-16.0); Mean Corpuscular Hemoglobin 28.4 pg (25.0-34.0); Mean Corpuscular Hgb Conc 30.2 g/dL (32.0-36.0); Mean Corpuscular Volume 94.1 fL (80.0-100.0); Mean Platelet Volume 10.9 fL (9.4-12.4); Platelet Count 287 K/uL (130-400); RDW Coefficient of Variation 14.3 % (11.5-14.5); RDW Standard Deviation 49.4 fL (36.4-46.3); Red Blood Count 4.26 M/uL (4.20-5.40); White Blood Count 8.82 K/ul (4.8-10.8)
[2024-02-24 08:36] LABS: BUN Creatinine Ratio 37.3 (10-20); Calcium 9.1 mg/dl (8.6-10.3); Creatinine Clr Calc Pharmacy 71.1 ml/min; Est GFR (African American) 92.9 ml/min; Est GFR (Non-African American) 80.2 ml/min; Potassium 3.4 mmol/L (3.5-5.1)
[2024-02-24 08:59] LABS: Prothrombin Time 20.6 Seconds (9.0-12.0)
--- NOTE | 2024-02-24 12:16 | Discharge Summary ---
Discharge Summary Date of Service February 24, 2024 Principal Dx & Hospital Course #1 = Principal Diagnosis (1) Altered mental status: Suspect acute metabolic encephalopathy on admission. Now resolved. She is speaking coherently to me today. (2) Acute respiratory failure with hypoxia: Resolved. She is now on room air. This probably occurred from aspiration of gastric contents associated with vomiting (3) Aspiration into lower respiratory tract: Suspected on admission. Supportive care. Treated while hospitalized with parenteral steroid therapy (4) Esophageal reflux: Stable. Continue PPI therapy (5) Depression: Stable. Continue current medical management (6) HLD (hyperlipidemia): Stable. Continue current medical management (7) HTN (hypertension): Stable. Continue current medical management (8) Multiple sclerosis: Stable. Continue current medical management Plan Return to [place] care today, February 23 Admission HPI Per Admitting Provider Joan is an 83-year-old woman with a past medical history of SBO, pseudoobstruction, depression, ESBL-UTI, hypertension, hyperlipidemia, upper GI bleed, multiple sclerosis, who presented to the ER from [facility] with a complaint of vomiting since the evening of 02/20. Per care home staff, patient's emesis was dark brown, and she had had a bowel movement the day of arrival. She was last treated with Solu-Medrol and Benadryl following a reaction (lip swelling) to promethazine. The patient herself is unable to provide much HPI, she is nonverbal, flaccid, and confused at baseline. On her vital in the ER, she was found to be hypoxic on room air 87% improved to 94-95% on 2 L NC and borderline febrile at 37.9 C. Labs were notable for WBC-16.55, lactate-2.2 (2.1 on repeat), xc-uibclccv-87.3, Ca-10.4, PT/INR- 19.1/1.9. UA was notable for 1+ proteinuria, 2+ hematuria, 1+ bilirubinuria, trace leuk esterase, 3+ bacteriuria. Respiratory bio fire was negative, as was procalcitonin. CT A/P noted "marked thickening of the wall of the sigmoid colon." CTA chest noted interseptal thickening, esophageal wall thickening, emphysema. CT head was negative for acute intracranial findings. She received IV NS boluses x 1.5 L total, IV Tylenol 1000 mg x 1, as well as IV Zosyn 4.5 g x 1 dose hospitalist service was then consulted for admission. Discharge Exam General-alert and oriented x3, no fever, no chills HEENT-head atraumatic and normocephalic, pupils equal and reactive to light, extraocular muscles intact Neck-no lymphadenopathy or thyromegaly, trachea midline Chest-clear to auscultation. No rales, wheezing or rhonchi Cardiac-regular rate and rhythm, normal S1 and S2 Abdomen-normal bowel sounds, no hepatosplenomegaly Extremities-no cyanosis, clubbing, or edema Neuro-cranial nerves II through XII intact, motor and sensory function within normal limits, strength symmetrical, no focal deficits Psych-normal affect, normal mood Updated Medication List Medication Instructions Recorded Confirmed Type Saccharomyces boulardii 250 mg 250 mg PO BID 02/23/24 02/23/24 History capsule (Florastor) acetaminophen 325 mg tablet 650 mg PO Q6 PRN Fever Or Pain 02/23/24 02/23/24 History (Tylenol) ascorbic acid (vitamin C) 1,000 mg 1 g PO AMHS 02/23/24 02/23/24 History tablet (Vitamin C) bisacodyl 10 mg rectal suppository 10 mg [place] HS 02/23/24 02/23/24 History cholecalciferol (vitamin D3) 25 25 mcg PO QAM 02/23/24 02/23/24 History mcg (1,000 unit) tablet (Vitamin D3) citalopram 10 mg tablet 10 mg PO DAILY 02/23/24 02/23/24 History cyanocobalamin (vitamin B-12) 1,000 mcg PO QAM 02/23/24 02/23/24 History 1,000 mcg tablet (Vitamin B-12) diphenhydramine HCl 25 mg tablet 25 mg PO Q6 PRN face swelling 02/23/24 02/23/24 History (Benadryl Allergy) eucalyptus-menthol oral mucosal 1 frankie mucous membrane .Q1HR PRN 02/23/24 02/23/24 History lozenge Sore Throat gabapentin 600 mg tablet 600 mg PO TID 02/23/24 02/23/24 History glatiramer 20 mg/mL subcutaneous 20 mg subcut QAM 02/23/24 02/23/24 History syringe (Copaxone) lip protective (padimate o) 1 ea topical QPM 02/23/24 02/23/24 History methenamine hippurate 1 gram tablet 1 g PO BID 02/23/24 02/23/24 History metoprolol tartrate 25 mg tablet 25 mg PO BID 02/23/24 02/23/24 History multivitamin 1 tab PO QAM 02/23/24 02/23/24 History ondansetron HCl 4 mg tablet 4 mg PO Q8 PRN Nausea 02/23/24 02/23/24 History pantoprazole 40 mg tablet,delayed 40 mg PO QAM 02/23/24 02/23/24 History release polyethylene glycol 3350 17 gram 17 g PO QAM 02/23/24 02/23/24 History oral powder packet (Miralax) potassium chloride 10 mEq 20 meq PO TID 02/23/24 02/23/24 History tablet,extended release sennosides 8.6 mg-docusate sodium 1 tab-cap PO AMHS 02/23/24 02/23/24 History 50 mg tablet (Senokot-S) tramadol 50 mg tablet 100 mg PO TID 02/23/24 02/23/24 History warfarin 5 mg tablet 5 mg PO QPM 02/23/24 02/23/24 History Hospital Stay Data Consultations 02/23/24 01:50 ED Decision to Admit Stat Diagnostic Imagining Performed 02/22/24 22:07 CT angio chest PE protocol Stat CT head/brain wo con Stat 02/22/24 22:08 CT abd pelvis IV con only Stat Pending Results Patient Have Any Pending Studies at Discharge: No Discharge Instructions Given to Patient (Per Discharging Provider) All medications remain the same Total Time Total Time Spent Total Time Spent (In Minutes): 45 minutes Supervising Physician Co-Signing Physician Notes Patient seen and examined, chart reviewed, case discussed with Dr. Flaherty and I agree with the assessment and plan as above Coding Level of Care Code 55891 INP/OBS DISCH >30 MIN Diagnoses Altered mental status R41.82 Altered mental status type: unspecified Acute respiratory failure with hypoxia J96.01 Aspiration into lower respiratory tract T17.800A Esophageal reflux K21.9 Depression F32.A Hyperlipidemia, unspecified hyperlipidemia type E78.5 Hyperlipidemia type: unspecified Essential hypertension I10 Hypertension type: essential hypertension Multiple sclerosis G35
[2024-02-24] MEDS ORDERED: PNEUMOCOCCAL VACCINE (PCV20) 20-VAL CONJ-DIP CRM/PF 0.5 ML SYR IM ONE (22:11)
== END 2024-02-24 13:00 | DRG 689 ==
LOC: ED 21:17 → EDINP 02-23 02:08 → SUATTDRO 02-23 02:08 → 2W 02-24 00:34

== ENCOUNTER 2024-05-14 23:20 | Inpatient (IN) ==
--- NOTE | 2024-05-14 23:34 | Emergency Department Note ---
Impression & Plan Septic shock, TATIANA (acute kidney injury), Acute alteration in mental status, Hypoxia, Supratherapeutic INR, Acute upper GI bleed ED Provider Note Name: CJ KEITA Age: 83 Sex: Female Arrives Via: Ambulance Informant: EMS, nursing staff report from nursing facility, patient family ED Provider: Ryan Caputo MD Chief Complaint: Altered mental status Impression: As per impressions above Medical Decision Makin-year-old female with extensive past medical history who recently completed course of Macrobid for UTI. She arrives altered/obtunded, hypotensive, tachycardic, hypoxic, febrile. Quick review of chart and discussion over phone with son confirms patient is DNR DNI however medications fluids antibiotics are acceptable. Septic workup initiated. She had received initial liter of fluid and route by EMS. Second liter was started by us while attempting to obtain laboratory workup. Patient appears to have been vomiting blood and then had a large bloody bowel movement. In the setting of hypotension, Coumadin use, and active bleeding pt was empirically given 1 unit of uncrossed matched blood after talking with son who agrees and while awaiting laboratory testing. Blood pressure mildly improved but started trending down again and thus given second liter here. Pressors were initiated at this point due to persistent hypotension and evidence of septic shock. Laboratory testing did end up starting to come back. Noted significant elevation in white blood cell count, lactic acid, troponin, creatinine, procalcitonin amongst others further confirming evidence of sepsis. [place] catheter placed with no urine output. She is at this point oliguric throughout ER stay despite IV fluids and initiation of pressors. Hemoglobin ended up returning relatively stable at 13. Further transfusion will be held as no further bleeding and blood pressure is stabilizing on pressors. She was given IV vitamin K assuming an elevated INR which did end up returning elevated at 7. After initial resuscitation patient is much more awake she is looking around room though she is not quite to the point of talking yet. Will hold off on CT imaging of head given need to focus on stabilizing her further and likelihood that altered mental status/encephalopathy secondary to infectious etiology and hypotension. Multiple evaluations patient throughout her stay with repeat discussions with family. They are well aware of how ill she is and that the next few hours will sorted determine direction she is going to take. Critical care was down to evaluate her as well as hospitalist and plan to admit to ICU for further management and monitoring. Given known recent UTI I suspect that is the primary cause. She does not have any peritonitis on examination. Chest x-ray is not overtly concerning for a lobar infiltrate. Will hold off on CT imaging of the chest and pelvis at this point pending resuscitation monitoring efforts. Patient was given empiric IV antibiotics broad-spectrum for presumed infectious with septic shock. Triage/Nursing Notes reviewed by Me Sepsis Fluid Resuscitation: Patient was resuscitated with 2 L of normal saline bolus while here in the department rather than 30 mL/kg IV fluids. This was due to concerns for fluid overload and in the setting of TATIANA. Sepsis reevaluation: Patient reevaluated at 2:20 AM on 05/15/2024 by me. Sepsis reevaluation completed by me. Patient's blood pressure has begun improving while on Levophed. Blood pressure is currently 107/65. Heart rate has decreased to 95bpm. Oxygen is 98% on 10 L nasal cannula. Cap refill is intact. Breathing is moderately increased with some mild crackles noted continued. Patient continues to be improving mental status but is not back to baseline. External Chart Review by me: Discharge summary from February 2024 reviewed by me discussing recent hospitalization for UTI sepsis Differential:Infection, dehydration, metabolic abnormality, hypo/hyperglycemia, electrolyte disturbance, anemia, hypoxia, cardiac sources, intracerebral event, toxicologic, neurologic, as well as other pathologies. Vital Signs: reviewed and remarkable for hypotension, tachycardia, hypoxia, febrile Interventions: Normal saline bolus 2 L IV, Zosyn IV, vancomycin IV, Tylenol IV, vitamin K IV, 1 unit PRBC, Levophed Labs:ED labs Reviewed by me and remarkable for extensive laboratory abnormalities noted Imagin view chest x-ray. Congestive findings with poor inspiratory effort though no lobar infiltrate appreciated per my interpretation. EKG:As per my interpretation. Indication tachycardia. Sinus tachycardia 140 bpm without ectopy nor ischemia. QTc of 430. When compared to EKG of February 22, 2024 she is no longer in A-fib. Cardiac/Tele Monitoring: Cardiac Monitoring: An Order was placed for continuous cardiac monitoring. The monitor shows a rate of 12 with a sinus tach rhythm. Consults:Discussed with Tye LONGO of critical care who will evaluate further and discussed case with family with plan for close monitoring on the next few hours in the ICU. Discussed with Dr. Macario of the hospitalist service who will further evaluate and manage Plan: Disposition:Hospitalization. Condition: Critical History of Present Illness: 83-year-old female arrives for evaluation of altered mental status. Patient with a long history of recurrent UTIs and lives at local nursing facility. Apparently has been treated for UTI recently with Macrobid. Worsening altered mental status throughout the day. No real further information available. Patient arrives via EMS. She received roughly 100 mL of fluid prior to arrival. Hypotensive, tachycardic, hypoxic, unresponsive. Per nursing staff and per nursing facility patient is DNR/DNI but is not hospice or comfort care as they are aware. Past Medical History:See Below -per chart review patient is on Coumadin. Home Medications:See Below Allergies:See Below Vitals:Blood Pressure: 73/51, Pulse 140, RR 44, T 39.4C, O2 82% on RA Physical Exam: GENERAL: Patient is unwell appearing and obtunded, periodically looking around room RESPIRATORY: Diffusely junky lung sounds CARDIOVASCULAR: Tachy.No murmur appreciated. GASTROINTESTINAL: Abdomen soft, non-tender, no peritonitis. EXTREMITIES: wasting extremities, pulses weak all four NEUROLOGIC: obtunded, no movement of legs SKIN: No rash, no jaundice, no diaphoresis. ED Course: Times/Reassessments: Many repeat evaluations of patient throughout her stay. Mild improvement in blood pressure with fluids and initial unit PRBC however pressures dropped and eventually required pressors. Family at bedside shortly after arrival and agreeable with approach and plan that was being taken. Critical Care: I have personally spent 90 minutes of critical care time in the direct management of this patient. Septic shock secondary to presumed UTI requiring resuscitation, pressors and extensive discussions and management. This was a life/limb threatening event. This 90 minutes is in excess of all separately billable procedures. Ryan Caputo MD Past Med/Surg History Problem List (Updated 05/15/24 @ 02:55 by QING Bah) Supratherapeutic INR Septic shock Shock, unspecified Acute respiratory failure with hypoxia Aspiration into lower respiratory tract Vomiting (Acute) Fever (Acute) Hypokalemia (Acute) Weakness (Acute) Altered mental status (Acute) Dehydration Hypernatremia Hypomagnesemia Recurrent deep vein thrombosis (DVT) UTI due to extended-spectrum beta lactamase (ESBL) producing Escherichia coli (Acute) Pseudomonas infection Surgical wound, non healing (Acute) Generalized weakness (Acute) Head injury (Acute) Right hip pain (Acute) Scalp hematoma (Acute) Skin breakdown (Acute) Weakness (Acute) Cellulitis of left leg (Acute) Febrile illness (Acute) Headache (Acute) Meningitis (Acute) Weakness (Acute) Upper GI bleed (Acute) Chest pain (Acute) Encounter for pre-operative examination Coffee ground emesis Paraplegia DVT prophylaxis Sepsis (Acute) Vitamin B12 deficiency Hypotension UTI (urinary tract infection) (Acute) Complicated urinary tract infection (Acute) Cellulitis Abscess or cellulitis of chest wall Urinary retention Fever Abnormal urinalysis SVT (supraventricular tachycardia) Paraplegia Lymphedema of left leg (Chronic) History of multiple sclerosis (Chronic) Left-sided weakness (Acute) Medical History Hypokalemia Depression Neurogenic bladder disorder Esophageal reflux History of depression Hx of decubitus ulcer History of closed head injury Hypoglycemia Necrotizing fasciitis Leukocytosis Endotracheally intubated Admitted to intensive care unit Encounter for pre-operative examination Abscess or cellulitis of chest wall Sepsis Catheter-associated urinary tract infection Sepsis Atrial flutter with rapid ventricular response Altered mental status DVT (deep venous thrombosis) Coryell grade C esophagitis Esophagitis Thank you for allowing us to participate in the care of this patient. If you should have any further questions or concerns, don't hesitate to contact us at [phone] or [phone]. Esophagitis Urinary retention Constipation Fever Abnormal urinalysis SVT (supraventricular tachycardia) Paraplegia Lymphedema of left leg History of multiple sclerosis Multiple sclerosis Left-sided weakness Trigeminal neuralgia of left side of face Surgical History History of craniotomy History of incision and drainage (01/19/22) Left Breast and Chest Wall Incision Drainage and Debridement including soft tissue including muscle greater than 50cm squared(Left) - Hair Mcknight DO, FACS Family History Other Family history non-contributory Social History Smoking Status: Unknown if ever smoked Hx Alcohol Use: No Hx Substance Use: No Preferred Language: Azeri Communication Ability: Unable Communication Ability Comment: patient was able to answer yes or no questions Tugboat Dispatcher Required: No Beliefs That Will Affect Care: None marital status: Current Living Situation: [facility] Current Living Situation Comment: Home Health Feels Safe at Home: Yes Assistive Devices: Wheelchair Allergies Allergies Allergy/AdvReac Type Severity Reaction Status Date / Time levofloxacin [From Levaquin] Allergy Unknown Unknown Verified 02/23/24 02:49 promethazine Allergy Unknown Verified 02/23/24 02:49 Home Meds Home Medications Medication Instructions Recorded Confirmed Saccharomyces boulardii 250 mg 250 mg PO BID 02/23/24 05/15/24 capsule (Florastor) acetaminophen 325 mg tablet 650 mg PO Q6 PRN Fever Or Pain 02/23/24 05/15/24 (Tylenol) ascorbic acid (vitamin C) 1,000 mg 1 g PO AMHS 02/23/24 05/15/24 tablet (Vitamin C) bisacodyl 10 mg rectal suppository 10 mg [place] HS 02/23/24 05/15/24 cholecalciferol (vitamin D3) 25 25 mcg PO QAM 02/23/24 05/15/24 mcg (1,000 unit) tablet (Vitamin D3) citalopram 10 mg tablet 10 mg PO DAILY 02/23/24 05/15/24 cyanocobalamin (vitamin B-12) 1,000 mcg PO QAM 02/23/24 05/15/24 1,000 mcg tablet (Vitamin B-12) gabapentin 600 mg tablet 600 mg PO TID 02/23/24 05/15/24 glatiramer 20 mg/mL subcutaneous 20 mg subcut QAM 02/23/24 05/15/24 syringe (Copaxone) lip protective (padimate o) 1 ea topical QPM 02/23/24 05/15/24 methenamine hippurate 1 gram tablet 1 g PO BID 02/23/24 05/15/24 metoprolol tartrate 25 mg tablet 25 mg PO BID 02/23/24 05/15/24 multivitamin 1 tab PO QAM 02/23/24 05/15/24 ondansetron HCl 4 mg tablet 4 mg PO Q8 PRN Nausea 02/23/24 05/15/24 pantoprazole 40 mg tablet,delayed 40 mg PO QAM 02/23/24 05/15/24 release polyethylene glycol 3350 17 gram 17 g PO QAM 02/23/24 05/15/24 oral powder packet (Miralax) potassium chloride 10 mEq 20 meq PO TID 02/23/24 05/15/24 tablet,extended release sennosides 8.6 mg-docusate sodium 1 tab-cap PO AMHS 02/23/24 05/15/24 50 mg tablet (Senokot-S) tramadol 50 mg tablet 100 mg PO TID 02/23/24 05/15/24 warfarin 5 mg tablet 5 mg PO QPM 02/23/24 05/15/24 Results & Data (ED) Vital Signs Vital Signs - 24 hr 05/14/24 23:22 05/14/24 23:29 05/14/24 23:30 Temperature Temperature Source Pulse Rate 137 H 140 H 138 H Pulse Rate [Apical] Pulse Rate from SpO2 Sensor 148 H Pulse Rhythm Respiratory Rate 44 H 48 H Respiratory Effort / Characteristics Labored Respiratory Depth Blood Pressure 73/51 L 77/58 L Blood Pressure [Left Arm] Blood Pressure Mean 58 64 Blood Pressure Mean [Left Arm] Pulse Oximetry 87 L 97 Oxygen Delivery Method Room Air Oxygen Flow Rate Sepsis Recent Fever Within 48 Hours No Sepsis New/Unexplained Change in Mental Status Yes Sepsis Action Taken by Nursing Physician Notified 05/14/24 23:36 05/14/24 23:40 05/14/24 23:43 Temperature 39.4 C H Temperature Source Rectal Pulse Rate 130 H Pulse Rate [Apical] 125 H Pulse Rate from SpO2 Sensor 130 H Pulse Rhythm Respiratory Rate 43 H 31 H Respiratory Effort / Characteristics Respiratory Depth Blood Pressure 90/65 L 85/58 L Blood Pressure [Left Arm] 77/56 L Blood Pressure Mean 73 61 Blood Pressure Mean [Left Arm] 63 Pulse Oximetry 88 L 92 Oxygen Delivery Method Oxymask Oxygen Flow Rate 15 Sepsis Recent Fever Within 48 Hours Sepsis New/Unexplained Change in Mental Status Sepsis Action Taken by Nursing 05/14/24 23:45 05/14/24 23:47 05/14/24 23:48 Temperature Temperature Source Pulse Rate 125 H 124 H Pulse Rate [Apical] Pulse Rate from SpO2 Sensor 125 H 124 H Pulse Rhythm Respiratory Rate 33 H 41 H Respiratory Effort / Characteristics Respiratory Depth Blood Pressure 77/56 L 77/56 L 82/52 L Blood Pressure [Left Arm] Blood Pressure Mean 62 63 62 Blood Pressure Mean [Left Arm] Pulse Oximetry 91 91 Oxygen Delivery Method Oxygen Flow Rate Sepsis Recent Fever Within 48 Hours Sepsis New/Unexplained Change in Mental Status Sepsis Action Taken by Nursing 05/14/24 23:51 05/15/24 00:00 05/15/24 00:04 Temperature Temperature Source Pulse Rate 127 H Pulse Rate [Apical] 125 H Pulse Rate from SpO2 Sensor 128 H Pulse Rhythm Respiratory Rate 23 35 H Respiratory Effort / Characteristics Labored Respiratory Depth Blood Pressure 82/52 L 89/55 L Blood Pressure [Left Arm] 87/55 L Blood Pressure Mean 69 66 Blood Pressure Mean [Left Arm] 65 Pulse Oximetry 93 96 Oxygen Delivery Method Oxymask Oxygen Flow Rate 15 Sepsis Recent Fever Within 48 Hours Sepsis New/Unexplained Change in Mental Status Sepsis Action Taken by Nursing 05/15/24 00:04 05/15/24 00:10 05/15/24 00:10 Temperature Temperature Source Pulse Rate Pulse Rate [Apical] Pulse Rate from SpO2 Sensor Pulse Rhythm Respiratory Rate Respiratory Effort / Characteristics Respiratory Depth Blood Pressure 78/57 L 78/57 L Blood Pressure [Left Arm] Blood Pressure Mean 66 66 Blood Pressure Mean [Left Arm] Pulse Oximetry Oxygen Delivery Method Oxymask Oxygen Flow Rate Sepsis Recent Fever Within 48 Hours Sepsis New/Unexplained Change in Mental Status Sepsis Action Taken by Nursing 05/15/24 00:15 05/15/24 00:15 05/15/24 00:15 Temperature Temperature Source Pulse Rate Pulse Rate [Apical] Pulse Rate from SpO2 Sensor Pulse Rhythm Respiratory Rate Respiratory Effort / Characteristics Respiratory Depth Blood Pressure 87/58 L 87/58 L 87/58 L Blood Pressure [Left Arm] Blood Pressure Mean 69 69 69 Blood Pressure Mean [Left Arm] Pulse Oximetry Oxygen Delivery Method Oxygen Flow Rate Sepsis Recent Fever Within 48 Hours Sepsis New/Unexplained Change in Mental Status Sepsis Action Taken by Nursing 05/15/24 00:17 05/15/24 00:20 05/15/24 00:20 Temperature Temperature Source Pulse Rate 117 H 116 H Pulse Rate [Apical] Pulse Rate from SpO2 Sensor 117 H 117 H Pulse Rhythm Respiratory Rate 31 H 33 H Respiratory Effort / Characteristics Respiratory Depth Blood Pressure 98/64 L 98/64 L Blood Pressure [Left Arm] Blood Pressure Mean 75 72 Blood Pressure Mean [Left Arm] Pulse Oximetry 96 95 Oxygen Delivery Method Oxygen Flow Rate Sepsis Recent Fever Within 48 Hours Sepsis New/Unexplained Change in Mental Status Sepsis Action Taken by Nursing 05/15/24 00:25 05/15/24 00:30 05/15/24 00:30 Temperature Temperature Source Pulse Rate Pulse Rate [Apical] Pulse Rate from SpO2 Sensor Pulse Rhythm Respiratory Rate Respiratory Effort / Characteristics Respiratory Depth Blood Pressure 89/66 L 96/62 L 96/62 L Blood Pressure [Left Arm] Blood Pressure Mean 80 76 76 Blood Pressure Mean [Left Arm] Pulse Oximetry Oxygen Delivery Method Oxygen Flow Rate Sepsis Recent Fever Within 48 Hours Sepsis New/Unexplained Change in Mental Status Sepsis Action Taken by Nursing 05/15/24 00:30 05/15/24 00:35 05/15/24 00:35 Temperature Temperature Source Pulse Rate Pulse Rate [Apical] Pulse Rate from SpO2 Sensor Pulse Rhythm Respiratory Rate Respiratory Effort / Characteristics Respiratory Depth Blood Pressure 96/62 L 98/61 L 98/61 L Blood Pressure [Left Arm] Blood Pressure Mean 76 68 68 Blood Pressure Mean [Left Arm] Pulse Oximetry Oxygen Delivery Method Oxygen Flow Rate Sepsis Recent Fever Within 48 Hours Sepsis New/Unexplained Change in Mental Status Sepsis Action Taken by Nursing 05/15/24 00:35 05/15/24 00:41 05/15/24 00:45 Temperature 38.7 C H 38.7 C H Temperature Source [place] Cath ( Temp Sensing) Pulse Rate 110 H 110 H 109 H Pulse Rate [Apical] Pulse Rate from SpO2 Sensor 111 H 109 H Pulse Rhythm Regular Respiratory Rate 26 H 29 H 28 H Respiratory Effort / Characteristics Respiratory Depth Blood Pressure 100/66 107/61 Blood Pressure [Left Arm] Blood Pressure Mean 77 76 Blood Pressure Mean [Left Arm] Pulse Oximetry 94 96 97 Oxygen Delivery Method Non-rebreather Oxygen Flow Rate 15 15 Sepsis Recent Fever Within 48 Hours Sepsis New/Unexplained Change in Mental Status Sepsis Action Taken by Nursing 05/15/24 00:50 05/15/24 01:05 05/15/24 01:20 Temperature 38.7 C H 38.8 C H 38.8 C H Temperature Source [place] Cath ( Temp Sensing) [place] Cath ( Temp Sensing) [place] Cath ( Temp Sensing) Pulse Rate Pulse Rate [Apical] 115 H 117 H 109 H Pulse Rate from SpO2 Sensor Pulse Rhythm Respiratory Rate 30 H 32 H 32 H Respiratory Effort / Characteristics Respiratory Depth Blood Pressure Blood Pressure [Left Arm] 101/69 98/72 L 83/52 L Blood Pressure Mean Blood Pressure Mean [Left Arm] 79 80 62 Pulse Oximetry 98 94 95 Oxygen Delivery Method Non-rebreather Nasal Cannula Oxygen Flow Rate 15 6 Sepsis Recent Fever Within 48 Hours Sepsis New/Unexplained Change in Mental Status Sepsis Action Taken by Nursing 05/15/24 01:30 05/15/24 01:35 05/15/24 01:48 Temperature 38.8 C H 38.6 C H 38.7 C H Temperature Source [place] Cath ( Temp Sensing) [place] Cath ( Temp Sensing) [place] Cath ( Temp Sensing) Pulse Rate Pulse Rate [Apical] 107 H 102 H 91 H Pulse Rate from SpO2 Sensor Pulse Rhythm Respiratory Rate 32 H 30 H 23 Respiratory Effort / Characteristics Respiratory Depth Blood Pressure Blood Pressure [Left Arm] 66/47 L 66/47 L 85/56 L Blood Pressure Mean Blood Pressure Mean [Left Arm] 53 53 65 Pulse Oximetry 91 93 93 Oxygen Delivery Method Nasal Cannula Oxymask Oxymask Oxygen Flow Rate 6 10 10 Sepsis Recent Fever Within 48 Hours Sepsis New/Unexplained Change in Mental Status Sepsis Action Taken by Nursing 05/15/24 01:50 05/15/24 02:00 05/15/24 02:05 Temperature 38.6 C H 38.5 C H 38.4 C H Temperature Source [place] Cath ( Temp Sensing) [place] Cath ( Temp Sensing) [place] Cath ( Temp Sensing) Pulse Rate Pulse Rate [Apical] 90 87 84 Pulse Rate from SpO2 Sensor Pulse Rhythm Respiratory Rate 24 21 21 Respiratory Effort / Characteristics Respiratory Depth Blood Pressure Blood Pressure [Left Arm] 88/55 L 92/57 L 97/50 L Blood Pressure Mean Blood Pressure Mean [Left Arm] 66 68 65 Pulse Oximetry 95 97 97 Oxygen Delivery Method Oxymask Oxymask Oxymask Oxygen Flow Rate 10 10 10 Sepsis Recent Fever Within 48 Hours Sepsis New/Unexplained Change in Mental Status Sepsis Action Taken by Nursing 05/15/24 02:15 05/15/24 02:20 05/15/24 02:35 Temperature 38.3 C H 38.1 C H Temperature Source [place] Cath ( Temp Sensing) [place] Cath ( Temp Sensing) Pulse Rate Pulse Rate [Apical] 83 82 Pulse Rate from SpO2 Sensor Pulse Rhythm Respiratory Rate 21 21 Respiratory Effort / Characteristics Respiratory Depth Normal Blood Pressure Blood Pressure [Left Arm] 107/65 113/64 Blood Pressure Mean Blood Pressure Mean [Left Arm] 79 80 Pulse Oximetry 96 98 Oxygen Delivery Method Oxymask Oxymask Oxymask Oxygen Flow Rate 10 10 Sepsis Recent Fever Within 48 Hours Sepsis New/Unexplained Change in Mental Status Sepsis Action Taken by Nursing 05/15/24 02:46 05/15/24 02:48 Temperature 38.1 C H Temperature Source [place] Cath ( Temp Sensing) Pulse Rate 84 86 Pulse Rate [Apical] Pulse Rate from SpO2 Sensor Pulse Rhythm Respiratory Rate 16 24 Respiratory Effort / Characteristics Respiratory Depth Blood Pressure 114/67 114/67 Blood Pressure [Left Arm] Blood Pressure Mean 82 Blood Pressure Mean [Left Arm] Pulse Oximetry 97 97 Oxygen Delivery Method Oxymask Oxygen Flow Rate 10 Sepsis Recent Fever Within 48 Hours Sepsis New/Unexplained Change in Mental Status Sepsis Action Taken by Nursing Laboratory Data 05/15/24 00:40 05/15/24 00:40 Lab Results 05/15/24 05/15/24 Range/Units 00:40 00:50 WBC 25.83 H (4.8-10.8) K/ul RBC 4.91 (4.20-5.40) M/uL Hgb 13.8 (12.0-16.0) g/dl Hct 44.2 (37.0-47.0) % MCV 90.0 (80.0-100.0) fL MCH 28.1 (25.0-34.0) pg MCHC 31.2 L (32.0-36.0) g/dL RDW Std Deviation 50.5 H (36.4-46.3) fL RDW Coeff of Aparna 15.2 H (11.5-14.5) % Plt Count 324 (130-400) K/uL MPV 11.4 (9.4-12.4) fL Immature Gran % (Auto) 1.0 % Neut % (Auto) 83.8 % Lymph % (Auto) 6.9 % Carter % (Auto) 8.0 % Eos % (Auto) 0.0 % Baso % (Auto) 0.3 % Neut # (Auto) 21.67 H (1.40-6.50) K/uL Lymph # (Auto) 1.78 (1.20-3.40) K/uL Carter # (Auto) 2.06 H (0.11-0.59) K/uL Eos # (Auto) 0.00 (0.00-0.50) K/uL Baso # (Auto) 0.07 (0.00-0.20) K/uL Immature Gran # (Auto) 0.25 H (0.01-0.20) K/uL PT 66.9 H (9.0-12.0) Seconds INR 7.4 H* (0.9-1.1) APTT 49 H (21-31) Seconds PTT Ratio 1.8 VBG pH 7.33 L (7.36-7.41) VBG pCO2 52 H (38-50) mmHg VBG pO2 27 mmHg VBG HCO3 27 mmol/L VBG O2 Saturation < 60.0 % VBG Base Excess 0.6 mEq/L Sodium 148 H (136-145) mmol/L Potassium 4.6 (3.5-5.1) mmol/L Chloride 108 H (98-107) mmol/L Carbon Dioxide 27 (21-32) mmol/L Anion Gap 13 H (3-11) BUN 41 H (6-23) mg/dl Creatinine 1.67 H (0.6-1.2) mg/dl Est Cr Clr Drug Dosing Not Reportable eGFR 29.84 BUN/Creatinine Ratio 24.6 H (10-20) Glucose 149 H (70-99(Fasting)) mg/dl Lactate 7.1 H* (0.4-2.0) mmol/L Calcium 8.7 (8.6-10.3) mg/dl Magnesium 1.8 (1.7-2.4) mg/dl Total Bilirubin 0.5 (0.2-1.0) mg/dl Direct Bilirubin 0.1 (0-0.2) mg/dl AST 75 H (13-39) U/L ALT 77 H (7-52) U/L Alkaline Phosphatase 96 (34-104) U/L Troponin I High Sens 118.0 H* (0-14) pg/ml Total Protein 5.8 L (6.0-8.3) gm/dl Albumin 3.1 L (3.4-5.0) gm/dl Procalcitonin 1.53 H (0-0.5) ng/ml Random Cortisol > 60.00 mcg/dl SARS-CoV-2 (PCR) NEGATIVE (Negative) Influenza Type A (PCR) Negative (Neg) Influenza Type B (PCR) Negative (Neg) RSV (RT-PCR) Negative (Neg) Blood Type O Positive Antibody Screen NEGATIVE Crossmatch See Detail Administered Medications Norepinephrine Bitartrate (Levophed/D5w) 4 mg in 250 mls @ 15.038 mls/hr IV .[id number] JAVID; Protocol Stop: 06/14/24 01:29 Last Admin: 05/15/24 01:43 Dose: 0.05 mcg/kg/min, 15 mls/hr Documented By: ELMA Co-signed By: GARLAND Discontinued Medications Hydrocortisone Sodium Succinate (Hydrocortisone Sod Succinate 100 Mg/2 Ml Vial) 100 mg IV NOW STA Stop: 05/15/24 02:12 Last Admin: 05/15/24 02:24 Dose: 100 mg Documented By: EMB Sodium Chloride (Nss) 1,000 mls @ 999 mls/hr IV .Q1H1M JAVID Stop: 05/15/24 01:30 Last Infusion: 05/15/24 02:00 Dose: Infused Documented By: Admin: 05/15/24 01:13 Dose: 999 mls/hr Documented By: Infusion: 05/15/24 01:02 Dose: Infused Documented By: Admin: 05/15/24 00:01 Dose: 999 mls/hr Documented By: EMB Piperacillin Sod/Tazobactam Sod (Zosyn) 4.5 gm in 100 mls @ 200 mls/hr IV NOW ONE; Protocol Stop: 05/15/24 00:37 Last Infusion: 05/15/24 01:47 Dose: Infused Documented By: Admin: 05/15/24 01:02 Dose: 200 mls/hr Documented By: EMB Vancomycin HCl 1,500 mg/ (Sodium Chloride) 530 mls @ 200 mls/hr IV NOW ONE Stop: 05/15/24 02:46 Last Admin: 05/15/24 01:24 Dose: 200 mls/hr Documented By: EMB Pantoprazole Sodium 80 mg/ (Dextrose) 120 mls @ 480 mls/hr IV ONE STA Stop: 05/15/24 00:23 Last Infusion: 05/15/24 01:47 Dose: Infused Documented By: Admin: 05/15/24 01:25 Dose: 480 mls/hr Documented By: ELMA Acetaminophen (Ofirmev) 1,000 mg in 100 mls @ 400 mls/hr IV NOW STA Stop: 05/15/24 01:20 Last Infusion: 05/15/24 01:31 Dose: Infused Documented By: Admin: 05/15/24 01:11 Dose: 400 mls/hr Documented By: ELMA Phytonadione 5 mg/ Dextrose 50.5 mls @ 101 mls/hr IV ONE ONE Stop: 05/15/24 01:40 Last Infusion: 05/15/24 02:15 Dose: Infused Documented By: Admin: 05/15/24 01:47 Dose: 101 mls/hr Documented By: ELMA Sodium Chloride (Nss) 1,000 mls @ 999 mls/hr IV .Q1H1M ONE Stop: 05/15/24 02:27 Last Admin: 05/15/24 01:34 Dose: 999 mls/hr Documented By: ELMA Phytonadione 5 mg/ Dextrose 50.5 mls @ 101 mls/hr IV ONE ONE Stop: 05/15/24 02:38 Last Admin: 05/15/24 02:29 Dose: 101 mls/hr Documented By: ELMA Discharge Plan Visit Data Chief Complaint: Unresponsive Stated Complaint: UNRESPONSIVE, SEPTIC ED Provider: Ryan Caputo Discharge Problem: Septic shock, TATIANA (acute kidney injury), Acute alteration in mental status, Hypoxia, Supratherapeutic INR, Acute upper GI bleed Patient Disposition: Admitted As Inpatient Discharge Instructions Interventions: ED Discharge Assessment Last Done: 05/15/24 02:46 Prescriptions Prescriptions: No Action multivitamin Tablet 1 tab PO QAM ascorbic acid (vitamin C) [Vitamin C] 1,000 mg Tablet 1 g PO AMHS acetaminophen [Tylenol] 325 mg Tablet 650 mg PO Q6 PRN (Reason: Fever Or Pain) gabapentin 600 mg tablet 600 mg PO TID polyethylene glycol 3350 [Miralax] 17 gram Powder In Packet 17 g PO QAM citalopram 10 mg tablet 10 mg PO DAILY ondansetron HCl 4 mg tablet 4 mg PO Q8 PRN (Reason: Nausea) Rx Instructions: for 1 week start feb 20 sennosides-docusate sodium [Senokot-S] 8.6-50 mg Tablet 1 tab-cap PO AMHS cyanocobalamin (vitamin B-12) [Vitamin B-12] 1,000 mcg Tablet 1,000 mcg PO QAM potassium chloride 10 mEq tablet extended release 20 meq PO TID tramadol 50 mg tablet 100 mg PO TID methenamine hippurate 1 gram tablet 1 g PO BID bisacodyl 10 mg Suppository 10 mg [place] HS pantoprazole 40 mg tablet,delayed release (DR/EC) 40 mg PO QAM warfarin 5 mg tablet 5 mg PO QPM Saccharomyces boulardii [Florastor] 250 mg Capsule 250 mg PO BID metoprolol tartrate 25 mg tablet 25 mg PO BID cholecalciferol (vitamin D3) [Vitamin D3] 25 mcg (1,000 unit) Tablet 25 mcg PO QAM lip protective (padimate o) Stick 1 ea TOPICAL QPM glatiramer [Copaxone] 20 mg/mL Syringe 20 mg SUBCUT QAM
[2024-05-14] MEDS ORDERED: SODIUM CHLORIDE 0.9% 100 ML IV PRN (23:45)
[2024-05-15] MEDS: SODIUM CHLORIDE 0.9% 1,000 ML IV SCH (00:01)
[2024-05-15] MEDS ORDERED: VANCOMYCIN CONSULT ACTIVE PRN (00:08)
[2024-05-15] MEDS: PIPERACILLIN/TAZOBACTAM 4.5 GM/100 ML BAG IV ONE (01:02)
[2024-05-15 01:06] LABS: Base Excess VBG 0.6 mEq/L; HCO3 VBG 27 mmol/L; Oxygen Saturation VBG < 60.0 %; PCO2 VBG 52 mmHg (38-50); PO2 VBG 27 mmHg; pH VBG 7.33 (7.36-7.41)
[2024-05-15 01:07] LABS: Hematocrit (blood only) 44.2 % (37.0-47.0); Hemoglobin 13.8 g/dl (12.0-16.0); Mean Corpuscular Hemoglobin 28.1 pg (25.0-34.0); Mean Corpuscular Hgb Conc 31.2 g/dL (32.0-36.0); Mean Platelet Volume 11.4 fL (9.4-12.4); Platelet Count 324 K/uL (130-400); RDW Coefficient of Variation 15.2 % (11.5-14.5); RDW Standard Deviation 50.5 fL (36.4-46.3); Red Blood Count 4.91 M/uL (4.20-5.40); White Blood Count 25.83 K/ul (4.8-10.8)
[2024-05-15] MEDS: ACETAMINOPHEN 1,000 MG/100 ML VIAL IV STA (01:11)
[2024-05-15] MEDS: VANCOMYCIN HCL 1,500 MG in SODIUM CHLORIDE 0.9% 500 ML IV ONE (01:24)
[2024-05-15 01:25] LABS: Basophils # (auto) 0.07 K/uL (0.00-0.20); Basophils % (auto) 0.3 %; Immature Granulocytes # (auto) 0.25 K/uL (0.01-0.20); Lymphocytes # (auto) 1.78 K/uL (1.20-3.40); Lymphocytes % (auto) 6.9 %; Monocytes # (auto) 2.06 K/uL (0.11-0.59); Neutrophils # (auto) 21.67 K/uL (1.40-6.50); Neutrophils % (auto) 83.8 %
[2024-05-15] MEDS: PANTOprazole 80 MG in DEXTROSE 5% 100 ML IV STA (01:25)
[2024-05-15 01:27] LABS: Alanine Aminotransferase 77 U/L (7-52); Albumin Level 3.1 gm/dl (3.4-5.0); Alkaline Phosphatase 96 U/L (34-104); Anion Gap 13 (3-11); Aspartate Aminotransferase 75 U/L (13-39); BUN Creatinine Ratio 24.6 (10-20); Bilirubin Direct 0.1 mg/dl (0-0.2); Bilirubin,Total 0.5 mg/dl (0.2-1.0); Blood Urea Nitrogen 41 mg/dl (6-23); Calcium 8.7 mg/dl (8.6-10.3); Carbon Dioxide 27 mmol/L (21-32); Chloride 108 mmol/L (98-107); Glucose 149 mg/dl (70-99(Fasting)); Magnesium 1.8 mg/dl (1.7-2.4); Potassium 4.6 mmol/L (3.5-5.1); Sodium 148 mmol/L (136-145); Total Protein 5.8 gm/dl (6.0-8.3)
[2024-05-15] MEDS: SODIUM CHLORIDE 0.9% 1,000 ML IV ONE (01:34)
[2024-05-15 01:42] LABS: Influenza A virus by PCR Negative (Neg); Influenza B virus by PCR Negative (Neg); RSV by PCR Negative (Neg); SARS CoV2 RNA(COVID-19) Ceph NEGATIVE (Negative)
[2024-05-15] MEDS: NOREPINEPHRINE/D5W 4 MG/250 ML PLCT IV SCH (01:43)
[2024-05-15 01:44] LABS: Partial Thromboplastin Ratio 1.8; Partial Thromboplastin Time 49 Seconds (21-31); Prothrombin Time 66.9 Seconds (9.0-12.0)
[2024-05-15] MEDS: PHYTONADIONE 5 MG in DEXTROSE 5% 50 ML IV ONE ×2 (01:47→02:29)
[2024-05-15 01:55] LABS: INR 7.4 (0.9-1.1)
--- NOTE | 2024-05-15 02:18 | History & Physical Report ---
Date of Service May 15, 2024 Assessment & Plan (1) Admitted to intensive care unit: (2) Septic shock: (3) Acute respiratory failure with hypoxia: (4) Aspiration into lower respiratory tract: (5) UTI due to extended-spectrum beta lactamase (ESBL) producing Escherichia coli: (6) Pseudomonas infection: (7) Supratherapeutic INR: (8) Altered mental status: (9) Hypernatremia: (10) Recurrent deep vein thrombosis (DVT): (11) Acute kidney injury: Plan Admit to intensive care unit/septic shock/acute respiratory failure with hypoxia/recurrent urinary tract infection with ESBL E. coli/Pseudomonas and MSSA cellulitis- Status post 2 L normal saline bolus in ED Empiric vancomycin IV and Zosyn IV Continue Levophed and titrate per protocol Admitting to the ICU under olericulturist Dr. Light Serial CBC with differential, chemistry profile, magnesium, troponin and ABG Acute respiratory failure with hypoxia/presumptive aspiration pneumonia- Patient is a DO NOT INTUBATE Antibiotics as above Duonebs every 4 hours while awake and every 2 hours when necessary. Oxy mask 10 L/min, titrate to keep pulse ox around 94% History of urinary tract infection with ESBL E. coli- Follow urine culture and sensitivity Empiric antibiotics as above Continue IV fluids as noted Pseudomonas cellulitis history- Empiric antibiotics as noted to cover this potential as well Supratherapeutic INR- INR 7.4 on chronic warfarin 5 mg daily, which will be held Received initial vitamin K 5 mg IV. Given additional 5 mg IV for total of 10 mg IV, recheck laboratories in the a.m. CODE STATUS: DNR/DNI History of Present Illness Chief Complaint: The patient was brought to the emergency department significantly altered mental state, confused, obtunded and unresponsive. Primary Care Provider: [facility] The patient is a 83-year-old female with a past medical history including recurrent DVT, ESBL UTI, Pseudomonas infection, generalized weakness, left lower extremity cellulitis, meningitis, upper GI bleed, paraplegia, sepsis, B12 deficiency, abscess/cellulitis of chest wall, SVT, multiple sclerosis, trigeminal neuralgia of left side of face and left-sided weakness. She is brought to the emergency department altered, obtunded, hypotensive, tachycardic, elevated temperature and hypoxic. The patient's blood pressure decreased to a low of 73/51 despite aggressive fluid resuscitation, and was started on Levophed, vancomycin IV, Zosyn IV and 2 L fluid bolus of normal saline. The patient continued to be unresponsive and will be admitted to the ICU for further management. Her son confirmed via telephone, and family later confirmed and person, that the patient is to be DNR/DNI Allergies Allergy/AdvReac Type Severity Reaction Status Date / Time levofloxacin [From Levaquin] Allergy Unknown Unknown Verified 02/23/24 02:49 promethazine Allergy Unknown Verified 02/23/24 02:49 Home Medications Medication Instructions Recorded Confirmed Type Saccharomyces boulardii 250 mg 250 mg PO BID 02/23/24 05/15/24 History capsule (Florastor) acetaminophen 325 mg tablet 650 mg PO Q6 PRN Fever Or Pain 02/23/24 05/15/24 History (Tylenol) ascorbic acid (vitamin C) 1,000 mg 1 g PO AMHS 02/23/24 05/15/24 History tablet (Vitamin C) bisacodyl 10 mg rectal suppository 10 mg MT HS 02/23/24 05/15/24 History cholecalciferol (vitamin D3) 25 25 mcg PO QAM 02/23/24 05/15/24 History mcg (1,000 unit) tablet (Vitamin D3) citalopram 10 mg tablet 10 mg PO DAILY 02/23/24 05/15/24 History cyanocobalamin (vitamin B-12) 1,000 mcg PO QAM 02/23/24 05/15/24 History 1,000 mcg tablet (Vitamin B-12) gabapentin 600 mg tablet 600 mg PO TID 02/23/24 05/15/24 History glatiramer 20 mg/mL subcutaneous 20 mg subcut QAM 02/23/24 05/15/24 History syringe (Copaxone) lip protective (padimate o) 1 ea topical QPM 02/23/24 05/15/24 History methenamine hippurate 1 gram tablet 1 g PO BID 02/23/24 05/15/24 History metoprolol tartrate 25 mg tablet 25 mg PO BID 02/23/24 05/15/24 History multivitamin 1 tab PO QAM 02/23/24 05/15/24 History ondansetron HCl 4 mg tablet 4 mg PO Q8 PRN Nausea 02/23/24 05/15/24 History pantoprazole 40 mg tablet,delayed 40 mg PO QAM 02/23/24 05/15/24 History release polyethylene glycol 3350 17 gram 17 g PO QAM 02/23/24 05/15/24 History oral powder packet (Miralax) potassium chloride 10 mEq 20 meq PO TID 02/23/24 05/15/24 History tablet,extended release sennosides 8.6 mg-docusate sodium 1 tab-cap PO AMHS 02/23/24 05/15/24 History 50 mg tablet (Senokot-S) tramadol 50 mg tablet 100 mg PO TID 02/23/24 05/15/24 History warfarin 5 mg tablet 5 mg PO QPM 02/23/24 05/15/24 History Past Med/Surg History Problem List (Updated 05/15/24 @ 04:38 by Stevo Macario MD) Admitted to intensive care unit Acute kidney injury Supratherapeutic INR Septic shock Shock, unspecified Acute respiratory failure with hypoxia Aspiration into lower respiratory tract Vomiting (Acute) Fever (Acute) Hypokalemia (Acute) Weakness (Acute) Altered mental status (Acute) Dehydration Hypernatremia Hypomagnesemia Recurrent deep vein thrombosis (DVT) UTI due to extended-spectrum beta lactamase (ESBL) producing Escherichia coli (Acute) Pseudomonas infection Surgical wound, non healing (Acute) Generalized weakness (Acute) Head injury (Acute) Right hip pain (Acute) Scalp hematoma (Acute) Skin breakdown (Acute) Weakness (Acute) Cellulitis of left leg (Acute) Febrile illness (Acute) Headache (Acute) Meningitis (Acute) Weakness (Acute) Upper GI bleed (Acute) Chest pain (Acute) Encounter for pre-operative examination Coffee ground emesis Paraplegia DVT prophylaxis Sepsis (Acute) Vitamin B12 deficiency Hypotension UTI (urinary tract infection) (Acute) Complicated urinary tract infection (Acute) Cellulitis Abscess or cellulitis of chest wall Urinary retention Fever Abnormal urinalysis SVT (supraventricular tachycardia) Paraplegia Lymphedema of left leg (Chronic) History of multiple sclerosis (Chronic) Left-sided weakness (Acute) Medical History Hypokalemia Depression Neurogenic bladder disorder Esophageal reflux History of depression Hx of decubitus ulcer History of closed head injury Hypoglycemia Necrotizing fasciitis Leukocytosis Endotracheally intubated Admitted to intensive care unit Encounter for pre-operative examination Abscess or cellulitis of chest wall Sepsis Catheter-associated urinary tract infection Sepsis Atrial flutter with rapid ventricular response Altered mental status DVT (deep venous thrombosis) [place] grade C esophagitis Esophagitis Thank you for allowing us to participate in the care of this patient. If you should have any further questions or concerns, don't hesitate to contact us at extension [phone] or [phone]. Esophagitis Urinary retention Constipation Fever Abnormal urinalysis SVT (supraventricular tachycardia) Paraplegia Lymphedema of left leg History of multiple sclerosis Multiple sclerosis Left-sided weakness Trigeminal neuralgia of left side of face Surgical History History of craniotomy History of incision and drainage (01/19/22) Left Breast and Chest Wall Incision Drainage and Debridement including soft tissue including muscle greater than 50cm squared(Left) - Hair Mcknight DO, FACS Family History Other Family history non-contributory Social History Smoking Status: Unknown if ever smoked Hx Alcohol Use: No Hx Substance Use: No Preferred Language: Croatian Communication Ability: Effective Communication Ability Comment: patient was able to answer yes or no questions Barrel Drainer Required: No Beliefs That Will Affect Care: None marital status: Current Living Situation: Care Home Current Living Situation Comment: Home Health Feels Safe at Home: Yes Assistive Devices: Wheelchair Review of Systems Review of Systems: Patient is unable to respond medical state, and cannot contribute HPI or review of systems. Physical Exam Physical Exam: The patient is unresponsive, normocephalic and atraumatic, lying in bed and in moderately severe distress. HEENT--PERRL, EOMI, mucous membranes and oropharynx dry. Neck--supple. No JVD. No bruits. Thyroid normal, trachea midline, no adenopathy. Heart--normal S1 and S2. No murmurs, rubs or gallops. Lungs--coarse breath sounds bilaterally, moderate respiratory distress, with accessory muscle use. Abdomen--normal bowel sounds and soft. Nontender. Nondistended Extremities--No edema. Dermatologic--skin is dry Neurologic--cranial nerves II through XII grossly intact Rheumatologic--limited exam Psychiatric--unresponsive. Results & Data Results & Data Vital Signs (Past 12 Hours) Vital Signs Temp Pulse Pulse Resp BP BP Pulse Ox 05/15/24 02:15 38.3 C H 83 21 107/65 96 05/15/24 02:05 38.4 C H 84 21 97/50 L 97 05/15/24 02:00 38.5 C H 87 21 92/57 L 97 05/15/24 01:50 38.6 C H 90 24 88/55 L 95 05/15/24 01:48 38.7 C H 91 H 23 85/56 L 93 05/15/24 01:35 38.6 C H 102 H 30 H 66/47 L 93 05/15/24 01:30 38.8 C H 107 H 32 H 66/47 L 91 05/15/24 01:20 38.8 C H 109 H 32 H 83/52 L 95 05/15/24 01:05 38.8 C H 117 H 32 H 98/72 L 94 05/15/24 00:50 38.7 C H 115 H 30 H 101/69 98 05/15/24 00:45 38.7 C H 109 H 28 H 107/61 97 05/15/24 00:41 38.7 C H 110 H 29 H 100/66 96 05/15/24 00:35 110 H 26 H 94 05/15/24 00:35 98/61 L 05/15/24 00:35 98/61 L 05/15/24 00:30 96/62 L 05/15/24 00:30 96/62 L 05/15/24 00:30 96/62 L 05/15/24 00:25 89/66 L 05/15/24 00:20 116 H 33 H 95 05/15/24 00:20 98/64 L 05/15/24 00:17 117 H 31 H 98/64 L 96 05/15/24 00:15 87/58 L 05/15/24 00:15 87/58 L 05/15/24 00:15 87/58 L 05/15/24 00:10 78/57 L 05/15/24 00:10 78/57 L 05/15/24 00:04 05/15/24 00:04 125 H 35 H 87/55 L 96 05/15/24 00:00 127 H 23 89/55 L 93 05/14/24 23:51 82/52 L 05/14/24 23:48 124 H 41 H 82/52 L 91 05/14/24 23:47 125 H 33 H 77/56 L 91 05/14/24 23:45 77/56 L 05/14/24 23:43 39.4 C H 125 H 31 H 77/56 L 92 05/14/24 23:40 85/58 L 05/14/24 23:36 130 H 43 H 90/65 L 88 L 05/14/24 23:30 138 H 48 H 77/58 L 97 05/14/24 23:29 140 H 05/14/24 23:22 137 H 44 H 73/51 L 87 L O2 Del Method O2 Flow Rate 05/15/24 02:15 Oxymask 10 05/15/24 02:05 Oxymask 10 05/15/24 02:00 Oxymask 10 05/15/24 01:50 Oxymask 10 05/15/24 01:48 Oxymask 10 05/15/24 01:35 Oxymask 10 05/15/24 01:30 Nasal Cannula 6 05/15/24 01:20 05/15/24 01:05 Nasal Cannula 6 05/15/24 00:50 Non-rebreather 15 05/15/24 00:45 15 05/15/24 00:41 Non-rebreather 15 05/15/24 00:35 05/15/24 00:35 05/15/24 00:35 05/15/24 00:30 05/15/24 00:30 05/15/24 00:30 05/15/24 00:25 05/15/24 00:20 05/15/24 00:20 05/15/24 00:17 05/15/24 00:15 05/15/24 00:15 05/15/24 00:15 05/15/24 00:10 05/15/24 00:10 05/15/24 00:04 Oxymask 05/15/24 00:04 Oxymask 15 05/15/24 00:00 05/14/24 23:51 05/14/24 23:48 05/14/24 23:47 05/14/24 23:45 05/14/24 23:43 Oxymask 15 05/14/24 23:40 05/14/24 23:36 05/14/24 23:30 05/14/24 23:29 05/14/24 23:22 Room Air Laboratory Results Laboratory Results WBC 25.39 K/ul (4.8-10.8) H 05/15/24 04:09 RBC 4.94 M/uL (4.20-5.40) 05/15/24 04:09 Hgb 13.9 g/dl (12.0-16.0) 05/15/24 04:09 Hct 43.6 % (37.0-47.0) 05/15/24 04:09 MCV 88.3 fL (80.0-100.0) 05/15/24 04:09 MCH 28.1 pg (25.0-34.0) 05/15/24 04:09 MCHC 31.9 g/dL (32.0-36.0) L 05/15/24 04:09 RDW Std Deviation 49.2 fL (36.4-46.3) H 05/15/24 04:09 RDW Coeff of Aparna 15.4 % (11.5-14.5) H 05/15/24 04:09 Plt Count 272 K/uL (130-400) 05/15/24 04:09 MPV 11.6 fL (9.4-12.4) 05/15/24 04:09 Immature Gran % (Auto) 1.0 % 05/15/24 00:40 Neut % (Auto) 83.8 % 05/15/24 00:40 Lymph % (Auto) 6.9 % 05/15/24 00:40 Andrews % (Auto) 8.0 % 05/15/24 00:40 Eos % (Auto) 0.0 % 05/15/24 00:40 Baso % (Auto) 0.3 % 05/15/24 00:40 Neut # (Auto) 21.67 K/uL (1.40-6.50) H 05/15/24 00:40 Lymph # (Auto) 1.78 K/uL (1.20-3.40) 05/15/24 00:40 Andrews # (Auto) 2.06 K/uL (0.11-0.59) H 05/15/24 00:40 Eos # (Auto) 0.00 K/uL (0.00-0.50) 05/15/24 00:40 Baso # (Auto) 0.07 K/uL (0.00-0.20) 05/15/24 00:40 Immature Gran # (Auto) 0.25 K/uL (0.01-0.20) H 05/15/24 00:40 PT 66.9 Seconds (9.0-12.0) H 05/15/24 00:40 INR 7.4 (0.9-1.1) H* 05/15/24 00:40 APTT 49 Seconds (21-31) H 05/15/24 00:40 PTT Ratio 1.8 05/15/24 00:40 VBG pH 7.33 (7.36-7.41) L 05/15/24 00:40 VBG pCO2 52 mmHg (38-50) H 05/15/24 00:40 VBG pO2 27 mmHg 05/15/24 00:40 VBG HCO3 27 mmol/L 05/15/24 00:40 VBG O2 Saturation < 60.0 % 05/15/24 00:40 VBG Base Excess 0.6 mEq/L 05/15/24 00:40 Sodium 148 mmol/L (136-145) H 05/15/24 00:40 Potassium 4.6 mmol/L (3.5-5.1) 05/15/24 00:40 Chloride 108 mmol/L (98-107) H 05/15/24 00:40 Carbon Dioxide 27 mmol/L (21-32) 05/15/24 00:40 Anion Gap 13 (3-11) H 05/15/24 00:40 BUN 41 mg/dl (6-23) H 05/15/24 00:40 Creatinine 1.67 mg/dl (0.6-1.2) H 05/15/24 00:40 Est Cr Clr Drug Dosing Not Reportable 05/15/24 00:40 eGFR 29.84 05/15/24 00:40 BUN/Creatinine Ratio 24.6 (10-20) H 05/15/24 00:40 Glucose 149 mg/dl (70-99(Fasting)) H 05/15/24 00:40 Lactate 3.3 mmol/L (0.4-2.0) H* 05/15/24 03:16 Calcium 8.7 mg/dl (8.6-10.3) 05/15/24 00:40 Ionized Calcium 1.13 mmol/L (1.12-1.32) 05/15/24 04:09 Magnesium 1.8 mg/dl (1.7-2.4) 05/15/24 00:40 Total Bilirubin 0.5 mg/dl (0.2-1.0) 05/15/24 00:40 Direct Bilirubin 0.1 mg/dl (0-0.2) 05/15/24 00:40 AST 75 U/L (13-39) H 05/15/24 00:40 ALT 77 U/L (7-52) H 05/15/24 00:40 Alkaline Phosphatase 96 U/L (34-104) 05/15/24 00:40 Ammonia 74.0 umol/L (18-72) H 05/15/24 03:16 Troponin I High Sens 118.0 pg/ml (0-14) H* 05/15/24 00:40 Total Protein 5.8 gm/dl (6.0-8.3) L 05/15/24 00:40 Albumin 3.1 gm/dl (3.4-5.0) L 05/15/24 00:40 Procalcitonin 1.53 ng/ml (0-0.5) H 05/15/24 00:40 Random Cortisol > 60.00 mcg/dl 05/15/24 00:40 Urine Color See Comment 05/15/24 02:26 Urine Appearance Cloudy (Clear) A 05/15/24 02:26 Urine pH Not Reportable 05/15/24 02:26 Ur Specific Lyk[place] 1.030 (1.000-1.030) 05/15/24 02:26 Urine Protein Not Reportable 05/15/24 02:26 Urine Glucose (UA) Not Reportable 05/15/24 02:26 Urine Ketones Not Reportable 05/15/24 02:26 Urine Blood Not Reportable 05/15/24 02:26 Urine Nitrite Not Reportable 05/15/24 02:26 Urine Bilirubin Not Reportable 05/15/24 02:26 Urine Urobilinogen Not Reportable 05/15/24 02:26 Ur Leukocyte Esterase Not Reportable 05/15/24 02:26 Urine RBC >20 /hpf (0-2) H 05/15/24 02:26 Urine WBC 6-10 /hpf (0-5) H 05/15/24 02:26 Ur Epithelial Cells 0-2 /hpf (0-2) 05/15/24 02:26 Urine Bacteria None Seen (None Seen) 05/15/24 02:26 SARS-CoV-2 (PCR) NEGATIVE (Negative) 05/15/24 00:50 Influenza Type A (PCR) Negative (Neg) 05/15/24 00:50 Influenza Type B (PCR) Negative (Neg) 05/15/24 00:50 RSV (RT-PCR) Negative (Neg) 05/15/24 00:50 Blood Type O Positive 05/15/24 00:40 Antibody Screen NEGATIVE 05/15/24 00:40 Crossmatch See Detail 05/15/24 00:40 Code Status & VTE Plan Code Status DNR/DNI VTE Prophylaxis Plan VTE Prophylaxis will be ordered: Yes Critical Care Time 45 PG Care Time/CCT Total # of Minutes Spent Total Time Spent with Patient: Total time spent is greater than 50% in coordination of care (as documented) at patient's floor/unit and/or counseling patient: Coding Level of Care Code 10155 INT INP/OBS CARE 3/75MIN Diagnoses Admitted to intensive care unit Z78.9 Septic shock A41.9; R65.21 Acute respiratory failure with hypoxia J96.01 Aspiration into lower respiratory tract T17.800A UTI due to extended-spectrum beta lactamase (ESBL) producing Escherichia coli N39.0; B96.29; Z16.12 Pseudomonas infection A49.8 Supratherapeutic INR R79.1 Altered mental status R41.82 Altered mental status type: unspecified Hypernatremia E87.0 Recurrent deep vein thrombosis (DVT) I82.409 Acute kidney injury N17.9 (8) Altered mental status Altered mental status type: unspecified Qualified Code(s): R41.82 - Altered mental status, unspecified
[2024-05-15] MEDS: HYDROCORTISONE SOD SUCCINATE 100 MG/2 ML VIAL IV STA (02:24)
--- NOTE | 2024-05-15 02:38 | Critical Care Consultation ---
Date of Consultation May 15, 2024 Assessment & Plan (1) Shock, unspecified: (2) Septic shock: (3) Supratherapeutic INR: (4) Coffee ground emesis: (5) Acute respiratory failure with hypoxia: (6) UTI due to extended-spectrum beta lactamase (ESBL) producing Escherichia coli: (7) History of multiple sclerosis: Plan Reason Critically Ill: 83 YOF with refractory hypotension following crystalloid and PRBC infusion now requiring vasopressor support. She is with elevated WBC, organ dysfunction, and elevated lactate with likely source of urine, however is with hematemesis with supratherapeutic INR of 7.1 Neuro - Metabolic Encephalopathy, Hx of Dementia, MS CAM ICU: [facility] - Encephalopathy likely related to septic shock as well as TATIANA - Continue supportive care- maintain MAPS >65 - Baseline function is poor related to her MS and dementia Cardiac - Shock, septic shock, elevate HScTNI - Shock multifactorial with sepsis likley the initiating factor, however can't exclude some component of hypovolemia - Sepsis with organ dysfunction - brain, lung, heart, liver, kidneys - She was given approx 3L of volume between crystalloid and blood product - Vasopressor support to maintain MAPS >65 - if fails to respond to therapy discuss transition to comfort care with family - HsCTNI likely elevated from type II mismatch- however with her elevated INR at this time bleeding risk would be higher than benefit from heparin at this time - ECHO in am eval for RWMA - If bleeding is evident and persists- would consider PCC Respiratory - Hypoxic respiratory failure - Likley secondary to some aspiration which is acute on chronic - She is able to produce effective cough however is not mentally able to provide sputum sample - Continue oxygen would avoid BiPAP with her mentation and inability to remove her own mask if she were to aspirate - DNI in event of respiratory event GI - Hematemesis, elevated LFTS - Possibly UGI bleed with supratherapeutic INR - BUN mildly elevated - Continue BID PPI with Protonix IV - NPO RENAL/LYTES - ARF non-oliguric stage of injury, - Likely pre renal from hypotension - has had minimal urine out at this point- so possible to progress to ATN - MAPS >65 - daily BMP - renal dose medications - avoid nephrotoxins - Gamboa in place, hx of overactive bladder - [place] in place continue while on vasopressors and accurate NEGRITA ENDO - Elevated BG - ICU hyperglycemic protocol HEME - Supratherapeutic INR, Possible Acute blood loss, Hx of DVT on chronic anticoagulation - Vitamin K 10mg given - Will give 2FFP as well - Hold Coumadin- hold chemoprophylaxis as well until INR lowered and acute blood loss ruled out ID - Septic Shock likely UTI - Previous urine culture from 05/06/24 with ESBL E. COLI - Will change Zosyn to Meropenem- pending MRSA swab can likely change Vanco to Dapto - Await Blood cultures - Follow Urine culture as she has just been treated with Macrobid LINES/IV ACCESS - Continue use of these lines DVT PROPHYLAXIS - SCDS DISPO: ICU while on vasopressor therapy, hopeful patient will respond to vasopressors, antibiotics, and reversing her INR. She is with multiple organ dysfunction at this time and family knows she would not want heroic measures. It is fair at this time to provide full supportive care for her shock and see how she responds, and if worsens will discuss options with family on comfort care or increase support. I have personally spent 50 minutes of critical care time in the direct management of this patient. This is a life/limb threatening event. This includes time spent evaluating patient, direct bedside care, chart review, placing orders, interpretation of diagnostic studies, discussion with consultants, patient, and family members, as well as other required patient management activities. This time is exclusive of all separately billable procedures, and teaching time and separate from and in addition to any other critical care service time. Thank you for allowing us to participate in the care of this patient. Please refer to my attending physician's documentation for any further recommendations. History of Present Illness Reason for Consultation: shock requiring vasopressors Requesting Physician: Stevo Macario MD Attending Physician: Stevo Macario MD+ History of Present Illness 83 YOF with medical history of : MS, overactive bladder, frequent UTIs, Dementia, DVT ( on warfarin), GI Bleed, SVT. Patient is normally resident at [facility]. She was brought in from there for increased somnolence in setting of being treated for UTI with macrobid. She was noted to be hypotensive in the ER and remained such following 2 L crystalloid and 1uPRBC, for which she was initiated on Levophed. Patient was also noted to have hematemesis and dark diarrheal bowel movement while in EMD, and this coupled with her hypotension was given emergency PRBC. Labs obtained revealed leukocytosis, TATIANA, Elevated LFTs with elevated INR, HScTNI, and PCT. She was initiated on broad spectrum abx. She will be admitted to ICU to continue supportive care to see if she responds to abx, fluids, and vasopressors , family to discuss options if escalation of care is required, as they are unsure of what she would want. She is with baseline dementia, flaccid extremities with her MS and unable to get out of bed, last at her baseline Saturday when family visited, they saw her Saturday and she was more lethargic and not communicative but groaning. CODE: DNR/DNI Allergies Allergy/AdvReac Type Severity Reaction Status Date / Time levofloxacin [From Levaquin] Allergy Unknown Unknown Verified 02/23/24 02:49 promethazine Allergy Unknown Verified 02/23/24 02:49 Home Medications Medication Instructions Recorded Confirmed Type Saccharomyces boulardii 250 mg 250 mg PO BID 02/23/24 05/15/24 History capsule (Florastor) acetaminophen 325 mg tablet 650 mg PO Q6 PRN Fever Or Pain 02/23/24 05/15/24 History (Tylenol) ascorbic acid (vitamin C) 1,000 mg 1 g PO AMHS 02/23/24 05/15/24 History tablet (Vitamin C) bisacodyl 10 mg rectal suppository 10 mg IN HS 02/23/24 05/15/24 History cholecalciferol (vitamin D3) 25 25 mcg PO QAM 02/23/24 05/15/24 History mcg (1,000 unit) tablet (Vitamin D3) citalopram 10 mg tablet 10 mg PO DAILY 02/23/24 05/15/24 History cyanocobalamin (vitamin B-12) 1,000 mcg PO QAM 02/23/24 05/15/24 History 1,000 mcg tablet (Vitamin B-12) gabapentin 600 mg tablet 600 mg PO TID 02/23/24 05/15/24 History glatiramer 20 mg/mL subcutaneous 20 mg subcut QAM 02/23/24 05/15/24 History syringe (Copaxone) lip protective (padimate o) 1 ea topical QPM 02/23/24 05/15/24 History methenamine hippurate 1 gram tablet 1 g PO BID 02/23/24 05/15/24 History metoprolol tartrate 25 mg tablet 25 mg PO BID 02/23/24 05/15/24 History multivitamin 1 tab PO QAM 02/23/24 05/15/24 History ondansetron HCl 4 mg tablet 4 mg PO Q8 PRN Nausea 02/23/24 05/15/24 History pantoprazole 40 mg tablet,delayed 40 mg PO QAM 02/23/24 05/15/24 History release polyethylene glycol 3350 17 gram 17 g PO QAM 02/23/24 05/15/24 History oral powder packet (Miralax) potassium chloride 10 mEq 20 meq PO TID 02/23/24 05/15/24 History tablet,extended release sennosides 8.6 mg-docusate sodium 1 tab-cap PO AMHS 02/23/24 05/15/24 History 50 mg tablet (Senokot-S) tramadol 50 mg tablet 100 mg PO TID 02/23/24 05/15/24 History warfarin 5 mg tablet 5 mg PO QPM 02/23/24 05/15/24 History Patient History Medical History Hypokalemia Depression Neurogenic bladder disorder Esophageal reflux History of depression Hx of decubitus ulcer History of closed head injury Hypoglycemia Necrotizing fasciitis Leukocytosis Endotracheally intubated Admitted to intensive care unit Encounter for pre-operative examination Abscess or cellulitis of chest wall Sepsis Catheter-associated urinary tract infection Sepsis Atrial flutter with rapid ventricular response Altered mental status DVT (deep venous thrombosis) [place] grade C esophagitis Esophagitis Thank you for allowing us to participate in the care of this patient. If you should have any further questions or concerns, don't hesitate to contact us at extension [phone] or [phone]. Esophagitis Urinary retention Constipation Fever Abnormal urinalysis SVT (supraventricular tachycardia) Paraplegia Lymphedema of left leg History of multiple sclerosis Multiple sclerosis Left-sided weakness Trigeminal neuralgia of left side of face Surgical History History of craniotomy History of incision and drainage (01/19/22) Left Breast and Chest Wall Incision Drainage and Debridement including soft tissue including muscle greater than 50cm squared(Left) - Hair Mcknight DO, FACS Family History Other Family history non-contributory Social History Smoking Status: Unknown if ever smoked Hx Alcohol Use: No Hx Substance Use: No Preferred Language: Bulgarian Communication Ability: Unable Communication Ability Comment: patient was able to answer yes or no questions [employer] Required: No Beliefs That Will Affect Care: None marital status: Current Living Situation: Residential Current Living Situation Comment: Home Health Feels Safe at Home: Yes Assistive Devices: Wheelchair Review of Systems Review of Systems: unable to obtain secondary to mentation Physical Exam Physical Exam: PHYSICAL EXAM: General: unresponsive, ill appearing ENT: dried blood in mouth and around mouth, dry mucous membranes Neuro: AAO x 0, groans, squeezes eyes shut against manual opening, extremities flaccid Chest: equal rise and fall of the chest, scattered rhonchi Cardiac: Regular rate and rhythm, telemetry reviewed- NSR no ectopy, skin cool and dry, cap refill >3 seconds, peripheral pulses +2, S1S2 GI: NABS x 4 quadrants, softly distended, : [place] to gravity Skin: no rash or erythema Results & Data Results & Data Vital Signs (Past 12 Hours) Vital Signs Temp Pulse Pulse Resp BP BP Pulse Ox 05/15/24 02:15 38.3 C H 83 21 107/65 96 05/15/24 02:05 38.4 C H 84 21 97/50 L 97 05/15/24 02:00 38.5 C H 87 21 92/57 L 97 05/15/24 01:50 38.6 C H 90 24 88/55 L 95 05/15/24 01:48 38.7 C H 91 H 23 85/56 L 93 05/15/24 01:35 38.6 C H 102 H 30 H 66/47 L 93 05/15/24 01:30 38.8 C H 107 H 32 H 66/47 L 91 05/15/24 01:20 38.8 C H 109 H 32 H 83/52 L 95 05/15/24 01:05 38.8 C H 117 H 32 H 98/72 L 94 05/15/24 00:50 38.7 C H 115 H 30 H 101/69 98 05/15/24 00:45 38.7 C H 109 H 28 H 107/61 97 05/15/24 00:41 38.7 C H 110 H 29 H 100/66 96 05/15/24 00:35 110 H 26 H 94 05/15/24 00:35 98/61 L 05/15/24 00:35 98/61 L 05/15/24 00:30 96/62 L 05/15/24 00:30 96/62 L 05/15/24 00:30 96/62 L 05/15/24 00:25 89/66 L 05/15/24 00:20 116 H 33 H 95 05/15/24 00:20 98/64 L 05/15/24 00:17 117 H 31 H 98/64 L 96 05/15/24 00:15 87/58 L 05/15/24 00:15 87/58 L 05/15/24 00:15 87/58 L 05/15/24 00:10 78/57 L 05/15/24 00:10 78/57 L 05/15/24 00:04 05/15/24 00:04 125 H 35 H 87/55 L 96 05/15/24 00:00 127 H 23 89/55 L 93 05/14/24 23:51 82/52 L 05/14/24 23:48 124 H 41 H 82/52 L 91 05/14/24 23:47 125 H 33 H 77/56 L 91 05/14/24 23:45 77/56 L 05/14/24 23:43 39.4 C H 125 H 31 H 77/56 L 92 05/14/24 23:40 85/58 L 05/14/24 23:36 130 H 43 H 90/65 L 88 L 05/14/24 23:30 138 H 48 H 77/58 L 97 05/14/24 23:29 140 H 05/14/24 23:22 137 H 44 H 73/51 L 87 L O2 Del Method O2 Flow Rate 05/15/24 02:15 Oxymask 10 05/15/24 02:05 Oxymask 10 05/15/24 02:00 Oxymask 10 05/15/24 01:50 Oxymask 10 05/15/24 01:48 Oxymask 10 05/15/24 01:35 Oxymask 10 05/15/24 01:30 Nasal Cannula 6 05/15/24 01:20 05/15/24 01:05 Nasal Cannula 6 05/15/24 00:50 Non-rebreather 15 05/15/24 00:45 15 05/15/24 00:41 Non-rebreather 15 05/15/24 00:35 05/15/24 00:35 05/15/24 00:35 05/15/24 00:30 05/15/24 00:30 05/15/24 00:30 05/15/24 00:25 05/15/24 00:20 05/15/24 00:20 05/15/24 00:17 05/15/24 00:15 05/15/24 00:15 05/15/24 00:15 05/15/24 00:10 05/15/24 00:10 05/15/24 00:04 Oxymask 05/15/24 00:04 Oxymask 15 05/15/24 00:00 05/14/24 23:51 05/14/24 23:48 05/14/24 23:47 05/14/24 23:45 05/14/24 23:43 Oxymask 15 05/14/24 23:40 05/14/24 23:36 05/14/24 23:30 05/14/24 23:29 05/14/24 23:22 Room Air Laboratory Results Abnormal lab results 05/15/24 Range/Units 00:40 WBC 25.83 H (4.8-10.8) K/ul MCHC 31.2 L (32.0-36.0) g/dL RDW Std Deviation 50.5 H (36.4-46.3) fL RDW Coeff of Aparna 15.2 H (11.5-14.5) % Neut # (Auto) 21.67 H (1.40-6.50) K/uL [place] # (Auto) 2.06 H (0.11-0.59) K/uL Immature Gran # (Auto) 0.25 H (0.01-0.20) K/uL PT 66.9 H (9.0-12.0) Seconds INR 7.4 H* (0.9-1.1) APTT 49 H (21-31) Seconds VBG pH 7.33 L (7.36-7.41) VBG pCO2 52 H (38-50) mmHg Sodium 148 H (136-145) mmol/L Chloride 108 H (98-107) mmol/L Anion Gap 13 H (3-11) BUN 41 H (6-23) mg/dl Creatinine 1.67 H (0.6-1.2) mg/dl BUN/Creatinine Ratio 24.6 H (10-20) Glucose 149 H (70-99(Fasting)) mg/dl Lactate 7.1 H* (0.4-2.0) mmol/L AST 75 H (13-39) U/L ALT 77 H (7-52) U/L Troponin I High Sens 118.0 H* (0-14) pg/ml Total Protein 5.8 L (6.0-8.3) gm/dl Albumin 3.1 L (3.4-5.0) gm/dl Procalcitonin 1.53 H (0-0.5) ng/ml Crossmatch See Detail Medications Administered Norepinephrine Bitartrate (Levophed/D5w) 4 mg in 250 mls @ 15.038 mls/hr IV .[id number] [facility] / [facility]; Protocol Stop: 06/14/24 01:29 Last Admin: 05/15/24 01:43 Dose: 0.05 mcg/kg/min, 15 mls/hr Documented By: ELMA Co-signed By: GARLAND Discontinued Medications Hydrocortisone Sodium Succinate (Hydrocortisone Sod Succinate 100 Mg/2 Ml Vial) 100 mg IV NOW STA Stop: 05/15/24 02:12 Last Admin: 05/15/24 02:24 Dose: 100 mg Documented By: ELMA Sodium Chloride (Nss) 1,000 mls @ 999 mls/hr IV .Q1H1M JAVID Stop: 05/15/24 01:30 Last Infusion: 05/15/24 02:00 Dose: Infused Documented By: Admin: 05/15/24 01:13 Dose: 999 mls/hr Documented By: Infusion: 05/15/24 01:02 Dose: Infused Documented By: Admin: 05/15/24 00:01 Dose: 999 mls/hr Documented By: ELMA Piperacillin Sod/Tazobactam Sod (Zosyn) 4.5 gm in 100 mls @ 200 mls/hr IV NOW ONE; Protocol Stop: 05/15/24 00:37 Last Infusion: 05/15/24 01:47 Dose: Infused Documented By: Admin: 05/15/24 01:02 Dose: 200 mls/hr Documented By: EMB Vancomycin HCl 1,500 mg/ (Sodium Chloride) 530 mls @ 200 mls/hr IV NOW ONE Stop: 05/15/24 02:46 Last Admin: 05/15/24 01:24 Dose: 200 mls/hr Documented By: EMB Pantoprazole Sodium 80 mg/ (Dextrose) 120 mls @ 480 mls/hr IV ONE STA Stop: 05/15/24 00:23 Last Infusion: 05/15/24 01:47 Dose: Infused Documented By: Admin: 05/15/24 01:25 Dose: 480 mls/hr Documented By: EMB Acetaminophen (Ofirmev) 1,000 mg in 100 mls @ 400 mls/hr IV NOW STA Stop: 05/15/24 01:20 Last Infusion: 05/15/24 01:31 Dose: Infused Documented By: Admin: 05/15/24 01:11 Dose: 400 mls/hr Documented By: EMB Phytonadione 5 mg/ Dextrose 50.5 mls @ 101 mls/hr IV ONE ONE Stop: 05/15/24 01:40 Last Infusion: 05/15/24 02:15 Dose: Infused Documented By: Admin: 05/15/24 01:47 Dose: 101 mls/hr Documented By: EMB Sodium Chloride (Nss) 1,000 mls @ 999 mls/hr IV .Q1H1M ONE Stop: 05/15/24 02:27 Last Admin: 05/15/24 01:34 Dose: 999 mls/hr Documented By: EMB Phytonadione 5 mg/ Dextrose 50.5 mls @ 101 mls/hr IV ONE ONE Stop: 05/15/24 02:38 Last Admin: 05/15/24 02:29 Dose: 101 mls/hr Documented By: EMB ECG Additional Comments: Sinus tachycardia Left axis deviation Inferior infarct, age undetermined Abnormal ECG When compared with ECG 21:38, Sinus rhythmhas replacedAtrial fibrillation Inferior infarctis nowPresent ST depression has replaced ST elevation inLateral leads T wave inversion now evident inLateral leads Coding Level of Care Code 05574 CRITICAL CARE 1ST 30-74M Diagnoses Shock, unspecified R57.9 Septic shock A41.9; R65.21 Supratherapeutic INR R79.1 Coffee ground emesis K92.0 Acute respiratory failure with hypoxia J96.01 UTI due to extended-spectrum beta lactamase (ESBL) producing Escherichia coli N39.0; B96.29; Z16.12 History of multiple sclerosis Z86.69
[2024-05-15 03:03] LABS: Appearance Urine Cloudy (Clear)
[2024-05-15 03:04] LABS: Epithelial Cell Urine 0-2 /hpf (0-2); RBC Urine >20 /hpf (0-2)
[2024-05-15 03:05] LABS: Bacteria Urine None Seen (None Seen)
[2024-05-15] MEDS ORDERED: SODIUM CHLORIDE 0.9% 100 ML IV PRN (04:02)
[2024-05-15 04:31] LABS: Hematocrit (blood only) 43.6 % (37.0-47.0); Hemoglobin 13.9 g/dl (12.0-16.0); Mean Corpuscular Hemoglobin 28.1 pg (25.0-34.0); Mean Corpuscular Hgb Conc 31.9 g/dL (32.0-36.0); Mean Corpuscular Volume 88.3 fL (80.0-100.0); Mean Platelet Volume 11.6 fL (9.4-12.4); Platelet Count 272 K/uL (130-400); RDW Coefficient of Variation 15.4 % (11.5-14.5); RDW Standard Deviation 49.2 fL (36.4-46.3); Red Blood Count 4.94 M/uL (4.20-5.40); White Blood Count 25.39 K/ul (4.8-10.8)
--- NOTE | 2024-05-15 04:47 | Billing Data ---
Date of Service May 15, 2024 Coding Level of Care Code 29732 CRITICAL CARE
[2024-05-15 04:49] LABS: Albumin Globulin Ratio 1.2 (0.9-2); Albumin Level 2.8 gm/dl (3.4-5.0); Bilirubin Direct 0.2 mg/dl (0-0.2); Bilirubin,Total 0.7 mg/dl (0.2-1.0); Calcium 7.8 mg/dl (8.6-10.3); Creatinine Clr Calc Pharmacy 33.7 ml/min; Globulin 2.4 gm/dl (2.5-4.0); Potassium 3.9 mmol/L (3.5-5.1); Total Protein 5.2 gm/dl (6.0-8.3)
[2024-05-15 04:57] LABS: Troponin I High Sensitivity 155.6 pg/ml (0-14)
[2024-05-15 05:01] LABS: Basophils # (auto) 0.05 K/uL (0.00-0.20); Basophils % (auto) 0.2 %; Eosinophils # (auto) 0.06 K/uL (0.00-0.50); Eosinophils % (auto) 0.2 %; Immature Granulocytes % (auto) 0.8 %; Lymphocytes # (auto) 2.17 K/uL (1.20-3.40); Lymphocytes % (auto) 8.5 %; Monocytes # (auto) 2.23 K/uL (0.11-0.59); Monocytes % (auto) 8.8 %; Neutrophils # (auto) 20.68 K/uL (1.40-6.50); Neutrophils % (auto) 81.5 %
[2024-05-15 05:02] LABS: INR 2.7 (0.9-1.1); Prothrombin Time 26.5 Seconds (9.0-12.0)
[2024-05-15] MEDS: MEROPENEM 500 MG in SYRINGE 0 ML IV SCH (05:03)
[2024-05-15 05:55] LABS: iSTAT Allen Test Pass; iSTAT Art Bld Gas pCO2 Correct 31 mmHg (35-46); iSTAT Arterial Blood Gas HCO3 22 meg/L (19-24); iSTAT Arterial Blood Gas pCO2 30 mmHg (35-46); iSTAT Arterial Blood Gas pH 7.47 (7.35-7.45); iSTAT Arterial Blood Gas pO2 104 mmHg (80-95); iSTAT Arterial Blood Gas pO2 C 111; iSTAT Carbon Dioxide 22 mmol/L (24-31); iSTAT FiO2 60 %; iSTAT Hematocrit 37 % (37-47); iSTAT Hemoglobin 12.6 g/dl (12.0-16.0); iSTAT Potassium 5.3 mmol/L (3.3-5.0); iSTAT Sample Type Arterial; iSTAT Site L Radial; iSTAT Sodium 142 mmol/L (135-144); iSTAT SpO2 95
[2024-05-15] MEDS: ICU Protocol for HYPERglycemia SCH (06:23)
--- NOTE | 2024-05-15 06:52 | XRay Report ---
XR chest 1V portable CLINICAL HISTORY: Sepsis TECHNIQUE: Single frontal radiograph of the chest was obtained. Comparison: Comparison is made to chest radiograph 02/23/2024 FINDINGS: No lines and tubes are seen. Peribronchial thickening is noted. The lungs are clear. No evidence of p leural effusion or pneumothorax. IMPRESSION: Peribronchial thickening is seen compatible with infectious/inflammatory airways disease or viral pne umonia. No surya consolidation is seen. ACT 112: Negative or not required by law. Electronically signed by: Ted Armstrong M.D. 05/15/2024 6:51 AM
--- NOTE | 2024-05-15 07:00 | XRay Report ---
XR chest 1V portable CLINICAL HISTORY: eval lung doll TECHNIQUE: Single frontal radiograph of the chest was obtained. Comparison: Comparison is made to chest radiograph 05/14/2024 FINDINGS: No lines and tubes are seen. Calcified aortic knob is seen. Bibasilar atelectasis is seen. No evidenc e of pleural effusion or pneumothorax. IMPRESSION: Bibasilar atelectasis is seen. No evidence of consolidation is definitely seen. ACT 112: Negative or not required by law. Electronically signed by: Ted Armstrong M.D. 05/15/2024 6:58 AM
[2024-05-15] MEDS: INFLUENZA VACC TS2024-25(65y+)/PF (IIV3) 0.5mL Syr IM ONE (07:27)
[2024-05-15] MEDS ORDERED: PIPERACILLIN/TAZOBACTAM 4.5 GM/100 ML BAG IV SCH (09:00)
[2024-05-15] MEDS: PANTOprazole 40 MG/10 ML SYR IV SCH (10:49)
[2024-05-15 11:04] LABS: Calcium 8.6 mg/dl (8.6-10.3); Magnesium 1.7 mg/dl (1.7-2.4); Phosphorus 1.7 mg/dl (2.5-4.9); Potassium 4.1 mmol/L (3.5-5.1)
--- NOTE | 2024-05-15 12:23 | XCELERA ---
[id number]
[2024-05-15] MEDS: MEROPENEM 1,000 MG OVER 3 HRS IV SCH (12:44)
[2024-05-15] MEDS: ACETAMINOPHEN 1,000 MG/100 ML VIAL IV PRN (14:21)
--- NOTE | 2024-05-15 19:07 | Hospitalist Progress Note ---
Date of Service May 15, 2024 Assessment & Plan (1) Septic shock: Plan: source? urine? lung? other? follow all cultures cont Meropenem IV cont vancomycin IV levophed has been weaned off cortisol level >60; thus, defer on IV hydrocortisone (2) Acute respiratory failure with hypoxia: Plan: 2nd to aspiration pneumonia? cont O2 and supportive care (3) Aspiration into lower respiratory tract: Plan: suspected may have aspiration pneumonia in light of respiratory failure cont broad-spectrum IV abx therapy supportive care (4) UTI due to extended-spectrum beta lactamase (ESBL) producing Escherichia coli: Plan: history of u/a not terribly suspicious for UTI (although had been on antibiotics preadmission) [id number] cont broad-spectrum IV abx while awaiting cultures (5) Supratherapeutic INR: Plan: as in #7 below (6) Hypernatremia: Plan: 2nd to volume contracted state serial BMPs (7) Recurrent deep vein thrombosis (DVT): Plan: noted on coumadin 5mg daily INR supratherapeutic at 7.4 at time of admission now <3 s/p total of 10mg of vitamin K repeat INR am (8) Acute kidney injury: Plan: Peak Cr 1.67 trending down 2nd to septic shock BMP am baseline Cr is <1 (9) Acute metabolic encephalopathy: Plan: 2nd to septic shock (10) Multiple sclerosis: Plan: typically on gabapentin 600mg TID, Copaxone daily (11) Coffee ground emesis: Plan: while being admitted had such, by report does have prior h/o esophagitis cont PPI bid H/H stable overnight repeat CBC am (12) Paraplegia: Plan: acquired, 2nd to MS? 2nd to dementia? by report is nonambulatory (13) Dementia: Plan: severe by report non-ambulatory DNR/DNI status (14) Elevated LFTs: Plan: 2nd to shock? other? repeat LFTs am (15) Elevated troponin: Plan: peak HS troponin 155 this is likely 2nd to myocardial demand ischemia in the setting of septic shock Admission and Anticipated Discharge Date Admission Date: May 15, 2024 Subjective events of overnight noted levophed was weaned off this afternoon BPs stable since coming off pressors has been sleeping all day altered staff report she woke up briefly to her name being called only (just 1x) Review of Systems Review of Systems: Unobtainable due to cognitive status and Unobtainable due to reduced consciousness Physical Exam Physical Exam: gen - laying in bed, severely altered, did not open her eyes at any point during my exam HENT - PERRL; constant movement of her jaw (almost like tardive dyskinesia vs a rooting/sucking reflex) neck - no JVD mouth - MM dry heart - RRR, s1 s2 lungs - decreased BS bases, slight crackle b/l, no wheeze, mild tachypnea abd - soft NT ND BS+ ext - cool to touch, pulses 1+ b/l feet psych - a/o x 0 neuro - increased tone x 4 exts Results & Data Results & Data Vital Signs (Past 12 Hours) Vital Signs Temp Pulse Resp BP Pulse Ox O2 Del Method O2 Flow Rate 05/15/24 13:01 37.8 C H 75 18 149/61 H 91 7.5 05/15/24 12:40 128/54 L 05/15/24 12:35 110/57 L 05/15/24 12:30 129/61 05/15/24 12:30 37.8 C H 84 19 98 05/15/24 12:20 127/67 05/15/24 12:18 37.7 C H 92 H 21 97 05/15/24 12:15 126/67 05/15/24 12:15 126/67 05/15/24 12:10 124/69 05/15/24 12:06 37.7 C H 102 H 29 H 96 05/15/24 12:05 126/75 05/15/24 12:05 126/75 05/15/24 12:00 138/71 05/15/24 12:00 138/71 05/15/24 11:55 139/74 05/15/24 11:55 139/74 05/15/24 11:51 37.9 C H 96 H 23 98 05/15/24 11:50 130/67 05/15/24 11:45 37.9 C H 90 18 98 05/15/24 11:45 103/60 05/15/24 11:39 37.9 C H 90 19 99 05/15/24 11:35 108/67 05/15/24 11:35 108/67 05/15/24 11:30 104/65 05/15/24 11:27 37.8 C H 81 19 131/57 L 94 7.5 05/15/24 11:25 114/73 05/15/24 11:25 114/73 05/15/24 11:25 114/73 05/15/24 11:20 128/72 05/15/24 11:20 128/72 05/15/24 11:19 37.8 C H 93 H 20 128/72 95 05/15/24 11:15 37.9 C H 103 H 27 H 95 05/15/24 11:15 122/73 05/15/24 11:12 37.8 C H 97 H 18 114/73 94 05/15/24 11:12 37.9 C H 98 H 24 130/67 96 10 05/15/24 11:10 117/67 05/15/24 11:10 117/67 05/15/24 11:06 37.9 C H 103 H 28 H 95 05/15/24 11:05 132/71 05/15/24 11:00 37.9 C H 99 H 28 H 95 05/15/24 11:00 117/71 05/15/24 11:00 117/71 05/15/24 10:55 111/60 05/15/24 10:55 37.9 C H 86 19 111/60 97 05/15/24 10:54 37.9 C H 86 18 96 05/15/24 10:50 114/62 05/15/24 10:50 114/62 05/15/24 10:45 130/67 05/15/24 10:40 121/71 05/15/24 10:36 37.8 C H 94 H 27 H 94 05/15/24 10:35 129/65 05/15/24 10:35 129/65 05/15/24 10:20 125/64 05/15/24 10:15 129/73 05/15/24 10:05 112/74 05/15/24 10:00 112/90 05/15/24 09:55 130/72 05/15/24 09:55 130/72 05/15/24 09:51 119/73 05/15/24 09:45 121/70 05/15/24 09:45 37.8 C H 90 24 94 05/15/24 09:40 118/71 05/15/24 09:33 37.7 C H 88 25 H 93 05/15/24 09:30 123/85 05/15/24 09:30 123/85 05/15/24 09:25 122/70 05/15/24 09:20 118/94 05/15/24 09:15 123/74 05/15/24 09:15 37.7 C H 91 H 26 H 93 05/15/24 09:10 122/80 05/15/24 09:09 37.7 C H 92 H 28 H 93 05/15/24 09:05 121/77 05/15/24 09:05 121/77 05/15/24 09:03 37.7 C H 92 H 28 H 92 05/15/24 09:00 127/72 05/15/24 09:00 127/72 05/15/24 09:00 127/72 05/15/24 08:46 116/72 05/15/24 08:40 116/62 05/15/24 08:36 37.8 C H 79 18 95 05/15/24 08:00 78 05/15/24 08:00 Nasal Cannula 7.5 05/15/24 07:45 37.7 C H 96 H 22 124/57 L 95 10 Laboratory Results Laboratory Results - last 24 hr 05/14/24 05/15/24 05/15/24 23:24 00:40 00:50 WBC 25.83 H RBC 4.91 Hgb 13.8 POC Hgb Hct 44.2 POC Hct MCV 90.0 MCH 28.1 MCHC 31.2 L RDW Std Deviation 50.5 H RDW Coeff of Aparna 15.2 H Plt Count 324 MPV 11.4 Immature Gran % (Auto) 1.0 Neut % (Auto) 83.8 Lymph % (Auto) 6.9 [place] % (Auto) 8.0 Eos % (Auto) 0.0 Baso % (Auto) 0.3 Neut # (Auto) 21.67 H Lymph # (Auto) 1.78 [place] # (Auto) 2.06 H Eos # (Auto) 0.00 Baso # (Auto) 0.07 Immature Gran # (Auto) 0.25 H PT 66.9 H INR 7.4 H* APTT 49 H PTT Ratio 1.8 Specimen Type Sample Site POC pH POC pCO2 POC pO2 POC HCO3 POC Total CO2 POC Base Excess O2 Sat Pulse Oximetry ABG pH (Temp Correct) ABG pCO2 (Temp Corrct POC ABG pO2 at Pt Temp POC ABG O2 Sat Khari Test VBG pH 7.33 L VBG pCO2 52 H VBG pO2 27 VBG HCO3 27 VBG O2 Saturation < 60.0 VBG Base Excess 0.6 O2 Delivery Device POC FiO2 End Tidal CO2 POC Sodium Sodium 148 H POC Potassium Potassium 4.6 Chloride 108 H Carbon Dioxide 27 Anion Gap 13 H BUN 41 H Creatinine 1.67 H Est Cr Clr Drug Dosing Not Reportable eGFR 29.84 BUN/Creatinine Ratio 24.6 H Glucose 149 H POC Glucose 231 H Lactate 7.1 H* Calcium 8.7 Ionized Calcium Phosphorus Magnesium 1.8 Total Bilirubin 0.5 Direct Bilirubin 0.1 AST 75 H ALT 77 H Alkaline Phosphatase 96 Ammonia Troponin I High Sens 118.0 H* Total Protein 5.8 L Albumin 3.1 L Globulin Albumin/Globulin Ratio Procalcitonin 1.53 H Random Cortisol > 60.00 Urine Color Urine Appearance Urine pH Ur Specific [place] Urine Protein Urine Glucose (UA) Urine Ketones Urine Blood Urine Nitrite Urine Bilirubin Urine Urobilinogen Ur Leukocyte Esterase Urine RBC Urine WBC Ur Epithelial Cells Urine Bacteria Nasal Screen MRSA (PCR) SARS-CoV-2 (PCR) NEGATIVE Influenza Type A (PCR) Negative Influenza Type B (PCR) Negative RSV (RT-PCR) Negative Blood Type O Positive Antibody Screen NEGATIVE Crossmatch See Detail 05/15/24 05/15/24 05/15/24 02:26 03:11 03:16 WBC RBC Hgb POC Hgb Hct POC Hct MCV MCH MCHC RDW Std Deviation RDW Coeff of Aparna Plt Count MPV Immature Gran % (Auto) Neut % (Auto) Lymph % (Auto) [place] % (Auto) Eos % (Auto) Baso % (Auto) Neut # (Auto) Lymph # (Auto) [place] # (Auto) Eos # (Auto) Baso # (Auto) Immature Gran # (Auto) PT INR APTT PTT Ratio Specimen Type Sample Site POC pH POC pCO2 POC pO2 POC HCO3 POC Total CO2 POC Base Excess O2 Sat Pulse Oximetry ABG pH (Temp Correct) ABG pCO2 (Temp Corrct POC ABG pO2 at Pt Temp POC ABG O2 Sat Khari Test VBG pH VBG pCO2 VBG pO2 VBG HCO3 VBG O2 Saturation VBG Base Excess O2 Delivery Device POC FiO2 End Tidal CO2 POC Sodium Sodium POC Potassium Potassium Chloride Carbon Dioxide Anion Gap BUN Creatinine Est Cr Clr Drug Dosing eGFR BUN/Creatinine Ratio Glucose POC Glucose Lactate 3.3 H* Calcium Ionized Calcium Phosphorus Magnesium Total Bilirubin Direct Bilirubin AST ALT Alkaline Phosphatase Ammonia 74.0 H Troponin I High Sens Cancelled Total Protein Albumin Globulin Albumin/Globulin Ratio Procalcitonin Random Cortisol Urine Color See Comment Urine Appearance Cloudy A Urine pH Not Reportable Ur Specific [place] 1.030 Urine Protein Not Reportable Urine Glucose (UA) Not Reportable Urine Ketones Not Reportable Urine Blood Not Reportable Urine Nitrite Not Reportable Urine Bilirubin Not Reportable Urine Urobilinogen Not Reportable Ur Leukocyte Esterase Not Reportable Urine RBC >20 H Urine WBC 6-10 H Ur Epithelial Cells 0-2 Urine Bacteria None Seen Nasal Screen MRSA (PCR) Negative SARS-CoV-2 (PCR) Influenza Type A (PCR) Influenza Type B (PCR) RSV (RT-PCR) Blood Type Antibody Screen Crossmatch 05/15/24 05/15/24 05/15/24 03:44 04:09 10:13 WBC 25.39 H RBC 4.94 Hgb 13.9 POC Hgb 12.6 Hct 43.6 POC Hct 37 MCV 88.3 MCH 28.1 MCHC 31.9 L RDW Std Deviation 49.2 H RDW Coeff of Aparna 15.4 H Plt Count 272 MPV 11.6 Immature Gran % (Auto) 0.8 Neut % (Auto) 81.5 Lymph % (Auto) 8.5 [place] % (Auto) 8.8 Eos % (Auto) 0.2 Baso % (Auto) 0.2 Neut # (Auto) 20.68 H Lymph # (Auto) 2.17 [place] # (Auto) 2.23 H Eos # (Auto) 0.06 Baso # (Auto) 0.05 Immature Gran # (Auto) 0.20 PT 26.5 H INR 2.7 H APTT PTT Ratio Specimen Type Arterial Sample Site L Radial POC pH 7.47 H POC pCO2 30 L POC pO2 104 H POC HCO3 22 POC Total CO2 22 L POC Base Excess -2.0 O2 Sat Pulse Oximetry 95 ABG pH (Temp Correct) 7.450 ABG pCO2 (Temp Corrct 31 L POC ABG pO2 at Pt Temp 111 POC ABG O2 Sat 98.0 H Khari Test Pass VBG pH VBG pCO2 VBG pO2 VBG HCO3 VBG O2 Saturation VBG Base Excess O2 Delivery Device NonRb Mask POC FiO2 60 End Tidal CO2 30 POC Sodium 142 Sodium 146 H 145 POC Potassium 5.3 H Potassium 3.9 4.1 Chloride 113 H 115 H Carbon Dioxide 24 21 Anion Gap 9 9 BUN 51 H 68 H Creatinine 1.38 H 1.26 H Est Cr Clr Drug Dosing 33.7 37.0 eGFR 37.51 41.84 BUN/Creatinine Ratio 37.0 H 54.0 H Glucose 136 H 135 H POC Glucose Lactate Calcium 7.8 L 8.6 Ionized Calcium 1.13 Phosphorus 1.7 L Magnesium 1.7 Total Bilirubin 0.7 Direct Bilirubin 0.2 AST 171 H ALT 157 H Alkaline Phosphatase 81 Ammonia Troponin I High Sens 155.6 H* D 124.3 H* D Total Protein 5.2 L Albumin 2.8 L Globulin 2.4 L Albumin/Globulin Ratio 1.2 Procalcitonin Random Cortisol Urine Color Urine Appearance Urine pH Ur Specific [place] Urine Protein Urine Glucose (UA) Urine Ketones Urine Blood Urine Nitrite Urine Bilirubin Urine Urobilinogen Ur Leukocyte Esterase Urine RBC Urine WBC Ur Epithelial Cells Urine Bacteria Nasal Screen MRSA (PCR) SARS-CoV-2 (PCR) Influenza Type A (PCR) Influenza Type B (PCR) RSV (RT-PCR) Blood Type Antibody Screen Crossmatch 05/15/24 05/15/24 05/15/24 11:28 15:45 18:01 WBC RBC Hgb POC Hgb Hct POC Hct MCV MCH MCHC RDW Std Deviation RDW Coeff of Aparna Plt Count MPV Immature Gran % (Auto) Neut % (Auto) Lymph % (Auto) [place] % (Auto) Eos % (Auto) Baso % (Auto) Neut # (Auto) Lymph # (Auto) [place] # (Auto) Eos # (Auto) Baso # (Auto) Immature Gran # (Auto) PT INR APTT PTT Ratio Specimen Type Sample Site POC pH POC pCO2 POC pO2 POC HCO3 POC Total CO2 POC Base Excess O2 Sat Pulse Oximetry ABG pH (Temp Correct) ABG pCO2 (Temp Corrct POC ABG pO2 at Pt Temp POC ABG O2 Sat Khari Test VBG pH VBG pCO2 VBG pO2 VBG HCO3 VBG O2 Saturation VBG Base Excess O2 Delivery Device POC FiO2 End Tidal CO2 POC Sodium Sodium POC Potassium Potassium Chloride Carbon Dioxide Anion Gap BUN Creatinine Est Cr Clr Drug Dosing eGFR BUN/Creatinine Ratio Glucose POC Glucose 119 H 83 Lactate Calcium Ionized Calcium Phosphorus Magnesium Total Bilirubin Direct Bilirubin AST ALT Alkaline Phosphatase Ammonia Troponin I High Sens 98.1 H* D Total Protein Albumin Globulin Albumin/Globulin Ratio Procalcitonin Random Cortisol Urine Color Urine Appearance Urine pH Ur Specific [place] Urine Protein Urine Glucose (UA) Urine Ketones Urine Blood Urine Nitrite Urine Bilirubin Urine Urobilinogen Ur Leukocyte Esterase Urine RBC Urine WBC Ur Epithelial Cells Urine Bacteria Nasal Screen MRSA (PCR) SARS-CoV-2 (PCR) Influenza Type A (PCR) Influenza Type B (PCR) RSV (RT-PCR) Blood Type Antibody Screen Crossmatch Diagnostic Findings Chest X-Ray 05/14/24 23:28 XR chest 1V portable CLINICAL HISTORY: Sepsis TECHNIQUE: Single frontal radiograph of the chest was obtained. Comparison: Comparison is made to chest radiograph 02/23/2024 FINDINGS: No lines and tubes are seen. Peribronchial thickening is noted. The lungs are clear. No evidence of pleural effusion or pneumothorax. IMPRESSION: Peribronchial thickening is seen compatible with infectious/inflammatory airways disease or viral pneumonia. No surya consolidation is seen. ACT 112: Negative or not required by law. Electronically signed by: Ted Armstrong M.D. 05/15/2024 6:51 AM Chest X-Ray 05/15/24 06:30 XR chest 1V portable CLINICAL HISTORY: eval lung doll TECHNIQUE: Single frontal radiograph of the chest was obtained. Comparison: Comparison is made to chest radiograph 05/14/2024 FINDINGS: No lines and tubes are seen. Calcified aortic knob is seen. Bibasilar atelectasis is seen. No evidence of pleural effusion or pneumothorax. IMPRESSION: Bibasilar atelectasis is seen. No evidence of consolidation is definitely seen. ACT 112: Negative or not required by law. Electronically signed by: Ted Armstrong M.D. 05/15/2024 6:58 AM PG Care Time/CCT Total # of Minutes Spent Total Time Spent with Patient: Total time spent is greater than 50% in coordination of care (as documented) at patient's floor/unit and/or counseling patient: Coding Level of Care Code None Diagnoses Septic shock A41.9; R65.21 Acute respiratory failure with hypoxia J96.01 Aspiration into lower respiratory tract T17.800A UTI due to extended-spectrum beta lactamase (ESBL) producing Escherichia coli N39.0; B96.29; Z16.12 Supratherapeutic INR R79.1 Hypernatremia E87.0 Recurrent deep vein thrombosis (DVT) I82.409 Acute kidney injury N17.9 Acute metabolic encephalopathy G93.41 Multiple sclerosis G35 Coffee ground emesis K92.0 Paraplegia G82.20 Dementia F03.90 Elevated LFTs R79.89 Elevated troponin R79.89
[2024-05-15] MEDS: STAT IV Infusion **Titration per Protocol STA (20:47)
--- NOTE | 2024-05-15 22:28 | Electrocardiogram Report ---
Test Reason : Blood Pressure : */* mmHG Vent. Rate : 139 BPM Atrial Rate : 139 BPM P-R Int : 138 ms QRS Dur : 64 ms QT Int : 270 ms P-R-T Axes : 20 -55 95 degrees QTcB Int : 410 ms Sinus tachycardia Left axis deviation Inferior infarct , age undetermined Poor R wave progression, consider anterior PA vs. lead placement vs. LVH Nonspecific ST abnormality Abnormal ECG Confirmed by Chadwick Rogers ([id number]) on 05/15/2024 10:28:26 PM Referred By: REFERRED SELF Confirmed By: Chadwick Rogers
[2024-05-16 04:51] LABS: Basophils # (auto) 0.03 K/uL (0.00-0.20); Basophils % (auto) 0.1 %; Hematocrit (blood only) 39.1 % (37.0-47.0); Hemoglobin 12.4 g/dl (12.0-16.0); Immature Granulocytes # (auto) 0.09 K/uL (0.01-0.20); Immature Granulocytes % (auto) 0.4 %; Lymphocytes # (auto) 1.49 K/uL (1.20-3.40); Lymphocytes % (auto) 7.2 %; Mean Corpuscular Hemoglobin 28.4 pg (25.0-34.0); Mean Corpuscular Hgb Conc 31.7 g/dL (32.0-36.0); Mean Corpuscular Volume 89.5 fL (80.0-100.0); Mean Platelet Volume 11.9 fL (9.4-12.4); Monocytes # (auto) 1.47 K/uL (0.11-0.59); Monocytes % (auto) 7.1 %; Neutrophils # (auto) 17.73 K/uL (1.40-6.50); Neutrophils % (auto) 85.2 %; Platelet Count 211 K/uL (130-400); RDW Coefficient of Variation 15.9 % (11.5-14.5); RDW Standard Deviation 51.8 fL (36.4-46.3); Red Blood Count 4.37 M/uL (4.20-5.40); White Blood Count 20.81 K/ul (4.8-10.8)
[2024-05-16 05:09] LABS: Albumin Globulin Ratio 1.2 (0.9-2); Albumin Level 3.3 gm/dl (3.4-5.0); BUN Creatinine Ratio 55.8 (10-20); Bilirubin,Total 0.5 mg/dl (0.2-1.0); Creatinine Clr Calc Pharmacy 44.8 ml/min; Globulin 2.8 gm/dl (2.5-4.0); Magnesium 1.6 mg/dl (1.7-2.4); Potassium 3.5 mmol/L (3.5-5.1); Total Protein 6.1 gm/dl (6.0-8.3)
[2024-05-16 05:29] LABS: Partial Thromboplastin Ratio 0.9; Partial Thromboplastin Time 25 Seconds (21-31); Prothrombin Time 11.2 Seconds (9.0-12.0)
[2024-05-16] MEDS: MAGNESIUM SULFATE / D5W 1 GM/100 ML BAG IV SCH (07:54)
[2024-05-16] MEDS: METOPROLOL TARTRATE 25 MG TAB PO SCH (09:39)
[2024-05-16 11:04] LABS: A calco-baum cmplx NotReported Not Detected (NotDetected); Bact fragilis Not Reported Not Detected (NotDetected); Blood Culture Id Panel See PCR Comment (NotDetected); C auris Not Reported Not Detected (NotDetected); Calbicans Not Reported Not Detected (NotDetected); Candida glabrata Not Reported DETECTED (NotDetected); Candida krusei Not Reported Not Detected (NotDetected); Cneoformans/gatti Not Reported Not Detected (NotDetected); Cparapsilosis Not Reported Not Detected (NotDetected); E cloacae compx Not Reported Not Detected (NotDetected); Efaecalis Not Reported Not Detected (NotDetected); Efaecium Not Reported Not Detected (NotDetected); Enterobacterales Not Reported Not Detected (NotDetected); Escherichia coli Not Reported Not Detected (NotDetected); H influenzae Not Reported Not Detected (NotDetected); K aerogenes Not Reported Not Detected (NotDetected); Koxytoca Not Reported Not Detected (NotDetected); Kpneumoniae grp Not Reported Not Detected (NotDetected); Lmonocyt Not Reported Not Detected (NotDetected); N meningitidis Not Reported Not Detected (NotDetected); P aeruginosa Not Reported Not Detected (NotDetected); Proteus spp Not Reported Not Detected (NotDetected); Salmonella spp Not Reported Not Detected (NotDetected); Staph lugdunensis Not Reported Not Detected (NotDetected); Staph spp. Not Reported Not Detected (NotDetected); Staphaureus Not Reported Not Detected (NotDetected); Staphepi Not Reported Not Detected (NotDetected); Stenmaltophilia Not Reported Not Detected (NotDetected); Strep agal(GrpB) Not Reported Not Detected (NotDetected); Strep pneum Not Reported Not Detected (NotDetected); Strep pyog (GrpA) Not Reported Not Detected (NotDetected); Strep spp Not Reported Not Detected (NotDetected)
[2024-05-16] MEDS ORDERED: Heparin IV Adult Wt-Based Low-Dose *NO* INITIAL Bolus Protocol IV STA (11:07)
--- NOTE | 2024-05-16 11:12 | Critical Care Progress Note ---
Date of Service May 16, 2024 Assessment & Plan (1) Septic shock: Plan: Shock has resolved and the patient has been off vasopressors for greater than 12 hours. Suspect shock was multifactorial from hypovolemia and sepsis. Doubtful of pneumonia at this time given relatively unremarkable chest x-ray. She has minimal bibasilar atelectasis likely due to poor respiratory effort. She is stable for downgrade out of the ICU at this point in time. Will continue with meropenem as likely source of septic shock at this ESBL UTI. (2) Supratherapeutic INR: Plan: INR today is 1.0. Will start the patient today on low-dose heparin infusion without bolus. Will defer bridging to warfarin to the hospitalist service. She has a history of DVT. (3) Acute metabolic encephalopathy: Plan: Multifactorial related to sepsis, TATIA[place] and acute delirium in the setting of dementia. (4) Recurrent deep vein thrombosis (DVT): Plan: Heparin drip as noted above. Monitor for signs of bleeding. Reportedly had coffee-ground emesis, but no evidence of emesis in the ICU. Continue PPI. (5) UTI due to extended-spectrum beta lactamase (ESBL) producing Escherichia coli: Plan: Patient on meropenem. Appreciate pharmacy with assistance of dosing. Follow-up blood and urine cultures. (6) Hypernatremia: Plan: Secondary to poor p.o. intake and dehydration. Agree with D5 infusion for the time being. May need to consider NG tube and tube feeds. Plan Patient DNR/DNI. Will be transferred out of the ICU to the hospitalist service. Strongly encourage palliative care consultation given patient's advanced age, dementia and multiple comorbidities. Admission and Anticipated Discharge Date Admission Date: May 15, 2024 Subjective Patient remains lethargic with altered mental status. She is protecting her airway but does not follow any commands. She withdraws from painful stimuli. Review of Systems Review of Systems: Unobtainable due to cognitive status Physical Exam Physical Exam: Constitutional: Patient appears delirious and elderly. No apparent distress. Eyes: Pupils are equal round and reactive to light. Conjunctivae are normal. Anicteric sclera. Ears nose, mouth and throat: Mallampati class 2. Normal posterior oropharynx. Uvula is midline. Neck: Trachea is midline. Visual inspection is normal. Respiratory: Clear to auscultation bilaterally. No use of accessory muscles. No significant clubbing noted. Cardiovascular: Regular rate and rhythm. No murmurs. No edema. Gastrointestinal: Normal bowel sounds, soft, nontender and nondistended. No hepatosplenomegaly noted. Musculoskeletal: No cyanosis. Patient is able to move all extremities. Strength is 5 out of 5 in the upper and lower extremities. Skin: No rashes, warm dry and intact. Neurologic: No obvious focal neurological deficits seen. Psychiatric: Minimally communicative. Results & Data Results & Data Vital Signs (Past 12 Hours) Vital Signs Temp Pulse Resp BP Pulse Ox Pulse Ox O2 Del Method 05/16/24 08:00 Oxymask 05/16/24 08:00 59 L 05/16/24 07:06 36.4 C L 68 17 96 05/16/24 07:00 130/63 05/16/24 06:54 36.7 C 20 96 05/16/24 06:39 37.0 C 70 15 98 05/16/24 06:15 37.1 C 78 16 98 05/16/24 06:00 122/60 05/16/24 06:00 122/60 05/16/24 06:00 37.2 C 75 16 98 05/16/24 05:54 37.3 C 84 19 97 05/16/24 05:36 37.5 C 77 15 95 05/16/24 05:15 37.8 C H 79 16 98 05/16/24 05:03 102/45 L 05/16/24 05:03 102/45 L 05/16/24 05:03 38.0 C H 89 18 97 05/16/24 05:01 55/39 L 05/16/24 04:42 38.2 C H 94 H 18 96 05/16/24 04:30 38.3 C H 104 H 18 95 05/16/24 04:15 38.3 C H 103 H 17 94 05/16/24 04:12 38.3 C H 112 H 23 96 05/16/24 04:03 160/78 H 05/16/24 04:00 38.3 C H 115 H 25 H 94 05/16/24 03:57 38.3 C H 113 H 23 94 05/16/24 03:33 38.4 C H 115 H 24 95 05/16/24 03:18 38.4 C H 117 H 23 93 05/16/24 03:17 95 05/16/24 03:06 38.4 C H 115 H 24 95 05/16/24 03:00 158/110 H 05/16/24 02:42 38.4 C H 119 H 28 H 94 05/16/24 02:32 38.4 C H 116 H 27 H 94 05/16/24 02:20 38.4 C H 119 H 26 H 94 05/16/24 02:02 38.4 C H 120 H 28 H 93 05/16/24 02:00 157/81 H 05/16/24 01:14 38.2 C H 114 H 28 H 89 L 05/16/24 01:03 38.1 C H 113 H 28 H 90 05/16/24 01:00 170/77 H 05/16/24 01:00 170/77 H 05/16/24 00:39 38.0 C H 110 H 28 H 92 05/16/24 00:30 38.0 C H 109 H 27 H 91 05/16/24 00:15 38.0 C H 112 H 30 H 92 05/16/24 00:00 154/72 H 05/16/24 00:00 154/72 H 05/16/24 00:00 38.0 C H 110 H 28 H 92 05/16/24 00:00 111 H 05/16/24 00:00 95 05/15/24 23:48 38.0 C H 113 H 28 H 90 05/15/24 23:30 38.0 C H 99 H 23 93 05/15/24 23:06 37.9 C H 104 H 25 H 91 O2 Del Method O2 Flow Rate 05/16/24 08:00 05/16/24 08:00 05/16/24 07:06 05/16/24 07:00 05/16/24 06:54 05/16/24 06:39 05/16/24 06:15 05/16/24 06:00 05/16/24 06:00 05/16/24 06:00 05/16/24 05:54 05/16/24 05:36 05/16/24 05:15 05/16/24 05:03 05/16/24 05:03 05/16/24 05:03 05/16/24 05:01 05/16/24 04:42 05/16/24 04:30 05/16/24 04:15 05/16/24 04:12 05/16/24 04:03 05/16/24 04:00 05/16/24 03:57 05/16/24 03:33 05/16/24 03:18 05/16/24 03:17 Oxymask 4 05/16/24 03:06 05/16/24 03:00 05/16/24 02:42 05/16/24 02:32 05/16/24 02:20 05/16/24 02:02 05/16/24 02:00 05/16/24 01:14 05/16/24 01:03 05/16/24 01:00 05/16/24 01:00 05/16/24 00:39 05/16/24 00:30 05/16/24 00:15 05/16/24 00:00 05/16/24 00:00 05/16/24 00:00 05/16/24 00:00 05/16/24 00:00 Oxymask 4 05/15/24 23:48 05/15/24 23:30 05/15/24 23:06 Coding Level of Care Code 56711 SUB INP/OBS CARE 3/50MIN Diagnoses Septic shock A41.9; R65.21 Supratherapeutic INR R79.1 Acute metabolic encephalopathy G93.41 Recurrent deep vein thrombosis (DVT) I82.409 UTI due to extended-spectrum beta lactamase (ESBL) producing Escherichia coli N39.0; B96.29; Z16.12 Hypernatremia E87.0
[2024-05-16 11:16] LABS: Candida glabrata DETECTED (NotDetected)
[2024-05-16] MEDS: POTASSIUM CHLORIDE 20 MEQ in D5W AND 0.2% NaCL 1,000 ML IV SCH (11:16)
--- NOTE | 2024-05-16 11:25 | Hospitalist Progress Note ---
Date of Service May 16, 2024 Assessment & Plan (1) Fungemia: Plan: 1 out of 4 admission blood cx's + for yeast BioFire shows the yeast is evita glabrata the majority of c glabrata strains are diflucan resistant thus, start caspofungin IV will repeat blood cx's later today source?? recent urine cx x 2 without yeast no skin breakdown per nursing she is immunocompromised due to her advanced dementia status, having multiple sclerosis, being on Copaxone, etc. [id number] the source is uncertain (2) Septic shock: Plan: source - lung (LLL pneumonia as seen on CXR today) yeast in blood also contributing but the source for the yeast is uncertain cont Meropenem IV for LLL pneumonia adding Caspofungin IV for fungemia (see #1 above) levophed has been weaned off cortisol level >60; thus, deferred on IV hydrocortisone (3) Acute respiratory failure with hypoxia: Plan: 2nd to LLL pneumonia cont O2 support cont abx (4) Aspiration into lower respiratory tract: Plan: I spoke with the pt's son and he states she does not have any h/o dysphagia [id number] at HIGH risk of such due to her multiple sclerosis & dementia she is too somnolent to take anything by mouth - make NPO will have speech perform swallow eval when more awake (5) UTI due to extended-spectrum beta lactamase (ESBL) producing Escherichia coli: Plan: history of urine cx negative this admission (6) Supratherapeutic INR: Plan: as in #7 below resolved INR now <2 critical care team starting heparin drip - she is at high risk of VTE (7) Hypernatremia: Plan: 2nd to volume contracted state start D51/4NS with KCL - run 100cc/hr repeat BMP 6 hours after starting such (8) Recurrent deep vein thrombosis (DVT): Plan: noted on coumadin 5mg daily for such INR supratherapeutic at 7.4 at time of admission now <2 s/p total of 10mg of vitamin K at time of admission due to coffee-ground emesis (by report) starting heparin infusion per critical care team (9) Acute kidney injury: Plan: Peak Cr 1.67 Cr now 1 2nd to septic shock (sepsis-associated ATN) BMP am baseline Cr is <1 (10) Acute metabolic encephalopathy: Plan: 2nd to septic shock, fungemia, LLL pneumonia, etc. (11) Multiple sclerosis: Plan: typically on gabapentin 600mg TID, Copaxone daily - all on hold (12) Coffee ground emesis: Plan: while being admitted had such, by report does have prior h/o esophagitis cont PPI bid IV H/H remain stable (13) Paraplegia: Plan: acquired, 2nd to MS? 2nd to dementia? by report is nonambulatory (14) Dementia: Plan: severe by report non-ambulatory DNR/DNI status spoke with pt's son Victoriano - she has some remote memory from her childhood, but short-term memory is non-existent (15) Elevated LFTs: Plan: 2nd to shock? other? repeat LFTs today +/- same repeat them in am (16) Elevated troponin: Plan: peak HS troponin 155 this is likely 2nd to myocardial demand ischemia in the setting of septic shock Plan sonVictoriano, updated by phone [phone] I asked Victoriano about what to do about his mother's nutrition stated to him only option would be NG tube feedings he is agreeable to holding off on such and seeing how she does over the next couple of days prognosis is guarded Admission and Anticipated Discharge Date Admission Date: May 15, 2024 Subjective patient somnolent did not respond to her name being called did not respond at all during my physical exam sternal rub did not cause her to wake up BP stable all night did have escalating O2 requirements overnight but those have been weaned since this am Review of Systems Review of Systems: Unobtainable due to cognitive status and Unobtainable due to reduced consciousness Physical Exam Physical Exam: gen - laying in bed, severely altered, somnolent, did not open her eyes at any point during my exam neck - no JVD mouth - MM dry heart - RRR, s1 s2, no murmur lungs - decreased BS bases, slight crackle b/l bases, course BS b/l abd - soft NT ND BS+ ext - pulses 1-2+ b/l feet psych - a/o x 0 neuro - increased tone x 4 exts especially her arms Results & Data Results & Data Vital Signs (Past 12 Hours) Vital Signs Temp Pulse Resp BP Pulse Ox Pulse Ox O2 Del Method 05/16/24 08:00 Oxymask 05/16/24 08:00 59 L 10/26/24 07:06 36.4 C L 68 17 96 05/16/24 07:00 130/63 05/16/24 06:54 36.7 C 20 96 05/16/24 06:39 37.0 C 70 15 98 05/16/24 06:15 37.1 C 78 16 98 05/16/24 06:00 122/60 05/16/24 06:00 122/60 05/16/24 06:00 37.2 C 75 16 98 05/16/24 05:54 37.3 C 84 19 97 05/16/24 05:36 37.5 C 77 15 95 05/16/24 05:15 37.8 C H 79 16 98 05/16/24 05:03 102/45 L 05/16/24 05:03 102/45 L 05/16/24 05:03 38.0 C H 89 18 97 05/16/24 05:01 55/39 L 05/16/24 04:42 38.2 C H 94 H 18 96 05/16/24 04:30 38.3 C H 104 H 18 95 05/16/24 04:15 38.3 C H 103 H 17 94 05/16/24 04:12 38.3 C H 112 H 23 96 05/16/24 04:03 160/78 H 05/16/24 04:00 38.3 C H 115 H 25 H 94 05/16/24 03:57 38.3 C H 113 H 23 94 05/16/24 03:33 38.4 C H 115 H 24 95 05/16/24 03:18 38.4 C H 117 H 23 93 05/16/24 03:17 95 05/16/24 03:06 38.4 C H 115 H 24 95 05/16/24 03:00 158/110 H 05/16/24 02:42 38.4 C H 119 H 28 H 94 05/16/24 02:32 38.4 C H 116 H 27 H 94 05/16/24 02:20 38.4 C H 119 H 26 H 94 05/16/24 02:02 38.4 C H 120 H 28 H 93 05/16/24 02:00 157/81 H 05/16/24 01:14 38.2 C H 114 H 28 H 89 L 05/16/24 01:03 38.1 C H 113 H 28 H 90 05/16/24 01:00 170/77 H 05/16/24 01:00 170/77 H 05/16/24 00:39 38.0 C H 110 H 28 H 92 05/16/24 00:30 38.0 C H 109 H 27 H 91 05/16/24 00:15 38.0 C H 112 H 30 H 92 05/16/24 00:00 154/72 H 05/16/24 00:00 154/72 H 05/16/24 00:00 38.0 C H 110 H 28 H 92 05/16/24 00:00 111 H 05/16/24 00:00 95 05/15/24 23:48 38.0 C H 113 H 28 H 90 05/15/24 23:30 38.0 C H 99 H 23 93 Laboratory Results Laboratory Results - last 24 hr 05/15/24 05/15/24 05/15/24 00:40 11:28 15:45 WBC RBC Hgb Hct MCV MCH MCHC RDW Std Deviation RDW Coeff of Aparna Plt Count MPV Immature Gran % (Auto) Neut % (Auto) Lymph % (Auto) [place] % (Auto) Eos % (Auto) Baso % (Auto) Neut # (Auto) Lymph # (Auto) [place] # (Auto) Eos # (Auto) Baso # (Auto) Immature Gran # (Auto) PT INR APTT PTT Ratio Sodium Potassium Chloride Carbon Dioxide Anion Gap BUN Creatinine Est Cr Clr Drug Dosing eGFR BUN/Creatinine Ratio Glucose POC Glucose 119 H Calcium Phosphorus Magnesium Total Bilirubin AST ALT Alkaline Phosphatase Troponin I High Sens 98.1 H* D Total Protein Albumin Globulin Albumin/Globulin Ratio C. glabrata (PCR) DETECTED A Bld Cult ID Panel PCR See PCR Comment 05/15/24 05/16/24 05/16/24 18:01 00:46 04:35 WBC 20.81 H RBC 4.37 Hgb 12.4 Hct 39.1 MCV 89.5 MCH 28.4 MCHC 31.7 L RDW Std Deviation 51.8 H RDW Coeff of Aparna 15.9 H Plt Count 211 MPV 11.9 Immature Gran % (Auto) 0.4 Neut % (Auto) 85.2 Lymph % (Auto) 7.2 [place] % (Auto) 7.1 Eos % (Auto) 0.0 Baso % (Auto) 0.1 Neut # (Auto) 17.73 H Lymph # (Auto) 1.49 [place] # (Auto) 1.47 H Eos # (Auto) 0.00 Baso # (Auto) 0.03 Immature Gran # (Auto) 0.09 PT 11.2 INR 1.0 APTT 25 PTT Ratio 0.9 Sodium 149 H Potassium 3.5 Chloride 116 H Carbon Dioxide 23 Anion Gap 10 BUN 58 H Creatinine 1.04 Est Cr Clr Drug Dosing 44.8 eGFR 52.67 BUN/Creatinine Ratio 55.8 H Glucose 101 H POC Glucose 83 82 Calcium 9.0 Phosphorus 2.0 L Magnesium 1.6 L Total Bilirubin 0.5 AST 92 H ALT 169 H Alkaline Phosphatase 78 Troponin I High Sens Total Protein 6.1 Albumin 3.3 L Globulin 2.8 Albumin/Globulin Ratio 1.2 C. glabrata (PCR) Bld Cult ID Panel PCR Diagnostic Findings Chest X-Ray 05/16/24 11:23 SINGLE VIEW CHEST CLINICAL HISTORY: Sepsis FINDINGS: An AP, portable, upright chest radiograph is compared to study dated 05/15/2024 and correlated with chest CT dated 02/22/2024. The examination is significantly degraded by portable technique and patient rotation. The heart is enlarged and noted atherosclerotic calcification of the thoracic aorta. The pulmonary vasculature is noncongested. Emphysema and chronic interstitial thickening is similar to previous. Airspace consolidation is seen at the left lung base. Scar/atelectasis is noted at the right lung base. No large pleural effusion or pneumothorax is identified. The skeletal structures are osteopenic. The bony thorax is grossly intact. Degenerative change is noted in the thoracic spine. IMPRESSION: 1. Cardiomegaly and emphysema without radiographic evidence of congestive failure. 2. There is left basilar consolidation. Correlate clinically for evidence of pneumonia/aspiration place. Radiographic follow-up to resolution is recommended ACT 112: Negative or not required by law. Electronically signed by: Issac Rebolledo M.D. 05/16/2024 1:07 PM PG Care Time/CCT Total # of Minutes Spent Total Time Spent with Patient: Total time spent is greater than 50% in coordination of care (as documented) at patient's floor/unit and/or counseling patient: Coding Level of Care Code 32077 SUB INP/OBS CARE 3/50MIN Diagnoses Fungemia B49 Septic shock A41.9; R65.21 Acute respiratory failure with hypoxia J96.01 Aspiration into lower respiratory tract T17.800A UTI due to extended-spectrum beta lactamase (ESBL) producing Escherichia coli N39.0; B96.29; Z16.12 Supratherapeutic INR R79.1 Hypernatremia E87.0 Recurrent deep vein thrombosis (DVT) I82.409 Acute kidney injury N17.9 Acute metabolic encephalopathy G93.41 Multiple sclerosis G35 Coffee ground emesis K92.0 Paraplegia G82.20 Dementia F03.90 Elevated LFTs R79.89 Elevated troponin R79.89
[2024-05-16] MEDS ORDERED: CASPOFUNGIN 50 MG in SODIUM CHLORIDE 0.9% 250 ML IV SCH (11:30)
[2024-05-16] MEDS: HEPARIN SODIUM/DEXTROSE 25,000 UNITS/500 ML BAG IV SCH (12:30)
[2024-05-16] MEDS: CASPOFUNGIN 70 MG in SODIUM CHLORIDE 0.9% 250 ML IV ONE (12:30)
--- NOTE | 2024-05-16 13:09 | XRay Report ---
SINGLE VIEW CHEST CLINICAL HISTORY: Sepsis FINDINGS: An AP, portable, upright chest radiograph is compared to study dated 05/15/2024 and correla flores with chest CT dated 02/22/2024. The examination is significantly degraded by portable technique and patient rotation. The heart is enlarged and noted atherosclerotic calcification of the thoracic aor ta. The pulmonary vasculature is noncongested. Emphysema and chronic interstitial thickening is simil ar to previous. Airspace consolidation is seen at the left lung base. Scar/atelectasis is noted at th e right lung base. No large pleural effusion or pneumothorax is identified. The skeletal structures a re osteopenic. The bony thorax is grossly intact. Degenerative change is noted in the thoracic spine. IMPRESSION: 1. Cardiomegaly and emphysema without radiographic evidence of congestive failure. 2. There is left basilar consolidation. Correlate clinically for evidence of pneumonia/aspiration talia ce. Radiographic follow-up to resolution is recommended ACT 112: Negative or not required by law. Electronically signed by: Issac Rebolledo M.D. 05/16/2024 1:07 PM
[2024-05-16] MEDS: ACETAMINOPHEN 1,000 MG/100 ML VIAL IV PRN (18:22)
[2024-05-16 18:36] LABS: BUN Creatinine Ratio 56.6 (10-20); Calcium 8.9 mg/dl (8.6-10.3); Creatinine Clr Calc Pharmacy 61.3 ml/min; Magnesium 2.1 mg/dl (1.7-2.4); Potassium 3.4 mmol/L (3.5-5.1)
[2024-05-16 18:54] LABS: ANTI-Xa, UFH(UnfractionatedHep 0.19 IU/ml (0.3-0.7)
[2024-05-16] MEDS ORDERED: Nursing to Pharmacy Communication SCH ×2 (19:45→22:00)
[2024-05-16] MEDS: HEPARIN SOD (PORCINE) 1000 UNIT/ML IV ONE (20:27)
[2024-05-17 09:18] LABS: Albumin Globulin Ratio 1.1 (0.9-2); Albumin Level 2.9 gm/dl (3.4-5.0); BUN Creatinine Ratio 49.2 (10-20); Bilirubin,Total 0.5 mg/dl (0.2-1.0); Calcium 8.5 mg/dl (8.6-10.3); Creatinine Clr Calc Pharmacy 72.1 ml/min; Globulin 2.6 gm/dl (2.5-4.0); Magnesium 1.8 mg/dl (1.7-2.4); Total Protein 5.5 gm/dl (6.0-8.3)
[2024-05-17 09:28] LABS: ANTI-Xa, UFH(UnfractionatedHep 0.23 IU/ml (0.3-0.7)
[2024-05-17 09:44] LABS: Basophils # (auto) 0.03 K/uL (0.00-0.20); Basophils % (auto) 0.2 %; Eosinophils # (auto) 0.02 K/uL (0.00-0.50); Eosinophils % (auto) 0.1 %; Hematocrit (blood only) 33.9 % (37.0-47.0); Hemoglobin 10.7 g/dl (12.0-16.0); Immature Granulocytes # (auto) 0.13 K/uL (0.01-0.20); Immature Granulocytes % (auto) 0.7 %; Lymphocytes # (auto) 1.52 K/uL (1.20-3.40); Lymphocytes % (auto) 8.4 %; Mean Corpuscular Hemoglobin 28.4 pg (25.0-34.0); Mean Corpuscular Hgb Conc 31.6 g/dL (32.0-36.0); Mean Corpuscular Volume 89.9 fL (80.0-100.0); Monocytes # (auto) 1.05 K/uL (0.11-0.59); Monocytes % (auto) 5.8 %; Neutrophils # (auto) 15.24 K/uL (1.40-6.50); Neutrophils % (auto) 84.8 %; Platelet Count 211 K/uL (130-400); RDW Coefficient of Variation 15.8 % (11.5-14.5); RDW Standard Deviation 51.8 fL (36.4-46.3); Red Blood Count 3.77 M/uL (4.20-5.40); White Blood Count 17.99 K/ul (4.8-10.8)
[2024-05-17] MEDS ORDERED: CASPOFUNGIN 50 MG in SODIUM CHLORIDE 0.9% 250 ML IV SCH (11:30)
[2024-05-17] MEDS: CASPOFUNGIN 35 MG in SODIUM CHLORIDE 0.9% 250 ML IV SCH (11:38)
[2024-05-17] MEDS: POTASSIUM CHLORIDE / WTR 10 MEQ/100 ML PLCT IV SCH (13:19)
--- NOTE | 2024-05-17 15:31 | Hospitalist Progress Note ---
Date of Service May 17, 2024 Assessment & Plan (1) Fungemia: Plan: multiple admission blood cx's + for yeast BioFire shows the yeast is evita glabrata the majority of c glabrata strains are diflucan resistant thus, is on caspofungin IV - day #2 of such repeat fungal blood cx's were obtained late in the day on 05/16 source remains uncertain recent urine cx x 2 without yeast no skin breakdown per nursing she is immunocompromised due to her advanced dementia status, having multiple sclerosis, being on Copaxone, etc. [id number] the source is uncertain will obtain CT abd/pelvis to r/o intra-abdominal fluid collection, etc - any intra-abdominal pathology - that could have caused this (2) Septic shock: Plan: source - lung (LLL pneumonia) yeast in blood also contributing but the source for the yeast is uncertain cont Meropenem IV for LLL pneumonia cont Caspofungin IV for fungemia (see #1 above) levophed weaned off 05/15 cortisol level >60; thus, deferred on IV hydrocortisone (3) Acute respiratory failure with hypoxia: Plan: 2nd to LLL pneumonia cont O2 support cont abx (4) Aspiration into lower respiratory tract: Plan: I spoke with the pt's son and he states she does not have any h/o dysphagia [id number] at HIGH risk of such due to her multiple sclerosis & dementia she is too somnolent to take anything by mouth - cont NPO status will have speech perform swallow eval when more awake (5) UTI due to extended-spectrum beta lactamase (ESBL) producing Escherichia coli: Plan: history of urine cx negative this admission (6) Supratherapeutic INR: Plan: as in #7 below resolved INR now <2 is on heparin drip for bridging purposes as she is at high risk of VTE (7) Hypernatremia: Plan: 2nd to volume contracted state s/p hypotonic fluids overnight -- Na level much improved BMP am (8) Recurrent deep vein thrombosis (DVT): Plan: noted typically on coumadin 5mg daily for such INR supratherapeutic at 7.4 at time of admission now <2 s/p total of 10mg of vitamin K at time of admission due to coffee-ground emesis (by report) remains on heparin infusion (9) Acute kidney injury: Plan: Peak Cr 1.67 Cr now 0.65 resolved TATIANA was 2nd to septic shock (sepsis-associated ATN) BMP am (10) Acute metabolic encephalopathy: Plan: 2nd to septic shock, fungemia, LLL pneumonia, etc. ongoing severe (11) Multiple sclerosis: Plan: typically on gabapentin 600mg TID, Copaxone daily - all on hold (12) Coffee ground emesis: Plan: while being admitted had such, by report does have prior h/o esophagitis cont PPI bid IV H/H remain stable (13) Paraplegia: Plan: acquired, 2nd to MS? 2nd to dementia? by report is nonambulatory (14) Dementia: Plan: severe by report non-ambulatory DNR/DNI status spoke with pt's son Victoriano - she has some remote memory from her childhood, but short-term memory is non-existent (15) Elevated LFTs: Plan: 2nd to shock? other? repeat LFTs improved today (16) Elevated troponin: Plan: peak HS troponin 155 this is likely 2nd to myocardial demand ischemia in the setting of septic shock Plan sonVictoriano, updated by phone on 05/16; will update him again today ([phone]) I asked Victoriano about what to do about his mother's nutrition stated to him only option would be NG tube feedings he is agreeable to holding off on such and seeing how she does over the next couple of days prognosis is guarded Admission and Anticipated Discharge Date Admission Date: May 15, 2024 Subjective patient remains unresponsive during the visit I called her name "Joan" multiple times only 1x did she moan something unintelligible per staff no concerns or issues tele - stable overnight Review of Systems Review of Systems: Unobtainable due to cognitive status and Unobtainable due to reduced consciousness Physical Exam Physical Exam: gen - laying in bed, severely altered, somnolent, did not open her eyes, only moaned 1x eyes - pupils about 2-3MM b/l, reactive, lens implants b/l neck - no JVD mouth - MM still dry heart - RRR, s1 s2, no murmur lungs - decreased BS bases especially on left; no rales or wheezes; no increased work of breathing abd - soft NT ND BS+ ext - pulses 1-2+ b/l feet, no edema psych - a/o x 0 neuro - increased tone x 4 exts especially her arms Results & Data Results & Data Vital Signs (Past 12 Hours) Vital Signs Temp Pulse Pulse Resp BP BP Pulse Ox 05/17/24 14:44 36.3 C L 79 16 144/72 H 100 05/17/24 14:02 66 05/17/24 12:50 05/17/24 12:25 37.1 C 73 18 140/61 96 05/17/24 10:00 05/17/24 08:00 36.9 C 05/17/24 07:45 38.1 C H 76 18 133/67 100 05/17/24 07:30 74 05/17/24 03:29 37.7 C H 96 H 18 155/75 H 97 O2 Del Method O2 Flow Rate 05/17/24 14:44 Oxymask 2 05/17/24 14:02 05/17/24 12:50 Oxymask 2 05/17/24 12:25 Oxymask 2 05/17/24 10:00 Oxymask 2 05/17/24 08:00 05/17/24 07:45 Oxymask 2 05/17/24 07:30 05/17/24 03:29 Oxymask 2 Laboratory Results Laboratory Results - last 24 hr 05/16/24 05/16/24 05/17/24 14:15 17:56 00:15 Heparin Anti-Xa, Unfract 0.19 L Sodium 146 H Potassium 3.4 L Chloride 113 H Carbon Dioxide 24 Anion Gap 9 BUN 43 H Creatinine 0.76 Est Cr Clr Drug Dosing 61.3 eGFR 76.74 BUN/Creatinine Ratio 56.6 H Glucose 140 H POC Glucose 85 Calcium 8.9 Magnesium 2.1 SARS-CoV-2 (PCR) NEGATIVE 05/17/24 05/17/24 05/17/24 02:15 08:37 12:18 WBC 17.99 H RBC 3.77 L Hgb 10.7 L Hct 33.9 L MCV 89.9 MCH 28.4 MCHC 31.6 L RDW Std Deviation 51.8 H RDW Coeff of Aparna 15.8 H Plt Count 211 MPV 12.0 Immature Gran % (Auto) 0.7 Neut % (Auto) 84.8 Lymph % (Auto) 8.4 [place] % (Auto) 5.8 Eos % (Auto) 0.1 Baso % (Auto) 0.2 Neut # (Auto) 15.24 H Lymph # (Auto) 1.52 [place] # (Auto) 1.05 H Eos # (Auto) 0.02 Baso # (Auto) 0.03 Immature Gran # (Auto) 0.13 Heparin Anti-Xa, Unfract 0.40 0.23 L Sodium 144 Potassium 3.0 L Chloride 113 H Carbon Dioxide 24 Anion Gap 7 BUN 32 H Creatinine 0.65 Est Cr Clr Drug Dosing 72.1 eGFR 86.23 BUN/Creatinine Ratio 49.2 H Glucose 147 H POC Glucose 143 H Calcium 8.5 L Magnesium 1.8 Total Bilirubin 0.5 AST 48 H ALT 123 H Alkaline Phosphatase 77 Total Protein 5.5 L Albumin 2.9 L Globulin 2.6 Albumin/Globulin Ratio 1.1 Diagnostic Findings Microbiology 05/15/24 00:40 Blood Aerobic Blood Culture - Preliminary Yeast not Evita albicans/dub 05/15/24 00:40 Blood Anaerobic Blood Culture - Preliminary Yeast 05/16/24 17:56 Blood Fungal Smear - Final 05/15/24 00:40 Blood Aerobic Blood Culture - Preliminary Yeast 05/15/24 00:40 Blood Anaerobic Blood Culture - Preliminary Yeast 05/15/24 03:30 Urine,Indwelling Cath Urine Culture - Final No growth - less than 1,000 colonies/mL. PG Care Time/CCT Total # of Minutes Spent Total Time Spent with Patient: Total time spent is greater than 50% in coordination of care (as documented) at patient's floor/unit and/or counseling patient: Coding Level of Care Code 15748 SUB INP/OBS CARE 3/50MIN Diagnoses Fungemia B49 Septic shock A41.9; R65.21 Acute respiratory failure with hypoxia J96.01 Aspiration into lower respiratory tract T17.800A UTI due to extended-spectrum beta lactamase (ESBL) producing Escherichia coli N39.0; B96.29; Z16.12 Supratherapeutic INR R79.1 Hypernatremia E87.0 Recurrent deep vein thrombosis (DVT) I82.409 Acute kidney injury N17.9 Acute metabolic encephalopathy G93.41 Multiple sclerosis G35 Coffee ground emesis K92.0 Paraplegia G82.20 Dementia F03.90 Elevated LFTs R79.89 Elevated troponin R79.89
[2024-05-17] MEDS: MoRPHine SULFATE 2 MG/ML CARP IV PRN (16:31)
[2024-05-17] MEDS: OPTIRAY 320 100ml IV ONE (17:31)
[2024-05-17] MEDS: D5W AND 1/2NSS + 20MEQ KCL 20 MEQ/1,000 ML BAG IV SCH (17:50)
--- NOTE | 2024-05-17 18:02 | CT Scan Report ---
CT OF THE ABDOMEN AND PELVIS WITH CONTRAST CLINICAL HISTORY: fungemia, source uncertain; eval intra-abd path COMPARISON STUDY: CT of the abdomen and pelvis February 22, 2024. TECHNIQUE: Following IV administration of 94 mL of Optiray, axial images of the abdomen and pelvis we re obtained from the lung bases to the proximal femurs. Images were reviewed in the axial, sagittal, and coronal planes. IV contrast was administered without complication. Automated exposure control wa s utilized for the study. A dose lowering technique was utilized adhering to the principles of ALARA . CT DOSE: 1741.22 mGy.cm FINDINGS: Visualized portions of the lung bases demonstrate trace bilateral pleural effusions. Subple ural opacities within the lower lobes and lingula are present. The heart is mildly enlarged. No pneum atosis, free air or portal venous gas is present. There is a small hiatal hernia. There is hepatic st eatosis. No hepatic lesions are present. The gallbladder is mildly distended. There are layering gall stones within the gallbladder. There is no pericholecystic infiltration. Spleen, adrenal glands and p ancreas are unremarkable. There is marked bilateral renal atrophy. Left upper pole renal cyst is pres ent. A few subcentimeter renal lesions are too small to characterize. There is no hydronephrosis. The re is no evidence for a bowel obstruction. Colonic diverticulosis without evidence for acute divertic ulitis. A large amount of poorly formed stool within the rectum is noted. Distention of the rectum an d distal sigmoid colon is noted. There is no evidence for a bowel obstruction. Mild presacral strandi ng is similar to prior exam. Laxity of the anterior abdominal wall is again noted. A [place] balloon an d gas within the bladder present. Mild body wall edema. No fluid collections within the abdomen or pe lvis. IMPRESSION: 1. Trace bilateral pleural effusions with bilateral lower lobe and lingular airspace opacities, parti ally imaged on this exam. The findings could reflect atelectasis, pneumonia or aspiration pneumonitis . 2. Large amount of poorly formed stool within the rectum. Distention of the distal sigmoid colon and rectum, similar to prior exams. This is likely chronic. No evidence for a bowel obstruction. No bowel wall thickening. 3. Colonic diverticulosis. No evidence for acute diverticulitis. 4. Cholelithiasis with mild gallbladder distention. No convincing evidence for acute cholecystitis. ACT 112: Negative or not required by law. Electronically signed by: Naga Genao M.D. 05/17/2024 5:59 PM
[2024-05-17 18:41] LABS: ANTI-Xa, UFH(UnfractionatedHep 0.24 IU/ml (0.3-0.7)
[2024-05-18 01:32] LABS: Hematocrit (blood only) 31.2 % (37.0-47.0); Hemoglobin 9.7 g/dl (12.0-16.0); Mean Corpuscular Hemoglobin 28.3 pg (25.0-34.0); Mean Corpuscular Hgb Conc 31.1 g/dL (32.0-36.0); Platelet Count 189 K/uL (130-400); RDW Coefficient of Variation 15.7 % (11.5-14.5); RDW Standard Deviation 51.7 fL (36.4-46.3); Red Blood Count 3.43 M/uL (4.20-5.40)
[2024-05-18 01:39] LABS: BUN Creatinine Ratio 37.1 (10-20); Calcium 8.2 mg/dl (8.6-10.3); Creatinine Clr Calc Pharmacy 75.6 ml/min; Potassium 3.2 mmol/L (3.5-5.1)
[2024-05-18 01:55] LABS: ANTI-Xa, UFH(UnfractionatedHep 0.29 IU/ml (0.3-0.7)
[2024-05-18 08:53] LABS: ANTI-Xa, UFH(UnfractionatedHep 0.31 IU/ml (0.3-0.7)
[2024-05-18] MEDS: POTASSIUM CHLORIDE / WTR 10 MEQ/100 ML PLCT IV SCH (12:29)
[2024-05-18] MEDS: CASPOFUNGIN 50 MG in SODIUM CHLORIDE 0.9% 250 ML IV SCH (16:07)
--- NOTE | 2024-05-18 19:49 | Hospitalist Progress Note ---
Date of Service May 18, 2024 Assessment & Plan (1) Fungemia: Plan: all admission blood cx's + for yeast BioFire shows the yeast is evita glabrata the majority of c glabrata strains are diflucan resistant thus, is on caspofungin IV - day #3 of such dose adjusted today by our antimicrobial pharmacist ID/sensitivities of the yeast has been sent out to [facility] repeat fungal blood cx's obtained 05/16 - thus far negative source for her fungemia remains uncertain recent urine cx x 2 without yeast no skin breakdown per nursing CT abd/pelvis to r/o intra-abdominal fluid collection / other pathology that would lead to fungemia was negative she is immunocompromised due to her advanced dementia status, having multiple sclerosis, being on Copaxone, etc. [id number] the source is uncertain does have gallstones and mild gall bladder distension with her nonspecific c/o pain will obtain RUQ u/s - r/o brewing cholecystitis (2) Septic shock: Plan: source - lung (LLL pneumonia) yeast in blood also contributing but the source for the yeast is uncertain cont Meropenem IV for LLL pneumonia - day #4 of such cont Caspofungin IV for fungemia (see #1 above) - day #3 of such levophed weaned off 05/15/24 cortisol level >60; thus, deferred on IV hydrocortisone (3) Acute respiratory failure with hypoxia: Plan: 2nd to LLL pneumonia cont O2 support cont abx as above (4) Aspiration into lower respiratory tract: Plan: I spoke with the pt's son and he states she typically does not have any h/o dysphagia [id number] at HIGH risk of such due to her multiple sclerosis & dementia and current superimposed encephalopathy she is still too somnolent today to take anything by mouth - cont NPO status however, hopefully she will be more awake tomorrow and thus will obtain speech therapy consult 05/19 for bedside swallow eval (5) UTI due to extended-spectrum beta lactamase (ESBL) producing Escherichia coli: Plan: history of urine cx negative this admission, however (6) Supratherapeutic INR: Plan: INR 7.4 at peak resolved INR now <2 is on heparin drip for bridging purposes as she is at high risk of VTE (7) Hypernatremia: Plan: 2nd to volume contracted state s/p hypotonic fluids with improved/normalized Na level BMP am (8) Recurrent deep vein thrombosis (DVT): Plan: noted typically on coumadin 5mg daily for such INR supratherapeutic at 7.4 at time of admission now <2 s/p total of 10mg of vitamin K at time of admission due to coffee-ground emesis (by report) but no signs of any active GI bleeding since admission remains on heparin infusion (9) Acute kidney injury: Plan: Peak Cr 1.67 Cr now 0.6 resolved TATIANA was 2nd to septic shock (sepsis-associated ATN) BMP am (10) Acute metabolic encephalopathy: Plan: 2nd to septic shock, fungemia, LLL pneumonia, etc. ongoing severe marginal improvement last 24 hours - responding to name, but otherwise sleeping; occasionally c/o nonspecific pain (11) Multiple sclerosis: Plan: typically on gabapentin 600mg TID, Copaxone daily - all on hold (12) Coffee ground emesis: Plan: while being admitted had such, by report does have prior h/o esophagitis cont PPI bid IV H/H remain stable (13) Paraplegia: Plan: acquired, 2nd to MS? 2nd to dementia? by report is nonambulatory (14) Dementia: Plan: severe by report non-ambulatory DNR/DNI status spoke with pt's son Victoriano - she has some remote memory from her childhood, but short-term memory is non-existent (15) Elevated LFTs: Plan: 2nd to shock? other? repeat LFTs am for stability (16) Elevated troponin: Plan: peak HS troponin 155 this is likely 2nd to myocardial demand ischemia in the setting of septic shock Plan sonVictoriano, updated by phone on 05/16, 05/17 and again 05/18 ([phone]) I asked Victoriano about what to do about his mother's nutrition stated to him only option would be NG tube feedings he is agreeable to holding off on such and seeing how she does over the next couple of days prognosis is guarded hold off on formal ID consult -- would only involve them if she makes significant improvement if she fails to improve on global scale next couple of days would strongly recom mend palliative care consultation Admission and Anticipated Discharge Date Admission Date: May 15, 2024 Subjective tele overnight wnl patient now opening her eyes to her name being called I visited her 2x's today -- on first visit I asked her several basic questions; only 1x did she try to respond; what she tried to say was garbled 2nd visit -- asked her again basic questions -- she reports "pain" but can't tell me any details both visits she quickly closes her eyes and goes back to sleep staff report similar behavior - excessive sleeping, brief periods of being awake, telling staff she is in pain - but otherwise not being able to localize her pain or give any meaningful history had large loose stool earlier today Review of Systems Review of Systems: Unobtainable due to cognitive status Physical Exam Physical Exam: gen - laying in bed, severely altered, somnolent again but does briefly open her eyes today, tried to talk a couple of times but only with 1-word answers neck - no JVD mouth - MM still dry heart - RRR, s1 s2, no murmur lungs - decreased BS bases especially on left; no rales or wheezes; no increased work of breathing abd - soft NT ND BS+ ext - pulses 1-2+ b/l feet, no edema psych - a/o to person only, somnolent neuro - increased tone x 4 exts especially her arms Results & Data Results & Data Vital Signs (Past 12 Hours) Vital Signs Temp Pulse Pulse Resp BP Pulse Ox O2 Del Method 05/18/24 16:29 66 05/18/24 11:59 37.0 C 70 18 133/70 95 Oxymask 05/18/24 08:00 Oxymask 05/18/24 07:58 37.3 C 82 18 145/68 H 92 Oxymask O2 Flow Rate 05/18/24 16:29 05/18/24 11:59 2 05/18/24 08:00 2 05/18/24 07:58 2 Laboratory Results Laboratory Results - last 24 hr 05/15/24 05/18/24 05/18/24 00:40 00:27 01:06 WBC 12.40 H RBC 3.43 L Hgb 9.7 L Hct 31.2 L MCV 91.0 MCH 28.3 MCHC 31.1 L RDW Std Deviation 51.7 H RDW Coeff of Aparna 15.7 H Plt Count 189 MPV 12.0 Heparin Anti-Xa, Unfract 0.29 L Sodium 141 Potassium 3.2 L Chloride 111 H Carbon Dioxide 26 Anion Gap 4 BUN 23 Creatinine 0.62 Est Cr Clr Drug Dosing 75.6 eGFR 87.21 BUN/Creatinine Ratio 37.1 H Glucose 103 H POC Glucose 93 Calcium 8.2 L Misc Micro Test Pending Crossmatch See Detail 05/18/24 05/18/24 05/18/24 06:06 08:05 12:11 WBC RBC Hgb Hct MCV MCH MCHC RDW Std Deviation RDW Coeff of Aparna Plt Count MPV Heparin Anti-Xa, Unfract 0.31 Sodium Potassium Chloride Carbon Dioxide Anion Gap BUN Creatinine Est Cr Clr Drug Dosing eGFR BUN/Creatinine Ratio Glucose POC Glucose 91 112 H Calcium Misc Micro Test Crossmatch 05/18/24 17:08 WBC RBC Hgb Hct MCV MCH MCHC RDW Std Deviation RDW Coeff of Aparna Plt Count MPV Heparin Anti-Xa, Unfract Sodium Potassium Chloride Carbon Dioxide Anion Gap BUN Creatinine Est Cr Clr Drug Dosing eGFR BUN/Creatinine Ratio Glucose POC Glucose 86 Calcium Misc Micro Test Crossmatch Diagnostic Findings Microbiology 05/15/24 00:40 Blood Aerobic Blood Culture - Preliminary Yeast not Evita albicans/dub 05/15/24 00:40 Blood Anaerobic Blood Culture - Preliminary Yeast not Evita albicans/dub 05/15/24 00:40 Blood Aerobic Blood Culture - Preliminary Yeast not Evita albicans/dub 05/15/24 00:40 Blood Anaerobic Blood Culture - Preliminary Yeast not Evita albicans/dub 05/16/24 17:56 Blood Fungal Smear - Final 05/15/24 03:30 Urine,Indwelling Cath Urine Culture - Final No growth - less than 1,000 colonies/mL. [id number] PG Care Time/CCT Total # of Minutes Spent Total Time Spent with Patient: Total time spent is greater than 50% in coordination of care (as documented) at patient's floor/unit and/or counseling patient: Coding Level of Care Code 28553 SUB INP/OBS CARE 3/50MIN Diagnoses Fungemia B49 Septic shock A41.9; R65.21 Acute respiratory failure with hypoxia J96.01 Aspiration into lower respiratory tract T17.800A UTI due to extended-spectrum beta lactamase (ESBL) producing Escherichia coli N39.0; B96.29; Z16.12 Supratherapeutic INR R79.1 Hypernatremia E87.0 Recurrent deep vein thrombosis (DVT) I82.409 Acute kidney injury N17.9 Acute metabolic encephalopathy G93.41 Multiple sclerosis G35 Coffee ground emesis K92.0 Paraplegia G82.20 Dementia F03.90 Elevated LFTs R79.89 Elevated troponin R79.89
[2024-05-18] MEDS ORDERED: Nursing to Pharmacy Communication SCH (22:00)
[2024-05-18 23:53] LABS: Cdiff Antigen Positive; Cdiff Toxin A+B Negative Cdiff Toxin (Negative); Cdiff Toxin B Gene (2yr or >) Positive Cdiff Gene (Neg)
[2024-05-19 08:56] LABS: Hematocrit (blood only) 30.4 % (37.0-47.0); Hemoglobin 9.7 g/dl (12.0-16.0); Mean Corpuscular Hemoglobin 28.4 pg (25.0-34.0); Mean Corpuscular Hgb Conc 31.9 g/dL (32.0-36.0); Mean Corpuscular Volume 88.9 fL (80.0-100.0); Mean Platelet Volume 11.7 fL (9.4-12.4); Platelet Count 182 K/uL (130-400); RDW Coefficient of Variation 15.3 % (11.5-14.5); RDW Standard Deviation 50.2 fL (36.4-46.3); Red Blood Count 3.42 M/uL (4.20-5.40)
--- NOTE | 2024-05-19 09:00 | Ultrasound Report ---
US gallbladder CLINICAL HISTORY: sepsis, fungemia, gallstones; r/o cholecystitis TECHNIQUE: Multiple real-time sonographic images of the right upper quadrant were obtained. Comparison: Comparison is made to CT abdomen pelvis 05/17/2024 FINDINGS: The liver is diffusely echogenic in appearance with poor ultrasound penetration, with normal contour, which is consistent with fatty infiltration. No focal mass lesions are seen. No intrahepatic duct al dilatation is seen. Linear hyperechoic foci with posterior shadowing are identified layering depe ndently within the gallbladder, which are consistent with gallstones. Gallbladder sludge is also seen . The gallbladder wall is not thickened. There is no pericholecystic fluid present. A sonographic Mu rphy's sign was not elicited by the [facility]. The common duct measures 0.4 cm in diameter at the level of the hepatic artery. The visualized portions of the pancreas appear normal. The right kidney shows normal echogenicity, cortical thickness and renal contour. The right kidney sh ows no evidence of hydronephrosis or mass. No ascites or free fluid is seen in Beasley's pouch. IMPRESSION: 1. No acute abnormalities and in particular no evidence of acute cholecystitis. 2. No evidence of acute cholecystitis. ACT 112: Negative or not required by law. Electronically signed by: Ted Armstrong M.D. 05/19/2024 8:58 AM
[2024-05-19 09:29] LABS: ANTI-Xa, UFH(UnfractionatedHep 0.36 IU/ml (0.3-0.7)
[2024-05-19 09:31] LABS: Alanine Aminotransferase 49 U/L (7-52); Albumin Level 2.4 gm/dl (3.4-5.0); Alkaline Phosphatase 82 U/L (34-104); Anion Gap 6 (3-11); Aspartate Aminotransferase 19 U/L (13-39); Bilirubin,Total 0.6 mg/dl (0.2-1.0); Blood Urea Nitrogen 9 mg/dl (6-23); Calcium 8.2 mg/dl (8.6-10.3); Carbon Dioxide 28 mmol/L (21-32); Chloride 104 mmol/L (98-107); Creatinine Clr Calc Pharmacy 95.6 ml/min; Glucose 92 mg/dl (70-99(Fasting)); Potassium 3.2 mmol/L (3.5-5.1); Sodium 138 mmol/L (136-145); Total Protein 4.9 gm/dl (6.0-8.3)
--- NOTE | 2024-05-19 16:08 | Hospitalist Progress Note ---
Date of Service May 19, 2024 Assessment & Plan (1) Fungemia: Plan: 83-year-old woman with severe dementia and paraplegia related to multiple sclerosis admitted with septic shock. Found to have high-grade candidemia. all admission blood cx's + for yeast BioFire shows the yeast is evita glabrata the majority of c glabrata strains are diflucan resistant thus, is on caspofungin IV - day #4 of such ID/sensitivities of the yeast has been sent out to [facility] repeat fungal blood cx's obtained 05/16 - remain negative to date source for her fungemia remains uncertain she does not have any central lines, or recent history of such that I am aware of TTE was normal without any valvular pathology, however, was a limited quality study recent urine cx x 2 without yeast no skin breakdown per nursing CT abd/pelvis was notable for esophageal thickening and colonic distention which are chronic findings, right upper quadrant ultrasound 05/18 with stones and sludge but no evidence of acute cholecystitis she is immunocompromised due to her advanced dementia status, having multiple sclerosis, being on Copaxone, etc. ophthalmologic exam would be ideal but may be extremely difficult to achieve. considered [facility] however unlikely to exchange mechanic since she would not be a candidate for valve surgery because of baseline severe dementia and extremely limited functional status will obtain ID consult if she continues to clinically improve (2) Septic shock: Plan: resolved levophed weaned off 05/15/24 cortisol level >60 (3) Acute respiratory failure with hypoxia: Plan: related to septic shock and left lower lobe pneumonia, on room air this afternoon (4) Aspiration into lower respiratory tract: Plan: more alert and cleared for diet 05/19 by speech therapist (5) UTI due to extended-spectrum beta lactamase (ESBL) producing Escherichia coli: Plan: history of urine cx negative this admission, however (6) Hypernatremia: Plan: related to volume depletion treated with IV fluids and resolved (7) Recurrent deep vein thrombosis (DVT): Plan: typically on coumadin 5mg daily for such INR supratherapeutic at 7.4 at time of admission 10mg of vitamin K at time of admission due to coffee-ground emesis continue anticoagulation but change heparin drip to enoxaparin (8) Acute kidney injury: Plan: Peak Cr 1.67, resolved Cr now 0.5 (9) Acute metabolic encephalopathy: Plan: 2nd to septic shock, fungemia, LLL pneumonia slowly improving (10) Multiple sclerosis: Plan: typically on gabapentin 600mg TID, Copaxone daily - all on hold (11) Coffee ground emesis: Plan: while being admitted had such, by report does have prior h/o esophagitis cont PPI bid IV H/H remain stable (12) Paraplegia: Plan: acquired, 2nd to MS? 2nd to dementia? by report is nonambulatory (13) Dementia: Plan: severe by report non-ambulatory DNR/DNI status spoke with pt's son Victoriano - she has some remote memory from her childhood, but short-term memory is non-existent (14) Elevated LFTs: Plan: ischemic hepatitis related to shock, resolved (15) Elevated troponin: Plan: peak HS troponin 155 this is likely 2nd to myocardial demand ischemia in the setting of septic shock Plan sonVictoriano, updated by phone on 05/16, 05/17 and again 05/18 ([phone]) prognosis is guarded hold off on formal ID consult -- would only involve them if she makes significant improvement if she fails to improve on global scale next couple of days would strongly recommend palliative care consultation Admission and Anticipated Discharge Date Admission Date: May 15, 2024 Subjective mental status seems a little bit improved says a few short phrases endorses pain and says its her hips Physical Exam 2 Physical Exam: PHYSICAL EXAMINATION Last 24h vital signs reviewed, see documentation in flowsheet General: ill-appearing, awake HEENT: Normocephalic, atraumatic, pupils round and equal, sclerae anicteric, no conjunctival injection, dry mucus membranes Lungs: Normal respiratory effort. Clear to auscultation bilaterally. No RRW Heart: Regular rate and rhythm, no murmurs. No JVD Abdomen: Soft, nontender, nondistended. Bowel sounds present. Extremities: acrocyanosis tips of fingers of right hand, radial pulse is strong, tips of fingers of left hand are well-perfused, bilateral woody 1+ lower extremity edema ulcers tips of great toes are dry with some crusting Neuro: Alert and confused not oriented to situation makes few statements brief phrases, left upper extremity is weak with high tone and some contraction of the fingers, both lower extremities are flaccid, right upper extremity with intact strength Results & Data Results & Data Vital Signs (Past 12 Hours) Vital Signs Temp Pulse Pulse Resp BP Pulse Ox O2 Del Method 05/19/24 15:43 37.5 C 78 18 128/71 93 Room Air 05/19/24 14:09 88 05/19/24 12:40 36.8 C 78 18 146/77 H 93 Oxymask 05/19/24 11:57 Oxymask 05/19/24 10:54 37.1 C 75 18 147/82 H 95 Oxymask 05/19/24 07:33 36.8 C 76 18 157/65 H 98 Oxymask 05/19/24 06:20 77 05/19/24 03:59 36.8 C 73 18 125/71 92 Oxymask O2 Flow Rate 05/19/24 15:43 05/19/24 14:09 05/19/24 12:40 2 05/19/24 11:57 2 05/19/24 10:54 2 05/19/24 07:33 05/19/24 06:20 05/19/24 03:59 Laboratory Results 05/19/24 08:31 05/19/24 08:31 PG Care Time/CCT Total # of Minutes Spent Total Time Spent with Patient: Total time spent is greater than 50% in coordination of care (as documented) at patient's floor/unit and/or counseling patient: Coding Level of Care Code 97363 SUB INP/OBS CARE 2/35MIN Diagnoses Fungemia B49 Septic shock A41.9; R65.21 Acute respiratory failure with hypoxia J96.01 Aspiration into lower respiratory tract T17.800A UTI due to extended-spectrum beta lactamase (ESBL) producing Escherichia coli N39.0; B96.29; Z16.12 Hypernatremia E87.0 Recurrent deep vein thrombosis (DVT) I82.409 Acute kidney injury N17.9 Acute metabolic encephalopathy G93.41 Multiple sclerosis G35 Coffee ground emesis K92.0 Paraplegia G82.20 Dementia F03.90 Elevated LFTs R79.89 Elevated troponin R79.89
[2024-05-19] MEDS ORDERED: ENOXAPARIN 1 MG/KG SC SCH (16:30)
[2024-05-19] MEDS: ENOXAPARIN 80 MG/0.8 ML SYR SQ SCH (17:12)
--- NOTE | 2024-05-20 16:46 | Infectious Disease Consult ---
Date of Consultation May 20, 2024 Assessment & Plan (1) Fungemia: (2) Dementia: (3) Multiple sclerosis: (4) Acute metabolic encephalopathy: (5) Septic shock: Plan This is an 83-year-old female with a past medical history of multiple sclerosis, esophagitis, trigeminal neuralgia of the left side of the face and left-sided weakness, esophageal reflux, A flutter with RVR, DVTs, ESBL UTIs, who was brought into the ED on 05/14/24 from her [facility] for altered mental status. She was recently treated for ESBL E. coli UTI with Macrobid in the [facility]. Noted to have worsening altered mental status throughout the day. She arrived to the ED via EMS febrile, hypotensive, tachycardic, hypoxic and minimally responsive: BP 73/51, pulse 140, RR 44, temp 39.4, O2 sats 82% on room air. She remained hypotensive despite aggressive fluid resuscitation. She was started on Levophed, vancomycin, Zosyn and admitted to the ICU. Labs: WBC 25.23, platelets 272, BUN 68, creatinine 1.26, lactate 3.3, procalcitonin 1.53. Urine 6-8 10 WBCs. Blood cultures positive for Jaja glabrata on bio [place]OL[place]: 10/23 bottles. Covid, RSv, Influenza PCR negative. Chest x- ray demonstrated peribronchial thickening compatible with infectious/inflammatory airway disease or viral pneumonia. No surya consolidation. Repeat Cx-ray showed a left basilar consolidation. CT abdomen pelvis showed a large amount of poorly formed stool within the rectum. Distention of the distal sigmoid colon and rectum which is chronic: Cholelithiasis without acute cholecystitis. Abdominal ultrasound with no acute abnormalities. Transthoracic cardiogram was a technically difficult study but no significant valvular abnormalities visualized. There patient is obtunded and cannot provide a history. There is no history of hardware, prosthetics. She has no central line/port. He has been started on caspofungin. Infectious disease consulted for fungemia. She is off pressors and her leukocytosis has resolved. Microbiology: Blood cultures 05/15/2024: Yeast not Jaja albicans/dub in 4/4 bottles, C andida glabrata on BC ID Urine culture 05/15/2024 no growth Fungal blood culture 05/16/2024 NGTD Antibiotics/antifungals: Vancomycin 05/14 Zosyn 05/14 Meropenem 04/2410/ Caspofungin 05/16ongoing # Septic shock, off pressors # Fungemia # Leukocytosis, improving # Encephalopathy # Acute hypoxic respiratory failure # Multiple sclerosis Discussion:Septic shock in the setting of fungemia of unknown etiology. She does not have an obvious source. No GI or pathology. Abdomen benign. CT abdomen without any acute findings. Urine culture with no significant growth. She has a history of esophagitis but no report of recent dysphagia or issues swallowing. I cannot fully evaluate her oropharynx given her mental status. No rash or skin abnormalities concerning for candidiasis. No hardware/prosthetics. No central lines. Recommendation: Continue Caspofungin 50 mg Iv daily. If repeat Blood culture positive would increase to endocarditis dosin mg Iv daily May need KIRIT once clinically stable Would treat for 2 weeks if no endocarditis or persistent fungemia Will repeat routine blood cultures. At this time the only repeat cultures include specific fungal cultures If mental status does not improve, consider head/brain imaging She will need an ophthalmologic exam in outpatient D/w team Thank you for this consult. ID will continue to follow Alok Elliott MD, MPH Infectious Disease [facility], [facility] Call [phone] with questions Consultation Information Consultation was provided via telemedicine using two-way real-time interactive telecommunication between the patient and the telemedicine provider. For the duration of the visit, the provider was performing the assessment from a different facility than the patient. This includesuse of bluetooth stethoscope forauscultationperformed by the telepresenter that the telemedicine provider can hear if described in the physical exam. Purchasing Department Clerk contact information: Please call [facility] Call Center . (Phone Number For Physician Use Only) After establishing a telemedicine visit, patient was: Patient was verified with two unique identifiers Time Spent with Patient: Initial => 75 min History of Present Illness Reason for Consultation: Fungemia Requesting Physician: Noemy Rubio MD Attending Physician: Noemy Rubio MD History of Present Illness This is an 83-year-old female with a past medical history of multiple sclerosis, esophagitis, trigeminal neuralgia of the left side of the face and left-sided weakness, esophageal reflux, A flutter with RVR, DVTs, ESBL UTIs, who was brought into the ED on 05/14/24 from her [facility] for altered mental status. She was recently treated for ESBL E. coli UTI with Macrobid in the [facility]. Noted to have worsening altered mental status throughout the day. She arrived to the ED via EMS febrile, hypotensive, tachycardic, hypoxic and minimally responsive: BP 73/51, pulse 140, RR 44, temp 39.4, O2 sats 82% on room air. She remained hypotensive despite aggressive fluid resuscitation. She was started on Levophed, vancomycin, Zosyn and admitted to the ICU. Labs: WBC 25.23, platelets 272, BUN 68, creatinine 1.26, lactate 3.3, procalcitonin 1.53. Urine 6-8 10 WBCs. Blood cultures positive for Jaja glabrata on [employer] fire: 10/23 bottles. Covid, RSv, Influenza PCR negative. Chest x- ray demonstrated peribronchial thickening compatible with infectious/inflamma tory airway disease or viral pneumonia. No surya consolidation. Repeat Cx-ray showed a left basilar consolidation. CT abdomen pelvis showed a large amount of poorly formed stool within the rectum. Distention of the distal sigmoid colon and rectum which is chronic: Cholelithiasis without acute cholecystitis. Abdominal ultrasound with no acute abnormalities. Transthoracic cardiogram was a technically difficult study but no significant valvular abnormalities visualized. There patient is obtunded and cannot provide a history. There is no history of hardware, prosthetics. She has no central line/port. He has been started on caspofungin. Infectious disease consulted for fungemia. She is off pressors and her leukocytosis has resolved. Allergies Allergy/AdvReac Type Severity Reaction Status Date / Time levofloxacin [From Levaquin] Allergy Unknown Unknown Verified 02/23/24 02:49 promethazine Allergy Unknown Verified 02/23/24 02:49 Home Medications Medication Instructions Recorded Confirmed Type Saccharomyces boulardii 250 mg 250 mg PO BID 02/23/24 05/15/24 History capsule (Florastor) acetaminophen 325 mg tablet 650 mg PO Q6 PRN Fever Or Pain 02/23/24 05/15/24 History (Tylenol) ascorbic acid (vitamin C) 1,000 mg 1 g PO AMHS 02/23/24 05/15/24 History tablet (Vitamin C) bisacodyl 10 mg rectal suppository 10 mg OH HS 02/23/24 05/15/24 History cholecalciferol (vitamin D3) 25 25 mcg PO QAM 02/23/24 05/15/24 History mcg (1,000 unit) tablet (Vitamin D3) citalopram 10 mg tablet 10 mg PO DAILY 02/23/24 05/15/24 History cyanocobalamin (vitamin B-12) 1,000 mcg PO QAM 02/23/24 05/15/24 History 1,000 mcg tablet (Vitamin B-12) gabapentin 600 mg tablet 600 mg PO TID 02/23/24 05/15/24 History glatiramer 20 mg/mL subcutaneous 20 mg subcut QAM 02/23/24 05/15/24 History syringe (Copaxone) lip protective (padimate o) 1 ea topical QPM 02/23/24 05/15/24 History methenamine hippurate 1 gram tablet 1 g PO BID 02/23/24 05/15/24 History metoprolol tartrate 25 mg tablet 25 mg PO BID 02/23/24 05/15/24 History multivitamin 1 tab PO QAM 02/23/24 05/15/24 History ondansetron HCl 4 mg tablet 4 mg PO Q8 PRN Nausea 02/23/24 05/15/24 History pantoprazole 40 mg tablet,delayed 40 mg PO QAM 02/23/24 05/15/24 History release polyethylene glycol 3350 17 gram 17 g PO QAM 02/23/24 05/15/24 History oral powder packet (Miralax) potassium chloride 10 mEq 20 meq PO TID 02/23/24 05/15/24 History tablet,extended release sennosides 8.6 mg-docusate sodium 1 tab-cap PO AMHS 02/23/24 05/15/24 History 50 mg tablet (Senokot-S) tramadol 50 mg tablet 100 mg PO TID 02/23/24 05/15/24 History warfarin 5 mg tablet 5 mg PO QPM 02/23/24 05/15/24 History Patient History Medical History Hypokalemia Depression Neurogenic bladder disorder Esophageal reflux History of depression Hx of decubitus ulcer History of closed head injury Hypoglycemia Necrotizing fasciitis Leukocytosis Endotracheally intubated Admitted to intensive care unit Encounter for pre-operative examination Abscess or cellulitis of chest wall Sepsis Catheter-associated urinary tract infection Sepsis Atrial flutter with rapid ventricular response Altered mental status DVT (deep venous thrombosis) Orion grade C esophagitis Esophagitis Thank you for allowing us to participate in the care of this patient. If you should have any further questions or concerns, don't hesitate to contact us at extension [phone] or [phone]. Esophagitis Urinary retention Constipation Fever Abnormal urinalysis SVT (supraventricular tachycardia) Paraplegia Lymphedema of left leg History of multiple sclerosis Multiple sclerosis Left-sided weakness Trigeminal neuralgia of left side of face Surgical History History of craniotomy History of incision and drainage (01/19/22) Left Breast and Chest Wall Incision Drainage and Debridement including soft tissue including muscle greater than 50cm squared(Left) - Hair Mcknight DO, FACS Family History Other Family history non-contributory Social History Smoking Status: Unknown if ever smoked Hx Alcohol Use: No Hx Substance Use: No Preferred Language: Portuguese Communication Ability: Impaired Communication Ability Comment: patient was able to answer yes or no questions Barrel Header Required: No Beliefs That Will Affect Care: Bahai Bahai Beliefs: holiness marital status: Current Living Situation: [facility] Current Living Situation Comment: Home Health Feels Safe at Home: Yes Assistive Devices: Wheelchair Review of System Unable to obtain 2/2 mental status Physical Exam Physical Exam: Gen- Obtunded Neck- supple HEENT-anicteric sclera, can not fully exam mouth 2/2 MS Lungs- No increased wob Abd- soft, not distended, not tender Ext- mild edema BL Neuro-Obtunded Skin- no lesions,wounds Lines- No central lines Results & Data Vital Signs (Past 12 Hours) Vital Signs Temp Pulse Pulse Resp BP Pulse Ox O2 Del Method 05/20/24 15:59 36.9 C 83 18 133/67 92 Room Air 05/20/24 14:49 67 05/20/24 11:25 36.7 C 75 16 145/76 H 94 Room Air 05/20/24 09:00 Room Air 05/20/24 07:51 36.6 C 67 16 146/74 H 93 Room Air 05/20/24 07:20 62 Laboratory Results Laboratory Results - last 48 hr 05/18/24 05/18/24 05/19/24 17:08 22:20 00:33 WBC RBC Hgb Hct MCV MCH MCHC RDW Std Deviation RDW Coeff of Aparna Plt Count MPV Heparin Anti-Xa, Unfract Sodium Potassium Chloride Carbon Dioxide Anion Gap BUN Creatinine Est Cr Clr Drug Dosing eGFR BUN/Creatinine Ratio Glucose POC Glucose 86 79 Calcium Total Bilirubin Direct Bilirubin AST ALT Alkaline Phosphatase Total Protein Albumin Stl C. diff Tox B Gene Positive Cdiff Gene H Stl C.difficile Tox A&B Negative Cdiff Toxin 05/19/24 05/19/24 05/19/24 06:30 08:31 12:25 WBC 9.80 RBC 3.42 L Hgb 9.7 L Hct 30.4 L MCV 88.9 MCH 28.4 MCHC 31.9 L RDW Std Deviation 50.2 H RDW Coeff of Aparna 15.3 H Plt Count 182 MPV 11.7 Heparin Anti-Xa, Unfract 0.36 Sodium 138 Potassium 3.2 L Chloride 104 Carbon Dioxide 28 Anion Gap 6 BUN 9 Creatinine 0.50 L Est Cr Clr Drug Dosing 95.6 eGFR 91.86 BUN/Creatinine Ratio 18.0 Glucose 92 POC Glucose 80 77 Calcium 8.2 L Total Bilirubin 0.6 Direct Bilirubin TNP AST 19 ALT 49 Alkaline Phosphatase 82 Total Protein 4.9 L Albumin 2.4 L Stl C. diff Tox B Gene Stl C.difficile Tox A&B 05/19/24 20:23 WBC RBC Hgb Hct MCV MCH MCHC RDW Std Deviation RDW Coeff of Aparna Plt Count MPV Heparin Anti-Xa, Unfract Sodium Potassium Chloride Carbon Dioxide Anion Gap BUN Creatinine Est Cr Clr Drug Dosing eGFR BUN/Creatinine Ratio Glucose POC Glucose 103 H Calcium Total Bilirubin Direct Bilirubin AST ALT Alkaline Phosphatase Total Protein Albumin Stl C. diff Tox B Gene Stl C.difficile Tox A&B Diagnostic Findings Abdomen/Pelvis CT 05/17/24 15:19 CT OF THE ABDOMEN AND PELVIS WITH CONTRAST CLINICAL HISTORY: fungemia, source uncertain; eval intra-abd path COMPARISON STUDY: CT of the abdomen and pelvis February 22, 2024. TECHNIQUE: Following IV administration of 94 mL of Optiray, axial images of the abdomen and pelvis were obtained from the lung bases to the proximal femurs. Images were reviewed in the axial, sagittal, and coronal planes. IV contrast was administered without complication. Automated exposure control was utilized for the study. A dose lowering technique was utilized adhering to the principles of ALARA. CT DOSE: 1741.22 mGy.cm FINDINGS: Visualized portions of the lung bases demonstrate trace bilateral pleural effusions. Subpleural opacities within the lower lobes and lingula are present. The heart is mildly enlarged. No pneumatosis, free air or portal venous gas is present. There is a small hiatal hernia. There is hepatic steatosis. No hepatic lesions are present. The gallbladder is mildly distended. There are layering gallstones within the gallbladder. There is no pericholecystic infiltration. Spleen, adrenal glands and pancreas are unremarkable. There is marked bilateral renal atrophy. Left upper pole renal cyst is present. A few subcentimeter renal lesions are too small to characterize. There is no hydronephrosis. There is no evidence for a bowel obstruction. Colonic diverticulosis without evidence for acute diverticulitis. A large amount of poorly formed stool within the rectum is noted. Distention of the rectum and distal sigmoid colon is noted. There is no evidence for a bowel obstruction. Mild presacral stranding is similar to prior exam. Laxity of the anterior abdominal wall is again noted. A [place] balloon and gas within the bladder present. Mild body wall edema. No fluid collections within the abdomen or pelvis. IMPRESSION: 1. Trace bilateral pleural effusions with bilateral lower lobe and lingular airspace opacities, partially imaged on this exam. The findings could reflect atelectasis, pneumonia or aspiration pneumonitis. 2. Large amount of poorly formed stool within the rectum. Distention of the distal sigmoid colon and rectum, similar to prior exams. This is likely chronic. No evidence for a bowel obstruction. No bowel wall thickening. 3. Colonic diverticulosis. No evidence for acute diverticulitis. 4. Cholelithiasis with mild gallbladder distention. No convincing evidence for acute cholecystitis. ACT 112: Negative or not required by law. Electronically signed by: Naga Genao M.D. 05/17/2024 5:59 PM Gallbladder Ultrasound 05/19/24 00:00 US gallbladder CLINICAL HISTORY: sepsis, fungemia, gallstones; r/o cholecystitis TECHNIQUE: Multiple real-time sonographic images of the right upper quadrant were obtained. Comparison: Comparison is made to CT abdomen pelvis 05/17/2024 FINDINGS: The liver is diffusely echogenic in appearance with poor ultrasound penetration, with normal contour, which is consistent with fatty infiltration. No focal mass lesions are seen. No intrahepatic ductal dilatation is seen. Linear hyperechoic foci with posterior shadowing are identified layering dependently within the gallbladder, which are consistent with gallstones. Gallbladder sludge is also seen. The gallbladder wall is not thickened. There is no pericholecystic fluid present. A sonographic Eller's sign was not elicited by the cylinder inspector. The common duct measures 0.4 cm in diameter at the level of the hepatic artery. The visualized portions of the pancreas appear normal. The right kidney shows normal echogenicity, cortical thickness and renal contour. The right kidney shows no evidence of hydronephrosis or mass. No ascites or free fluid is seen in Beasley's pouch. IMPRESSION: 1. No acute abnormalities and in particular no evidence of acute cholecystitis. 2. No evidence of acute cholecystitis. ACT 112: Negative or not required by law. Electronically signed by: Ted rAmstrong M.D. 05/19/2024 8:58 AM Microbiology 05/15/24 00:40 Blood Aerobic Blood Culture - Preliminary Yeast not Jaja albicans/dub 05/15/24 00:40 Blood Anaerobic Blood Culture - Preliminary Yeast not Jaja albicans/dub 05/15/24 00:40 Blood Aerobic Blood Culture - Preliminary Yeast not Jaja albicans/dub 05/15/24 00:40 Blood Anaerobic Blood Culture - Preliminary Yeast not Jaja albicans/dub 05/16/24 17:56 Blood Fungal Smear - Final 05/15/24 03:30 Urine,Indwelling Cath Urine Culture - Final No growth - less than 1,000 colonies/mL. Medications Administered Home Medications Medication Instructions Recorded Confirmed Last Taken Saccharomyces boulardii 250 mg 250 mg PO BID 02/23/24 05/15/24 05/14/24 16:30 capsule (Florastor) acetaminophen 325 mg tablet 650 mg PO Q6 PRN Fever Or Pain 02/23/24 05/15/24 Unknown (Tylenol) ascorbic acid (vitamin C) 1,000 mg 1 g PO AMHS 02/23/24 05/15/24 05/14/24 20:30 tablet (Vitamin C) bisacodyl 10 mg rectal suppository 10 mg OH HS 02/23/24 05/15/24 05/14/24 20:30 cholecalciferol (vitamin D3) 25 25 mcg PO QAM 02/23/24 05/15/24 05/14/24 08:30 mcg (1,000 unit) tablet (Vitamin D3) citalopram 10 mg tablet 10 mg PO DAILY 02/23/24 05/15/24 05/14/24 08:30 cyanocobalamin (vitamin B-12) 1,000 mcg PO QAM 02/23/24 05/15/24 05/14/24 08:30 1,000 mcg tablet (Vitamin B-12) gabapentin 600 mg tablet 600 mg PO TID 02/23/24 05/15/24 05/14/24 16:30 glatiramer 20 mg/mL subcutaneous 20 mg subcut QAM 02/23/24 05/15/24 05/14/24 08:30 syringe (Copaxone) lip protective (padimate o) 1 ea topical QPM 02/23/24 05/15/24 05/14/24 20:30 methenamine hippurate 1 gram tablet 1 g PO BID 02/23/24 05/15/24 05/14/24 16:30 metoprolol tartrate 25 mg tablet 25 mg PO BID 02/23/24 05/15/24 05/14/24 20:30 multivitamin 1 tab PO QAM 02/23/24 05/15/24 05/14/24 08:30 ondansetron HCl 4 mg tablet 4 mg PO Q8 PRN Nausea 02/23/24 05/15/24 Unknown pantoprazole 40 mg tablet,delayed 40 mg PO QAM 02/23/24 05/15/24 05/14/24 08:30 release polyethylene glycol 3350 17 gram 17 g PO QAM 02/23/24 05/15/24 05/14/24 08:30 oral powder packet (Miralax) potassium chloride 10 mEq 20 meq PO TID 02/23/24 05/15/24 05/14/24 16:30 tablet,extended release sennosides 8.6 mg-docusate sodium 1 tab-cap PO AMHS 02/23/24 05/15/24 05/14/24 20:30 50 mg tablet (Senokot-S) tramadol 50 mg tablet 100 mg PO TID 02/23/24 05/15/24 05/14/24 16:30 warfarin 5 mg tablet 5 mg PO QPM 02/23/24 05/15/24 05/14/24 20:30 Active Medications Generic Name Dose Route Start Last Admin Trade Name Freq PRN Reason Stop Dose Admin Enoxaparin Sodium 80 mg 05/19/24 17:00 05/20/24 16:32 Enoxaparin 80 Mg/0.8 Ml Syr SQ 06/18/24 16:59 80 mg Q12H JAVID Administration Pantoprazole Sodium 40 mg in 10 mls @ 5 mls/min 05/15/24 09:00 05/20/24 08:51 Protonix IV 06/14/24 08:59 5 mls/min BID JAVID Administration Meropenem 1,000 mg/ Sodium 100 mls @ 33.333 mls/hr 05/15/24 12:00 05/20/24 14:23 Chloride IV 05/25/24 11:59 Infused Q8H JAVID Infusion Protocol Caspofungin 50 mg/ Sodium 260 mls @ 260 mls/hr 05/18/24 12:00 05/20/24 10:00 Chloride IV 06/17/24 11:59 Infused DAILY JAVID Infusion Morphine Sulfate 2 mg 05/17/24 15:43 05/18/24 21:40 Morphine Sulfate 2 Mg/Ml Carp IV 05/31/24 15:42 2 mg Q4H PRN Administration Pain
[2024-05-20] MEDS ORDERED: ACETAMINOPHEN 325 MG TAB PO PRN (17:30)
--- NOTE | 2024-05-20 17:32 | Hospitalist Progress Note ---
Date of Service May 20, 2024 Assessment & Plan (1) Fungemia: Plan: 83-year-old woman with severe dementia and paraplegia related to multiple sclerosis admitted with septic shock. Found to have high-grade candidemia. all admission blood cx's + for yeast, C. glabrata by molecular assay the majority of c glabrata strains are diflucan resistant ID/sensitivities of the yeast has been sent out to [place] -continue caspofungin, day 5 repeat fungal blood cx's obtained 05/16 - remain negative to date source for her fungemia remains uncertain she does not have any central lines, or recent history of such that I am aware of TTE was normal without any valvular pathology, however, was a limited quality study recent urine cx x 2 without yeast no skin breakdown per nursing CT abd/pelvis was notable for esophageal thickening and colonic distention which are chronic findings, right upper quadrant ultrasound 05/18 with stones and sludge but no evidence of acute cholecystitis she is immunocompromised due to her advanced dementia status, having multiple sclerosis, being on Copaxone, etc. ophthalmologic exam would be ideal but may be extremely difficult to achieve. consulted ID - discussed with Dr. Elliott. consider KIRIT would be useful in that it could clarify duration of treatment (ie 2 weeks vs 6 weeks for endocarditis) (2) Acute metabolic encephalopathy: Plan: 2nd to septic shock, fungemia, LLL pneumonia severe hypoactive delirium slowly improving (3) Recurrent deep vein thrombosis (DVT): Plan: typically on coumadin 5mg daily, INR supratherapeutic at 7.4 at time of admission 10mg of vitamin K at time of admission due to coffee-ground emesis continue therapeutic enoxaparin (4) Multiple sclerosis: Plan: typically on gabapentin 600mg TID, Copaxone daily - all on hold (5) Coffee ground emesis: Plan: while being admitted had such, by report does have prior h/o esophagitis no evidence of acute bleeding -change PPI to oral (6) Paraplegia: Plan: acquired, 2nd to MS? 2nd to dementia? by report is nonambulatory (7) Dementia: Plan: severe by report non-ambulatory DNR/DNI status spoke with pt's son Victoriano - she has some remote memory from her childhood, but short-term memory is non-existent Plan septic shock requiring pressors on admission, resolved hypernatremia - resolved Hx ESBL UTI aspiration - cleared for diet by ST starting 05/19 troponin elevation - HS trop 150s, caused by myocardial demand ischemia from septic shock abnormal LFT - ischemic hepatitis related to shock, resolved TATIANA related to sepsis, resolved acute hypoxic respiratory failure related to sepsis and pneumonia, resolved sonVictoriano, left voicemail on 05/20 ([phone]) prognosis is guarded if she fails to improve on global scale next couple of days would strongly recommend palliative care consultation Admission and Anticipated Discharge Date Admission Date: May 15, 2024 Subjective Remains lethargic and oriented to self only Woke up after some persistence I asked the name of her son and she said "which one?" then closed her eyes again Was cleared for a diet yesterday and at 100% of dinner Physical Exam 2 Physical Exam: PHYSICAL EXAMINATION Last 24h vital signs reviewed, see documentation in flowsheet General: lethargic, ill appearing HEENT: Normocephalic, atraumatic, pupils round and equal, sclerae anicteric, no conjunctival injection, dry mucus membranes Lungs: Normal respiratory effort. Clear to auscultation bilaterally. No RRW Heart: Regular rate and rhythm, no murmurs. No JVD Abdomen: Soft, nontender, nondistended. Bowel sounds present. Extremities: acrocyanosis tips of fingers of right hand - fingertips now warm, bilateral woody 1+ lower extremity edema ulcers tips of great toes are dry with some crusting Neuro: lethargic arousable with difficulty said one two-word phrase, left upper extremity is weak with high tone and some contraction of the fingers, both lower extremities are flaccid, right upper extremity with intact strength Results & Data Results & Data Vital Signs (Past 12 Hours) Vital Signs Temp Pulse Pulse Resp BP Pulse Ox O2 Del Method 05/20/24 15:59 36.9 C 83 18 133/67 92 Room Air 05/20/24 14:49 67 05/20/24 11:25 36.7 C 75 16 145/76 H 94 Room Air 05/20/24 09:00 Room Air 05/20/24 07:51 36.6 C 67 16 146/74 H 93 Room Air 05/20/24 07:20 62 Laboratory Results 05/19/24 08:31 05/19/24 08:31 PG Care Time/CCT Total # of Minutes Spent Total Time Spent with Patient: Total time spent is greater than 50% in coordination of care (as documented) at patient's floor/unit and/or counseling patient: Coding Level of Care Code 73921 SUB INP/OBS CARE MIN Diagnoses Fungemia B49 Acute metabolic encephalopathy G93.41 Recurrent deep vein thrombosis (DVT) I82.409 Multiple sclerosis G35 Coffee ground emesis K92.0 Paraplegia G82.20 Dementia F03.90
[2024-05-20] MEDS: traMADol HCL 50 MG TABLET PO SCH (20:26)
[2024-05-20] MEDS: bisacodyL 10 MG SUPP PR SCH (20:26)
[2024-05-21 06:53] LABS: Calcium 8.4 mg/dl (8.6-10.3); Creatinine Clr Calc Pharmacy 79.8 ml/min; Potassium 2.3 mmol/L (3.5-5.1)
[2024-05-21 07:27] LABS: Hematocrit (blood only) 30.8 % (37.0-47.0); Mean Corpuscular Hgb Conc 32.5 g/dL (32.0-36.0); Mean Corpuscular Volume 86.3 fL (80.0-100.0); Mean Platelet Volume 11.7 fL (9.4-12.4); Platelet Count 260 K/uL (130-400); RDW Coefficient of Variation 15.1 % (11.5-14.5); RDW Standard Deviation 47.4 fL (36.4-46.3); Red Blood Count 3.57 M/uL (4.20-5.40); White Blood Count 9.25 K/ul (4.8-10.8)
[2024-05-21 07:56] LABS: Magnesium 1.5 mg/dl (1.7-2.4)
[2024-05-21] MEDS: POTASSIUM CHLORIDE PWD 20 MEQ PACK PO SCH (08:59)
[2024-05-21] MEDS: MAGNESIUM SULFATE / D5W 1 GM/100 ML BAG IV SCH (09:00)
[2024-05-21] MEDS: CITALOPRAM 20 MG TAB PO SCH (09:00)
[2024-05-21] MEDS: POTASSIUM CHLORIDE / WTR 10 MEQ/100 ML PLCT IV SCH (09:00)
[2024-05-21] MEDS: PANTOprazole 40 MG TAB PO SCH ×2 (09:00→20:02)
--- NOTE | 2024-05-21 16:19 | Hospitalist Progress Note ---
Date of Service May 21, 2024 Assessment & Plan (1) Fungemia: Plan: 83-year-old woman with severe dementia and paraplegia related to multiple sclerosis admitted with septic shock. Found to have high-grade candidemia. all admission blood cx's + for yeast, C. glabrata by molecular assay the majority of c glabrata strains are diflucan resistant ID/sensitivities of the yeast has been sent out to [place] -continue caspofungin, day 6 repeat fungal blood cx's obtained 05/16, 05/21 - remain negative to date source for her fungemia is unknown she does not have any central lines, or recent history of such that I am aware of TTE was normal without any valvular pathology, however, was a limited quality study recent urine cx x 2 without yeast no skin breakdown per nursing CT abd/pelvis was notable for esophageal thickening and colonic distention which are chronic findings, right upper quadrant ultrasound 05/18 with stones and sludge but no evidence of acute cholecystitis she is immunocompromised due to her advanced dementia status, having multiple sclerosis, being on Copaxone, etc. ophthalmologic exam would be ideal but may be extremely difficult to achieve. consulted ID - discussed with Dr. Elliott. consider KIRIT would be useful in that it could clarify duration of treatment (ie 2 weeks vs 6 weeks for endocarditis) I updated her son Victoriano by phone last night. Joan continues to be severely ill she has become a little bit more alert and that she is now swallowing some food but prognosis is extremely guarded. He is not inclined to put her through invasive procedures such as KIRIT. for now we will continue current treatment but not plan to escalate care if she were to worsen or if she does not improve (2) Acute metabolic encephalopathy: Plan: 2nd to septic shock, fungemia, LLL pneumonia severe hypoactive delirium a little bit improved compared to earlier in the week and that she is now swallowing some foods, intermittently staying two-word phrases (3) Recurrent deep vein thrombosis (DVT): Plan: typically on coumadin 5mg daily, INR supratherapeutic at 7.4 at time of admission 10mg of vitamin K at time of admission due to coffee-ground emesis continue therapeutic enoxaparin (4) Multiple sclerosis: Plan: typically on gabapentin 600mg TID, Copaxone daily - all on hold (5) Coffee ground emesis: Plan: while being admitted had such, by report does have prior h/o esophagitis no evidence of acute bleeding - continue oral PPI (6) Paraplegia: Plan: acquired, presumably related to multiple sclerosis and dementia by report is nonambulatory (7) Dementia: Plan: severe by report non-ambulatory DNR/DNI status spoke with pt's son Victoriano - she has some remote memory from her childhood, but short-term memory is non-existent Plan severe hypokalemia on morning labs. Potassium 2.3. replaced with IV potassium as well as serial oral doses, rechecked this afternoon and improved to 3.6. Will repeat BMP in a.m. hypomagnesemia of 1.5, replaced with 2 g IV, recheck in a.m. septic shock requiring pressors on admission, resolved hypernatremia - resolved Hx ESBL UTI aspiration - cleared for diet by ST starting 05/19 troponin elevation - HS trop 150s, caused by myocardial demand ischemia from septic shock abnormal LFT - ischemic hepatitis related to shock, resolved TATIANA related to sepsis, resolved acute hypoxic respiratory failure related to sepsis and pneumonia, resolved sonVictoriano, updated by phone 05/20 ([phone]) Admission and Anticipated Discharge Date Admission Date: May 15, 2024 Subjective Joan has her eyes open today and is looking around but does not give me any verbal responses per the nursing staff she did well eating oatmeal but pocketed her other food so that was not given Physical Exam 2 Physical Exam: PHYSICAL EXAMINATION Last 24h vital signs reviewed, see documentation in flowsheet General: awake and has her eyes open HEENT: Normocephalic, atraumatic, pupils round and equal, sclerae anicteric, no conjunctival injection, moist mucus membranes Lungs: Normal respiratory effort. Clear to auscultation bilaterally. No RRW Heart: Regular rate and rhythm, no murmurs. No JVD Abdomen: Soft, nontender, nondistended. Bowel sounds present. Extremities: warm and well-perfused, bilateral woody 1+ lower extremity edema ulcers tips of great toes are dry with some crusting Neuro: awake but gave no verbal responses, left upper extremity is weak with high tone and some contraction of the fingers, both lower extremities are flaccid, right upper extremity with intact strength Results & Data Results & Data Vital Signs (Past 12 Hours) Vital Signs Temp Pulse Pulse Resp BP Pulse Ox O2 Del Method 05/21/24 15:12 Oxymask 05/21/24 14:41 73 05/21/24 11:51 36.8 C 75 18 128/75 95 Oxymask 05/21/24 09:00 Oxymask 05/21/24 07:58 36.9 C 75 17 136/75 97 Oxymask 05/21/24 07:33 84 O2 Flow Rate 05/21/24 15:12 4 05/21/24 14:41 05/21/24 11:51 4 05/21/24 09:00 4 05/21/24 07:58 3 05/21/24 07:33 Laboratory Results 05/21/24 05:50 05/21/24 14:06 PG Care Time/CCT Total # of Minutes Spent Total Time Spent with Patient: Total time spent is greater than 50% in coordination of care (as documented) at patient's floor/unit and/or counseling patient: Coding Level of Care Code 97998 SUB INP/OBS CARE 3/50MIN Diagnoses Fungemia B49 Acute metabolic encephalopathy G93.41 Recurrent deep vein thrombosis (DVT) I82.409 Multiple sclerosis G35 Coffee ground emesis K92.0 Paraplegia G82.20 Dementia F03.90
--- NOTE | 2024-05-21 16:33 | Infectious Disease Progress Nt ---
Date of Service May 21, 2024 Assessment & Plan (1) Fungemia: (2) Dementia: (3) Multiple sclerosis: (4) Acute metabolic encephalopathy: (5) Septic shock: Plan This is an 83-year-old female with a past medical history of multiple sclerosis, esophagitis, trigeminal neuralgia of the left side of the face and left-sided weakness, esophageal reflux, A flutter with RVR, DVTs, ESBL UTIs, who was brought into the ED on 05/14/24 from her retirement for altered mental status. She was recently treated for ESBL E. coli UTI with Macrobid in the retirement. Noted to have worsening altered mental status throughout the day. She arrived to the ED via EMS febrile, hypotensive, tachycardic, hypoxic and minimally responsive: BP 73/51, pulse 140, RR 44, temp 39.4, O2 sats 82% on room air. She remained hypotensive despite aggressive fluid resuscitation. She was started on Levophed, vancomycin, Zosyn and admitted to the ICU. Labs: WBC 25.23, platelets 272, BUN 68, creatinine 1.26, lactate 3.3, procalcitonin 1.53. Urine 6-8 10 WBCs. Blood cultures positive for Jaja glabrata on opvizor: 10/23 bottles. Covid, RSv, Influenza PCR negative. Chest x- ray demonstrated peribronchial thickening compatible with infectious/inflammatory airway disease or viral pneumonia. No surya consolidation. Repeat Cx-ray showed a left basilar consolidation. CT abdomen pelvis showed a large amount of poorly formed stool within the rectum. Distention of the distal sigmoid colon and rectum which is chronic: Cholelithiasis without acute cholecystitis. Abdominal ultrasound with no acute abnormalities. Transthoracic cardiogram was a technically difficult study but no significant valvular abnormalities visualized. There patient is obtunded and cannot provide a history. There is no history of hardware, prosthetics. She has no central line/port. He has been started on caspofungin. Infectious disease consulted for fungemia. She is off pressors and her leukocytosis has resolved. Microbiology: Blood cultures 05/15/2024: Yeast not Jaja albicans/dub in 4/4 bottles, Jaja glabrata on BC ID Urine culture 05/15/2024 no growth Fungal blood culture 05/16/2024 NGTD Antibiotics/antifungals: Vancomycin 05/14 Zosyn 05/14 Meropenem 04/2410/ Caspofungin 05/16ongoing # Septic shock, off pressors # Fungemia # Leukocytosis, improving # Encephalopathy # Acute hypoxic respiratory failure # Multiple sclerosis Discussion:Septic shock in the setting of fungemia of unknown etiology. She does not have an obvious source. No GI or pathology. Abdomen benign. CT abdomen without any acute findings. Urine culture with no significant growth. She has a history of esophagitis but no report of recent dysphagia or issues swallowing. I cannot fully evaluate her oropharynx given her mental status. No rash or skin abnormalities concerning for severe candidiasis. L great toe eschar. No hardware/prosthetics. No central lines. Recommendation: Continue Caspofungin 50 mg Iv daily. If repeat Blood culture positive would increase to endocarditis dosin mg Iv daily May need KIRIT once clinically stable Would treat for 2 weeks if no endocarditis or persistent fungemia Will repeat routine blood cultures. At this time the only repeat cultures include specific fungal cultures If mental status does not improve, consider head/brain imaging Check BL foot xrays She will need an ophthalmologic exam in outpatient ID will continue to follow Alok Elliott MD, MPH Infectious Disease [facility] Call [phone] with questions Admission and Anticipated Discharge Date Admission Date: May 15, 2024 Subjective This patient recommendation is based on a telemedicine consult request which was completed asynchronously through chart review and information provided by the primary physician. The patient was not seen or examined today. The evaluation is consultative in nature and all patient care and treatment decisions can either be accepted or rejected by the patient's primary hospital-based treating physician using their own independent medical judgment for their patient. Time Spent Reviewing Chart: 11 - 20 minutes Results & Data Vital Signs (Past 12 Hours) Vital Signs Temp Pulse Pulse Resp BP Pulse Ox O2 Del Method 05/21/24 15:12 Oxymask 05/21/24 14:41 73 05/21/24 11:51 36.8 C 75 18 128/75 95 Oxymask 05/21/24 09:00 Oxymask 05/21/24 07:58 36.9 C 75 17 136/75 97 Oxymask 05/21/24 07:33 84 O2 Flow Rate 05/21/24 15:12 4 05/21/24 14:41 05/21/24 11:51 4 05/21/24 09:00 4 10/31/24 07:58 3 05/21/24 07:33 Laboratory Results 05/21/24 11:27 Aerobic Blood Culture - Pending Blood Anaerobic Blood Culture - Pending 05/21/24 05/21/24 05/21/24 14:06 05:50 05:45 WBC 9.25 RBC 3.57 L Hgb 10.0 L Hct 30.8 L MCV 86.3 MCH 28.0 MCHC 32.5 RDW Std Deviation 47.4 H RDW Coeff of Aparna 15.1 H Plt Count 260 MPV 11.7 Sodium 144 Potassium 3.6 D 2.3 L* D Chloride 105 Carbon Dioxide 31 Anion Gap 8 BUN 13 Creatinine 0.59 L Est Cr Clr Drug Dosing 79.8 eGFR 88.26 BUN/Creatinine Ratio 22.0 H Glucose 100 H Calcium 8.4 L Magnesium 1.5 L Diagnostic Findings Microbiology 05/15/24 00:40 Blood Aerobic Blood Culture - Preliminary Yeast not Jaja albicans/dub 05/15/24 00:40 Blood Anaerobic Blood Culture - Preliminary Yeast not Jaja albicans/dub 05/15/24 00:40 Blood Aerobic Blood Culture - Preliminary Yeast not Jaja albicans/dub 05/15/24 00:40 Blood Anaerobic Blood Culture - Preliminary Yeast not Jaja albicans/dub 05/16/24 17:56 Blood Fungal Smear - Final 05/15/24 03:30 Urine,Indwelling Cath Urine Culture - Final No growth - less than 1,000 colonies/mL. Gallbladder Ultrasound 05/19/24 00:00 US gallbladder CLINICAL HISTORY: sepsis, fungemia, gallstones; r/o cholecystitis TECHNIQUE: Multiple real-time sonographic images of the right upper quadrant were obtained. Comparison: Comparison is made to CT abdomen pelvis 05/17/2024 FINDINGS: The liver is diffusely echogenic in appearance with poor ultrasound penetration, with normal contour, which is consistent with fatty infiltration. No focal mass lesions are seen. No intrahepatic ductal dilatation is seen. Linear hyperechoic foci with posterior shadowing are identified layering dependently within the gallbladder, which are consistent with gallstones. Gallbladder sludge is also seen. The gallbladder wall is not thickened. There is no pericholecystic fluid present. A sonographic Eller's sign was not elicited by the pigment weigher. The common duct measures 0.4 cm in diameter at the level of the hepatic artery. The visualized portions of the pancreas appear normal. The right kidney shows normal echogenicity, cortical thickness and renal con tour. The right kidney shows no evidence of hydronephrosis or mass. No ascites or free fluid is seen in Beasley's pouch. IMPRESSION: 1. No acute abnormalities and in particular no evidence of acute cholecystitis. 2. No evidence of acute cholecystitis. ACT 112: Negative or not required by law. Electronically signed by: Ted Armstrong M.D. 05/19/2024 8:58 AM Medications Administered Home Medications Medication Instructions Recorded Confirmed Last Taken Saccharomyces bodottiedii 250 mg 250 mg PO BID 02/23/24 05/15/24 05/14/24 16:30 capsule (Florastor) acetaminophen 325 mg tablet 650 mg PO Q6 PRN Fever Or Pain 02/23/24 05/15/24 Unknown (Tylenol) ascorbic acid (vitamin C) 1,000 mg 1 g PO AMHS 02/23/24 05/15/24 05/14/24 20:30 tablet (Vitamin C) bisacodyl 10 mg rectal suppository 10 mg NH HS 02/23/24 05/15/24 05/14/24 20:30 cholecalciferol (vitamin D3) 25 25 mcg PO QAM 02/23/24 05/15/24 05/14/24 08:30 mcg (1,000 unit) tablet (Vitamin D3) citalopram 10 mg tablet 10 mg PO DAILY 02/23/24 05/15/24 05/14/24 08:30 cyanocobalamin (vitamin B-12) 1,000 mcg PO QAM 02/23/24 05/15/24 05/14/24 08:30 1,000 mcg tablet (Vitamin B-12) gabapentin 600 mg tablet 600 mg PO TID 02/23/24 05/15/24 05/14/24 16:30 glatiramer 20 mg/mL subcutaneous 20 mg subcut QAM 02/23/24 05/15/24 05/14/24 08:30 syringe (Copaxone) lip protective (padimate o) 1 ea topical QPM 02/23/24 05/15/24 05/14/24 20:30 methenamine hippurate 1 gram tablet 1 g PO BID 02/23/24 05/15/24 05/14/24 16:30 metoprolol tartrate 25 mg tablet 25 mg PO BID 02/23/24 05/15/24 05/14/24 20:30 multivitamin 1 tab PO QAM 02/23/24 05/15/24 05/14/24 08:30 ondansetron HCl 4 mg tablet 4 mg PO Q8 PRN Nausea 02/23/24 05/15/24 Unknown pantoprazole 40 mg tablet,delayed 40 mg PO QAM 02/23/24 05/15/24 05/14/24 08:30 release polyethylene glycol 3350 17 gram 17 g PO QAM 02/23/24 05/15/24 05/14/24 08:30 oral powder packet (Miralax) potassium chloride 10 mEq 20 meq PO TID 02/23/24 05/15/24 05/14/24 16:30 tablet,extended release sennosides 8.6 mg-docusate sodium 1 tab-cap PO AMHS 02/23/24 05/15/24 05/14/24 20:30 50 mg tablet (Senokot-S) tramadol 50 mg tablet 100 mg PO TID 02/23/24 05/15/24 05/14/24 16:30 warfarin 5 mg tablet 5 mg PO QPM 02/23/24 05/15/24 05/14/24 20:30 Active Medications Generic Name Dose Route Start Last Admin Trade Name Freq PRN Reason Stop Dose Admin Bisacodyl 10 mg 05/20/24 21:00 05/20/24 20:26 Bisacodyl 10 Mg Supp NH 06/19/24 20:59 10 mg HS JAVID Administration Citalopram Hydrobromide 10 mg 05/21/24 09:00 05/21/24 09:00 Citalopram 20 Mg Tab PO 06/20/24 08:59 10 mg DAILY JAVID Administration Enoxaparin Sodium 80 mg 05/19/24 17:00 05/21/24 05:11 Enoxaparin 80 Mg/0.8 Ml Syr SQ 06/18/24 16:59 80 mg Q12H JAVID Administration Caspofungin 50 mg/ Sodium 260 mls @ 260 mls/hr 05/18/24 12:00 05/21/24 09:43 Chloride IV 06/17/24 11:59 Infused DAILY JAVID Infusion Pantoprazole Sodium 40 mg 05/21/24 09:00 10/31/24 09:00 Pantoprazole 40 Mg Tab PO 06/20/24 08:59 40 mg QAM JAVID Administration Tramadol HCl 50 mg 05/20/24 21:00 05/21/24 15:35 Tramadol Hcl 50 Mg Tablet PO 06/19/24 20:59 Not Given TID JAVID
--- NOTE | 2024-05-21 17:47 | Communication Note ---
Date of Service: May 21, 2024 Having black stools. H/H was stable this AM. CBC in AM Hold enoxaparin. Check Hemoccult Increased PPI to bid
[2024-05-21] MEDS: MICONAZOLE NITRATE POWDER 85 GM EXT SCH (20:02)
[2024-05-22 06:16] LABS: Hematocrit (blood only) 30.2 % (37.0-47.0); Hemoglobin 9.5 g/dl (12.0-16.0); Mean Corpuscular Hemoglobin 28.1 pg (25.0-34.0); Mean Corpuscular Hgb Conc 31.5 g/dL (32.0-36.0); Mean Corpuscular Volume 89.3 fL (80.0-100.0); Mean Platelet Volume 10.7 fL (9.4-12.4); Platelet Count 272 K/uL (130-400); RDW Coefficient of Variation 15.5 % (11.5-14.5); Red Blood Count 3.38 M/uL (4.20-5.40); White Blood Count 7.33 K/ul (4.8-10.8)
[2024-05-22 06:43] LABS: BUN Creatinine Ratio 24.4 (10-20); Calcium 8.3 mg/dl (8.6-10.3); Creatinine Clr Calc Pharmacy 104.6 ml/min; Magnesium 1.9 mg/dl (1.7-2.4)
--- NOTE | 2024-05-22 08:47 | XRay Report ---
XR foot LT 2V HISTORY: 83 years-old Female foot ulcers (tip great toes), fungemia soft tissue edema with possible osteomyelitis COMPARISON: Right foot radiograph same day, left foot radiographs 02/06/2015 TECHNIQUE: 2 views of the left foot FINDINGS: Demineralized appearance of the bones. Diffuse soft tissue swelling moderate to marked within the for efoot. Arterial calcifications. Multifocal osteoarthritis which is moderate within the mid foot and h ind foot and probably mild within the forefoot. There is a soft tissue ulcer involving the distal gre at toe. No definite acute fracture, dislocation or osseous identified. IMPRESSION: 1. Soft tissue swelling also the distal great toe. 2. No acute fracture, dislocation or definite osseous erosion identified at this time. If there is fu rther clinical concern, MRI may be considered. ACT 112: Negative or not required by law. The above report was generated using voice recognition software. It may contain grammatical, syntax o r spelling errors. Electronically signed by: Devaughn López M.D. 05/22/2024 8:21 AM
--- NOTE | 2024-05-22 08:47 | XRay Report ---
XR foot RT 2V CLINICAL HISTORY: foot ulcers (tip great toes), fungemia COMPARISON: None FINDINGS: Alignment of the left foot is anatomic. Tarsometatarsal joints are intact. There is osteop enia. There are no fractures. No bony erosion is identified. There is a bandage on the left great toe . There are plantar and posterior calcaneal spurs. Moderate mid foot osteoarthritis is present. IMPRESSION: No fractures within the left foot. No radiographic evidence for acute osteomyelitis. ACT 112: Negative or not required by law. Electronically signed by: Naga Genao M.D. 05/22/2024 8:28 AM
[2024-05-22] MEDS: POTASSIUM CHLORIDE PWD 20 MEQ PACK PO SCH (10:26)
--- NOTE | 2024-05-22 11:02 | Infectious Disease Progress Nt ---
Date of Service May 22, 2024 Assessment & Plan (1) Fungemia: (2) Dementia: (3) Multiple sclerosis: (4) Acute metabolic encephalopathy: (5) Septic shock: Plan This is an 83-year-old female with a past medical history of multiple sclerosis, esophagitis, trigeminal neuralgia of the left side of the face and left-sided weakness, esophageal reflux, A flutter with RVR, DVTs, ESBL UTIs, who was [place] into the ED [facility] status. She was recently treated for ESBL E. coli UTI with Macrobid in the jail. Noted to have worsening altered mental status throughout the day. She arrived to the ED via EMS febrile, hypotensive, tachycardic, hypoxic and minimally responsive: BP 73/51, pulse 140, RR 44, temp 39.4, O2 sats 82% on room air. She remained hypotensive despite aggressive fluid resuscitation. She was started on Levophed, vancomycin, Zosyn and admitted to the ICU. Labs: WBC 25.23, platelets 272, BUN 68, creatinine 1.26, lactate 3.3, procalcitonin 1.53. Urine 6-8 10 WBCs. Blood cultures positive for Jaja glabrata on Web and Rank: 10/23 bottles. Covid, RSv, Influenza PCR negative. Chest x- ray demonstrated peribronchial thickening compatible with infectious/inflammatory airway disease or viral pneumonia. No surya consolidation. Repeat Cx-ray showed a left basilar consolidation. CT abdomen pelvis showed a large amount of poorly formed stool within the rectum. Distention of the distal sigmoid colon and rectum which is chronic: Cholelithiasis without acute cholecystitis. Abdominal ultrasound with no acute abnormalities. Transthoracic cardiogram was a technically difficult study but no significant valvular abnormalities visualized. There patient is obtunded and cannot provide a history. There is no history of hardware, prosthetics. She has no central line/port. She has been started on caspofungin. Infectious disease consulted for fungemia. She is off pressors and her leukocytosis has resolved. Microbiology: Blood cultures 05/15/2024: Yeast not Jaja albicans/dub in 4/4 bottles, Jaja glabrata on BC ID Urine culture 05/15/2024 no growth -Fungal blood culture 05/16/2024 NGTD Antibiotics/antifungals: Vancomycin 05/14 Zosyn 05/14 Meropenem 04/2410/ Caspofungin 05/16ongoing # Septic shock, off pressors # Fungemia # Leukocytosis, improving # Encephalopathy # Acute hypoxic respiratory failure # Multiple sclerosis Discussion:Septic shock in the setting of fungemia of unknown etiology. She does not have an obvious source. No GI or pathology. Abdomen benign. CT abdomen without any acute findings. Urine culture with no significant growth. She has a history of esophagitis but no report of recent dysphagia or issues swallowing. I cannot fully evaluate her oropharynx given her mental status. She has a left ?candidal appearing rash under the Left breast. She has bilater ulcers of tip of great toes with . L great toe eschar. No hardware/prosthetics. No central lines. BL foot xray with no osteo. Recommendation: Continue Caspofungin 50 mg Iv daily. If repeat Blood culture positive would increase to endocarditis dosin mg Iv daily May need KIRIT once clinically stable Would treat for 2 weeks if no endocarditis or persistent fungemia Follow up repeat BC and Fungal blood culture Follow up yeast formal ID and sensi Check ct head vs MRi head given continued AMS unclear baseline) No OM on xry of BL foot, would pursue MRI in setting of unknown etiology of fungemia. She will need an ophthalmologic exam in outpatient DW team ID will continue to follow. [facility] will not round over the weekend. Call [phone] with questions Alok Elliott MD, MPH Infectious Disease [facility], ID Division Admission and Anticipated Discharge Date Admission Date: May 15, 2024 Subjective Subsequent visit was provided via telemedicine using two-way real-time interactive telecommunication between the patient and the telemedicine provider. For the duration of the visit, the provider was performing the assessment from a different facility than the patient. This includesuse of bluetooth stethoscope forauscultationperformed by the telepresenter that the telemedicine provider can hear if described in the physical exam. Shift Production Supervisor contact information: Please call [facility] Call Center . (Phone Number For Physician Use Only) After establishing a telemedicine visit, patient was: Patient was verified with two unique identifiers Time Spent with Patient: Subsequent => 35 min No major changes Opens eyes but doesnt respond to my quesions. Afebrile Repeat BC results pending Physical Exam Physical Exam: Gen- Awake but not responsive Neck- supple Lung- No increased work of breathing. 4L oxy mask Abd- soft LE- Bl lE great toe ulcer. L eft more necrotic. Not tender, no evidence of cellulitis, BL Edema Neuro Awake, not responsive Skin - Left under breast candidal appearing infection BL great toe ulcers. See ext exam. Results & Data Vital Signs (Past 12 Hours) Vital Signs Temp Pulse Pulse Resp BP Pulse Ox O2 Del Method 05/22/24 08:01 36.9 C 68 17 137/75 97 Oxymask 05/22/24 08:00 Oxymask 05/22/24 07:00 71 05/22/24 03:01 36.8 C 72 18 138/76 97 Oxymask 05/22/24 00:30 Oxymask O2 Flow Rate 05/22/24 08:01 4 05/22/24 08:00 4 05/22/24 07:00 05/22/24 03:01 4 05/22/24 00:30 4 Laboratory Results Short CBC 05/22/24 Range/Units 05:45 WBC 7.33 (4.8-10.8) K/ul Hgb 9.5 L (12.0-16.0) g/dl Hct 30.2 L (37.0-47.0) % Plt Count 272 (130-400) K/uL BMP 05/21/24 05/22/24 14:06 05:45 Sodium 142 Potassium 3.6 D 3.0 L Chloride 106 Carbon Dioxide 30 BUN 11 Creatinine 0.45 L Glucose 90 Calcium 8.3 L Diagnostic Findings Microbiology 05/15/24 00:40 Blood Aerobic Blood Culture - Preliminary Yeast not Jaja albicans/dub 05/15/24 00:40 Blood Anaerobic Blood Culture - Preliminary Yeast not Jaja albicans/dub 05/15/24 00:40 Blood Aerobic Blood Culture - Preliminary Yeast not Jaja albicans/dub 05/15/24 00:40 Blood Anaerobic Blood Culture - Preliminary Yeast not Jaja albicans/dub 05/16/24 17:56 Blood Fungal Smear - Final 05/15/24 03:30 Urine,Indwelling Cath Urine Culture - Final No growth - less than 1,000 colonies/mL. Foot X-Ray 05/22/24 07:34 XR foot RT 2V CLINICAL HISTORY: foot ulcers (tip great toes), fungemia COMPARISON: None FINDINGS: Alignment of the left foot is anatomic. Tarsometatarsal joints are intact. There is osteopenia. There are no fractures. No bony erosion is identified. There is a bandage on the left great toe. There are plantar and posterior calcaneal spurs. Moderate mid foot osteoarthritis is present. IMPRESSION: No fractures within the left foot. No radiographic evidence for acute osteomyelitis. ACT 112: Negative or not required by law. Electronically signed by: Naga Genao M.D. 05/22/2024 8:28 AM Foot X-Ray 05/22/24 07:34 XR foot LT 2V HISTORY: 83 years-old Female foot ulcers (tip great toes), fungemia soft tissue edema with possible osteomyelitis COMPARISON: Right foot radiograph same day, left foot radiographs 02/06/2015 TECHNIQUE: 2 views of the left foot FINDINGS: Demineralized appearance of the bones. Diffuse soft tissue swelling moderate to marked within the forefoot. Arterial calcifications. Multifocal osteoarthritis which is moderate within the mid foot and hind foot and probably mild within the forefoot. There is a soft tissue ulcer involving the distal great toe. No definite acute fracture, dislocation or osseous identified. IMPRESSION: 1. Soft tissue swelling also the distal great toe. 2. No acute fracture, dislocation or definite osseous erosion identified at this time. If there is further clinical concern, MRI may be considered. ACT 112: Negative or not required by law. The above report was generated using voice recognition software. It may contain grammatical, syntax or spelling errors. Electronically signed by: Devaughn López M.D. 05/22/2024 8:21 AM
--- NOTE | 2024-05-22 16:29 | Hospitalist Progress Note ---
Date of Service May 22, 2024 Assessment & Plan (1) Fungemia: Plan: 83-year-old woman with severe dementia and paraplegia related to multiple sclerosis admitted with septic shock. Found to have high-grade candidemia. all admission blood cx's + for yeast, C. glabrata by molecular assay ID/sensitivities of the yeast has been sent out to [facility] -continue caspofungin, day 7 repeat fungal blood cx's obtained 05/16, 05/21 - remain negative to date source for her fungemia is unknown she does not have any central lines, or recent history of such that I am aware of TTE was normal without any valvular pathology, however, was a limited quality study recent urine cx x 2 without yeast no skin breakdown per nursing CT abd/pelvis was notable for esophageal thickening and colonic distention which are chronic findings, right upper quadrant ultrasound 05/18 with stones and sludge but no evidence of acute cholecystitis she is immunocompromised due to her advanced dementia status, having multiple sclerosis, being on Copaxone, etc. ophthalmologic exam would be ideal but may be extremely difficult to achieve. consulted ID - for 05/22 we discussed brain MRI for encephalopathy (could have septic emboli) and imaging of feet to look for osteo associated with the toe ulcers - xrays were negative so I ordered MRI of feet considered KIRIT to better define duration of treatment, however her family does not want to pursue invasive procedures (2) Acute metabolic encephalopathy: Plan: 2nd to septic shock, fungemia, LLL pneumonia severe hypoactive delirium persists brain MRI as above (3) Recurrent deep vein thrombosis (DVT): Plan: typically on coumadin 5mg daily, INR supratherapeutic at 7.4 at time of admission 10mg of vitamin K at time of admission due to coffee-ground emesis -held enoxaparin because of black stool last night (4) Multiple sclerosis: Plan: typically on gabapentin 600mg TID, Copaxone daily - all on hold (5) Coffee ground emesis: Plan: while being admitted had such, by report does have prior h/o esophagitis had black stool last night -held enoxaparin -Hg has drifted down -Hemoccult pending -PPI to bid (6) Paraplegia: Plan: acquired, presumably related to multiple sclerosis and dementia by report is nonambulatory (7) Dementia: Plan: severe by report non-ambulatory DNR/DNI status per family she has some remote memory from her childhood, but short-term memory is non-existent. she is usually conversational, however Plan hypokalemia K 3.0 - replacing po hypomagnesemia of 1.5, replaced. Mag 1.9 -AM BMP septic shock requiring pressors on admission, resolved hypernatremia - resolved Hx ESBL UTI aspiration - cleared for diet by ST starting 05/19 troponin elevation - HS trop 150s, caused by myocardial demand ischemia from septic shock abnormal LFT - ischemic hepatitis related to shock, resolved TATIANA related to sepsis, resolved acute hypoxic respiratory failure related to sepsis and pneumonia, resolved sonVictoriano, updated by phone 05/20, 05/222 ([phone]) Admission and Anticipated Discharge Date Admission Date: May 15, 2024 Subjective eyes open today but limited interaction only words for me when I asked her where she had pain she said "my stomach" was having black liquid stools last night, anticoagulation held Physical Exam 2 Physical Exam: PHYSICAL EXAMINATION Last 24h vital signs reviewed, see documentation in flowsheet General: lying in bed awake HEENT: Normocephalic, atraumatic, pupils round and equal, sclerae anicteric, no conjunctival injection, moist mucus membranes Lungs: Normal respiratory effort. Clear to auscultation bilaterally. No RRW Heart: Regular rate and rhythm, no murmurs. No JVD Abdomen: s/nt/nd no rrg +BT Extremities: warm and well-perfused, bilateral woody 1+ lower extremity edema ulcers tips of great toes are dry with some crusting - unchanged Neuro: awake but gave only one verbal response, remains poorly interactive, left upper extremity is weak with high tone and some contraction of the fingers, both lower extremities are flaccid, right upper extremity with intact strength Results & Data Results & Data Vital Signs (Past 12 Hours) Vital Signs Temp Pulse Pulse Resp BP Pulse Ox O2 Del Method 05/22/24 15:34 36.7 C 75 17 150/87 H 99 Oxymask 05/22/24 15:00 63 05/22/24 11:45 36.9 C 70 17 150/76 H 100 Oxymask 05/22/24 08:01 36.9 C 68 17 137/75 97 Oxymask 05/22/24 08:00 Oxymask 05/22/24 07:00 71 O2 Flow Rate 05/22/24 15:34 4 05/22/24 15:00 05/22/24 11:45 4 05/22/24 08:01 4 05/22/24 08:00 4 05/22/24 07:00 Laboratory Results 05/22/24 05:45 05/22/24 05:45 PG Care Time/CCT Total # of Minutes Spent Total Time Spent with Patient: Total time spent is greater than 50% in coordination of care (as documented) at patient's floor/unit and/or counseling patient: Coding Level of Care Code 02810 SUB INP/OBS CARE 3/50MIN Diagnoses Fungemia B49 Acute metabolic encephalopathy G93.41 Recurrent deep vein thrombosis (DVT) I82.409 Multiple sclerosis G35 Coffee ground emesis K92.0 Paraplegia G82.20 Dementia F03.90
[2024-05-22] MEDS: GADOBUTROL 65ML VIAL IV ONE (17:31)
--- NOTE | 2024-05-22 19:27 | Magnetic Resonance Report ---
EXAM: MR brain wo/w con CLINICAL HISTORY: hx of MS, advanced dementia. no known trauma to head. possible sepsis. injected 8ml zach @ 1725. TECHNIQUE: Different pulse sequences were performed in different planes for the brain without and with GD-DTPA injection. 8ml zach was administered. Images were sent through PACs for interpretation. COMPARISON: prior CT dated 02/22/2024.Prior MRI study dated 04/29/2015. FINDINGS: No hyperacute or acute infarctions could be detected. No definite restricted diffusion to suggest an inflammatory process. Chronic infarction with her cystic gliosis and possible communication with the left lateral ventricle posterior horn. Findings are consistent with chronic infarction sequelae. Altered deep white matter signals are seen at the forceps minor, forceps major, periventricular, and centrum semiovale regions. These exhibit bright signals on T2 and FLAIR WI and intermediate signals on T1 WI. No appreciable enhancement after Gd-DTPA injection. Findings suggest consequences of small vessel disease, e.g., hypertensive and/or diabetic vasculopathy, vs. consequences of demyelinating disease, e.g., multiple sclerosis. Age-appropriate degenerative involutional changes are denoted by symmetrical dilatation of the ventricular system, prominent cortical sulci, Sylvian fissures, cerebellar, vermian folia, and basal cisterns. More widening of the temporal lobes of the lateral ventricles. Most appreciated on the right side, measuring 18 mm, suggesting bilateral temporal lobe atrophy. Downward herniation of the suprasellar cistern through the diaphragma sellae, compressing the pituitary gland against the sellar floor consistent with primary empty sella. Hyperostosis frontalis interna. Right squamous temporal Bone arachnoid granulation. Normal MRI appearance of the cerebellar parenchymal signals. Normal MRI appearance of the central joshua matter aggregates. Normal MRI appearance of different anatomical parts of the brain stem, namely the midbrain, itzel, and medulla oblongata. Normal MRI appearance of the petrous temporal bones, brainstem, vestibule cochlear nerves, and cerebellopontine angles with no definite masses. No shift of midline structures. No intracerebral or extra-axial hematomas or masses. Normal MRI appearance of orbital structures, both globes, optic nerves, optic chiasm, optic tracts, and optic radiations. The scanned paranasal sinuses are unremarkable. Deviation of the nasal septum to the left side. IMPRESSION: 1. No hyperacute or acute infarctions. 2. No intracerebral or extra axial hematoma. 3. No definite current MRI features to suggest an inflammatory process. 4. 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 5. Altered deep white matter signals with anatomical distribution and imaging features consistent with the consequences of small vessel disease, e.g., hypertensive and/or diabetic vasculopathy, vs. consequences of demyelinating disease, e.g., multiple sclerosis. ([place]as, grade 3). 6. Age-appropriate degenerative involutional changes with associating imaging features suggest more atrophy of the temporal lobes, more appreciated on the right side. Correlation with CLINICAL score is recommended. 7. Primary empty sella. 8. Hyperostosis frontalis interna. 9. Right squamous temporal Bone arachnoid granulation. 10. The comparison matches the CT findings and is consistent with a stationary course. Electronically signed by Brandan Guevara 05-22-2024 7:27 PM
[2024-05-23 07:38] LABS: Calcium 8.2 mg/dl (8.6-10.3); Creatinine Clr Calc Pharmacy 119.2 ml/min; Potassium 3.4 mmol/L (3.5-5.1)
[2024-05-23] MEDS: GADOBUTROL 65ML VIAL IV ONE (12:25)
--- NOTE | 2024-05-23 13:45 | Magnetic Resonance Report ---
MR foot RT wo/w con HISTORY: 83 years-old Female fungemia, chronic 1st toe wounds, osteo? Chronic bilateral foot pain wi th possible osteomyelitis COMPARISON: Right foot radiographs 05/22/2024 TECHNIQUE: Multiplanar multisequence MRI of the right foot was obtained with and without IV contrast. FINDINGS: Motion degraded exam. There is severe diffuse muscle atrophy. Demineralized appearance of the bones. Kiab-li-kkmgawto multifocal osteoarthritis. No acute fracture, dislocation or osseous erosion identif ied. Minimal marrow edema of the first distal phalanx with preserved T1 signal. Plantar intramuscular edema of the medial forefoot, likely secondary to denervation change. Subcutane ous edema is most pronounced dorsally. IMPRESSION: 1. Motion degraded exam. 2. Minimal marrow edema of the first distal phalanx with preserved T1 marrow signal suggestive of ost eitis. Early developing osteomyelitis could appear similarly. 3. Subcutaneous edema without abscess. 4. Chronic denervation changes with osteoarthritis. ACT 112: Negative or not required by law. The above report was generated using voice recognition software. It may contain grammatical, syntax o r spelling errors. Electronically signed by: Devaughn López M.D. 05/23/2024 1:43 PM
--- NOTE | 2024-05-23 13:49 | Magnetic Resonance Report ---
MR foot LT wo/w con HISTORY: 83 years-old Female fungemia, chronic 1st toe wounds, osteo? Cellulitis with bilateral foot pain COMPARISON: Left foot radiographs 05/22/2024 TECHNIQUE: Multiplanar multisequence MRI of the left foot was obtained with and without IV contrast. FINDINGS: Motion degraded exam. Diffuse muscle atrophy with moderate to extensive subcutaneous edema, most pron ounced dorsally. No drainable fluid collections. Minimal marrow edema involves the distal aspect of t he first distal phalanx with preserved T1 marrow signal. Trace first MTP joint effusion. No acute fra cture, dislocation or osseous erosion. No enhancing mass lesions identified. Hllf-mo-bnplikpy osteoar thritis. No suspicious enhancement. IMPRESSION: 1. Minimal marrow edema of the first distal phalanx with preserved T1 marrow signal suggestive of ost eitis. Early developing osteomyelitis could appear similarly. 2. No osseous erosions identified. 3. Subcutaneous edema may represent cellulitis, venous stasis or lymphedema. 4. No fluid collection to suggest abscess. ACT 112: Negative or not required by law. The above report was generated using voice recognition software. It may contain grammatical, syntax o r spelling errors. Electronically signed by: Devaughn López M.D. 05/23/2024 1:47 PM
--- NOTE | 2024-05-23 17:36 | Hospitalist Progress Note ---
Date of Service May 23, 2024 Assessment & Plan (1) Fungemia: Plan: 83-year-old woman with severe dementia and paraplegia related to multiple sclerosis admitted with septic shock. Found to have high-grade candidemia. all admission blood cx's + for yeast, C. glabrata by molecular assay ID/sensitivities of the yeast has been sent out to [facility] -continue caspofungin repeat fungal blood cx's obtained 05/16, 05/21 - remain negative to date source for her fungemia is unknown she does not have any central lines, or recent history of such that I am aware of TTE was normal without any valvular pathology, however, was a limited quality study recent urine cx x 2 without yeast no skin breakdown per nursing CT abd/pelvis was notable for esophageal thickening and colonic distention which are chronic findings, right upper quadrant ultrasound 05/18 with stones and sludge but no evidence of acute cholecystitis she is immunocompromised due to her advanced dementia status, having multiple sclerosis, being on Copaxone, etc. ophthalmologic exam would be ideal but may be extremely difficult to achieve. 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 Bilateral foot MRI with changes bilateral great toes - some minimal marrow edema at distal phalanx with preserved T1 marrow signal c/w osteitis, vs early developing osteomyelitis considered KIRIT to better define duration of treatment, however her family does not want to pursue invasive procedures for now will continue caspofungin, I am concerned that we have not seen any significant improvement in her encephalopathy (2) Acute metabolic encephalopathy: Plan: 2nd to septic shock, fungemia, LLL pneumonia severe hypoactive delirium persists brain MRI as above (3) Coffee ground emesis: Plan: slow gastrointestinal bleeding while being admitted had coffee ground emesis, later in admission black hemoccult+ stools does have prior h/o esophagitis -anticoagulation held -not a candidate for EGD -Hg has drifting down - AM CBC -continue bid PPI (4) Recurrent deep vein thrombosis (DVT): Plan: typically on coumadin 5mg daily, INR supratherapeutic at 7.4 at time of admission 10mg of vitamin K at time of admission due to coffee-ground emesis -anticoagulation held (5) Multiple sclerosis: Plan: typically on gabapentin 600mg TID, Copaxone daily - all on hold (6) Paraplegia: Plan: acquired, presumably related to multiple sclerosis and dementia by report is nonambulatory (7) Dementia: Plan: severe by report non-ambulatory DNR/DNI status per family she has some remote memory from her childhood, but short-term memory is non-existent. she is usually conversational, however Plan hypokalemia K 3.4 hypomagnesemia replaced -AM BMP septic shock requiring pressors on admission, resolved hypernatremia - resolved Hx ESBL UTI aspiration - cleared for diet by ST starting 05/19 troponin elevation - HS trop 150s, caused by myocardial demand ischemia from septic shock abnormal LFT - ischemic hepatitis related to shock, resolved TATIANA related to sepsis, resolved acute hypoxic respiratory failure related to sepsis and pneumonia, resolved sonVictoriano, updated by phone 05/23 ([phone]) Admission and Anticipated Discharge Date Admission Date: May 15, 2024 Subjective continues to be awake but not verbalizing nodded yes/no to a few questions Physical Exam 2 Physical Exam: PHYSICAL EXAMINATION Last 24h vital signs reviewed, see documentation in flowsheet General: lying in bed awake, eyes open exam unchanged 05/23: HEENT: Normocephalic, atraumatic, pupils round and equal, sclerae anicteric, no conjunctival injection, moist mucus membranes Lungs: Normal respiratory effort. Clear to auscultation bilaterally. No RRW Heart: Regular rate and rhythm, no murmurs. No JVD Abdomen: s/nt/nd no rrg +BT Extremities: warm and well-perfused, bilateral woody 1+ lower extremity edema ulcers tips of great toes are dry covered with eschar- unchanged Neuro: awake but no verbal responses, remains poorly interactive, left upper extremity is weak with high tone and some contraction of the fingers, both lower extremities are flaccid, right upper extremity with intact strength Results & Data Results & Data Vital Signs (Past 12 Hours) Vital Signs Temp Pulse Pulse Resp BP Pulse Ox O2 Del Method 05/23/24 15:00 65 05/23/24 08:01 36.9 C 65 16 155/76 H 100 Nasal Cannula O2 Flow Rate 05/23/24 15:00 05/23/24 08:01 2 Laboratory Results 05/22/24 05:45 05/23/24 06:35 PG Care Time/CCT Total # of Minutes Spent Total Time Spent with Patient: Total time spent is greater than 50% in coordination of care (as documented) at patient's floor/unit and/or counseling patient: Coding Level of Care Code 83899 SUB INP/OBS CARE MIN Diagnoses Fungemia B49 Acute metabolic encephalopathy G93.41 Coffee ground emesis K92.0 Recurrent deep vein thrombosis (DVT) I82.409 Multiple sclerosis G35 Paraplegia G82.20 Dementia F03.90
[2024-05-24 06:19] LABS: Hematocrit (blood only) 31.6 % (37.0-47.0); Mean Corpuscular Hemoglobin 28.2 pg (25.0-34.0); Mean Corpuscular Hgb Conc 31.6 g/dL (32.0-36.0); Mean Platelet Volume 10.5 fL (9.4-12.4); Platelet Count 269 K/uL (130-400); RDW Coefficient of Variation 15.2 % (11.5-14.5); RDW Standard Deviation 49.1 fL (36.4-46.3); Red Blood Count 3.55 M/uL (4.20-5.40); White Blood Count 7.41 K/ul (4.8-10.8)
[2024-05-24 06:34] LABS: BUN Creatinine Ratio 17.4 (10-20); Calcium 8.6 mg/dl (8.6-10.3); Creatinine Clr Calc Pharmacy 102.6 ml/min; Potassium 3.6 mmol/L (3.5-5.1)
[2024-05-24] MEDS: traMADol HCL 50 MG TABLET PO SCH (10:31)
--- NOTE | 2024-05-24 11:52 | Hospitalist Progress Note ---
Date of Service May 24, 2024 Assessment & Plan (1) Fungemia: Plan: 83-year-old woman with severe dementia and paraplegia related to multiple sclerosis admitted with septic shock. Found to have high-grade candidemia. all admission blood cx's + for yeast, C. glabrata by molecular assay ID/sensitivities of the yeast has been sent out to [facility] -continue caspofungin (start date 05/16 or ? confirm with pharmacy). Has completed at least one full week. repeat fungal blood cx's obtained 05/16, 05/21 - remain negative to date, reviewed 05/24 source for her fungemia is unknown she does not have any central lines, or recent history of such that I am aware of TTE was normal without any valvular pathology, however, was a limited quality study recent urine cx x 2 without yeast no skin breakdown per nursing CT abd/pelvis was notable for esophageal thickening and colonic distention which are chronic findings, right upper quadrant ultrasound 05/18 with stones and sludge but no evidence of acute cholecystitis she is immunocompromised due to her advanced dementia status, having multiple sclerosis, being on Copaxone, etc. ophthalmologic exam would be ideal but may be extremely difficult to achieve. 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 Bilateral foot MRI with changes bilateral great toes - some minimal marrow edema at distal phalanx with preserved T1 marrow signal c/w osteitis, vs early developing osteomyelitis -discuss MRI with ID tomorrow considered KIRIT to better define duration of treatment, however her family does not want to pursue invasive procedures (2) Acute metabolic encephalopathy: Plan: 2nd to septic shock, fungemia, LLL pneumonia severe hypoactive delirium persists brain MRI as above (3) Coffee ground emesis: Plan: slow gastrointestinal bleeding while being admitted had coffee ground emesis, later in admission black hemoccult+ stools does have prior h/o esophagitis -anticoagulation held -not a candidate for EGD -Hg has drifting down but stable/increased today at 10.0 -continue bid PPI (4) Recurrent deep vein thrombosis (DVT): Plan: typically on coumadin 5mg daily, INR supratherapeutic at 7.4 at time of admission 10mg of vitamin K at time of admission due to coffee-ground emesis -anticoagulation held (5) Multiple sclerosis: Plan: typically on gabapentin 600mg TID, Copaxone daily - all on hold (6) Paraplegia: Plan: acquired, presumably related to multiple sclerosis and dementia by report is nonambulatory (7) Dementia: Plan: severe by report non-ambulatory DNR/DNI status per family she has some remote memory from her childhood, but short-term memory is non-existent. she is usually conversational, however Plan hypokalemia - K normal today. continue 20 meq bid replacement hypomagnesemia replaced septic shock requiring pressors on admission, resolved hypernatremia - resolved Hx ESBL UTI aspiration - cleared for diet by ST starting 05/19 troponin elevation - HS trop 150s, caused by myocardial demand ischemia from septic shock abnormal LFT - ischemic hepatitis related to shock, resolved TATIANA related to sepsis, resolved acute hypoxic respiratory failure related to sepsis and pneumonia, resolved sonVictoriano, updated by phone 05/23 ([phone]) Admission and Anticipated Discharge Date Admission Date: May 15, 2024 Subjective not talking today but seems more alert for me, visually tracking me and nodding yes/no to some questions "no" to pain no events Physical Exam 2 Physical Exam: PHYSICAL EXAMINATION Last 24h vital signs reviewed, see documentation in flowsheet General: lying in bed awake, eyes open HEENT: Normocephalic, atraumatic, pupils round and equal, sclerae anicteric, no conjunctival injection, moist mucus membranes Lungs: Normal respiratory effort. Clear to auscultation bilaterally. No RRW Heart: Regular rate and rhythm, no murmurs. No JVD Abdomen: s/nt/nd no rrg +BT Extremities: warm and well-perfused, bilateral woody 1+ lower extremity edema ulcers tips of great toes are dry covered with eschar- unchanged Neuro: awake but no verbal responses, tracks me visually today and nods yes/no to some quesions, left upper extremity is weak with high tone and some contraction of the fingers, both lower extremities are flaccid, right upper extremity with intact strength Results & Data Results & Data Vital Signs (Past 12 Hours) Vital Signs Temp Pulse Pulse Resp BP BP Pulse Ox 05/24/24 11:31 36.7 C 64 16 135/56 L 98 05/24/24 07:56 63 05/24/24 07:50 36.6 C 67 16 158/79 H 96 05/24/24 03:57 36.8 C 64 18 168/72 H 96 O2 Del Method O2 Flow Rate 05/24/24 11:31 Nasal Cannula 2 05/24/24 07:56 05/24/24 07:50 Nasal Cannula 2 05/24/24 03:57 Nasal Cannula 4 Laboratory Results 05/24/24 06:00 05/24/24 06:00 PG Care Time/CCT Total # of Minutes Spent Total Time Spent with Patient: Total time spent is greater than 50% in coordination of care (as documented) at patient's floor/unit and/or counseling patient: Coding Level of Care Code 88875 SUB INP/OBS CARE 2/35MIN Diagnoses Fungemia B49 Acute metabolic encephalopathy G93.41 Coffee ground emesis K92.0 Recurrent deep vein thrombosis (DVT) I82.409 Multiple sclerosis G35 Paraplegia G82.20 Dementia F03.90
[2024-05-24] MEDS: METOPROLOL SUCC 50MG EXT REL TAB PO SCH (12:48)
[2024-05-24] MEDS: FUROSEMIDE 20 MG TAB PO SCH (13:02)
[2024-05-25 06:03] LABS: Hematocrit (blood only) 33.1 % (37.0-47.0); Hemoglobin 10.2 g/dl (12.0-16.0); Mean Corpuscular Hemoglobin 27.9 pg (25.0-34.0); Mean Corpuscular Hgb Conc 30.8 g/dL (32.0-36.0); Mean Corpuscular Volume 90.4 fL (80.0-100.0); Mean Platelet Volume 10.7 fL (9.4-12.4); Platelet Count 284 K/uL (130-400); RDW Coefficient of Variation 15.2 % (11.5-14.5); RDW Standard Deviation 49.9 fL (36.4-46.3); Red Blood Count 3.66 M/uL (4.20-5.40)
[2024-05-25 06:22] LABS: Creatinine Clr Calc Pharmacy 102.6 ml/min
[2024-05-25 08:09] LABS: BUN Creatinine Ratio 17.4 (10-20); Calcium 8.6 mg/dl (8.6-10.3); Potassium 3.3 mmol/L (3.5-5.1)
[2024-05-25] MEDS: METOPROLOL SUCC 25MG EXT REL TAB PO SCH (08:18)
--- NOTE | 2024-05-25 12:39 | Infectious Disease Progress Nt ---
Date of Service May 25, 2024 Assessment & Plan (1) Fungemia: (2) Dementia: (3) Multiple sclerosis: (4) Acute metabolic encephalopathy: (5) Septic shock: Plan This is an 83-year-old female with a past medical history of multiple sclerosis, esophagitis, trigeminal neuralgia of the left side of the face and left-sided weakness, esophageal reflux, A flutter with RVR, DVTs, ESBL UTIs, who was brought into the ED on [facility] for altered [facility] status. She was recently treated for ESBL E. coli UTI with Macrobid in the prison. Noted to have worsening altered mental status throughout the day. She arrived to the ED via EMS febrile, hypotensive, tachycardic, hypoxic and minimally responsive: BP 73/51, pulse 140, RR 44, temp 39.4, O2 sats 82% on room air. She remained hypotensive despite aggressive fluid resuscitation. She was started on Levophed, vancomycin, Zosyn and admitted to the ICU. Labs: WBC 25.23, platelets 272, BUN 68, creatinine 1.26, lactate 3.3, procalcitonin 1.53. Urine 6-8 10 WBCs. Blood cultures positive for Jaja glabrata on [employer]: 10/23 bottles. Covid, RSv, Influenza PCR negative. Chest x- ray demonstrated peribronchial thickening compatible with infectious/inflammatory airway disease or viral pneumonia. No surya consolidation. Repeat Cx-ray showed a left basilar consolidation. CT abdomen pelvis showed a large amount of poorly formed stool within the rectum. Distention of the distal sigmoid colon and rectum which is chronic: Cholelithiasis without acute cholecystitis. Abdominal ultrasound with no acute abnormalities. Transthoracic cardiogram was a technically difficult study but no significant valvular abnormalities visualized. There patient is obtunded and cannot provide a history. There is no history of hardware, prosthetics. She has no central line/port. She has been started on caspofungin. Infectious disease consulted for fungemia. She is off pressors and her leukocytosis has resolved. Microbiology: Blood cultures 05/15/2024: Yeast not Jaja albicans/dub in 4/4 bottles, Jaja glabrata on BC ID Urine culture 05/15/2024 no growth -Fungal blood culture 05/16/2024 NGTD - Blood culture 05/21 NGTD Antibiotics/antifungals: Vancomycin 05/14 Zosyn 05/14 Meropenem 04/2410/ Caspofungin 05/16ongoing # Septic shock, off pressors # Fungemia # Leukocytosis, improving # Encephalopathy # Acute hypoxic respiratory failure # Multiple sclerosis Discussion:Septic shock in the setting of fungemia of unknown etiology. She does not have an obvious source. No GI or pathology. Abdomen benign. CT abdomen without any acute findings. Urine culture with no significant growth. She has a history of esophagitis but no report of recent dysphagia or issues swallowing. I cannot fully evaluate her oropharynx given her mental status. She has a left ?candidal appearing rash under the Left breast. She has bilateral ulcers of tip of great toes withb L great toe eschar. No hardware/prosthetics. No central lines. BL foot xray with no osteo. R foot MRi with ? early great toe osteo --This may be source of fungemia. Fungal OM usually treated for 6-12 months and source control is needed. Would have podiatry eval for surgical intervention and cx data. MRI head reviewed Family does not want to puruse KIRIT yeast Id reviewed and dose dependant to FLuconazole . S caspofungin. [facility] antifungal therapy will be challenging. Recommendation: Continue Caspofungin 50 mg Iv daily. If repeat Blood culture positive would increase to endocarditis dosin mg Iv daily Podiatry eval Follow up repeat BC and Fungal blood culture She will need an ophthalmologic exam in outpatient Goals of care pending DW team ID will follow Alok Elliott MD, MPH Infectious Disease ID Connect [facility] ID Division Call [phone] with questions Admission and Anticipated Discharge Date Admission Date: May 15, 2024 Subjective This patient recommendation is based on a telemedicine consult request which was completed asynchronously through chart review and information provided by the primary physician. The patient was not seen or examined today. The evaluation is consultative in nature and all patient care and treatment decisions can either be accepted or rejected by the patient's primary hospital-based treating physician using their own independent medical judgment for their patient. Time Spent Reviewing Chart: 31+ minutes Possible R great toe osteo on imaging Results & Data Vital Signs (Past 12 Hours) Vital Signs Temp Pulse Resp BP Pulse Ox O2 Del Method O2 Flow Rate 05/25/24 08:00 Nasal Cannula 2 05/25/24 07:29 36.4 C L 54 L 18 164/82 H 94 Nasal Cannula Laboratory Results Laboratory Results - last 48 hr 05/15/24 05/24/24 05/25/24 00:40 06:00 05:25 WBC 7.41 7.50 RBC 3.55 L 3.66 L Hgb 10.0 L 10.2 L Hct 31.6 L 33.1 L MCV 89.0 90.4 MCH 28.2 27.9 MCHC 31.6 L 30.8 L RDW Std Deviation 49.1 H 49.9 H RDW Coeff of Aparna 15.2 H 15.2 H Plt Count 269 284 MPV 10.5 10.7 Sodium 139 139 Potassium 3.6 3.3 L Chloride 100 99 Carbon Dioxide 33 H 34 H Anion Gap 6 6 BUN 8 8 Creatinine 0.46 L 0.46 L Est Cr Clr Drug Dosing 102.6 102.6 eGFR 93.72 93.72 BUN/Creatinine Ratio 17.4 17.4 Glucose 95 91 Calcium 8.6 8.6 Misc Micro Test See Scanned Report Diagnostic Findings Microbiology 05/15/24 00:40 Blood Aerobic Blood Culture - Final Jaja glabrata complex 05/15/24 00:40 Blood Anaerobic Blood Culture - Final Jaja glabrata complex 05/21/24 11:27 Blood Aerobic Blood Culture - Preliminary No growth in Aerobic bottle after 48 hours. 05/21/24 11:27 Blood Anaerobic Blood Culture - Preliminary No growth in Anaerobic bottle after 48 hours. 05/16/24 17:56 Blood Fungal Smear - Final 05/16/24 17:56 Blood Fungal Culture - Preliminary No yeast or fungus isolated - Report 1, Additional Report to Follow. 05/15/24 00:40 Blood Aerobic Blood Culture - Preliminary Yeast not Jaja albicans/dub 05/15/24 00:40 Blood Anaerobic Blood Culture - Preliminary Yeast not Jaja albicans/dub 05/15/24 03:30 Urine,Indwelling Cath Urine Culture - Final No growth - less than 1,000 colonies/mL. Brain MRI 05/22/24 11:02 EXAM: MR brain wo/w con CLINICAL HISTORY: hx of MS, advanced dementia. no known trauma to head. possible sepsis. injected 8ml zach @ 1725. TECHNIQUE: Different pulse sequences were performed in different planes for the brain without and with GD-DTPA injection. 8ml zach was administered. Images were sent through PACs for interpretation. COMPARISON: prior CT dated 02/22/2024.Prior MRI study dated 04/29/2015. FINDINGS: No hyperacute or acute infarctions could be detected. No definite restricted diffusion to suggest an inflammatory process. Chronic infarction with her cystic gliosis and possible communication with the left lateral ventricle posterior horn. Findings are consistent with chronic infarction sequelae. Altered deep white matter signals are seen at the forceps minor, forceps major, periventricular, and centrum semiovale regions. These exhibit bright signals on T2 and FLAIR WI and intermediate signals on T1 WI. No appreciable enhancement after Gd-DTPA injection. Findings suggest consequences of small vessel disease, e.g., hypertensive and/or diabetic vasculopathy, vs. consequences of demyelinating disease, e.g., multiple sclerosis. Age-appropriate degenerative involutional changes are denoted by symmetrical dilatation of the ventricular system, prominent cortical sulci, Sylvian fissures, cerebellar, vermian folia, and basal cisterns. More widening of the temporal lobes of the lateral ventricles. Most appreciated on the right side, measuring 18 mm, suggesting bilateral temporal lobe atrophy. Downward herniation of the suprasellar cistern through the diaphragma sellae, compressing the pituitary gland against the sellar floor consistent with primary empty sella. Hyperostosis frontalis interna. Right squamous temporal Bone arachnoid granulation. Normal MRI appearance of the cerebellar parenchymal signals. Normal MRI appearance of the central joshua matter aggregates. Normal MRI appearance of different anatomical parts of the brain stem, namely the midbrain, itzel, and medulla oblongata. Normal MRI appearance of the petrous temporal bones, brainstem, vestibule cochlear nerves, and cerebellopontine angles with no definite masses. No shift of midline structures. No intracerebral or extra-axial hematomas or masses. Normal MRI appearance of orbital structures, both globes, optic nerves, optic chiasm, optic tracts, and optic radiations. The scanned paranasal sinuses are unremarkable. Deviation of the nasal septum to the left side. IMPRESSION: 1. No hyperacute or acute infarctions. 2. No intracerebral or extra axial hematoma. 3. No definite current MRI features to suggest an inflammatory process. 4. 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 5. Altered deep white matter signals with anatomical distribution and imaging features consistent with the consequences of small vessel disease, e.g., hypertensive and/or diabetic vasculopathy, vs. consequences of demyelinating disease, e.g., multiple sclerosis. ([place]as, grade 3). 6. Age-appropriate degenerative involutional changes with associating imaging features suggest more atrophy of the temporal lobes, more appreciated on the right side. Correlation with CLINICAL score is recommended. 7. Primary empty sella. 8. Hyperostosis frontalis interna. 9. Right squamous temporal Bone arachnoid granulation. 10. The comparison matches the CT findings and is consistent with a stationary course. Electronically signed by Brandan Guevara 05-22-2024 7:27 PM Foot MRI 05/23/24 00:00 MR foot LT wo/w con HISTORY: 83 years-old Female fungemia, chronic 1st toe wounds, osteo? Cellulitis with bilateral foot pain COMPARISON: Left foot radiographs 05/22/2024 TECHNIQUE: Multiplanar multisequence MRI of the left foot was obtained with and without IV contrast. FINDINGS: Motion degraded exam. Diffuse muscle atrophy with moderate to extensive subcutaneous edema, most pronounced dorsally. No drainable fluid collections. Minimal marrow edema involves the distal aspect of the first distal phalanx with preserved T1 marrow signal. Trace first MTP joint effusion. No acute fracture, dislocation or osseous erosion. No enhancing mass lesions identified. [id number] osteoarthritis. No suspicious enhancement. IMPRESSION: 1. Minimal marrow edema of the first distal phalanx with preserved T1 marrow signal suggestive of osteitis. Early developing osteomyelitis could appear similarly. 2. No osseous erosions identified. 3. Subcutaneous edema may represent cellulitis, venous stasis or lymphedema. 4. No fluid collection to suggest abscess. ACT 112: Negative or not required by law. The above report was generated using voice recognition software. It may contain grammatical, syntax or spelling errors. Electronically signed by: Devaughn López M.D. 05/23/2024 1:47 PM Foot MRI 05/23/24 00:00 MR foot RT wo/w con HISTORY: 83 years-old Female fungemia, chronic 1st toe wounds, osteo? Chronic bilateral foot pain with possible osteomyelitis COMPARISON: Right foot radiographs 05/22/2024 TECHNIQUE: Multiplanar multisequence MRI of the right foot was obtained with and without IV contrast. FINDINGS: Motion degraded exam. There is severe diffuse muscle atrophy. Demineralized appearance of the bones. [id number] multifocal osteoarthritis. No acute fracture, dislocation or osseous erosion identified. Minimal marrow edema of the first distal phalanx with preserved T1 signal. Plantar intramuscular edema of the medial forefoot, likely secondary to denervation change. Subcutaneous edema is most pronounced dorsally. IMPRESSION: 1. Motion degraded exam. 2. Minimal marrow edema of the first distal phalanx with preserved T1 marrow signal suggestive of osteitis. Early developing osteomyelitis could appear similarly. 3. Subcutaneous edema without abscess. 4. Chronic denervation changes with osteoarthritis. ACT 112: Negative or not required by law. The above report was generated using voice recognition software. It may contain grammatical, syntax or spelling errors. Electronically signed by: Devaughn López M.D. 05/23/2024 1:43 PM Medications Administered Home Medications Medication Instructions Recorded Confirmed Last Taken Saccharomyces boulardii 250 mg 250 mg PO BID 02/23/24 05/15/24 05/14/24 16:30 capsule (Florastor) acetaminophen 325 mg tablet 650 mg PO Q6 PRN Fever Or Pain 02/23/24 05/15/24 Unknown (Tylenol) ascorbic acid (vitamin C) 1,000 mg 1 g PO AMHS 02/23/24 05/15/24 05/14/24 20:30 tablet (Vitamin C) bisacodyl 10 mg rectal suppository 10 mg WV HS 02/23/24 05/15/24 05/14/24 20:30 cholecalciferol (vitamin D3) 25 25 mcg PO QAM 02/23/24 05/15/24 05/14/24 08:30 mcg (1,000 unit) tablet (Vitamin D3) citalopram 10 mg tablet 10 mg PO DAILY 02/23/24 05/15/24 05/14/24 08:30 cyanocobalamin (vitamin B-12) 1,000 mcg PO QAM 02/23/24 05/15/24 05/14/24 08:30 1,000 mcg tablet (Vitamin B-12) gabapentin 600 mg tablet 600 mg PO TID 02/23/24 05/15/24 05/14/24 16:30 glatiramer 20 mg/mL subcutaneous 20 mg subcut QAM 02/23/24 05/15/24 05/14/24 08:30 syringe (Copaxone) lip protective (padimate o) 1 ea topical QPM 02/23/24 05/15/24 05/14/24 20:30 methenamine hippurate 1 gram tablet 1 g PO BID 02/23/24 05/15/24 05/14/24 16:30 metoprolol tartrate 25 mg tablet 25 mg PO BID 02/23/24 05/15/24 05/14/24 20:30 multivitamin 1 tab PO QAM 02/23/24 05/15/24 05/14/24 08:30 ondansetron HCl 4 mg tablet 4 mg PO Q8 PRN Nausea 02/23/24 05/15/24 Unknown pantoprazole 40 mg tablet,delayed 40 mg PO QAM 02/23/24 05/15/24 05/14/24 08:30 release polyethylene glycol 3350 17 gram 17 g PO QAM 02/23/24 05/15/24 05/14/24 08:30 oral powder packet (Miralax) potassium chloride 10 mEq 20 meq PO TID 02/23/24 05/15/24 05/14/24 16:30 tablet,extended release sennosides 8.6 mg-docusate sodium 1 tab-cap PO AMHS 02/23/24 05/15/24 05/14/24 20:30 50 mg tablet (Senokot-S) tramadol 50 mg tablet 100 mg PO TID 02/23/24 05/15/24 05/14/24 16:30 warfarin 5 mg tablet 5 mg PO QPM 02/23/24 05/15/24 05/14/24 20:30 Active Medications Generic Name Dose Route Start Last Admin Trade Name Freq PRN Reason Stop Dose Admin Bisacodyl 10 mg 05/20/24 21:00 05/24/24 20:57 Bisacodyl 10 Mg Supp WV 06/19/24 20:59 Not Given HS JAVID Citalopram Hydrobromide 10 mg 05/21/24 09:00 05/25/24 08:19 Citalopram 20 Mg Tab PO 06/20/24 08:59 10 mg DAILY JAVID Administration Enoxaparin Sodium 80 mg 05/19/24 17:00 05/21/24 17:47 Enoxaparin 80 Mg/0.8 Ml Syr SQ 06/18/24 16:59 Not Given Q12H JAVID Furosemide 20 mg 05/24/24 12:30 05/25/24 08:18 Furosemide 20 Mg Tab PO 06/29/24 23:55 20 mg QAM JAVID Administration Caspofungin 50 mg/ Sodium 260 mls @ 260 mls/hr 05/18/24 12:00 05/25/24 09:17 Chloride IV 06/17/24 11:59 Infused DAILY JAVID Infusion Metoprolol Succinate 25 mg 05/25/24 09:00 05/25/24 08:18 Metoprolol Succ 25mg Ext Rel Tab PO 06/24/24 08:59 Not Given QAM JAVID Miconazole Nitrate 1 appln 05/21/24 21:00 05/25/24 08:19 Miconazole Nitrate Powder 85 Gm EXT 06/20/24 20:59 1 appln TID JAVID Administration Pantoprazole Sodium 40 mg 05/21/24 21:00 05/25/24 08:15 Pantoprazole 40 Mg Tab PO 06/20/24 20:59 40 mg BID JAVID Administration Tramadol HCl 25 mg 05/24/24 09:00 05/25/24 08:27 Tramadol Hcl 50 Mg Tablet PO 06/23/24 08:59 Not Given TID JAVID
--- NOTE | 2024-05-25 15:02 | Hospitalist Progress Note ---
Date of Service May 25, 2024 Assessment & Plan (1) Fungemia: Plan: 83-year-old woman with severe dementia and paraplegia related to multiple sclerosis admitted with septic shock. Found to have high-grade candidemia. she is immunocompromised due to her advanced dementia status, having multiple sclerosis, being on Copaxone, etc. all admission blood cx's + for yeast, C. glabrata by molecular assay ID/sensitivities of the yeast has been sent out to [place] repeat fungal blood cx's obtained 05/16, 05/21 - remain negative to date, reviewed 05/25 source for her fungemia is unknown she does not have any central lines, or recent history of such that I am aware of TTE was normal without any valvular pathology, however, was a limited quality study recent urine cx x 2 without yeast no skin breakdown per nursing CT abd/pelvis was notable for esophageal thickening and colonic distention which are chronic findings, right upper quadrant ultrasound 05/18 with stones and sludge but no evidence of acute cholecystitis MRI brain without acute changes of stroke or infectious/inflammatory process, deep white matter signals compatible with MS vs small vessel disease, and old L occipital lobe infarct Bilateral foot MRI with changes bilateral great toes - some minimal marrow edema at distal phalanx with preserved T1 marrow signal c/w osteitis, vs early developing osteomyelitis consulted ID considered KIRIT to better define duration of treatment, however her family does not want to pursue invasive procedures ophthalmologic exam would be ideal but may be extremely difficult to achieve. Discussed MRI findings with ID Dr. Elliott today - toe osteo could be a source of fungemia. Curative treatment would involve amputation of toes, bone culture, 6 weeks IV antifungal I spoke with her son Victoriano today about this. He and his brother prefer to not do invasive procedures/testing because of her overall poor state of health. An additional factor at this time is her persistently poor mental status - she is eating and drinking now, but not interactive and communicative. We discussed options of transition to comfort measures only at this time, finish 14d antifungal for candidemia then focus on comfort after that, vs aggressive care with surgery. He is inclined to comfort measures now but concerned that his brother will not be on board with that and would like to have a consensus, doesn't feel comfortable overriding his brother. We discussed palliative care consultation and he is agreeable to that. (2) Acute metabolic encephalopathy: Plan: 2nd to septic shock, fungemia, LLL pneumonia severe hypoactive delirium persists, slight improvement in past week brain MRI as above (3) Coffee ground emesis: Plan: slow gastrointestinal bleeding while being admitted had coffee ground emesis, later in admission black hemoccult+ stools does have prior h/o esophagitis -anticoagulation held -not a candidate for EGD -Hg has drifting down but Hg stable 10.2 -RN reported ongoing black stool 05/24 -continue bid PPI (4) Recurrent deep vein thrombosis (DVT): Plan: typically on coumadin 5mg daily, INR supratherapeutic at 7.4 at time of admission 10mg of vitamin K at time of admission due to coffee-ground emesis -anticoagulation held (5) Multiple sclerosis: Plan: typically on gabapentin 600mg TID, Copaxone daily - all on hold (6) Paraplegia: Plan: acquired, presumably related to multiple sclerosis and dementia by report is nonambulatory (7) Dementia: Plan: severe by report non-ambulatory DNR/DNI status per family she has some remote memory from her childhood, but short-term memory is non-existent. she is usually conversational, however Plan hypokalemia - K midlly low again 3.3. increased to 40 meq bid replacement hypomagnesemia replaced as well IV today on oral lasix low dose for worsening edema septic shock requiring pressors on admission, resolved hypernatremia - resolved Hx ESBL UTI aspiration - cleared for diet by ST starting 05/19 troponin elevation - HS trop 150s, caused by myocardial demand ischemia from septic shock abnormal LFT - ischemic hepatitis related to shock, resolved TATIANA related to sepsis, resolved acute hypoxic respiratory failure related to sepsis and pneumonia, resolved sonVictoriano, updated by phone 05/23, 05/25 ([phone]) Admission and Anticipated Discharge Date Admission Date: May 15, 2024 Subjective sleeping but aroused to voice loses attention quickly and drifts off with eyes open nods yes/no to a few straightforward questions, opened mouth to command only said "gimme that" and reached for my stethoscope Physical Exam 2 Physical Exam: PHYSICAL EXAMINATION Last 24h vital signs reviewed, see documentation in flowsheet General: appears same HEENT: Normocephalic, atraumatic, pupils round and equal, sclerae anicteric, no conjunctival injection, moist mucus membranes Lungs: Normal respiratory effort. Clear to auscultation bilaterally. No RRW Heart: Regular rate and rhythm, no murmurs. No JVD Abdomen: s/nt/nd no rrg +BT Extremities: warm and well-perfused, bilateral woody 2+ pedal edema improved today, ulcers tips of great toes are dry covered with eschar- unchanged. Tips of R fingers remain purplish but relatively warm today Neuro: awake and inattentive, very limited verbal responses, tracks me visually, nods yes/no to some questions, left upper extremity is weak with high tone and some contraction of the fingers, both lower extremities are flaccid, right upper extremity with intact strength Results & Data Results & Data Vital Signs (Past 12 Hours) Vital Signs Temp Pulse Resp BP Pulse Ox O2 Del Method O2 Flow Rate 05/25/24 08:00 Nasal Cannula 2 05/25/24 07:29 36.4 C L 54 L 18 164/82 H 94 Nasal Cannula Laboratory Results 05/25/24 05:25 05/25/24 05:25 PG Care Time/CCT Total # of Minutes Spent Total Time Spent with Patient: I personally spent: 55 minutes today on clinical care activities including: reviewing chart notes and vital signs reviewing labs discussion with dairy feed sales consultant(s) examining the patient counseling the patient's family writing orders documentation Coding Level of Care Code 53204 SUB INP/OBS CARE 3/50MIN Diagnoses Fungemia B49 Acute metabolic encephalopathy G93.41 Coffee ground emesis K92.0 Recurrent deep vein thrombosis (DVT) I82.409 Multiple sclerosis G35 Paraplegia G82.20 Dementia F03.90
[2024-05-25] MEDS: POTASSIUM CHLORIDE PWD 20 MEQ PACK PO SCH (19:51)
[2024-05-26 09:03] LABS: Hematocrit (blood only) 31.2 % (37.0-47.0); Hemoglobin 9.9 g/dl (12.0-16.0); Mean Corpuscular Hemoglobin 28.3 pg (25.0-34.0); Mean Corpuscular Hgb Conc 31.7 g/dL (32.0-36.0); Mean Corpuscular Volume 89.1 fL (80.0-100.0); Mean Platelet Volume 10.9 fL (9.4-12.4); Platelet Count 312 K/uL (130-400); RDW Coefficient of Variation 15.3 % (11.5-14.5); RDW Standard Deviation 49.8 fL (36.4-46.3); White Blood Count 7.96 K/ul (4.8-10.8)
[2024-05-26 09:31] LABS: Anion Gap 5 (3-11); BUN Creatinine Ratio 16.7 (10-20); Blood Urea Nitrogen 10 mg/dl (6-23); Calcium 8.5 mg/dl (8.6-10.3); Carbon Dioxide 34 mmol/L (21-32); Chloride 100 mmol/L (98-107); Creatinine Clr Calc Pharmacy 78.7 ml/min; Glucose 98 mg/dl (70-99(Fasting)); Magnesium 1.6 mg/dl (1.7-2.4); Sodium 139 mmol/L (136-145)
[2024-05-26 09:39] LABS: T4 Free Thyroxine 1.32 ng/dl (0.61-1.60); Thyroid Stimulating Hormone 1.068 uIu/ml (0.300-4.500)
[2024-05-26] MEDS: MAGNESIUM SULFATE / D5W 1 GM/100 ML BAG IV SCH (10:26)
--- NOTE | 2024-05-26 12:09 | Palliative Care Consultation ---
Date of Consultation May 26, 2024 Assessment & Plan (1) Agitation due to dementia: (2) Weakness: (3) Altered mental status: Altered mental status type: unspecified Qualified Code(s): R41.82 - Altered mental status, unspecified (4) Palliative care by specialist: (5) Advanced care planning/counseling discussion: family meeting for ACP scheduled for tomorrow via [employer] Jessica Otero is inviting you to a scheduled Zoom meeting. Topic: Joan Mckenzie Family Meeting Time: May 27, 2024 10:00 AM Eastern Time ([place] and [place]) Join Zoom Meeting [email or web address] Meeting ID: [id number] (6) Left-sided weakness: (7) Intractable pain: (8) Generalized weakness: (9) Dementia: Plan As above Thank you for allowing us to participate in the ongoing care of this patient. Please page with any additional concerns. Carole Otero DNP Director, Palliative Medicine History of Present Illness Reason for Consultation: On 05/25/24 @ 12:56 Noemy Rubio Wrote To Bri Otero fungemia, severe hypoactive delirium, toe osteo? Attending Physician: Roni Daugherty MD History of Present Illness Joan Mckenzie is an 83yo female with severe dementia and paraplegia related to multiple sclerosis admitted with septic shock. Found to have high-grade candidemia. she is immunocompromised due to her advanced dementia status, MS/on Copaxone. + for yeast, C. glabrata by molecular assay fungemia source unknown, ?toe osteo CT abd/pelvis was notable for esophageal thickening and colonic distention which are chronic findings, right upper quadrant ultrasound 05/18 with stones and sludge but no evidence of acute cholecystitis MRI brain without acute changes of stroke or infectious/inflammatory process, deep white matter signals compatible with MS vs small vessel disease, and old L occipital lobe infarct Bilateral foot MRI with changes bilateral great toes - some minimal marrow edema at distal phalanx with preserved T1 marrow signal c/w osteitis, vs early developing osteomyelitis. Primary team notes they spoke with her son Victoriano on 05/25/24: He and his brother prefer to not do invasive procedures/testing because of her overall poor state of health. An additional factor at this time is her persistently poor mental status - she is eating and drinking now, but not interactive and communicative. We discussed options of transition to comfort measures only at this time, finish 14d antifungal for candidemia then focus on comfort after that, vs aggressive care with surgery. He is inclined to comfort measures now but concerned that his brother will not be on board with that and would like to have a consensus, doesn't feel comfortable overriding his brother. We discussed palliative care consultation and he is agreeable to that. Allergies Allergy/AdvReac Type Severity Reaction Status Date / Time levofloxacin [From Levaquin] Allergy Unknown Unknown Verified 02/23/24 02:49 promethazine Allergy Unknown Verified 02/23/24 02:49 Home Medications Medication Instructions Recorded Confirmed Type Saccharomyces boulardii 250 mg 250 mg PO BID 02/23/24 05/15/24 History capsule (Florastor) acetaminophen 325 mg tablet 650 mg PO Q6 PRN Fever Or Pain 02/23/24 05/15/24 History (Tylenol) ascorbic acid (vitamin C) 1,000 mg 1 g PO AMHS 02/23/24 05/15/24 History tablet (Vitamin C) bisacodyl 10 mg rectal suppository 10 mg MA HS 02/23/24 05/15/24 History cholecalciferol (vitamin D3) 25 25 mcg PO QAM 02/23/24 05/15/24 History mcg (1,000 unit) tablet (Vitamin D3) citalopram 10 mg tablet 10 mg PO DAILY 02/23/24 05/15/24 History cyanocobalamin (vitamin B-12) 1,000 mcg PO QAM 02/23/24 05/15/24 History 1,000 mcg tablet (Vitamin B-12) gabapentin 600 mg tablet 600 mg PO TID 02/23/24 05/15/24 History glatiramer 20 mg/mL subcutaneous 20 mg subcut QAM 02/23/24 05/15/24 History syringe (Copaxone) lip protective (padimate o) 1 ea topical QPM 02/23/24 05/15/24 History methenamine hippurate 1 gram tablet 1 g PO BID 02/23/24 05/15/24 History metoprolol tartrate 25 mg tablet 25 mg PO BID 02/23/24 05/15/24 History multivitamin 1 tab PO QAM 02/23/24 05/15/24 History ondansetron HCl 4 mg tablet 4 mg PO Q8 PRN Nausea 02/23/24 05/15/24 History pantoprazole 40 mg tablet,delayed 40 mg PO QAM 02/23/24 05/15/24 History release polyethylene glycol 3350 17 gram 17 g PO QAM 02/23/24 05/15/24 History oral powder packet (Miralax) potassium chloride 10 mEq 20 meq PO TID 02/23/24 05/15/24 History tablet,extended release sennosides 8.6 mg-docusate sodium 1 tab-cap PO AMHS 02/23/24 05/15/24 History 50 mg tablet (Senokot-S) tramadol 50 mg tablet 100 mg PO TID 02/23/24 05/15/24 History warfarin 5 mg tablet 5 mg PO QPM 02/23/24 05/15/24 History Patient History Medical History Hypokalemia Depression Neurogenic bladder disorder Esophageal reflux History of depression Hx of decubitus ulcer History of closed head injury Hypoglycemia Necrotizing fasciitis Leukocytosis Endotracheally intubated Admitted to intensive care unit Encounter for pre-operative examination Abscess or cellulitis of chest wall Sepsis Catheter-associated urinary tract infection Sepsis Atrial flutter with rapid ventricular response Altered mental status DVT (deep venous thrombosis) [place] grade C esophagitis Esophagitis Thank you for allowing us to participate in the care of this patient. If you should have any further questions or concerns, don't hesitate to contact us at extension [phone] or [phone]. Esophagitis Urinary retention Constipation Fever Abnormal urinalysis SVT (supraventricular tachycardia) Paraplegia Lymphedema of left leg History of multiple sclerosis Multiple sclerosis Left-sided weakness Trigeminal neuralgia of left side of face Surgical History History of craniotomy History of incision and drainage (01/19/22) Left Breast and Chest Wall Incision Drainage and Debridement including soft tissue including muscle greater than 50cm squared(Left) - Hair Mcknight DO, FACS Family History Other Family history non-contributory Social History Smoking Status: Unknown if ever smoked Hx Alcohol Use: No Hx Substance Use: No Preferred Language: Kiswahili Communication Ability: Impaired Communication Ability Comment: patient was able to answer yes or no questions Engineer [employer] Required: No Beliefs That Will Affect Care: Muslim Muslim Beliefs: zoroastrianism marital status: Current Living Situation: [facility] Current Living Situation Comment: Home Health Feels Safe at Home: Yes Assistive Devices: Wheelchair Review of Systems Review of Systems: Unobtainable due to cognitive status Physical Exam Physical Exam: bitemp wasting confused perrla mm sl dry dentition fair normal resp effort, CTA bilat S1S2 Abd soft, NTP BLE 2+ edema, woody texture c.w periph vasc disease Awakens to voice, cannot follow commands no signif verbal response Weakness LUE, BLe weakness diffuse Results & Data Vital Signs (Past 12 Hours) Vital Signs Temp Pulse Resp BP BP Pulse Ox O2 Del Method 05/26/24 11:06 36.3 C L 57 L 14 125/59 L 100 Nasal Cannula 05/26/24 07:31 Nasal Cannula 05/26/24 07:30 36.7 C 67 16 149/81 H 99 Nasal Cannula O2 Flow Rate 05/26/24 11:06 2 05/26/24 07:31 2 05/26/24 07:30 2 Laboratory Results 05/26/24 05/26/24 05/25/24 Range/Units 10:29 08:31 05:25 WBC 7.96 7.50 (4.8-10.8) K/ul RBC 3.50 L 3.66 L (4.20-5.40) M/uL Hgb 9.9 L 10.2 L (12.0-16.0) g/dl Hct 31.2 L 33.1 L (37.0-47.0) % MCV 89.1 90.4 (80.0-100.0) fL MCH 28.3 27.9 (25.0-34.0) pg MCHC 31.7 L 30.8 L (32.0-36.0) g/dL RDW Std Deviation 49.8 H 49.9 H (36.4-46.3) fL RDW Coeff of Aparna 15.3 H 15.2 H (11.5-14.5) % Plt Count 312 284 (130-400) K/uL MPV 10.9 10.7 (9.4-12.4) fL Sodium 139 139 (136-145) mmol/L Potassium 4.0 D TNP 3.3 L (3.5-5.1) mmol/L Chloride 100 99 (98-107) mmol/L Carbon Dioxide 34 H 34 H (21-32) mmol/L Anion Gap 5 6 (3-11) BUN 10 8 (6-23) mg/dl Creatinine 0.60 0.46 L (0.6-1.2) mg/dl Est Cr Clr Drug Dosing 78.7 102.6 ml/min eGFR 87.91 93.72 BUN/Creatinine Ratio 16.7 17.4 (10-20) Glucose 98 91 (70-99(Fasting)) mg/dl POC Glucose (70-99) mg/dl Calcium 8.5 L 8.6 (8.6-10.3) mg/dl Magnesium 1.6 L (1.7-2.4) mg/dl TSH 1.068 (0.300-4.500) uIu/ml Free T4 1.32 (0.61-1.60) ng/dl Stool Occult Bld Scrn (Negative) Misc Micro Test 05/24/24 05/23/24 05/23/24 Range/Units 06:00 06:35 06:05 WBC 7.41 (4.8-10.8) K/ul RBC 3.55 L (4.20-5.40) M/uL Hgb 10.0 L (12.0-16.0) g/dl Hct 31.6 L (37.0-47.0) % MCV 89.0 (80.0-100.0) fL MCH 28.2 (25.0-34.0) pg MCHC 31.6 L (32.0-36.0) g/dL RDW Std Deviation 49.1 H (36.4-46.3) fL RDW Coeff of Aparna 15.2 H (11.5-14.5) % Plt Count 269 (130-400) K/uL MPV 10.5 (9.4-12.4) fL Sodium 139 139 (136-145) mmol/L Potassium 3.6 3.4 L (3.5-5.1) mmol/L Chloride 100 102 (98-107) mmol/L Carbon Dioxide 33 H 33 H (21-32) mmol/L Anion Gap 6 4 (3-11) BUN 8 8 (6-23) mg/dl Creatinine 0.46 L 0.40 L (0.6-1.2) mg/dl Est Cr Clr Drug Dosing 102.6 119.2 ml/min eGFR 93.72 96.93 BUN/Creatinine Ratio 17.4 20.0 (10-20) Glucose 95 87 (70-99(Fasting)) mg/dl POC Glucose (70-99) mg/dl Calcium 8.6 8.2 L (8.6-10.3) mg/dl Magnesium (1.7-2.4) mg/dl TSH (0.300-4.500) uIu/ml Free T4 (0.61-1.60) ng/dl Stool Occult Bld Scrn Positive A (Negative) Misc Micro Test 05/22/24 05/21/24 05/21/24 Range/Units 05:45 14:06 05:50 WBC 7.33 9.25 (4.8-10.8) K/ul RBC 3.38 L 3.57 L (4.20-5.40) M/uL Hgb 9.5 L 10.0 L (12.0-16.0) g/dl Hct 30.2 L 30.8 L (37.0-47.0) % MCV 89.3 86.3 (80.0-100.0) fL MCH 28.1 28.0 (25.0-34.0) pg MCHC 31.5 L 32.5 (32.0-36.0) g/dL RDW Std Deviation 50.0 H 47.4 H (36.4-46.3) fL RDW Coeff of Aparna 15.5 H 15.1 H (11.5-14.5) % Plt Count 272 260 (130-400) K/uL MPV 10.7 11.7 (9.4-12.4) fL Sodium 142 (136-145) mmol/L Potassium 3.0 L 3.6 D (3.5-5.1) mmol/L Chloride 106 (98-107) mmol/L Carbon Dioxide 30 (21-32) mmol/L Anion Gap 6 (3-11) BUN 11 (6-23) mg/dl Creatinine 0.45 L (0.6-1.2) mg/dl Est Cr Clr Drug Dosing 104.6 ml/min eGFR 94.22 BUN/Creatinine Ratio 24.4 H (10-20) Glucose 90 (70-99(Fasting)) mg/dl POC Glucose (70-99) mg/dl Calcium 8.3 L (8.6-10.3) mg/dl Magnesium 1.9 (1.7-2.4) mg/dl TSH (0.300-4.500) uIu/ml Free T4 (0.61-1.60) ng/dl Stool Occult Bld Scrn (Negative) Misc Micro Test 05/21/24 05/19/24 05/15/24 Range/Units 05:45 20:23 00:40 WBC (4.8-10.8) K/ul RBC (4.20-5.40) M/uL Hgb (12.0-16.0) g/dl Hct (37.0-47.0) % MCV (80.0-100.0) fL MCH (25.0-34.0) pg MCHC (32.0-36.0) g/dL RDW Std Deviation (36.4-46.3) fL RDW Coeff of Aparna (11.5-14.5) % Plt Count (130-400) K/uL MPV (9.4-12.4) fL Sodium 144 (136-145) mmol/L Potassium 2.3 L* D (3.5-5.1) mmol/L Chloride 105 (98-107) mmol/L Carbon Dioxide 31 (21-32) mmol/L Anion Gap 8 (3-11) BUN 13 (6-23) mg/dl Creatinine 0.59 L (0.6-1.2) mg/dl Est Cr Clr Drug Dosing 79.8 ml/min eGFR 88.26 BUN/Creatinine Ratio 22.0 H (10-20) Glucose 100 H (70-99(Fasting)) mg/dl POC Glucose 103 H (70-99) mg/dl Calcium 8.4 L (8.6-10.3) mg/dl Magnesium 1.5 L (1.7-2.4) mg/dl TSH (0.300-4.500) uIu/ml Free T4 (0.61-1.60) ng/dl Stool Occult Bld Scrn (Negative) Misc Micro Test See Scanned Report Diagnostic Findings Chest X-Ray 05/14/24 23:28 XR chest 1V portable CLINICAL HISTORY: Sepsis TECHNIQUE: Single frontal radiograph of the chest was obtained. Comparison: Comparison is made to chest radiograph 02/23/2024 FINDINGS: No lines and tubes are seen. Peribronchial thickening is noted. The lungs are clear. No evidence of pleural effusion or pneumothorax. IMPRESSION: Peribronchial thickening is seen compatible with infectious/inflammatory airways disease or viral pneumonia. No surya consolidation is seen. ACT 112: Negative or not required by law. Electronically signed by: Ted Armstrong M.D. 05/15/2024 6:51 AM Chest X-Ray 05/15/24 06:30 XR chest 1V portable CLINICAL HISTORY: eval lung doll TECHNIQUE: Single frontal radiograph of the chest was obtained. Comparison: Comparison is made to chest radiograph 05/14/2024 FINDINGS: No lines and tubes are seen. Calcified aortic knob is seen. Bibasilar atelectasis is seen. No evidence of pleural effusion or pneumothorax. IMPRESSION: Bibasilar atelectasis is seen. No evidence of consolidation is definitely seen. ACT 112: Negative or not required by law. Electronically signed by: Ted Armstrong M.D. 05/15/2024 6:58 AM Chest X-Ray 05/16/24 11:23 SINGLE VIEW CHEST CLINICAL HISTORY: Sepsis FINDINGS: An AP, portable, upright chest radiograph is compared to study dated 05/15/2024 and correlated with chest CT dated 02/22/2024. The examination is significantly degraded by portable technique and patient rotation. The heart is enlarged and noted atherosclerotic calcification of the thoracic aorta. The pulmonary vasculature is noncongested. Emphysema and chronic interstitial thickening is similar to previous. Airspace consolidation is seen at the left lung base. Scar/atelectasis is noted at the right lung base. No large pleural effusion or pneumothorax is identified. The skeletal structures are osteopenic. The bony thorax is grossly intact. Degenerative change is noted in the thoracic spine. IMPRESSION: 1. Cardiomegaly and emphysema without radiographic evidence of congestive failure. 2. There is left basilar consolidation. Correlate clinically for evidence of pneumonia/aspiration place. Radiographic follow-up to resolution is recommended ACT 112: Negative or not required by law. Electronically signed by: Issac Rebolledo M.D. 05/16/2024 1:07 PM Abdomen/Pelvis CT 05/17/24 15:19 CT OF THE ABDOMEN AND PELVIS WITH CONTRAST CLINICAL HISTORY: fungemia, source uncertain; eval intra-abd path COMPARISON STUDY: CT of the abdomen and pelvis February 22, 2024. TECHNIQUE: Following IV administration of 94 mL of Optiray, axial images of the abdomen and pelvis were obtained from the lung bases to the proximal femurs. Images were reviewed in the axial, sagittal, and coronal planes. IV contrast was administered without complication. Automated exposure control was utilized for the study. A dose lowering technique was utilized adhering to the principles of ALARA. CT DOSE: 1741.22 mGy.cm FINDINGS: Visualized portions of the lung bases demonstrate trace bilateral pleural effusions. Subpleural opacities within the lower lobes and lingula are present. The heart is mildly enlarged. No pneumatosis, free air or portal venous gas is present. There is a small hiatal hernia. There is hepatic steatosis. No hepatic lesions are present. The gallbladder is mildly distended. There are layering gallstones within the gallbladder. There is no pericholecystic infiltration. Spleen, adrenal glands and pancreas are unremarkable. There is marked bilateral renal atrophy. Left upper pole renal cyst is present. A few subcentimeter renal lesions are too small to characterize. There is no hydronephrosis. There is no evidence for a bowel obstruction. Colonic diverticulosis without evidence for acute diverticulitis. A large amount of poorly formed stool within the rectum is noted. Distention of the rectum and distal sigmoid colon is noted. There is no evidence for a bowel obstruction. Mild presacral stranding is similar to prior exam. Laxity of the anterior abdominal wall is again noted. A [place] balloon and gas within the bladder present. Mild body wall edema. No fluid collections within the abdomen or pelvis. IMPRESSION: 1. Trace bilateral pleural effusions with bilateral lower lobe and lingular airspace opacities, partially imaged on this exam. The findings could reflect atelectasis, pneumonia or aspiration pneumonitis. 2. Large amount of poorly formed stool within the rectum. Distention of the distal sigmoid colon and rectum, similar to prior exams. This is likely chronic. No evidence for a bowel obstruction. No bowel wall thickening. 3. Colonic diverticulosis. No evidence for acute diverticulitis. 4. Cholelithiasis with mild gallbladder distention. No convincing evidence for acute cholecystitis. ACT 112: Negative or not required by law. Electronically signed by: Naga Genao M.D. 05/17/2024 5:59 PM Gallbladder Ultrasound 05/19/24 00:00 US gallbladder CLINICAL HISTORY: sepsis, fungemia, gallstones; r/o cholecystitis TECHNIQUE: Multiple real-time sonographic images of the right upper quadrant were obtained. Comparison: Comparison is made to CT abdomen pelvis 05/17/2024 FINDINGS: The liver is diffusely echogenic in appearance with poor ultrasound penetration, with normal contour, which is consistent with fatty infiltration. No focal mass lesions are seen. No intrahepatic ductal dilatation is seen. Linear hyperechoic foci with posterior shadowing are identified layering dependently within the gallbladder, which are consistent with gallstones. Gallbladder sludge is also seen. The gallbladder wall is not thickened. There is no pericholecystic fluid present. A sonographic Eller's sign was not elicited by the sheet finisher. The common duct measures 0.4 cm in diameter at the level of the hepatic artery. The visualized portions of the pancreas appear normal. The right kidney shows normal echogenicity, cortical thickness and renal contour. The right kidney shows no evidence of hydronephrosis or mass. No ascites or free fluid is seen in Beasley's pouch. IMPRESSION: 1. No acute abnormalities and in particular no evidence of acute cholecystitis. 2. No evidence of acute cholecystitis. ACT 112: Negative or not required by law. Electronically signed by: Ted Armstrong M.D. 05/19/2024 8:58 AM Foot X-Ray 05/22/24 07:34 XR foot RT 2V CLINICAL HISTORY: foot ulcers (tip great toes), fungemia COMPARISON: None FINDINGS: Alignment of the left foot is anatomic. Tarsometatarsal joints are intact. There is osteopenia. There are no fractures. No bony erosion is identified. There is a bandage on the left great toe. There are plantar and posterior calcaneal spurs. Moderate mid foot osteoarthritis is present. IMPRESSION: No fractures within the left foot. No radiographic evidence for acute osteomyelitis. ACT 112: Negative or not required by law. Electronically signed by: Naga Genao M.D. 05/22/2024 8:28 AM Foot X-Ray 05/22/24 07:34 XR foot LT 2V HISTORY: 83 years-old Female foot ulcers (tip great toes), fungemia soft tissue edema with possible osteomyelitis COMPARISON: Right foot radiograph same day, left foot radiographs 02/06/2015 TECHNIQUE: 2 views of the left foot FINDINGS: Demineralized appearance of the bones. Diffuse soft tissue swelling moderate to marked within the forefoot. Arterial calcifications. Multifocal osteoarthritis which is moderate within the mid foot and hind foot and probably mild within the forefoot. There is a soft tissue ulcer involving the distal great toe. No definite acute fracture, dislocation or osseous identified. IMPRESSION: 1. Soft tissue swelling also the distal great toe. 2. No acute fracture, dislocation or definite osseous erosion identified at this time. If there is further clinical concern, MRI may be considered. ACT 112: Negative or not required by law. The above report was generated using voice recognition software. It may contain grammatical, syntax or spelling errors. Electronically signed by: Devaughn López M.D. 05/22/2024 8:21 AM Brain MRI 05/22/24 11:02 EXAM: MR brain wo/w con CLINICAL HISTORY: hx of MS, advanced dementia. no known trauma to head. possible sepsis. injected 8ml zach @ 1725. TECHNIQUE: Different pulse sequences were performed in different planes for the brain without and with GD-DTPA injection. 8ml zach was administered. Images were sent through PACs for interpretation. COMPARISON: prior CT dated 02/22/2024.Prior MRI study dated 04/29/2015. FINDINGS: No hyperacute or acute infarctions could be detected. No definite restricted diffusion to suggest an inflammatory process. Chronic infarction with her cystic gliosis and possible communication with the left lateral ventricle posterior horn. Findings are consistent with chronic infarction sequelae. Altered deep white matter signals are seen at the forceps minor, forceps major, periventricular, and centrum semiovale regions. These exhibit bright signals on T2 and FLAIR WI and intermediate signals on T1 WI. No appreciable enhancement after Gd-DTPA injection. Findings suggest consequences of small vessel disease, e.g., hypertensive and/or diabetic vasculopathy, vs. consequences of demyelinating disease, e.g., multiple sclerosis. Age-appropriate degenerative involutional changes are denoted by symmetrical dilatation of the ventricular system, prominent cortical sulci, Sylvian fissures, cerebellar, vermian folia, and basal cisterns. More widening of the temporal lobes of the lateral ventricles. Most appreciated on the right side, measuring 18 mm, suggesting bilateral temporal lobe atrophy. Downward herniation of the suprasellar cistern through the diaphragma sellae, compressing the pituitary gland against the sellar floor consistent with primary empty sella. Hyperostosis frontalis interna. Right squamous temporal Bone arachnoid granulation. Normal MRI appearance of the cerebellar parenchymal signals. Normal MRI appearance of the central joshua matter aggregates. Normal MRI appearance of different anatomical parts of the brain stem, namely the midbrain, itzel, and medulla oblongata. Normal MRI appearance of the petrous temporal bones, brainstem, vestibule cochlear nerves, and cerebellopontine angles with no definite masses. No shift of midline structures. No intracerebral or extra-axial hematomas or masses. Normal MRI appearance of orbital structures, both globes, optic nerves, optic chiasm, optic tracts, and optic radiations. The scanned paranasal sinuses are unremarkable. Deviation of the nasal septum to the left side. IMPRESSION: 1. No hyperacute or acute infarctions. 2. No intracerebral or extra axial hematoma. 3. No definite current MRI features to suggest an inflammatory process. 4. 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 5. Altered deep white matter signals with anatomical distribution and imaging features consistent with the consequences of small vessel disease, e.g., hypertensive and/or diabetic vasculopathy, vs. consequences of demyelinating disease, e.g., multiple sclerosis. ([place], grade 3). 6. Age-appropriate degenerative involutional changes with associating imaging features suggest more atrophy of the temporal lobes, more appreciated on the right side. Correlation with CLINICAL score is recommended. 7. Primary empty sella. 8. Hyperostosis frontalis interna. 9. Right squamous temporal Bone arachnoid granulation. 10. The comparison matches the CT findings and is consistent with a stationary course. Electronically signed by Brandan Guevara 05-22-2024 7:27 PM Foot MRI 05/23/24 00:00 MR foot LT wo/w con HISTORY: 83 years-old Female fungemia, chronic 1st toe wounds, osteo? Cellulitis with bilateral foot pain COMPARISON: Left foot radiographs 05/22/2024 TECHNIQUE: Multiplanar multisequence MRI of the left foot was obtained with and without IV contrast. FINDINGS: Motion degraded exam. Diffuse muscle atrophy with moderate to extensive subcutaneous edema, most pronounced dorsally. No drainable fluid collections. Minimal marrow edema involves the distal aspect of the first distal phalanx with preserved T1 marrow signal. Trace first MTP joint effusion. No acute fracture, dislocation or osseous erosion. No enhancing mass lesions identified. [id number] osteoarthritis. No suspicious enhancement. IMPRESSION: 1. Minimal marrow edema of the first distal phalanx with preserved T1 marrow signal suggestive of osteitis. Early developing osteomyelitis could appear similarly. 2. No osseous erosions identified. 3. Subcutaneous edema may represent cellulitis, venous stasis or lymphedema. 4. No fluid collection to suggest abscess. ACT 112: Negative or not required by law. The above report was generated using voice recognition software. It may contain grammatical, syntax or spelling errors. Electronically signed by: Devaughn López M.D. 05/23/2024 1:47 PM Foot MRI 05/23/24 00:00 MR foot RT wo/w con HISTORY: 83 years-old Female fungemia, chronic 1st toe wounds, osteo? Chronic bilateral foot pain with possible osteomyelitis COMPARISON: Right foot radiographs 05/22/2024 TECHNIQUE: Multiplanar multisequence MRI of the right foot was obtained with and without IV contrast. FINDINGS: Motion degraded exam. There is severe diffuse muscle atrophy. Demineralized appearance of the bones. [id number] multifocal osteoarthritis. No acute fracture, dislocation or osseous erosion identified. Minimal marrow edema of the first distal phalanx with preserved T1 signal. Plantar intramuscular edema of the medial forefoot, likely secondary to denervation change. Subcutaneous edema is most pronounced dorsally. IMPRESSION: 1. Motion degraded exam. 2. Minimal marrow edema of the first distal phalanx with preserved T1 marrow signal suggestive of osteitis. Early developing osteomyelitis could appear similarly. 3. Subcutaneous edema without abscess. 4. Chronic denervation changes with osteoarthritis. ACT 112: Negative or not required by law. The above report was generated using voice recognition software. It may contain grammatical, syntax or spelling errors. Electronically signed by: Devaughn López M.D. 05/23/2024 1:43 PM PG Care Time/CCT Total # of Minutes Spent Total Time Spent with Patient: Total time spent is greater than 50% in coordination of care (as documented) at patient's floor/unit and/or counseling patient: I spent 70 minutes overall addressing this case: 15 min in medical data review/discussion with referring provider(s) and/or preparation for the visit 15 min in direct interaction with the patient/exam 10 min in Advance Care Planning/Goals of Care discussions as detailed above in note (must be >16min) spoke with family to coordinate meeting time 15 min in subsequent review and synthesis of assessment and plan 15 min communicating with other providers regarding the patient's case: [place] [address] IN/OBS CONSULT LVL 4,60M Patient Type New History Comprehensive Exam Comprehensive Diagnoses Agitation due to dementia F03.911 Weakness R53.1 Altered mental status R41.82 Altered mental status type: unspecified Palliative care by specialist Z51.5 Advanced care planning/counseling discussion Z71.89 Left-sided weakness R53.1 Intractable pain R52 Dementia F03.90
--- NOTE | 2024-05-26 12:27 | Communication Note ---
Date of Service: May 26, 2024 [facility] brief note Family meeting tomorrow 05/27 at 10am by [facility] [place] due to family's needs - Victoriano is disabled and cannot drive and Braden works in [email or web address] and has limited availability Jessica Otero is inviting you to a scheduled Zoom meeting. Topic: Joan Mckenzie Family Meeting Time: May 27, 2024 10:00 AM Eastern Time ([place] and [place]) Join Zoom Meeting [id number] Meeting ID: [id number] Thank you for allowing us to participate in the ongoing care of this patient. Please page with any additional concerns. Carole Otero DNP Director, Palliative Medicine
--- NOTE | 2024-05-26 16:40 | Infectious Disease Progress Nt ---
Date of Service May 26, 2024 Assessment & Plan (1) Fungemia: (2) Dementia: (3) Multiple sclerosis: (4) Acute metabolic encephalopathy: (5) Septic shock: Plan This is an 83-year-old female with a past medical history of multiple sclerosis, esophagitis, trigeminal neuralgia of the left side of the face and left-sided weakness, esophageal reflux, A flutter with RVR, DVTs, ESBL UTIs, who was brought into the ED on 05/14/24 from her alf for altered mental status. She was recently treated for ESBL E. coli UTI with Macrobid in the alf. Noted to have worsening altered mental status throughout the day. She arrived to the ED via EMS febrile, hypotensive, tachycardic, hypoxic and minimally responsive: BP 73/51, pulse 140, RR 44, temp 39.4, O2 sats 82% on room air. She remained hypotensive despite aggressive fluid resuscitation. She was started on Levophed, vancomycin, Zosyn and admitted to the ICU. Labs: WBC 25.23, platelets 272, BUN 68, creatinine 1.26, lactate 3.3, procalcitonin 1.53. Urine 6-8 10 WBCs. Blood cultures positive for Jaja glabrata on [employer]: 10/23 bottles. Covid, RSv, Influenza PCR negative. Chest x- ray demonstrated peribronchial thickening compatible with infectious/inflammatory airway disease or viral pneumonia. No surya consolidation. Repeat Cx-ray showed a left basilar consolidation. CT abdomen pelvis showed a large amount of poorly formed stool within the rectum. Distention of the distal sigmoid colon and rectum which is chronic: Cholelithiasis without acute cholecystitis. Abdominal ultrasound with no acute abnormalities. Transthoracic cardiogram was a technically difficult study but no significant valvular abnormalities visualized. There patient is obtunded and cannot provide a history. There is no history of hardware, prosthetics. She has no central line/port. She has been started on caspofungin. Infectious disease consulted for fungemia. She is off pressors and her leukocytosis has resolved. Microbiology: Blood cultures 05/15/2024: Yeast not Jaja albicans/dub in 4/4 bottles, Jaja glabrata on BC ID Urine culture 05/15/2024 no growth -Fungal blood culture 05/16/2024 NGTD - Blood culture 05/21 NGTD Antibiotics/antifungals: Vancomycin 05/14 Zosyn 05/14 Meropenem 04/2410/ Caspofungin 05/16ongoing # Septic shock, off pressors # Fungemia # Leukocytosis,resolved # Encephalopathy # Acute hypoxic respiratory failure # Multiple sclerosis Discussion:Septic shock in the setting of fungemia of unknown etiology. Resolved She does not have an obvious source. No GI or pathology. Abdomen benign. CT abdomen without any acute findings. Urine culture with no significant growth. She has a history of esophagitis but no report of recent dysphagia or issues swallowing. I cannot fully evaluate her oropharynx given her mental status. She has a left ?candidal appearing rash under the Left breast. She has bilateral ulcers of tip of great toes with b L great toe eschar. No hardware/prosthetics. No central lines. BL foot xray with no osteo. R foot MRi with ? early great toe osteo --This may be source of fungemia. Fungal OM usually treated for 6-12 months and source control is needed. Would have podiatry eval for surgical intervention and cx data. MRI head reviewed. No acute findings to explain fungemia or sequelea. Family does not want to pursue KIRIT at this time yeast Id reviewed and dose dependant to FLuconazole . S caspofungin. half-way antifungal therapy will be challenging. Recommendation: Continue Caspofungin 50 mg Iv daily. If repeat Blood culture positive would increase to endocarditis dosin mg Iv daily Podiatry eval if family decides on intervention Follow up repeat BC and Fungal blood culture She will need an ophthalmologic exam in outpatient Goals of care pending ID will follow Alok Elliott MD, MPH Infectious Disease ID Connect [facility], ID Division Call [phone] with questions Admission and Anticipated Discharge Date Admission Date: May 15, 2024 Subjective This patient recommendation is based on a telemedicine consult request which was completed asynchronously through chart review and information provided by the primary physician. The patient was not seen or examined today. The evaluation is consultative in nature and all patient care and treatment decisions can either be accepted or rejected by the patient's primary hospital-based treating physician using their own independent medical judgment for their patient. Time Spent Reviewing Chart: 11 - 20 minutes Goals of care discussion ongoing Results & Data Vital Signs (Past 12 Hours) Vital Signs Temp Pulse Resp BP BP Pulse Ox O2 Del Method 05/26/24 12:20 36.7 C 57 L 14 131/76 99 Nasal Cannula 05/26/24 11:06 36.3 C L 57 L 14 125/59 L 100 Nasal Cannula 05/26/24 07:31 Nasal Cannula 05/26/24 07:30 36.7 C 67 16 149/81 H 99 Nasal Cannula O2 Flow Rate 05/26/24 12:20 2 05/26/24 11:06 2 05/26/24 07:31 2 05/26/24 07:30 2 Laboratory Results Short CBC 05/26/24 Range/Units 08:31 WBC 7.96 (4.8-10.8) K/ul Hgb 9.9 L (12.0-16.0) g/dl Hct 31.2 L (37.0-47.0) % Plt Count 312 (130-400) K/uL BMP 05/26/24 05/26/24 08:31 10:29 Sodium 139 Potassium TNP 4.0 D Chloride 100 Carbon Dioxide 34 H BUN 10 Creatinine 0.60 Glucose 98 Calcium 8.5 L Diagnostic Findings Microbiology 05/21/24 11:27 Blood Aerobic Blood Culture - Final No growth in Aerobic bottle after 5 days. 05/21/24 11:27 Blood Anaerobic Blood Culture - Final No growth in Anaerobic bottle after 5 days. 05/15/24 00:40 Blood Aerobic Blood Culture - Final Jaja glabrata complex 05/15/24 00:40 Blood Anaerobic Blood Culture - Final Jaja glabrata complex 05/16/24 17:56 Blood Fungal Smear - Final 05/16/24 17:56 Blood Fungal Culture - Preliminary No yeast or fungus isolated - Report 1, Additional Report to Follow. 05/15/24 00:40 Blood Aerobic Blood Culture - Preliminary Yeast not Jaja albicans/dub 05/15/24 00:40 Blood Anaerobic Blood Culture - Preliminary Yeast not Jaja albicans/dub 05/15/24 03:30 Urine,Indwelling Cath Urine Culture - Final No growth - less than 1,000 colonies/mL. Medications Administered Home Medications Medication Instructions Recorded Confirmed Last Taken Saccharomyces boulardii 250 mg 250 mg PO BID 02/23/24 05/15/24 05/14/24 16:30 capsule (Florastor) acetaminophen 325 mg tablet 650 mg PO Q6 PRN Fever Or Pain 02/23/24 05/15/24 Unknown (Tylenol) ascorbic acid (vitamin C) 1,000 mg 1 g PO AMHS 02/23/24 05/15/24 05/14/24 20:30 tablet (Vitamin C) bisacodyl 10 mg rectal suppository 10 mg CO HS 02/23/24 05/15/24 05/14/24 20:30 cholecalciferol (vitamin D3) 25 25 mcg PO QAM 02/23/24 05/15/24 05/14/24 08:30 mcg (1,000 unit) tablet (Vitamin D3) citalopram 10 mg tablet 10 mg PO DAILY 02/23/24 05/15/24 05/14/24 08:30 cyanocobalamin (vitamin B-12) 1,000 mcg PO QAM 02/23/24 05/15/24 05/14/24 08:30 1,000 mcg tablet (Vitamin B-12) gabapentin 600 mg tablet 600 mg PO TID 02/23/24 05/15/24 05/14/24 16:30 glatiramer 20 mg/mL subcutaneous 20 mg subcut QAM 02/23/24 05/15/24 05/14/24 08:30 syringe (Copaxone) lip protective (padimate o) 1 ea topical QPM 02/23/24 05/15/24 05/14/24 20:30 methenamine hippurate 1 gram tablet 1 g PO BID 02/23/24 05/15/24 05/14/24 16:30 metoprolol tartrate 25 mg tablet 25 mg PO BID 02/23/24 05/15/24 05/14/24 20:30 multivitamin 1 tab PO QAM 02/23/24 05/15/24 05/14/24 08:30 ondansetron HCl 4 mg tablet 4 mg PO Q8 PRN Nausea 02/23/24 05/15/24 Unknown pantoprazole 40 mg tablet,delayed 40 mg PO QAM 02/23/24 05/15/24 05/14/24 08:30 release polyethylene glycol 3350 17 gram 17 g PO QAM 02/23/24 05/15/24 05/14/24 08:30 oral powder packet (Miralax) potassium chloride 10 mEq 20 meq PO TID 02/23/24 05/15/24 05/14/24 16:30 tablet,extended release sennosides 8.6 mg-docusate sodium 1 tab-cap PO AMHS 02/23/24 05/15/24 05/14/24 20:30 50 mg tablet (Senokot-S) tramadol 50 mg tablet 100 mg PO TID 02/23/24 05/15/24 05/14/24 16:30 warfarin 5 mg tablet 5 mg PO QPM 02/23/24 05/15/24 05/14/24 20:30 Active Medications Generic Name Dose Route Start Last Admin Trade Name Fredamari PRN Reason Stop Dose Admin Bisacodyl 10 mg 05/20/24 21:00 05/25/24 19:51 Bisacodyl 10 Mg Supp CO 06/19/24 20:59 10 mg HS JAVID Administration Citalopram Hydrobromide 10 mg 05/21/24 09:00 05/26/24 07:59 Citalopram 20 Mg Tab PO 06/20/24 08:59 10 mg DAILY JAVID Administration Enoxaparin Sodium 80 mg 05/19/24 17:00 05/21/24 17:47 Enoxaparin 80 Mg/0.8 Ml Syr SQ 06/18/24 16:59 Not Given Q12H JAVID Furosemide 20 mg 05/24/24 12:30 05/26/24 07:59 Furosemide 20 Mg Tab PO 06/29/24 23:55 20 mg QAM JAVID Administration Caspofungin 50 mg/ Sodium 260 mls @ 260 mls/hr 05/18/24 12:00 05/26/24 09:31 Chloride IV 06/17/24 11:59 Infused DAILY JAVID Infusion Metoprolol Succinate 25 mg 05/25/24 09:00 05/26/24 07:59 Metoprolol Succ 25mg Ext Rel Tab PO 06/24/24 08:59 25 mg QAM JAVID Administration Miconazole Nitrate 1 appln 05/21/24 21:00 05/26/24 13:00 Miconazole Nitrate Powder 85 Gm EXT 06/20/24 20:59 1 appln TID JAVID Administration Pantoprazole Sodium 40 mg 05/21/24 21:00 05/26/24 07:59 Pantoprazole 40 Mg Tab PO 06/20/24 20:59 40 mg BID JAVID Administration Potassium Chloride 40 meq 05/25/24 21:00 05/26/24 07:59 Potassium Chloride Pwd 20 Meq Pack PO 06/24/24 20:59 40 meq BID JAVID Administration Tramadol HCl 25 mg 05/24/24 09:00 05/26/24 13:00 Tramadol Hcl 50 Mg Tablet PO 06/23/24 08:59 25 mg TID JAVID Administration
--- NOTE | 2024-05-26 18:52 | Hospitalist Progress Note ---
Date of Service May 26, 2024 Assessment & Plan (1) Fungemia: Plan: all admission blood cx's + for evita glabrata remains on caspofungin IV - day #11 of such [facility] sensitivities came back - dose dependant to Fluconazole; sensitive to caspofungin repeat fungal blood cx's obtained 05/16 - negative additional blood cx's - 05/21 - negative source for fungemia - b/l great toe skin ulcers/eschars with underlying osteomyelitis?? recent urine cx x 2 without yeast no significant skin breakdown per nursing CT abd/pelvis without pathology that would lead to fungemia RUQ u/s without cholecystitis MRI brain without any source for fungal infection echo without endocarditis she is immunocompromised due to her advanced dementia status, having multiple sclerosis, being on Copaxone, etc. Dr Otero to meet with her family tomorrow to discuss goals of care that meeting will dictate where we go from here with her IV antifungals (2) Septic shock: Plan: source - lung (LLL pneumonia), fungemia s/p full course of IV abx for her LLL pneumonia - now off remain ons IV Caspofungin for fungemia (see above) levophed weaned off 05/15/24 cortisol level >60; thus, deferred on IV hydrocortisone (3) Acute respiratory failure with hypoxia: Plan: 2nd to LLL pneumonia remains on minimal amount of NC O2 (4) Aspiration into lower respiratory tract: Plan: seen by speech therapy; cleared for minced/moist diet (5) UTI due to extended-spectrum beta lactamase (ESBL) producing Escherichia coli: Plan: history of urine cx negative this admission, however (6) Supratherapeutic INR: Plan: INR 7.4 at peak resolved all forms of anticoagulation have been stopped due to melena appearing stools H/H remain stable, however (10/30 range, respectively) (7) Hypernatremia: Plan: resolved (8) Recurrent deep vein thrombosis (DVT): Plan: noted typically on coumadin 5mg daily for such INR supratherapeutic at 7.4 at time of admission now <2 s/p total of 10mg of vitamin K at time of admission due to coffee-ground emesis (by report) there have been reports of melena stool thus all forms of anticoagulation have been held at very high risk of VTE due to bed-bound status -- goals of care discussion tomorrow will be important to determine what to do with her anticoagulation (9) Acute kidney injury: Plan: Peak Cr 1.67 Cr now <1 resolved TATIANA was 2nd to septic shock (sepsis-associated ATN) (10) Acute metabolic encephalopathy: Plan: 2nd to septic shock, fungemia, LLL pneumonia, etc. although she is more awake, taking some nutrition, smiling at times - she is not offering conversation or talking or answering questions just staring at the wall (11) Multiple sclerosis: Plan: typically on gabapentin 600mg TID, Copaxone daily - all on hold (12) Coffee ground emesis: Plan: had such earlier in the admission does have prior h/o esophagitis remains on PPI twice daily (13) Paraplegia: Plan: acquired, 2nd to MS? 2nd to dementia? by report is nonambulatory (14) Dementia: Plan: severe non-ambulatory DNR/DNI status with superimposed delirium (15) Elevated LFTs: Plan: uncertain etiology but ast/alt have normalized (16) Elevated troponin: Plan: peak HS troponin 155 this was likely 2nd to myocardial demand ischemia in the setting of septic shock Plan Dr Otero to meet by phone with pt's 2 sons to refine goals of care in light of poor prognosis Admission and Anticipated Discharge Date Admission Date: May 15, 2024 Subjective patient with eyes open upon my arrival she reaches out her arm as I approach her I say hello and she smiles, but otherwise does not speak or offer any conversa tion when asked how she is feeling she simply stares ahead unable to offer any meaningful history or ROS nursing flowsheets report <50% of meal intake Review of Systems Review of Systems: Unobtainable due to cognitive status Physical Exam Physical Exam: gen - laying in bed, more awake than my previous visit with her over a week ago but still unable to offer history or have meaningful conversation neck - no JVD mouth - MM look slightly dry heart - RRR, s1 s2, no murmur lungs - CTA b/l anteriorly, decreased BS bases abd - soft NT ND BS+ ext - pulses 1-2+ b/l feet, no edema psych - a/o to person only neuro - increased tone x 4 exts skin - b/l first toes on distal sylvie - eschars - black on left, brown on right; no drainage or foul odor Results & Data Results & Data Vital Signs (Past 12 Hours) Vital Signs Temp Pulse Resp BP BP Pulse Ox O2 Del Method 05/26/24 12:20 36.7 C 57 L 14 131/76 99 Nasal Cannula 05/26/24 11:06 36.3 C L 57 L 14 125/59 L 100 Nasal Cannula 05/26/24 07:31 Nasal Cannula 05/26/24 07:30 36.7 C 67 16 149/81 H 99 Nasal Cannula O2 Flow Rate 05/26/24 12:20 2 05/26/24 11:06 2 05/26/24 07:31 2 05/26/24 07:30 2 Laboratory Results Laboratory Results - last 24 hr 05/26/24 05/26/24 08:31 10:29 WBC 7.96 RBC 3.50 L Hgb 9.9 L Hct 31.2 L MCV 89.1 MCH 28.3 MCHC 31.7 L RDW Std Deviation 49.8 H RDW Coeff of Aparna 15.3 H Plt Count 312 MPV 10.9 Sodium 139 Potassium TNP 4.0 D Chloride 100 Carbon Dioxide 34 H Anion Gap 5 BUN 10 Creatinine 0.60 Est Cr Clr Drug Dosing 78.7 eGFR 87.91 BUN/Creatinine Ratio 16.7 Glucose 98 Calcium 8.5 L Magnesium 1.6 L TSH 1.068 Free T4 1.32 Diagnostic Findings Microbiology 05/21/24 11:27 Blood Aerobic Blood Culture - Final No growth in Aerobic bottle after 5 days. 05/21/24 11:27 Blood Anaerobic Blood Culture - Final No growth in Anaerobic bottle after 5 days. 05/15/24 00:40 Blood Aerobic Blood Culture - Final Evita glabrata complex 05/15/24 00:40 Blood Anaerobic Blood Culture - Final Evita glabrata complex 05/16/24 17:56 Blood Fungal Smear - Final 05/16/24 17:56 Blood Fungal Culture - Preliminary No yeast or fungus isolated - Report 1, Additional Report to Follow. 05/15/24 00:40 Blood Aerobic Blood Culture - Preliminary Yeast not Evita albicans/dub 05/15/24 00:40 Blood Anaerobic Blood Culture - Preliminary Yeast not Evita albicans/dub 05/15/24 03:30 Urine,Indwelling Cath Urine Culture - Final No growth - less than 1,000 colonies/mL. PG Care Time/CCT Total # of Minutes Spent Total Time Spent with Patient: Total time spent is greater than 50% in coordination of care (as documented) at patient's floor/unit and/or counseling patient: Coding Level of Care Code 24662 SUB INP/OBS CARE 2/35MIN Diagnoses Fungemia B49 Septic shock A41.9; R65.21 Acute respiratory failure with hypoxia J96.01 Aspiration into lower respiratory tract T17.800A UTI due to extended-spectrum beta lactamase (ESBL) producing Escherichia coli N39.0; B96.29; Z16.12 Supratherapeutic INR R79.1 Hypernatremia E87.0 Recurrent deep vein thrombosis (DVT) I82.409 Acute kidney injury N17.9 Acute metabolic encephalopathy G93.41 Multiple sclerosis G35 Coffee ground emesis K92.0 Paraplegia G82.20 Dementia F03.90 Elevated LFTs R79.89 Elevated troponin R79.89
[2024-05-27] MEDS: POTASSIUM CHLORIDE PWD 20 MEQ PACK PO SCH (08:55)
[2024-05-27 19:55] VITALS: RESP 16
--- NOTE | 2024-05-27 20:06 | Hospitalist Progress Note ---
Date of Service May 27, 2024 Assessment & Plan (1) Fungemia: Plan: all admission blood cx's + for evita glabrata remains on caspofungin IV - day #[address] [facility] sensitivities came back - dose dependant to Fluconazole; sensitive to caspofungin repeat fungal blood cx's obtained 05/16 - negative additional blood cx's - 05/21 - negative source for fungemia - b/l great toe skin ulcers/eschars with underlying osteomyelitis?? recent urine cx x 2 without yeast no significant skin breakdown per nursing CT abd/pelvis without pathology that would lead to fungemia RUQ u/s without cholecystitis MRI brain without any source for fungal infection echo without endocarditis she is immunocompromised due to her advanced dementia status, having multiple sclerosis, being on Copaxone, etc. Dr Otero met with pt's 2 sons today -- plan is to finish caspofungin course (14 days) then transition to hospice at [facility] NO SURGERY to the toes - sons do not want aggressive care measures (2) Septic shock: Plan: source - lung (LLL pneumonia), fungemia s/p full course of IV abx for her LLL pneumonia - now off remain on IV Caspofungin for fungemia (see above) - plan 14 days in total then stop levophed weaned off 05/15/24 cortisol level >60; thus, deferred on IV hydrocortisone (3) Acute respiratory failure with hypoxia: Plan: 2nd to LLL pneumonia resolved stable in room air (4) Aspiration into lower respiratory tract: Plan: seen by speech therapy; cleared for minced/moist diet however, taking very little at meal-times (5) UTI due to extended-spectrum beta lactamase (ESBL) producing Escherichia coli: Plan: history of urine cx negative this admission, however (6) Supratherapeutic INR: Plan: INR 7.4 at peak resolved all forms of anticoagulation have been stopped due to melena appearing stools H/H remain stable, however (/ range, respectively) due to transition to hospice will not resume coumadin (7) Hypernatremia: Plan: resolved (8) Recurrent deep vein thrombosis (DVT): Plan: noted typically on coumadin 5mg daily for such INR supratherapeutic at 7.4 at time of admission now <2 s/p total of 10mg of vitamin K at time of admission due to coffee-ground emesis (by report) there have been reports of melena stool thus all forms of anticoagulation have been held at very high risk of VTE due to bed-bound status but transitioning to hospice soon (9) Acute kidney injury: Plan: Peak Cr 1.67 Cr now <1 resolved TATIANA was 2nd to septic shock (sepsis-associated ATN) (10) Acute metabolic encephalopathy: Plan: 2nd to septic shock, fungemia, LLL pneumonia, etc. although she is more awake (at times), taking some nutrition (intermittently), smiling at times - she is having severe failure to thrive I spoke with her son by phone this evening - he even said that during their last visit she simply stared at them, did not talk, etc. recent MRI brain neg for acute or subacute CVA transitioning to hospice (11) Multiple sclerosis: Plan: typically on gabapentin 600mg TID, Copaxone daily - all on hold (12) Coffee ground emesis: Plan: had such earlier in the admission does have prior h/o esophagitis remains on PPI twice daily (13) Paraplegia: Plan: acquired, 2nd to MS? 2nd to dementia? -- probably both by report is nonambulatory (14) Dementia: Plan: severe non-ambulatory DNR/DNI status with superimposed delirium (15) Elevated LFTs: Plan: uncertain etiology but ast/alt had normalized (16) Elevated troponin: Plan: peak HS troponin 155 this was likely 2nd to myocardial demand ischemia in the setting of septic shock Plan appreciate Dr Otero's assistance son, Victoriano ([phone]) - extensively updated by phone this evening told him his mother would likely d/c back to SNF next 1-2 days Admission and Anticipated Discharge Date Admission Date: May 15, 2024 Subjective patient very sleepy today she did not wake during the encounter no events overnight appetite remains poor-fair [address] Otero today from palliative - plan is to finish caspofungin course, then transition to hospice at [facility] Review of Systems Review of Systems: Unobtainable due to cognitive status Physical Exam Physical Exam: gen - very sleepy today, did not wake neck - no JVD heart - RRR, s1 s2, no murmur lungs - CTA b/l anteriorly abd - soft NT ND BS+ ext - pulses 2+ b/l feet, no edema neuro - increased tone x 4 exts skin - b/l first toes on distal sylvie - eschars - black on left, brown on right; no drainage or foul odor Results & Data Results & Data Vital Signs (Past 12 Hours) Vital Signs Temp Pulse Resp BP Pulse Ox O2 Del Method O2 Flow Rate 05/27/24 19:54 37.3 C 75 16 121/72 95 Nasal Cannula 3 05/27/24 19:44 Room Air 05/27/24 15:53 36.8 C 71 17 122/68 97 Room Air 05/27/24 11:40 Nasal Cannula 2 05/27/24 08:50 71 Laboratory Results Microbiology 05/15/24 00:40 Blood Aerobic Blood Culture - Final Evita glabrata complex 05/15/24 00:40 Blood Anaerobic Blood Culture - Final Evita glabrata complex 05/21/24 11:27 Blood Aerobic Blood Culture - Final No growth in Aerobic bottle after 5 days. 05/21/24 11:27 Blood Anaerobic Blood Culture - Final No growth in Anaerobic bottle after 5 days. 05/15/24 00:40 Blood Aerobic Blood Culture - Final Evita glabrata complex 05/15/24 00:40 Blood Anaerobic Blood Culture - Final Evita glabrata complex 05/16/24 17:56 Blood Fungal Smear - Final 05/16/24 17:56 Blood Fungal Culture - Preliminary No yeast or fungus isolated - Report 1, Additional Report to Follow. 05/15/24 03:30 Urine,Indwelling Cath Urine Culture - Final No growth - less than 1,000 colonies/mL. PG Care Time/CCT Total # of Minutes Spent Total Time Spent with Patient: Total time spent is greater than 50% in coordination of care (as documented) at patient's floor/unit and/or counseling patient: Coding Level of Care Code 27929 SUB INP/OBS CARE 2/35MIN Diagnoses Fungemia B49 Septic shock A41.9; R65.21 Acute respiratory failure with hypoxia J96.01 Aspiration into lower respiratory tract T17.800A UTI due to extended-spectrum beta lactamase (ESBL) producing Escherichia coli N39.0; B96.29; Z16.12 Supratherapeutic INR R79.1 Hypernatremia E87.0 Recurrent deep vein thrombosis (DVT) I82.409 Acute kidney injury N17.9 Acute metabolic encephalopathy G93.41 Multiple sclerosis G35 Coffee ground emesis K92.0 Paraplegia G82.20 Dementia F03.90 Elevated LFTs R79.89 Elevated troponin R79.89
[2024-05-28 07:26] LABS: Hematocrit (blood only) 31.3 % (37.0-47.0); Hemoglobin 9.6 g/dl (12.0-16.0); Mean Corpuscular Hemoglobin 27.8 pg (25.0-34.0); Mean Corpuscular Hgb Conc 30.7 g/dL (32.0-36.0); Mean Corpuscular Volume 90.7 fL (80.0-100.0); Mean Platelet Volume 10.6 fL (9.4-12.4); Platelet Count 296 K/uL (130-400); RDW Coefficient of Variation 15.5 % (11.5-14.5); RDW Standard Deviation 51.3 fL (36.4-46.3); Red Blood Count 3.45 M/uL (4.20-5.40); White Blood Count 7.08 K/ul (4.8-10.8)
[2024-05-28 07:32] VITALS: TEMP 97.7; O2SAT 94
[2024-05-28 07:50] LABS: Creatinine Clr Calc Pharmacy 74.2 ml/min
--- NOTE | 2024-05-28 11:48 | Infectious Disease Progress Nt ---
Date of Service May 28, 2024 Assessment & Plan (1) Fungemia: (2) Dementia: (3) Multiple sclerosis: (4) Acute metabolic encephalopathy: (5) Septic shock: Plan This is an 83-year-old female with a past medical history of multiple sclerosis, esophagitis, trigeminal neuralgia of the left side of the face and left-sided weakness, esophageal reflux, A flutter with RVR, DVTs, ESBL UTIs, who was brought into the ED on 05/14/24 from her assisted for altered mental status. She was recently treated for ESBL E. coli UTI with Macrobid in the assisted. Noted to have worsening altered mental status throughout the day. She arrived to the ED via EMS febrile, hypotensive, tachycardic, hypoxic and minimally responsive: BP 73/51, pulse 140, RR 44, temp 39.4, O2 sats 82% on room air. She remained hypotensive despite aggressive fluid resuscitation. She was started on Levophed, vancomycin, Zosyn and admitted to the ICU. Labs: WBC 25.23, platelets 272, BUN 68, creatinine 1.26, lactate 3.3, procalcitonin 1.53. Urine 6-8 10 WBCs. Blood cultures positive for Jaja glabrata on biofire: / bottles. Covid, RSv, Influenza PCR negative. Chest x- ray demonstrated peribronchial thickening compatible with infectious/inflammatory airway disease or viral pneumonia. No surya consolidation. Repeat Cx-ray showed a left basilar consolidation. CT abdomen pelvis showed a large amount of poorly formed stool within the rectum. Distention of the distal sigmoid colon and rectum which is chronic: Cholelithiasis without acute cholecystitis. Abdominal ultrasound with no acute abnormalities. Transthoracic cardiogram was a technically difficult study but no significant valvular abnormalities visualized. There patient is obtunded and cannot provide a history. There is no history of hardware, prosthetics. She has no central line/port. She has been started on caspofungin. Infectious disease consulted for fungemia. She is off pressors and her leukocytosis has resolved. Microbiology: Blood cultures 05/15/2024: Yeast not Jaja albicans/dub in 4/4 bottles, Jaja glabrata on BC ID Urine culture 05/15/2024 no growth -Fungal blood culture 05/16/2024 NGTD - Blood culture 05/21 NGTD Antibiotics/antifungals: Vancomycin 05/14 Zosyn 05/14 Meropenem Caspofungin 05/16ongoing # Septic shock, off pressors # Fungemia # Leukocytosis,resolved # Encephalopathy # Acute hypoxic respiratory failure # Multiple sclerosis Discussion:Septic shock in the setting of fungemia of unknown etiology. She does not have an obvious source. No GI or pathology. Abdomen benign. CT abdomen without any acute findings. Urine culture with no significant growth. She has a history of esophagitis but no report of recent dysphagia or issues swallowing. I cannot fully evaluate her oropharynx given her mental status. She has a left ?candidal appearing rash under the Left breast. She has bilateral ulcers of tip of great toes with b L great toe eschar. No hardware/prosthetics. No central lines. BL foot xray with no osteo. R foot MRi with ? early great toe osteo --This may be source of fungemia. Fungal OM usually treated for 6-12 months and source control is needed. Yeast Id reviewed and dose dependant to FLuconazole . S caspofungin. FDC antifungal therapy will be challenging. MRI head reviewed. No acute findings to explain fungemia or sequela. On 05/27 family decided on no interventions/aggressive measures; no KIRIT, no surgical intervention on toe. She will transition to hospice after a 2 week course of antifungals. Recommendation: Continue Caspofungin 50 mg Iv daily. ( 05/16-05/30) which will complete 2 weeks of therapy from sterile BC. D/w team ID will sign off. Alok Elliott MD, MPH Infectious Disease ID Connect [facility], ID Division Call [phone] with questions Admission and Anticipated Discharge Date Admission Date: May 15, 2024 Subjective This patient recommendation is based on a telemedicine consult request which was completed asynchronously through chart review and information provided by the primary physician. The patient was not seen or examined today. The evaluation is consultative in nature and all patient care and treatment decisions can either be accepted or rejected by the patient's primary hospital-based treating physician using their own independent medical judgment for their patient. Time Spent Reviewing Chart: 11 - 20 minutes Family has decided on no interventions and to complete a 2 week course of antifungals for fungemia No change in MS. Results & Data Vital Signs (Past 12 Hours) Vital Signs Temp Pulse Resp BP Pulse Ox O2 Del Method O2 Flow Rate 05/28/24 07:32 36.5 C 57 L 16 134/61 94 Nasal Cannula 3 05/28/24 07:25 Nasal Cannula 3 Laboratory Results Short CBC 05/28/24 Range/Units 06:47 WBC 7.08 (4.8-10.8) K/ul Hgb 9.6 L (12.0-16.0) g/dl Hct 31.3 L (37.0-47.0) % Plt Count 296 (130-400) K/uL BMP 05/28/24 06:47 Creatinine 0.63 Diagnostic Findings Microbiology 05/15/24 00:40 Blood Aerobic Blood Culture - Final Jaja glabrata complex 05/15/24 00:40 Blood Anaerobic Blood Culture - Final Jaja glabrata complex 05/21/24 11:27 Blood Aerobic Blood Culture - Final No growth in Aerobic bottle after 5 days. 05/21/24 11:27 Blood Anaerobic Blood Culture - Final No growth in Anaerobic bottle after 5 days. 05/15/24 00:40 Blood Aerobic Blood Culture - Final Jaja glabrata complex 05/15/24 00:40 Blood Anaerobic Blood Culture - Final Jaja glabrata complex 05/16/24 17:56 Blood Fungal Smear - Final 05/16/24 17:56 Blood Fungal Culture - Preliminary No yeast or fungus isolated - Report 1, Additional Report to Follow. 05/15/24 03:30 Urine,Indwelling Cath Urine Culture - Final No growth - less than 1,000 colonies/mL. Medications Administered Home Medications Medication Instructions Recorded Confirmed Last Taken Saccharomyces boulardii 250 mg 250 mg PO BID 02/23/24 05/15/24 05/14/24 16:30 capsule (Florastor) acetaminophen 325 mg tablet 650 mg PO Q6 PRN Fever Or Pain 02/23/24 05/15/24 Unknown (Tylenol) ascorbic acid (vitamin C) 1,000 mg 1 g PO AMHS 02/23/24 05/15/24 05/14/24 20:30 tablet (Vitamin C) bisacodyl 10 mg rectal suppository 10 mg [place] HS 02/23/24 05/15/24 05/14/24 20:30 cholecalciferol (vitamin D3) 25 25 mcg PO QAM 02/23/24 05/15/24 05/14/24 08:30 mcg (1,000 unit) tablet (Vitamin D3) citalopram 10 mg tablet 10 mg PO DAILY 02/23/24 05/15/24 05/14/24 08:30 cyanocobalamin (vitamin B-12) 1,000 mcg PO QAM 02/23/24 05/15/24 05/14/24 08:30 1,000 mcg tablet (Vitamin B-12) gabapentin 600 mg tablet 600 mg PO TID 02/23/24 05/15/24 05/14/24 16:30 glatiramer 20 mg/mL subcutaneous 20 mg subcut QAM 02/23/24 05/15/24 05/14/24 08:30 syringe (Copaxone) lip protective (padimate o) 1 ea topical QPM 02/23/24 05/15/24 05/14/24 20:30 methenamine hippurate 1 gram tablet 1 g PO BID 02/23/24 05/15/24 05/14/24 16:30 metoprolol tartrate 25 mg tablet 25 mg PO BID 02/23/24 05/15/24 05/14/24 20:30 multivitamin 1 tab PO QAM 02/23/24 05/15/24 05/14/24 08:30 ondansetron HCl 4 mg tablet 4 mg PO Q8 PRN Nausea 02/23/24 05/15/24 Unknown pantoprazole 40 mg tablet,delayed 40 mg PO QAM 02/23/24 05/15/24 05/14/24 08:30 release polyethylene glycol 3350 17 gram 17 g PO QAM 02/23/24 05/15/24 05/14/24 08:30 oral powder packet (Miralax) potassium chloride 10 mEq 20 meq PO TID 02/23/24 05/15/24 05/14/24 16:30 tablet,extended release sennosides 8.6 mg-docusate sodium 1 tab-cap PO AMHS 02/23/24 05/15/24 05/14/24 20:30 50 mg tablet (Senokot-S) tramadol 50 mg tablet 100 mg PO TID 02/23/24 05/15/24 05/14/24 16:30 warfarin 5 mg tablet 5 mg PO QPM 02/23/24 05/15/24 05/14/24 20:30 Active Medications Generic Name Dose Route Start Last Admin Trade Name Freq PRN Reason Stop Dose Admin Bisacodyl 10 mg 05/20/24 21:00 05/27/24 20:11 Bisacodyl 10 Mg Supp [place] 06/19/24 20:59 Not Given HS JAVID Citalopram Hydrobromide 10 mg 05/21/24 09:00 05/28/24 08:15 Citalopram 20 Mg Tab PO 06/20/24 08:59 10 mg DAILY JAVID Administration Enoxaparin Sodium 80 mg 05/19/24 17:00 05/21/24 17:47 Enoxaparin 80 Mg/0.8 Ml Syr SQ 06/18/24 16:59 Not Given Q12H JAVID Furosemide 20 mg 05/24/24 12:30 05/28/24 08:14 Furosemide 20 Mg Tab PO 06/29/24 23:55 20 mg QAM JAVID Administration Caspofungin 50 mg/ Sodium 260 mls @ 260 mls/hr 05/18/24 12:00 05/28/24 09:14 Chloride IV 06/17/24 11:59 Infused DAILY JAVID Infusion Metoprolol Succinate 25 mg 05/25/24 09:00 05/28/24 08:14 Metoprolol Succ 25mg Ext Rel Tab PO 06/24/24 08:59 Not Given QAM AJVID Miconazole Nitrate 1 appln 05/21/24 21:00 05/28/24 08:16 Miconazole Nitrate Powder 85 Gm EXT 06/20/24 20:59 1 appln TID JAVID Administration Pantoprazole Sodium 40 mg 05/21/24 21:00 05/28/24 08:15 Pantoprazole 40 Mg Tab PO 06/20/24 20:59 40 mg BID JAVID Administration Potassium Chloride 40 meq 05/27/24 09:00 05/28/24 08:14 Potassium Chloride Pwd 20 Meq Pack PO 06/26/24 08:59 40 meq DAILY JAVID Administration Tramadol HCl 25 mg 05/24/24 09:00 05/28/24 08:12 Tramadol Hcl 50 Mg Tablet PO 06/23/24 08:59 25 mg TID JAVID Administration
--- NOTE | 2024-05-28 12:03 | Discharge Summary ---
Discharge Summary Date of Service date of admission - May 15, 2024 date of discharge - May 28, 2024 Principal Dx & Hospital Course #1 = Principal Diagnosis (1) Fungemia: all admission blood cultures were positive for evita glabrata received IV caspofungin for 13 days while hospitalized [facility] sensitivities returned showing some sensitivity to fluconazole (dose dependent) and sensitivity to caspofungin repeat fungal blood cx's 05/16 - negative additional blood cx's - 05/21 - negative source for fungemia - b/l great toe skin ulcers/eschars with underlying osteomyelitis?? recent urine cx x 2 without yeast no significant skin breakdown per nursing CT abd/pelvis without pathology that would lead to fungemia RUQ u/s without cholecystitis MRI brain without any source for fungal infection echo without endocarditis she is immunocompromised due to her advanced dementia status, having multiple sclerosis, being on Copaxone, etc. despite 10+ days of IV caspofungin for her fungemia she never had meaningful, generalized improvement - she had severe failure to thrive with ongoing lethargy/altered mental status, poor appetite, etc. Dr Lacho Otero from palliative care met with the pt's 2 sons -- plan is to finish caspofungin course (14 days) then transition to Hospice at [facility] Pt's sons do NOT desire surgery on her toes and do not want aggressive care measures see below re: transition to palliative care/comfort care/Hospice (2) Septic shock: source - lung (LLL pneumonia), fungemia s/p full 7-day course of IV antibiotics for her LLL pneumonia s/p 14 days (13 days while hospitalized, 1 dose at SNF) of IV Caspofungin for fungemia (see above) required pressors upon presentation to the hospital; levophed weaned off 05/15/24 (3) Acute respiratory failure with hypoxia: 2nd to LLL pneumonia resolved stable in room air will use NC O2 for comfort upon transition to SNF (4) Aspiration into lower respiratory tract: seen by speech therapy; cleared for minced/moist diet; however, taking very little to nothing at meal-times (5) Supratherapeutic INR: INR 7.4 at peak (present on admission) resolved all forms of anticoagulation have been stopped due to melena appearing stools and transition to Hospice (6) Hypernatremia: resolved with hypotonic fluids earlier in the hospitalization (7) Recurrent deep vein thrombosis (DVT): typically on coumadin 5mg daily for such INR supratherapeutic at 7.4 at time of admission s/p total of 10mg of vitamin K at time of admission due to coffee-ground emesis (by report) due to transitioning to Hospice all forms of anticoagulation have been stopped (8) Acute kidney injury: Peak Cr 1.67 Cr now <1 TATIANA was 2nd to septic shock (sepsis-associated ATN) (9) Acute metabolic encephalopathy: 2nd to septic shock, fungemia, LLL pneumonia, etc. She was obtunded for the first 2-3 days of the hospitalization although mentation improved modestly -- she was more awake at times (eyes open), taking some nutrition (very intermittently), smiling at times, etc. -- she had severe failure to thrive she also had long periods of sleeping during the day and night MRI brain neg for acute or subacute CVA transitioning to Hospice at discharge (10) Multiple sclerosis: typically on gabapentin 600mg TID, Copaxone daily - all stopped - transitioning to Hospice (11) Coffee ground emesis: had such earlier in the admission does have prior h/o esophagitis will continue her on PPI for comfort (12) Paraplegia: acquired, 2nd to MS? 2nd to dementia? -- probably both (13) Dementia: severe non-ambulatory DNR/DNI status superimposed hypoactive delirium severe failure to thrive severe anorexia etc transitioning to Hospice (14) Elevated LFTs: uncertain etiology but ast/alt had normalized (15) Elevated troponin: peak HS troponin 155 this was likely 2nd to myocardial demand ischemia in the setting of septic shock (16) Chronic prescription opiate use: previously was on tramadol chronically for pain since she cannot take PO meds reliably due to altered mental status changed to fentanyl patch 12mcg q3days will also use roxanol 5mg q3h prn breakthrough pain & dyspnea prescription for ativan 0.5mg q6h prn anxiety/agitation/sleep also given (17) Palliative care patient: Patient is transitioning to Hospice upon return to [facility]. Plan sonVictoriano ([phone]) - extensively updated by phone multiple times throughout the hospitalization Admission HPI Per Admitting Provider The patient is a 83-year-old female with a past medical history including recurrent DVT, ESBL UTI, Pseudomonas infection, generalized weakness, left lower extremity cellulitis, meningitis, upper GI bleed, paraplegia, sepsis, B12 deficiency, abscess/cellulitis of chest wall, SVT, multiple sclerosis, trigeminal neuralgia of left side of face and left-sided weakness. She is brought to the emergency department altered, obtunded, hypotensive, tachycardic, elevated temperature and hypoxic. The patient's blood pressure decreased to a low of 73/51 despite aggressive fluid resuscitation, and was started on Levophed, vancomycin IV, Zosyn IV and 2 L fluid bolus of normal saline. The patient continued to be unresponsive and will be admitted to the ICU for further management. Her son confirmed via telephone, and family later confirmed and person, that the patient is to be DNR/DNI Discharge Exam gen - very sleepy during my discharge exam; did not wake despite calling her name neck - no JVD heart - RRR, s1 s2, no murmur lungs - CTA b/l anteriorly abd - soft NT ND BS+ ext - pulses 2+ b/l feet, no edema neuro - increased tone x 4 exts skin - b/l first toes on distal sylvie - eschars - black on left, brown on right; no drainage or foul odor Discharge Plan Discharge Items Patient Disposition: Transfer [facility] Fac Reason For Visit: SEPTIC SHOCK, HYPOTENSION ON PRESSORS Discharge Diagnosis: 1. septic shock 2. pneumonia 3. fungemia 2nd to evita glabrata 4. severe metabolic encephalopathy 5. advanced dementia 6. MS 7. b/l great toe ulcers/wounds 8. paraplegia 9. h/o DVT 10. TATIANA - sepsis-associated 11. transition to hospice Activity: Resume your previous activity Non-emergency contact: Primary Care Provider Call non-emergency contact if: you have any medication questions Follow-up/Referrals: [facility] [Primary Care Provider] - Diet: Regular Diet Comment: Minced & moist texture Addtl Attending Provider Instructions: Mrs Mckenzie was treated for septic shock 2nd to pneumonia as well as fungemia due to evita glabrata. Cause of the fungemia was uncertain. Stay was complicated by severely altered mental status, poor oral intake, & ongoing failure to thrive despite maximal medical efforts. Palliative care team met with the patient's 2 sons on 05/27/24 and Mrs Mckenzie will transition to hospice status upon return to [facility]. At this time, if Mrs Mckenzie develops a recurrent illness or worsening medical status, do not send back to hospital - family wishes are for her to remain at [facility] for end-of-life care. Mrs Mckenzie has 1 additional dose of IV caspofungin 50mg x 1 on 05/29/24. Then d/c the caspofungin. Continue NC O2 for comfort. [place] or Purewick catheter for comfort. It was our pleasure to care for Mrs Mckenzie! -Dr Daugherty Pending Studies at Discharge: No Stand-Alone Forms: My [facility] Skilled Items Patient informed of condition?: No DNR: Yes Discharge Level of Care: Skilled Communicable Disease: Yes Discharge Prognosis: Deteriorating Lines: Peripheral IV Urinary Catheter: No Medications and DC Order Prescriptions: New miconazole nitrate [Desenex] 2 % Powder 1 applic EXT TID Qty: 30 1RF lorazepam [Ativan] 0.5 mg tablet 0.5 mg PO Q6H PRN (Reason: anxiety or agitation or sleep) Qty: 10 0RF caspofungin 50 mg recon soln 50 mg IV ONCE Rx Instructions: give 1 dose on 05/29/24 then discontinue. fentanyl 12 mcg/hr patch 72 hour 1 patch transdermal Q72H Qty: 5 0RF morphine concentrate 100 mg/5 mL (20 mg/mL) solution 5 mg PO Q3H PRN (Reason: pain) Qty: 30 0RF Continued acetaminophen [Tylenol] 325 mg Tablet 650 mg PO Q6 PRN (Reason: Fever Or Pain) lip protective (padimate o) Stick 1 ea TOPICAL QPM Changed bisacodyl 10 mg Suppository 10 mg MS HS PRN (Reason: constipation/impaction) Qty: 0 0RF ondansetron 4 mg tablet,disintegrating 4 mg PO Q6H PRN (Reason: nausea and vomiting) Qty: 10 0RF lansoprazole 30 mg tablet,disintegrat, delay rel 30 mg PO DAILY Qty: 30 5RF Discontinued multivitamin Tablet 1 tab PO QAM ascorbic acid (vitamin C) [Vitamin C] 1,000 mg Tablet 1 g PO AMHS gabapentin 600 mg tablet 600 mg PO TID polyethylene glycol 3350 [Miralax] 17 gram Powder In Packet 17 g PO QAM citalopram 10 mg tablet 10 mg PO DAILY sennosides-docusate sodium [Senokot-S] 8.6-50 mg Tablet 1 tab-cap PO AMHS cyanocobalamin (vitamin B-12) [Vitamin B-12] 1,000 mcg Tablet 1,000 mcg PO QAM potassium chloride 10 mEq tablet extended release 20 meq PO TID tramadol 50 mg tablet 100 mg PO TID methenamine hippurate 1 gram tablet 1 g PO BID warfarin 5 mg tablet 5 mg PO QPM Saccharomyces boulardii [Florastor] 250 mg Capsule 250 mg PO BID metoprolol tartrate 25 mg tablet 25 mg PO BID cholecalciferol (vitamin D3) [Vitamin D3] 25 mcg (1,000 unit) Tablet 25 mcg PO QAM glatiramer [Copaxone] 20 mg/mL Syringe 20 mg SUBCUT QAM Discharge Orders: Discharge Order (Routine); Ordered 05/28/24 Ordered By: Roni Daugherty Admission Data Admit Date/Time: 05/15/24 02:17 Attending Provider: Roni Daugherty Admit Provider: Stevo Macario [facility]; Yaniv Light; Alok Elliott; John Dover Other Interventions: Discharge Summary Assessment (RN) Last Done: 05/28/24 12:12 Hospital Stay Data Consultations Non Cdl Driver Infectious Diseases Palliative Care Speech therapy Procedures Performed 1. echocardiogram 2. one unit PRBCs 3. two units FFPs Diagnostic Imagining Performed Chest X-Ray 05/14/24 23:28 XR chest 1V portable CLINICAL HISTORY: Sepsis TECHNIQUE: Single frontal radiograph of the chest was obtained. Comparison: Comparison is made to chest radiograph 02/23/2024 FINDINGS: No lines and tubes are seen. Peribronchial thickening is noted. The lungs are clear. No evidence of pleural effusion or pneumothorax. IMPRESSION: Peribronchial thickening is seen compatible with infectious/inflammatory airways disease or viral pneumonia. No surya consolidation is seen. ACT 112: Negative or not required by law. Electronically signed by: Ted Armstrong M.D. 05/15/2024 6:51 AM Chest X-Ray 05/15/24 06:30 XR chest 1V portable CLINICAL HISTORY: eval lung doll TECHNIQUE: Single frontal radiograph of the chest was obtained. Comparison: Comparison is made to chest radiograph 05/14/2024 FINDINGS: No lines and tubes are seen. Calcified aortic knob is seen. Bibasilar atelectasis is seen. No evidence of pleural effusion or pneumothorax. IMPRESSION: Bibasilar atelectasis is seen. No evidence of consolidation is definitely seen. ACT 112: Negative or not required by law. Electronically signed by: Ted Armstrong M.D. 05/15/2024 6:58 AM Chest X-Ray 05/16/24 11:23 SINGLE VIEW CHEST CLINICAL HISTORY: Sepsis FINDINGS: An AP, portable, upright chest radiograph is compared to study dated 05/15/2024 and correlated with chest CT dated 02/22/2024. The examination is sign ificantly degraded by portable technique and patient rotation. The heart is enlarged and noted atherosclerotic calcification of the thoracic aorta. The pulmonary vasculature is noncongested. Emphysema and chronic interstitial thickening is similar to previous. Airspace consolidation is seen at the left lung base. Scar/atelectasis is noted at the right lung base. No large pleural effusion or pneumothorax is identified. The skeletal structures are osteopenic. The bony thorax is grossly intact. Degenerative change is noted in the thoracic spine. IMPRESSION: 1. Cardiomegaly and emphysema without radiographic evidence of congestive failure. 2. There is left basilar consolidation. Correlate clinically for evidence of pneumonia/aspiration place. Radiographic follow-up to resolution is recommended ACT 112: Negative or not required by law. Electronically signed by: Issac Rebolledo M.D. 05/16/2024 1:07 PM Abdomen/Pelvis CT 05/17/24 15:19 CT OF THE ABDOMEN AND PELVIS WITH CONTRAST CLINICAL HISTORY: fungemia, source uncertain; eval intra-abd path COMPARISON STUDY: CT of the abdomen and pelvis February 22, 2024. TECHNIQUE: Following IV administration of 94 mL of Optiray, axial images of the abdomen and pelvis were obtained from the lung bases to the proximal femurs. Images were reviewed in the axial, sagittal, and coronal planes. IV contrast was administered without complication. Automated exposure control was utilized for the study. A dose lowering technique was utilized adhering to the principles of ALARA. CT DOSE: 1741.22 mGy.cm FINDINGS: Visualized portions of the lung bases demonstrate trace bilateral pleural effusions. Subpleural opacities within the lower lobes and lingula are present. The heart is mildly enlarged. No pneumatosis, free air or portal venous gas is present. There is a small hiatal hernia. There is hepatic steatosis. No hepatic lesions are present. The gallbladder is mildly distended. There are la yering gallstones within the gallbladder. There is no pericholecystic infiltration. Spleen, adrenal glands and pancreas are unremarkable. There is marked bilateral renal atrophy. Left upper pole renal cyst is present. A few subcentimeter renal lesions are too small to characterize. There is no hydronephrosis. There is no evidence for a bowel obstruction. Colonic diverticulosis without evidence for acute diverticulitis. A large amount of poorly formed stool within the rectum is noted. Distention of the rectum and distal sigmoid colon is noted. There is no evidence for a bowel obstruction. Mild presacral stranding is similar to prior exam. Laxity of the anterior abdominal wall is again noted. A [place] balloon and gas within the bladder present. Mild body wall edema. No fluid collections within the abdomen or pelvis. IMPRESSION: 1. Trace bilateral pleural effusions with bilateral lower lobe and lingular airspace opacities, partially imaged on this exam. The findings could reflect atelectasis, pneumonia or aspiration pneumonitis. 2. Large amount of poorly formed stool within the rectum. Distention of the distal sigmoid colon and rectum, similar to prior exams. This is likely chronic. No evidence for a bowel obstruction. No bowel wall thickening. 3. Colonic diverticulosis. No evidence for acute diverticulitis. 4. Cholelithiasis with mild gallbladder distention. No convincing evidence for acute cholecystitis. ACT 112: Negative or not required by law. Electronically signed by: Naga Genao M.D. 05/17/2024 5:59 PM Gallbladder Ultrasound 05/19/24 00:00 US gallbladder CLINICAL HISTORY: sepsis, fungemia, gallstones; r/o cholecystitis TECHNIQUE: Multiple real-time sonographic images of the right upper quadrant were obtained. Comparison: Comparison is made to CT abdomen pelvis 05/17/2024 FINDINGS: The liver is diffusely echogenic in appearance with poor ultrasound penetration, with normal contour, which is consistent with fatty infiltration. No focal mass lesions are seen. No intrahepatic ductal dilatation is seen. Linear hyperechoic foci with posterior shadowing are identified layering dependently within the gallbladder, which are consistent with gallstones. Gallbladder sludge is also seen. The gallbladder wall is not thickened. There is no pericholecystic fluid present. A sonographic Eller's sign was not elicited by the director of special education. The common duct measures 0.4 cm in diameter at the level of the hepatic artery. The visualized portions of the pancreas appear normal. The right kidney shows normal echogenicity, cortical thickness and renal contour. The right kidney shows no evidence of hydronephrosis or mass. No ascites or free fluid is seen in Beasley's pouch. IMPRESSION: 1. No acute abnormalities and in particular no evidence of acute cholecystitis. 2. No evidence of acute cholecystitis. ACT 112: Negative or not required by law. Electronically signed by: Ted Armstrong M.D. 05/19/2024 8:58 AM Foot X-Ray 05/22/24 07:34 XR foot RT 2V CLINICAL HISTORY: foot ulcers (tip great toes), fungemia COMPARISON: None FINDINGS: Alignment of the left foot is anatomic. Tarsometatarsal joints are intact. There is osteopenia. There are no fractures. No bony erosion is identified. There is a bandage on the left great toe. There are plantar and posterior calcaneal spurs. Moderate mid foot osteoarthritis is present. IMPRESSION: No fractures within the left foot. No radiographic evidence for acute osteomyelitis. ACT 112: Negative or not required by law. Electronically signed by: Naga Genao M.D. 05/22/2024 8:28 AM Foot X-Ray 05/22/24 07:34 XR foot LT 2V HISTORY: 83 years-old Female foot ulcers (tip great toes), fungemia soft tissue edema with possible osteomyelitis COMPARISON: Right foot radiograph same day, left foot radiographs 02/06/2015 TECHNIQUE: 2 views of the left foot FINDINGS: Demineralized appearance of the bones. Diffuse soft tissue swelling moderate to marked within the forefoot. Arterial calcifications. Multifocal osteoarthritis which is moderate within the mid foot and hind foot and probably mild within the forefoot. There is a soft tissue ulcer involving the distal great toe. No definite acute fracture, dislocation or osseous identified. IMPRESSION: 1. Soft tissue swelling also the distal great toe. 2. No acute fracture, dislocation or definite osseous erosion identified at this time. If there is further clinical concern, MRI may be considered. ACT 112: Negative or not required by law. The above report was generated using voice recognition software. It may contain grammatical, syntax or spelling errors. Electronically signed by: Devaughn López M.D. 05/22/2024 8:21 AM Brain MRI 05/22/24 11:02 EXAM: MR brain wo/w con CLINICAL HISTORY: hx of MS, advanced dementia. no known trauma to head. possible sepsis. injected 8ml zach @ 1725. TECHNIQUE: Different pulse sequences were performed in different planes for the brain without and with GD-DTPA injection. 8ml zach was administered. Images were sent through PACs for interpretation. COMPARISON: prior CT dated 02/22/2024.Prior MRI study dated 04/29/2015. FINDINGS: No hyperacute or acute infarctions could be detected. No definite restricted diffusion to suggest an inflammatory process. Chronic infarction with her cystic gliosis and possible communication with the left lateral ventricle posterior horn. Findings are consistent with chronic infarction sequelae. Altered deep white matter signals are seen at the forceps minor, forceps major, periventricular, and centrum semiovale regions. These exhibit bright signals on T2 and FLAIR WI and intermediate signals on T1 WI. No appreciable enhancement after Gd-DTPA injection. Findings suggest consequences of small vessel disease, e.g., hypertensive and/or diabetic vasculopathy, vs. consequences of demyelinating disease, e.g., multiple sclerosis. Age-appropriate degenerative involutional changes are denoted by symmetrical dilatation of the ventricular system, prominent cortical sulci, Sylvian fissures, cerebellar, vermian folia, and basal cisterns. More widening of the temporal lobes of the lateral ventricles. Most appreciated on the right side, measuring 18 mm, suggesting bilateral temporal lobe atrophy. Downward herniation of the suprasellar cistern through the diaphragma sellae, compressing the pituitary gland against the sellar floor consistent with primary empty sella. Hyperostosis frontalis interna. Right squamous temporal Bone arachnoid granulation. Normal MRI appearance of the cerebellar parenchymal signals. Normal MRI appearance of the central joshua matter aggregates. Normal MRI appearance of different anatomical parts of the brain stem, namely the midbrain, itzel, and medulla oblongata. Normal MRI appearance of the petrous temporal bones, brainstem, vestibule cochlear nerves, and cerebellopontine angles with no definite masses. No shift of midline structures. No intracerebral or extra-axial hematomas or masses. Normal MRI appearance of orbital structures, both globes, optic nerves, optic chiasm, optic tracts, and optic radiations. The scanned paranasal sinuses are unremarkable. Deviation of the nasal septum to the left side. IMPRESSION: 1. No hyperacute or acute infarctions. 2. No intracerebral or extra axial hematoma. 3. No definite current MRI features to suggest an inflammatory process. 4. 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 5. Altered deep white matter signals with anatomical distribution and imaging features consistent with the consequences of small vessel disease, e.g., hypertensive and/or diabetic vasculopathy, vs. consequences of demyelinating disease, e.g., multiple sclerosis. ([place]as, grade 3). 6. Age-appropriate degenerative involutional changes with associating imaging features suggest more atrophy of the temporal lobes, more appreciated on the right side. Correlation with CLINICAL score is recommended. 7. Primary empty sella. 8. Hyperostosis frontalis interna. 9. Right squamous temporal Bone arachnoid granulation. 10. The comparison matches the CT findings and is consistent with a stationary course. Electronically signed by Brandan Guevara 05-22-2024 7:27 PM Foot MRI 05/23/24 00:00 MR foot LT wo/w con HISTORY: 83 years-old Female fungemia, chronic 1st toe wounds, osteo? Cellulitis with bilateral foot pain COMPARISON: Left foot radiographs 05/22/2024 TECHNIQUE: Multiplanar multisequence MRI of the left foot was obtained with and without IV contrast. FINDINGS: Motion degraded exam. Diffuse muscle atrophy with moderate to extensive subcutaneous edema, most pronounced dorsally. No drainable fluid collections. Minimal marrow edema involves the distal aspect of the first distal phalanx with preserved T1 marrow signal. Trace first MTP joint effusion. No acute fracture, dislocation or osseous erosion. No enhancing mass lesions identified. [id number] osteoarthritis. No suspicious enhancement. IMPRESSION: 1. Minimal marrow edema of the first distal phalanx with preserved T1 marrow s ignal suggestive of osteitis. Early developing osteomyelitis could appear similarly. 2. No osseous erosions identified. 3. Subcutaneous edema may represent cellulitis, venous stasis or lymphedema. 4. No fluid collection to suggest abscess. ACT 112: Negative or not required by law. The above report was generated using voice recognition software. It may contain grammatical, syntax or spelling errors. Electronically signed by: Devaughn López M.D. 05/23/2024 1:47 PM Foot MRI 05/23/24 00:00 MR foot RT wo/w con HISTORY: 83 years-old Female fungemia, chronic 1st toe wounds, osteo? Chronic bilateral foot pain with possible osteomyelitis COMPARISON: Right foot radiographs 05/22/2024 TECHNIQUE: Multiplanar multisequence MRI of the right foot was obtained with and without IV contrast. FINDINGS: Motion degraded exam. There is severe diffuse muscle atrophy. Demineralized appearance of the bones. [id number] multifocal osteoarthritis. No acute fracture, dislocation or osseous erosion identified. Minimal marrow edema of the first distal phalanx with preserved T1 signal. Plantar intramuscular edema of the medial forefoot, likely secondary to denervation change. Subcutaneous edema is most pronounced dorsally. IMPRESSION: 1. Motion degraded exam. 2. Minimal marrow edema of the first distal phalanx with preserved T1 marrow signal suggestive of osteitis. Early developing osteomyelitis could appear similarly. 3. Subcutaneous edema without abscess. 4. Chronic denervation changes with osteoarthritis. ACT 112: Negative or not required by law. The above report was generated using voice recognition software. It may contain grammatical, syntax or spelling errors. Electronically signed by: Devaughn López M.D. 05/23/2024 1:43 PM Pending Results Patient Have Any Pending Studies at Discharge: No Discharge Instructions Given to Patient (Per Discharging Provider) Mrs Mckenzie was treated for septic shock 2nd to pneumonia as well as fungemia due to evita glabrata. Cause of the fungemia was uncertain. Stay was complicated by severely altered mental status, poor oral intake, & ongoing failure to thrive despite maximal medical efforts. Palliative care team met with the patient's 2 sons on 05/27/24 and Mrs Mckenzie will transition to hospice status upon return to [facility]. At this time, if Mrs Mckenzie develops a recurrent illness or worsening medical status, do not send back to hospital - family wishes are for her to remain at [facility] for end-of-life care. Mrs Mckenzie has 1 additional dose of IV caspofungin 50mg x 1 on 05/29/24. Then d/c the caspofungin. Continue [place] O2 for comfort. [place] or Pure[place] catheter for comfort. It was our pleasure to care for Mrs Mckenzie! -Dr Daugherty Total Time Total Time Spent Total Time Spent (In Minutes): 50 Coding Level of Care Code 14925 INP/OBS DISCH >30 MIN Diagnoses Fungemia B49 Septic shock A41.9; R65.21 Acute respiratory failure with hypoxia J96.01 Aspiration into lower respiratory tract T17.800A Supratherapeutic INR R79.1 Hypernatremia E87.0 Recurrent deep vein thrombosis (DVT) I82.409 Acute kidney injury N17.9 Acute metabolic encephalopathy G93.41 Multiple sclerosis G35 Coffee ground emesis K92.0 Paraplegia G82.20 Dementia F03.90 Elevated LFTs R79.89 Elevated troponin R79.89 Chronic prescription opiate use Z79.891 Palliative care patient Z51.5
[2024-05-28 12:13] VITALS: BP 149/81; PULSE 84
== END 2024-05-28 13:16 | DRG 871 ==
LOC: ED 23:20 → SUATTDRO 05-15 02:17 → 1E 05-15 02:17 → 2W 05-16 18:55